=== PATIENT | male | born 1985 | race Caucasian/White ===

== ENCOUNTER 2018-01-02 12:04 | Inpatient (IN) ==
[2018-01-02] MEDS ORDERED: Ibuprofen 600 MG Tablet PO ONE (12:51)
[2018-01-02] MEDS ORDERED: Piperacil/Tazo 4.5 GM Premix 4.5 GM/100 ML BAG IV.SIG ONE (13:01)
[2018-01-02 13:08] LABS: ABG Base Excess 0.1 mmol/L (-2-2); ABG PCO2 27 mmHg (38-42); ABG PO2 78 mmHg (61-120)
--- NOTE | 2018-01-02 13:13 | ED ---
HPI General Chief complaint: Abdominal Pain Stated complaint: bilateral leg adema/vomiting blood/sob/poss fever History of Present Illness HPI narrative: Patient is a 32-year-old male with history of alcoholic cirrhosis , hepatitis C who presents emergency department for a week and a half history of worsening swelling of his legs his scrotum gradually worsening shortness of breath as well. He states that he did have a drink about a week and half ago, nursing staff reports to me that he was drinking in the waiting room as denies IV drug abuse history. No chest pain but does endorse abdominal pain which is generalized. No constipation no diarrhea no blood in stool. Related Data Home Medications Medication Instructions Recorded Confirmed No Known Home Medications 01/02/18 01/02/18 Allergies Allergy/AdvReac Type Severity Reaction Status Date / Time codeine Allergy Severe HIVES Verified 01/02/18 12:41 phenytoin Allergy Severe HIVES Verified 01/02/18 12:41 Review of Systems ROS: all other systems reviewed are negative PMFSH Medical History Medical History Afib (Acute) Hep C w/o coma, chronic (Acute) Hypertension (Acute) Liver cirrhosis (Acute) Substance abuse (Acute) Surgical History Surgical History No history of previous surgery (Acute) Social History Social History Substance History: Past History Second Hand Smoke Exposure: Yes Smoking Status: Heavy tobacco smoker Tobacco Type: Cigarettes How Often Do You Have a Drink Containing Alcohol: 2 to 4 times a month Recent Travel in [facility] within the Last 8 Weeks: No Recent Out of Country Travel within the Last 8 Weeks: No Immunization History Tetanus Immunization: Unable to Assess Hx Influenza Vaccine This Season: No Exam Narrative Exam Narrative: GENERAL: Well-developed well-nourished nontoxic appearing 32- year-old male. SKIN: Focused skin assessment warm/dry. Mildly jaundiced HEAD: Atraumatic. Normocephalic. EYES: Pupils equal and round. Positive scleral icterus. No injection or drainage. ENT: No nasal bleeding or discharge. Mucous membranes pink and moist. NECK: Trachea midline. No JVD. CARDIOVASCULAR: Regular rhythm with tachycardia. No murmur appreciated. RESPIRATORY: No accessory muscle use. Bibasilar rales, tachypnea peer. Breath sounds equal bilaterally. GASTROINTESTINAL: Abdomen soft, non-tender, nondistended. Hepatic and splenic margins not palpable. Genitourinary: Exam shows edematous scrotum, non-erythematous, minimally tender to palpation. Penis appears normal, circumcised. No edema of the perineal area. No redness no erythema of the perineal area. MUSCULOSKELETAL: No obvious deformities. No clubbing. No cyanosis. There is 2 + pitting edema from his bellybutton distally, NEUROLOGICAL: Awake and alert. No obvious cranial nerve deficits. Motor grossly within normal limits. Normal speech. PSYCHIATRIC: Appropriate mood and affect; insight and judgment normal. Course Initial Documented Vital Signs Temperature 103.2 F H 01/02/18 12:35 Pulse Rate 119 H 01/02/18 12:35 Respiratory Rate 24 01/02/18 12:35 Blood Pressure 180/70 H 01/02/18 12:35 Pulse Oximetry 96 01/02/18 12:35 Last Documented Vital Signs Temperature 97.8 F 01/02/18 20:32 Pulse Rate 81 01/02/18 20:32 Respiratory Rate 23 01/02/18 20:32 Blood Pressure 112/54 L 01/02/18 20:32 Pulse Oximetry 100 01/02/18 20:32 Critical Care Time Critical Care Time: Yes Total Critical Care Time: 35 Attestation: Critical care time is 35 minutes. Billable procedure time not included. Significant risk to patient disability and organ failure. Medical Decision Making MDM Narrative Medical decision making narrative: Patient roomed in the ER. Looks toxic. Severely anemic. Severe anasarca. Lactic acid elevated. He has normal WBC but elevated since last month and 90% neutrophils. DDx includes SBP, Endocarditits, Colitis, Pneumonia, UTI. Patient had cursory bedside examination under ultrasound. Has ascites but it does not have a big enough collection to be safe for ER diagnostic paracentesis. Patient remains hemodynamically stable. Fluid resuscitation held secondary to anasarca and normal BP. Will be transported to main [facility] for Dr. Vicente's care. No emesis reported by patient, none in ER, no diarrhea, no blood in the stool according to patient. Medical Screen Exam Complete: Yes Emergency Medical Condition: Yes Lab Data Result diagrams: 01/02/18 18:00 01/02/18 18:00 Lab Results 01/02/18 01/02/18 01/02/18 Range/Units 12:58 13:01 13:07 CBC w Diff WBC (4.0-11.0) th/mm3 RBC (4.50-5.90) mil/mm3 Hgb (13.0-17.0) gm/dL Hct (39.0-51.0) % MCV (80.0-100.0) fL MCH (27.0-34.0) pg MCHC (32.0-36.0) % RDW (11.6-17.2) % Plt Count (150-450) th/mm3 MPV (7.0-11.0) fL Prelim Diff (Auto) Neut % (Auto) (16.0-70.0) % Lymph % (Auto) (9.0-44.0) % Stephens % (Auto) (0.0-8.0) % Eos % (Auto) (0.0-4.0) % Baso % (Auto) (0.0-2.0) % Neut # (Auto) (1.8-7.7) th/mm3 Lymph # (Auto) (1.0-4.8) th/mm3 Stephens # (Auto) (0.0-0.9) th/mm3 Eos # (Auto) (0.0-0.4) th/mm3 Baso # (Auto) (0.0-0.2) th/mm3 WBC Differential Diff Scan Seg Neuts % (Manual) (16-70) % Band Neuts % (Manual) (0-6) % Lymphocytes % (Manual) (9-44) % Monocytes % (Manual) (0-8) % Metamyelocytes % (Man) (0-1) % Abs Neuts (Manual) (1.8-7.7) th/mm3 Differential Comment Platelet Estimate (Normal) Platelet Morphology (Normal) Target Cells (None) Ovalocytes (None) PT (9.8-11.6) sec INR Ratio APTT (24.3-30.1) sec Puncture Site Right radial Patient Temperature 98.6 O2 Saturation 94 (90-100) % ABG pH 7.54 H* (7.380-7.420) ABG pCO2 27 L (38-42) mmHg ABG pO2 78 (61-120) mmHg ABG HCO3 23 (22-26) mmol/L ABG O2 Content 6.8 L (12.0-20.0) Vol % ABG Base Excess 0.1 (-2-2) mmol/L ABG Methemoglobin 1.5 (0-2) % Eric Test Present Hemoglobin 5.1 L* (12.0-16.0) G/DL Carboxyhemoglobin 3.4 (0-4) % O2 Delivery Device Nasal cannula Liter Flow 2.00 L/M Inspired O2 21 % Critical Value Yes Sodium (136-145) meq/L Potassium (3.5-5.1) meq/L Chloride (98-107) meq/L Carbon Dioxide (21.0-32.0) meq/L Anion Gap (5-15) meq/L BUN (7-18) mg/dL Creatinine (0.60-1.30) mg/dL Estimated GFR (>89) mL/min POC Glucose 141 H (68-110) mg/dl Random Glucose (74-106) mg/dL Lactic Acid Cancelled Calcium (8.5-10.1) mg/dL Prot Corrected Calcium (8.5-10.1) mg/dL Phosphorus (2.5-4.9) mg/dL Magnesium (1.5-2.5) mg/dL Total Bilirubin (0.2-1.0) mg/dL AST (15-37) U/L ALT (12-78) U/L Alkaline Phosphatase (45-117) U/L Total Creatine Kinase (39-308) U/L Troponin I (0.02-0.05) ng/mL Total Protein (6.4-8.2) g/dL Albumin (3.4-5.0) g/dL Lipase (73-393) U/L Blood Type Antibody Screen MTS Gel Crossmatch 01/02/18 01/02/18 01/02/18 Range/Units 13:07 13:10 13:10 CBC w Diff WBC (4.0-11.0) th/mm3 RBC (4.50-5.90) mil/mm3 Hgb (13.0-17.0) gm/dL Hct (39.0-51.0) % MCV (80.0-100.0) fL MCH (27.0-34.0) pg MCHC (32.0-36.0) % RDW (11.6-17.2) % Plt Count (150-450) th/mm3 MPV (7.0-11.0) fL Prelim Diff (Auto) Neut % (Auto) (16.0-70.0) % Lymph % (Auto) (9.0-44.0) % Stephens % (Auto) (0.0-8.0) % Eos % (Auto) (0.0-4.0) % Baso % (Auto) (0.0-2.0) % Neut # (Auto) (1.8-7.7) th/mm3 Lymph # (Auto) (1.0-4.8) th/mm3 Stephens # (Auto) (0.0-0.9) th/mm3 Eos # (Auto) (0.0-0.4) th/mm3 Baso # (Auto) (0.0-0.2) th/mm3 WBC Differential Diff Scan Seg Neuts % (Manual) (16-70) % Band Neuts % (Manual) (0-6) % Lymphocytes % (Manual) (9-44) % Monocytes % (Manual) (0-8) % Metamyelocytes % (Man) (0-1) % Abs Neuts (Manual) (1.8-7.7) th/mm3 Differential Comment Platelet Estimate (Normal) Platelet Morphology (Normal) Target Cells (None) Ovalocytes (None) PT (9.8-11.6) sec INR Ratio APTT (24.3-30.1) sec Puncture Site Patient Temperature O2 Saturation (90-100) % ABG pH (7.380-7.420) ABG pCO2 (38-42) mmHg ABG pO2 (61-120) mmHg ABG HCO3 (22-26) mmol/L ABG O2 Content (12.0-20.0) Vol % ABG Base Excess (-2-2) mmol/L ABG Methemoglobin (0-2) % Eric Test Hemoglobin (12.0-16.0) G/DL Carboxyhemoglobin (0-4) % O2 Delivery Device Liter Flow L/M Inspired O2 % Critical Value Sodium (136-145) meq/L Potassium (3.5-5.1) meq/L Chloride (98-107) meq/L Carbon Dioxide (21.0-32.0) meq/L Anion Gap (5-15) meq/L BUN (7-18) mg/dL Creatinine (0.60-1.30) mg/dL Estimated GFR (>89) mL/min POC Glucose (68-110) mg/dl Random Glucose (74-106) mg/dL Lactic Acid 3.3 H Calcium (8.5-10.1) mg/dL Prot Corrected Calcium (8.5-10.1) mg/dL Phosphorus (2.5-4.9) mg/dL Magnesium (1.5-2.5) mg/dL Total Bilirubin (0.2-1.0) mg/dL AST (15-37) U/L ALT (12-78) U/L Alkaline Phosphatase (45-117) U/L Total Creatine Kinase (39-308) U/L Troponin I (0.02-0.05) ng/mL Total Protein (6.4-8.2) g/dL Albumin (3.4-5.0) g/dL Lipase (73-393) U/L Blood Type A Negative Antibody Screen Negative MTS Gel Crossmatch See Detail 01/02/18 01/02/18 01/02/18 Range/Units 13:18 13:18 13:18 CBC w Diff Slide review pending WBC 8.2 (4.0-11.0) th/mm3 RBC 2.07 L (4.50-5.90) mil/mm3 Hgb 4.8 L* (13.0-17.0) gm/dL Hct 15.0 L* (39.0-51.0) % MCV 72.5 L (80.0-100.0) fL MCH 23.3 L (27.0-34.0) pg MCHC 32.1 (32.0-36.0) % RDW 18.1 H (11.6-17.2) % Plt Count 105 L (150-450) th/mm3 MPV 8.9 (7.0-11.0) fL Prelim Diff (Auto) Neut % (Auto) 90.7 H (16.0-70.0) % Lymph % (Auto) 4.1 L (9.0-44.0) % Stephens % (Auto) 4.8 (0.0-8.0) % Eos % (Auto) 0.0 (0.0-4.0) % Baso % (Auto) 0.4 (0.0-2.0) % Neut # (Auto) 7.5 (1.8-7.7) th/mm3 Lymph # (Auto) 0.3 L (1.0-4.8) th/mm3 Stephens # (Auto) 0.4 (0.0-0.9) th/mm3 Eos # (Auto) 0.0 (0.0-0.4) th/mm3 Baso # (Auto) 0.0 (0.0-0.2) th/mm3 WBC Differential . Diff Scan Auto diff confirmed Seg Neuts % (Manual) (16-70) % Band Neuts % (Manual) (0-6) % Lymphocytes % (Manual) (9-44) % Monocytes % (Manual) (0-8) % Metamyelocytes % (Man) (0-1) % Abs Neuts (Manual) (1.8-7.7) th/mm3 Differential Comment . Platelet Estimate Low L (Normal) Platelet Morphology Normal (Normal) Target Cells (None) Ovalocytes 1+ H (None) PT 13.9 H (9.8-11.6) sec INR 1.4 Ratio APTT 23.6 L (24.3-30.1) sec Puncture Site Patient Temperature O2 Saturation (90-100) % ABG pH (7.380-7.420) ABG pCO2 (38-42) mmHg ABG pO2 (61-120) mmHg ABG HCO3 (22-26) mmol/L ABG O2 Content (12.0-20.0) Vol % ABG Base Excess (-2-2) mmol/L ABG Methemoglobin (0-2) % Eric Test Hemoglobin (12.0-16.0) G/DL Carboxyhemoglobin (0-4) % O2 Delivery Device Liter Flow L/M Inspired O2 % Critical Value Sodium 136 (136-145) meq/L Potassium 3.9 (3.5-5.1) meq/L Chloride 102 (98-107) meq/L Carbon Dioxide 23.9 (21.0-32.0) meq/L Anion Gap 10 (5-15) meq/L BUN 8 (7-18) mg/dL Creatinine 0.81 (0.60-1.30) mg/dL Estimated GFR Greater than 89 (>89) mL/min POC Glucose (68-110) mg/dl Random Glucose 121 H (74-106) mg/dL Lactic Acid Calcium 7.2 L* (8.5-10.1) mg/dL Prot Corrected Calcium 7.6 L (8.5-10.1) mg/dL Phosphorus 1.8 L (2.5-4.9) mg/dL Magnesium 1.7 (1.5-2.5) mg/dL Total Bilirubin 1.0 (0.2-1.0) mg/dL AST 19 (15-37) U/L ALT 16 (12-78) U/L Alkaline Phosphatase 108 (45-117) U/L Total Creatine Kinase 45 (39-308) U/L Troponin I 0.04 (0.02-0.05) ng/mL Total Protein 6.3 L (6.4-8.2) g/dL Albumin 2.2 L (3.4-5.0) g/dL Lipase 84 (73-393) U/L Blood Type Antibody Screen MTS Gel Crossmatch 01/02/18 01/02/18 01/02/18 Range/Units 15:28 18:00 18:00 CBC w Diff WBC 9.4 (4.0-11.0) th/mm3 RBC 1.90 L (4.50-5.90) mil/mm3 Hgb 4.4 L* (13.0-17.0) gm/dL Hct 13.9 L* (39.0-51.0) % MCV 73.3 L (80.0-100.0) fL MCH 22.9 L (27.0-34.0) pg MCHC 31.2 L (32.0-36.0) % RDW 19.0 H (11.6-17.2) % Plt Count 83 L (150-450) th/mm3 MPV 8.6 (7.0-11.0) fL Prelim Diff (Auto) Slide review pending Neut % (Auto) 86.6 H (16.0-70.0) % Lymph % (Auto) 6.0 L (9.0-44.0) % Stephens % (Auto) 7.3 (0.0-8.0) % Eos % (Auto) 0.0 (0.0-4.0) % Baso % (Auto) 0.1 (0.0-2.0) % Neut # (Auto) 8.1 H (1.8-7.7) th/mm3 Lymph # (Auto) 0.6 L (1.0-4.8) th/mm3 Stephens # (Auto) 0.7 (0.0-0.9) th/mm3 Eos # (Auto) 0.0 (0.0-0.4) th/mm3 Baso # (Auto) 0.0 (0.0-0.2) th/mm3 WBC Differential Manual diff final Diff Scan Seg Neuts % (Manual) 59 (16-70) % Band Neuts % (Manual) 34 H (0-6) % Lymphocytes % (Manual) 3 L (9-44) % Monocytes % (Manual) 2 (0-8) % Metamyelocytes % (Man) 2 H (0-1) % Abs Neuts (Manual) 8.9 H (1.8-7.7) th/mm3 Differential Comment . Platelet Estimate Low L (Normal) Platelet Morphology Enlarged H (Normal) Target Cells 1+ H (None) Ovalocytes 1+ H (None) PT (9.8-11.6) sec INR Ratio APTT (24.3-30.1) sec Puncture Site Patient Temperature O2 Saturation (90-100) % ABG pH (7.380-7.420) ABG pCO2 (38-42) mmHg ABG pO2 (61-120) mmHg ABG HCO3 (22-26) mmol/L ABG O2 Content (12.0-20.0) Vol % ABG Base Excess (-2-2) mmol/L ABG Methemoglobin (0-2) % Eric Test Hemoglobin (12.0-16.0) G/DL Carboxyhemoglobin (0-4) % O2 Delivery Device Liter Flow L/M Inspired O2 % Critical Value Sodium 137 (136-145) meq/L Potassium 4.0 (3.5-5.1) meq/L Chloride 102 (98-107) meq/L Carbon Dioxide 24.9 (21.0-32.0) meq/L Anion Gap 10 (5-15) meq/L BUN 10 (7-18) mg/dL Creatinine 0.87 (0.60-1.30) mg/dL Estimated GFR Greater than 89 (>89) mL/min POC Glucose (68-110) mg/dl Random Glucose 100 (74-106) mg/dL Lactic Acid 1.8 Calcium 7.3 L* (8.5-10.1) mg/dL Prot Corrected Calcium 8.0 L (8.5-10.1) mg/dL Phosphorus (2.5-4.9) mg/dL Magnesium (1.5-2.5) mg/dL Total Bilirubin (0.2-1.0) mg/dL AST (15-37) U/L ALT (12-78) U/L Alkaline Phosphatase (45-117) U/L Total Creatine Kinase (39-308) U/L Troponin I (0.02-0.05) ng/mL Total Protein 5.8 L (6.4-8.2) g/dL Albumin (3.4-5.0) g/dL Lipase (73-393) U/L Blood Type Antibody Screen MTS Gel Crossmatch Imaging Data Radiologist's impression: Chest X-Ray 01/02/18 12:51 CONCLUSION: Negative examination. Abdomen/Pelvis CT 01/02/18 12:58 CONCLUSION: 1. Cirrhosis and portal hypertension. 2. Abnormal circumferential bowel wall thickening involving the transverse colon and descending colon characteristic of colitis. Chest CT 01/02/18 13:39 CONCLUSION: 1. The study is breathing motion degraded. 2. Mild cardiomegaly. 3. Minimal bibasilar atelectasis. 4. Hiatal hernia. Discharge Plan Discharge Disposition Patient Disposition: 30 Still Patient Discharge Condition Condition: Serious Discharge Details Diagnosis: Sepsis, Ascites of liver, Colitis, Anemia requiring transfusions Physicians Team ED Provider: Yony Rosario Primary Care Provider: UNKNOWN, Attending Provider: Shanda Vicente Other Providers: Adam Sanchez Discharge Interventions Interventions: ED Discharge Assessment Last Done: 01/02/18 16:42 Vital Signs Last Done: 01/02/18 13:29 Status ED Status: Left Department Discharge Information Discharge Date/Time: 01/02/18 16:43
--- NOTE | 2018-01-02 13:25 | XR ---
EXAM DATE: 01/02/2018 1:21 PM EDT AGE/SEX: 32 years / Male INDICATIONS: Chest pain CLINICAL DATA: This is the patient's initial encounter. Patient reports that signs and symptoms have been present for 1 day and indicates a pain score of 7/10. MEDICAL/SURGICAL HISTORY: . Cardiovascular disease. Cirrhosis. None. COMPAR[place]: [facility] [place], 11/26[place]2015. . FINDINGS: A single AP view of the chest demonstrates the lungs to be symmetrically aerated without evidence of mass, infiltrate or effusion. The cardiomediastinal contours are unremarkable. Osseous structures a re intact. CONCLUSION: Negative examination. Electronically signed by: Josse Patel MD 01/02/2018 1:23 PM EDT
[2018-01-02 13:39] LABS: Baso % (Auto) 0.4 % (0.0-2.0); Lymph # (Auto) 0.3 th/mm3 (1.0-4.8); Lymph % (Auto) 4.1 % (9.0-44.0); Mean Corpuscular HGB Conc 32.1 % (32.0-36.0); Mean Corpuscular Hemoglobin 23.3 pg (27.0-34.0); Mean Corpuscular Volume 72.5 fL (80.0-100.0); Mean Platelet Volume 8.9 fL (7.0-11.0); Mono # (Auto) 0.4 th/mm3 (0.0-0.9); Mono % (Auto) 4.8 % (0.0-8.0); Neut # (Auto) 7.5 th/mm3 (1.8-7.7); Neut % (Auto) 90.7 % (16.0-70.0); Platelet Count 105 th/mm3 (150-450); Red Blood Count 2.07 mil/mm3 (4.50-5.90); Red Cell Distribution Width 18.1 % (11.6-17.2); White Blood Count 8.2 th/mm3 (4.0-11.0)
[2018-01-02 13:41] LABS: Hemoglobin 4.8 gm/dL (13.0-17.0)
[2018-01-02 13:44] LABS: Chloride 102 meq/L (98-107); Potassium 3.9 meq/L (3.5-5.1); Sodium 136 meq/L (136-145)
[2018-01-02 13:51] LABS: Activated Partial Thrombo Time 23.6 sec (24.3-30.1); INR 1.4 Ratio; Prothrombin Time 13.9 sec (9.8-11.6)
[2018-01-02] MEDS ORDERED: Sodium Chlor 0.9% Inj 250 ML IV.SIG SCH ×2 (14:00→18:00)
[2018-01-02 14:08] LABS: Alanine Aminotransferase 16 U/L (12-78); Albumin 2.2 g/dL (3.4-5.0); Alkaline Phosphatase 108 U/L (45-117); Anion Gap 10 meq/L (5-15); Aspartate Aminotransferase 19 U/L (15-37); Blood Urea Nitrogen 8 mg/dL (7-18); Calcium 7.2 mg/dL (8.5-10.1); Carbon Dioxide 23.9 meq/L (21.0-32.0); Creatine Kinase 45 U/L (39-308); Glomerular Filtration Rate Greater Than 89 mL/min (>89); Glucose,Random 121 mg/dL (74-106); Lipase 84 U/L (73-393); Magnesium 1.7 mg/dL (1.5-2.5); Phosphorus 1.8 mg/dL (2.5-4.9); Total Protein 6.3 g/dL (6.4-8.2); Troponin I 0.04 ng/mL (0.02-0.05)
[2018-01-02] MEDS ORDERED: Vancomycin Inj 1 GM/200 ML PIGGYBACK IV.SIG ONE (14:08)
[2018-01-02 14:17] LABS: Ovalocytes 1+; Platelet Morphology Normal (Normal)
--- NOTE | 2018-01-02 14:49 | CT ---
EXAM DATE: 01/02/2018 2:45 PM EDT AGE/SEX: 32 years / Male INDICATIONS: Diffuse abdominal pain and distention. Fever. CLINICAL DATA: This is the patient's initial encounter. Patient reports that signs and symptoms have been present for 1 week and indicates a pain score of 8/10. MEDICAL/SURGICAL HISTORY: Cirrhosis. Hepatitis C. Hypertension. Substance abuse. None. ORAL CONTRAST: No oral contrast ingested. RADIATION DOSE: 16.56 CTDI (mGy) ; Combined studies COMPARISON: [facility], CT ABDOMEN & PELVIS W/O CONTRAST, 02/06/2016. . TECHNIQUE: Multiple contiguous axial images were obtained through the abdomen and pelvis following b olus infusion of 90 ml Omnipaque 350 (iohexol) nonionic water-soluble contrast as a cumulative dose for multiple exams. No oral contrast ingested. Using automated exposure control and adjustment of t he mA and/or kV according to patient size, radiation dose was kept as low as reasonably achievable to obtain optimal diagnostic quality images. DICOM format image data is available electronically for r eview and comparison. FINDINGS: There are dependent atelectatic changes noted. There is circumferential esophageal wall thickening an d esophageal varices suspected. Cirrhotic liver is noted with nodular contour. Splenomegaly is identi fied up to 18.2 cm in AP dimension. Pancreas, kidneys, adrenal glands are unremarkable. Small caliber varices in the gastrohepatic ligament and periportal mildly prominent lymph nodes are noted measurin g up to 1.7 cm in the marisol hepatis. There is ascites identified and body wall edema. Urinary bladder , prostate unremarkable. No evidence for bowel obstruction. There is abnormal circumferential bowel w all thickening involving the mid transverse colon through the descending colon characteristic of coli tis. The osseous structures are intact. CONCLUSION: 1. Cirrhosis and portal hypertension. 2. Abnormal circumferential bowel wall thickening involving the transverse colon and descending colo n characteristic of colitis. Electronically signed by: Adriano Keller MD 01/02/2018 2:48 PM EDT
--- NOTE | 2018-01-02 14:52 | CT ---
EXAM DATE: 01/02/2018 2:41 PM EDT AGE/SEX: 32 years / Male INDICATIONS: Short of breath. Fever. CLINICAL DATA: This is the patient's initial encounter. Patient reports that signs and symptoms have been present for 1 week and indicates a pain score of 5/10. MEDICAL/SURGICAL HISTORY: Cirrhosis. Hepatitis C. Hypertension. Substance abuse. None. RADIATION DOSE: 16.56 CTDI (mGy) ; Combined studies COMPARISON: [facility] [place]ULMON[place]IO[place], 05/24/2015. . TECHNIQUE: Multiple contiguous axial images were obtained through the chest during bolus infusion of 90 ml Omnipaque 350 (iohexol) nonionic water-soluble contrast as a cumulative dose for multiple exa ms. Images were obtained in suspended respiration using multiple row detector helical technique. U sing automated exposure control and adjustment of the mA and/or kV according to patient size, radiati on dose was kept as low as reasonably achievable to obtain optimal diagnostic quality images. DICOM format image data is available electronically for review and comparison. FINDINGS: The study is breathing motion degraded. Lungs: Minimal dependent atelectasis within the posterior basilar segments bilaterally. The lungs ar e symmetrically aerated. No infiltrates or nodular densities are seen. Mediastinum: Mild cardiomegaly without pericardial effusion. Small hiatal hernia. No appreciable alycia nopathy. Great vessels are normal in size.. Pleurae: No evidence of focal thickening or pleural effusion. Axillae: Unremarkable. Bony Structures: Unremarkable. Miscellaneous: See the CT of the abdomen and pelvis reported separately.. CONCLUSION: 1. The study is breathing motion degraded. 2. Mild cardiomegaly. 3. Minimal bibasilar atelectasis. 4. Hiatal hernia. Electronically signed by: Josse Patel MD 01/02/2018 2:51 PM EDT
[2018-01-02] MEDS ORDERED: Vancomycin Inj 1,000 MG in Sodium Chlor 0.9% Inj 250 ML IV.SIG ONE (15:00)
[2018-01-02] MEDS ORDERED: Potassium Chlor 20 mEq Premix 20 MEQ/100 ML PIGGYBACK IV.SIG PRN ×2 (15:08)
[2018-01-02] MEDS ORDERED: Magnesium Sulfate Inj 2 GM in Sodium Chlor 0.9% Inj 96 ML IV.SIG PRN (15:08)
[2018-01-02] MEDS ORDERED: Potassium Chlor 40 mEq Premix 40 MEQ/100 ML PIGGYBACK IV.SIG PRN ×2 (15:08)
[2018-01-02] MEDS ORDERED: Potassium Phosphate 500 MG Soluble Tablet PO PRN ×2 (15:08)
[2018-01-02] MEDS ORDERED: Potassium Phosphate Inj 30 MMOL in Sodium Chlor 0.9% Inj 250 ML IV.SIG PRN (15:08)
[2018-01-02] MEDS ORDERED: Magnesium Sulfate Inj 4 GM in Sodium Chlor 0.9% Inj 92 ML IV.SIG PRN (15:08)
[2018-01-02] MEDS ORDERED: Magnesium Oxide 400 MG Tablet PO PRN (15:08)
[2018-01-02] MEDS ORDERED: Sodium Phosphate Inj 30 MMOL in Sodium Chlor 0.9% Inj 250 ML IV.SIG PRN (15:08)
[2018-01-02] MEDS ORDERED: Potassium Chloride 25 MEQ Effervescent Tablet PO PRN (15:08)
[2018-01-02] MEDS ORDERED: HYDROmorphone PF Inj 2 MG/ML Vial IV.PUSH PRN (17:31)
--- NOTE | 2018-01-02 17:58 | P.HPCC ---
History of Present Illness Service: [facility] Primary Care Physician: UNKNOWN- patient does not recall his PMD's name Chief Complaint: Abdominal pain, hematemesis, fever History of Present Illness: 32yM who presented to [facility] complaining of a week and a half of abdominal pain. He states that he's been having diffuse "aching" abdominal pain which is constant, non-radiating, not made better or worse by anything, moderate to severe intensity, associated with abdominal distension. He says that about a week ago he was "throwing up a lot of bright red blood" but has not had this for the past several days, denies bloody/ black/ tarry stools. He also reports 5-7 days of bilateral lower extremity and scrotal edema. He presented to the ED today because he had tactile fever and "I was so weak I couldn't get out of bed". He has a history of hepatitis C and cirrhosis, A fib of uncertain etiology, and hypertension. He does not take any home meds (specifically denies use of anticoagulants/ antiplatelets). Family history is non-contributory. - Diagnosis (1) Hematemesis (2) Anemia requiring transfusions (3) GI bleed (4) Esophageal varices in cirrhosis (5) Ascites of liver (6) Colitis (7) Sepsis (8) Tobacco use disorder Inpatient Certification: I certify that the inpatient services were ordered in accordance with Medicare regulations governing the order. This includes certification that hospital inpatient services are reasonable and necessary and in the case of services not specified as inpatient-only under 42 CFR 419.22(n), that they are appropriately provided as inpatient services in accordance to with the 2-midnight benchmark under 43 CFR 412.3(e) Estimated Total Length of Stay (Days): 3 Plans for Post Hospital Care: Home (Admit to [facility]) Review of Systems Constitutional: Reports fever(s) Eyes: Denies blurry vision Ears, Nose, Mouth, and Throat: Reports dizziness Cardiovascular: Denies chest pain Respiratory: Reports cough Gastrointestinal: Reports abdominal pain Genitourinary: Reports scrotal swelling Musculoskeletal: Reports body aches Skin/Breast: Denies yellowing of the skin Neurologic: Reports dizziness PMFSH - History History Provided By: Patient - Medical / Surgical Hx Neg / Unobtainable Surgical History: No Previous Surgery - Medical History Medical History: Medical History (Last Updated 11/15/17 @ 00:57 by Silvina Hare) Afib Hep C w/o coma, chronic Hypertension Liver cirrhosis Substance abuse - Surgical History Surgical History: Surgical History (Last Updated 01/02/18 @ 17:46 by Shanda Vicente DO) No history of previous surgery (Acute) - Social History I have reviewed the patient's Social History: Yes - Tobacco History Second Hand Smoke Exposure: Yes Tobacco Use In Past 30 Days: Yes (1 ppd) Smoking Status: Heavy tobacco smoker Tobacco Type: Cigarettes - Alcohol History How Often Do You Have a Drink Containing Alcohol: 2 to 4 times a month (Patient reports previous history of alcohol abuse/ dependence, reports that he has not drank heavily x several months) - Substance Use History Substance History: Past History (Past history of oral and IV opiate abuse) - Travel History Recent Travel in the [facility] Within the Last 8 Weeks: No Recent Travel Out of the Country Within the Last 8 Weeks: No - Immunization History Tetanus Immunization: Unable to Assess Hx Influenza Vaccine This Season: No Medications and Allergies Active Medications: Active Medications Chlorhexidine Gluconate (Chlorhexidine 2% Cloth) 3 pack TOPICAL DAILY@0400 PRN PRN Reason: Extra cloth needed Stop: 01/08/18 03:59 Hydromorphone HCl (Dilaudid Pf Inj) 0.2 mg IV.PUSH Q4H PRN PRN Reason: PAIN SCALE 4 TO 6 MODERATE Hydromorphone HCl (Dilaudid Pf Inj) 0.5 mg IV.PUSH Q4H PRN PRN Reason: PAIN SCALE 7 TO 10 SEVERE Sodium Chloride (Ns Inj) 250 mls @ 15 mls/hr IV.SIG ONCE NAVID Stop: 01/03/18 06:39 Magnesium Sulfate Inj 4 gm/ (Sodium Chloride) 100 mls @ 50 mls/hr IV.SIG UNSCH PRN PRN Reason: For Magnesium 0.9 - 1.1 mg/dL Magnesium Sulfate Inj 2 gm/ (Sodium Chloride) 100 mls @ 50 mls/hr IV.SIG UNSCH PRN PRN Reason: For Magnesium 1.2 - 1.6 mg/dL Potassium Chloride (Kcl 40 Meq Premix Inj) 40 meq in 100 mls @ 25 mls/hr IV.SIG Q2H PRN PRN Reason: For Potassium 2.8 - 3.2 mEq/L Potassium Chloride (Kcl 20 Meq Premix Inj) 20 meq in 100 mls @ 50 mls/hr IV.SIG Q2H PRN PRN Reason: For Potassium 3.3 - 3.5 mEq/L Potassium Chloride (Kcl 20 Meq Premix Inj) 20 meq in 100 mls @ 50 mls/hr IV.SIG Q2H PRN PRN Reason: For Potassium 2.8 - 3.2 mEq/L Sodium Phosphate 30 mmol/ (Sodium Chloride) 260 mls @ 42 mls/hr IV.SIG UNSCH PRN PRN Reason: For Phosphorus < 2.5 mg/dL Potassium Chloride (Kcl 40 Meq Premix Inj) 40 meq in 100 mls @ 25 mls/hr IV.SIG UNSCH PRN PRN Reason: For Potassium 3.3 - 3.5 mEq/L Potassium Phosphate 30 mmol/ (Sodium Chloride) 260 mls @ 42 mls/hr IV.SIG UNSCH PRN PRN Reason: SEE LABEL COMMENTS Pantoprazole Sodium 80 mg/ (Sodium Chloride) 35 mls @ 420 mls/hr IV.SIG BOLUS ONE Stop: 01/02/18 18:04 Pantoprazole Sodium 80 mg/ (Sodium Chloride) 100 mls @ 10 mls/hr IV.CONT Q10H NAVID Sodium Chloride (Ns Inj) 250 mls @ 15 mls/hr IV.SIG ONCE NAVID Stop: 01/03/18 10:39 Magnesium Oxide (Mag-Ox) 800 mg PO UNSCH PRN PRN Reason: For Magnesium 1.2 - 1.6 mg/dL Potassium Bicarb/Potassium Chloride (K-Lyte Cl Eff) 50 meq PO UNSCH PRN PRN Reason: For Potassium 3.3 - 3.5 mEq/L Potassium Phosphate (K-Phos Original) 2,000 mg PO Q4H PRN PRN Reason: Phosphorus Less Than 2.5 mg/dL Potassium Phosphate (K-Phos Original) 2,000 mg PO UNSCH PRN PRN Reason: SEE LABEL COMMENTS Sodium Chloride (Ns Flush) 2 ml IV.FLUSH BID NAVID Sodium Chloride (Ns Flush) 2 ml IV.FLUSH PRN PRN PRN Reason: FLUSH AFTER USING IV ACCESS Allergies Allergy/AdvReac Type Severity Reaction Status Date / Time codeine Allergy Severe HIVES Verified 01/02/18 12:41 phenytoin Allergy Severe HIVES Verified 09/05/18 12:41 Home Medications Medication Instructions Recorded Confirmed Type No Known Home Medications 01/02/18 01/02/18 History Results - Labs CBC & Chem 7: 01/02/18 13:18 01/02/18 13:18 Labs: Short CBC 01/02/18 Range/Units 13:18 WBC 8.2 (4.0-11.0) th/mm3 Hgb 4.8 L* (13.0-17.0) gm/dL Hct 15.0 L* (39.0-51.0) % Plt Count 105 L (150-450) th/mm3 BMP 01/02/18 13:18 Sodium 136 Potassium 3.9 Chloride 102 Carbon Dioxide 23.9 BUN 8 Creatinine 0.81 Calcium 7.2 L* Cardiac Enzymes 01/02/18 Range/Units 13:18 Total Creatine Kinase 45 (39-308) U/L Troponin I 0.04 (0.02-0.05) ng/mL Liver Function 01/02/18 Range/Units 13:18 Total Bilirubin 1.0 (0.2-1.0) mg/dL AST 19 (15-37) U/L ALT 16 (12-78) U/L Alkaline Phosphatase 108 (45-117) U/L Albumin 2.2 L (3.4-5.0) g/dL - Imaging Impressions Chest X-Ray 01/02/18 12:51 CONCLUSION: Negative examination. Abdomen/Pelvis CT 01/02/18 12:58 CONCLUSION: 1. Cirrhosis and portal hypertension. 2. Abnormal circumferential bowel wall thickening involving the transverse colon and descending colon characteristic of colitis. Chest CT 01/02/18 13:39 CONCLUSION: 1. The study is breathing motion degraded. 2. Mild cardiomegaly. 3. Minimal bibasilar atelectasis. 4. Hiatal hernia. Exam Vital signs: Vital Signs 01/02/18 12:35 01/02/18 12:41 01/02/18 13:29 Temperature 103.2 F H Pulse Rate 119 H 114 H 96 H Respiratory Rate 24 22 Blood Pressure 180/70 H 153/51 H 126/46 L Pulse Oximetry 96 98 01/02/18 15:37 Temperature Pulse Rate Respiratory Rate Blood Pressure Pulse Oximetry 100 Intake & Output 01/01/18 01/02/18 01/02/18 18:59 06:59 18:59 Intake Total 100 / 100 Balance 100 / 100 Weight 100 kg Intake: IV 100 / 100 Zosyn 4.5 GM Premix 4.5 gm In 100 / 100 100 ml @ 200 mls/hr IV.SIG ONCE ONE Rx#:[id number] Narrative: GEN: Ill-appearing, pale HEENT: NCAT, PERRL, mucosa pale and dry NECK: Trachea midline CARDIO: Regular rate and rhythm LUNGS: Clear to auscultation bilaterally ABD: Moderately distended with fluid wave, diffuse tenderness, palpable hepatosplenomegaly, no guarding or rebound EXT: 1-2+ pitting edema to knees bilaterally, trace to 1+ edema to hips bilaterally, scrotal edema SKIN: No rashes, (+) pallor, multiple tattoos NEURO: GCS 15, A&Ox3, speech clear and fluent, no tremor or asterixis, no focal neuro deficits PSYCH: Appropriate affect Septic Shock Reassessment Septic shock perfusion: reassessment completed (HR 70s, BP 120s/50s, skin cool) Caprini VTE Risk Assessment Caprini VTE Risk Assessment: No/Low Risk (score <= 1) (1) VTE Pharmacological Exception Reason: High risk for bleeding Caprini Risk Assessment Model: Point Value = 1 Point Value = 2 Point Value = 3 Point Value = 5 Age 41-60 Minor surgery BMI > 25 kg/m2 Swollen legs Varicose veins or History of unexplained or recurrent spontaneous Oral contraceptives or hormone replacement Sepsis (< 1 month) Serious lung disease, including pneumonia (< 1 month) Abnormal pulmonary function Acute myocardial infarction Congestive heart failure (< 1 month) History of inflammatory bowel disease Medical patient at bed rest Age 61-74 Arthroscopic surgery Major open surgery (> 45 min) Laparoscopic surgery (> 45 min) Malignancy Confined to bed (> 72 hours) Immobilizing plaster cast Central venous access Age >= 75 History of VTE Family history of VTE Factor V Leiden Prothrombin [id number] Lupus anticoagulant Anticardiolipin antibodies Elevated serum homocysteine Heparin-induced thrombocytopenia Other congenital or acquired thrombophilia Stroke (< 1 month) Elective arthroplasty Hip, pelvis, or leg fracture Acute spinal cord injury (< 1 month) Prophylaxis Regimen: Total Risk Factor Score Risk Level Prophylaxis Regimen 0-1 Low Early ambulation 2 Moderate Order ONE of the following: *Sequential Compression Device (SCD) *Heparin 5000 units SQ BID 3-4 Higher Order ONE of the following medications: *Heparin 5000 units SQ TID *Enoxaparin/Lovenox 40 mg SQ daily (WT < 150 kg, CrCl > 30 mL/min) *Enoxaparin/Lovenox 30 mg SQ daily (WT < 150 kg, CrCl > 10-29 mL/min) *Enoxaparin/Lovenox 30 mg SQ BID (WT < 150 kg, CrCl > 30 mL/min) AND/OR *Sequential Compression Device (SCD) 5 or more Highest Order ONE of the following medications: *Heparin 5000 units SQ TID (Preferred with Epidurals) *Enoxaparin/Lovenox 40 mg SQ daily (WT < 150 kg, CrCl > 30 mL/min) *Enoxaparin/Lovenox 30 mg SQ daily (WT < 150 kg, CrCl > 10-29 mL/min) *Enoxaparin/Lovenox 30 mg SQ BID (WT < 150 kg, CrCl > 30 mL/min) AND *Sequential Compression Device (SCD) Assessment and Plan - Problem List (1) Hematemesis Code(s): K92.0 - Hematemesis Status: Acute (2) Anemia requiring transfusions Code(s): D64.9 - Anemia, unspecified Status: Acute (3) GI bleed Code(s): K92.2 - Gastrointestinal hemorrhage, unspecified Status: Acute (4) Esophageal varices in cirrhosis Code(s): K74.60 - Unspecified cirrhosis of liver; I85.10 - Secondary esophageal varices without bleeding Status: Acute (5) Ascites of liver Code(s): R18.8 - Other ascites Status: Acute (6) Colitis Code(s): K52.9 - Noninfective gastroenteritis and colitis, unspecified Status : Acute (7) Sepsis Code(s): A41.9 - Sepsis, unspecified organism Status: Acute (8) Tobacco use disorder Code(s): F17.200 - Nicotine dependence, unspecified, uncomplicated Status: Acute - Assessment and Plan Plan: IMPRESSION: 32yM with history of hepatitis and cirrhosis presenting with severe anemia requiring transfusions, evidence of esophageal varices on CT scan, sepsis secondary to colitis, new ascites/ scrotal/ lower extremity edema PLAN: NEURO: -Pain control -Nicotine patch for tobacco use disorder, counseled on importance of smoking cessation -Patient denies current or recent alcohol abuse or withdrawal, monitor for withdrawal symptoms CARDIO: -EKG and monitor -History of A fib of uncertain etiology, not on home meds for rate control or anticoagulation -Trop 0.04 in ED, reports no chest pain RESP: -Incentive spirometry GI: -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, MELD score 10 -Case discussed with Dr. Sanchez of GI prior to the patient's arrival at our campus. He will need stat consult and likely upper endoscopy for suspected variceal GI bleed -Protonix bolus and drip -NPO, IVF -Check ammonia (LFTs essentially normal but INR 1.4 in the absence of anticoagulation) -Patient reports no episodes of hematemesis x 1 week, will hold off on octreotide for now -Obtain liver duplex US to rule out Budd Chiari or portal venous thrombus as patient's symptoms developed rather suddenly (7-10 days) -Consider IR paracentesis (see below) : -Patient is able to use a urinal for accurate Is/Os F/E/N- -NPO -Maintenance fluids -Electrolyte repletion protocol (in the setting of history of A fib and GI bleed , keep K+ >4.0 and Mg++ >2.0) ID- -Patient meets sepsis criteria, was given 1L crystalloid in ED and vanco/zosyn. Source appears to be colitis, although cannot entirely exclude SBP. Patient has no guarding or rebound on exam. Will continue zosyn for now (can switch to cefotaxime if GI prefers) -Bedside US performed in ED prior to transfer showed no ascitic pocket large enough for safe bedside drainage. The higher priority now is for blood transfusion and GI consult, but may consult IR for paracentesis (non-emergently) -Follow up results of cultures -Patient will require multiple units of PRBCs, so 30 cc/kg bolus will be partially crystalloid (given in ED) and partly blood products -Lactic acid cleared HEME- -2U PRBCs to be given stat, 4U on hold -Platelets 105K, goal is to keep >100K -INR 1.4, likely due to liver cirrhosis -Hold all anticoagulants/ antiplatelets for now as patient is at very high risk for hemorrhage PROPH- -SCDs only -Protonix bolus/drip Counseling/ Coordination of Care: Total critical care time: 65 minutes. This includes accepting the patient for transfer from a different facility, examining the patient, gathering history from someone other than the patient (i.e., chart review), discussing the patient 's care with other providers (ED physician, GI), ordering and interpreting radiology studies, ordering and interpreting laboratory studies, management of life-threatening GI bleed (administration of blood products, protonix bolus/ drip), management of sepsis (fluids, antibiotics), re-evaluation at frequent intervals, and documentation. All critical care time is separate and exclusive of procedures, teaching, and patient/ family updates. Code Status: Full code Discussed Condition With: Dr. Sanchez (GI)
[2018-01-02] MEDS ORDERED: Pantoprazole Inj 80 MG in Sodium Chlor 0.9% Inj 35 ML IV.SIG ONE (18:00)
[2018-01-02 18:37] LABS: Baso % (Auto) 0.1 % (0.0-2.0); Lymph # (Auto) 0.6 th/mm3 (1.0-4.8); Mean Corpuscular HGB Conc 31.2 % (32.0-36.0); Mean Corpuscular Hemoglobin 22.9 pg (27.0-34.0); Mean Corpuscular Volume 73.3 fL (80.0-100.0); Mean Platelet Volume 8.6 fL (7.0-11.0); Mono # (Auto) 0.7 th/mm3 (0.0-0.9); Mono % (Auto) 7.3 % (0.0-8.0); Neut # (Auto) 8.1 th/mm3 (1.8-7.7); Neut % (Auto) 86.6 % (16.0-70.0); Platelet Count 83 th/mm3 (150-450); White Blood Count 9.4 th/mm3 (4.0-11.0)
[2018-01-02 18:44] LABS: Anion Gap 10 meq/L (5-15); Blood Urea Nitrogen 10 mg/dL (7-18); Calcium 7.3 mg/dL (8.5-10.1); Carbon Dioxide 24.9 meq/L (21.0-32.0); Chloride 102 meq/L (98-107); Glomerular Filtration Rate Greater Than 89 mL/min (>89); Glucose,Random 100 mg/dL (74-106); Sodium 137 meq/L (136-145)
[2018-01-02 18:59] LABS: Hematocrit 13.9 % (39.0-51.0); Hemoglobin 4.4 gm/dL (13.0-17.0)
[2018-01-02 19:07] LABS: Total Protein 5.8 g/dL (6.4-8.2)
[2018-01-02 20:17] LABS: Lymphocytes 3 % (9-44); Metamyelocytes 2 % (0-1); Monocytes 2 % (0-8)
[2018-01-02 20:18] LABS: Target Cells 1+
[2018-01-02 20:19] LABS: Ovalocytes 1+
[2018-01-02] MEDS: Piperacil/Tazo 3.375 GM Premix 50 ML IV.SIG SCH (20:24)
[2018-01-02] MEDS: Pantoprazole Inj 80 MG in Sodium Chlor 0.9% Inj 100 ML IV.CONT SCH (20:43)
[2018-01-02] MEDS ORDERED: Famotidine 20 MG Tablet PO SCH (21:00)
[2018-01-02] MEDS ORDERED: Famotidine PF Inj 20 MG/2 ML Vial IV.PUSH SCH (21:00)
[2018-01-02 22:18] LABS: Bilirubin,Urine Negative (Negative); Clarity,Urine Clear (Clear); Color,Urine Yellow (Yellw/Straw); Glucose,Urine (UA) Negative (Negative); Leukocyte Esterase,Urine Negative (Negative); Mucus,Urine Few /lpf (Occasional); Nitrite,Urine Negative (Negative); Specific Gravity,Urine 1.035 (1.002-1.035); Squamous Epithelial Cell,Urine <1 /hpf (0-5)
--- NOTE | 2018-01-02 22:18 | US ---
EXAM DATE: 01/02/2018 10:10 PM EDT AGE/SEX: 32 years / Male INDICATIONS: Portal hypertension. CLINICAL DATA: This is the patient's initial encounter. Patient reports that signs and symptoms have been present for 1 day and indicates a pain score of 0/10. MEDICAL/SURGICAL HISTORY: Hepatitis C. Hypertension. Cirrhosis. Atrial fibrillation. Substan ce abuse. None. COMPARISON: [facility], US ABDOMEN - GALLBLADDER, 02/06/2016. . MEASUREMENTS: Liver:__ 18.5 cm. Common Bile Duct:___ 5mm. Right Kidney:___12.9 x 5.7 x 6.3 cm. Left Kidney:___ . Spleen:___ . FINDINGS: Liver: The liver is enlarged and demonstrates increased echogenicity consistent with fatty infiltrat ion and/or diffuse hepatic disease. No focal mass is noted. No biliary ductal dilatation is noted. Portal Vein: Hepatopedal flow seen in portal vein. Common Duct: No intraluminal mass or stone visualized. Gallbladder: The wall the gallbladder is mildly thickened. No stone or sonographic Jett's sign is n oted. Pancreas: The visualized portions are within normal limits Right Kidney: Normal echotexture and cortical thickness. No mass or hydronephrosis. Ascites: Ascites is noted within the abdomen. Spleen: Spleen is enlarged. Other: None. CONCLUSION: 1. Enlarged echogenic liver consistent with fatty infiltration and/or diffuse hepatocellular disease . 2. Ascites. 3. Hepatopedal flow within the portal vein. 4. Splenomegaly. 5. Gallbladder wall thickening. If there is clinical concern for acute cholecystitis, a hepatobiliar y scan may be helpful to confirm cystic duct obstruction. Electronically signed by: Yony Crenshaw MD 01/02/2018 10:17 PM EDT
[2018-01-02 22:21] LABS: Amphetamine Screen,Urine Neg (Neg); Barbiturate Screen,Urine Neg (Neg); Cannabinoid Screen,Urine Neg (Neg); Cocaine Screen,Urine Neg (Neg)
[2018-01-02 22:23] LABS: Opiate Screen,Urine Neg (Neg)
[2018-01-03] MEDS: HYDROmorphone PF Inj 2 MG/ML Vial IV.PUSH PRN ×4 (03:56→22:25)
[2018-01-03] MEDS ORDERED: Chlorhexidine Gluconate 2% 1 Pack (2 Cloths) TOPICAL SCH (04:00)
[2018-01-03] MEDS ORDERED: Chlorhexidine Gluconate 2% 1 Pack (2 Cloths) TOPICAL PRN (04:00)
[2018-01-03] MEDS: Pantoprazole Inj 80 MG in Sodium Chlor 0.9% Inj 100 ML IV.CONT SCH ×4 (04:45→18:38)
[2018-01-03] MEDS: Piperacil/Tazo 3.375 GM Premix 50 ML IV.SIG SCH ×4 (06:25→18:38)
[2018-01-03 07:12] LABS: Baso % (Auto) 0.5 % (0.0-2.0); Eos % (Auto) 0.1 % (0.0-4.0); Hematocrit 23.5 % (39.0-51.0); Hemoglobin 7.8 gm/dL (13.0-17.0); Lymph # (Auto) 0.8 th/mm3 (1.0-4.8); Lymph % (Auto) 9.7 % (9.0-44.0); Mean Corpuscular HGB Conc 33.4 % (32.0-36.0); Mean Corpuscular Hemoglobin 25.8 pg (27.0-34.0); Mean Corpuscular Volume 77.4 fL (80.0-100.0); Mean Platelet Volume 8.8 fL (7.0-11.0); Mono # (Auto) 0.8 th/mm3 (0.0-0.9); Mono % (Auto) 9.5 % (0.0-8.0); Neut # (Auto) 6.4 th/mm3 (1.8-7.7); Neut % (Auto) 80.2 % (16.0-70.0); Platelet Count 84 th/mm3 (150-450); Red Blood Count 3.04 mil/mm3 (4.50-5.90); Red Cell Distribution Width 19.2 % (11.6-17.2)
--- NOTE | 2018-01-03 07:26 | P.PNCC ---
Subjective Subjective Remarks/Hospital Course: 32yM who presented to [facility] complaining of a week and a half of abdominal pain. He states that he's been having diffuse "aching" abdominal pain which is constant, non-radiating, not made better or worse by anything, moderate to severe intensity, associated with abdominal distension. He says that about a week ago he was "throwing up a lot of bright red blood" but has not had this for the past several days, denies bloody/ black/ tarry stools. He also reports 5-7 days of bilateral lower extremity and scrotal edema. He presented to the ED today because he had tactile fever and "I was so weak I couldn't get out of bed". He has a history of hepatitis C and cirrhosis, A fib of uncertain etiology, and hypertension. He does not take any home meds (specifically denies use of anticoagulants/ antiplatelets). SUBJECTIVE: 01/03: Patient reports nausea and anxiety overnight, reports that he has a history of "panic attacks" and is requesting "something to calm me down". No episodes of hematemesis. Received 4U PRBCs in total overnight. Objective Vital Signs / I&O: Vital Signs 01/02/18 12:35 01/02/18 12:41 01/02/18 13:29 Temperature 103.2 F H Pulse Rate 119 H 114 H 96 H Respiratory Rate 24 22 Blood Pressure 180/70 H 153/51 H 126/46 L Pulse Oximetry 96 98 01/02/18 15:37 01/02/18 17:00 01/02/18 18:00 Temperature 98.2 F 97.9 F Pulse Rate 72 72 Respiratory Rate 24 26 H Blood Pressure 121/58 L 114/55 L Pulse Oximetry 100 95 94 L 01/02/18 18:26 01/02/18 18:43 01/02/18 20:00 Temperature 98.2 F 97.9 F Pulse Rate 75 75 Respiratory Rate 19 18 Blood Pressure 114/55 L 113/52 L Pulse Oximetry 94 L 100 100 01/02/18 20:32 01/02/18 21:00 01/02/18 22:49 Temperature 97.8 F 97.8 F Pulse Rate 81 71 Respiratory Rate 23 24 Blood Pressure 112/54 L 104/59 L Pulse Oximetry 100 100 100 09/06/18 04:25 Temperature 98.1 F Pulse Rate 69 Respiratory Rate 24 Blood Pressure 104/53 L Pulse Oximetry 100 Intake & Output 01/02/18 01/03/18 01/03/18 18:59 06:59 18:59 Intake Total 100 / 100 2735 / 2735 Output Total 2650 / 2650 Balance 100 / 100 85 / 85 Weight 100 kg Intake: IV 100 / 100 1135 / 1135 LR 1000 mL Inj 1,000 ML @ 84 1000 / 1000 mls/hr IV.CONT .[id number] [facility] Rx# :[id number] Protonix Inj 80 MG In NS Inj 35 35 / 35 ML @ 420 mls/hr IV.SIG BOLUS ONE Rx#:[id number] Zosyn 3.375 GM Premix 50 ML @ 100 / 100 100 mls/hr IV.SIG Q6H [facility] Rx#: [id number] Zosyn 4.5 GM Premix 4.5 gm In 100 / 100 100 ml @ 200 mls/hr IV.SIG ONCE ONE Rx#:[id number] Oral 0 / 0 Intake (Blood Product) Amt 0 / 0 1600 / 1600 Rbc As-3 Leukoreduced Unit 400 / 400 [id number] Rbc As-3 Leukoreduced Unit 400 / 400 [id number] Rbc As-3 Leukoreduced Unit 0 / 0 400 / 400 [id number] Rbc As-3 Leukoreduced Unit 400 / 400 [id number] Output: Urine 2650 / 2650 Other: Date of Last Bowel Movement 01/01/18 01/01/18 Result Diagrams: 01/03/18 06:30 01/02/18 18:00 Objective Remarks: GEN: Appears uncomfortable but no acute distress HEENT: NCAT, PERRL, mucosa dry NECK: Trachea midline CARDIO: Regular rate and rhythm LUNGS: Clear to auscultation bilaterally ABD: Moderately distended, diffuse tenderness, no guarding or rebound EXT: 1-2+ pitting edema to knees bilaterally, trace to 1+ edema to hips bilaterally SKIN: No rashes or lesions NEURO: GCS 15, A&Ox3, speech clear and fluent, no tremor, no focal neuro deficits PSYCH: Appropriate affect Assessment and Plan - Problem List (1) Hematemesis Code(s): K92.0 - Hematemesis Status: Acute (2) Anemia requiring transfusions Code(s): D64.9 - Anemia, unspecified Status: Acute (3) GI bleed Code(s): K92.2 - Gastrointestinal hemorrhage, unspecified Status: Acute (4) Esophageal varices in cirrhosis Code(s): K74.60 - Unspecified cirrhosis of liver; I85.10 - Secondary esophageal varices without bleeding Status: Acute (5) Ascites of liver Code(s): R18.8 - Other ascites Status: Acute (6) Colitis Code(s): K52.9 - Noninfective gastroenteritis and colitis, unspecified Status : Acute (7) Sepsis Code(s): A41.9 - Sepsis, unspecified organism Status: Acute (8) Tobacco use disorder Code(s): F17.200 - Nicotine dependence, unspecified, uncomplicated Status: Acute - Assessment and Plan Plan: IMPRESSION: 32yM with history of hepatitis and cirrhosis presenting with severe anemia requiring transfusions, evidence of esophageal varices on CT scan, sepsis secondary to colitis, new ascites/ scrotal/ lower extremity edema PLAN: NEURO: -Pain control, anxiolytics PRN -Nicotine patch for tobacco use disorder, counseled on importance of smoking cessation CARDIO: -EKG and monitor -History of A fib of uncertain etiology, not on home meds for rate control or anticoagulation, currently in sinus RESP: -Incentive spirometry GI: -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, MELD score 10 -Case discussed with Dr. Sanchez of GI this morning; patient to go for upper endoscopy this morning -Continue protonix gtt -NPO, IVF -Ammonia 60, no encephalopathy, may need to be started on lactulose/ rifaximin if this trends up, will check another level tomorrow AM -No evidence of Budd Chiari or portal venous thrombus on liver US -Consider IR paracentesis (see below) : -Patient is able to use a urinal for accurate Is/Os F/E/N- -NPO -Maintenance fluids -Electrolyte repletion protocol (in the setting of history of A fib and GI bleed , keep K+ >4.0 and Mg++ >2.0) ID- -Sepsis- source appears to be colitis, although cannot entirely exclude SBP. Patient has no guarding or rebound on exam. I spoke with pharmacy, cefotaxime is not on formularly, will continue with zosyn for now. -Bedside US performed in ED prior to transfer showed no ascitic pocket large enough for safe bedside drainage. The higher priority now is for endoscopy, but may consult IR for paracentesis (non-emergently) -Follow up blood cultures from yesterday -Lactic acid cleared, no longer trending HEME- -s/p 4U PRBCs, Hg improved from 4.8 to 7.8; keep 2U PRBCs on hold in blood bank -Platelets 80K, will give 1U platelets to keep >100K in the setting of ongoing blood loss and need for invasive procedures -INR 1.4, likely due to liver cirrhosis -Hold all anticoagulants/ antiplatelets for now as patient is at very high risk for hemorrhage PROPH- -SCDs only -Protonix bolus/drip Counseling/ Coordination of Care: Total critical care time: 62 minutes. This includes accepting the patient for transfer from a different facility, examining the patient, gathering history from someone other than the patient (i.e., chart review), discussing the patient 's care with other providers (GI), ordering and interpreting radiology studies, ordering and interpreting laboratory studies, management of life-threatening GI bleed (administration of blood products, protonix bolus/ drip), management of sepsis (fluids, antibiotics), re-evaluation at frequent intervals, and documentation. All critical care time is separate and exclusive of procedures, teaching, and patient/ family updates.
[2018-01-03] MEDS ORDERED: Sodium Chlor 0.9% Inj 250 ML IV.SIG SCH (08:00)
[2018-01-03 08:30] LABS: INR 1.5 Ratio; Prothrombin Time 14.7 sec (9.8-11.6)
[2018-01-03 09:00] LABS: Alanine Aminotransferase 13 U/L (12-78); Albumin 2.1 g/dL (3.4-5.0); Anion Gap 11 meq/L (5-15); Aspartate Aminotransferase 23 U/L (15-37); Blood Urea Nitrogen 9 mg/dL (7-18); Calcium 7.4 mg/dL (8.5-10.1); Carbon Dioxide 24.4 meq/L (21.0-32.0); Chloride 105 meq/L (98-107); Glomerular Filtration Rate Greater Than 89 mL/min (>89); Glucose,Random 80 mg/dL (74-106); Magnesium 2.1 mg/dL (1.5-2.5); Potassium 3.5 meq/L (3.5-5.1); Sodium 140 meq/L (136-145)
[2018-01-03] MEDS ORDERED: Cefotaxime Inj 2,000 MG in Sodium Chloride 0.9% Inj 100 ML IV.SIG SCH (09:00)
[2018-01-03 09:08] LABS: Alkaline Phosphatase 100 U/L (45-117); Total Protein 6.2 g/dL (6.4-8.2)
--- NOTE | 2018-01-03 09:34 | P.CONGI ---
History of Present Illness Consult date: 01/03/18 Chief complaint: Sepsis, collitis, anemia requiring transfusions, History of Present Illness: This is 32y/o male with pmh of cirrhosis, hep-C (s/p unsuccessful tx in the past X 2, not sure what type), hx of alcohol and drug abuse who presents with complaints of abdominal pain, fever, weakness, and swelling in abd, scrotum and feet for more than a week. He also endorses one episode of hematemesis (bright red) a week ago but non after. Denies bloody or black tarry stools. States that he has been having diffused constant abdominal pain. hgb on arrival was 4.8, today this is 7.8 s/p blood transfusion (4 units). low plt count 84, bili mahmood is rising 3.0, LFTs wnl. INR is 1.5, ammonia is 61, high lactic acid. Abdomen/Pelvis CT 01/02/18 Cirrhosis and portal hypertension. Abnormal circumferential bowel wall thickening involving the transverse colon and descending colon characteristic of colitis. Liver Ultrasound 01/02/18 Enlarged echogenic liver consistent with fatty infiltration and/or diffuse hepatocellular disease. Ascites. Hepatopetal flow within the portal vein. Splenomegaly. Gallbladder wall thickening. If there is clinical concern for acute cholecystitis, a hepatobiliary scan may be helpful to confirm cystic duct obstruction. Paracentesis was attempted at bed side but there was no large pockets for safe paracentesis. Pt was started on Protonix drip and Zosyn. Pt hasn't been following with GI provider as an OP, denies ever having EGD/ colonoscopy or previous hx of bleeding. Denies daily alcohol intake, but admits to drinking 2 weeks ago then 4 days ago, a large amount (not able to specify). Denies current drug use. Denies blood thinner. <Prabhakar Ballard - Last Filed: 01/03/18 16:12> Review of Systems All other systems reviewed negative except as stated in HPI <Prabhakar Ballard - Last Filed: 01/03/18 16:12> PMFSH - Medical History Medical History: Medical History (Last Updated 11/15/17 @ 00:57 by Silvina Hare) Afib Hep C w/o coma, chronic Hypertension Liver cirrhosis Substance abuse - Surgical History Surgical History: Surgical History (Last Updated 01/02/18 @ 17:46 by Shanda Vicente DO) No history of previous surgery (Acute) <Adam Sanchez - Last Filed: 01/03/18 10:36> - History History Provided By: Patient - Medical History Medical History: Medical History (Last Reviewed 01/03/18 @ 14:31 by Concha Singh) Afib Hep C w/o coma, chronic Hypertension Liver cirrhosis Substance abuse - Surgical History Surgical History: Surgical History (Last Reviewed 01/03/18 @ 14:31 by Concha Singh) No history of previous surgery (Acute) - Tobacco History Second Hand Smoke Exposure: Yes Tobacco Use In Past 30 Days: Yes (1 ppd) Smoking Status: Heavy tobacco smoker Tobacco Type: Cigarettes - Alcohol History How Often Do You Have a Drink Containing Alcohol: 2 to 4 times a month - Substance Use History Substance History: Past History - Travel History Recent Travel in the [place] Within the Last 8 Weeks: No Recent Travel Out of the Country Within the Last 8 Weeks: No - Immunization History Tetanus Immunization: Unable to Assess Hx Influenza Vaccine This Season: No <Prabhakar Ballard - Last Filed: 01/03/18 16:12> Medications and Allergies Active Medications: Active Medications Chlorhexidine Gluconate (Chlorhexidine 2% Cloth) 3 pack TOPICAL DAILY@0400 PRN PRN Reason: Extra cloth needed Stop: 01/08/18 03:59 Furosemide (Lasix Inj) 40 mg IV.PUSH DAILY [facility] Hydromorphone HCl (Dilaudid Pf Inj) 0.2 mg IV.PUSH Q4H PRN PRN Reason: PAIN SCALE 4 TO 6 MODERATE Hydromorphone HCl (Dilaudid Pf Inj) 0.5 mg IV.PUSH Q4H PRN PRN Reason: PAIN SCALE 7 TO 10 SEVERE Last Admin: 01/03/18 08:07 Dose: 0.5 mg Magnesium Sulfate Inj 4 gm/ (Sodium Chloride) 100 mls @ 50 mls/hr IV.SIG UNSCH PRN PRN Reason: For Magnesium 0.9 - 1.1 mg/dL Magnesium Sulfate Inj 2 gm/ (Sodium Chloride) 100 mls @ 50 mls/hr IV.SIG UNSCH PRN PRN Reason: For Magnesium 1.2 - 1.6 mg/dL Potassium Chloride (Kcl 40 Meq Premix Inj) 40 meq in 100 mls @ 25 mls/hr IV.SIG Q2H PRN PRN Reason: For Potassium 2.8 - 3.2 mEq/L Potassium Chloride (Kcl 20 Meq Premix Inj) 20 meq in 100 mls @ 50 mls/hr IV.SIG Q2H PRN PRN Reason: For Potassium 3.3 - 3.5 mEq/L Potassium Chloride (Kcl 20 Meq Premix Inj) 20 meq in 100 mls @ 50 mls/hr IV.SIG Q2H PRN PRN Reason: For Potassium 2.8 - 3.2 mEq/L Sodium Phosphate 30 mmol/ (Sodium Chloride) 260 mls @ 42 mls/hr IV.SIG UNSCH PRN PRN Reason: For Phosphorus < 2.5 mg/dL Potassium Chloride (Kcl 40 Meq Premix Inj) 40 meq in 100 mls @ 25 mls/hr IV.SIG UNSCH PRN PRN Reason: For Potassium 3.3 - 3.5 mEq/L Potassium Phosphate 30 mmol/ (Sodium Chloride) 260 mls @ 42 mls/hr IV.SIG UNSCH PRN PRN Reason: SEE LABEL COMMENTS Pantoprazole Sodium 80 mg/ (Sodium Chloride) 100 mls @ 10 mls/hr IV.CONT Q10H [facility] Last Admin: 01/03/18 08:19 Dose: 10 mls/hr Sodium Chloride (Ns Inj) 250 mls @ 15 mls/hr IV.SIG ONCE NAV[facility] Stop: 01/03/18 10:39 Last Admin: 01/02/18 20:42 Dose: Not Given Lactated Ringer's (Lr 1000 Ml Inj) 1,000 mls @ 84 mls/hr IV.CONT .[id number] [facility]ID Last Admin: 01/03/18 06:26 Dose: 84 mls/hr Sodium Chloride (Ns Inj) 250 mls @ 15 mls/hr IV.SIG ONCE NAVID Stop: 01/04/18 00:39 Piperacillin/Tazobactam/Dextrose (Zosyn 3.375 Gm Premix) 50 mls @ 100 mls/hr IV.SIG Q6HR [facility] Lactulose (Lactulose Liq) 30 ml PO BID [facility] Lorazepam (Ativan Inj) 1 mg IV.PUSH Q4H PRN PRN Reason: ANXIETY Last Admin: 01/03/18 08:08 Dose: 1 mg Magnesium Oxide (Mag-Ox) 800 mg PO UNSCH PRN PRN Reason: For Magnesium 1.2 - 1.6 mg/dL Nicotine (Habitrol 21 Mg Patch.24 Hr) 1 patch T-DERMAL DAILY [facility] Last Admin: 01/03/18 08:09 Dose: 1 patch Ondansetron HCl (Zofran Inj) 4 mg IV.PUSH Q6H PRN PRN Reason: NAUSEA OR VOMITING Patch Removal (Remove Old Patch) 1 each T-DERMAL HS [facility] Last Admin: 01/02/18 20:43 Dose: Not Given Potassium Bicarb/Potassium Chloride (K-Lyte Cl Eff) 50 meq PO UNSCH PRN PRN Reason: For Potassium 3.3 - 3.5 mEq/L Potassium Phosphate (K-Phos Original) 2,000 mg PO Q4H PRN PRN Reason: Phosphorus Less Than 2.5 mg/dL Potassium Phosphate (K-Phos Original) 2,000 mg PO UNSCH PRN PRN Reason: SEE LABEL COMMENTS Sodium Chloride (Ns Flush) 2 ml IV.FLUSH BID [facility] Last Admin: 01/03/18 08:09 Dose: 2 ml Sodium Chloride (Ns Flush) 2 ml IV.FLUSH PRN PRN PRN Reason: FLUSH AFTER USING IV ACCESS Spironolactone (Aldactone) 100 mg PO DAILY [facility] <Adam Sanchez - Last Filed: 01/03/18 10:36> Active Medications: Active Medications Chlorhexidine Gluconate (Chlorhexidine 2% Cloth) 3 pack TOPICAL DAILY@0400 PRN PRN Reason: Extra cloth needed Stop: 01/08/18 03:59 Hydromorphone HCl (Dilaudid Pf Inj) 0.2 mg IV.PUSH Q4H PRN PRN Reason: PAIN SCALE 4 TO 6 MODERATE Hydromorphone HCl (Dilaudid Pf Inj) 0.5 mg IV.PUSH Q4H PRN PRN Reason: PAIN SCALE 7 TO 10 SEVERE Last Admin: 01/03/18 08:07 Dose: 0.5 mg Magnesium Sulfate Inj 4 gm/ (Sodium Chloride) 100 mls @ 50 mls/hr IV.SIG UNSCH PRN PRN Reason: For Magnesium 0.9 - 1.1 mg/dL Magnesium Sulfate Inj 2 gm/ (Sodium Chloride) 100 mls @ 50 mls/hr IV.SIG UNSCH PRN PRN Reason: For Magnesium 1.2 - 1.6 mg/dL Potassium Chloride (Kcl 40 Meq Premix Inj) 40 meq in 100 mls @ 25 mls/hr IV.SIG Q2H PRN PRN Reason: For Potassium 2.8 - 3.2 mEq/L Potassium Chloride (Kcl 20 Meq Premix Inj) 20 meq in 100 mls @ 50 mls/hr IV.SIG Q2H PRN PRN Reason: For Potassium 3.3 - 3.5 mEq/L Potassium Chloride (Kcl 20 Meq Premix Inj) 20 meq in 100 mls @ 50 mls/hr IV.SIG Q2H PRN PRN Reason: For Potassium 2.8 - 3.2 mEq/L Sodium Phosphate 30 mmol/ (Sodium Chloride) 260 mls @ 42 mls/hr IV.SIG UNSCH PRN PRN Reason: For Phosphorus < 2.5 mg/dL Potassium Chloride (Kcl 40 Meq Premix Inj) 40 meq in 100 mls @ 25 mls/hr IV.SIG UNSCH PRN PRN Reason: For Potassium 3.3 - 3.5 mEq/L Potassium Phosphate 30 mmol/ (Sodium Chloride) 260 mls @ 42 mls/hr IV.SIG UNSCH PRN PRN Reason: SEE LABEL COMMENTS Pantoprazole Sodium 80 mg/ (Sodium Chloride) 100 mls @ 10 mls/hr IV.CONT Q10H [facility] Last Admin: 01/03/18 08:19 Dose: 10 mls/hr Sodium Chloride (Ns Inj) 250 mls @ 15 mls/hr IV.SIG ONCE [facility] Stop: 01/03/18 10:39 Last Admin: 01/02/18 20:42 Dose: Not Given Lactated Ringer's (Lr 1000 Ml Inj) 1,000 mls @ 84 mls/hr IV.CONT .[id number] [facility] Last Admin: 01/03/18 06:26 Dose: 84 mls/hr Sodium Chloride (Ns Inj) 250 mls @ 15 mls/hr IV.SIG ONCE [facility] Stop: 01/04/18 00:39 Piperacillin/Tazobactam/Dextrose (Zosyn 3.375 Gm Premix) 50 mls @ 100 mls/hr IV.SIG Q6HR [facility] Lorazepam (Ativan Inj) 1 mg IV.PUSH Q4H PRN PRN Reason: ANXIETY Last Admin: 01/03/18 08:08 Dose: 1 mg Magnesium Oxide (Mag-Ox) 800 mg PO UNSCH PRN PRN Reason: For Magnesium 1.2 - 1.6 mg/dL Nicotine (Habitrol 21 Mg Patch.24 Hr) 1 patch T-DERMAL DAILY [facility] Last Admin: 01/03/18 08:09 Dose: 1 patch Ondansetron HCl (Zofran Inj) 4 mg IV.PUSH Q6H PRN PRN Reason: NAUSEA OR VOMITING Patch Removal (Remove Old Patch) 1 each T-DERMAL HS [facility] Last Admin: 01/02/18 20:43 Dose: Not Given Potassium Bicarb/Potassium Chloride (K-Lyte Cl Eff) 50 meq PO UNSCH PRN PRN Reason: For Potassium 3.3 - 3.5 mEq/L Potassium Phosphate (K-Phos Original) 2,000 mg PO Q4H PRN PRN Reason: Phosphorus Less Than 2.5 mg/dL Potassium Phosphate (K-Phos Original) 2,000 mg PO UNSCH PRN PRN Reason: SEE LABEL COMMENTS Sodium Chloride (Ns Flush) 2 ml IV.FLUSH BID [facility] Last Admin: 01/03/18 08:09 Dose: 2 ml Sodium Chloride (Ns Flush) 2 ml IV.FLUSH PRN PRN PRN Reason: FLUSH AFTER USING IV ACCESS <Prabhakar Ballard - Last Filed: 01/03/18 16:12> Allergies Allergy/AdvReac Type Severity Reaction Status Date / Time codeine Allergy Severe HIVES Verified 01/02/18 12:41 phenytoin Allergy Severe HIVES Verified 01/02/18 12:41 Home Medications Medication Instructions Recorded Confirmed Type No Known Home Medications 01/02/18 01/02/18 History Exam Vital signs: Vital Signs 01/02/18 12:35 01/02/18 12:41 01/02/18 13:29 Temperature 103.2 F H Pulse Rate 119 H 114 H 96 H Respiratory Rate 24 22 Blood Pressure 180/70 H 153/51 H 126/46 L Pulse Oximetry 96 98 01/02/18 15:37 01/02/18 17:00 01/02/18 18:00 Temperature 98.2 F 97.9 F Pulse Rate 72 72 Respiratory Rate 24 26 H Blood Pressure 121/58 L 114/55 L Pulse Oximetry 100 95 94 L 01/02/18 18:26 01/02/18 18:43 01/02/18 19:00 Temperature 98.2 F 97.9 F Pulse Rate 75 75 73 Respiratory Rate 19 18 21 Blood Pressure 114/55 L 113/52 L 113/52 L Pulse Oximetry 94 L 100 97 01/02/18 20:00 01/02/18 20:32 01/02/18 21:00 Temperature 97.8 F Pulse Rate 69 81 79 Respiratory Rate 17 23 23 Blood Pressure 112/54 L 112/54 L 115/56 L Pulse Oximetry 100 100 100 01/02/18 22:00 01/02/18 22:49 01/02/18 23:00 Temperature 97.8 F Pulse Rate 78 71 78 Respiratory Rate 29 H 24 19 Blood Pressure 104/59 L 104/59 L 121/59 L Pulse Oximetry 100 100 100 01/03/18 00:00 01/03/18 01:00 01/03/18 02:00 Temperature Pulse Rate 72 69 68 Respiratory Rate 22 23 23 Blood Pressure 105/53 L 104/53 L 107/52 L Pulse Oximetry 99 100 99 01/03/18 03:00 01/03/18 04:00 01/03/18 04:25 Temperature 98.1 F Pulse Rate 69 86 69 Respiratory Rate 22 29 H 24 Blood Pressure 117/57 L 124/56 L 104/53 L Pulse Oximetry 99 100 100 01/03/18 05:00 01/03/18 06:00 01/03/18 07:00 Temperature 99.2 F Pulse Rate 73 80 78 Respiratory Rate 15 18 32 H Blood Pressure 127/63 135/68 138/63 Pulse Oximetry 99 100 97 01/03/18 07:36 01/03/18 08:00 01/03/18 08:37 Temperature 99 F Pulse Rate 93 H Respiratory Rate 34 H 24 Blood Pressure 128/59 L Pulse Oximetry 97 97 01/03/18 09:30 01/03/18 09:45 01/03/18 09:50 Temperature 99 F 98.9 F 99 F Pulse Rate 82 80 86 Respiratory Rate 27 H 28 H 21 Blood Pressure 128/59 L 122/56 L 128/59 L Pulse Oximetry 98 98 98 Intake & Output 01/02/18 01/03/18 01/03/18 18:59 06:59 18:59 Intake Total 100 / 100 2735 / 2735 200 / 200 Output Total 2650 / 2650 Balance 100 / 100 85 / 85 200 / 200 Weight 100 kg Intake: IV 100 / 100 1135 / 1135 200 / 200 LR 1000 mL Inj 1,000 ML @ 84 1000 / 1000 mls/hr IV.CONT .[id number] [facility] Rx# :[id number] Protonix Inj 80 MG In NS Inj 200 / 200 100 ML @ 10 mls/hr IV.CONT Q10H [facility] Rx#:[id number] Protonix Inj 80 MG In NS Inj 35 35 / 35 ML @ 420 mls/hr IV.SIG BOLUS ONE Rx#:[id number] Zosyn 3.375 GM Premix 50 ML @ 100 / 100 100 mls/hr IV.SIG Q6H [facility] Rx#: [id number] Zosyn 4.5 GM Premix 4.5 gm In 100 / 100 100 ml @ 200 mls/hr IV.SIG ONCE ONE Rx#:[id number] Oral 0 / 0 Intake (Blood Product) Amt 0 / 0 1600 / 1600 0 / 0 Plt Pheresis B Leukoreduced 0 / 0 Unit [id number] Rbc As-3 Leukoreduced Unit 400 / 400 [id number] Rbc As-3 Leukoreduced Unit 400 / 400 [id number] Rbc As-3 Leukoreduced Unit 0 / 0 400 / 400 [id number] Rbc As-3 Leukoreduced Unit 400 / 400 [id number] Output: Urine 2650 / 2650 Other: Date of Last Bowel Movement 01/01/18 01/01/18 01/01/18 <Adam Sanchez A - Last Filed: 01/03/18 10:36> Vital signs: Vital Signs 01/02/18 12:35 01/02/18 12:41 01/02/18 13:29 Temperature 103.2 F H Pulse Rate 119 H 114 H 96 H Respiratory Rate 24 22 Blood Pressure 180/70 H 153/51 H 126/46 L Pulse Oximetry 96 98 01/02/18 15:37 01/02/18 17:00 01/02/18 18:00 Temperature 98.2 F 97.9 F Pulse Rate 72 72 Respiratory Rate 24 26 H Blood Pressure 121/58 L 114/55 L Pulse Oximetry 100 95 94 L 01/02/18 18:26 01/02/18 18:43 01/02/18 19:00 Temperature 98.2 F 97.9 F Pulse Rate 75 75 73 Respiratory Rate 19 18 21 Blood Pressure 114/55 L 113/52 L 113/52 L Pulse Oximetry 94 L 100 97 01/02/18 20:00 01/02/18 20:32 01/02/18 21:00 Temperature 97.8 F Pulse Rate 69 81 79 Respiratory Rate 17 23 23 Blood Pressure 112/54 L 112/54 L 115/56 L Pulse Oximetry 100 100 100 01/02/18 22:00 01/02/18 22:49 01/02/18 23:00 Temperature 97.8 F Pulse Rate 78 71 78 Respiratory Rate 29 H 24 19 Blood Pressure 104/59 L 104/59 L 121/59 L Pulse Oximetry 100 100 100 01/03/18 00:00 01/03/18 01:00 01/03/18 02:00 Temperature Pulse Rate 72 69 68 Respiratory Rate 22 23 23 Blood Pressure 105/53 L 104/53 L 107/52 L Pulse Oximetry 99 100 99 01/03/18 03:00 01/03/18 04:00 01/03/18 04:25 Temperature 98.1 F Pulse Rate 69 86 69 Respiratory Rate 22 29 H 24 Blood Pressure 117/57 L 124/56 L 104/53 L Pulse Oximetry 99 100 100 01/03/18 05:00 01/03/18 06:00 01/03/18 07:36 Temperature Pulse Rate 73 80 Respiratory Rate 15 18 Blood Pressure 127/63 135/68 Pulse Oximetry 99 100 97 Intake & Output 01/02/18 01/03/18 01/03/18 18:59 06:59 18:59 Intake Total 100 / 100 2735 / 2735 200 / 200 Output Total 2650 / 2650 Balance 100 / 100 85 / 85 200 / 200 Weight 100 kg Intake: IV 100 / 100 1135 / 1135 200 / 200 LR 1000 mL Inj 1,000 ML @ 84 1000 / 1000 mls/hr IV.CONT .[id number] [facility] Rx# :[id number] Protonix Inj 80 MG In NS Inj 200 / 200 100 ML @ 10 mls/hr IV.CONT Q10H [facility] Rx#:[id number] Protonix Inj 80 MG In NS Inj 35 35 / 35 ML @ 420 mls/hr IV.SIG BOLUS ONE Rx#:[id number] Zosyn 3.375 GM Premix 50 ML @ 100 / 100 100 mls/hr IV.SIG Q6H [facility] Rx#: [id number] Zosyn 4.5 GM Premix 4.5 gm In 100 / 100 100 ml @ 200 mls/hr IV.SIG ONCE ONE Rx#:[id number] Oral 0 / 0 Intake (Blood Product) Amt 0 / 0 1600 / 1600 Rbc As-3 Leukoreduced Unit 400 / 400 [id number] Rbc As-3 Leukoreduced Unit 400 / 400 [id number] Rbc As-3 Leukoreduced Unit 0 / 0 400 / 400 [id number] Rbc As-3 Leukoreduced Unit 400 / 400 [id number] Output: Urine 2650 / 2650 Other: Date of Last Bowel Movement 01/01/18 01/01/18 - Constitutional no acute distress - Routine HEENT Exam Head: Present: normocephalic - Routine Respiratory Exam Present: CTA bilaterally - Routine Cardiovascular Exam Present: RRR - Routine Abdominal Exam Present: soft, normoactive bowel sounds, distended, organomegaly Comments: Ascites - Routine Extremities Exam Present: edema - Routine Skin Exam Present: intact, dry Comments: tattoos - Routine Neurological Exam Present: alert, oriented X3 <Prabhakar Ballard - Last Filed: 01/03/18 16:12> Results - Labs CBC & Chem 7: 01/03/18 06:30 01/03/18 07:55 Labs: Laboratory Results - last 24 hr 01/02/18 01/02/18 01/02/18 12:58 13:01 13:07 CBC w Diff WBC RBC Hgb Hct MCV MCH MCHC RDW Plt Count MPV Prelim Diff (Auto) Neut % (Auto) Lymph % (Auto) [place] % (Auto) Eos % (Auto) Baso % (Auto) Neut # (Auto) Lymph # (Auto) [place] # (Auto) Eos # (Auto) Baso # (Auto) WBC Differential Diff Scan Seg Neuts % (Manual) Band Neuts % (Manual) Lymphocytes % (Manual) Monocytes % (Manual) Metamyelocytes % (Man) Abs Neuts (Manual) Differential Comment Platelet Estimate Platelet Morphology Target Cells Ovalocytes PT INR APTT Puncture Site Right radial Patient Temperature 98.6 O2 Saturation 94 ABG pH 7.54 H* ABG pCO2 27 L ABG pO2 78 ABG HCO3 23 ABG O2 Content 6.8 L ABG Base Excess 0.1 ABG Methemoglobin 1.5 Eric Test Present Hemoglobin 5.1 L* Carboxyhemoglobin 3.4 O2 Delivery Device Nasal cannula Liter Flow 2.00 Inspired O2 21 Critical Value Yes Sodium Potassium Chloride Carbon Dioxide Anion Gap BUN Creatinine Estimated GFR POC Glucose 141 H Random Glucose Lactic Acid Cancelled Calcium Prot Corrected Calcium Phosphorus Magnesium Total Bilirubin AST ALT Alkaline Phosphatase Ammonia Total Creatine Kinase Troponin I Total Protein Albumin Lipase Urine Color Urine Clarity Urine pH Ur Specific [place] Urine Protein Urine Glucose (UA) Urine Ketones Urine Occult Blood Urine Nitrate Urine Bilirubin Urine Urobilinogen Ur Leukocyte Esterase Urine RBC Urine WBC Ur Squamous Epith Cells Urine Mucus Micro UA Comment Ur Microscopic Review Urine Culture Comments Nasal Screen MRSA (PCR) Urine Opiates Screen Ur Barbiturates Screen Ur Amphetamines Screen U Benzodiazepines Scrn Urine Cocaine Screen U Cannabinoids Screen Blood Type Antibody Screen MTS Gel Crossmatch Bld Prod Order Comment 01/02/18 01/02/18 01/02/18 13:07 13:10 13:10 CBC w Diff WBC RBC Hgb Hct MCV MCH MCHC RDW Plt Count MPV Prelim Diff (Auto) Neut % (Auto) Lymph % (Auto) Crow[place] % (Auto) Eos % (Auto) Baso % (Auto) Neut # (Auto) Lymph # (Auto) [place] # (Auto) Eos # (Auto) Baso # (Auto) WBC Differential Diff Scan Seg Neuts % (Manual) Band Neuts % (Manual) Lymphocytes % (Manual) Monocytes % (Manual) Metamyelocytes % (Man) Abs Neuts (Manual) Differential Comment Platelet Estimate Platelet Morphology Target Cells Ovalocytes PT INR APTT Puncture Site Patient Temperature O2 Saturation ABG pH ABG pCO2 ABG pO2 ABG HCO3 ABG O2 Content ABG Base Excess ABG Methemoglobin Eric Test Hemoglobin Carboxyhemoglobin O2 Delivery Device Liter Flow Inspired O2 Critical Value Sodium Potassium Chloride Carbon Dioxide Anion Gap BUN Creatinine Estimated GFR POC Glucose Random Glucose Lactic Acid 3.3 H Calcium Prot Corrected Calcium Phosphorus Magnesium Total Bilirubin AST ALT Alkaline Phosphatase Ammonia Total Creatine Kinase Troponin I Total Protein Albumin Lipase Urine Color Urine Clarity Urine pH Ur Specific [place] Urine Protein Urine Glucose (UA) Urine Ketones Urine Occult Blood Urine Nitrate Urine Bilirubin Urine Urobilinogen Ur Leukocyte Esterase Urine RBC Urine WBC Ur Squamous Epith Cells Urine Mucus Micro UA Comment Ur Microscopic Review Urine Culture Comments Nasal Screen MRSA (PCR) Urine Opiates Screen Ur Barbiturates Screen Ur Amphetamines Screen U Benzodiazepines Scrn Urine Cocaine Screen U Cannabinoids Screen Blood Type A Negative Antibody Screen Negative MTS Gel Crossmatch See Detail Bld Prod Order Comment 01/02/18 01/02/18 01/02/18 13:10 13:18 13:18 CBC w Diff Slide review pending WBC 8.2 RBC 2.07 L Hgb 4.8 L* Hct 15.0 L* MCV 72.5 L MCH 23.3 L MCHC 32.1 RDW 18.1 H Plt Count 105 L MPV 8.9 Prelim Diff (Auto) Neut % (Auto) 90.7 H Lymph % (Auto) 4.1 L Crowley % (Auto) 4.8 Eos % (Auto) 0.0 Baso % (Auto) 0.4 Neut # (Auto) 7.5 Lymph # (Auto) 0.3 L Crowley # (Auto) 0.4 Eos # (Auto) 0.0 Baso # (Auto) 0.0 WBC Differential . Diff Scan Auto diff confirmed Seg Neuts % (Manual) Band Neuts % (Manual) Lymphocytes % (Manual) Monocytes % (Manual) Metamyelocytes % (Man) Abs Neuts (Manual) Differential Comment . Platelet Estimate Low L Platelet Morphology Normal Target Cells Ovalocytes 1+ H PT 13.9 H INR 1.4 APTT 23.6 L Puncture Site Patient Temperature O2 Saturation ABG pH ABG pCO2 ABG pO2 ABG HCO3 ABG O2 Content ABG Base Excess ABG Methemoglobin Eric Test Hemoglobin Carboxyhemoglobin O2 Delivery Device Liter Flow Inspired O2 Critical Value Sodium Potassium Chloride Carbon Dioxide Anion Gap BUN Creatinine Estimated GFR POC Glucose Random Glucose Lactic Acid Calcium Prot Corrected Calcium Phosphorus Magnesium Total Bilirubin AST ALT Alkaline Phosphatase Ammonia Total Creatine Kinase Troponin I Total Protein Albumin Lipase Urine Color Urine Clarity Urine pH Ur Specific [place] Urine Protein Urine Glucose (UA) Urine Ketones Urine Occult Blood Urine Nitrate Urine Bilirubin Urine Urobilinogen Ur Leukocyte Esterase Urine RBC Urine WBC Ur Squamous Epith Cells Urine Mucus Micro UA Comment Ur Microscopic Review Urine Culture Comments Nasal Screen MRSA (PCR) Urine Opiates Screen Ur Barbiturates Screen Ur Amphetamines Screen U Benzodiazepines Scrn Urine Cocaine Screen U Cannabinoids Screen Blood Type Antibody Screen MTS Gel Crossmatch See Detail Bld Prod Order Comment 09/09/1401/02/18 01/02/18 13:18 15:28 17:30 CBC w Diff WBC RBC Hgb Hct MCV MCH MCHC RDW Plt Count MPV Prelim Diff (Auto) Neut % (Auto) Lymph % (Auto) Crow[place] % (Auto) Eos % (Auto) Baso % (Auto) Neut # (Auto) Lymph # (Auto) [place] # (Auto) Eos # (Auto) Baso # (Auto) WBC Differential Diff Scan Seg Neuts % (Manual) Band Neuts % (Manual) Lymphocytes % (Manual) Monocytes % (Manual) Metamyelocytes % (Man) Abs Neuts (Manual) Differential Comment Platelet Estimate Platelet Morphology Target Cells Ovalocytes PT INR APTT Puncture Site Patient Temperature O2 Saturation ABG pH ABG pCO2 ABG pO2 ABG HCO3 ABG O2 Content ABG Base Excess ABG Methemoglobin Eric Test Hemoglobin Carboxyhemoglobin O2 Delivery Device Liter Flow Inspired O2 Critical Value Sodium 136 Potassium 3.9 Chloride 102 Carbon Dioxide 23.9 Anion Gap 10 BUN 8 Creatinine 0.81 Estimated GFR Greater than 89 POC Glucose Random Glucose 121 H Lactic Acid 1.8 Calcium 7.2 L* Prot Corrected Calcium 7.6 L Phosphorus 1.8 L Magnesium 1.7 Total Bilirubin 1.0 AST 19 ALT 16 Alkaline Phosphatase 108 Ammonia Total Creatine Kinase 45 Troponin I 0.04 Total Protein 6.3 L Albumin 2.2 L Lipase 84 Urine Color Yellow Urine Clarity Clear Urine pH 7.0 Ur Specific [place] 1.035 Urine Protein Negative Urine Glucose (UA) Negative Urine Ketones Negative Urine Occult Blood Negative Urine Nitrate Negative Urine Bilirubin Negative Urine Urobilinogen 2.0 H Ur Leukocyte Esterase Negative Urine RBC Less than 1 Urine WBC 1 Ur Squamous Epith Cells <1 Urine Mucus Few H Micro UA Comment Culture not ind Ur Microscopic Review Not Reportable Urine Culture Comments Culture not ind Nasal Screen MRSA (PCR) Urine Opiates Screen Ur Barbiturates Screen Ur Amphetamines Screen U Benzodiazepines Scrn Urine Cocaine Screen U Cannabinoids Screen Blood Type Antibody Screen MTS Gel Crossmatch Bld Prod Order Comment 01/02/18 01/02/18 01/02/18 17:30 17:35 18:00 CBC w Diff WBC 9.4 RBC 1.90 L Hgb 4.4 L* Hct 13.9 L* MCV 73.3 L MCH 22.9 L MCHC 31.2 L RDW 19.0 H Plt Count 83 L MPV 8.6 Prelim Diff (Auto) Slide review pending Neut % (Auto) 86.6 H Lymph % (Auto) 6.0 L Crowley % (Auto) 7.3 Eos % (Auto) 0.0 Baso % (Auto) 0.1 Neut # (Auto) 8.1 H Lymph # (Auto) 0.6 L [place] # (Auto) 0.7 Eos # (Auto) 0.0 Baso # (Auto) 0.0 WBC Differential Manual diff final Diff Scan Seg Neuts % (Manual) 59 Band Neuts % (Manual) 34 H Lymphocytes % (Manual) 3 L Monocytes % (Manual) 2 Metamyelocytes % (Man) 2 H Abs Neuts (Manual) 8.9 H Differential Comment . Platelet Estimate Low L Platelet Morphology Enlarged H Target Cells 1+ H Ovalocytes 1+ H PT INR APTT Puncture Site Patient Temperature O2 Saturation ABG pH ABG pCO2 ABG pO2 ABG HCO3 ABG O2 Content ABG Base Excess ABG Methemoglobin Eric Test Hemoglobin Carboxyhemoglobin O2 Delivery Device Liter Flow Inspired O2 Critical Value Sodium Potassium Chloride Carbon Dioxide Anion Gap BUN Creatinine Estimated GFR POC Glucose Random Glucose Lactic Acid Calcium Prot Corrected Calcium Phosphorus Magnesium Total Bilirubin AST ALT Alkaline Phosphatase Ammonia Total Creatine Kinase Troponin I Total Protein Albumin Lipase Urine Color Urine Clarity Urine pH Ur Specific [place] Urine Protein Urine Glucose (UA) Urine Ketones Urine Occult Blood Urine Nitrate Urine Bilirubin Urine Urobilinogen Ur Leukocyte Esterase Urine RBC Urine WBC Ur Squamous Epith Cells Urine Mucus Micro UA Comment Ur Microscopic Review Urine Culture Comments Nasal Screen MRSA (PCR) Not detected Urine Opiates Screen Neg Ur Barbiturates Screen Neg Ur Amphetamines Screen Neg U Benzodiazepines Scrn Pos H Urine Cocaine Screen Neg U Cannabinoids Screen Neg Blood Type Antibody Screen MTS Gel Crossmatch Bld Prod Order Comment 01/02/18 01/03/18 01/03/18 18:00 00:23 06:30 CBC w Diff WBC 8.0 RBC 3.04 L Hgb 7.8 L D Hct 23.5 L MCV 77.4 L D MCH 25.8 L MCHC 33.4 RDW 19.2 H Plt Count 84 L MPV 8.8 Prelim Diff (Auto) Slide review pending Neut % (Auto) 80.2 H Lymph % (Auto) 9.7 Crowley % (Auto) 9.5 H Eos % (Auto) 0.1 Baso % (Auto) 0.5 Neut # (Auto) 6.4 Lymph # (Auto) 0.8 L Crowley # (Auto) 0.8 Eos # (Auto) 0.0 Baso # (Auto) 0.0 WBC Differential . Diff Scan Auto diff confirmed Seg Neuts % (Manual) Band Neuts % (Manual) Lymphocytes % (Manual) Monocytes % (Manual) Metamyelocytes % (Man) Abs Neuts (Manual) Differential Comment . Platelet Estimate Platelet Morphology Target Cells Ovalocytes PT INR APTT Puncture Site Patient Temperature O2 Saturation ABG pH ABG pCO2 ABG pO2 ABG HCO3 ABG O2 Content ABG Base Excess ABG Methemoglobin Eric Test Hemoglobin Carboxyhemoglobin O2 Delivery Device Liter Flow Inspired O2 Critical Value Sodium 137 Potassium 4.0 Chloride 102 Carbon Dioxide 24.9 Anion Gap 10 BUN 10 Creatinine 0.87 Estimated GFR Greater than 89 POC Glucose Random Glucose 100 Lactic Acid Calcium 7.3 L* Prot Corrected Calcium 8.0 L Phosphorus Magnesium Total Bilirubin AST ALT Alkaline Phosphatase Ammonia 61 H Total Creatine Kinase Troponin I Total Protein 5.8 L Albumin Lipase Urine Color Urine Clarity Urine pH Ur Specific [place] Urine Protein Urine Glucose (UA) Urine Ketones Urine Occult Blood Urine Nitrate Urine Bilirubin Urine Urobilinogen Ur Leukocyte Esterase Urine RBC Urine WBC Ur Squamous Epith Cells Urine Mucus Micro UA Comment Ur Microscopic Review Urine Culture Comments Nasal Screen MRSA (PCR) Urine Opiates Screen Ur Barbiturates Screen Ur Amphetamines Screen U Benzodiazepines Scrn Urine Cocaine Screen U Cannabinoids Screen Blood Type Antibody Screen MTS Gel Crossmatch Bld Prod Order Comment 01/03/18 01/03/18 01/03/18 07:30 07:30 07:55 CBC w Diff WBC RBC Hgb Hct MCV MCH MCHC RDW Plt Count MPV Prelim Diff (Auto) Neut % (Auto) Lymph % (Auto) Crow[place] % (Auto) Eos % (Auto) Baso % (Auto) Neut # (Auto) Lymph # (Auto) [place] # (Auto) Eos # (Auto) Baso # (Auto) WBC Differential Diff Scan Seg Neuts % (Manual) Band Neuts % (Manual) Lymphocytes % (Manual) Monocytes % (Manual) Metamyelocytes % (Man) Abs Neuts (Manual) Differential Comment Platelet Estimate Platelet Morphology Target Cells Ovalocytes PT 14.7 H INR 1.5 APTT Puncture Site Patient Temperature O2 Saturation ABG pH ABG pCO2 ABG pO2 ABG HCO3 ABG O2 Content ABG Base Excess ABG Methemoglobin Eric Test Hemoglobin Carboxyhemoglobin O2 Delivery Device Liter Flow Inspired O2 Critical Value Sodium Potassium Chloride Carbon Dioxide Anion Gap BUN Creatinine Estimated GFR POC Glucose Random Glucose Lactic Acid Calcium Prot Corrected Calcium Phosphorus Magnesium Total Bilirubin AST ALT Alkaline Phosphatase Ammonia Total Creatine Kinase Troponin I Total Protein Albumin Lipase Urine Color Urine Clarity Urine pH Ur Specific [place] Urine Protein Urine Glucose (UA) Urine Ketones Urine Occult Blood Urine Nitrate Urine Bilirubin Urine Urobilinogen Ur Leukocyte Esterase Urine RBC Urine WBC Ur Squamous Epith Cells Urine Mucus Micro UA Comment Ur Microscopic Review Urine Culture Comments Nasal Screen MRSA (PCR) Urine Opiates Screen Ur Barbiturates Screen Ur Amphetamines Screen U Benzodiazepines Scrn Urine Cocaine Screen U Cannabinoids Screen Blood Type Antibody Screen MTS Gel Crossmatch See Detail Bld Prod Order Comment 01/03/18 07:55 CBC w Diff WBC RBC Hgb Hct MCV MCH MCHC RDW Plt Count MPV Prelim Diff (Auto) Neut % (Auto) Lymph % (Auto) Crow[place] % (Auto) Eos % (Auto) Baso % (Auto) Neut # (Auto) Lymph # (Auto) [place] # (Auto) Eos # (Auto) Baso # (Auto) WBC Differential Diff Scan Seg Neuts % (Manual) Band Neuts % (Manual) Lymphocytes % (Manual) Monocytes % (Manual) Metamyelocytes % (Man) Abs Neuts (Manual) Differential Comment Platelet Estimate Platelet Morphology Target Cells Ovalocytes PT INR APTT Puncture Site Patient Temperature O2 Saturation ABG pH ABG pCO2 ABG pO2 ABG HCO3 ABG O2 Content ABG Base Excess ABG Methemoglobin Eric Test Hemoglobin Carboxyhemoglobin O2 Delivery Device Liter Flow Inspired O2 Critical Value Sodium 140 Potassium 3.5 Chloride 105 Carbon Dioxide 24.4 Anion Gap 11 BUN 9 Creatinine 0.64 Estimated GFR Greater than 89 POC Glucose Random Glucose 80 Lactic Acid Calcium 7.4 L* Prot Corrected Calcium 7.9 L Phosphorus 3.0 D Magnesium 2.1 Total Bilirubin 3.0 H AST 23 ALT 13 Alkaline Phosphatase 100 Ammonia Total Creatine Kinase Troponin I Total Protein 6.2 L Albumin 2.1 L Lipase Urine Color Urine Clarity Urine pH Ur Specific [place] Urine Protein Urine Glucose (UA) Urine Ketones Urine Occult Blood Urine Nitrate Urine Bilirubin Urine Urobilinogen Ur Leukocyte Esterase Urine RBC Urine WBC Ur Squamous Epith Cells Urine Mucus Micro UA Comment Ur Microscopic Review Urine Culture Comments Nasal Screen MRSA (PCR) Urine Opiates Screen Ur Barbiturates Screen Ur Amphetamines Screen U Benzodiazepines Scrn Urine Cocaine Screen U Cannabinoids Screen Blood Type Antibody Screen MTS Gel Crossmatch Bld Prod Order Comment - Imaging Impressions Chest X-Ray 01/02/18 12:51 CONCLUSION: Negative examination. Abdomen/Pelvis CT 01/02/18 12:58 CONCLUSION: 1. Cirrhosis and portal hypertension. 2. Abnormal circumferential bowel wall thickening involving the transverse colon and descending colon characteristic of colitis. Chest CT 01/02/18 13:39 CONCLUSION: 1. The study is breathing motion degraded. 2. Mild cardiomegaly. 3. Minimal bibasilar atelectasis. 4. Hiatal hernia. Liver Ultrasound 01/02/18 17:29 CONCLUSION: 1. Enlarged echogenic liver consistent with fatty infiltration and/or diffuse hepatocellular disease. 2. Ascites. 3. Hepatopedal flow within the portal vein. 4. Splenomegaly. 5. Gallbladder wall thickening. If there is clinical concern for acute cholecystitis, a hepatobiliary scan may be helpful to confirm cystic duct obstruction. <Adam Sanchez A - Last Filed: 01/03/18 10:36> - Labs CBC & Chem 7: 01/03/18 06:30 01/03/18 07:55 Labs: Laboratory Results - last 24 hr 01/02/18 01/02/18 01/02/18 12:58 13:01 13:07 CBC w Diff WBC RBC Hgb Hct MCV MCH MCHC RDW Plt Count MPV Prelim Diff (Auto) Neut % (Auto) Lymph % (Auto) Crow[place] % (Auto) Eos % (Auto) Baso % (Auto) Neut # (Auto) Lymph # (Auto) [place] # (Auto) Eos # (Auto) Baso # (Auto) WBC Differential Diff Scan Seg Neuts % (Manual) Band Neuts % (Manual) Lymphocytes % (Manual) Monocytes % (Manual) Metamyelocytes % (Man) Abs Neuts (Manual) Differential Comment Platelet Estimate Platelet Morphology Target Cells Ovalocytes PT INR APTT Puncture Site Right radial Patient Temperature 98.6 O2 Saturation 94 ABG pH 7.54 H* ABG pCO2 27 L ABG pO2 78 ABG HCO3 23 ABG O2 Content 6.8 L ABG Base Excess 0.1 ABG Methemoglobin 1.5 Eric Test Present Hemoglobin 5.1 L* Carboxyhemoglobin 3.4 O2 Delivery Device Nasal cannula Liter Flow 2.00 Inspired O2 21 Critical Value Yes Sodium Potassium Chloride Carbon Dioxide Anion Gap BUN Creatinine Estimated GFR POC Glucose 141 H Random Glucose Lactic Acid Cancelled Calcium Prot Corrected Calcium Phosphorus Magnesium Total Bilirubin AST ALT Alkaline Phosphatase Ammonia Total Creatine Kinase Troponin I Total Protein Albumin Lipase Urine Color Urine Clarity Urine pH Ur Specific [place] Urine Protein Urine Glucose (UA) Urine Ketones Urine Occult Blood Urine Nitrate Urine Bilirubin Urine Urobilinogen Ur Leukocyte Esterase Urine RBC Urine WBC Ur Squamous Epith Cells Urine Mucus Micro UA Comment Ur Microscopic Review Urine Culture Comments Nasal Screen MRSA (PCR) Urine Opiates Screen Ur Barbiturates Screen Ur Amphetamines Screen U Benzodiazepines Scrn Urine Cocaine Screen U Cannabinoids Screen Blood Type Antibody Screen MTS Gel Crossmatch Bld Prod Order Comment 01/02/18 01/02/18 01/02/18 13:07 13:10 13:10 CBC w Diff WBC RBC Hgb Hct MCV MCH MCHC RDW Plt Count MPV Prelim Diff (Auto) Neut % (Auto) Lymph % (Auto) [place] % (Auto) Eos % (Auto) Baso % (Auto) Neut # (Auto) Lymph # (Auto) [place] # (Auto) Eos # (Auto) Baso # (Auto) WBC Differential Diff Scan Seg Neuts % (Manual) Band Neuts % (Manual) Lymphocytes % (Manual) Monocytes % (Manual) Metamyelocytes % (Man) Abs Neuts (Manual) Differential Comment Platelet Estimate Platelet Morphology Target Cells Ovalocytes PT INR APTT Puncture Site Patient Temperature O2 Saturation ABG pH ABG pCO2 ABG pO2 ABG HCO3 ABG O2 Content ABG Base Excess ABG Methemoglobin Eric Test Hemoglobin Carboxyhemoglobin O2 Delivery Device Liter Flow Inspired O2 Critical Value Sodium Potassium Chloride Carbon Dioxide Anion Gap BUN Creatinine Estimated GFR POC Glucose Random Glucose Lactic Acid 3.3 H Calcium Prot Corrected Calcium Phosphorus Magnesium Total Bilirubin AST ALT Alkaline Phosphatase Ammonia Total Creatine Kinase Troponin I Total Protein Albumin Lipase Urine Color Urine Clarity Urine pH Ur Specific [place] Urine Protein Urine Glucose (UA) Urine Ketones Urine Occult Blood Urine Nitrate Urine Bilirubin Urine Urobilinogen Ur Leukocyte Esterase Urine RBC Urine WBC Ur Squamous Epith Cells Urine Mucus Micro UA Comment Ur Microscopic Review Urine Culture Comments Nasal Screen MRSA (PCR) Urine Opiates Screen Ur Barbiturates Screen Ur Amphetamines Screen U Benzodiazepines Scrn Urine Cocaine Screen U Cannabinoids Screen Blood Type A Negative Antibody Screen Negative MTS Gel Crossmatch See Detail Bld Prod Order Comment 01/02/18 01/02/18 01/02/18 13:10 13:18 13:18 CBC w Diff Slide review pending WBC 8.2 RBC 2.07 L Hgb 4.8 L* Hct 15.0 L* MCV 72.5 L MCH 23.3 L MCHC 32.1 RDW 18.1 H Plt Count 105 L MPV 8.9 Prelim Diff (Auto) Neut % (Auto) 90.7 H Lymph % (Auto) 4.1 L Crowley % (Auto) 4.8 Eos % (Auto) 0.0 Baso % (Auto) 0.4 Neut # (Auto) 7.5 Lymph # (Auto) 0.3 L [place] # (Auto) 0.4 Eos # (Auto) 0.0 Baso # (Auto) 0.0 WBC Differential . Diff Scan Auto diff confirmed Seg Neuts % (Manual) Band Neuts % (Manual) Lymphocytes % (Manual) Monocytes % (Manual) Metamyelocytes % (Man) Abs Neuts (Manual) Differential Comment . Platelet Estimate Low L Platelet Morphology Normal Target Cells Ovalocytes 1+ H PT 13.9 H INR 1.4 APTT 23.6 L Puncture Site Patient Temperature O2 Saturation ABG pH ABG pCO2 ABG pO2 ABG HCO3 ABG O2 Content ABG Base Excess ABG Methemoglobin Eric Test Hemoglobin Carboxyhemoglobin O2 Delivery Device Liter Flow Inspired O2 Critical Value Sodium Potassium Chloride Carbon Dioxide Anion Gap BUN Creatinine Estimated GFR POC Glucose Random Glucose Lactic Acid Calcium Prot Corrected Calcium Phosphorus Magnesium Total Bilirubin AST ALT Alkaline Phosphatase Ammonia Total Creatine Kinase Troponin I Total Protein Albumin Lipase Urine Color Urine Clarity Urine pH Ur Specific [place] Urine Protein Urine Glucose (UA) Urine Ketones Urine Occult Blood Urine Nitrate Urine Bilirubin Urine Urobilinogen Ur Leukocyte Esterase Urine RBC Urine WBC Ur Squamous Epith Cells Urine Mucus Micro UA Comment Ur Microscopic Review Urine Culture Comments Nasal Screen MRSA (PCR) Urine Opiates Screen Ur Barbiturates Screen Ur Amphetamines Screen U Benzodiazepines Scrn Urine Cocaine Screen U Cannabinoids Screen Blood Type Antibody Screen MTS Gel Crossmatch See Detail Bld Prod Order Comment 01/02/18 01/02/18 01/02/18 13:18 15:28 17:30 CBC w Diff WBC RBC Hgb Hct MCV MCH MCHC RDW Plt Count MPV Prelim Diff (Auto) Neut % (Auto) Lymph % (Auto) Crow[place] % (Auto) Eos % (Auto) Baso % (Auto) Neut # (Auto) Lymph # (Auto) [place] # (Auto) Eos # (Auto) Baso # (Auto) WBC Differential Diff Scan Seg Neuts % (Manual) Band Neuts % (Manual) Lymphocytes % (Manual) Monocytes % (Manual) Metamyelocytes % (Man) Abs Neuts (Manual) Differential Comment Platelet Estimate Platelet Morphology Target Cells Ovalocytes PT INR APTT Puncture Site Patient Temperature O2 Saturation ABG pH ABG pCO2 ABG pO2 ABG HCO3 ABG O2 Content ABG Base Excess ABG Methemoglobin Eric Test Hemoglobin Carboxyhemoglobin O2 Delivery Device Liter Flow Inspired O2 Critical Value Sodium 136 Potassium 3.9 Chloride 102 Carbon Dioxide 23.9 Anion Gap 10 BUN 8 Creatinine 0.81 Estimated GFR Greater than 89 POC Glucose Random Glucose 121 H Lactic Acid 1.8 Calcium 7.2 L* Prot Corrected Calcium 7.6 L Phosphorus 1.8 L Magnesium 1.7 Total Bilirubin 1.0 AST 19 ALT 16 Alkaline Phosphatase 108 Ammonia Total Creatine Kinase 45 Troponin I 0.04 Total Protein 6.3 L Albumin 2.2 L Lipase 84 Urine Color Yellow Urine Clarity Clear Urine pH 7.0 Ur Specific [place] 1.035 Urine Protein Negative Urine Glucose (UA) Negative Urine Ketones Negative Urine Occult Blood Negative Urine Nitrate Negative Urine Bilirubin Negative Urine Urobilinogen 2.0 H Ur Leukocyte Esterase Negative Urine RBC Less than 1 Urine WBC 1 Ur Squamous Epith Cells <1 Urine Mucus Few H Micro UA Comment Culture not ind Ur Microscopic Review Not Reportable Urine Culture Comments Culture not ind Nasal Screen MRSA (PCR) Urine Opiates Screen Ur Barbiturates Screen Ur Amphetamines Screen U Benzodiazepines Scrn Urine Cocaine Screen U Cannabinoids Screen Blood Type Antibody Screen MTS Gel Crossmatch Bld Prod Order Comment 01/02/18 01/02/18 01/02/18 17:30 17:35 18:00 CBC w Diff WBC 9.4 RBC 1.90 L Hgb 4.4 L* Hct 13.9 L* MCV 73.3 L MCH 22.9 L MCHC 31.2 L RDW 19.0 H Plt Count 83 L MPV 8.6 Prelim Diff (Auto) Slide review pending Neut % (Auto) 86.6 H Lymph % (Auto) 6.0 L Crow[place] % (Auto) 7.3 Eos % (Auto) 0.0 Baso % (Auto) 0.1 Neut # (Auto) 8.1 H Lymph # (Auto) 0.6 L [place] # (Auto) 0.7 Eos # (Auto) 0.0 Baso # (Auto) 0.0 WBC Differential Manual diff final Diff Scan Seg Neuts % (Manual) 59 Band Neuts % (Manual) 34 H Lymphocytes % (Manual) 3 L Monocytes % (Manual) 2 Metamyelocytes % (Man) 2 H Abs Neuts (Manual) 8.9 H Differential Comment . Platelet Estimate Low L Platelet Morphology Enlarged H Target Cells 1+ H Ovalocytes 1+ H PT INR APTT Puncture Site Patient Temperature O2 Saturation ABG pH ABG pCO2 ABG pO2 ABG HCO3 ABG O2 Content ABG Base Excess ABG Methemoglobin Eric Test Hemoglobin Carboxyhemoglobin O2 Delivery Device Liter Flow Inspired O2 Critical Value Sodium Potassium Chloride Carbon Dioxide Anion Gap BUN Creatinine Estimated GFR POC Glucose Random Glucose Lactic Acid Calcium Prot Corrected Calcium Phosphorus Magnesium Total Bilirubin AST ALT Alkaline Phosphatase Ammonia Total Creatine Kinase Troponin I Total Protein Albumin Lipase Urine Color Urine Clarity Urine pH Ur Specific [place] Urine Protein Urine Glucose (UA) Urine Ketones Urine Occult Blood Urine Nitrate Urine Bilirubin Urine Urobilinogen Ur Leukocyte Esterase Urine RBC Urine WBC Ur Squamous Epith Cells Urine Mucus Micro UA Comment Ur Microscopic Review Urine Culture Comments Nasal Screen MRSA (PCR) Not detected Urine Opiates Screen Neg Ur Barbiturates Screen Neg Ur Amphetamines Screen Neg U Benzodiazepines Scrn Pos H Urine Cocaine Screen Neg U Cannabinoids Screen Neg Blood Type Antibody Screen MTS Gel Crossmatch Bld Prod Order Comment 01/02/18 01/03/18 01/03/18 18:00 00:23 06:30 CBC w Diff WBC 8.0 RBC 3.04 L Hgb 7.8 L D Hct 23.5 L MCV 77.4 L D MCH 25.8 L MCHC 33.4 RDW 19.2 H Plt Count 84 L MPV 8.8 Prelim Diff (Auto) Slide review pending Neut % (Auto) 80.2 H Lymph % (Auto) 9.7 Crow[place] % (Auto) 9.5 H Eos % (Auto) 0.1 Baso % (Auto) 0.5 Neut # (Auto) 6.4 Lymph # (Auto) 0.8 L [place] # (Auto) 0.8 Eos # (Auto) 0.0 Baso # (Auto) 0.0 WBC Differential . Diff Scan Auto diff confirmed Seg Neuts % (Manual) Band Neuts % (Manual) Lymphocytes % (Manual) Monocytes % (Manual) Metamyelocytes % (Man) Abs Neuts (Manual) Differential Comment . Platelet Estimate Platelet Morphology Target Cells Ovalocytes PT INR APTT Puncture Site Patient Temperature O2 Saturation ABG pH ABG pCO2 ABG pO2 ABG HCO3 ABG O2 Content ABG Base Excess ABG Methemoglobin Eric Test Hemoglobin Carboxyhemoglobin O2 Delivery Device Liter Flow Inspired O2 Critical Value Sodium 137 Potassium 4.0 Chloride 102 Carbon Dioxide 24.9 Anion Gap 10 BUN 10 Creatinine 0.87 Estimated GFR Greater than 89 POC Glucose Random Glucose 100 Lactic Acid Calcium 7.3 L* Prot Corrected Calcium 8.0 L Phosphorus Magnesium Total Bilirubin AST ALT Alkaline Phosphatase Ammonia 61 H Total Creatine Kinase Troponin I Total Protein 5.8 L Albumin Lipase Urine Color Urine Clarity Urine pH Ur Specific [place] Urine Protein Urine Glucose (UA) Urine Ketones Urine Occult Blood Urine Nitrate Urine Bilirubin Urine Urobilinogen Ur Leukocyte Esterase Urine RBC Urine WBC Ur Squamous Epith Cells Urine Mucus Micro UA Comment Ur Microscopic Review Urine Culture Comments Nasal Screen MRSA (PCR) Urine Opiates Screen Ur Barbiturates Screen Ur Amphetamines Screen U Benzodiazepines Scrn Urine Cocaine Screen U Cannabinoids Screen Blood Type Antibody Screen MTS Gel Crossmatch Bld Prod Order Comment 01/03/18 01/03/18 01/03/18 07:30 07:30 07:55 CBC w Diff WBC RBC Hgb Hct MCV MCH MCHC RDW Plt Count MPV Prelim Diff (Auto) Neut % (Auto) Lymph % (Auto) [place] % (Auto) Eos % (Auto) Baso % (Auto) Neut # (Auto) Lymph # (Auto) [place] # (Auto) Eos # (Auto) Baso # (Auto) WBC Differential Diff Scan Seg Neuts % (Manual) Band Neuts % (Manual) Lymphocytes % (Manual) Monocytes % (Manual) Metamyelocytes % (Man) Abs Neuts (Manual) Differential Comment Platelet Estimate Platelet Morphology Target Cells Ovalocytes PT 14.7 H INR 1.5 APTT Puncture Site Patient Temperature O2 Saturation ABG pH ABG pCO2 ABG pO2 ABG HCO3 ABG O2 Content ABG Base Excess ABG Methemoglobin Eric Test Hemoglobin Carboxyhemoglobin O2 Delivery Device Liter Flow Inspired O2 Critical Value Sodium Potassium Chloride Carbon Dioxide Anion Gap BUN Creatinine Estimated GFR POC Glucose Random Glucose Lactic Acid Calcium Prot Corrected Calcium Phosphorus Magnesium Total Bilirubin AST ALT Alkaline Phosphatase Ammonia Total Creatine Kinase Troponin I Total Protein Albumin Lipase Urine Color Urine Clarity Urine pH Ur Specific [place] Urine Protein Urine Glucose (UA) Urine Ketones Urine Occult Blood Urine Nitrate Urine Bilirubin Urine Urobilinogen Ur Leukocyte Esterase Urine RBC Urine WBC Ur Squamous Epith Cells Urine Mucus Micro UA Comment Ur Microscopic Review Urine Culture Comments Nasal Screen MRSA (PCR) Urine Opiates Screen Ur Barbiturates Screen Ur Amphetamines Screen U Benzodiazepines Scrn Urine Cocaine Screen U Cannabinoids Screen Blood Type Antibody Screen MTS Gel Crossmatch See Detail Bld Prod Order Comment - Imaging Impressions Chest X-Ray 01/02/18 12:51 CONCLUSION: Negative examination. Abdomen/Pelvis CT 01/02/18 12:58 CONCLUSION: 1. Cirrhosis and portal hypertension. 2. Abnormal circumferential bowel wall thickening involving the transverse colon and descending colon characteristic of colitis. Chest CT 01/02/18 13:39 CONCLUSION: 1. The study is breathing motion degraded. 2. Mild cardiomegaly. 3. Minimal bibasilar atelectasis. 4. Hiatal hernia. Liver Ultrasound 01/02/18 17:29 CONCLUSION: 1. Enlarged echogenic liver consistent with fatty infiltration and/or diffuse hepatocellular disease. 2. Ascites. 3. Hepatopedal flow within the portal vein. 4. Splenomegaly. 5. Gallbladder wall thickening. If there is clinical concern for acute cholecystitis, a hepatobiliary scan may be helpful to confirm cystic duct obstruction. <Prabhakar Ballard - Last Filed: 01/03/18 16:12> Assessment and Plan - Attending Attestation Seen and examined with hazel Radford as above. Consent obtained for EGD and possible banding. Prognosis discussed with the patient and risk of further decompensation of his liver disease explained, advised to abstain from Alcohol. Further recommendations to follow. Thank you for the consult. <Adam Sanchez - Last Filed: 01/03/18 10:36> - Plan - Hematemesis- likely varices related. one episode of hematemesis (bright red) a week ago but non after. Denies bloody or black tarry stools. States that he has been having diffused constant abdominal pain. hgb on arrival was 4.8, today this is 7.8 s/p blood transfusion (4 units) Pt hasn't been following with GI provider as an OP, denies ever having EGD/ colonoscopy or previous hx of bleeding. Denies daily alcohol intake, but admits to drinking 2 weeks ago then 4 days ago, a large amount (not able to specify). Denies current drug use. Denies blood thinner. Pt was started on Protonix drip - Cirrhosis- MELD score calculated from today labs 15, LFTs wnl. hx of alcohol and hep-C, hasn't been following with GI provider Abdomen/Pelvis CT 01/02/18 Cirrhosis and portal hypertension. Abnormal circumferential bowel wall thickening involving the transverse colon and descending colon characteristic of colitis. Liver Ultrasound 01/02/18 Enlarged echogenic liver consistent with fatty infiltration and/or diffuse hepatocellular disease. Ascites. Hepatopetal flow within the portal vein. Splenomegaly. Gallbladder wall thickening. If there is clinical concern for acute cholecystitis, a hepatobiliary scan may be helpful to confirm cystic duct obstruction. - ? acute alcohol hepatitis- DF is 20, pt cont. to drink but not daily, admits to drinking 4 days ago (large amount) - Ascites- Paracentesis was attempted at bed side but there was no large pockets for safe paracentesis. Zosyn. - High bilirubin- this went up to 3.0 - hep-C (s/p unsuccessful tx in the past X 2, not sure what type)- discuss tx as an OP - Sepsis- ? SBP - Coagulopathy/ thrombocytopenia- Secondary to above - High ammonia- 61 - Colitis on CT- abx, will need colonoscopy at some point Plan: - NPO - EGD/possible banding today - Vit K - cont. monitoring hh and transfuse as needed - Cont. Protonix drip - Alcohol cessation - Monitor labs - Lasix 40 mg - Aldactone 100 mg - Add lactulose - consult IR for paracentesis therapeutic and diagnostic - Cont. Zosyn - Will need colonoscopy at some point but will address upper GI bleed first - Alcohol cessation strongly advised - Supportive care - Pt was seen and examined by Dr. Sanchez and myself and this note is written on his behalf. <Prabhakar Ballard - Last Filed: 01/03/18 16:12>
[2018-01-03] MEDS ORDERED: Phytonadione Inj 10 MG/ML Vial SQ ONE (10:00)
[2018-01-03] MEDS ORDERED: Lidocaine PF 1% Inj 5 ML Syringe INFILTRATN ONE (14:30)
[2018-01-03] MEDS ORDERED: fentaNYL Citrate Inj 100 MCG/2 ML Ampul ONE (15:31)
[2018-01-03] MEDS ORDERED: Morphine Inj 4 MG/ML Vial ONE (15:31)
[2018-01-03] MEDS ORDERED: *morphine SULFATE 4 MG/ML PERIprocedure ONLY ONE (15:35)
[2018-01-03 21:31] LABS: Hematocrit 23.3 % (39.0-51.0); Hemoglobin 7.5 gm/dL (13.0-17.0)
--- NOTE | 2018-01-04 00:38 | ECG ---
Date Performed: 01/02/2018 Time Performed: 19:11:47 PTAGE: 32 years EKG: Sinus rhythm NORMAL ECG PREVIOUS TRACING : 01/02/2018 13.00 Compared to previous tracing, rate has decreased DOCTOR: Jp Aguilar Interpretating Date/Time 01/04/2018 00:36:55
--- NOTE | 2018-01-04 00:49 | ECG ---
Date Performed: 01/02/2018 Time Performed: 13:00:07 PTAGE: 32 years EKG: SINUS TACHYCARDIA ABNORMAL RHYTHM ECG PREVIOUS TRACING : 02/06/2016 06.57 Since the previous tracing, no significant change noted DOCTOR: Jp Aguilar Interpretating Date/Time 01/04/2018 00:48:04
[2018-01-04] MEDS: Piperacil/Tazo 3.375 GM Premix 50 ML IV.SIG SCH ×4 (00:52→18:08)
[2018-01-04] MEDS: HYDROmorphone PF Inj 2 MG/ML Vial IV.PUSH PRN ×2 (04:25→12:05)
[2018-01-04 05:05] LABS: Baso % (Auto) 0.5 % (0.0-2.0); Eos # (Auto) 0.1 th/mm3 (0.0-0.4); Eos % (Auto) 1.8 % (0.0-4.0); Hematocrit 22.8 % (39.0-51.0); Hemoglobin 7.4 gm/dL (13.0-17.0); Lymph # (Auto) 1.2 th/mm3 (1.0-4.8); Lymph % (Auto) 21.2 % (9.0-44.0); Mean Corpuscular HGB Conc 32.5 % (32.0-36.0); Mean Corpuscular Hemoglobin 25.4 pg (27.0-34.0); Mean Corpuscular Volume 78.3 fL (80.0-100.0); Mean Platelet Volume 8.7 fL (7.0-11.0); Mono # (Auto) 0.7 th/mm3 (0.0-0.9); Neut # (Auto) 3.6 th/mm3 (1.8-7.7); Neut % (Auto) 64.5 % (16.0-70.0); Platelet Count 81 th/mm3 (150-450); Red Blood Count 2.92 mil/mm3 (4.50-5.90); Red Cell Distribution Width 20.7 % (11.6-17.2); White Blood Count 5.5 th/mm3 (4.0-11.0)
[2018-01-04 05:16] LABS: INR 1.4 Ratio; Prothrombin Time 14.6 sec (9.8-11.6)
[2018-01-04] MEDS: Pantoprazole Inj 80 MG in Sodium Chlor 0.9% Inj 100 ML IV.CONT SCH (05:23)
[2018-01-04 05:51] LABS: Alanine Aminotransferase 15 U/L (12-78); Alkaline Phosphatase 91 U/L (45-117); Anion Gap 9 meq/L (5-15); Aspartate Aminotransferase 23 U/L (15-37); Blood Urea Nitrogen 9 mg/dL (7-18); Carbon Dioxide 26.1 meq/L (21.0-32.0); Chloride 104 meq/L (98-107); Glomerular Filtration Rate Greater Than 89 mL/min (>89); Glucose,Random 86 mg/dL (74-106); Magnesium 2.2 mg/dL (1.5-2.5); Potassium 3.6 meq/L (3.5-5.1); Sodium 139 meq/L (136-145)
[2018-01-04 06:38] LABS: Lymphocytes 17 % (9-44); Metamyelocytes 1 % (0-1); Monocytes 4 % (0-8)
[2018-01-04 06:39] LABS: Ovalocytes 1+; Platelet Morphology Normal (Normal)
--- NOTE | 2018-01-04 12:22 | P.DIET ---
Nutritional Evaluation Type of nutrition evaluation: initial Nutrition screening: Weight Loss > 10 lbs Objective - Diagnosis Sepsis, Colitis, Anemia requiring transfusions - Objective % IBW: 137 (IBW = 166#) Body Weight Used for Calculations: IBW (75.5 kg) Energy Needs - Lower Range (kCal/kg): 30 Energy Needs - Upper Range (kCal/kg): 35 Lower Limit kCal/kg (kCals): 2,264 Upper Limit kCal/kg (kCals): 2,643 Lower Limit Protein Factor (Grams per Kg): 1.2 Upper Limit Protein Factor (Grams per Kg): 1.5 Lower Protein Needs (Protein): 91 Upper Protein Needs (Protein): 113 Dietitian Reviewed in Medical Record: Current diet, Curent medications, Intake & Output, Labs, Medical history Diet Order: clear liquids Assessment Assessment: Pt at high nutrition risk 2' to dx and reported weight loss. EGD with possible banding planned for today. RD will monitor diet advance, po intake and assess the need for supplements. Recommendations: Will monitor diet advance. RD following Dietitian to Monitor: Lab values, Intake & Output, Diet tolerance, Weight change , PO Intake, Diet advancement, Medical course
[2018-01-04 12:54] LABS: Total Protein,Peritoneal Fluid 1.1 gm/dL
[2018-01-04 13:43] LABS: Mesothelial,Peritoneal Fluid 1 %; Neutrophils,Peritoneal Fluid 7 %
[2018-01-04 13:44] LABS: RBC,Peritoneal Fluid 620 /mm3 (0-0)
--- NOTE | 2018-01-04 13:50 | US ---
EXAM DATE: 01/04/2018 11:43 AM EDT AGE/SEX: 32 years / Male INDICATIONS: Ascites. CLINICAL DATA: This is the patient's subsequent encounter. Patient reports that signs and symptoms h ave been present for 1 day and indicates a pain score of 0/10. MEDICAL/SURGICAL HISTORY: . Afib. Hepatitis C. HTN. Liver cirrhosis. Substance abuse. None . [place] [facility] [place]. . FLUID: Total volume of 2020 cc of clear, yellow fluid was removed. Fluid was sent to lab for ordered studies . . . TECHNIQUE: Ultrasound guidance for abdominal paracentesis. Paracentesis. The risks, benefits, and alternatives to ultrasound guided paracentesis were explained to the patient in detail including the risk of bleeding and infection. Written and verbal informed consent was obt ained. FINDINGS: With the patient on the ultrasound table, ultrasound imaging was used to select the most appropriate approach for paracentesis. No single large pocket could be identified therefore, the largest pocket i n the right lower abdominal quadrant was targeted. Overlying skin was prepped and draped in usual chuckie rile fashion and anesthetized with proximally 5 cc 1% Xylocaine. Using direct ultrasound guidance, a 21-gauge micropuncture needle was advanced into the peritoneal cavity. An 018 wire was advanced throu gh the needle over which a 3 4 dilator was placed. 20 cc of clear straw-colored fluid was immediately withdrawn from the 4 Cymro dilator. The dilator was then connected to Vacutainer suction and additi onal 2000 cc of clear yellow fluid was removed. The patient tolerated the procedure well and left the ultrasound suite in stable condition. CONCLUSION: Ultrasound-guided thoracentesis as above. Electronically signed by: Joaquim Marcum MD 01/04/2018 1:48 PM EDT
--- NOTE | 2018-01-04 14:17 | P.PNCC ---
Subjective Subjective Remarks/Hospital Course: 32yM who presented to [facility] complaining of a week and a half of abdominal pain. He states that he's been having diffuse "aching" abdominal pain which is constant, non-radiating, not made better or worse by anything, moderate to severe intensity, associated with abdominal distension. He says that about a week ago he was "throwing up a lot of bright red blood" but has not had this for the past several days, denies bloody/ black/ tarry stools. He also reports 5-7 days of bilateral lower extremity and scrotal edema. He presented to the ED today because he had tactile fever and "I was so weak I couldn't get out of bed". He has a history of hepatitis C and cirrhosis, A fib of uncertain etiology, and hypertension. He does not take any home meds (specifically denies use of anticoagulants/ antiplatelets). SUBJECTIVE: 01/03: Patient reports nausea and anxiety overnight, reports that he has a history of "panic attacks" and is requesting "something to calm me down". No episodes of hematemesis. Received 4U PRBCs in total overnight. 01/04: Patient went for upper endoscopy yesterday afternoon, found to have esophageal varices that were banded. s/p paracentesis this morning. Started on clear liquids. Objective Vital Signs / I&O: Vital Signs 01/03/18 15:20 01/03/18 15:30 01/03/18 15:40 Temperature 98.8 F Pulse Rate 75 71 Respiratory Rate 18 16 16 Blood Pressure 132/67 134/69 Pulse Oximetry 97 98 01/03/18 15:45 01/03/18 16:00 01/03/18 16:15 Temperature 97.6 F Pulse Rate 74 74 78 Respiratory Rate 16 16 Blood Pressure 138/69 140/78 Pulse Oximetry 99 100 01/03/18 17:00 01/03/18 17:51 01/03/18 18:00 Temperature 97.9 F 98 F Pulse Rate 79 74 Respiratory Rate 24 22 24 Blood Pressure 121/58 L 122/59 L Pulse Oximetry 99 100 01/03/18 18:05 01/03/18 18:10 01/03/18 18:15 Temperature Pulse Rate 79 74 72 Respiratory Rate 23 24 29 H Blood Pressure 129/61 136/65 141/74 H Pulse Oximetry 100 100 100 01/03/18 18:20 01/03/18 18:25 01/03/18 20:00 Temperature 98.1 F Pulse Rate 77 73 80 Respiratory Rate 25 H 29 H 11 L Blood Pressure 142/79 H 141/81 H 142/78 H Pulse Oximetry 100 100 71 L 01/03/18 20:08 01/03/18 22:00 01/03/18 23:00 Temperature Pulse Rate 71 Respiratory Rate 20 Blood Pressure Pulse Oximetry 100 01/04/18 00:00 01/04/18 02:00 01/04/18 04:00 Temperature 97.9 F 98.2 F Pulse Rate 70 71 70 Respiratory Rate 24 25 H Blood Pressure 130/74 115/53 L Pulse Oximetry 100 100 94 L 01/04/18 04:55 01/04/18 06:00 01/04/18 08:00 Temperature Pulse Rate 67 66 Respiratory Rate 20 25 H Blood Pressure Pulse Oximetry 01/04/18 10:00 01/04/18 11:02 01/04/18 12:00 Temperature 99.4 F Pulse Rate 77 76 79 Respiratory Rate 24 22 Blood Pressure 133/70 129/67 Pulse Oximetry 94 L 97 Intake & Output 01/03/18 01/04/18 01/04/18 18:59 06:59 18:59 Intake Total 2009 1730 / 1730 Output Total 1125 / 1125 550 / 550 Balance 885 / 885 1180 / 1180 Weight 103 kg Intake: IV 1350 / 1350 1250 / 1250 LR 1000 mL Inj 1,000 ML @ 84 1000 / 1000 1000 / 1000 mls/hr IV.CONT .[id number] [facility] Rx# :[id number] Protonix Inj 80 MG In NS Inj 300 / 300 100 / 100 100 ML @ 10 mls/hr IV.CONT Q10H [facility] Rx#:[id number] Zosyn 3.375 GM Premix 50 ML @ 50 / 50 150 / 150 100 mls/hr IV.SIG Q6HR [facility] Rx#: [id number] Oral 360 / 360 480 / 480 Anesthesia Amount 300 / 300 Intake (Blood Product) Amt 0 / 0 Plt Pheresis B Leukoreduced 0 / 0 Unit [id number] Output: Urine 1125 / 1125 550 / 550 Other: Date of Last Bowel Movement 01/03/18 01/01/18 01/01/18 Result Diagrams: 01/04/18 04:18 01/04/18 04:18 Objective Remarks: GEN: Appears uncomfortable but no acute distress HEENT: NCAT, PERRL, mucosa dry NECK: Trachea midline CARDIO: Regular rate and rhythm LUNGS: Clear to auscultation bilaterally ABD: Moderately distended, diffuse tenderness, no guarding or rebound EXT: 1-2+ pitting edema to knees bilaterally, trace to 1+ edema to hips bilaterally SKIN: No rashes or lesions NEURO: GCS 15, A&Ox3, speech clear and fluent, no tremor, no focal neuro deficits PSYCH: Appropriate affect Assessment and Plan - Problem List (1) Hematemesis Code(s): K92.0 - Hematemesis Status: Acute (2) Anemia requiring transfusions Code(s): D64.9 - Anemia, unspecified Status: Acute (3) GI bleed Code(s): K92.2 - Gastrointestinal hemorrhage, unspecified Status: Acute (4) Esophageal varices in cirrhosis Code(s): K74.60 - Unspecified cirrhosis of liver; I85.10 - Secondary esophageal varices without bleeding Status: Acute (5) Ascites of liver Code(s): R18.8 - Other ascites Status: Acute (6) Colitis Code(s): K52.9 - Noninfective gastroenteritis and colitis, unspecified Status : Acute (7) Sepsis Code(s): A41.9 - Sepsis, unspecified organism Status: Acute (8) Tobacco use disorder Code(s): F17.200 - Nicotine dependence, unspecified, uncomplicated Status: Acute - Assessment and Plan Plan: IMPRESSION: 32yM with history of hepatitis and cirrhosis presenting with severe anemia requiring transfusions, evidence of esophageal varices on CT scan, sepsis secondary to colitis, new ascites/ scrotal/ lower extremity edema PLAN: NEURO: -Pain control, anxiolytics PRN-- change both from IV to PO -Nicotine patch for tobacco use disorder, counseled on importance of smoking cessation CARDIO: -Hemodynamically stable, no active issues RESP: -Incentive spirometry GI: -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, 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 -s/p upper endoscopy and variceal banding -Change protonix gtt to BID dosing -Clear liquid diet, advance to fulls -Continue lactulose, currently no encephalopathy -No evidence of Budd Chiari or portal venous thrombus on liver US -s/p IR paracentesis, no evidence of SBP, 2L drained : -Patient is able to use a urinal for accurate Is/Os F/E/N- -Full liquid diet, d/c IV fluids -Electrolyte repletion protocol -Continue lasix and spironolactone ID- -Sepsis secondary to colitis- no longer meets sepsis criteria- continue zosyn -Gram negative bacteremia, on zosyn HEME- -Hg stable at 7.4, no active bleeding at present -Platelets stable around 80K -INR 1.4, given vit K yesterday PROPH- -SCDs only, ambulate as tolerated, does not need chemical prophylaxis (Caprini VTE 1) -Protonix Patient can be transitioned out of C to hospitalist service Counseling/ Coordination of Care: Total critical care time: 55 minutes. This includes examining the patient, gathering history from someone other than the patient (i.e., chart review), discussing the patient's care with other providers (GI), ordering and interpreting laboratory studies, re-evaluation at frequent intervals, and documentation. All critical care time is separate and exclusive of procedures, teaching, and patient/ family updates. Code Status: Full
[2018-01-04] MEDS: Pantoprazole Inj 40 MG Vial IV.PUSH SCH ×2 (18:06→21:50)
--- NOTE | 2018-01-04 18:32 | P.PNGI ---
Subjective Interval history: Pt is resting in bed, doing better today, no bleeding reported. had paracentesis today, tolerating diet ok. <Prabhakar Ballard - Last Filed: 01/04/18 18:32> Physical Exam Vital signs: Vital Signs 01/03/18 18:25 01/03/18 20:00 01/03/18 20:08 Temperature 98.1 F Pulse Rate 73 80 Respiratory Rate 29 H 11 L Blood Pressure 141/81 H 142/78 H Pulse Oximetry 100 71 L 100 01/03/18 22:00 01/03/18 23:00 01/04/18 00:00 Temperature 97.9 F Pulse Rate 71 70 Respiratory Rate 20 24 Blood Pressure 130/74 Pulse Oximetry 100 01/04/18 02:00 01/04/18 04:00 01/04/18 04:55 Temperature 98.2 F Pulse Rate 71 70 Respiratory Rate 25 H 20 Blood Pressure 115/53 L Pulse Oximetry 100 94 L 01/04/18 06:00 01/04/18 08:00 01/04/18 10:00 Temperature 99.4 F Pulse Rate 67 66 77 Respiratory Rate 25 H 24 Blood Pressure 133/70 Pulse Oximetry 94 L 01/04/18 11:02 01/04/18 12:00 Temperature Pulse Rate 76 79 Respiratory Rate 22 Blood Pressure 129/67 Pulse Oximetry 97 Intake & Output 01/03/18 01/04/18 01/04/18 18:59 06:59 18:59 Intake Total 2009 1730 / 1730 50 / 50 Output Total 1125 / 1125 550 / 550 Balance 885 / 885 1180 / 1180 50 / 50 Weight 103 kg Intake: IV 1350 / 1350 1250 / 1250 50 / 50 LR 1000 mL Inj 1,000 ML @ 84 1000 / 1000 1000 / 1000 mls/hr IV.CONT .[id number] [facility] Rx# :[id number] Protonix Inj 80 MG In NS Inj 300 / 300 100 / 100 100 ML @ 10 mls/hr IV.CONT Q10H [facility] Rx#:[id number] Zosyn 3.375 GM Premix 50 ML @ 50 / 50 150 / 150 50 / 50 100 mls/hr IV.SIG Q6HR [facility] Rx#: [id number] Oral 360 / 360 480 / 480 Anesthesia Amount 300 / 300 Intake (Blood Product) Amt 0 / 0 Plt Pheresis B Leukoreduced 0 / 0 Unit [id number] Output: Urine 1125 / 1125 550 / 550 Other: Date of Last Bowel Movement 01/03/18 01/01/18 01/01/18 - Constitutional no acute distress - Routine HEENT Exam Head: Present: normocephalic - Routine Respiratory Exam Present: CTA bilaterally - Routine Cardiovascular Exam Present: RRR - Routine Abdominal Exam Present: soft, normoactive bowel sounds, organomegaly - Routine Extremities Exam Present: edema - Routine Skin Exam Present: intact, dry, jaundice Comments: tattoos - Routine Neurological Exam Present: alert, oriented X3 <Prabhakar Ballard - Last Filed: 01/04/18 18:32> Vital signs: Vital Signs 01/03/18 23:00 01/04/18 00:00 01/04/18 02:00 Temperature 97.9 F Pulse Rate 70 71 Respiratory Rate 20 24 Blood Pressure 130/74 Pulse Oximetry 100 100 01/04/18 04:00 01/04/18 04:55 01/04/18 06:00 Temperature 98.2 F Pulse Rate 70 67 Respiratory Rate 25 H 20 Blood Pressure 115/53 L Pulse Oximetry 94 L 01/04/18 08:00 01/04/18 09:40 01/04/18 09:45 Temperature Pulse Rate 66 73 Respiratory Rate 25 H 24 Blood Pressure 133/73 131/70 Pulse Oximetry 94 L 01/04/18 09:58 01/04/18 10:00 01/04/18 10:05 Temperature 99.4 F Pulse Rate 69 70 74 Respiratory Rate 24 24 21 Blood Pressure 132/72 133/70 131/69 Pulse Oximetry 93 L 94 L 95 01/04/18 10:10 01/04/18 10:15 01/04/18 10:30 Temperature Pulse Rate 70 69 76 Respiratory Rate 22 23 27 H Blood Pressure 118/57 L 118/56 L 121/62 Pulse Oximetry 93 L 93 L 95 01/04/18 11:00 01/04/18 11:01 01/04/18 11:02 Temperature Pulse Rate 74 73 76 Respiratory Rate 25 H 20 22 Blood Pressure 125/64 129/67 129/67 Pulse Oximetry 97 96 97 01/04/18 11:09 01/04/18 11:15 01/04/18 11:30 Temperature Pulse Rate 72 75 74 Respiratory Rate 8 L 25 H Blood Pressure 137/72 133/68 128/66 Pulse Oximetry 96 95 94 L 01/04/18 11:45 01/04/18 11:47 01/04/18 12:00 Temperature Pulse Rate 71 79 Respiratory Rate 20 Blood Pressure 137/72 128/70 133/61 Pulse Oximetry 94 L 94 L 97 01/04/18 12:12 01/04/18 13:00 01/04/18 13:45 Temperature Pulse Rate 75 78 76 Respiratory Rate 23 30 H 25 H Blood Pressure 138/69 130/61 Pulse Oximetry 96 98 01/04/18 14:00 01/04/18 15:00 01/04/18 16:00 Temperature Pulse Rate 74 81 83 Respiratory Rate 20 13 20 Blood Pressure 134/63 130/56 L 127/60 Pulse Oximetry 98 98 100 01/04/18 17:00 01/04/18 18:00 01/04/18 19:00 Temperature Pulse Rate 67 69 79 Respiratory Rate 13 14 20 Blood Pressure 125/60 123/64 119/64 Pulse Oximetry 100 100 01/04/18 20:00 Temperature 98.2 F Pulse Rate 76 Respiratory Rate 18 Blood Pressure 134/60 Pulse Oximetry 98 Intake & Output 01/04/18 01/04/18 01/05/18 06:59 18:59 06:59 Intake Total 1730 / 1730 900 / 900 Output Total 550 / 550 4200 / 4200 Balance 1180 / 1180 -3300 / -3300 Weight 103 kg Intake: IV 1250 / 1250 50 / 50 LR 1000 mL Inj 1,000 ML @ 84 1000 / 1000 mls/hr IV.CONT .[id number] NAIVD Rx# :[id number] Protonix Inj 80 MG In NS Inj 100 / 100 100 ML @ 10 mls/hr IV.CONT Q10H [facility] Rx#:[id number] Zosyn 3.375 GM Premix 50 ML @ 150 / 150 50 / 50 100 mls/hr IV.SIG Q6HR [facility] Rx#: [id number] Oral 480 / 480 550 / 550 Anesthesia Amount 300 / 300 Output: Urine 550 / 550 4200 / 4200 Other: # Voids 4 Date of Last Bowel Movement 01/01/18 01/01/18 <Adam Sanchez A - Last Filed: 01/04/18 22:46> Results - Labs CBC & Chem 7: 01/04/18 04:18 01/04/18 04:18 Laboratory Results - last 24 hr 01/03/18 01/04/18 01/04/18 21:10 04:18 04:18 WBC 5.5 RBC 2.92 L Hgb 7.5 L 7.4 L Hct 23.3 L 22.8 L MCV 78.3 L MCH 25.4 L MCHC 32.5 RDW 20.7 H Plt Count 81 L MPV 8.7 Prelim Diff (Auto) Slide review pending Neut % (Auto) 64.5 Lymph % (Auto) 21.2 Bibb % (Auto) 12.0 H Eos % (Auto) 1.8 Baso % (Auto) 0.5 Neut # (Auto) 3.6 Lymph # (Auto) 1.2 Bibb # (Auto) 0.7 Eos # (Auto) 0.1 Baso # (Auto) 0.0 WBC Differential Manual diff final Seg Neuts % (Manual) 69 Band Neuts % (Manual) 8 H Lymphocytes % (Manual) 17 Monocytes % (Manual) 4 Basophils % (Manual) 1 Metamyelocytes % (Man) 1 Abs Neuts (Manual) 4.3 Differential Comment . Platelet Estimate Low L Platelet Morphology Normal Ovalocytes 1+ H PT 14.6 H INR 1.4 Sodium Potassium Chloride Carbon Dioxide Anion Gap BUN Creatinine Estimated GFR Random Glucose Calcium Prot Corrected Calcium Magnesium Total Bilirubin AST ALT Alkaline Phosphatase Total Protein Albumin Peritoneal RBC Periton Nuc Cells Periton Neutrophils Periton Lymphocytes Peritoneal Monocytes Periton Mesothelial Periton Histiocytes Peritoneal Tot Protein Peritoneal Albumin Peritoneal LDH Peritoneal Glucose Peritoneal Amylase 01/04/18 01/04/18 01/04/18 04:18 10:42 10:42 WBC RBC Hgb Hct MCV MCH MCHC RDW Plt Count MPV Prelim Diff (Auto) Neut % (Auto) Lymph % (Auto) Bibb % (Auto) Eos % (Auto) Baso % (Auto) Neut # (Auto) Lymph # (Auto) Bibb # (Auto) Eos # (Auto) Baso # (Auto) WBC Differential Seg Neuts % (Manual) Band Neuts % (Manual) Lymphocytes % (Manual) Monocytes % (Manual) Basophils % (Manual) Metamyelocytes % (Man) Abs Neuts (Manual) Differential Comment Platelet Estimate Platelet Morphology Ovalocytes PT INR Sodium 139 Potassium 3.6 Chloride 104 Carbon Dioxide 26.1 Anion Gap 9 BUN 9 Creatinine 0.68 Estimated GFR Greater than 89 Random Glucose 86 Calcium 7.0 L* Prot Corrected Calcium 7.6 L Magnesium 2.2 Total Bilirubin 1.6 H AST 23 ALT 15 Alkaline Phosphatase 91 Total Protein 6.0 L Albumin 2.0 L Peritoneal RBC 620 H Periton Nuc Cells 172 H Periton Neutrophils 7 Periton Lymphocytes 87 Peritoneal Monocytes 4 Periton Mesothelial 1 Periton Histiocytes 1 Peritoneal Tot Protein 1.1 Peritoneal Albumin 0.5 Peritoneal LDH 50 Peritoneal Glucose 85 Peritoneal Amylase 15 Microbiology 01/02/18 13:15 Blood - Peripheral Aerobic Blood Culture - Preliminary gram negative rods 01/02/18 13:15 Blood - Peripheral Anaerobic Blood Culture - Preliminary gram negative rods 01/02/18 13:18 Blood - Peripheral Aerobic Blood Culture - Preliminary gram negative rods 01/02/18 13:18 Blood - Peripheral Anaerobic Blood Culture - Preliminary gram negative rods - Imaging Impressions Paracentesis Ultrasound 01/04/18 00:00 CONCLUSION: Ultrasound-guided thoracentesis as above. <Prabhakar Blalard - Last Filed: 01/04/18 18:32> - Labs CBC & Chem 7: 01/04/18 04:18 01/04/18 04:18 Laboratory Results - last 24 hr 01/04/18 01/04/18 01/04/18 04:18 04:18 04:18 WBC 5.5 RBC 2.92 L Hgb 7.4 L Hct 22.8 L MCV 78.3 L MCH 25.4 L MCHC 32.5 RDW 20.7 H Plt Count 81 L MPV 8.7 Prelim Diff (Auto) Slide review pending Neut % (Auto) 64.5 Lymph % (Auto) 21.2 Bibb % (Auto) 12.0 H Eos % (Auto) 1.8 Baso % (Auto) 0.5 Neut # (Auto) 3.6 Lymph # (Auto) 1.2 Bibb # (Auto) 0.7 Eos # (Auto) 0.1 Baso # (Auto) 0.0 WBC Differential Manual diff final Seg Neuts % (Manual) 69 Band Neuts % (Manual) 8 H Lymphocytes % (Manual) 17 Monocytes % (Manual) 4 Basophils % (Manual) 1 Metamyelocytes % (Man) 1 Abs Neuts (Manual) 4.3 Differential Comment . Platelet Estimate Low L Platelet Morphology Normal Ovalocytes 1+ H PT 14.6 H INR 1.4 Sodium 139 Potassium 3.6 Chloride 104 Carbon Dioxide 26.1 Anion Gap 9 BUN 9 Creatinine 0.68 Estimated GFR Greater than 89 Random Glucose 86 Calcium 7.0 L* Prot Corrected Calcium 7.6 L Magnesium 2.2 Total Bilirubin 1.6 H AST 23 ALT 15 Alkaline Phosphatase 91 Total Protein 6.0 L Albumin 2.0 L Peritoneal RBC Periton Nuc Cells Periton Neutrophils Periton Lymphocytes Peritoneal Monocytes Periton Mesothelial Periton Histiocytes Peritoneal Tot Protein Peritoneal Albumin Peritoneal LDH Peritoneal Glucose Peritoneal Amylase 01/04/18 01/04/18 10:42 10:42 WBC RBC Hgb Hct MCV MCH MCHC RDW Plt Count MPV Prelim Diff (Auto) Neut % (Auto) Lymph % (Auto) Bibb % (Auto) Eos % (Auto) Baso % (Auto) Neut # (Auto) Lymph # (Auto) Bibb # (Auto) Eos # (Auto) Baso # (Auto) WBC Differential Seg Neuts % (Manual) Band Neuts % (Manual) Lymphocytes % (Manual) Monocytes % (Manual) Basophils % (Manual) Metamyelocytes % (Man) Abs Neuts (Manual) Differential Comment Platelet Estimate Platelet Morphology Ovalocytes PT INR Sodium Potassium Chloride Carbon Dioxide Anion Gap BUN Creatinine Estimated GFR Random Glucose Calcium Prot Corrected Calcium Magnesium Total Bilirubin AST ALT Alkaline Phosphatase Total Protein Albumin Peritoneal RBC 620 H Periton Nuc Cells 172 H Periton Neutrophils 7 Periton Lymphocytes 87 Peritoneal Monocytes 4 Periton Mesothelial 1 Periton Histiocytes 1 Peritoneal Tot Protein 1.1 Peritoneal Albumin 0.5 Peritoneal LDH 50 Peritoneal Glucose 85 Peritoneal Amylase 15 Microbiology 01/02/18 13:15 Blood - Peripheral Aerobic Blood Culture - Preliminary gram negative rods 01/02/18 13:15 Blood - Peripheral Anaerobic Blood Culture - Preliminary gram negative rods 01/02/18 13:18 Blood - Peripheral Aerobic Blood Culture - Preliminary gram negative rods 01/02/18 13:18 Blood - Peripheral Anaerobic Blood Culture - Preliminary gram negative rods - Imaging Impressions Paracentesis Ultrasound 01/04/18 00:00 CONCLUSION: Ultrasound-guided thoracentesis as above. <Adam Sanchez A - Last Filed: 01/04/18 22:46> Assessment and Plan - Plan - Hematemesis/esophageal varices- No more bleeding, had brown BM today S/P EGD/ banding on 01/04/18, I don't have official report one episode of hematemesis (bright red) a week ago but non after. Denies bloody or black tarry stools. States that he has been having diffused constant abdominal pain. hgb on arrival was 4.8, today this is 7.4 s/p blood transfusion (4 units) Pt hasn't been following with GI provider as an OP. Denies daily alcohol intake, but admits to drinking 2 weeks ago then 4 days ago, a large amount (not able to specify). Denies current drug use. Denies blood thinner. PPI - Cirrhosis- MELD score 15, LFTs wnl. hx of alcohol and hep-C, hasn't been following with GI provider Abdomen/Pelvis CT 01/02/18 Cirrhosis and portal hypertension. Abnormal circumferential bowel wall thickening involving the transverse colon and descending colon characteristic of colitis. Liver Ultrasound 01/02/18 Enlarged echogenic liver consistent with fatty infiltration and/or diffuse hepatocellular disease. Ascites. Hepatopetal flow within the portal vein. Splenomegaly. Gallbladder wall thickening. If there is clinical concern for acute cholecystitis, a hepatobiliary scan may be helpful to confirm cystic duct obstruction. - ? acute alcohol hepatitis- DF is 20, pt cont. to drink but not daily, admits to drinking 4 days ago (large amount) - Ascites- S/P paracentesis today 2 L removed, no indication of infection so far. Zosyn. - High bilirubin- Trending down - hep-C (s/p unsuccessful tx in the past X 2, not sure what type)- discuss tx as an OP - Sepsis- ? SBP - Coagulopathy/ thrombocytopenia- Secondary to above - High ammonia- 61 on lactulose - Colitis on CT- abx, will need colonoscopy at some point Plan: - Clears - cont. monitoring hh and transfuse as needed - Cont. PPI - Will start octreotide drip X 72 hrs - Alcohol cessation - Monitor labs - Lasix 40 mg - Aldactone 100 mg - lactulose - Cont. Zosyn - Will need colonoscopy at some point - Alcohol cessation strongly advised - Supportive care - Pt was seen and examined by Dr. Sanchez and myself and this note is written on his behalf. <Prabhakar Ballard - Last Filed: 01/04/18 18:32> - Attending Attestation Agree with above assessment and plan. continue supportive care, will advance diet further in AM if continue to be stable. <Adam Sanchez - Last Filed: 01/04/18 22:46>
[2018-01-04] MEDS: Octreotide Inj 500 MCG in Sodium Chlor 0.9% Inj 500 ML IV.CONT SCH (21:49)
[2018-01-05] MEDS: Piperacil/Tazo 3.375 GM Premix 50 ML IV.SIG SCH ×4 (01:46→17:57)
[2018-01-05 05:31] LABS: Baso # (Auto) 0.1 th/mm3 (0.0-0.2); Baso % (Auto) 1.1 % (0.0-2.0); Eos # (Auto) 0.1 th/mm3 (0.0-0.4); Eos % (Auto) 1.4 % (0.0-4.0); Hematocrit 23.6 % (39.0-51.0); Hemoglobin 7.6 gm/dL (13.0-17.0); Lymph # (Auto) 1.5 th/mm3 (1.0-4.8); Lymph % (Auto) 31.2 % (9.0-44.0); Mean Corpuscular HGB Conc 32.2 % (32.0-36.0); Mean Corpuscular Hemoglobin 25.4 pg (27.0-34.0); Mean Corpuscular Volume 78.7 fL (80.0-100.0); Mean Platelet Volume 8.6 fL (7.0-11.0); Mono # (Auto) 0.4 th/mm3 (0.0-0.9); Mono % (Auto) 7.9 % (0.0-8.0); Neut # (Auto) 2.9 th/mm3 (1.8-7.7); Neut % (Auto) 58.4 % (16.0-70.0); Platelet Count 66 th/mm3 (150-450); Red Cell Distribution Width 20.1 % (11.6-17.2); White Blood Count 4.9 th/mm3 (4.0-11.0)
[2018-01-05 05:40] LABS: INR 1.3 Ratio; Prothrombin Time 13.4 sec (9.8-11.6)
[2018-01-05 06:15] LABS: Alanine Aminotransferase 15 U/L (12-78); Alkaline Phosphatase 95 U/L (45-117); Anion Gap 8 meq/L (5-15); Aspartate Aminotransferase 25 U/L (15-37); Blood Urea Nitrogen 7 mg/dL (7-18); Calcium 7.2 mg/dL (8.5-10.1); Carbon Dioxide 26.9 meq/L (21.0-32.0); Chloride 106 meq/L (98-107); Glomerular Filtration Rate Greater Than 89 mL/min (>89); Glucose,Random 92 mg/dL (74-106); Potassium 3.7 meq/L (3.5-5.1); Sodium 141 meq/L (136-145); Total Protein 5.8 g/dL (6.4-8.2)
[2018-01-05 08:17] LABS: Acanthocytes Occ; Ovalocytes 1+
[2018-01-05 08:18] LABS: Dimorphic RBC Present; Platelet Morphology Normal (Normal)
[2018-01-05] MEDS: Pantoprazole Inj 40 MG Vial IV.PUSH SCH (08:29)
[2018-01-05] MEDS: Pantoprazole Inj 80 MG in Sodium Chlor 0.9% Inj 100 ML IV.CONT SCH (08:47)
--- NOTE | 2018-01-05 11:33 | P.PN ---
Subjective Interval history: Follow-up esophageal varices/cirrhosis January 05, 2018-patient seen and examined; denies any abdominal pain. He had banding of esophageal varices yesterday. Patient is also status post paracentesis. Currently afebrile. Tolerating p.o. without any complications nausea and vomiting. Physical Exam Vital signs: Vital Signs 01/04/18 11:30 01/04/18 11:45 01/04/18 11:47 Temperature Pulse Rate 74 71 Respiratory Rate Blood Pressure 128/66 137/72 128/70 Pulse Oximetry 94 L 94 L 94 L 01/04/18 12:00 01/04/18 12:12 01/04/18 13:00 Temperature Pulse Rate 79 75 78 Respiratory Rate 20 23 30 H Blood Pressure 133/61 138/69 Pulse Oximetry 97 96 98 01/04/18 13:45 01/04/18 14:00 01/04/18 15:00 Temperature Pulse Rate 76 74 81 Respiratory Rate 25 H 20 13 Blood Pressure 130/61 134/63 130/56 L Pulse Oximetry 98 98 01/04/18 16:00 01/04/18 17:00 01/04/18 18:00 Temperature Pulse Rate 83 67 69 Respiratory Rate 20 13 14 Blood Pressure 127/60 125/60 123/64 Pulse Oximetry 100 100 01/04/18 19:00 01/04/18 20:00 01/04/18 21:00 Temperature 98.2 F Pulse Rate 79 67 78 Respiratory Rate 20 18 29 H Blood Pressure 119/64 134/60 Pulse Oximetry 100 98 95 01/04/18 21:01 01/04/18 22:00 01/04/18 23:00 Temperature Pulse Rate 74 76 68 Respiratory Rate 33 H 20 15 Blood Pressure 119/57 L 131/65 119/57 L Pulse Oximetry 97 98 96 01/05/18 00:00 01/05/18 01:00 01/05/18 02:00 Temperature 98.2 F Pulse Rate 68 70 62 Respiratory Rate 18 16 20 Blood Pressure 119/51 L 102/55 L 117/69 Pulse Oximetry 93 L 93 L 93 L 01/05/18 03:00 01/05/18 04:00 01/05/18 05:00 Temperature 97.9 F Pulse Rate 62 63 81 Respiratory Rate 16 27 H 38 H Blood Pressure 127/67 113/62 Pulse Oximetry 96 94 L 01/05/18 05:14 01/05/18 06:00 01/05/18 07:00 Temperature Pulse Rate 63 62 60 Respiratory Rate 24 22 25 H Blood Pressure 121/60 124/65 120/64 Pulse Oximetry 95 94 L 92 L 01/05/18 08:00 01/05/18 09:00 01/05/18 10:00 Temperature 99.4 F Pulse Rate 67 69 61 Respiratory Rate 10 L 22 Blood Pressure 133/72 114/62 Pulse Oximetry 94 L 98 Intake & Output 01/04/18 01/05/18 01/05/18 18:59 06:59 18:59 Intake Total 950 / 950 570 / 570 50 / 50 Output Total 4200 / 4200 400 / 400 Balance -3250 / -3250 170 / 170 50 / 50 Weight 96.8 kg Intake: IV 100 / 100 50 / 50 50 / 50 Zosyn 3.375 GM Premix 50 ML @ 100 / 100 50 / 50 50 / 50 100 mls/hr IV.SIG Q6HR [facility] Rx#: [id number] Oral 550 / 550 520 / 520 Anesthesia Amount 300 / 300 Output: Urine 4200 / 4200 400 / 400 Other: # Voids 4 Date of Last Bowel Movement 01/01/18 01/05/18 01/05/18 # Bowel Movements 2 Narrative: GENERAL: NAD SKIN: Warm and dry. HEAD: Normocephalic. EYES: No scleral icterus. No injection or drainage. NECK: Supple, trachea midline. No JVD or lymphadenopathy. CARDIOVASCULAR: Regular rate and rhythm without murmurs, gallops, or rubs. RESPIRATORY: Breath sounds equal bilaterally. No accessory muscle use. GASTROINTESTINAL: Abdomen soft, non-tender, nondistended. MUSCULOSKELETAL: No cyanosis, or edema. BACK: Nontender without obvious deformity. No CVA tenderness. Results - Labs CBC & Chem 7: 01/05/18 04:32 01/05/18 04:32 Laboratory Results - last 24 hr 01/04/18 01/04/18 01/05/18 10:42 10:42 04:32 WBC 4.9 RBC 3.00 L Hgb 7.6 L Hct 23.6 L MCV 78.7 L MCH 25.4 L MCHC 32.2 RDW 20.1 H Plt Count 66 L MPV 8.6 Prelim Diff (Auto) Slide review pending Neut % (Auto) 58.4 Lymph % (Auto) 31.2 [place] % (Auto) 7.9 Eos % (Auto) 1.4 Baso % (Auto) 1.1 Neut # (Auto) 2.9 Lymph # (Auto) 1.5 [place] # (Auto) 0.4 Eos # (Auto) 0.1 Baso # (Auto) 0.1 WBC Differential . Diff Scan Auto diff confirmed Differential Comment . Platelet Estimate Low L Platelet Morphology Normal Dimorphic RBCs Present H Ovalocytes 1+ H Acanthocytes (Spur) Occ H PT INR Sodium Potassium Chloride Carbon Dioxide Anion Gap BUN Creatinine Estimated GFR Random Glucose Calcium Prot Corrected Calcium Total Bilirubin AST ALT Alkaline Phosphatase Total Protein Albumin Peritoneal RBC 620 H Periton Nuc Cells 172 H Periton Neutrophils 7 Periton Lymphocytes 87 Peritoneal Monocytes 4 Periton Mesothelial 1 Periton Histiocytes 1 Peritoneal Tot Protein 1.1 Peritoneal Albumin 0.5 Peritoneal LDH 50 Peritoneal Glucose 85 Peritoneal Amylase 15 01/05/18 01/05/18 04:32 04:32 WBC RBC Hgb Hct MCV MCH MCHC RDW Plt Count MPV Prelim Diff (Auto) Neut % (Auto) Lymph % (Auto) [place] % (Auto) Eos % (Auto) Baso % (Auto) Neut # (Auto) Lymph # (Auto) [place] # (Auto) Eos # (Auto) Baso # (Auto) WBC Differential Diff Scan Differential Comment Platelet Estimate Platelet Morphology Dimorphic RBCs Ovalocytes Acanthocytes (Spur) PT 13.4 H INR 1.3 Sodium 141 Potassium 3.7 Chloride 106 Carbon Dioxide 26.9 Anion Gap 8 BUN 7 Creatinine 0.81 Estimated GFR Greater than 89 Random Glucose 92 Calcium 7.2 L* Prot Corrected Calcium 7.9 L Total Bilirubin 1.6 H AST 25 ALT 15 Alkaline Phosphatase 95 Total Protein 5.8 L Albumin 2.0 L Peritoneal RBC Periton Nuc Cells Periton Neutrophils Periton Lymphocytes Peritoneal Monocytes Periton Mesothelial Periton Histiocytes Peritoneal Tot Protein Peritoneal Albumin Peritoneal LDH Peritoneal Glucose Peritoneal Amylase Microbiology 01/02/18 13:15 Blood - Peripheral Aerobic Blood Culture - Final Serratia marcescens 01/02/18 13:15 Blood - Peripheral Anaerobic Blood Culture - Final Serratia marcescens 01/02/18 13:18 Blood - Peripheral Aerobic Blood Culture - Final Serratia marcescens 01/02/18 13:18 Blood - Peripheral Anaerobic Blood Culture - Final Serratia marcescens - Imaging Impressions Paracentesis Ultrasound 01/04/18 00:00 CONCLUSION: Ultrasound-guided thoracentesis as above. Assessment and Plan - Plan 32-year-old man with Esophageal varices Cirrhosis with ascites History of hepatitis C Status post upper endoscopy with banding of varices Status post paracentesis and monitor culture report Currently on octreotide drip and 10 January 07, 2018 Continue Lasix IV daily, Aldactone, lactulose twice daily, PPI 40 mg every 12 hours, Zosyn Management per gastroenterology Severe anemia Coagulopathy Was transfused couple units of packed red blood cell, vitamin K Continue to monitor Gram-negative bacteremia On Zosyn and monitor culture report Tobacco abuse Tobacco counseling cessation provided Continue with nicotine patch Alcohol abuse Alcohol counseling cessation provided Continue CIWA protocol, rally pack DVT prophylaxis -SCDs only, ambulate as tolerated, does not need chemical prophylaxis (Caprini VTE 1)
--- NOTE | 2018-01-05 11:45 | P.PNGI ---
Subjective Interval history: No signs of GI bleeding, tolerating diet well. Physical Exam Vital signs: Vital Signs 01/04/18 11:45 01/04/18 11:47 01/04/18 12:00 Temperature Pulse Rate 71 79 Respiratory Rate 20 Blood Pressure 137/72 128/70 133/61 Pulse Oximetry 94 L 94 L 97 01/04/18 12:12 01/04/18 13:00 01/04/18 13:45 Temperature Pulse Rate 75 78 76 Respiratory Rate 23 30 H 25 H Blood Pressure 138/69 130/61 Pulse Oximetry 96 98 01/04/18 14:00 01/04/18 15:00 01/04/18 16:00 Temperature Pulse Rate 74 81 83 Respiratory Rate 20 13 20 Blood Pressure 134/63 130/56 L 127/60 Pulse Oximetry 98 98 100 01/04/18 17:00 01/04/18 18:00 01/04/18 19:00 Temperature Pulse Rate 67 69 79 Respiratory Rate 13 14 20 Blood Pressure 125/60 123/64 119/64 Pulse Oximetry 100 100 01/04/18 20:00 01/04/18 21:00 01/04/18 21:01 Temperature 98.2 F Pulse Rate 67 78 74 Respiratory Rate 18 29 H 33 H Blood Pressure 134/60 119/57 L Pulse Oximetry 98 95 97 01/04/18 22:00 01/04/18 23:00 01/05/18 00:00 Temperature 98.2 F Pulse Rate 76 68 68 Respiratory Rate 20 15 18 Blood Pressure 131/65 119/57 L 119/51 L Pulse Oximetry 98 96 93 L 01/05/18 01:00 01/05/18 02:00 01/05/18 03:00 Temperature Pulse Rate 70 62 62 Respiratory Rate 16 20 16 Blood Pressure 102/55 L 117/69 127/67 Pulse Oximetry 93 L 93 L 96 01/05/18 04:00 01/05/18 05:00 01/05/18 05:14 Temperature 97.9 F Pulse Rate 63 81 63 Respiratory Rate 27 H 38 H 24 Blood Pressure 113/62 121/60 Pulse Oximetry 94 L 95 01/05/18 06:00 01/05/18 07:00 01/05/18 08:00 Temperature 99.4 F Pulse Rate 62 60 67 Respiratory Rate 22 25 H 10 L Blood Pressure 124/65 120/64 133/72 Pulse Oximetry 94 L 92 L 94 L 01/05/18 09:00 01/05/18 10:00 Temperature Pulse Rate 69 61 Respiratory Rate 22 Blood Pressure 114/62 Pulse Oximetry 98 Intake & Output 01/04/18 01/05/18 01/05/18 18:59 06:59 18:59 Intake Total 950 / 950 570 / 570 50 / 50 Output Total 4200 / 4200 400 / 400 Balance -3250 / -3250 170 / 170 50 / 50 Weight 96.8 kg Intake: IV 100 / 100 50 / 50 50 / 50 Zosyn 3.375 GM Premix 50 ML @ 100 / 100 50 / 50 50 / 50 100 mls/hr IV.SIG Q6HR [facility] Rx#: [id number] Oral 550 / 550 520 / 520 Anesthesia Amount 300 / 300 Output: Urine 4200 / 4200 400 / 400 Other: # Voids 4 Date of Last Bowel Movement 01/01/18 01/05/18 01/05/18 # Bowel Movements 2 - Constitutional no acute distress - Routine HEENT Exam Head: Present: normocephalic, atraumatic Eye: Present: EOMI, PERRL ENT: Present: mucous membranes moist - Routine Neck Exam Present: supple, full ROM - Routine Respiratory Exam Present: CTA bilaterally - Routine Cardiovascular Exam Present: RRR - Routine Abdominal Exam Present: soft, normoactive bowel sounds - Routine Extremities Exam Present: pulses intact - Routine Skin Exam Present: intact - Routine Neurological Exam Present: alert, oriented X3, CN II-XII intact - Routine Psychiatric Exam Present: normal affect Results - Labs CBC & Chem 7: 01/05/18 04:32 01/05/18 04:32 Laboratory Results - last 24 hr 01/04/18 01/04/18 01/05/18 10:42 10:42 04:32 WBC 4.9 RBC 3.00 L Hgb 7.6 L Hct 23.6 L MCV 78.7 L MCH 25.4 L MCHC 32.2 RDW 20.1 H Plt Count 66 L MPV 8.6 Prelim Diff (Auto) Slide review pending Neut % (Auto) 58.4 Lymph % (Auto) 31.2 [place] % (Auto) 7.9 Eos % (Auto) 1.4 Baso % (Auto) 1.1 Neut # (Auto) 2.9 Lymph # (Auto) 1.5 [place] # (Auto) 0.4 Eos # (Auto) 0.1 Baso # (Auto) 0.1 WBC Differential . Diff Scan Auto diff confirmed Differential Comment . Platelet Estimate Low L Platelet Morphology Normal Dimorphic RBCs Present H Ovalocytes 1+ H Acanthocytes (Spur) Occ H PT INR Sodium Potassium Chloride Carbon Dioxide Anion Gap BUN Creatinine Estimated GFR Random Glucose Calcium Prot Corrected Calcium Total Bilirubin AST ALT Alkaline Phosphatase Total Protein Albumin Peritoneal RBC 620 H Periton Nuc Cells 172 H Periton Neutrophils 7 Periton Lymphocytes 87 Peritoneal Monocytes 4 Periton Mesothelial 1 Periton Histiocytes 1 Peritoneal Tot Protein 1.1 Peritoneal Albumin 0.5 Peritoneal LDH 50 Peritoneal Glucose 85 Peritoneal Amylase 15 01/05/18 01/05/18 04:32 04:32 WBC RBC Hgb Hct MCV MCH MCHC RDW Plt Count MPV Prelim Diff (Auto) Neut % (Auto) Lymph % (Auto) [place] % (Auto) Eos % (Auto) Baso % (Auto) Neut # (Auto) Lymph # (Auto) [place] # (Auto) Eos # (Auto) Baso # (Auto) WBC Differential Diff Scan Differential Comment Platelet Estimate Platelet Morphology Dimorphic RBCs Ovalocytes Acanthocytes (Spur) PT 13.4 H INR 1.3 Sodium 141 Potassium 3.7 Chloride 106 Carbon Dioxide 26.9 Anion Gap 8 BUN 7 Creatinine 0.81 Estimated GFR Greater than 89 Random Glucose 92 Calcium 7.2 L* Prot Corrected Calcium 7.9 L Total Bilirubin 1.6 H AST 25 ALT 15 Alkaline Phosphatase 95 Total Protein 5.8 L Albumin 2.0 L Peritoneal RBC Periton Nuc Cells Periton Neutrophils Periton Lymphocytes Peritoneal Monocytes Periton Mesothelial Periton Histiocytes Peritoneal Tot Protein Peritoneal Albumin Peritoneal LDH Peritoneal Glucose Peritoneal Amylase Microbiology 01/02/18 13:15 Blood - Peripheral Aerobic Blood Culture - Final Serratia marcescens 01/02/18 13:15 Blood - Peripheral Anaerobic Blood Culture - Final Serratia marcescens 01/02/18 13:18 Blood - Peripheral Aerobic Blood Culture - Final Serratia marcescens 01/02/18 13:18 Blood - Peripheral Anaerobic Blood Culture - Final Serratia marcescens - Imaging Impressions Paracentesis Ultrasound 01/04/18 00:00 CONCLUSION: Ultrasound-guided thoracentesis as above. Assessment and Plan - Plan - Hematemesis/esophageal varices- No more bleeding, had brown BM today S/P EGD/ banding on 01/04/18, I don't have official report one episode of hematemesis (bright red) a week ago but non after. Denies bloody or black tarry stools. States that he has been having diffused constant abdominal pain. hgb on arrival was 4.8, today this is 7.4 s/p blood transfusion (4 units) Pt hasn't been following with GI provider as an OP. Denies daily alcohol intake, but admits to drinking 2 weeks ago then 4 days ago, a large amount (not able to specify). Denies current drug use. Denies blood thinner. PPI - Cirrhosis- MELD score 15, LFTs wnl. hx of alcohol and hep-C, hasn't been following with GI provider Abdomen/Pelvis CT 01/02/18 Cirrhosis and portal hypertension. Abnormal circumferential bowel wall thickening involving the transverse colon and descending colon characteristic of colitis. Liver Ultrasound 01/02/18 Enlarged echogenic liver consistent with fatty infiltration and/or diffuse hepatocellular disease. Ascites. Hepatopetal flow within the portal vein. Splenomegaly. Gallbladder wall thickening. If there is clinical concern for acute cholecystitis, a hepatobiliary scan may be helpful to confirm cystic duct obstruction. - ? acute alcohol hepatitis- DF is 20, pt cont. to drink but not daily, admits to drinking 4 days ago (large amount) - Ascites- S/P paracentesis today 2 L removed, no indication of infection so far. Zosyn. - High bilirubin- Trending down - hep-C (s/p unsuccessful tx in the past X 2, not sure what type)- discuss tx as an OP - Sepsis- ? SBP - Coagulopathy/ thrombocytopenia- Secondary to above - High ammonia- 61 on lactulose - Colitis on CT- abx, will need colonoscopy at some point Plan: - Advance diet as tolerated - cont. monitoring hh and transfuse as needed - Alcohol cessation strongly advised - Supportive care
[2018-01-05] MEDS: Octreotide Inj 500 MCG in Sodium Chlor 0.9% Inj 500 ML IV.CONT SCH (14:23)
[2018-01-05] MEDS: ALPRAZolam 0.5 MG Tablet PO PRN (18:24)
[2018-01-06] MEDS: ALPRAZolam 0.5 MG Tablet PO PRN ×5 (00:17→23:09)
[2018-01-06] MEDS: Pantoprazole Inj 40 MG Vial IV.PUSH SCH ×3 (00:17→21:45)
[2018-01-06] MEDS: Piperacil/Tazo 3.375 GM Premix 50 ML IV.SIG SCH ×4 (00:18→17:59)
[2018-01-06 08:33] LABS: Baso % (Auto) 0.7 % (0.0-2.0); Eos # (Auto) 0.1 th/mm3 (0.0-0.4); Eos % (Auto) 1.9 % (0.0-4.0); Hematocrit 25.8 % (39.0-51.0); Hemoglobin 8.2 gm/dL (13.0-17.0); Lymph # (Auto) 1.1 th/mm3 (1.0-4.8); Lymph % (Auto) 29.8 % (9.0-44.0); Mean Corpuscular HGB Conc 31.8 % (32.0-36.0); Mean Corpuscular Hemoglobin 25.2 pg (27.0-34.0); Mean Corpuscular Volume 79.3 fL (80.0-100.0); Mean Platelet Volume 8.6 fL (7.0-11.0); Mono # (Auto) 0.3 th/mm3 (0.0-0.9); Mono % (Auto) 8.1 % (0.0-8.0); Neut # (Auto) 2.3 th/mm3 (1.8-7.7); Neut % (Auto) 59.5 % (16.0-70.0); Platelet Count 83 th/mm3 (150-450); Red Blood Count 3.26 mil/mm3 (4.50-5.90); Red Cell Distribution Width 21.3 % (11.6-17.2); White Blood Count 3.8 th/mm3 (4.0-11.0)
[2018-01-06 08:37] LABS: INR 1.3 Ratio; Prothrombin Time 13.6 sec (9.8-11.6)
[2018-01-06 08:58] LABS: Albumin 2.1 g/dL (3.4-5.0); Anion Gap 7 meq/L (5-15); Blood Urea Nitrogen 6 mg/dL (7-18); Calcium 7.6 mg/dL (8.5-10.1); Carbon Dioxide 27.6 meq/L (21.0-32.0); Chloride 106 meq/L (98-107); Glucose,Random 92 mg/dL (74-106); Potassium 3.6 meq/L (3.5-5.1); Sodium 141 meq/L (136-145)
[2018-01-06 08:59] LABS: Aspartate Aminotransferase 22 U/L (15-37); Glomerular Filtration Rate Greater Than 89 mL/min (>89)
[2018-01-06 09:01] LABS: Ovalocytes 1+; Platelet Morphology Normal (Normal)
[2018-01-06 09:06] LABS: Alanine Aminotransferase 15 U/L (12-78); Alkaline Phosphatase 98 U/L (45-117); Free T4 (Free Thyroxine) 0.99 ng/dL (0.76-1.46); Total Protein 6.1 g/dL (6.4-8.2)
[2018-01-06 11:34] LABS: Hemoglobin A1c 5.1 % (4.3-6.0)
--- NOTE | 2018-01-06 11:50 | P.PNIM ---
Subjective Interval history: 32yM who presented to [facility] complaining of a week and a half of abdominal pain. He states that he's been having diffuse "aching" abdominal pain which is constant, non-radiating, not made better or worse by anything, moderate to severe intensity, associated with abdominal distension. He says that about a week ago he was "throwing up a lot of bright red blood" but has not had this for the past several days, denies bloody/ black/ tarry stools. He also reports 5-7 days of bilateral lower extremity and scrotal edema. He presented to the ED today because he had tactile fever and "I was so weak I couldn't get out of bed". He has a history of hepatitis C and cirrhosis, A fib of uncertain etiology, and hypertension. He does not take any home meds (specifically denies use of anticoagulants/ antiplatelets). SUBJECTIVE: 01/03: Patient reports nausea and anxiety overnight, reports that he has a history of "panic attacks" and is requesting "something to calm me down". No episodes of hematemesis. Received 4U PRBCs in total overnight. 01/04: Patient went for upper endoscopy yesterday afternoon, found to have esophageal varices that were banded. s/p paracentesis this morning. Started on clear liquids. 01-05 Follow-up esophageal varices/cirrhosis January 05, 2018-patient seen and examined; denies any abdominal pain. He had banding of esophageal varices yesterday. Patient is also status post paracentesis. Currently afebrile. Tolerating p.o. without any complications nausea and vomiting. 01-06 REMAINS ON OCTREOTIDE DRIP AM LABS IF STABLE DC TO HOME TOMORROW NO ALCOHOL EVER AGAIN INCREASE LACTULOSE FOR ELEVATED AMMONIA LEVEL Physical Exam Vital signs: Vital Signs 01/05/18 12:00 01/05/18 14:00 01/05/18 16:00 Temperature 98.6 F 98.2 F Pulse Rate 65 64 64 Respiratory Rate 23 16 Blood Pressure 137/73 137/79 Pulse Oximetry 99 97 01/05/18 20:00 01/06/18 00:00 01/06/18 00:47 Temperature 97.9 F 98.3 F Pulse Rate 68 63 Respiratory Rate 21 18 18 Blood Pressure 134/63 125/66 Pulse Oximetry 98 96 01/06/18 04:00 01/06/18 06:48 01/06/18 08:00 Temperature 98.1 F 98.1 F Pulse Rate 54 L 60 Respiratory Rate 18 18 20 Blood Pressure 144/76 H 140/68 Pulse Oximetry 95 95 01/06/18 11:06 Temperature Pulse Rate Respiratory Rate Blood Pressure Pulse Oximetry 97 Intake & Output 01/05/18 01/06/18 01/06/18 18:59 06:59 18:59 Intake Total 650 / 650 1375 / 1375 Output Total 3500 / 3500 Balance -2850 / -2850 1375 / 1375 Weight 94.3 kg Intake: IV 650 / 650 100 / 100 SandoSTATIN Inj 500 MCG In NS 500 / 500 Inj 500 ML @ 25 MCG/HR 25.02 mls/hr IV.CONT .Q20H1M [facility] Rx#: [id number] Zosyn 3.375 GM Premix 50 ML @ 150 / 150 100 / 100 100 mls/hr IV.SIG Q6HR [facility] Rx#: [id number] Oral 1275 / 1275 Output: Urine 3500 / 3500 Other: # Voids 3 Date of Last Bowel Movement 01/05/18 01/05/18 # Bowel Movements 2 Narrative: GENERAL: NAD SKIN: Warm and dry. MULTIPLE [place]ATTO[place] HEAD: Normocephalic. EYES: No scleral icterus. No injection or drainage. NECK: Supple, trachea midline. No JVD or lymphadenopathy. CARDIOVASCULAR: Regular rate and rhythm without murmurs, gallops, or rubs. RESPIRATORY: Breath sounds equal bilaterally. No accessory muscle use. GASTROINTESTINAL: Abdomen soft, non-tender, nondistended. MUSCULOSKELETAL: No cyanosis, or edema. BACK: Nontender without obvious deformity. No CVA tenderness. Results - Labs CBC & Chem 7: 01/06/18 08:09 01/06/18 08:09 Laboratory Results - last 24 hr 01/03/18 01/06/18 01/06/18 07:30 08:09 08:09 WBC RBC Hgb Hct MCV MCH MCHC RDW Plt Count MPV Prelim Diff (Auto) Neut % (Auto) Lymph % (Auto) [place] % (Auto) Eos % (Auto) Baso % (Auto) Neut # (Auto) Lymph # (Auto) [place] # (Auto) Eos # (Auto) Baso # (Auto) WBC Differential Diff Scan Differential Comment Platelet Estimate Platelet Morphology Ovalocytes PT 13.6 H INR 1.3 Sodium 141 Potassium 3.6 Chloride 106 Carbon Dioxide 27.6 Anion Gap 7 BUN 6 L Creatinine 0.92 Estimated GFR Greater than 89 Random Glucose 92 Calcium 7.6 L Phosphorus 4.0 Magnesium 2.0 Total Bilirubin 1.3 H AST 22 ALT 15 Alkaline Phosphatase 98 Ammonia Total Protein 6.1 L Albumin 2.1 L TSH 1.480 Free T4 0.99 MTS Gel Crossmatch See Detail 01/06/18 01/06/18 08:09 08:09 WBC 3.8 L RBC 3.26 L Hgb 8.2 L Hct 25.8 L MCV 79.3 L MCH 25.2 L MCHC 31.8 L RDW 21.3 H Plt Count 83 L MPV 8.6 Prelim Diff (Auto) Slide review pending Neut % (Auto) 59.5 Lymph % (Auto) 29.8 [place] % (Auto) 8.1 H Eos % (Auto) 1.9 Baso % (Auto) 0.7 Neut # (Auto) 2.3 Lymph # (Auto) 1.1 [place] # (Auto) 0.3 Eos # (Auto) 0.1 Baso # (Auto) 0.0 WBC Differential . Diff Scan Auto diff confirmed Differential Comment . Platelet Estimate Low L Platelet Morphology Normal Ovalocytes 1+ H PT INR Sodium Potassium Chloride Carbon Dioxide Anion Gap BUN Creatinine Estimated GFR Random Glucose Calcium Phosphorus Magnesium Total Bilirubin AST ALT Alkaline Phosphatase Ammonia 50 H Total Protein Albumin TSH Free T4 MTS Gel Crossmatch Microbiology 01/02/18 13:15 Blood - Peripheral Aerobic Blood Culture - Final Serratia marcescens 01/02/18 13:15 Blood - Peripheral Anaerobic Blood Culture - Final Serratia marcescens 01/02/18 13:18 Blood - Peripheral Aerobic Blood Culture - Final Serratia marcescens 01/02/18 13:18 Blood - Peripheral Anaerobic Blood Culture - Final Serratia marcescens Assessment and Plan - Plan 32-year-old man with Esophageal varices Cirrhosis with ascites History of hepatitis C HEPATIC ENCEPHALOPATHY Status post upper endoscopy with banding of varices Status post paracentesis and monitor culture report Currently on octreotide drip and 10 January 07, 2018 Continue Lasix IV daily, Aldactone, lactulose twice daily, PPI 40 mg every 12 hours, Zosyn Management per gastroenterology INCREASE LACTULOSE Severe anemia Coagulopathy Was transfused couple units of packed red blood cell, vitamin K Continue to monitor Gram-negative bacteremia On Zosyn and monitor culture report Tobacco abuse Tobacco counseling cessation provided Continue with nicotine patch Alcohol abuse Alcohol counseling cessation provided Continue CIWA protocol, rally pack DVT prophylaxis -SCDs only, ambulate as tolerated, does not need chemical prophylaxis (Caprini VTE 1) Code Status: FULL CODE Discussed Condition With: RN AND PT AND CM Discharge Planning: PENDING IMPROVEMENT TOMORROW
[2018-01-06] MEDS: rifAXIMin 550 MG Tablet PO SCH ×2 (12:42→21:45)
[2018-01-06] MEDS: Octreotide Inj 500 MCG in Sodium Chlor 0.9% Inj 500 ML IV.CONT SCH (12:43)
[2018-01-07] MEDS: Piperacil/Tazo 3.375 GM Premix 50 ML IV.SIG SCH ×4 (00:35→17:10)
[2018-01-07] MEDS: ALPRAZolam 0.5 MG Tablet PO PRN ×4 (04:52→23:45)
[2018-01-07 07:10] LABS: Baso % (Auto) 0.4 % (0.0-2.0); Eos # (Auto) 0.1 th/mm3 (0.0-0.4); Eos % (Auto) 2.2 % (0.0-4.0); Hematocrit 23.9 % (39.0-51.0); Hemoglobin 7.6 gm/dL (13.0-17.0); Lymph # (Auto) 1.2 th/mm3 (1.0-4.8); Lymph % (Auto) 19.9 % (9.0-44.0); Mean Corpuscular HGB Conc 31.7 % (32.0-36.0); Mean Corpuscular Hemoglobin 24.6 pg (27.0-34.0); Mean Corpuscular Volume 77.9 fL (80.0-100.0); Mean Platelet Volume 8.5 fL (7.0-11.0); Mono # (Auto) 0.6 th/mm3 (0.0-0.9); Mono % (Auto) 9.6 % (0.0-8.0); Neut % (Auto) 67.9 % (16.0-70.0); Platelet Count 72 th/mm3 (150-450); Red Blood Count 3.07 mil/mm3 (4.50-5.90); Red Cell Distribution Width 21.5 % (11.6-17.2); White Blood Count 5.8 th/mm3 (4.0-11.0)
[2018-01-07 07:25] LABS: INR 1.5 Ratio; Prothrombin Time 14.9 sec (9.8-11.6)
[2018-01-07 07:43] LABS: Alanine Aminotransferase 12 U/L (12-78); Alkaline Phosphatase 98 U/L (45-117); Anion Gap 7 meq/L (5-15); Aspartate Aminotransferase 17 U/L (15-37); Blood Urea Nitrogen 5 mg/dL (7-18); Calcium 7.2 mg/dL (8.5-10.1); Carbon Dioxide 28.4 meq/L (21.0-32.0); Chloride 107 meq/L (98-107); Free T4 (Free Thyroxine) 0.86 ng/dL (0.76-1.46); Glomerular Filtration Rate Greater Than 89 mL/min (>89); Glucose,Random 97 mg/dL (74-106); Magnesium 2.2 mg/dL (1.5-2.5); Phosphorus 3.5 mg/dL (2.5-4.9); Potassium 3.8 meq/L (3.5-5.1); Sodium 142 meq/L (136-145); Thyroid Stimulating Hormone 0.467 uIU/mL (0.358-3.740); Total Protein 5.9 g/dL (6.4-8.2)
[2018-01-07 08:32] LABS: Ovalocytes 1+; Platelet Morphology Normal (Normal)
[2018-01-07] MEDS: rifAXIMin 550 MG Tablet PO SCH ×2 (09:50→20:48)
[2018-01-07] MEDS: Pantoprazole Inj 40 MG Vial IV.PUSH SCH ×2 (09:50→20:49)
[2018-01-07] MEDS: Octreotide Inj 500 MCG in Sodium Chlor 0.9% Inj 500 ML IV.CONT SCH (13:07)
--- NOTE | 2018-01-07 14:21 | P.PNIM ---
Subjective Interval history: 32yM who presented to [facility] complaining of a week and a half of abdominal pain. He states that he's been having diffuse "aching" abdominal pain which is constant, non-radiating, not made better or worse by anything, moderate to severe intensity, associated with abdominal distension. He says that about a week ago he was "throwing up a lot of bright red blood" but has not had this for the past several days, denies bloody/ black/ tarry stools. He also reports 5-7 days of bilateral lower extremity and scrotal edema. He presented to the ED today because he had tactile fever and "I was so weak I couldn't get out of bed". He has a history of hepatitis C and cirrhosis, A fib of uncertain etiology, and hypertension. He does not take any home meds (specifically denies use of anticoagulants/ antiplatelets). SUBJECTIVE: 01/03: Patient reports nausea and anxiety overnight, reports that he has a history of "panic attacks" and is requesting "something to calm me down". No episodes of hematemesis. Received 4U PRBCs in total overnight. 01/04: Patient went for upper endoscopy yesterday afternoon, found to have esophageal varices that were banded. s/p paracentesis this morning. Started on clear liquids. - Follow-up esophageal varices/cirrhosis January 05, 2018-patient seen and examined; denies any abdominal pain. He had banding of esophageal varices yesterday. Patient is also status post paracentesis. Currently afebrile. Tolerating p.o. without any complications nausea and vomiting. 9-9 REMAINS ON OCTREOTIDE DRIP AM LABS IF STABLE DC TO HOME TOMORROW NO ALCOHOL EVER AGAIN INCREASE LACTULOSE FOR ELEVATED AMMONIA LEVEL 9-10 WILL TRANSFUSE 2 UNITS PRBC AND MONITOR DW RN AND PT AND GI AND CM AND FAMILY AM LABS Physical Exam Vital signs: Vital Signs 01/06/18 16:00 01/06/18 20:00 01/07/18 00:00 Temperature 100.8 F H 98.9 F 98.2 F Pulse Rate 97 H 76 56 L Respiratory Rate 18 18 18 Blood Pressure 134/63 127/58 L 122/56 L Pulse Oximetry 95 94 L 97 01/07/18 04:00 01/07/18 08:00 01/07/18 11:30 Temperature 97.9 F 98.0 F Pulse Rate 50 L 54 L Respiratory Rate 18 16 16 Blood Pressure 119/58 L 119/65 Pulse Oximetry 97 97 01/07/18 12:00 Temperature 98.3 F Pulse Rate 55 L Respiratory Rate 18 Blood Pressure 121/67 Pulse Oximetry 97 Intake & Output 01/06/18 01/07/18 01/07/18 18:59 06:59 18:59 Intake Total 600.5 / 600.5 100 / 100 50 / 50 Output Total 425 / 425 750 / 750 1000 / 1000 Balance 175.5 / 175.5 -650 / -650 -950 / -950 Weight 93.7 kg Intake: IV 600.5 / 600.5 100 / 100 50 / 50 SandoSTATIN Inj 500 MCG In NS 500.5 / 500.5 Inj 500 ML @ 25 MCG/HR 25.02 mls/hr IV.CONT .Q20H1M [facility] Rx#: [id number] Zosyn 3.375 GM Premix 50 ML @ 100 / 100 100 / 100 50 / 50 100 mls/hr IV.SIG Q6HR [facility] Rx#: [id number] Output: Urine 425 / 425 750 / 750 1000 / 1000 Other: # Voids 3 Narrative: GENERAL: NAD SKIN: Warm and dry. MULTIPLE [place] HEAD: Normocephalic. EYES: No scleral icterus. No injection or drainage. NECK: Supple, trachea midline. No JVD or lymphadenopathy. CARDIOVASCULAR: Regular rate and rhythm without murmurs, gallops, or rubs. RESPIRATORY: Breath sounds equal bilaterally. No accessory muscle use. GASTROINTESTINAL: Abdomen soft, non-tender, nondistended. MUSCULOSKELETAL: No cyanosis, or edema. BACK: Nontender without obvious deformity. No CVA tenderness. Results - Labs CBC & Chem 7: 01/07/18 06:56 01/07/18 06:56 Laboratory Results - last 24 hr 01/07/18 01/07/18 01/07/18 06:56 06:56 06:56 WBC 5.8 D RBC 3.07 L Hgb 7.6 L Hct 23.9 L MCV 77.9 L MCH 24.6 L MCHC 31.7 L RDW 21.5 H Plt Count 72 L MPV 8.5 Prelim Diff (Auto) Slide review pending Neut % (Auto) 67.9 Lymph % (Auto) 19.9 [place] % (Auto) 9.6 H Eos % (Auto) 2.2 Baso % (Auto) 0.4 Neut # (Auto) 4.0 Lymph # (Auto) 1.2 [place] # (Auto) 0.6 Eos # (Auto) 0.1 Baso # (Auto) 0.0 WBC Differential . Diff Scan Auto diff confirmed Differential Comment . Platelet Estimate Low L Platelet Morphology Normal Ovalocytes 1+ H PT 14.9 H INR 1.5 Sodium 142 Potassium 3.8 Chloride 107 Carbon Dioxide 28.4 Anion Gap 7 BUN 5 L Creatinine 0.74 Estimated GFR Greater than 89 Random Glucose 97 Calcium 7.2 L* Prot Corrected Calcium 7.8 L Phosphorus 3.5 Magnesium 2.2 Total Bilirubin 1.1 H AST 17 ALT 12 Alkaline Phosphatase 98 Total Protein 5.9 L Albumin 2.0 L TSH 0.467 Free T4 0.86 - Imaging Chest X-Ray 01/02/18 12:51 CONCLUSION: Negative examination. Abdomen/Pelvis CT 01/02/18 12:58 CONCLUSION: 1. Cirrhosis and portal hypertension. 2. Abnormal circumferential bowel wall thickening involving the transverse colon and descending colon characteristic of colitis. Chest CT 01/02/18 13:39 CONCLUSION: 1. The study is breathing motion degraded. 2. Mild cardiomegaly. 3. Minimal bibasilar atelectasis. 4. Hiatal hernia. Liver Ultrasound 01/02/18 17:29 CONCLUSION: 1. Enlarged echogenic liver consistent with fatty infiltration and/or diffuse hepatocellular disease. 2. Ascites. 3. Hepatopedal flow within the portal vein. 4. Splenomegaly. 5. Gallbladder wall thickening. If there is clinical concern for acute cholecystitis, a hepatobiliary scan may be helpful to confirm cystic duct obstruction. Paracentesis Ultrasound 01/04/18 00:00 CONCLUSION: Ultrasound-guided thoracentesis as above. - Procedures 9-6 EGD WITH BAND LIGATION OF VARICES DUE TO HEMATEMESIS CHRONIC GASTROPATHY OF ENTIRE STOMACH Erick Bonilla US paracentesis abd w/image Signed EXAM DATE: 01/04/2018 11:43 AM EDT AGE/SEX: 32 years / Male INDICATIONS: Ascites. CLINICAL DATA: This is the patient's subsequent encounter. Patient reports that signs and symptoms have been present for 1 day and indicates a pain score of 0/10. MEDICAL/SURGICAL HISTORY: . Afib. Hepatitis C. HTN. Liver cirrhosis. Substance abuse. None. COMPARISON: [facility] [place], US ABDOMEN LIVER VASC COMP, 01/02/2018. . FLUID: Total volume of 2020 cc of clear, yellow fluid was removed. Fluid was sent to lab for ordered studies. . . TECHNIQUE: Ultrasound guidance for abdominal paracentesis. Paracentesis. The risks, benefits, and alternatives to ultrasound guided paracentesis were explained to the patient in detail including the risk of bleeding and infection. Written and verbal informed consent was obtained. FINDINGS: With the patient on the ultrasound table, ultrasound imaging was used to select the most appropriate approach for paracentesis. No single large pocket could be identified therefore, the largest pocket in the right lower abdominal quadrant was targeted. Overlying skin was prepped and draped in usual sterile fashion and anesthetized with proximally 5 cc 1% Xylocaine. Using direct ultrasound guidance, a 21-gauge micropuncture needle was advanced into the peritoneal cavity. An 018 wire was advanced through the needle over which a 3 4 dilator was placed. 20 cc of clear straw-colored fluid was immediately withdrawn from the 4 [place] dilator. The dilator was then connected to Vacutainer suction and additional 2000 cc of clear yellow fluid was removed. The patient tolerated the procedure well and left the ultrasound suite in stable condition. CONCLUSION: Ultrasound-guided thoracentesis as above. Electronically signed by: Joaquim Marcum MD 01/04/2018 1:48 PM EDT Assessment and Plan - Plan 32-year-old man with Esophageal varices Cirrhosis with ascites History of hepatitis C HEPATIC ENCEPHALOPATHY Status post upper endoscopy with banding of varices Status post paracentesis and monitor culture report Currently on octreotide drip and January 07, 2018 Continue Lasix IV daily, Aldactone, lactulose twice daily, PPI 40 mg every 12 hours, Zosyn Management per gastroenterology INCREASE LACTULOSE Severe anemia Coagulopathy Was transfused couple units of packed red blood cell, vitamin K Continue to monitor WILL TRANSFUSE AGAIN Gram-negative bacteremia On Zosyn and monitor culture report Tobacco abuse Tobacco counseling cessation provided Continue with nicotine patch Alcohol abuse Alcohol counseling cessation provided Continue CIWA protocol, rally pack DVT prophylaxis -SCDs only, ambulate as tolerated, does not need chemical prophylaxis (Caprini VTE 1) Code Status: FULL CODE Discussed Condition With: RN AND PT AND CM AND GI Discharge Planning: PENDING IMPROVEMENT TOMORROW
[2018-01-07] MEDS ORDERED: Sodium Chlor 0.9% Inj 250 ML IV.SIG SCH (15:00)
--- NOTE | 2018-01-07 16:54 | P.PNGI ---
Subjective Interval history: Patient sitting up in bed watching TV. Denies abdominal pain nausea or vomiting. States is tolerating regular diet well. <Naila Hernandez - Last Filed: 01/07/18 17:21> Physical Exam Vital signs: Vital Signs 01/06/18 20:00 01/07/18 00:00 01/07/18 04:00 Temperature 98.9 F 98.2 F 97.9 F Pulse Rate 76 56 L 50 L Respiratory Rate 18 18 18 Blood Pressure 127/58 L 122/56 L 119/58 L Pulse Oximetry 94 L 97 97 01/07/18 08:00 01/07/18 11:30 01/07/18 12:00 Temperature 98.0 F 98.3 F Pulse Rate 54 L 55 L Respiratory Rate 16 16 18 Blood Pressure 119/65 121/67 Pulse Oximetry 97 97 01/07/18 16:00 Temperature 97.6 F Pulse Rate 58 L Respiratory Rate 16 Blood Pressure 124/58 L Pulse Oximetry 98 Intake & Output 01/06/18 01/07/18 01/07/18 18:59 06:59 18:59 Intake Total 600.5 / 600.5 100 / 100 50 / 50 Output Total 425 / 425 750 / 750 1000 / 1000 Balance 175.5 / 175.5 -650 / -650 -950 / -950 Weight 93.7 kg Intake: IV 600.5 / 600.5 100 / 100 50 / 50 SandoSTATIN Inj 500 MCG In NS 500.5 / 500.5 Inj 500 ML @ 25 MCG/HR 25.02 mls/hr IV.CONT .Q20H1M [facility] Rx#: [id number] Zosyn 3.375 GM Premix 50 ML @ 100 / 100 100 / 100 50 / 50 100 mls/hr IV.SIG Q6HR [facility] Rx#: [id number] Output: Urine 425 / 425 750 / 750 1000 / 1000 Other: # Voids 3 - Constitutional no acute distress, cooperative - Routine HEENT Exam Head: Present: normocephalic - Routine Respiratory Exam Present: CTA bilaterally. Absent: rales, respiratory distress, rhonchi, wheezes - Routine Cardiovascular Exam Present: S1, S2 - Routine Abdominal Exam Present: soft, normoactive bowel sounds. Absent: tenderness, guarding, firm - Routine Extremities Exam Present: pulses intact. Absent: edema - Routine Skin Exam Present: dry, warm - Routine Neurological Exam Present: alert, oriented X3 - Detailed Neurological Exam: Coma Scale Eye Opening: Spontaneous Verbal Response: Oriented Motor Response: Obey commands Satish Coma Scale Total: 15 - Routine Psychiatric Exam Present: normal affect, cooperative <Naila Hernandez - Last Filed: 01/07/18 17:21> Vital signs: Vital Signs 01/07/18 00:00 01/07/18 04:00 01/07/18 08:00 Temperature 98.2 F 97.9 F 98.0 F Pulse Rate 56 L 50 L 54 L Respiratory Rate 18 18 16 Blood Pressure 122/56 L 119/58 L 119/65 Pulse Oximetry 97 97 97 01/07/18 11:30 01/07/18 12:00 01/07/18 16:00 Temperature 98.3 F 97.6 F Pulse Rate 58 L 54 L Respiratory Rate 16 18 16 Blood Pressure 121/67 124/58 L Pulse Oximetry 97 98 01/07/18 17:40 01/07/18 17:44 01/07/18 18:00 Temperature 98.5 F 98.0 F Pulse Rate 55 L 57 L Respiratory Rate 18 18 18 Blood Pressure 117/63 117/56 L Pulse Oximetry 99 97 01/07/18 21:16 Temperature 98.1 F Pulse Rate 62 Respiratory Rate 18 Blood Pressure 130/66 Pulse Oximetry Intake & Output 01/07/18 01/07/18 01/08/18 06:59 18:59 06:59 Intake Total 100 / 100 1320.5 / 1320.5 500 / 500 Output Total 750 / 750 2500 / 2500 Balance -650 / -650 -1179.5 / -1179.5 500 / 500 Weight 93.7 kg Intake: IV 100 / 100 600.5 / 600.5 SandoSTATIN Inj 500 MCG In NS 500.5 / 500.5 Inj 500 ML @ 25 MCG/HR 25.02 mls/hr IV.CONT .Q20H1M [facility] Rx#: [id number] Zosyn 3.375 GM Premix 50 ML @ 100 / 100 100 / 100 100 mls/hr IV.SIG Q6HR [facility] Rx#: [id number] Oral 720 / 720 Other 100 / 100 Rbc As-3 Leukoreduced Unit 100 / 100 [id number] Intake (Blood Product) Amt 0 / 0 400 / 400 Rbc As-3 Leukoreduced Unit 0 / 0 [id number] Rbc As-3 Leukoreduced Unit 0 / 0 400 / 400 [id number] Output: Urine 750 / 750 2500 / 2500 Other: # Voids 3 Date of Last Bowel Movement 01/07/18 # Bowel Movements 1 <Adam Sanchez A - Last Filed: 01/07/18 21:41> Results - Labs CBC & Chem 7: 01/07/18 06:56 01/07/18 06:56 Laboratory Results - last 24 hr 01/07/18 01/07/18 01/07/18 06:56 06:56 06:56 WBC 5.8 D RBC 3.07 L Hgb 7.6 L Hct 23.9 L MCV 77.9 L MCH 24.6 L MCHC 31.7 L RDW 21.5 H Plt Count 72 L MPV 8.5 Prelim Diff (Auto) Slide review pending Neut % (Auto) 67.9 Lymph % (Auto) 19.9 [place] % (Auto) 9.6 H Eos % (Auto) 2.2 Baso % (Auto) 0.4 Neut # (Auto) 4.0 Lymph # (Auto) 1.2 [place] # (Auto) 0.6 Eos # (Auto) 0.1 Baso # (Auto) 0.0 WBC Differential . Diff Scan Auto diff confirmed Differential Comment . Platelet Estimate Low L Platelet Morphology Normal Ovalocytes 1+ H PT 14.9 H INR 1.5 Sodium 142 Potassium 3.8 Chloride 107 Carbon Dioxide 28.4 Anion Gap 7 BUN 5 L Creatinine 0.74 Estimated GFR Greater than 89 Random Glucose 97 Calcium 7.2 L* Prot Corrected Calcium 7.8 L Phosphorus 3.5 Magnesium 2.2 Total Bilirubin 1.1 H AST 17 ALT 12 Alkaline Phosphatase 98 Total Protein 5.9 L Albumin 2.0 L TSH 0.467 Free T4 0.86 Blood Type Antibody Screen MTS Gel Crossmatch 01/07/18 01/07/18 15:10 15:10 WBC RBC Hgb Hct MCV MCH MCHC RDW Plt Count MPV Prelim Diff (Auto) Neut % (Auto) Lymph % (Auto) [place] % (Auto) Eos % (Auto) Baso % (Auto) Neut # (Auto) Lymph # (Auto) [place] # (Auto) Eos # (Auto) Baso # (Auto) WBC Differential Diff Scan Differential Comment Platelet Estimate Platelet Morphology Ovalocytes PT INR Sodium Potassium Chloride Carbon Dioxide Anion Gap BUN Creatinine Estimated GFR Random Glucose Calcium Prot Corrected Calcium Phosphorus Magnesium Total Bilirubin AST ALT Alkaline Phosphatase Total Protein Albumin TSH Free T4 Blood Type A Negative Antibody Screen Negative MTS Gel Crossmatch See Detail - Procedures 9-6 EGD WITH BAND LIGATION OF VARICES DUE TO HEMATEMESIS CHRONIC GASTROPATHY OF ENTIRE STOMACH Erick Bonilla US paracentesis abd w/image Signed EXAM DATE: 01/04/2018 11:43 AM EDT AGE/SEX: 32 years / Male INDICATIONS: Ascites. CLINICAL DATA: This is the patient's subsequent encounter. Patient reports that signs and symptoms have been present for 1 day and indicates a pain score of 0/10. MEDICAL/SURGICAL HISTORY: . Afib. Hepatitis C. HTN. Liver cirrhosis. Substance abuse. None. COMPARISON: [facility] [place] ABDOMEN LIVER VASC COMP, 01/02/2018. . FLUID: Total volume of 2020 cc of clear, yellow fluid was removed. Fluid was sent to lab for ordered studies. . . TECHNIQUE: Ultrasound guidance for abdominal paracentesis. Paracentesis. The risks, benefits, and alternatives to ultrasound guided paracentesis were explained to the patient in detail including the risk of bleeding and infection. Written and verbal informed consent was obtained. FINDINGS: With the patient on the ultrasound table, ultrasound imaging was used to select the most appropriate approach for paracentesis. No single large pocket could be identified therefore, the largest pocket in the right lower abdominal quadrant was targeted. Overlying skin was prepped and draped in usual sterile fashion and anesthetized with proximally 5 cc 1% Xylocaine. Using direct ultrasound guidance, a 21-gauge micropuncture needle was advanced into the peritoneal cavity. An 018 wire was advanced through the needle over which a 3 4 dilator was placed. 20 cc of clear straw-colored fluid was immediately withdrawn from the 4 [place] dilator. The dilator was then connected to Vacutainer suction and additional 2000 cc of clear yellow fluid was removed. The patient tolerated the procedure well and left the ultrasound suite in stable condition. CONCLUSION: Ultrasound-guided thoracentesis as above. Electronically signed by: Joaquim Marcum MD 01/04/2018 1:48 PM EDT <Naila Hernandez - Last Filed: 01/07/18 17:21> - Labs CBC & Chem 7: 01/07/18 06:56 01/07/18 06:56 Laboratory Results - last 24 hr 01/07/18 01/07/18 01/07/18 06:56 06:56 06:56 WBC 5.8 D RBC 3.07 L Hgb 7.6 L Hct 23.9 L MCV 77.9 L MCH 24.6 L MCHC 31.7 L RDW 21.5 H Plt Count 72 L MPV 8.5 Prelim Diff (Auto) Slide review pending Neut % (Auto) 67.9 Lymph % (Auto) 19.9 [place] % (Auto) 9.6 H Eos % (Auto) 2.2 Baso % (Auto) 0.4 Neut # (Auto) 4.0 Lymph # (Auto) 1.2 [place] # (Auto) 0.6 Eos # (Auto) 0.1 Baso # (Auto) 0.0 WBC Differential . Diff Scan Auto diff confirmed Differential Comment . Platelet Estimate Low L Platelet Morphology Normal Ovalocytes 1+ H PT 14.9 H INR 1.5 Sodium Potassium Chloride Carbon Dioxide Anion Gap BUN Creatinine Estimated GFR Random Glucose Hemoglobin A1c 5.3 Calcium Prot Corrected Calcium Phosphorus Magnesium Total Bilirubin AST ALT Alkaline Phosphatase Total Protein Albumin TSH Free T4 Blood Type Blood Type Recheck Rho(D) Type Weak D (Du) Antibody Screen MTS Gel Crossmatch 01/07/18 01/07/18 01/07/18 06:56 15:10 15:10 WBC RBC Hgb Hct MCV MCH MCHC RDW Plt Count MPV Prelim Diff (Auto) Neut % (Auto) Lymph % (Auto) [place] % (Auto) Eos % (Auto) Baso % (Auto) Neut # (Auto) Lymph # (Auto) [place] # (Auto) Eos # (Auto) Baso # (Auto) WBC Differential Diff Scan Differential Comment Platelet Estimate Platelet Morphology Ovalocytes PT INR Sodium 142 Potassium 3.8 Chloride 107 Carbon Dioxide 28.4 Anion Gap 7 BUN 5 L Creatinine 0.74 Estimated GFR Greater than 89 Random Glucose 97 Hemoglobin A1c Calcium 7.2 L* Prot Corrected Calcium 7.8 L Phosphorus 3.5 Magnesium 2.2 Total Bilirubin 1.1 H AST 17 ALT 12 Alkaline Phosphatase 98 Total Protein 5.9 L Albumin 2.0 L TSH 0.467 Free T4 0.86 Blood Type Cancelled A Negative Blood Type Recheck Cancelled Rho(D) Type Cancelled Weak D (Du) Cancelled Antibody Screen Cancelled Negative MTS Gel Crossmatch See Detail <Adam Sanchez - Last Filed: 01/07/18 21:41> Assessment and Plan - Plan - Hematemesis/esophageal varices- No more bleeding, had brown BM today S/P EGD/ banding on 01/04/18, I don't have official report one episode of hematemesis (bright red) a week ago but non after. Denies bloody or black tarry stools. States that he has been having diffused constant abdominal pain. hgb on arrival was 4.8, today this is 7.4 s/p blood transfusion (4 units) Pt hasn't been following with GI provider as an OP. Denies daily alcohol intake, but admits to drinking 2 weeks ago then 4 days ago, a large amount (not able to specify). Denies current drug use. Denies blood thinner. PPI - Cirrhosis- MELD score 15, LFTs wnl. hx of alcohol and hep-C, hasn't been following with GI provider Abdomen/Pelvis CT 01/02/18 Cirrhosis and portal hypertension. Abnormal circumferential bowel wall thickening involving the transverse colon and descending colon characteristic of colitis. Liver Ultrasound 01/02/18 Enlarged echogenic liver consistent with fatty infiltration and/or diffuse hepatocellular disease. Ascites. Hepatopetal flow within the portal vein. Splenomegaly. Gallbladder wall thickening. If there is clinical concern for acute cholecystitis, a hepatobiliary scan may be helpful to confirm cystic duct obstruction. - ? acute alcohol hepatitis- DF is 20, pt cont. to drink but not daily, admits to drinking 4 days ago (large amount) - Ascites- S/P paracentesis today 2 L removed, no indication of infection so far. Zosyn. - High bilirubin- Trending down - hep-C (s/p unsuccessful tx in the past X 2, not sure what type)- discuss tx as an OP - Sepsis- ? SBP - Coagulopathy/ thrombocytopenia- Secondary to above - High ammonia- 61 on lactulose - Colitis on CT- abx, will need colonoscopy at some point 01/07/18- Patient sitting up in bed. Denies abdominal pain or tenderness. Denies blood noted in stool. Tolerating po intake without noted nausea or vomiting . EGD with banding of esophageal varices done on 01/04/18 findings include chronic gastropathy in the entire stomach, normal duodenal mucosa in the duodenal bulb,and 3rd part duodenum, retroflexion was performed and was normal. No signs of GI bleeding. Patient on Octeotride drip. Labs reviewed today: Wbc 5.8, Hgb 7.6, Hct 23.9, Plt 72. Plan: -Regular diet -Transfuse as needed -Alcohol cessation advised -Supportive care -Further recommendations to follow Patient seen and examined by Dr. Sanchez and myself. This note is written on his behalf. <Naila Hernandez - Last Filed: 01/07/18 17:21> - Attending Attestation Stable from GI point of view. Will need outpatient EGD after 4-6 weeks. Will sign off for now. <Adam Sanchez - Last Filed: 01/07/18 21:41>
[2018-01-07 21:05] LABS: Hemoglobin A1c 5.3 % (4.3-6.0)
[2018-01-08] MEDS: Piperacil/Tazo 3.375 GM Premix 50 ML IV.SIG SCH ×2 (00:19→06:03)
[2018-01-08] MEDS: ALPRAZolam 0.5 MG Tablet PO PRN (06:42)
[2018-01-08 09:17] LABS: Baso % (Auto) 0.4 % (0.0-2.0); Eos # (Auto) 0.2 th/mm3 (0.0-0.4); Eos % (Auto) 4.1 % (0.0-4.0); Hematocrit 28.4 % (39.0-51.0); Lymph % (Auto) 23.4 % (9.0-44.0); Mean Corpuscular HGB Conc 31.8 % (32.0-36.0); Mean Corpuscular Hemoglobin 25.4 pg (27.0-34.0); Mean Corpuscular Volume 79.9 fL (80.0-100.0); Mean Platelet Volume 8.7 fL (7.0-11.0); Mono # (Auto) 0.4 th/mm3 (0.0-0.9); Mono % (Auto) 8.9 % (0.0-8.0); Neut # (Auto) 2.7 th/mm3 (1.8-7.7); Neut % (Auto) 63.2 % (16.0-70.0); Platelet Count 71 th/mm3 (150-450); Red Blood Count 3.56 mil/mm3 (4.50-5.90); Red Cell Distribution Width 20.9 % (11.6-17.2); White Blood Count 4.2 th/mm3 (4.0-11.0)
[2018-01-08 09:22] LABS: INR 1.5 Ratio; Prothrombin Time 14.8 sec (9.8-11.6)
[2018-01-08] MEDS: Pantoprazole Inj 40 MG Vial IV.PUSH SCH (09:34)
[2018-01-08] MEDS: rifAXIMin 550 MG Tablet PO SCH (09:34)
[2018-01-08 09:49] LABS: Alanine Aminotransferase 11 U/L (12-78); Albumin 2.2 g/dL (3.4-5.0); Alkaline Phosphatase 96 U/L (45-117); Anion Gap 8 meq/L (5-15); Aspartate Aminotransferase 18 U/L (15-37); Blood Urea Nitrogen 7 mg/dL (7-18); Calcium 7.2 mg/dL (8.5-10.1); Carbon Dioxide 26.8 meq/L (21.0-32.0); Chloride 105 meq/L (98-107); Glomerular Filtration Rate Greater Than 89 mL/min (>89); Glucose,Random 81 mg/dL (74-106); Magnesium 1.9 mg/dL (1.5-2.5); Phosphorus 3.7 mg/dL (2.5-4.9); Potassium 3.5 meq/L (3.5-5.1); Sodium 140 meq/L (136-145)
[2018-01-08 10:11] LABS: Ovalocytes 1+
--- NOTE | 2018-01-08 10:42 | P.PNIM ---
Subjective Interval history: 32yM who presented to [facility] complaining of a week and a half of abdominal pain. He states that he's been having diffuse "aching" abdominal pain which is constant, non-radiating, not made better or worse by anything, moderate to severe intensity, associated with abdominal distension. He says that about a week ago he was "throwing up a lot of bright red blood" but has not had this for the past several days, denies bloody/ black/ tarry stools. He also reports 5-7 days of bilateral lower extremity and scrotal edema. He presented to the ED today because he had tactile fever and "I was so weak I couldn't get out of bed". He has a history of hepatitis C and cirrhosis, A fib of uncertain etiology, and hypertension. He does not take any home meds (specifically denies use of anticoagulants/ antiplatelets). SUBJECTIVE: 01/03: Patient reports nausea and anxiety overnight, reports that he has a history of "panic attacks" and is requesting "something to calm me down". No episodes of hematemesis. Received 4U PRBCs in total overnight. 01/04: Patient went for upper endoscopy yesterday afternoon, found to have esophageal varices that were banded. s/p paracentesis this morning. Started on clear liquids. - Follow-up esophageal varices/cirrhosis January 05, 2018-patient seen and examined; denies any abdominal pain. He had banding of esophageal varices yesterday. Patient is also status post paracentesis. Currently afebrile. Tolerating p.o. without any complications nausea and vomiting. 9-9 REMAINS ON OCTREOTIDE DRIP AM LABS IF STABLE DC TO HOME TOMORROW NO ALCOHOL EVER AGAIN INCREASE LACTULOSE FOR ELEVATED AMMONIA LEVEL 9-10 WILL TRANSFUSE 2 UNITS PRBC AND MONITOR DW RN AND PT AND GI AND CM AND FAMILY AM LABS - HEMOGLOBIN IS STABLE AFTER TRANSFUSION DC TO HOME FOLLOW UP WITH GI IN 1 MONTH DC HOME SEE MED REC AMMONIA ELEVATED BUT ORIENTED X3 Physical Exam Vital signs: Vital Signs 01/07/18 11:30 01/07/18 12:00 01/07/18 16:00 Temperature 98.3 F 97.6 F Pulse Rate 58 L 54 L Respiratory Rate 18 16 Blood Pressure 121/67 124/58 L Pulse Oximetry 97 98 01/07/18 17:40 01/07/18 17:44 01/07/18 18:00 Temperature 98.5 F 98.0 F Pulse Rate 55 L 57 L Respiratory Rate 18 18 18 Blood Pressure 117/63 117/56 L Pulse Oximetry 99 97 01/07/18 20:00 01/07/18 21:16 01/07/18 21:51 Temperature 98.2 F 98.1 F 98.3 F Pulse Rate 60 62 62 Respiratory Rate 18 18 18 Blood Pressure 135/63 130/66 121/58 L Pulse Oximetry 99 98 01/08/18 00:00 01/08/18 04:00 01/08/18 08:00 Temperature 98.6 F 97.9 F 98.0 F Pulse Rate 58 L 53 L 53 L Respiratory Rate 20 20 20 Blood Pressure 134/63 132/58 L 134/68 Pulse Oximetry 98 98 97 01/08/18 09:32 Temperature Pulse Rate Respiratory Rate 18 Blood Pressure Pulse Oximetry Intake & Output 01/07/18 01/08/18 01/08/18 18:59 06:59 18:59 Intake Total 1320.5 / 1320.5 1340 / 1340 Output Total 2500 / 2500 Balance -1179.5 / -1179.5 1340 / 1340 Weight 94 kg Intake: IV 600.5 / 600.5 100 / 100 SandoSTATIN Inj 500 MCG In NS 500.5 / 500.5 Inj 500 ML @ 25 MCG/HR 25.02 mls/hr IV.CONT .Q20H1M [facility] Rx#: [id number] Zosyn 3.375 GM Premix 50 ML @ 100 / 100 100 / 100 100 mls/hr IV.SIG Q6HR [facility] Rx#: [id number] Oral 720 / 720 240 / 240 Other 200 / 200 Rbc As-3 Leukoreduced Unit 100 / 100 [id number] Rbc As-3 Leukoreduced Unit 100 / 100 [id number] Intake (Blood Product) Amt 0 / 0 800 / 800 Rbc As-3 Leukoreduced Unit 400 / 400 [id number] Rbc As-3 Leukoreduced Unit 0 / 0 400 / 400 [id number] Output: Urine 2500 / 2500 Other: # Voids 3 2 Date of Last Bowel Movement 01/07/18 01/07/18 # Bowel Movements 1 Narrative: GENERAL: NAD SKIN: Warm and dry. MULTIPLE TATTOOS HEAD: Normocephalic. EYES: No scleral icterus. No injection or drainage. NECK: Supple, trachea midline. No JVD or lymphadenopathy. CARDIOVASCULAR: Regular rate and rhythm without murmurs, gallops, or rubs. RESPIRATORY: Breath sounds equal bilaterally. No accessory muscle use. GASTROINTESTINAL: Abdomen soft, non-tender, nondistended. MUSCULOSKELETAL: No cyanosis, or edema. BACK: Nontender without obvious deformity. No CVA tenderness. Results - Labs CBC & Chem 7: 01/08/18 08:23 01/08/18 08:23 Laboratory Results - last 24 hr 01/07/18 01/07/18 01/07/18 06:56 15:10 15:10 WBC RBC Hgb Hct MCV MCH MCHC RDW Plt Count MPV Prelim Diff (Auto) Neut % (Auto) Lymph % (Auto) [place] % (Auto) Eos % (Auto) Baso % (Auto) Neut # (Auto) Lymph # (Auto) [place] # (Auto) Eos # (Auto) Baso # (Auto) WBC Differential Diff Scan Differential Comment Platelet Estimate Platelet Morphology Ovalocytes PT INR Sodium Potassium Chloride Carbon Dioxide Anion Gap BUN Creatinine Estimated GFR Random Glucose Hemoglobin A1c 5.3 Calcium Prot Corrected Calcium Phosphorus Magnesium Total Bilirubin AST ALT Alkaline Phosphatase Ammonia Total Protein Albumin Blood Type Cancelled A Negative Blood Type Recheck Cancelled Rho(D) Type Cancelled Weak D (Du) Cancelled Antibody Screen Cancelled Negative MTS Gel Crossmatch See Detail 01/08/18 01/08/18 01/08/18 08:23 08:23 08:23 WBC 4.2 RBC 3.56 L Hgb 9.0 L Hct 28.4 L MCV 79.9 L MCH 25.4 L MCHC 31.8 L RDW 20.9 H Plt Count 71 L MPV 8.7 Prelim Diff (Auto) Slide review pending Neut % (Auto) 63.2 Lymph % (Auto) 23.4 [place] % (Auto) 8.9 H Eos % (Auto) 4.1 H Baso % (Auto) 0.4 Neut # (Auto) 2.7 Lymph # (Auto) 1.0 [place] # (Auto) 0.4 Eos # (Auto) 0.2 Baso # (Auto) 0.0 WBC Differential . Diff Scan Auto diff confirmed Differential Comment . Platelet Estimate Low L Platelet Morphology Enlarged H Ovalocytes 1+ H PT 14.8 H INR 1.5 Sodium 140 Potassium 3.5 Chloride 105 Carbon Dioxide 26.8 Anion Gap 8 BUN 7 Creatinine 0.79 Estimated GFR Greater than 89 Random Glucose 81 Hemoglobin A1c Calcium 7.2 L* Prot Corrected Calcium 7.8 L Phosphorus 3.7 Magnesium 1.9 Total Bilirubin 1.7 H AST 18 ALT 11 L Alkaline Phosphatase 96 Ammonia Total Protein 6.0 L Albumin 2.2 L Blood Type Blood Type Recheck Rho(D) Type Weak D (Du) Antibody Screen MTS Gel Crossmatch 01/08/18 08:23 WBC RBC Hgb Hct MCV MCH MCHC RDW Plt Count MPV Prelim Diff (Auto) Neut % (Auto) Lymph % (Auto) [place] % (Auto) Eos % (Auto) Baso % (Auto) Neut # (Auto) Lymph # (Auto) [place] # (Auto) Eos # (Auto) Baso # (Auto) WBC Differential Diff Scan Differential Comment Platelet Estimate Platelet Morphology Ovalocytes PT INR Sodium Potassium Chloride Carbon Dioxide Anion Gap BUN Creatinine Estimated GFR Random Glucose Hemoglobin A1c Calcium Prot Corrected Calcium Phosphorus Magnesium Total Bilirubin AST ALT Alkaline Phosphatase Ammonia 89 H Total Protein Albumin Blood Type Blood Type Recheck Rho(D) Type Weak D (Du) Antibody Screen MTS Gel Crossmatch - Imaging Chest X-Ray 01/02/18 12:51 CONCLUSION: Negative examination. Abdomen/Pelvis CT 01/02/18 12:58 CONCLUSION: 1. Cirrhosis and portal hypertension. 2. Abnormal circumferential bowel wall thickening involving the transverse colon and descending colon characteristic of colitis. Chest CT 01/02/18 13:39 CONCLUSION: 1. The study is breathing motion degraded. 2. Mild cardiomegaly. 3. Minimal bibasilar atelectasis. 4. Hiatal hernia. Liver Ultrasound 01/02/18 17:29 CONCLUSION: 1. Enlarged echogenic liver consistent with fatty infiltration and/or diffuse hepatocellular disease. 2. Ascites. 3. Hepatopedal flow within the portal vein. 4. Splenomegaly. 5. Gallbladder wall thickening. If there is clinical concern for acute cholecystitis, a hepatobiliary scan may be helpful to confirm cystic duct obstruction. Paracentesis Ultrasound 01/04/18 00:00 CONCLUSION: Ultrasound-guided thoracentesis as above. - Procedures 9-6 EGD WITH BAND LIGATION OF VARICES DUE TO HEMATEMESIS CHRONIC GASTROPATHY OF ENTIRE STOMACH Erick Bonilla paracentesis abd w/image Signed EXAM DATE: 01/04/2018 11:43 AM EDT AGE/SEX: 32 years / Male INDICATIONS: Ascites. CLINICAL DATA: This is the patient's subsequent encounter. Patient reports that signs and symptoms have been present for 1 day and indicates a pain score of 0/10. MEDICAL/SURGICAL HISTORY: . Afib. Hepatitis C. HTN. Liver cirrhosis. Substance abuse. None. COMPARISON: [facility] [place], ABDOMEN LIVER VASC COMP, 01/02/2018. . FLUID: Total volume of 2020 cc of clear, yellow fluid was removed. Fluid was sent to lab for ordered studies. . . TECHNIQUE: Ultrasound guidance for abdominal paracentesis. Paracentesis. The risks, benefits, and alternatives to ultrasound guided paracentesis were explained to the patient in detail including the risk of bleeding and infection. Written and verbal informed consent was obtained. FINDINGS: With the patient on the ultrasound table, ultrasound imaging was used to select the most appropriate approach for paracentesis. No single large pocket could be identified therefore, the largest pocket in the right lower abdominal quadrant was targeted. Overlying skin was prepped and draped in usual sterile fashion and anesthetized with proximally 5 cc 1% Xylocaine. Using direct ultrasound guidance, a 21-gauge micropuncture needle was advanced into the peritoneal cavity. An 018 wire was advanced through the needle over which a 3 4 dilator was placed. 20 cc of clear straw-colored fluid was immediately withdrawn from the 4 [place] dilator. The dilator was then connected to Vacutainer suction and additional 2000 cc of clear yellow fluid was removed. The patient tolerated the procedure well and left the ultrasound suite in stable condition. CONCLUSION: Ultrasound-guided thoracentesis as above. Electronically signed by: Joaquim Marcum MD 01/04/2018 1:48 PM EDT Assessment and Plan - Plan 32-year-old man with Esophageal varices Cirrhosis with ascites History of hepatitis C HEPATIC ENCEPHALOPATHY Status post upper endoscopy with banding of varices Status post paracentesis and monitor culture report Currently on octreotide drip and January 07, 2018 Continue Lasix IV daily, Aldactone, lactulose twice daily, PPI 40 mg every 12 hours, Zosyn Management per gastroenterology INCREASE LACTULOSE Severe anemia Coagulopathy Was transfused couple units of packed red blood cell, vitamin K Continue to monitor WILL TRANSFUSE AGAIN Gram-negative bacteremia On Zosyn and monitor culture report Tobacco abuse Tobacco counseling cessation provided Continue with nicotine patch Alcohol abuse Alcohol counseling cessation provided Continue CIWA protocol, rally pack DVT prophylaxis -SCDs only, ambulate as tolerated, does not need chemical prophylaxis (Caprini VTE 1) DC TO HOME TODAY FOLLOW UP WITH GI IN 1 MONTH Code Status: FULL CODE Discussed Condition With: SANJIV RN AND PT Discharge Planning: DC TO HOME TODAY
--- NOTE | 2018-01-08 10:57 | P.DS ---
Date of admission: 01/02/18 15:08 Primary care physician: UNKNOWN Attending physician on discharge: Julian Mendiola Anticipated date of discharge: 01/08/18 Brief History from admission: 32yM who presented to [facility] complaining of a week and a half of abdominal pain. He states that he's been having diffuse "aching" abdominal pain which is constant, non-radiating, not made better or worse by anything, moderate to severe intensity, associated with abdominal distension. He says that about a week ago he was "throwing up a lot of bright red blood" but has not had this for the past several days, denies bloody/ black/ tarry stools. He also reports 5-7 days of bilateral lower extremity and scrotal edema. He presented to the ED today because he had tactile fever and "I was so weak I couldn't get out of bed". He has a history of hepatitis C and cirrhosis, A fib of uncertain etiology, and hypertension. He does not take any home meds (specifically denies use of anticoagulants/ antiplatelets). Family history is non-contributory. Patient update on day of discharge: 32yM who presented to [facility] complaining of a week and a half of abdominal pain. He states that he's been having diffuse "aching" abdominal pain which is constant, non-radiating, not made better or worse by anything, moderate to severe intensity, associated with abdominal distension. He says that about a week ago he was "throwing up a lot of bright red blood" but has not had this for the past several days, denies bloody/ black/ tarry stools. He also reports 5-7 days of bilateral lower extremity and scrotal edema. He presented to the ED today because he had tactile fever and "I was so weak I couldn't get out of bed". He has a history of hepatitis C and cirrhosis, A fib of uncertain etiology, and hypertension. He does not take any home meds (specifically denies use of anticoagulants/ antiplatelets). SUBJECTIVE: 01/03: Patient reports nausea and anxiety overnight, reports that he has a history of "panic attacks" and is requesting "something to calm me down". No episodes of hematemesis. Received 4U PRBCs in total overnight. 01/04: Patient went for upper endoscopy yesterday afternoon, found to have esophageal varices that were banded. s/p paracentesis this morning. Started on clear liquids. 98 Follow-up esophageal varices/cirrhosis January 05, 2018-patient seen and examined; denies any abdominal pain. He had banding of esophageal varices yesterday. Patient is also status post paracentesis. Currently afebrile. Tolerating p.o. without any complications nausea and vomiting. 9-9 REMAINS ON OCTREOTIDE DRIP AM LABS IF STABLE DC TO HOME TOMORROW NO ALCOHOL EVER AGAIN INCREASE LACTULOSE FOR ELEVATED AMMONIA LEVEL 9-10 WILL TRANSFUSE 2 UNITS PRBC AND MONITOR DW RN AND PT AND GI AND CM AND FAMILY AM LABS - HEMOGLOBIN IS STABLE AFTER TRANSFUSION DC TO HOME FOLLOW UP WITH GI IN 1 MONTH DC HOME SEE MED REC AMMONIA ELEVATED BUT ORIENTED X3 DS: Diagnosis - Discharge Diagnosis (1) Anemia requiring transfusions Status: Acute (2) Ascites of liver Status: Acute (3) Colitis Status: Acute (4) Esophageal varices in cirrhosis Status: Acute (5) GI bleed Status: Acute (6) Hematemesis Status: Acute (7) Sepsis Status: Acute (8) Tobacco use disorder Status: Acute DS: Medications - Discharge Medications Prescriptions: alprazolam [Xanax] 0.5 mg PO Q6HR PRN #30 tab PRN Reason: Anxiety amoxicillin-pot clavulanate [Augmentin] 1 tab PO BID #20 tab furosemide [Lasix] 40 mg PO DAILY #30 tab lactulose 30 ml PO QID #3600 ml nicotine 1 patch TRANSDERMAL DAILY #30 ea oxycodone 5 mg PO Q6H PRN #12 tab PRN Reason: SEVERE PAIN pantoprazole [Protonix] 40 mg PO BID #60 tab rifaximin [Xifaxan] 550 mg PO Q12HR #60 tab spironolactone 100 mg PO DAILY #30 tab DS: Summary Hospital Course: 32yM who presented to [facility] complaining of a week and a half of abdominal pain. He states that he's been having diffuse "aching" abdominal pain which is constant, non-radiating, not made better or worse by anything, moderate to severe intensity, associated with abdominal distension. He says that about a week ago he was "throwing up a lot of bright red blood" but has not had this for the past several days, denies bloody/ black/ tarry stools. He also reports 5-7 days of bilateral lower extremity and scrotal edema. He presented to the ED today because he had tactile fever and "I was so weak I couldn't get out of bed". He has a history of hepatitis C and cirrhosis, A fib of uncertain etiology, and hypertension. He does not take any home meds (specifically denies use of anticoagulants/ antiplatelets). SUBJECTIVE: 01/03: Patient reports nausea and anxiety overnight, reports that he has a history of "panic attacks" and is requesting "something to calm me down". No episodes of hematemesis. Received 4U PRBCs in total overnight. 01/04: Patient went for upper endoscopy yesterday afternoon, found to have esophageal varices that were banded. s/p paracentesis this morning. Started on clear liquids. 9-8 Follow-up esophageal varices/cirrhosis January 05, 2018-patient seen and examined; denies any abdominal pain. He had banding of esophageal varices yesterday. Patient is also status post paracentesis. Currently afebrile. Tolerating p.o. without any complications nausea and vomiting. 9-9 REMAINS ON OCTREOTIDE DRIP AM LABS IF STABLE DC TO HOME TOMORROW NO ALCOHOL EVER AGAIN INCREASE LACTULOSE FOR ELEVATED AMMONIA LEVEL 9-10 WILL TRANSFUSE 2 UNITS PRBC AND MONITOR DW RN AND PT AND GI AND CM AND FAMILY AM LABS 9-11 HEMOGLOBIN IS STABLE AFTER TRANSFUSION DC TO HOME FOLLOW UP WITH GI IN 1 MONTH DC HOME SEE MED REC AMMONIA ELEVATED BUT ORIENTED X3 E-FORCSE Prescription Drug Monitoring Database has been queried and verified prior to prescribing the controlled substance. Acute pain exception. This patient has normal, predicted, physiological, and time limited response to an adverse mechanical stimulus associated with surgery, trauma, or acute illness as described in my notes. There is a lack of alternative treatment options other than to include the prescribed narcotic treatment for this condition. last narcotic or benzo script in october 2017 will give rx - Time Spent with Patient Total time spent providing and/or coordinating discharge services: Greater than 30 minutes - Quality: VTE Deep Vein Thrombosis/Pulmonary Embolism Present on Admission: No Exam Vital signs: Vital Signs 01/07/18 11:30 01/07/18 12:00 01/07/18 16:00 Temperature 98.3 F 97.6 F Pulse Rate 58 L 54 L Respiratory Rate 16 18 16 Blood Pressure 121/67 124/58 L Pulse Oximetry 97 98 01/07/18 17:40 01/07/18 17:44 01/07/18 18:00 Temperature 98.5 F 98.0 F Pulse Rate 55 L 57 L Respiratory Rate 18 18 18 Blood Pressure 117/63 117/56 L Pulse Oximetry 99 97 01/07/18 20:00 01/07/18 21:16 01/07/18 21:51 Temperature 98.2 F 98.1 F 98.3 F Pulse Rate 60 62 62 Respiratory Rate 18 18 18 Blood Pressure 135/63 130/66 121/58 L Pulse Oximetry 99 98 01/08/18 00:00 01/08/18 04:00 01/08/18 08:00 Temperature 98.6 F 97.9 F 98.0 F Pulse Rate 58 L 53 L 53 L Respiratory Rate 20 20 20 Blood Pressure 134/63 132/58 L 134/68 Pulse Oximetry 98 98 97 01/08/18 09:32 Temperature Pulse Rate Respiratory Rate 18 Blood Pressure Pulse Oximetry Intake & Output 01/07/18 01/08/18 01/08/18 18:59 06:59 18:59 Intake Total 1320.5 / 1320.5 1340 / 1340 Output Total 2500 / 2500 Balance -1179.5 / -1179.5 1340 / 1340 Weight 94 kg Intake: IV 600.5 / 600.5 100 / 100 SandoSTATIN Inj 500 MCG In NS 500.5 / 500.5 Inj 500 ML @ 25 MCG/HR 25.02 mls/hr IV.CONT .Q20H1M [facility] Rx#: [id number] Zosyn 3.375 GM Premix 50 ML @ 100 / 100 100 / 100 100 mls/hr IV.SIG Q6HR [facility] Rx#: [id number] Oral 720 / 720 240 / 240 Other 200 / 200 Rbc As-3 Leukoreduced Unit 100 / 100 [id number] Rbc As-3 Leukoreduced Unit 100 / 100 [id number] Intake (Blood Product) Amt 0 / 0 800 / 800 Rbc As-3 Leukoreduced Unit 400 / 400 [id number] Rbc As-3 Leukoreduced Unit 0 / 0 400 / 400 [id number] Output: Urine 2500 / 2500 Other: # Voids 3 2 Date of Last Bowel Movement 01/07/18 01/07/18 # Bowel Movements 1 Narrative: GENERAL: NAD SKIN: Warm and dry. MULTIPLE TATTOOS HEAD: Normocephalic. EYES: No scleral icterus. No injection or drainage. NECK: Supple, trachea midline. No JVD or lymphadenopathy. CARDIOVASCULAR: Regular rate and rhythm without murmurs, gallops, or rubs. RESPIRATORY: Breath sounds equal bilaterally. No accessory muscle use. GASTROINTESTINAL: Abdomen soft, non-tender, nondistended. MUSCULOSKELETAL: No cyanosis, or edema. BACK: Nontender without obvious deformity. No CVA tenderness. Results Procedures completed during hospitalization: 9-6 EGD WITH BAND LIGATION OF VARICES DUE TO HEMATEMESIS CHRONIC GASTROPATHY OF ENTIRE STOMACH Erick Bonilla paracentesis abd w/image Signed EXAM DATE: 01/04/2018 11:43 AM EDT AGE/SEX: 32 years / Male INDICATIONS: Ascites. CLINICAL DATA: This is the patient's subsequent encounter. Patient reports that signs and symptoms have been present for 1 day and indicates a pain score of 0/10. MEDICAL/SURGICAL HISTORY: . Afib. Hepatitis C. HTN. Liver cirrhosis. Substance abuse. None. COMPARISON: [facility] – [place], ABDOMEN LIVER VASC COMP, 01/02/2018. . FLUID: Total volume of 2020 cc of clear, yellow fluid was removed. Fluid was sent to lab for ordered studies. . . TECHNIQUE: Ultrasound guidance for abdominal paracentesis. Paracentesis. The risks, benefits, and alternatives to ultrasound guided paracentesis were explained to the patient in detail including the risk of bleeding and infection. Written and verbal informed consent was obtained. FINDINGS: With the patient on the ultrasound table, ultrasound imaging was used to select the most appropriate approach for paracentesis. No single large pocket could be identified therefore, the largest pocket in the right lower abdominal quadrant was targeted. Overlying skin was prepped and draped in usual sterile fashion and anesthetized with proximally 5 cc 1% Xylocaine. Using direct ultrasound guidance, a 21-gauge micropuncture needle was advanced into the peritoneal cavity. An 018 wire was advanced through the needle over which a 3 4 dilator was placed. 20 cc of clear straw-colored fluid was immediately withdrawn from the 4 Latvian dilator. The dilator was then connected to Vacutainer suction and additional 2000 cc of clear yellow fluid was removed. The patient tolerated the procedure well and left the ultrasound suite in stable condition. CONCLUSION: Ultrasound-guided thoracentesis as above. Electronically signed by: Joaquim Marcum MD 01/04/2018 1:48 PM EDT Completed studies during hospitalization: Laboratory Results CBC w Diff Slide review pending 01/02/18 13:18 WBC 4.2 th/mm3 (4.0-11.0) 01/08/18 08:23 RBC 3.56 mil/mm3 (4.50-5.90) L 01/08/18 08:23 Hgb 9.0 gm/dL (13.0-17.0) L 01/08/18 08:23 Hct 28.4 % (39.0-51.0) L 01/08/18 08:23 MCV 79.9 fL (80.0-100.0) L 01/08/18 08:23 MCH 25.4 pg (27.0-34.0) L 01/08/18 08:23 MCHC 31.8 % (32.0-36.0) L 01/08/18 08:23 RDW 20.9 % (11.6-17.2) H 01/08/18 08:23 Plt Count 71 th/mm3 (150-450) L 01/08/18 08:23 MPV 8.7 fL (7.0-11.0) 01/08/18 08:23 Prelim Diff (Auto) Slide review pending 01/08/18 08:23 Neut % (Auto) 63.2 % (16.0-70.0) 01/08/18 08:23 Lymph % (Auto) 23.4 % (9.0-44.0) 01/08/18 08:23 Elbert % (Auto) 8.9 % (0.0-8.0) H 01/08/18 08:23 Eos % (Auto) 4.1 % (0.0-4.0) H 01/08/18 08:23 Baso % (Auto) 0.4 % (0.0-2.0) 01/08/18 08:23 Neut # (Auto) 2.7 th/mm3 (1.8-7.7) 01/08/18 08:23 Lymph # (Auto) 1.0 th/mm3 (1.0-4.8) 01/08/18 08:23 Elbert # (Auto) 0.4 th/mm3 (0.0-0.9) 01/08/18 08:23 Eos # (Auto) 0.2 th/mm3 (0.0-0.4) 01/08/18 08:23 Baso # (Auto) 0.0 th/mm3 (0.0-0.2) 01/08/18 08:23 WBC Differential . 01/08/18 08:23 Diff Scan Auto diff confirmed 01/08/18 08:23 Seg Neuts % (Manual) 69 % (16-70) 01/04/18 04:18 Band Neuts % (Manual) 8 % (0-6) H 01/04/18 04:18 Lymphocytes % (Manual) 17 % (9-44) 01/04/18 04:18 Monocytes % (Manual) 4 % (0-8) 01/04/18 04:18 Basophils % (Manual) 1 % (0-2) 01/04/18 04:18 Metamyelocytes % (Man) 1 % (0-1) 01/04/18 04:18 Abs Neuts (Manual) 4.3 th/mm3 (1.8-7.7) 01/04/18 04:18 Differential Comment . 01/08/18 08:23 Platelet Estimate Low (Normal) L 01/08/18 08:23 Platelet Morphology Enlarged (Normal) H 01/08/18 08:23 Dimorphic RBCs Present (None) H 01/05/18 04:32 Target Cells 1+ (None) H 01/02/18 18:00 Ovalocytes 1+ (None) H 01/08/18 08:23 Acanthocytes (Spur) Occ (None) H 01/05/18 04:32 PT 14.8 sec (9.8-11.6) H 01/08/18 08:23 INR 1.5 Ratio 01/08/18 08:23 APTT 23.6 sec (24.3-30.1) L 01/02/18 13:18 Puncture Site Right radial 01/02/18 13:01 Patient Temperature 98.6 01/02/18 13:01 O2 Saturation 94 % (90-100) 01/02/18 13:01 ABG pH 7.54 (7.380-7.420) H* 01/02/18 13:01 ABG pCO2 27 mmHg (38-42) L 01/02/18 13:01 ABG pO2 78 mmHg (61-120) 01/02/18 13:01 ABG HCO3 23 mmol/L (22-26) 01/02/18 13:01 ABG O2 Content 6.8 Vol % (12.0-20.0) L 01/02/18 13:01 ABG Base Excess 0.1 mmol/L (-2-2) 01/02/18 13:01 ABG Methemoglobin 1.5 % (0-2) 01/02/18 13:01 Eric Test Present 01/02/18 13:01 Hemoglobin 5.1 G/DL (12.0-16.0) L* 01/02/18 13:01 Carboxyhemoglobin 3.4 % (0-4) 01/02/18 13:01 O2 Delivery Device Nasal cannula 01/02/18 13:01 Liter Flow 2.00 L/M 01/02/18 13:01 Inspired O2 21 % 01/02/18 13:01 Critical Value Yes 01/02/18 13:01 Sodium 140 meq/L (136-145) 01/08/18 08:23 Potassium 3.5 meq/L (3.5-5.1) 01/08/18 08:23 Chloride 105 meq/L (98-107) 01/08/18 08:23 Carbon Dioxide 26.8 meq/L (21.0-32.0) 01/08/18 08:23 Anion Gap 8 meq/L (5-15) 01/08/18 08:23 BUN 7 mg/dL (7-18) 01/08/18 08:23 Creatinine 0.79 mg/dL (0.60-1.30) 01/08/18 08:23 Estimated GFR Greater than 89 mL/min (>89) 01/08/18 08:23 POC Glucose 112 mg/dl (68-110) H 01/03/18 11:22 Random Glucose 81 mg/dL (74-106) 01/08/18 08:23 Hemoglobin A1c 5.3 % (4.3-6.0) 01/07/18 06:56 Lactic Acid 1.8 mmol/L (0.4-2.0) 01/02/18 15:28 Calcium 7.2 mg/dL (8.5-10.1) L* 01/08/18 08:23 Prot Corrected Calcium 7.8 mg/dL (8.5-10.1) L 01/08/18 08:23 Phosphorus 3.7 mg/dL (2.5-4.9) 01/08/18 08:23 Magnesium 1.9 mg/dL (1.5-2.5) 01/08/18 08:23 Total Bilirubin 1.7 mg/dL (0.2-1.0) H 01/08/18 08:23 AST 18 U/L (15-37) 01/08/18 08:23 ALT 11 U/L (12-78) L 01/08/18 08:23 Alkaline Phosphatase 96 U/L (45-117) 01/08/18 08:23 Ammonia 89 mcmol/L (11-32) H 01/08/18 08:23 Total Creatine Kinase 45 U/L (39-308) 01/02/18 13:18 Troponin I 0.04 ng/mL (0.02-0.05) 01/02/18 13:18 Total Protein 6.0 g/dL (6.4-8.2) L 01/08/18 08:23 Albumin 2.2 g/dL (3.4-5.0) L 01/08/18 08:23 Lipase 84 U/L (73-393) 01/02/18 13:18 TSH 0.467 uIU/mL (0.358-3.740) 01/07/18 06:56 Free T4 0.86 ng/dL (0.76-1.46) 01/07/18 06:56 Urine Color Yellow (Yellw/Straw) 01/02/18 17:30 Urine Clarity Clear (Clear) 01/02/18 17:30 Urine pH 7.0 (5.0-8.5) 01/02/18 17:30 Ur Specific [place] 1.035 (1.002-1.035) 01/02/18 17:30 Urine Protein Negative mg/dL (Neg-Trace) 01/02/18 17:30 Urine Glucose (UA) Negative mg/dL (Negative) 01/02/18 17:30 Urine Ketones Negative mg/dL (Negative) 01/02/18 17:30 Urine Occult Blood Negative (Negative) 01/02/18 17:30 Urine Nitrate Negative (Negative) 01/02/18 17:30 Urine Bilirubin Negative (Negative) 01/02/18 17:30 Urine Urobilinogen 2.0 mg/dL (Less than 2) H 01/02/18 17:30 Ur Leukocyte Esterase Negative (Negative) 01/02/18 17:30 Urine RBC Less than 1 /hpf (0-3) 01/02/18 17:30 Urine WBC 1 /hpf (0-5) 01/02/18 17:30 Ur Squamous Epith Cells <1 /hpf (0-5) 01/02/18 17:30 Urine Mucus Few /lpf (Occasional) H 01/02/18 17:30 Micro UA Comment Culture not ind 01/02/18 17:30 Ur Microscopic Review Not Reportable 01/02/18 17:30 Urine Culture Comments Culture not ind 01/02/18 17:30 Peritoneal RBC 620 /mm3 (0-0) H 01/04/18 10:42 Periton Nuc Cells 172 /mm3 (0-10) H 01/04/18 10:42 Periton Neutrophils 7 % 01/04/18 10:42 Periton Lymphocytes 87 % 01/04/18 10:42 Peritoneal Monocytes 4 % 01/04/18 10:42 Periton Mesothelial 1 % 01/04/18 10:42 Periton Histiocytes 1 % 01/04/18 10:42 Peritoneal Tot Protein 1.1 gm/dL 01/04/18 10:42 Peritoneal Albumin 0.5 g/dL 01/04/18 10:42 Peritoneal LDH 50 U/L 01/04/18 10:42 Peritoneal Glucose 85 mg/dL 01/04/18 10:42 Peritoneal Amylase 15 U/L 01/04/18 10:42 Nasal Screen MRSA (PCR) Not detected (Negative) 01/02/18 17:35 Urine Opiates Screen Neg (Neg) 01/02/18 17:30 Ur Barbiturates Screen Neg (Neg) 01/02/18 17:30 Ur Amphetamines Screen Neg (Neg) 01/02/18 17:30 U Benzodiazepines Scrn Pos (Neg) H 01/02/18 17:30 Urine Cocaine Screen Neg (Neg) 01/02/18 17:30 U Cannabinoids Screen Neg (Neg) 01/02/18 17:30 Blood Type A Negative 01/07/18 15:10 Blood Type Recheck Cancelled 01/07/18 15:10 Rho(D) Type Cancelled 01/07/18 15:10 Weak D (Du) Cancelled 01/07/18 15:10 Antibody Screen Negative 01/07/18 15:10 MTS Gel Crossmatch See Detail 01/07/18 15:10 Bld Prod Order Comment 01/03/18 07:30 Impressions Chest X-Ray 01/02/18 12:51 CONCLUSION: Negative examination. Abdomen/Pelvis CT 01/02/18 12:58 CONCLUSION: 1. Cirrhosis and portal hypertension. 2. Abnormal circumferential bowel wall thickening involving the transverse colon and descending colon characteristic of colitis. Chest CT 01/02/18 13:39 CONCLUSION: 1. The study is breathing motion degraded. 2. Mild cardiomegaly. 3. Minimal bibasilar atelectasis. 4. Hiatal hernia. Liver Ultrasound 01/02/18 17:29 CONCLUSION: 1. Enlarged echogenic liver consistent with fatty infiltration and/or diffuse hepatocellular disease. 2. Ascites. 3. Hepatopedal flow within the portal vein. 4. Splenomegaly. 5. Gallbladder wall thickening. If there is clinical concern for acute cholecystitis, a hepatobiliary scan may be helpful to confirm cystic duct obstruction. Paracentesis Ultrasound 01/04/18 00:00 CONCLUSION: Ultrasound-guided thoracentesis as above. Labs on day of discharge: Labs from last 24 hours 01/08/18 01/08/18 01/08/18 08:23 08:23 08:23 WBC RBC Hgb Hct MCV MCH MCHC RDW Plt Count MPV Prelim Diff (Auto) Neut % (Auto) Lymph % (Auto) Elbert % (Auto) Eos % (Auto) Baso % (Auto) Neut # (Auto) Lymph # (Auto) Elbert # (Auto) Eos # (Auto) Baso # (Auto) WBC Differential Diff Scan Differential Comment Platelet Estimate Platelet Morphology Ovalocytes PT 14.8 H INR 1.5 Sodium 140 Potassium 3.5 Chloride 105 Carbon Dioxide 26.8 Anion Gap 8 BUN 7 Creatinine 0.79 Estimated GFR Greater than 89 Random Glucose 81 Hemoglobin A1c Calcium 7.2 L* Prot Corrected Calcium 7.8 L Phosphorus 3.7 Magnesium 1.9 Total Bilirubin 1.7 H AST 18 ALT 11 L Alkaline Phosphatase 96 Ammonia 89 H Total Protein 6.0 L Albumin 2.2 L Blood Type Blood Type Recheck Rho(D) Type Weak D (Du) Antibody Screen MTS Gel Crossmatch 01/08/18 01/07/18 01/07/18 08:23 15:10 15:10 WBC 4.2 RBC 3.56 L Hgb 9.0 L Hct 28.4 L MCV 79.9 L MCH 25.4 L MCHC 31.8 L RDW 20.9 H Plt Count 71 L MPV 8.7 Prelim Diff (Auto) Slide review pending Neut % (Auto) 63.2 Lymph % (Auto) 23.4 Elbert % (Auto) 8.9 H Eos % (Auto) 4.1 H Baso % (Auto) 0.4 Neut # (Auto) 2.7 Lymph # (Auto) 1.0 Elbert # (Auto) 0.4 Eos # (Auto) 0.2 Baso # (Auto) 0.0 WBC Differential . Diff Scan Auto diff confirmed Differential Comment . Platelet Estimate Low L Platelet Morphology Enlarged H Ovalocytes 1+ H PT INR Sodium Potassium Chloride Carbon Dioxide Anion Gap BUN Creatinine Estimated GFR Random Glucose Hemoglobin A1c Calcium Prot Corrected Calcium Phosphorus Magnesium Total Bilirubin AST ALT Alkaline Phosphatase Ammonia Total Protein Albumin Blood Type A Negative Cancelled Blood Type Recheck Cancelled Rho(D) Type Cancelled Weak D (Du) Cancelled Antibody Screen Negative Cancelled MTS Gel Crossmatch See Detail 01/07/18 06:56 WBC RBC Hgb Hct MCV MCH MCHC RDW Plt Count MPV Prelim Diff (Auto) Neut % (Auto) Lymph % (Auto) Elbert % (Auto) Eos % (Auto) Baso % (Auto) Neut # (Auto) Lymph # (Auto) Elbert # (Auto) Eos # (Auto) Baso # (Auto) WBC Differential Diff Scan Differential Comment Platelet Estimate Platelet Morphology Ovalocytes PT INR Sodium Potassium Chloride Carbon Dioxide Anion Gap BUN Creatinine Estimated GFR Random Glucose Hemoglobin A1c 5.3 Calcium Prot Corrected Calcium Phosphorus Magnesium Total Bilirubin AST ALT Alkaline Phosphatase Ammonia Total Protein Albumin Blood Type Blood Type Recheck Rho(D) Type Weak D (Du) Antibody Screen MTS Gel Crossmatch - Impressions ITS Impressions Chest X-Ray 01/02/18 12:51 CONCLUSION: Negative examination. Abdomen/Pelvis CT 01/02/18 12:58 CONCLUSION: 1. Cirrhosis and portal hypertension. 2. Abnormal circumferential bowel wall thickening involving the transverse colon and descending colon characteristic of colitis. Chest CT 01/02/18 13:39 CONCLUSION: 1. The study is breathing motion degraded. 2. Mild cardiomegaly. 3. Minimal bibasilar atelectasis. 4. Hiatal hernia. Liver Ultrasound 01/02/18 17:29 CONCLUSION: 1. Enlarged echogenic liver consistent with fatty infiltration and/or diffuse hepatocellular disease. 2. Ascites. 3. Hepatopedal flow within the portal vein. 4. Splenomegaly. 5. Gallbladder wall thickening. If there is clinical concern for acute cholecystitis, a hepatobiliary scan may be helpful to confirm cystic duct obstruction. Paracentesis Ultrasound 01/04/18 00:00 CONCLUSION: Ultrasound-guided thoracentesis as above. Discharge Plan - Discharge Disposition Patient Disposition: 01 Discharge Home - Discharge Condition Condition: Serious - Discharge Order Discharge Orders: Discharge Order (Routine); Ordered 01/08/18 Ordered By: Julian Mendiola - Discharge Details Anticipated Discharge Date: 01/08/18 Discharge Comment: DC TO HOME TODAY - Physicians Team Primary Care Provider: UNKNOWN, Attending Provider: Julian Mendiola Other Providers: Adam Sanchez MD
--- NOTE | 2018-01-08 10:59 | P.PNGI ---
Subjective Interval history: Pt resting soundly with eyes closed. Awakens easily and denies any discomfort at this time. Pt states he is tolerating diet well and denies nv or abdominal pain. Physical Exam Vital signs: Vital Signs 01/07/18 11:30 01/07/18 12:00 01/07/18 16:00 Temperature 98.3 F 97.6 F Pulse Rate 58 L 54 L Respiratory Rate 16 18 16 Blood Pressure 121/67 124/58 L Pulse Oximetry 97 98 01/07/18 17:40 01/07/18 17:44 01/07/18 18:00 Temperature 98.5 F 98.0 F Pulse Rate 55 L 57 L Respiratory Rate 18 18 18 Blood Pressure 117/63 117/56 L Pulse Oximetry 99 97 01/07/18 20:00 01/07/18 21:16 01/07/18 21:51 Temperature 98.2 F 98.1 F 98.3 F Pulse Rate 60 62 62 Respiratory Rate 18 18 18 Blood Pressure 135/63 130/66 121/58 L Pulse Oximetry 99 98 01/08/18 00:00 01/08/18 04:00 01/08/18 08:00 Temperature 98.6 F 97.9 F 98.0 F Pulse Rate 58 L 53 L 53 L Respiratory Rate 20 20 20 Blood Pressure 134/63 132/58 L 134/68 Pulse Oximetry 98 98 97 01/08/18 09:32 Temperature Pulse Rate Respiratory Rate 18 Blood Pressure Pulse Oximetry Intake & Output 01/07/18 01/08/18 01/08/18 18:59 06:59 18:59 Intake Total 1320.5 / 1320.5 1340 / 1340 Output Total 2500 / 2500 Balance -1179.5 / -1179.5 1340 / 1340 Weight 94 kg Intake: IV 600.5 / 600.5 100 / 100 SandoSTATIN Inj 500 MCG In NS 500.5 / 500.5 Inj 500 ML @ 25 MCG/HR 25.02 mls/hr IV.CONT .Q20H1M NAVID Rx#: [id number] Zosyn 3.375 GM Premix 50 ML @ 100 / 100 100 / 100 100 mls/hr IV.SIG Q6HR NAVID Rx#: [id number] Oral 720 / 720 240 / 240 Other 200 / 200 Rbc As-3 Leukoreduced Unit 100 / 100 [id number] Rbc As-3 Leukoreduced Unit 100 / 100 [id number] Intake (Blood Product) Amt 0 / 0 800 / 800 Rbc As-3 Leukoreduced Unit 400 / 400 [id number] Rbc As-3 Leukoreduced Unit 0 / 0 400 / 400 [id number] Output: Urine 2500 / 2500 Other: # Voids 3 2 Date of Last Bowel Movement 01/07/18 01/07/18 # Bowel Movements 1 - Constitutional no acute distress, cooperative - Routine HEENT Exam Head: Present: normocephalic - Routine Neck Exam Present: supple - Routine Respiratory Exam Present: CTA bilaterally. Absent: respiratory distress - Routine Cardiovascular Exam Present: RRR - Routine Abdominal Exam Present: soft, normoactive bowel sounds. Absent: guarding, firm - Routine Skin Exam Present: dry, warm - Routine Neurological Exam Present: alert, oriented X3 - Detailed Neurological Exam: Coma Scale Eye Opening: Spontaneous Verbal Response: Oriented Motor Response: Obey commands Satish Coma Scale Total: 15 - Routine Psychiatric Exam Present: normal affect Results - Labs CBC & Chem 7: 01/08/18 08:23 01/08/18 08:23 Laboratory Results - last 24 hr 01/07/18 01/07/18 01/07/18 06:56 15:10 15:10 WBC RBC Hgb Hct MCV MCH MCHC RDW Plt Count MPV Prelim Diff (Auto) Neut % (Auto) Lymph % (Auto) [place] % (Auto) Eos % (Auto) Baso % (Auto) Neut # (Auto) Lymph # (Auto) [place] # (Auto) Eos # (Auto) Baso # (Auto) WBC Differential Diff Scan Differential Comment Platelet Estimate Platelet Morphology Ovalocytes PT INR Sodium Potassium Chloride Carbon Dioxide Anion Gap BUN Creatinine Estimated GFR Random Glucose Hemoglobin A1c 5.3 Calcium Prot Corrected Calcium Phosphorus Magnesium Total Bilirubin AST ALT Alkaline Phosphatase Ammonia Total Protein Albumin Blood Type Cancelled A Negative Blood Type Recheck Cancelled Rho(D) Type Cancelled Weak D (Du) Cancelled Antibody Screen Cancelled Negative MTS Gel Crossmatch See Detail 01/08/18 01/08/18 01/08/18 08:23 08:23 08:23 WBC 4.2 RBC 3.56 L Hgb 9.0 L Hct 28.4 L MCV 79.9 L MCH 25.4 L MCHC 31.8 L RDW 20.9 H Plt Count 71 L MPV 8.7 Prelim Diff (Auto) Slide review pending Neut % (Auto) 63.2 Lymph % (Auto) 23.4 [place] % (Auto) 8.9 H Eos % (Auto) 4.1 H Baso % (Auto) 0.4 Neut # (Auto) 2.7 Lymph # (Auto) 1.0 [place] # (Auto) 0.4 Eos # (Auto) 0.2 Baso # (Auto) 0.0 WBC Differential . Diff Scan Auto diff confirmed Differential Comment . Platelet Estimate Low L Platelet Morphology Enlarged H Ovalocytes 1+ H PT 14.8 H INR 1.5 Sodium 140 Potassium 3.5 Chloride 105 Carbon Dioxide 26.8 Anion Gap 8 BUN 7 Creatinine 0.79 Estimated GFR Greater than 89 Random Glucose 81 Hemoglobin A1c Calcium 7.2 L* Prot Corrected Calcium 7.8 L Phosphorus 3.7 Magnesium 1.9 Total Bilirubin 1.7 H AST 18 ALT 11 L Alkaline Phosphatase 96 Ammonia Total Protein 6.0 L Albumin 2.2 L Blood Type Blood Type Recheck Rho(D) Type Weak D (Du) Antibody Screen MTS Gel Crossmatch 01/08/18 08:23 WBC RBC Hgb Hct MCV MCH MCHC RDW Plt Count MPV Prelim Diff (Auto) Neut % (Auto) Lymph % (Auto) [place] % (Auto) Eos % (Auto) Baso % (Auto) Neut # (Auto) Lymph # (Auto) [place] # (Auto) Eos # (Auto) Baso # (Auto) WBC Differential Diff Scan Differential Comment Platelet Estimate Platelet Morphology Ovalocytes PT INR Sodium Potassium Chloride Carbon Dioxide Anion Gap BUN Creatinine Estimated GFR Random Glucose Hemoglobin A1c Calcium Prot Corrected Calcium Phosphorus Magnesium Total Bilirubin AST ALT Alkaline Phosphatase Ammonia 89 H Total Protein Albumin Blood Type Blood Type Recheck Rho(D) Type Weak D (Du) Antibody Screen MTS Gel Crossmatch - Procedures 9-6 EGD WITH BAND LIGATION OF VARICES DUE TO HEMATEMESIS CHRONIC GASTROPATHY OF ENTIRE STOMACH Erick Bonilla US paracentesis abd w/image Signed EXAM DATE: 01/04/2018 11:43 AM EDT AGE/SEX: 32 years / Male INDICATIONS: Ascites. CLINICAL DATA: This is the patient's subsequent encounter. Patient reports that signs and symptoms have been present for 1 day and indicates a pain score of 0/10. MEDICAL/SURGICAL HISTORY: . Afib. Hepatitis C. HTN. Liver cirrhosis. Substance abuse. None. COMPARISON: [facility] [place], ABDOMEN LIVER VASC COMP, 01/02/2018. . FLUID: Total volume of 2020 cc of clear, yellow fluid was removed. Fluid was sent to lab for ordered studies. . . TECHNIQUE: Ultrasound guidance for abdominal paracentesis. Paracentesis. The risks, benefits, and alternatives to ultrasound guided paracentesis were explained to the patient in detail including the risk of bleeding and infection. Written and verbal informed consent was obtained. FINDINGS: With the patient on the ultrasound table, ultrasound imaging was used to select the most appropriate approach for paracentesis. No single large pocket could be identified therefore, the largest pocket in the right lower abdominal quadrant was targeted. Overlying skin was prepped and draped in usual sterile fashion and anesthetized with proximally 5 cc 1% Xylocaine. Using direct ultrasound guidance, a 21-gauge micropuncture needle was advanced into the peritoneal cavity. An 018 wire was advanced through the needle over which a 3 4 dilator was placed. 20 cc of clear straw-colored fluid was immediately withdrawn from the 4 [place] dilator. The dilator was then connected to Vacutainer suction and additional 2000 cc of clear yellow fluid was removed. The patient tolerated the procedure well and left the ultrasound suite in stable condition. CONCLUSION: Ultrasound-guided thoracentesis as above. Electronically signed by: Joaquim Marcum MD 01/04/2018 1:48 PM EDT Assessment and Plan - Plan - Hematemesis/esophageal varices- No more bleeding, had brown BM today S/P EGD/ banding on 01/04/18, I don't have official report one episode of hematemesis (bright red) a week ago but non after. Denies bloody or black tarry stools. States that he has been having diffused constant abdominal pain. hgb on arrival was 4.8, today this is 7.4 s/p blood transfusion (4 units) Pt hasn't been following with GI provider as an OP. Denies daily alcohol intake, but admits to drinking 2 weeks ago then 4 days ago, a large amount (not able to specify). Denies current drug use. Denies blood thinner. PPI - Cirrhosis- MELD score 15, LFTs wnl. hx of alcohol and hep-C, hasn't been following with GI provider Abdomen/Pelvis CT 01/02/18 Cirrhosis and portal hypertension. Abnormal circumferential bowel wall thickening involving the transverse colon and descending colon characteristic of colitis. Liver Ultrasound 01/02/18 Enlarged echogenic liver consistent with fatty infiltration and/or diffuse hepatocellular disease. Ascites. Hepatopetal flow within the portal vein. Splenomegaly. Gallbladder wall thickening. If there is clinical concern for acute cholecystitis, a hepatobiliary scan may be helpful to confirm cystic duct obstruction. - ? acute alcohol hepatitis- DF is 20, pt cont. to drink but not daily, admits to drinking 4 days ago (large amount) - Ascites- S/P paracentesis today 2 L removed, no indication of infection so far. Zosyn. - High bilirubin- Trending down - hep-C (s/p unsuccessful tx in the past X 2, not sure what type)- discuss tx as an OP - Sepsis- ? SBP - Coagulopathy/ thrombocytopenia- Secondary to above - High ammonia- 61 on lactulose - Colitis on CT- abx, will need colonoscopy at some point 01/07/18- Patient sitting up in bed. Denies abdominal pain or tenderness. Denies blood noted in stool. Tolerating po intake without noted nausea or vomiting . EGD with banding of esophageal varices done on 01/04/18 findings include chronic gastropathy in the entire stomach, normal duodenal mucosa in the duodenal bulb,and 3rd part duodenum, retroflexion was performed and was normal. No signs of GI bleeding. Patient on Octeotride drip. Labs reviewed today: Wbc 5.8, Hgb 7.6, Hct 23.9, Plt 72. 9- Pt resting in bed soundly. Denies abdominal pain nausea or vomiting. Denies any noted bleeding. Tolerating Po intake well per patient. Octeotride drip discontinued as per attending. Labs reviewed: ( pt post transfusion of 2 units PRBCs on 01/07/18) Hgb 9.0, Hct 28.4 Plt 71, total bili 1.7 AST 18 ALT 11. Pt stable for discharge from GI standpoint. Will recommend pt follow up in office in 3-4 weeks. Plan: Discharge plan as per attending Regular diet Alcohol cessation FU in GI office in 3-4 weeks Patient seen and examined by Dr. Sanchez and myself. This note is written on his behalf.
[2018-02-20] MEDS ORDERED: ALPRAZolam 0.25 MG Tablet PO ONE (21:30)
== END 2018-01-08 12:46 | disposition home or self-care (01) ==
LOC: PHED 12:04 → PHEDA 15:08 → HIMC 17:05 → N04 01-05 15:51
PROVIDERS: ADMIT Hospitalist; ATTEND Hospitalist
PROC: PANENDO (2018-01-03 14:30)

== ENCOUNTER 2018-02-20 14:19 | Inpatient (IN) ==
[2018-02-20 15:07] LABS: Baso % (Auto) 0.3 % (0.0-2.0); Eos # (Auto) 0.1 th/mm3 (0.0-0.4); Eos % (Auto) 0.6 % (0.0-4.0); Lymph # (Auto) 1.3 th/mm3 (1.0-4.8); Lymph % (Auto) 12.5 % (9.0-44.0); Mean Corpuscular HGB Conc 32.9 % (32.0-36.0); Mean Corpuscular Hemoglobin 25.5 pg (27.0-34.0); Mean Corpuscular Volume 77.4 fL (80.0-100.0); Mean Platelet Volume 7.8 fL (7.0-11.0); Mono # (Auto) 0.7 th/mm3 (0.0-0.9); Mono % (Auto) 6.6 % (0.0-8.0); Neut # (Auto) 8.1 th/mm3 (1.8-7.7); Platelet Count 127 th/mm3 (150-450); Red Blood Count 2.44 mil/mm3 (4.50-5.90); Red Cell Distribution Width 21.3 % (11.6-17.2); White Blood Count 10.3 th/mm3 (4.0-11.0)
[2018-02-20 15:12] LABS: Hemoglobin 6.2 gm/dL (13.0-17.0)
[2018-02-20 15:13] LABS: Hematocrit 18.9 % (39.0-51.0)
[2018-02-20 15:19] LABS: Chloride 104 meq/L (98-107); Potassium 3.9 meq/L (3.5-5.1); Sodium 137 meq/L (136-145)
[2018-02-20 15:23] LABS: Albumin 2.2 g/dL (3.4-5.0); Calcium 7.5 mg/dL (8.5-10.1); Lipase 101 U/L (73-393)
[2018-02-20 15:24] LABS: Anion Gap 8 meq/L (5-15); Blood Urea Nitrogen 18 mg/dL (7-18); Glucose,Random 123 mg/dL (74-106)
[2018-02-20 15:26] LABS: Alanine Aminotransferase 17 U/L (12-78); Aspartate Aminotransferase 23 U/L (15-37); Glomerular Filtration Rate Greater Than 89 mL/min (>89)
[2018-02-20 15:29] LABS: Alkaline Phosphatase 86 U/L (45-117)
[2018-02-20 15:33] LABS: Ovalocytes 1+; Platelet Morphology Normal (Normal)
--- NOTE | 2018-02-20 15:35 | ED ---
HPI General Chief Complaint: Abdominal Pain Stated Complaint: MD ESCOBAR PAIN / N/V RECTAL BLEEDING XLAST NIGHT Time Seen by Provider: 02/20/18 15:08 Source: patient Mode of arrival: ambulatory Limitations: no limitations History of Present Illness HPI narrative: Patient is 33 years old and has a history of cirrhosis of the liver with esophageal varices that were diagnosed in December and treated with band ligation by GI. He underwent a paracentesis at that time. The patient has a history of IV drug abuse. Additional past medical history includes hepatitis C. He reports that he has had abdominal pain for a week or so and that yesterday he vomited multiple times overnight including bloody vomit. He also reports bloody stool. He does not follow with any outside physician or clinic. MD complaint: Reports abdominal pain Onset (ago): day(s) (1) Pain Consistency: constant Location: Reports epigastric Related Data Home Medications Medication Instructions Recorded Confirmed No Known Home Medications 02/20/18 02/20/18 Allergies Allergy/AdvReac Type Severity Reaction Status Date / Time codeine Allergy Severe HIVES Verified 02/20/18 14:36 phenytoin Allergy Severe HIVES Verified 02/20/18 14:36 Review of Systems ROS: all other systems reviewed are negative Constitutional Denies fever(s) PMFSH Family History Family History Other Heart problem Social History Social History Substance History: No History of Abuse Second Hand Smoke Exposure: Yes Smoking Status: Current every day smoker Tobacco Type: Cigarettes How Often Do You Have a Drink Containing Alcohol: Never Recent Travel in [facility] [place] within the Last 8 Weeks: No Recent Out of Country Travel within the Last 8 Weeks: No Immunization History Tetanus Immunization: <5 Years Exam Narrative Exam Narrative: GENERAL: 33-year-old male well-nourished well-developed pleasant mild distress due to pain and/or anxiety SKIN: Focused skin assessment warm/dry. No jaundice. HEAD: Atraumatic. Normocephalic. EYES: Pupils equal and round. No scleral icterus. No injection or drainage. ENT: No nasal bleeding or discharge. Mucous membranes pink and moist. NECK: Trachea midline. No JVD. CARDIOVASCULAR: Regular rate and rhythm. No murmur appreciated. RESPIRATORY: No accessory muscle use. Clear to auscultation. Breath sounds equal bilaterally. GASTROINTESTINAL: Diffuse generalized tenderness. Soft. MUSCULOSKELETAL: No obvious deformities. No clubbing. No cyanosis. No edema. NEUROLOGICAL: Awake and alert. No obvious cranial nerve deficits. Motor grossly within normal limits. Normal speech. PSYCHIATRIC: Appropriate mood and affect; insight and judgment normal. Course Initial Documented Vital Signs Temperature 98.9 F 02/20/18 14:34 Pulse Rate 106 H 02/20/18 14:34 Respiratory Rate 16 02/20/18 14:34 Blood Pressure 121/59 L 02/20/18 14:34 Pulse Oximetry 100 02/20/18 14:34 Last Documented Vital Signs Temperature 97.8 F 02/21/18 04:00 Pulse Rate 70 02/21/18 04:00 Respiratory Rate 18 02/21/18 04:00 Blood Pressure 132/71 02/21/18 04:00 Pulse Oximetry 100 02/21/18 04:00 Critical Care Time Critical Care Time: Yes (35) Total Critical Care Time: 35 Attestation: Aggregate critical care time was 35 minutes. Time to perform other separately billable procedures was not included in the critical care time. My time did not include minutes spent treating any other patients simultaneously or on activities that did not directly contribute to the patient's treatment. The services I provided to this patient were to treat and/or prevent clinically significant deterioration that could result in: Hemorrhagic shock, septic shock I provided critical care services requiring my management, as noted below: Chart data review, documentation time, medication orders and management, vital sign assessments/reviewing monitor data, ordering and reviewing lab tests, ordering and interpreting/reviewing x-rays and diagnostic studies, care of the patient and discussion of the patient with the admitting physicians. Medical Decision Making MDM Narrative Medical decision making narrative: d/w Dr Wilder at 3:00pm with a plan for admission after discussed with GI. Patient was checked out to me at time of check out with GI consult pending and plan for admission. Patient has a history of cirrhosis with known varices, last banded in December. He received octreotide, rocephin and 2 u PRBCs prior to check out. I spoke with Dr Farris, GI physician senior pensions administrator whom stated that the patient may need to have an EGD again. He has been hemodynamically stable, but as he is receiving blood [place] [facility]in case he needs more blood products, which are not as readily available here as they are at [facility] I also spoke with Dr Spencer, whom agreed to admission. Medical Screen Exam Complete: Yes Emergency Medical Condition: Yes Differential Diagnosis Differential Diagnosis: Constipation, Gastritis, Acute Cholecystitis, Biliary Colic, Pancreatitis, VILA, Hepatitis, Bowel Obstruction, Cystitis, Mesenteric Ischemia, AAA, Appendicitis, Renal Stone/Hydronephrosis, GERD, perforated viscous Lab Data Result diagrams: 02/21/18 03:39 02/20/18 15:01 Lab Results 02/20/18 02/20/18 02/20/18 Range/Units 15:01 15:01 15:01 CBC w Diff Slide review pending WBC 10.3 (4.0-11.0) th/mm3 RBC 2.44 L (4.50-5.90) mil/mm3 Hgb 6.2 L* (13.0-17.0) gm/dL Hct 18.9 L* (39.0-51.0) % MCV 77.4 L (80.0-100.0) fL MCH 25.5 L (27.0-34.0) pg MCHC 32.9 (32.0-36.0) % RDW 21.3 H (11.6-17.2) % Plt Count 127 L (150-450) th/mm3 MPV 7.8 (7.0-11.0) fL Neut % (Auto) 80.0 H (16.0-70.0) % Lymph % (Auto) 12.5 (9.0-44.0) % [place] % (Auto) 6.6 (0.0-8.0) % Eos % (Auto) 0.6 (0.0-4.0) % Baso % (Auto) 0.3 (0.0-2.0) % Neut # (Auto) 8.1 H (1.8-7.7) th/mm3 Lymph # (Auto) 1.3 (1.0-4.8) th/mm3 [place] # (Auto) 0.7 (0.0-0.9) th/mm3 Eos # (Auto) 0.1 (0.0-0.4) th/mm3 Baso # (Auto) 0.0 (0.0-0.2) th/mm3 WBC Differential . Diff Scan Auto diff confirmed Differential Comment . Platelet Estimate Low L (Normal) Platelet Morphology Normal (Normal) Ovalocytes 1+ H (None) PT (9.8-11.6) sec INR Ratio Sodium 137 (136-145) meq/L Potassium 3.9 (3.5-5.1) meq/L Chloride 104 (98-107) meq/L Carbon Dioxide 25.0 (21.0-32.0) meq/L Anion Gap 8 (5-15) meq/L BUN 18 (7-18) mg/dL Creatinine 0.70 (0.60-1.30) mg/dL Estimated GFR Greater than 89 (>89) mL/min Random Glucose 123 H (74-106) mg/dL Calcium 7.5 L (8.5-10.1) mg/dL Magnesium 2.0 (1.5-2.5) mg/dL Total Bilirubin 1.0 (0.2-1.0) mg/dL AST 23 (15-37) U/L ALT 17 (12-78) U/L Alkaline Phosphatase 86 (45-117) U/L Total Protein 6.0 L (6.4-8.2) g/dL Albumin 2.2 L (3.4-5.0) g/dL Lipase 101 (73-393) U/L Ur Collection Type Urine Color (Yellw/Straw) Urine Clarity (Clear) Urine pH (5.0-8.5) Ur Specific [place] (1.002-1.035) Urine Protein (Neg-Trace) mg/dL Urine Glucose (UA) (Negative) mg/dL Urine Ketones (Negative) mg/dL Urine Occult Blood (Negative) Urine Nitrate (Negative) Urine Bilirubin (Negative) Urine Urobilinogen (Less than 2) mg/dL Ur Leukocyte Esterase (Negative) Urine WBC (0-5) /hpf Ur Squamous Epith Cells (0-5) /hpf Urine Bacteria (None) /hpf Urine Mucus (Occasional) /lpf Micro UA Comment Ur Microscopic Review Urine Culture Comments Blood Type A Negative Antibody Screen Negative MTS Gel Crossmatch 02/20/18 02/20/18 02/21/18 Range/Units 15:01 16:50 03:39 CBC w Diff WBC (4.0-11.0) th/mm3 RBC (4.50-5.90) mil/mm3 Hgb 7.1 L (13.0-17.0) gm/dL Hct 21.3 L (39.0-51.0) % MCV (80.0-100.0) fL MCH (27.0-34.0) pg MCHC (32.0-36.0) % RDW (11.6-17.2) % Plt Count (150-450) th/mm3 MPV (7.0-11.0) fL Neut % (Auto) (16.0-70.0) % Lymph % (Auto) (9.0-44.0) % [place] % (Auto) (0.0-8.0) % Eos % (Auto) (0.0-4.0) % Baso % (Auto) (0.0-2.0) % Neut # (Auto) (1.8-7.7) th/mm3 Lymph # (Auto) (1.0-4.8) th/mm3 [place] # (Auto) (0.0-0.9) th/mm3 Eos # (Auto) (0.0-0.4) th/mm3 Baso # (Auto) (0.0-0.2) th/mm3 WBC Differential Diff Scan Differential Comment Platelet Estimate (Normal) Platelet Morphology (Normal) Ovalocytes (None) PT (9.8-11.6) sec INR Ratio Sodium (136-145) meq/L Potassium (3.5-5.1) meq/L Chloride (98-107) meq/L Carbon Dioxide (21.0-32.0) meq/L Anion Gap (5-15) meq/L BUN (7-18) mg/dL Creatinine (0.60-1.30) mg/dL Estimated GFR (>89) mL/min Random Glucose (74-106) mg/dL Calcium (8.5-10.1) mg/dL Magnesium (1.5-2.5) mg/dL Total Bilirubin (0.2-1.0) mg/dL AST (15-37) U/L ALT (12-78) U/L Alkaline Phosphatase (45-117) U/L Total Protein (6.4-8.2) g/dL Albumin (3.4-5.0) g/dL Lipase (73-393) U/L Ur Collection Type Clean catch Urine Color Yellow (Yellw/Straw) Urine Clarity Slightly cloudy (Clear) Urine pH 6.0 (5.0-8.5) Ur Specific [place] 1.025 (1.002-1.035) Urine Protein Negative (Neg-Trace) mg/dL Urine Glucose (UA) Negative (Negative) mg/dL Urine Ketones Trace H (Negative) mg/dL Urine Occult Blood Negative (Negative) Urine Nitrate Negative (Negative) Urine Bilirubin Negative (Negative) Urine Urobilinogen 1.0 (Less than 2) mg/dL Ur Leukocyte Esterase Trace H (Negative) Urine WBC 0-5 (0-5) /hpf Ur Squamous Epith Cells 0-5 (0-5) /hpf Urine Bacteria Many H (None) /hpf Urine Mucus Few H (Occasional) /lpf Micro UA Comment Culture indicated Ur Microscopic Review Microscopic reviewed Urine Culture Comments Culture indicated Blood Type Antibody Screen MTS Gel Crossmatch See Detail 02/21/18 Range/Units 03:39 CBC w Diff WBC (4.0-11.0) th/mm3 RBC (4.50-5.90) mil/mm3 Hgb (13.0-17.0) gm/dL Hct (39.0-51.0) % MCV (80.0-100.0) fL MCH (27.0-34.0) pg MCHC (32.0-36.0) % RDW (11.6-17.2) % Plt Count (150-450) th/mm3 MPV (7.0-11.0) fL Neut % (Auto) (16.0-70.0) % Lymph % (Auto) (9.0-44.0) % [place] % (Auto) (0.0-8.0) % Eos % (Auto) (0.0-4.0) % Baso % (Auto) (0.0-2.0) % Neut # (Auto) (1.8-7.7) th/mm3 Lymph # (Auto) (1.0-4.8) th/mm3 [place] # (Auto) (0.0-0.9) th/mm3 Eos # (Auto) (0.0-0.4) th/mm3 Baso # (Auto) (0.0-0.2) th/mm3 WBC Differential Diff Scan Differential Comment Platelet Estimate (Normal) Platelet Morphology (Normal) Ovalocytes (None) PT 13.6 H (9.8-11.6) sec INR 1.3 Ratio Sodium (136-145) meq/L Potassium (3.5-5.1) meq/L Chloride (98-107) meq/L Carbon Dioxide (21.0-32.0) meq/L Anion Gap (5-15) meq/L BUN (7-18) mg/dL Creatinine (0.60-1.30) mg/dL Estimated GFR (>89) mL/min Random Glucose (74-106) mg/dL Calcium (8.5-10.1) mg/dL Magnesium (1.5-2.5) mg/dL Total Bilirubin (0.2-1.0) mg/dL AST (15-37) U/L ALT (12-78) U/L Alkaline Phosphatase (45-117) U/L Total Protein (6.4-8.2) g/dL Albumin (3.4-5.0) g/dL Lipase (73-393) U/L Ur Collection Type Urine Color (Yellw/Straw) Urine Clarity (Clear) Urine pH (5.0-8.5) Ur Specific [place] (1.002-1.035) Urine Protein (Neg-Trace) mg/dL Urine Glucose (UA) (Negative) mg/dL Urine Ketones (Negative) mg/dL Urine Occult Blood (Negative) Urine Nitrate (Negative) Urine Bilirubin (Negative) Urine Urobilinogen (Less than 2) mg/dL Ur Leukocyte Esterase (Negative) Urine WBC (0-5) /hpf Ur Squamous Epith Cells (0-5) /hpf Urine Bacteria (None) /hpf Urine Mucus (Occasional) /lpf Micro UA Comment Ur Microscopic Review Urine Culture Comments Blood Type Antibody Screen MTS Gel Crossmatch Imaging Data Radiologist's impression: Abdomen/Pelvis CT 02/20/18 15:11 CONCLUSION: Markedly cirrhotic appearance of the liver with upper abdominal varices, including esophageal varices and prominent splenomegaly. Nonspecific enlarged periportal lymph nodes which were present previously. Trace ascites. Discharge Plan Discharge Disposition Patient Disposition[place] [facility] [place] Condition Condition: Fair Discharge Details Diagnosis: Acute gastrointestinal bleeding Physicians Team ED Provider: Oneil Aguilar Primary Care Provider: UNKNOWN, Attending Provider: Oneil Mayo Other Providers: Elizabeth Gambino Status ED Status: Left Department Discharge Information Discharge Date/Time: 02/20/18 17:51
[2018-02-20] MEDS ORDERED: Octreotide Inj 50 MCG/ML Vial IV.PUSH ONE (15:42)
--- NOTE | 2018-02-20 16:40 | P.HPIM ---
History of Present Illness Primary Care Physician: UNKNOWN Chief Complaint: vomiting blood History of Present Illness: patient is a 33 y/o male with history of hepatitis C, Cirrhosis, esophageal varices, who presented to ER with hematemesis. he says that he started to throw up blood last night. he has mild generalized abdominal pain. he says that he's feeling weak, dizzy with mild sob. he denies any chest pain. he underwent EGD/ banding last month. Review of Systems All other systems reviewed negative except as stated in HPI [facility] - History History Provided By: Patient - Medical History Medical History: Medical History (Last Reviewed 02/20/18 @ 16:35 by Shannan Sahni MD) Afib Hep C w/o coma, chronic Hypertension Liver cirrhosis Substance abuse - Surgical History Surgical History: Surgical History (Last Reviewed 02/20/18 @ 16:35 by Shannan Sahni MD) No history of previous surgery (Acute) - Family History Family History: Family History (Last Updated 02/20/18 @ 16:35 by Shannan Sahni MD) Other Heart problem - Tobacco History Second Hand Smoke Exposure: Yes Tobacco Use In Past 30 Days: Yes Smoking Status: Current every day smoker Tobacco Type: Cigarettes - Alcohol History How Often Do You Have a Drink Containing Alcohol: Never - Substance Use History Substance History: No History of Abuse - Travel History Recent Travel in the [place] Within the Last 8 Weeks: No Recent Travel Out of the Country Within the Last 8 Weeks: No - Immunization History Tetanus Immunization: <5 Years Medications and Allergies Active Medications: Active Medications Octreotide Acetate 500 mcg/ (Sodium Chloride) 500.5 mls @ 25.02 mls/hr IV.CONT .Q20H1M [facility] Ceftriaxone Sodium 1,000 mg/ (Sodium Chloride) 100 mls @ 200 mls/hr IV.SIG Q24H [facility] Sodium Chloride (Ns Inj) 1,000 mls @ 100 mls/hr IV.CONT .Q10H [facility] Allergies Allergy/AdvReac Type Severity Reaction Status Date / Time codeine Allergy Severe HIVES Verified 02/20/18 14:36 phenytoin Allergy Severe HIVES Verified 02/20/18 14:36 Home Medications Medication Instructions Recorded Confirmed Type No Known Home Medications 02/20/18 02/20/18 History Exam Vital signs: Vital Signs 02/20/18 14:34 02/20/18 15:59 Temperature 98.9 F Pulse Rate 106 H 82 Respiratory Rate 16 18 Blood Pressure 121/59 L 139/63 Pulse Oximetry 100 99 Intake & Output 02/19/18 02/20/18 02/20/18 18:59 06:59 18:59 Weight 78 kg - Constitutional no acute distress - Routine HEENT Exam Eye: Present: PERRL (pale conjunctivae.) - Routine Neck Exam Present: supple - Routine Respiratory Exam Present: CTA bilaterally - Routine Cardiovascular Exam Present: RRR - Routine Abdominal Exam Present: soft, tenderness (mild generalized tenderness.) - Routine Extremities Exam Comments: no pedal edema. - Routine Neurological Exam Present: alert, oriented X3 Results - Labs CBC & Chem 7: 02/20/18 15:01 02/20/18 15:01 Labs: Short CBC 02/20/18 Range/Units 15:01 WBC 10.3 (4.0-11.0) th/mm3 Hgb 6.2 L* (13.0-17.0) gm/dL Hct 18.9 L* (39.0-51.0) % Plt Count 127 L (150-450) th/mm3 BMP 02/20/18 15:01 Sodium 137 Potassium 3.9 Chloride 104 Carbon Dioxide 25.0 BUN 18 Creatinine 0.70 Calcium 7.5 L Liver Function 02/20/18 Range/Units 15:01 Total Bilirubin 1.0 (0.2-1.0) mg/dL AST 23 (15-37) U/L ALT 17 (12-78) U/L Alkaline Phosphatase 86 (45-117) U/L Albumin 2.2 L (3.4-5.0) g/dL Caprini VTE Risk Assessment Caprini VTE Risk Assessment: Moderate/High Risk (score >= 2) VTE Pharmacological Exception Reason: High risk for bleeding Caprini Risk Assessment Model: Point Value = 1 Point Value = 2 Point Value = 3 Point Value = 5 Age 41-60 Minor surgery BMI > 25 kg/m2 Swollen legs Varicose veins or History of unexplained or recurrent spontaneous Oral contraceptives or hormone replacement Sepsis (< 1 month) Serious lung disease, including pneumonia (< 1 month) Abnormal pulmonary function Acute myocardial infarction Congestive heart failure (< 1 month) History of inflammatory bowel disease Medical patient at bed rest Age 61-74 Arthroscopic surgery Major open surgery (> 45 min) Laparoscopic surgery (> 45 min) Malignancy Confined to bed (> 72 hours) Immobilizing plaster cast Central venous access Age >= 75 History of VTE Family history of VTE Factor V Leiden Prothrombin [id number] Lupus anticoagulant Anticardiolipin antibodies Elevated serum homocysteine Heparin-induced thrombocytopenia Other congenital or acquired thrombophilia Stroke (< 1 month) Elective arthroplasty Hip, pelvis, or leg fracture Acute spinal cord injury (< 1 month) Prophylaxis Regimen: Total Risk Factor Score Risk Level Prophylaxis Regimen 0-1 Low Early ambulation 2 Moderate Order ONE of the following: *Sequential Compression Device (SCD) *Heparin 5000 units SQ BID 3-4 Higher Order ONE of the following medications: *Heparin 5000 units SQ TID *Enoxaparin/Lovenox 40 mg SQ daily (WT < 150 kg, CrCl > 30 mL/min) *Enoxaparin/Lovenox 30 mg SQ daily (WT < 150 kg, CrCl > 10-29 mL/min) *Enoxaparin/Lovenox 30 mg SQ BID (WT < 150 kg, CrCl > 30 mL/min) AND/OR *Sequential Compression Device (SCD) 5 or more Highest Order ONE of the following medications: *Heparin 5000 units SQ TID (Preferred with Epidurals) *Enoxaparin/Lovenox 40 mg SQ daily (WT < 150 kg, CrCl > 30 mL/min) *Enoxaparin/Lovenox 30 mg SQ daily (WT < 150 kg, CrCl > 10-29 mL/min) *Enoxaparin/Lovenox 30 mg SQ BID (WT < 150 kg, CrCl > 30 mL/min) AND *Sequential Compression Device (SCD) Assessment and Plan - Plan A/P - anemia; acute on chronic due to GI bleed- patient with history of hepatitis C/ Cirrhosis and esophageal varices- s/p EGD and banding last month keep NPO- continue Octreotide and IV Rocephin- will transfuse with PRBC and monitor H/H closely- GI will be consulted. CT of the abdomen pending. -DVT prophylaxis with SCD's. no chemical prophylaxis due to GI bleed. Discussed Condition With: ER physician and the patient. Discharge Planning: home- pending clinical course and GI evaluation.
--- NOTE | 2018-02-20 17:06 | CT ---
EXAM DATE: 02/20/2018 4:13 PM EDT AGE/SEX: 33 years / Male INDICATIONS: Mid abdominal pain and rectal bleeding. Nausea, vomiting and diarrhea. CLINICAL DATA: This is the patient's initial encounter. Patient reports that signs and symptoms have been present for 2 days and indicates a pain score of 9/10. MEDICAL/SURGICAL HISTORY: Hepatitis C. Cirrhosis. Hypertension. None. ORAL CONTRAST: No oral contrast ingested. RADIATION DOSE: 7.68 CTDI (mGy) COMPARISON: [facility], CT ABDOMEN & PELVIS W CONTRAST, 01/02/2018. . TECHNIQUE: Multiple contiguous axial images were obtained through the abdomen and pelvis following b olus infusion of 100 ml Omnipaque 350 (iohexol) nonionic water-soluble contrast as a single exam do se. No oral contrast ingested. Using automated exposure control and adjustment of the mA and/or kV a ccording to patient size, radiation dose was kept as low as reasonably achievable to obtain optimal d iagnostic quality images. DICOM format image data is available electronically for review and compari son. FINDINGS: Lower Lungs: The visualized lower lungs are clear. Liver: Markedly cirrhotic liver appearance. No discrete mass or biliary ductal dilatation. Prominent upper abdominal varices including esophageal varices noted. Enlarged portal hilar lymph nodes again n oted. Spleen: Prominent splenomegaly. No focal splenic mass. Pancreas: Unremarkable without mass or calcification. Kidneys: Normal in size and shape. No evidence of mass or hydronephrosis. Adrenal Glands: Unremarkable. Aorta: The aorta and proximal iliac vessels are grossly unremarkable without aneurysmal dilation. Bowel/Mesentery: The bowel loops are grossly unremarkable. The cecum and sigmoid colon have a normal configuration. Minimal free peritoneal fluid. Abdominal Wall: Intact. Retroperitoneum: No evidence of adenopathy in the retrocrural, para-aortic, or deep pelvic regions. Bladder: Contours are smooth. Reproductive Organs: No abnormal masses or calcifications seen. Inguinal: The inguinal region is unremarkable without evidence of adenopathy. Bony Structures: Unremarkable. CONCLUSION: Markedly cirrhotic appearance of the liver with upper abdominal varices, including esophageal varices and prominent splenomegaly. Nonspecific enlarged periportal lymph nodes which were present previousl y. Trace ascites. Electronically signed by: Yosi Hoffman MD 02/20/2018 5:04 PM EDT
[2018-02-20 17:12] LABS: Bilirubin,Urine Negative (Negative); Clarity,Urine Slightly Cloudy (Clear); Color,Urine Yellow (Yellw/Straw); Glucose,Urine (UA) Negative (Negative); Leukocyte Esterase,Urine Trace (Negative); Nitrite,Urine Negative (Negative); Specific Gravity,Urine 1.025 (1.002-1.035)
[2018-02-20 17:21] LABS: Bacteria,Urine Many /hpf; Mucus,Urine Few /lpf (Occasional); Squamous Epithelial Cell,Urine 0-5 /hpf (0-5); WBC,Urine 0-5 /hpf (0-5)
[2018-02-20] MEDS: Sod Chloride 0.9% Inj 1,000 ML IV.CONT SCH (17:26)
[2018-02-20] MEDS: Octreotide Inj 500 MCG in Sodium Chlor 0.9% Inj 500 ML IV.CONT SCH (17:29)
[2018-02-20] MEDS: Morphine Inj 4 MG/ML Vial IV.PUSH PRN (19:30)
[2018-02-20] MEDS ORDERED: ALPRAZolam 0.25 MG Tablet PO ONE (20:20)
--- NOTE | 2018-02-20 20:44 | P.CONGI ---
History of Present Illness Consult date: 02/20/18 Consult reason: Acute upper GI bleed, hematemesis Chief complaint: Acute GI bleed History of Present Illness: Patient well-known to our service from a recent encounter with a similar situation presenting with GI bleed he underwent an upper endoscopy was found to have esophageal varices and those were banded the patient reports having had another episode of hematemesis started yesterday and he also reports abdominal pain cramping and discomfort he also felt lightheaded and dizzy but did not blackout the patient reports he drank half a beer for his birthday and shortly thereafter he had the episode of hematemesis currently patient is comfortable in bed with no further hematemesis or bowel movements with blood Review of Systems Review of systems Patient denies any headache blurry vision, he did report feeling lightheaded and dizzy denies any chest pain shortness of breath cough fever chills, Denies any palpitations or fatigue denies any polyuria dysuria hematuria, denies any numbness tingling or weakness, denies any skin rash pruritus or jaundice, denies any easy bruising or bleeding tendency, denies any recent change in mood PMFSH - History History Provided By: Patient - Medical History Medical History: Medical History (Last Reviewed 02/20/18 @ 16:35 by Shannan Sahni MD) Afib Hep C w/o coma, chronic Hypertension Liver cirrhosis Substance abuse - Surgical History Surgical History: Surgical History (Last Reviewed 02/20/18 @ 16:35 by Shannan Sahni MD) No history of previous surgery (Acute) - Family History Family History: Family History (Last Updated 02/20/18 @ 16:35 by Shannan Sahni MD) Other Heart problem - Tobacco History Second Hand Smoke Exposure: Yes Tobacco Use In Past 30 Days: Yes Smoking Status: Current every day smoker Tobacco Type: Cigarettes - Alcohol History How Often Do You Have a Drink Containing Alcohol: Never - Substance Use History Substance History: No History of Abuse - Travel History Recent Travel in the [place] Within the Last 8 Weeks: No Recent Travel Out of the Country Within the Last 8 Weeks: No - Immunization History Tetanus Immunization: <5 Years Medications and Allergies Active Medications: Active Medications Octreotide Acetate 500 mcg/ (Sodium Chloride) 500.5 mls @ 25.02 mls/hr IV.CONT .Q20H1M [facility] Last Infusion: 02/20/18 17:50 Dose: 25 mcg/hr, 25.02 mls/hr Ceftriaxone Sodium 1,000 mg/ (Sodium Chloride) 100 mls @ 200 mls/hr IV.SIG Q24H [facility] Sodium Chloride (Ns Inj) 1,000 mls @ 125 mls/hr IV.CONT .Q8H [facility] Last Infusion: 02/20/18 17:50 Dose: 125 mls/hr Morphine Sulfate (Morphine Inj) 2 mg IV.PUSH Q4H PRN PRN Reason: pain Last Admin: 02/20/18 19:30 Dose: 2 mg Ondansetron HCl (Zofran Inj) 4 mg IV.PUSH Q8H PRN PRN Reason: nausea Allergies Allergy/AdvReac Type Severity Reaction Status Date / Time codeine Allergy Severe HIVES Verified 02/20/18 14:36 phenytoin Allergy Severe HIVES Verified 02/20/18 14:36 Home Medications Medication Instructions Recorded Confirmed Type No Known Home Medications 02/20/18 02/20/18 History Exam Vital signs: Vital Signs 02/20/18 14:34 02/20/18 15:59 02/20/18 18:44 Temperature 98.9 F 98.1 F Pulse Rate 106 H 82 84 Respiratory Rate 16 18 18 Blood Pressure 121/59 L 139/63 136/64 Pulse Oximetry 100 99 97 Intake & Output 02/20/18 02/20/18 02/21/18 06:59 18:59 06:59 Intake Total 137 / 137 Output Total 200 / 200 Balance -63 / -63 Weight 78 kg Intake: IV 137 / 137 SandoSTATIN Inj 500 MCG In NS 5 / 5 Inj 500 ML @ 25 MCG/HR 25.02 mls/hr IV.CONT .Q20H1M [facility] Rx#: [id number] NS Inj 1,000 ML @ 125 mls/hr IV 32 / 32 .CONT .Q8H [facility] Rx#:[id number] Rocephin Inj 1,000 MG In NS Inj 100 / 100 100 ML @ 200 mls/hr IV.SIG ONCE ONE Rx#:[id number] Output: Urine 200 / 200 Other: Date of Last Bowel Movement 02/20/18 - Constitutional no acute distress - Routine HEENT Exam Head: Present: normocephalic, atraumatic Eye: Present: EOMI, PERRL - Routine Neck Exam Present: supple. Absent: JVD - Routine Respiratory Exam Present: CTA bilaterally - Routine Cardiovascular Exam Present: RRR, S1, S2. Absent: murmur, gallop, rubs - Routine Abdominal Exam Present: soft. Absent: tenderness, distended, rebound, guarding - Routine Extremities Exam Absent: cyanosis, clubbing, edema - Routine Skin Exam Present: dry, warm - Routine Neurological Exam Present: alert, oriented X3 Results - Labs CBC & Chem 7: 02/20/18 15:01 02/20/18 15:01 Labs: Laboratory Results - last 24 hr 02/20/18 02/20/18 02/20/18 15:01 15:01 15:01 CBC w Diff Slide review pending WBC 10.3 RBC 2.44 L Hgb 6.2 L* Hct 18.9 L* MCV 77.4 L MCH 25.5 L MCHC 32.9 RDW 21.3 H Plt Count 127 L MPV 7.8 Neut % (Auto) 80.0 H Lymph % (Auto) 12.5 [place] % (Auto) 6.6 Eos % (Auto) 0.6 Baso % (Auto) 0.3 Neut # (Auto) 8.1 H Lymph # (Auto) 1.3 [place] # (Auto) 0.7 Eos # (Auto) 0.1 Baso # (Auto) 0.0 WBC Differential . Diff Scan Auto diff confirmed Differential Comment . Platelet Estimate Low L Platelet Morphology Normal Ovalocytes 1+ H Sodium 137 Potassium 3.9 Chloride 104 Carbon Dioxide 25.0 Anion Gap 8 BUN 18 Creatinine 0.70 Estimated GFR Greater than 89 Random Glucose 123 H Calcium 7.5 L Magnesium 2.0 Total Bilirubin 1.0 AST 23 ALT 17 Alkaline Phosphatase 86 Total Protein 6.0 L Albumin 2.2 L Lipase 101 Ur Collection Type Urine Color Urine Clarity Urine pH Ur Specific [place] Urine Protein Urine Glucose (UA) Urine Ketones Urine Occult Blood Urine Nitrate Urine Bilirubin Urine Urobilinogen Ur Leukocyte Esterase Urine WBC Ur Squamous Epith Cells Urine Bacteria Urine Mucus Micro UA Comment Ur Microscopic Review Urine Culture Comments Blood Type A Negative Antibody Screen Negative MTS Gel Crossmatch 02/20/18 02/20/18 15:01 16:50 CBC w Diff WBC RBC Hgb Hct MCV MCH MCHC RDW Plt Count MPV Neut % (Auto) Lymph % (Auto) [place] % (Auto) Eos % (Auto) Baso % (Auto) Neut # (Auto) Lymph # (Auto) [place] # (Auto) Eos # (Auto) Baso # (Auto) WBC Differential Diff Scan Differential Comment Platelet Estimate Platelet Morphology Ovalocytes Sodium Potassium Chloride Carbon Dioxide Anion Gap BUN Creatinine Estimated GFR Random Glucose Calcium Magnesium Total Bilirubin AST ALT Alkaline Phosphatase Total Protein Albumin Lipase Ur Collection Type Clean catch Urine Color Yellow Urine Clarity Slightly cloudy Urine pH 6.0 Ur Specific [place] 1.025 Urine Protein Negative Urine Glucose (UA) Negative Urine Ketones Trace H Urine Occult Blood Negative Urine Nitrate Negative Urine Bilirubin Negative Urine Urobilinogen 1.0 Ur Leukocyte Esterase Trace H Urine WBC 0-5 Ur Squamous Epith Cells 0-5 Urine Bacteria Many H Urine Mucus Few H Micro UA Comment Culture indicated Ur Microscopic Review Microscopic reviewed Urine Culture Comments Culture indicated Blood Type Antibody Screen MTS Gel Crossmatch See Detail - Imaging Impressions Abdomen/Pelvis CT 02/20/18 15:11 CONCLUSION: Markedly cirrhotic appearance of the liver with upper abdominal varices, including esophageal varices and prominent splenomegaly. Nonspecific enlarged periportal lymph nodes which were present previously. Trace ascites. Assessment and Plan - Plan Patient presenting with hematemesis with known underlying hep C and cirrhosis with a history of alcohol intake that he had stopped but apparently he celebrated his birthday yesterday with another drink Currently patient is hemodynamically stable and without any active bleeding Agree with current supportive measures including the IV octreotide We will proceed with an upper endoscopy possible banding tomorrow Monitor labs and transfuse as needed
[2018-02-21] MEDS: Sod Chloride 0.9% Inj 1,000 ML IV.CONT SCH ×4 (01:46→21:42)
[2018-02-21 03:51] LABS: Hematocrit 21.3 % (39.0-51.0); Hemoglobin 7.1 gm/dL (13.0-17.0)
[2018-02-21 04:00] LABS: INR 1.3 Ratio; Prothrombin Time 13.6 sec (9.8-11.6)
[2018-02-21] MEDS: Morphine Inj 4 MG/ML Vial IV.PUSH PRN ×5 (04:34→21:43)
[2018-02-21 08:49] VITALS: RESP 18
[2018-02-21 08:52] LABS: Hematocrit 22.3 % (39.0-51.0); Hemoglobin 7.4 gm/dL (13.0-17.0)
--- NOTE | 2018-02-21 10:07 | P.PNIM ---
Subjective Interval history: Status post transfusion of 2 units packed red blood cells, patient's hemoglobin is remaining below 7.5. He complains of abdominal pain. He says he has had a previous episode of GI bleeding but did not have a colonoscopy at that time. Physical Exam Vital signs: Vital Signs 02/20/18 14:34 02/20/18 15:59 02/20/18 18:44 Temperature 98.9 F 98.1 F Pulse Rate 106 H 82 84 Respiratory Rate 16 18 18 Blood Pressure 121/59 L 139/63 136/64 Pulse Oximetry 100 99 97 02/20/18 21:17 02/20/18 21:36 02/20/18 23:33 Temperature 98.2 F 97.8 F 97.4 F L Pulse Rate 73 70 71 Respiratory Rate 16 18 18 Blood Pressure 124/56 L 117/56 L 129/73 Pulse Oximetry 97 96 99 02/20/18 23:39 02/20/18 23:53 02/20/18 23:54 Temperature 97.4 F L 97.4 F L 97.4 F L Pulse Rate 71 67 71 Respiratory Rate 18 18 Blood Pressure 129/73 141/67 H 124/84 Pulse Oximetry 99 98 99 02/21/18 04:00 02/21/18 07:55 Temperature 97.8 F 97.8 F Pulse Rate 70 67 Respiratory Rate 18 18 Blood Pressure 132/71 131/72 Pulse Oximetry 100 98 Intake & Output 02/20/18 02/21/18 02/21/18 18:59 06:59 18:59 Intake Total 137 / 137 2635 / 2635 Output Total 200 / 200 1450 / 1450 Balance -63 / -63 1185 / 1185 Weight 78 kg 80 kg Intake: IV 137 / 137 1835 / 1835 SandoSTATIN Inj 500 MCG In NS 5 / 5 311 / 311 Inj 500 ML @ 25 MCG/HR 25.02 mls/hr IV.CONT .Q20H1M [facility] Rx#: [id number] NS Inj 1,000 ML @ 125 mls/hr IV 32 / 1524 / 1524 .CONT .Q8H [facility] Rx#:[id number] Rocephin Inj 1,000 MG In NS Inj 100 / 100 100 ML @ 200 mls/hr IV.SIG ONCE ONE Rx#:[id number] Intake (Blood Product) Amt 800 / 800 Rbc As-3 Leukoreduced Unit 400 / 400 [id number] Rbc As-3 Leukoreduced Unit 400 / 400 [id number] Output: Urine 200 / 200 1450 / 1450 Other: Date of Last Bowel Movement 02/20/18 Narrative: GENERAL: NAD, A&Ox3 HEAD: Normocephalic. NECK: Supple, trachea midline. No lymphadenopathy. EYES: No scleral icterus. No injection or drainage. CARDIOVASCULAR: Regular rate and rhythm without murmurs, gallops, or rubs. RESPIRATORY: Breath sounds equal bilaterally. No accessory muscle use. GASTROINTESTINAL: Abdomen soft, tender but no guarding, nondistended. MUSCULOSKELETAL: No cyanosis, or edema. SKIN: Warm and dry. NEURO: No focal neurological deficits. Results - Labs CBC & Chem 7: 02/21/18 08:08 02/20/18 15:01 Laboratory Results - last 24 hr 02/20/18 02/20/18 02/20/18 15:01 15:01 15:01 CBC w Diff Slide review pending WBC 10.3 RBC 2.44 L Hgb 6.2 L* Hct 18.9 L* MCV 77.4 L MCH 25.5 L MCHC 32.9 RDW 21.3 H Plt Count 127 L MPV 7.8 Neut % (Auto) 80.0 H Lymph % (Auto) 12.5 [place] % (Auto) 6.6 Eos % (Auto) 0.6 Baso % (Auto) 0.3 Neut # (Auto) 8.1 H Lymph # (Auto) 1.3 [place] # (Auto) 0.7 Eos # (Auto) 0.1 Baso # (Auto) 0.0 WBC Differential . Diff Scan Auto diff confirmed Differential Comment . Platelet Estimate Low L Platelet Morphology Normal Ovalocytes 1+ H PT INR Sodium 137 Potassium 3.9 Chloride 104 Carbon Dioxide 25.0 Anion Gap 8 BUN 18 Creatinine 0.70 Estimated GFR Greater than 89 Random Glucose 123 H Calcium 7.5 L Magnesium 2.0 Total Bilirubin 1.0 AST 23 ALT 17 Alkaline Phosphatase 86 Total Protein 6.0 L Albumin 2.2 L Lipase 101 Ur Collection Type Urine Color Urine Clarity Urine pH Ur Specific [place] Urine Protein Urine Glucose (UA) Urine Ketones Urine Occult Blood Urine Nitrate Urine Bilirubin Urine Urobilinogen Ur Leukocyte Esterase Urine WBC Ur Squamous Epith Cells Urine Bacteria Urine Mucus Micro UA Comment Ur Microscopic Review Urine Culture Comments Blood Type A Negative Antibody Screen Negative MTS Gel Crossmatch 02/20/18 02/20/18 02/21/18 15:01 16:50 03:39 CBC w Diff WBC RBC Hgb 7.1 L Hct 21.3 L MCV MCH MCHC RDW Plt Count MPV Neut % (Auto) Lymph % (Auto) [place] % (Auto) Eos % (Auto) Baso % (Auto) Neut # (Auto) Lymph # (Auto) [place] # (Auto) Eos # (Auto) Baso # (Auto) WBC Differential Diff Scan Differential Comment Platelet Estimate Platelet Morphology Ovalocytes PT INR Sodium Potassium Chloride Carbon Dioxide Anion Gap BUN Creatinine Estimated GFR Random Glucose Calcium Magnesium Total Bilirubin AST ALT Alkaline Phosphatase Total Protein Albumin Lipase Ur Collection Type Clean catch Urine Color Yellow Urine Clarity Slightly cloudy Urine pH 6.0 Ur Specific [place] 1.025 Urine Protein Negative Urine Glucose (UA) Negative Urine Ketones Trace H Urine Occult Blood Negative Urine Nitrate Negative Urine Bilirubin Negative Urine Urobilinogen 1.0 Ur Leukocyte Esterase Trace H Urine WBC 0-5 Ur Squamous Epith Cells 0-5 Urine Bacteria Many H Urine Mucus Few H Micro UA Comment Culture indicated Ur Microscopic Review Microscopic reviewed Urine Culture Comments Culture indicated Blood Type Antibody Screen MTS Gel Crossmatch See Detail 02/21/18 02/21/18 03:39 08:08 CBC w Diff WBC RBC Hgb 7.4 L Hct 22.3 L MCV MCH MCHC RDW Plt Count MPV Neut % (Auto) Lymph % (Auto) [place] % (Auto) Eos % (Auto) Baso % (Auto) Neut # (Auto) Lymph # (Auto) [place] # (Auto) Eos # (Auto) Baso # (Auto) WBC Differential Diff Scan Differential Comment Platelet Estimate Platelet Morphology Ovalocytes PT 13.6 H INR 1.3 Sodium Potassium Chloride Carbon Dioxide Anion Gap BUN Creatinine Estimated GFR Random Glucose Calcium Magnesium Total Bilirubin AST ALT Alkaline Phosphatase Total Protein Albumin Lipase Ur Collection Type Urine Color Urine Clarity Urine pH Ur Specific [place] Urine Protein Urine Glucose (UA) Urine Ketones Urine Occult Blood Urine Nitrate Urine Bilirubin Urine Urobilinogen Ur Leukocyte Esterase Urine WBC Ur Squamous Epith Cells Urine Bacteria Urine Mucus Micro UA Comment Ur Microscopic Review Urine Culture Comments Blood Type Antibody Screen MTS Gel Crossmatch - Imaging Impressions Abdomen/Pelvis CT 02/20/18 15:11 CONCLUSION: Markedly cirrhotic appearance of the liver with upper abdominal varices, including esophageal varices and prominent splenomegaly. Nonspecific enlarged periportal lymph nodes which were present previously. Trace ascites. Assessment and Plan - Assessment (1) GI bleed Code(s): K92.2 - Gastrointestinal hemorrhage, unspecified Status: Acute - Plan 33-year-old male admitted secondary to abdominal pain with GI bleed and acute blood loss anemia GI bleed Acute blood loss anemia Abdominal pain 2 units packed red blood cells transfused overnight 2 additional units packed red blood cells ordered for transfusion today Continue to monitor H&H GI following Anticipate procedure Rule out Crohn's or ulcerative colitis Continue as needed pain treatments Avoid blood thinners Anxiety PRN ativan ordered DVT prophylaxis SCDs
[2018-02-21] MEDS ORDERED: Sodium Chlor 0.9% Inj 250 ML IV.SIG SCH (11:00)
[2018-02-21] MEDS ORDERED: Lidocaine PF 1% Inj 5 ML Syringe OTHER ONE (11:00)
--- NOTE | 2018-02-21 11:37 | P.PCN ---
Date of procedure: 02/21/18 Pre-op diagnosis: Hematemesis, history of esophageal varices and cirrhosis Procedure: PROCEDURE PERFORMED EGD with banding PROCEDURE: The procedure, risks and benefits were discussed with Patient/POA and informed consent was obtained. Anesthesia sedated Patient with Diprivan. Patient was placed in the left lateral decubitus position. EGD: The Pentax videoscope was introduced through the oropharynx and advanced to the second portion of the duodenum under direct visualization. Retroflexion was performed in the stomach. FINDINGS: The esophagus the patient was noted to have 3 columns of grade 2-3 esophageal varices with one column showing a nipple sign suggesting that this was the culprit for bleeding 3 bands were applied in the distal esophagus during the procedure there was a small amount of bleeding noted about 50 cc by the end of the procedure there was no further active bleeding The stomach the patient has mild to moderate portal hypertensive gastropathy otherwise gastric mucosa unremarkable and no gastric varices The duodenum this was normal ESTIMATED BLOOD LOSS: About 50 cc SPECIMENS REMOVED: None COMPLICATIONS: None IMPRESSION: Esophageal varices Portal hypertensive gastropathy PLAN: Continue with octreotide drip and PPI Monitor labs and transfuse as needed Correct any coagulopathy Recommend EGD in 1 month Clear liquid diet for today Do not place NG tube under any circumstance at this point Anesthesia: MAC Surgeon: Kirk Alexander Condition: stable Disposition: floor
[2018-02-21] MEDS ORDERED: *Ondansetron Inj 4 MG/2 ML Vial PERIprocedural Use ONLY ONE (11:45)
[2018-02-21] MEDS ORDERED: Morphine Sulfate Inj 2 MG/ML Vial IV.PUSH PRN (11:45)
[2018-02-21] MEDS: Octreotide Inj 500 MCG in Sodium Chlor 0.9% Inj 500 ML IV.CONT SCH (14:22)
[2018-02-21 21:01] LABS: Hematocrit 25.4 % (39.0-51.0); Hemoglobin 8.9 gm/dL (13.0-17.0)
[2018-02-22] MEDS: Sod Chloride 0.9% Inj 1,000 ML IV.CONT SCH ×4 (00:33→21:47)
[2018-02-22] MEDS: Morphine Inj 4 MG/ML Vial IV.PUSH PRN ×2 (08:18→13:11)
[2018-02-22 08:44] LABS: Baso % (Auto) 0.5 % (0.0-2.0); Eos # (Auto) 0.1 th/mm3 (0.0-0.4); Eos % (Auto) 2.5 % (0.0-4.0); Hemoglobin 8.1 gm/dL (13.0-17.0); Lymph # (Auto) 1.7 th/mm3 (1.0-4.8); Lymph % (Auto) 28.8 % (9.0-44.0); Mean Corpuscular HGB Conc 33.6 % (32.0-36.0); Mean Corpuscular Hemoglobin 27.7 pg (27.0-34.0); Mean Corpuscular Volume 82.4 fL (80.0-100.0); Mean Platelet Volume 7.9 fL (7.0-11.0); Mono # (Auto) 0.5 th/mm3 (0.0-0.9); Mono % (Auto) 7.9 % (0.0-8.0); Neut # (Auto) 3.5 th/mm3 (1.8-7.7); Neut % (Auto) 60.3 % (16.0-70.0); Platelet Count 95 th/mm3 (150-450); Red Blood Count 2.92 mil/mm3 (4.50-5.90); White Blood Count 5.9 th/mm3 (4.0-11.0)
[2018-02-22 08:55] LABS: Anion Gap 8 meq/L (5-15); Aspartate Aminotransferase 20 U/L (15-37); Blood Urea Nitrogen 8 mg/dL (7-18); Calcium 7.2 mg/dL (8.5-10.1); Carbon Dioxide 22.9 meq/L (21.0-32.0); Chloride 111 meq/L (98-107); Glomerular Filtration Rate Greater Than 89 mL/min (>89); Glucose,Random 106 mg/dL (74-106); Potassium 3.4 meq/L (3.5-5.1); Sodium 142 meq/L (136-145)
[2018-02-22 09:31] LABS: Platelet Morphology Normal (Normal)
[2018-02-22 09:34] LABS: Alanine Aminotransferase 17 U/L (12-78); Alkaline Phosphatase 79 U/L (45-117); Total Protein 5.6 g/dL (6.4-8.2)
[2018-02-22] MEDS: Octreotide Inj 500 MCG in Sodium Chlor 0.9% Inj 500 ML IV.CONT SCH (10:50)
--- NOTE | 2018-02-22 13:38 | P.PNIM ---
Subjective Interval history: Downward trend in Hgb. No reports of hematemesis. Pain controlled when seen. Physical Exam Vital signs: Vital Signs 02/21/18 13:46 02/21/18 16:00 02/21/18 16:12 Temperature 98.1 F 98.3 F Pulse Rate 59 L 60 54 L Respiratory Rate 18 18 18 Blood Pressure 137/72 157/75 H 157/75 H Pulse Oximetry 99 99 02/21/18 16:31 02/21/18 20:00 02/22/18 00:00 Temperature 97.9 F 97.9 F 97.6 F Pulse Rate 82 69 54 L Respiratory Rate 18 18 18 Blood Pressure 160/77 H 113/56 L 106/55 L Pulse Oximetry 99 99 02/22/18 04:00 02/22/18 08:00 02/22/18 12:00 Temperature 97.7 F 97.8 F 98.3 F Pulse Rate 61 65 59 L Respiratory Rate 18 18 18 Blood Pressure 117/57 L 138/73 139/70 Pulse Oximetry 96 97 99 Intake & Output 02/21/18 02/22/18 02/22/18 18:59 06:59 18:59 Intake Total 978.5 / 978.5 2630.5 / 2630.5 120 / 120 Output Total 1400 / 1400 Balance 978.5 / 978.5 1230.5 / 1230.5 120 / 120 Weight 81 kg Intake: IV 728.5 / 728.5 2630.5 / 2630.5 120 / 120 SandoSTATIN Inj 500 MCG In NS 184.5 / 184.5 380.5 / 380.5 120 / 120 Inj 500 ML @ 25 MCG/HR 25.02 mls/hr IV.CONT .Q20H1M [facility] Rx#: [id number] NS Inj 1,000 ML @ 125 mls/hr IV 444 / 444 1999 / 1999 .CONT .Q8H [facility] Rx#:[id number] NS Inj 250 ML @ 15 mls/hr IV. 250 / 250 SIG ONCE [facility] Rx#:[id number] Rocephin Inj 1,000 MG In NS Inj 100 / 100 100 ML @ 200 mls/hr IV.SIG Q24H [facility] Rx#:[id number] Anesthesia Amount 250 / 250 Intake (Blood Product) Amt 0 / 0 Rbc As-3 Leukoreduced Unit 0 / 0 [id number] Rbc As-3 Leukoreduced Unit 0 / 0 [id number] Output: Urine 1400 / 1400 Other: # Voids 7 Date of Last Bowel Movement 02/21/18 02/21/18 # Bowel Movements 1 Narrative: GENERAL: NAD, A&Ox3 HEAD: Normocephalic. NECK: Supple, trachea midline. No lymphadenopathy. EYES: No scleral icterus. No injection or drainage. CARDIOVASCULAR: Regular rate and rhythm without murmurs, gallops, or rubs. RESPIRATORY: Breath sounds equal bilaterally. No accessory muscle use. GASTROINTESTINAL: Abdomen soft, tender but no guarding, nondistended. MUSCULOSKELETAL: No cyanosis, or edema. SKIN: Warm and dry. NEURO: No focal neurological deficits. Results - Labs CBC & Chem 7: 02/22/18 06:49 02/22/18 06:49 Laboratory Results - last 24 hr 02/21/18 02/21/18 02/22/18 10:03 20:06 06:49 WBC 5.9 RBC 2.92 L Hgb 8.9 L 8.1 L Hct 25.4 L 24.0 L MCV 82.4 D MCH 27.7 MCHC 33.6 RDW 20.0 H Plt Count 95 L MPV 7.9 Prelim Diff (Auto) Slide review pending Neut % (Auto) 60.3 Lymph % (Auto) 28.8 [place] % (Auto) 7.9 Eos % (Auto) 2.5 Baso % (Auto) 0.5 Neut # (Auto) 3.5 Lymph # (Auto) 1.7 [place] # (Auto) 0.5 Eos # (Auto) 0.1 Baso # (Auto) 0.0 WBC Differential . Diff Scan Auto diff confirmed Differential Comment . Platelet Estimate Low L Platelet Morphology Normal Sodium Potassium Chloride Carbon Dioxide Anion Gap BUN Creatinine Estimated GFR Random Glucose Calcium Prot Corrected Calcium Total Bilirubin AST ALT Alkaline Phosphatase Total Protein Albumin MTS Gel Crossmatch See Detail 02/22/18 06:49 WBC RBC Hgb Hct MCV MCH MCHC RDW Plt Count MPV Prelim Diff (Auto) Neut % (Auto) Lymph % (Auto) [place] % (Auto) Eos % (Auto) Baso % (Auto) Neut # (Auto) Lymph # (Auto) [place] # (Auto) Eos # (Auto) Baso # (Auto) WBC Differential Diff Scan Differential Comment Platelet Estimate Platelet Morphology Sodium 142 Potassium 3.4 L Chloride 111 H Carbon Dioxide 22.9 Anion Gap 8 BUN 8 Creatinine 0.62 Estimated GFR Greater than 89 Random Glucose 106 Calcium 7.2 L* Prot Corrected Calcium 8.0 L Total Bilirubin 1.1 H AST 20 ALT 17 Alkaline Phosphatase 79 Total Protein 5.6 L Albumin 2.0 L MTS Gel Crossmatch Microbiology 02/20/18 16:50 Clean Catch Urine Urine Culture - Final Aerococcus urinae Assessment and Plan - Assessment (1) GI bleed Code(s): K92.2 - Gastrointestinal hemorrhage, unspecified Status: Acute - Plan 33-year-old male admitted secondary to abdominal pain with GI bleed and acute blood loss anemia Improved status post EGD with banding. Follow H/H for stability. Continue IV PPI and Octreotide. GI bleed Acute blood loss anemia Abdominal pain 2 units packed red blood cells transfused overnight 2 additional units packed red blood cells ordered for transfusion today Continue to monitor H&H GI following Anticipate procedure Rule out Crohn's or ulcerative colitis Continue as needed pain treatments Avoid blood thinners Continue IV PPI and Octreotide. Anxiety PRN ativan ordered DVT prophylaxis SCDs
--- NOTE | 2018-02-22 15:59 | P.PNGI ---
Subjective Interval history: Patient resting comfortably with eyes closed. Awakens and denies any abdominal discomfort. Denies any obvious noted bleeding or nausea vomiting. States tolerating clear liquid diet well <Naila Hernandez - Last Filed: 02/22/18 15:52> Physical Exam Vital signs: Vital Signs 02/21/18 16:00 02/21/18 16:12 02/21/18 16:31 Temperature 98.3 F 97.9 F Pulse Rate 60 54 L 82 Respiratory Rate 18 18 18 Blood Pressure 157/75 H 157/75 H 160/77 H Pulse Oximetry 99 99 02/21/18 20:00 02/22/18 00:00 02/22/18 04:00 Temperature 97.9 F 97.6 F 97.7 F Pulse Rate 69 54 L 61 Respiratory Rate 18 18 18 Blood Pressure 113/56 L 106/55 L 117/57 L Pulse Oximetry 99 99 96 02/22/18 08:00 02/22/18 12:00 Temperature 97.8 F 98.3 F Pulse Rate 65 59 L Respiratory Rate 18 18 Blood Pressure 138/73 139/70 Pulse Oximetry 97 99 Intake & Output 02/21/18 02/22/18 02/22/18 18:59 06:59 18:59 Intake Total 978.5 / 978.5 2630.5 / 2630.5 120 / 120 Output Total 1400 / 1400 Balance 978.5 / 978.5 1230.5 / 1230.5 120 / 120 Weight 81 kg Intake: IV 728.5 / 728.5 2630.5 / 2630.5 120 / 120 SandoSTATIN Inj 500 MCG In NS 184.5 / 184.5 380.5 / 380.5 120 / 120 Inj 500 ML @ 25 MCG/HR 25.02 mls/hr IV.CONT .Q20H1M [facility] Rx#: [id number] NS Inj 1,000 ML @ 125 mls/hr IV 444 / 444 1999 / 1999 .CONT .Q8H [facility] Rx#:[id number] NS Inj 250 ML @ 15 mls/hr IV. 250 / 250 SIG ONCE [facility] Rx#:[id number] Rocephin Inj 1,000 MG In NS Inj 100 / 100 100 ML @ 200 mls/hr IV.SIG Q24H [facility] Rx#:[id number] Anesthesia Amount 250 / 250 Intake (Blood Product) Amt 0 / 0 Rbc As-3 Leukoreduced Unit 0 / 0 [id number] Rbc As-3 Leukoreduced Unit 0 / 0 [id number] Output: Urine 1400 / 1400 Other: # Voids 7 Date of Last Bowel Movement 02/21/18 02/21/18 # Bowel Movements 1 - Constitutional no acute distress - Routine HEENT Exam Head: Present: normocephalic - Routine Respiratory Exam Present: CTA bilaterally. Absent: accessory muscle use - Routine Abdominal Exam Present: normoactive bowel sounds. Absent: tenderness, guarding - Routine Skin Exam Present: dry, warm - Routine Neurological Exam Present: alert, oriented X3 - Routine Psychiatric Exam Present: normal affect, cooperative <Hernandez,Naila - Last Filed: 02/22/18 15:52> Vital signs: Vital Signs 02/21/18 20:00 02/22/18 00:00 02/22/18 04:00 Temperature 97.9 F 97.6 F 97.7 F Pulse Rate 69 54 L 61 Respiratory Rate 18 18 18 Blood Pressure 113/56 L 106/55 L 117/57 L Pulse Oximetry 99 99 96 02/22/18 08:00 02/22/18 12:00 02/22/18 16:00 Temperature 97.8 F 98.3 F 98.6 F Pulse Rate 65 59 L 53 L Respiratory Rate 18 18 18 Blood Pressure 138/73 139/70 141/66 H Pulse Oximetry 97 99 99 02/22/18 17:25 Temperature Pulse Rate Respiratory Rate Blood Pressure Pulse Oximetry 99 Intake & Output 02/22/18 02/22/18 02/23/18 06:59 18:59 06:59 Intake Total 2630.5 / 2630.5 220 / 220 Output Total 1400 / 1400 675 / 675 Balance 1230.5 / 1230.5 -455 / -455 Weight 81 kg Intake: IV 2630.5 / 2630.5 220 / 220 SandoSTATIN Inj 500 MCG In NS 380.5 / 380.5 120 / 120 Inj 500 ML @ 25 MCG/HR 25.02 mls/hr IV.CONT .Q20H1M [facility] Rx#: [id number] NS Inj 1,000 ML @ 125 mls/hr IV 1999 / 1999 .CONT .Q8H [facility] Rx#:[id number] NS Inj 250 ML @ 15 mls/hr IV. 250 / 250 SIG ONCE [facility] Rx#:[id number] Rocephin Inj 1,000 MG In NS Inj 100 / 100 100 ML @ 200 mls/hr IV.SIG Q24H [facility] Rx#:[id number] Output: Urine 1400 / 1400 675 / 675 Other: Date of Last Bowel Movement 02/21/18 <Kirk Alexander E - Last Filed: 02/22/18 19:31> Results - Labs CBC & Chem 7: 02/22/18 06:49 02/22/18 06:49 Laboratory Results - last 24 hr 02/21/18 02/21/18 02/22/18 10:03 20:06 06:49 WBC 5.9 RBC 2.92 L Hgb 8.9 L 8.1 L Hct 25.4 L 24.0 L MCV 82.4 D MCH 27.7 MCHC 33.6 RDW 20.0 H Plt Count 95 L MPV 7.9 Prelim Diff (Auto) Slide review pending Neut % (Auto) 60.3 Lymph % (Auto) 28.8 [place] % (Auto) 7.9 Eos % (Auto) 2.5 Baso % (Auto) 0.5 Neut # (Auto) 3.5 Lymph # (Auto) 1.7 [place] # (Auto) 0.5 Eos # (Auto) 0.1 Baso # (Auto) 0.0 WBC Differential . Diff Scan Auto diff confirmed Differential Comment . Platelet Estimate Low L Platelet Morphology Normal Sodium Potassium Chloride Carbon Dioxide Anion Gap BUN Creatinine Estimated GFR Random Glucose Calcium Prot Corrected Calcium Total Bilirubin AST ALT Alkaline Phosphatase Total Protein Albumin MTS Gel Crossmatch See Detail 02/22/18 06:49 WBC RBC Hgb Hct MCV MCH MCHC RDW Plt Count MPV Prelim Diff (Auto) Neut % (Auto) Lymph % (Auto) [place] % (Auto) Eos % (Auto) Baso % (Auto) Neut # (Auto) Lymph # (Auto) [place] # (Auto) Eos # (Auto) Baso # (Auto) WBC Differential Diff Scan Differential Comment Platelet Estimate Platelet Morphology Sodium 142 Potassium 3.4 L Chloride 111 H Carbon Dioxide 22.9 Anion Gap 8 BUN 8 Creatinine 0.62 Estimated GFR Greater than 89 Random Glucose 106 Calcium 7.2 L* Prot Corrected Calcium 8.0 L Total Bilirubin 1.1 H AST 20 ALT 17 Alkaline Phosphatase 79 Total Protein 5.6 L Albumin 2.0 L MTS Gel Crossmatch Microbiology 02/20/18 16:50 Clean Catch Urine Urine Culture - Final Aerococcus urinae <Naila Hernandez - Last Filed: 02/22/18 15:52> - Labs CBC & Chem 7: 02/22/18 06:49 02/22/18 06:49 Laboratory Results - last 24 hr 02/21/18 02/22/18 02/22/18 20:06 06:49 06:49 WBC 5.9 RBC 2.92 L Hgb 8.9 L 8.1 L Hct 25.4 L 24.0 L MCV 82.4 D MCH 27.7 MCHC 33.6 RDW 20.0 H Plt Count 95 L MPV 7.9 Prelim Diff (Auto) Slide review pending Neut % (Auto) 60.3 Lymph % (Auto) 28.8 [place] % (Auto) 7.9 Eos % (Auto) 2.5 Baso % (Auto) 0.5 Neut # (Auto) 3.5 Lymph # (Auto) 1.7 [place] # (Auto) 0.5 Eos # (Auto) 0.1 Baso # (Auto) 0.0 WBC Differential . Diff Scan Auto diff confirmed Differential Comment . Platelet Estimate Low L Platelet Morphology Normal Sodium 142 Potassium 3.4 L Chloride 111 H Carbon Dioxide 22.9 Anion Gap 8 BUN 8 Creatinine 0.62 Estimated GFR Greater than 89 Random Glucose 106 Calcium 7.2 L* Prot Corrected Calcium 8.0 L Total Bilirubin 1.1 H AST 20 ALT 17 Alkaline Phosphatase 79 Total Protein 5.6 L Albumin 2.0 L Microbiology 02/20/18 16:50 Clean Catch Urine Urine Culture - Final Aerococcus urinae <Kirk Alexander - Last Filed: 02/22/18 19:31> Assessment and Plan - Plan 02/22/2018 Hematemesis /GI bleed Patient post EGD findings include esophageal varices and portal hypertensive gastropathy. Patient maintained on octreotide drip. Patient denies any obvious noted bleeding, denies any nausea or vomiting. Hemoglobin 8.1 hematocrit 24.0 stable. Total bilirubin 1.1 AST 28 alk phos 79 Plan -Clear liquid diet -No NG placement -Recommended repeat EGD in 1 month -Continue to monitor H&H -Avoid anticoagulants -Continue PPI -Continue octreotide -Supportive care -Further recommendations to follow This patient has been seen by myself and Dr. Alexander and this note is written on his behalf - Attending Attestation Dr. Alexander <Naila Hernandez - Last Filed: 02/22/18 15:52> - Plan Patient seen and examined Agree with above H&P Monitor labs Continue with current supportive care <Kirk Alexander - Last Filed: 02/22/18 19:31>
[2018-02-23] MEDS: Sod Chloride 0.9% Inj 1,000 ML IV.CONT SCH ×5 (02:43→21:11)
[2018-02-23] MEDS: Octreotide Inj 500 MCG in Sodium Chlor 0.9% Inj 500 ML IV.CONT SCH (05:21)
[2018-02-23 07:01] LABS: Baso % (Auto) 0.5 % (0.0-2.0); Eos # (Auto) 0.1 th/mm3 (0.0-0.4); Eos % (Auto) 2.5 % (0.0-4.0); Hematocrit 24.7 % (39.0-51.0); Hemoglobin 8.1 gm/dL (13.0-17.0); Lymph # (Auto) 1.8 th/mm3 (1.0-4.8); Lymph % (Auto) 32.3 % (9.0-44.0); Mean Corpuscular HGB Conc 32.6 % (32.0-36.0); Mean Corpuscular Hemoglobin 27.9 pg (27.0-34.0); Mean Corpuscular Volume 85.4 fL (80.0-100.0); Mean Platelet Volume 7.6 fL (7.0-11.0); Mono # (Auto) 0.5 th/mm3 (0.0-0.9); Mono % (Auto) 8.2 % (0.0-8.0); Neut # (Auto) 3.1 th/mm3 (1.8-7.7); Neut % (Auto) 56.5 % (16.0-70.0); Platelet Count 95 th/mm3 (150-450); Red Blood Count 2.89 mil/mm3 (4.50-5.90); Red Cell Distribution Width 19.8 % (11.6-17.2); White Blood Count 5.6 th/mm3 (4.0-11.0)
[2018-02-23 07:32] LABS: Alanine Aminotransferase 18 U/L (12-78); Alkaline Phosphatase 78 U/L (45-117); Anion Gap 7 meq/L (5-15); Aspartate Aminotransferase 25 U/L (15-37); Blood Urea Nitrogen 7 mg/dL (7-18); Calcium 7.1 mg/dL (8.5-10.1); Carbon Dioxide 23.5 meq/L (21.0-32.0); Chloride 112 meq/L (98-107); Glomerular Filtration Rate Greater Than 89 mL/min (>89); Glucose,Random 107 mg/dL (74-106); Potassium 3.5 meq/L (3.5-5.1); Sodium 142 meq/L (136-145); Total Protein 5.5 g/dL (6.4-8.2)
[2018-02-23 08:02] LABS: Platelet Morphology Normal (Normal)
--- NOTE | 2018-02-23 11:14 | P.PNIM ---
Subjective Interval history: No reports of further bleeding from the patient. His pain is improved. He status post EGD with banding of varices. Currently he remains on octreotide and PPI drips. Hemoglobin shows stability overnight with hemoglobin of 8.1 measured yesterday and continuation 8.1 this morning. Physical Exam Vital signs: Vital Signs 02/22/18 12:00 02/22/18 16:00 02/22/18 17:25 Temperature 98.3 F 98.6 F Pulse Rate 50 L 58 L Respiratory Rate 18 18 Blood Pressure 139/70 141/66 H Pulse Oximetry 99 99 99 02/22/18 20:00 02/23/18 00:00 02/23/18 04:00 Temperature 98.3 F 97.8 F 98.2 F Pulse Rate 80 58 L 55 L Respiratory Rate 18 18 18 Blood Pressure 110/53 L 108/55 L 120/58 L Pulse Oximetry 94 L 98 95 02/23/18 08:00 02/23/18 09:49 Temperature 98 F Pulse Rate 54 L Respiratory Rate 18 Blood Pressure 130/63 Pulse Oximetry 97 97 Intake & Output 02/22/18 02/23/18 02/23/18 18:59 06:59 18:59 Intake Total 940 / 940 3700.5 / 3700.5 Output Total 1575 / 1575 Balance -635 / -635 3700.5 / 3700.5 Weight 81.7 kg Intake: IV 220 / 220 2500.5 / 2500.5 SandoSTATIN Inj 500 MCG In NS 120 / 120 500.5 / 500.5 Inj 500 ML @ 25 MCG/HR 25.02 mls/hr IV.CONT .Q20H1M [facility] Rx#: [id number] NS Inj 1,000 ML @ 125 mls/hr IV 1999 / 1999 .CONT .Q8H [facility] Rx#:[id number] Rocephin Inj 1,000 MG In NS Inj 100 / 100 100 ML @ 200 mls/hr IV.SIG Q24H [facility] Rx#:[id number] Oral 720 / 720 1200 / 1200 Output: Urine 1575 / 1575 Other: # Voids 2 Date of Last Bowel Movement 02/21/18 02/21/18 Narrative: GENERAL: NAD, A&Ox3 HEAD: Normocephalic. NECK: Supple, trachea midline. No lymphadenopathy. EYES: No scleral icterus. No injection or drainage. CARDIOVASCULAR: Regular rate and rhythm without murmurs, gallops, or rubs. RESPIRATORY: Breath sounds equal bilaterally. No accessory muscle use. GASTROINTESTINAL: Abdomen soft, tender but no guarding, nondistended. MUSCULOSKELETAL: No cyanosis, or edema. SKIN: Warm and dry. NEURO: No focal neurological deficits. Results - Labs CBC & Chem 7: 02/23/18 05:20 02/23/18 05:20 Laboratory Results - last 24 hr 02/23/18 02/23/18 05:20 05:20 WBC 5.6 RBC 2.89 L Hgb 8.1 L Hct 24.7 L MCV 85.4 MCH 27.9 MCHC 32.6 RDW 19.8 H Plt Count 95 L MPV 7.6 Prelim Diff (Auto) Slide review pending Neut % (Auto) 56.5 Lymph % (Auto) 32.3 [place] % (Auto) 8.2 H Eos % (Auto) 2.5 Baso % (Auto) 0.5 Neut # (Auto) 3.1 Lymph # (Auto) 1.8 [place] # (Auto) 0.5 Eos # (Auto) 0.1 Baso # (Auto) 0.0 WBC Differential . Diff Scan Auto diff confirmed Differential Comment . Platelet Estimate Low L Platelet Morphology Normal Sodium 142 Potassium 3.5 Chloride 112 H Carbon Dioxide 23.5 Anion Gap 7 BUN 7 Creatinine 0.70 Estimated GFR Greater than 89 Random Glucose 107 H Calcium 7.1 L* Prot Corrected Calcium 7.9 L Total Bilirubin 0.9 AST 25 ALT 18 Alkaline Phosphatase 78 Total Protein 5.5 L Albumin 2.0 L Microbiology 02/20/18 16:50 Clean Catch Urine Urine Culture - Final Aerococcus urinae Assessment and Plan - Assessment (1) GI bleed Code(s): K92.2 - Gastrointestinal hemorrhage, unspecified Status: Acute - Plan 33-year-old male admitted secondary to abdominal pain with GI bleed and acute blood loss anemia Improved status post EGD with banding. H&H social stability. Continue IV PPI and Octreotide until cleared by GI. Discharge will be considered after GI clearance. GI bleed Acute blood loss anemia Abdominal pain 2 units packed red blood cells transfused over first night 2 additional units packed red blood cells ordered for transfusion on 02/22/2018 H&H show stability now Continue to monitor H&H GI following Continue as needed pain treatments Avoid blood thinners Continue IV PPI and Octreotide. Anxiety PRN ativan ordered DVT prophylaxis SCDs Discharge planning Patient will be cleared for discharge after GI clearance provided
--- NOTE | 2018-02-23 15:54 | P.PNGI ---
Subjective Interval history: Sitting up on side of the bed and in the bed denies any acute distress or obvious bleeding Tolerating clear liquids without any nausea or vomiting, no abdominal pain <Ema Higuera - Last Filed: 02/23/18 15:49> Interval history: Patient was seen and examined, agree with above note patient still anemic, mild drop in his hemoglobin, will monitor for bleeding and will continue octreotide for another 12-24 hours <Elizabeth Gambino - Last Filed: 02/23/18 18:15> Physical Exam Vital signs: Vital Signs 02/22/18 16:00 02/22/18 17:25 02/22/18 20:00 Temperature 98.6 F 98.3 F Pulse Rate 58 L 80 Respiratory Rate 18 18 Blood Pressure 141/66 H 110/53 L Pulse Oximetry 99 99 94 L 02/23/18 00:00 02/23/18 04:00 02/23/18 08:00 Temperature 97.8 F 98.2 F 98 F Pulse Rate 58 L 55 L 54 L Respiratory Rate 18 18 18 Blood Pressure 108/55 L 120/58 L 130/63 Pulse Oximetry 98 95 97 02/23/18 09:49 02/23/18 12:00 Temperature 98.2 F Pulse Rate 56 L Respiratory Rate 18 Blood Pressure 146/70 H Pulse Oximetry 97 96 Intake & Output 02/22/18 02/23/18 02/23/18 18:59 06:59 18:59 Intake Total 940 / 940 3700.5 / 3700.5 1000 / 1000 Output Total 1575 / 1575 Balance -635 / -635 3700.5 / 3700.5 1000 / 1000 Weight 81.7 kg Intake: IV 220 / 220 2500.5 / 2500.5 1000 / 1000 SandoSTATIN Inj 500 MCG In NS 120 / 120 500.5 / 500.5 Inj 500 ML @ 25 MCG/HR 25.02 mls/hr IV.CONT .Q20H1M [facility] Rx#: [id number] NS Inj 1,000 ML @ 125 mls/hr IV 2000 / 2000 1000 / 1000 .CONT .Q8H [facility] Rx#:[id number] Rocephin Inj 1,000 MG In NS Inj 100 / 100 100 ML @ 200 mls/hr IV.SIG Q24H [facility] Rx#:[id number] Oral 720 / 720 1200 / 1200 Output: Urine 1575 / 1575 Other: # Voids 2 Date of Last Bowel Movement 02/21/18 02/21/18 - Constitutional no acute distress - Routine HEENT Exam Head: Present: normocephalic ENT: Present: mucous membranes moist - Routine Cardiovascular Exam Present: S1, S2 - Routine Abdominal Exam Present: soft, normoactive bowel sounds <Ema Higuera M - Last Filed: 02/23/18 15:49> Vital signs: Vital Signs 02/22/18 20:00 02/23/18 00:00 02/23/18 04:00 Temperature 98.3 F 97.8 F 98.2 F Pulse Rate 80 58 L 55 L Respiratory Rate 18 18 18 Blood Pressure 110/53 L 108/55 L 120/58 L Pulse Oximetry 94 L 98 95 02/23/18 08:00 02/23/18 09:49 02/23/18 12:00 Temperature 98 F 98.2 F Pulse Rate 54 L 56 L Respiratory Rate 18 18 Blood Pressure 130/63 146/70 H Pulse Oximetry 97 97 96 02/23/18 16:00 Temperature 98.6 F Pulse Rate 58 L Respiratory Rate 18 Blood Pressure 160/80 H Pulse Oximetry 97 Intake & Output 02/22/18 02/23/18 02/23/18 18:59 06:59 18:59 Intake Total 940 / 940 3700.5 / 3700.5 1100 / 1100 Output Total 1575 / 1575 Balance -635 / -635 3700.5 / 3700.5 1100 / 1100 Weight 81.7 kg Intake: IV 220 / 220 2500.5 / 2500.5 1100 / 1100 SandoSTATIN Inj 500 MCG In NS 120 / 120 500.5 / 500.5 Inj 500 ML @ 25 MCG/HR 25.02 mls/hr IV.CONT .Q20H1M [facility] Rx#: [id number] NS Inj 1,000 ML @ 125 mls/hr IV 2000 / 2000 1000 / 1000 .CONT .Q8H [facility] Rx#:[id number] Rocephin Inj 1,000 MG In NS Inj 100 / 100 100 / 100 100 ML @ 200 mls/hr IV.SIG Q24H [facility] Rx#:[id number] Oral 720 / 720 1200 / 1200 Output: Urine 1575 / 1575 Other: # Voids 2 Date of Last Bowel Movement 02/21/18 02/21/18 <Elizabeth Gambino - Last Filed: 02/23/18 18:15> Results - Labs CBC & Chem 7: 02/23/18 05:20 02/23/18 05:20 Laboratory Results - last 24 hr 02/23/18 02/23/18 05:20 05:20 WBC 5.6 RBC 2.89 L Hgb 8.1 L Hct 24.7 L MCV 85.4 MCH 27.9 MCHC 32.6 RDW 19.8 H Plt Count 95 L MPV 7.6 Prelim Diff (Auto) Slide review pending Neut % (Auto) 56.5 Lymph % (Auto) 32.3 [place] % (Auto) 8.2 H Eos % (Auto) 2.5 Baso % (Auto) 0.5 Neut # (Auto) 3.1 Lymph # (Auto) 1.8 [place] # (Auto) 0.5 Eos # (Auto) 0.1 Baso # (Auto) 0.0 WBC Differential . Diff Scan Auto diff confirmed Differential Comment . Platelet Estimate Low L Platelet Morphology Normal Sodium 142 Potassium 3.5 Chloride 112 H Carbon Dioxide 23.5 Anion Gap 7 BUN 7 Creatinine 0.70 Estimated GFR Greater than 89 Random Glucose 107 H Calcium 7.1 L* Prot Corrected Calcium 7.9 L Total Bilirubin 0.9 AST 25 ALT 18 Alkaline Phosphatase 78 Total Protein 5.5 L Albumin 2.0 L Microbiology 02/20/18 16:50 Clean Catch Urine Urine Culture - Final Aerococcus urinae <Ema Higuera - Last Filed: 02/23/18 15:49> - Labs CBC & Chem 7: 02/23/18 05:20 02/23/18 05:20 Laboratory Results - last 24 hr 02/23/18 02/23/18 05:20 05:20 WBC 5.6 RBC 2.89 L Hgb 8.1 L Hct 24.7 L MCV 85.4 MCH 27.9 MCHC 32.6 RDW 19.8 H Plt Count 95 L MPV 7.6 Prelim Diff (Auto) Slide review pending Neut % (Auto) 56.5 Lymph % (Auto) 32.3 [place] % (Auto) 8.2 H Eos % (Auto) 2.5 Baso % (Auto) 0.5 Neut # (Auto) 3.1 Lymph # (Auto) 1.8 [place] # (Auto) 0.5 Eos # (Auto) 0.1 Baso # (Auto) 0.0 WBC Differential . Diff Scan Auto diff confirmed Differential Comment . Platelet Estimate Low L Platelet Morphology Normal Sodium 142 Potassium 3.5 Chloride 112 H Carbon Dioxide 23.5 Anion Gap 7 BUN 7 Creatinine 0.70 Estimated GFR Greater than 89 Random Glucose 107 H Calcium 7.1 L* Prot Corrected Calcium 7.9 L Total Bilirubin 0.9 AST 25 ALT 18 Alkaline Phosphatase 78 Total Protein 5.5 L Albumin 2.0 L <Elizabeth Gambino - Last Filed: 02/23/18 18:15> Assessment and Plan - Plan 02/22/2018 Hematemesis /GI bleed Patient post EGD findings include esophageal varices and portal hypertensive gastropathy. Patient maintained on octreotide drip. Patient denies any obvious noted bleeding, denies any nausea or vomiting. Hemoglobin 8.1 hematocrit 24.0 stable. Total bilirubin 1.1 AST 28 alk phos 79 02/23/2018 patient is status post EGD findings noted above, tolerating clear liquid diet, no nausea no vomiting complaints of hunger Will increase to full liquids but encourage antireflux precautions, soft foods only at least another week no spicy no greasy foods Octreotide drip continues hemoglobin 8.1, no changes in 24 hours Esophageal varices, portal hypertensive gastropathy, stabilized but need to monitor hemoglobin Patient is fairly anxious about needing to go home secondary to upcoming surgery and 3 kids. Supportive care given and further recommendations to follow No NG placement noted for patient Plan Diet full liquids tolerate and without any obvious bleeding nausea or vomiting PPI Monitor labs with special attention hemoglobin Octreotide drip Supportive care Patient was seen per myself and Dr. Gambino, note was written on his behalf <Ema Higuera - Last Filed: 02/23/18 15:49>
[2018-02-24] MEDS: Octreotide Inj 500 MCG in Sodium Chlor 0.9% Inj 500 ML IV.CONT SCH (01:37)
[2018-02-24] MEDS: Sod Chloride 0.9% Inj 1,000 ML IV.CONT SCH ×3 (02:41→09:00)
[2018-02-24 06:58] LABS: Hematocrit 24.5 % (39.0-51.0); Hemoglobin 8.3 gm/dL (13.0-17.0); Mean Corpuscular HGB Conc 33.8 % (32.0-36.0); Mean Corpuscular Hemoglobin 28.4 pg (27.0-34.0); Mean Platelet Volume 7.5 fL (7.0-11.0); Platelet Count 89 th/mm3 (150-450); Red Blood Count 2.91 mil/mm3 (4.50-5.90); Red Cell Distribution Width 19.9 % (11.6-17.2); White Blood Count 4.7 th/mm3 (4.0-11.0)
[2018-02-24 07:28] LABS: Alanine Aminotransferase 16 U/L (12-78); Albumin 2.1 g/dL (3.4-5.0); Alkaline Phosphatase 85 U/L (45-117); Anion Gap 7 meq/L (5-15); Aspartate Aminotransferase 17 U/L (15-37); Blood Urea Nitrogen 6 mg/dL (7-18); Calcium 7.1 mg/dL (8.5-10.1); Carbon Dioxide 27.1 meq/L (21.0-32.0); Chloride 108 meq/L (98-107); Glomerular Filtration Rate Greater Than 89 mL/min (>89); Glucose,Random 85 mg/dL (74-106); Potassium 3.2 meq/L (3.5-5.1); Sodium 142 meq/L (136-145); Total Protein 5.6 g/dL (6.4-8.2)
[2018-02-24 08:31] LABS: Eosinophils 4 % (0-4); Lymphocytes 22 % (9-44); Platelet Morphology Normal (Normal)
--- NOTE | 2018-02-24 11:38 | P.PNGI ---
Subjective Interval history: Alert awake no nausea no vomiting hemoglobin is stable no abdominal pain no obvious bleeding Appetite good Physical Exam Vital signs: Vital Signs 02/23/18 12:00 02/23/18 16:00 02/23/18 18:00 Temperature 98.2 F 98.6 F Pulse Rate 56 L 58 L 62 Respiratory Rate 18 18 Blood Pressure 146/70 H 160/80 H Pulse Oximetry 96 97 02/23/18 20:00 02/23/18 20:05 02/24/18 00:00 Temperature 97.7 F 97.8 F Pulse Rate 70 64 64 Respiratory Rate 18 18 Blood Pressure 147/82 H 150/91 H Pulse Oximetry 100 100 02/24/18 04:00 02/24/18 08:00 Temperature 97.7 F 98 F Pulse Rate 61 59 L Respiratory Rate 18 18 Blood Pressure 148/80 H 127/70 Pulse Oximetry 100 95 Intake & Output 02/23/18 02/24/18 02/24/18 18:59 06:59 18:59 Intake Total 3520 / 3520 4420.5 / 4420.5 250.5 / 250.5 Output Total 2425 / 2425 1800 / 1800 Balance 1095 / 1095 2620.5 / 2620.5 250.5 / 250.5 Weight 81.7 kg Intake: IV 1100 / 1100 2500.5 / 2500.5 250.5 / 250.5 SandoSTATIN Inj 500 MCG In NS 500.5 / 500.5 250.5 / 250.5 Inj 500 ML @ 25 MCG/HR 25.02 mls/hr IV.CONT .Q20H1M [facility] Rx#: [id number] NS Inj 1,000 ML @ 125 mls/hr IV 1000 / 1000 2000 / 2000 .CONT .Q8H [facility] Rx#:[id number] Rocephin Inj 1,000 MG In NS Inj 100 / 100 100 ML @ 200 mls/hr IV.SIG Q24H [facility] Rx#:[id number] Oral 2420 / 2420 1920 / 1920 Output: Urine 2425 / 2425 1800 / 1800 Other: Date of Last Bowel Movement 02/23/18 # Bowel Movements 2 - Constitutional no acute distress - Routine HEENT Exam Head: Present: normocephalic ENT: Present: mucous membranes moist - Routine Respiratory Exam Present: CTA bilaterally - Routine Cardiovascular Exam Present: S1, S2 (No obvious bleeding) - Routine Abdominal Exam Present: soft, normoactive bowel sounds Results - Labs CBC & Chem 7: 02/24/18 05:54 02/24/18 05:54 Laboratory Results - last 24 hr 02/24/18 02/24/18 05:54 05:54 WBC 4.7 RBC 2.91 L Hgb 8.3 L Hct 24.5 L MCV 84.0 MCH 28.4 MCHC 33.8 RDW 19.9 H Plt Count 89 L MPV 7.5 Prelim Diff (Auto) Manual diff required WBC Differential Manual diff final Seg Neuts % (Manual) 72 H Band Neuts % (Manual) 2 Lymphocytes % (Manual) 22 Eosinophils % (Manual) 4 Abs Neuts (Manual) 3.5 Differential Comment . Platelet Estimate Low L Platelet Morphology Normal Sodium 142 Potassium 3.2 L Chloride 108 H Carbon Dioxide 27.1 Anion Gap 7 BUN 6 L Creatinine 0.57 L Estimated GFR Greater than 89 Random Glucose 85 Calcium 7.1 L* Prot Corrected Calcium 7.9 L Total Bilirubin 1.0 AST 17 ALT 16 Alkaline Phosphatase 85 Total Protein 5.6 L Albumin 2.1 L Assessment and Plan - Plan 02/22/2018 Hematemesis /GI bleed Patient post EGD findings include esophageal varices and portal hypertensive gastropathy. Patient maintained on octreotide drip. Patient denies any obvious noted bleeding, denies any nausea or vomiting. Hemoglobin 8.1 hematocrit 24.0 stable. Total bilirubin 1.1 AST 28 alk phos 79 02/23/2018 patient is status post EGD findings noted above, tolerating clear liquid diet, no nausea no vomiting complaints of hunger Will increase to full liquids but encourage antireflux precautions, soft foods only at least another week no spicy no greasy foods Octreotide drip continues hemoglobin 8.1, no changes in 24 hours Esophageal varices, portal hypertensive gastropathy, stabilized but need to monitor hemoglobin Patient is fairly anxious about needing to go home secondary to upcoming surgery and 3 kids. Supportive care given and further recommendations to follow No NG placement noted for patient 02/24/2018 patient is having no GI symptoms of nausea vomiting or abdominal pain appetite is good patient is tolerating full liquids without any difficulty labs reviewed no obvious drop in hemoglobin currently 8.3 today. Discussed again with patient EGD findings and needs evaluation again in 1 month. Octreotide drip DC'd around noon today. Increased diet to soft cardiac non- spicy foods with antireflux precautions and eat slowly. Discussed again the need for patient to follow-up in the GI office to reevaluate EGD. Patient is very anxious to discharge due to work and personal issues To Discharge on Nadolol 20 mg, daily , Ok to DC from GI Plan Diet full liquid, transition to soft cardiac diet at lunch Nadolol 20mg. daily PPI Monitor labs with special attention hemoglobin Supportive care Patient was seen per myself and Dr. Rice, note was written on his behalf
[2018-02-24] MEDS ORDERED: Nadolol 20 MG Tablet PO SCH (12:30)
[2018-02-24 14:32] VITALS: BP 144/74; PULSE 65; TEMP 98.3; O2SAT 98
--- NOTE | 2018-02-24 15:00 | P.DS ---
Date of admission: 02/20/18 16:32 Primary care physician: UNKNOWN Brief History from admission: patient is a 33 y/o male with history of hepatitis C, Cirrhosis, esophageal varices, who presented to ER with hematemesis. he says that he started to throw up blood last night. he has mild generalized abdominal pain. he says that he's feeling weak, dizzy with mild sob. he denies any chest pain. he underwent EGD/ banding last month. DS: Diagnosis - Discharge Diagnosis (1) GI bleed Status: Acute DS: Medications - Discharge Medications Prescriptions: nadolol 20 mg PO DAILY #30 tab omeprazole 20 mg PO DAILY #14 cap DS: Summary Hospital Course: Mr. Bonilla is a 33-year-old male with hepatitis C, Cirrhosis, esophageal varices. He came in secondary to hematemesis. This is happened before. He had an EGD with banding. He has been doing well since with demonstration of hemoglobin stability. He been on octreotide drip and a PPI drip. Today he is cleared for GI for discharge to home with graduating upward trend in hemoglobin seen. No further episodes of hematemesis. Medically stable and cleared for discharge home today. He was provided with nadolol and omeprazole. - Time Spent with Patient Total time spent providing and/or coordinating discharge services: Less than 30 minutes Exam Vital signs: Vital Signs 02/23/18 16:00 02/23/18 18:00 02/23/18 20:00 Temperature 98.6 F 97.7 F Pulse Rate 58 L 62 70 Respiratory Rate 18 18 Blood Pressure 160/80 H 147/82 H Pulse Oximetry 97 100 02/23/18 20:05 02/24/18 00:00 02/24/18 04:00 Temperature 97.8 F 97.7 F Pulse Rate 64 64 61 Respiratory Rate 18 18 Blood Pressure 150/91 H 148/80 H Pulse Oximetry 100 100 02/24/18 08:00 02/24/18 12:00 Temperature 98 F 98.3 F Pulse Rate 59 L 65 Respiratory Rate 18 18 Blood Pressure 127/70 144/74 H Pulse Oximetry 95 98 Intake & Output 02/23/18 02/24/18 02/24/18 18:59 06:59 18:59 Intake Total 3520 / 3520 4420.5 / 4420.5 1250.5 / 1250.5 Output Total 2425 / 2425 1800 / 1800 Balance 1095 / 1095 2620.5 / 2620.5 1250.5 / 1250.5 Weight 81.7 kg Intake: IV 1100 / 1100 2500.5 / 2500.5 1250.5 / 1250.5 SandoSTATIN Inj 500 MCG In NS 500.5 / 500.5 250.5 / 250.5 Inj 500 ML @ 25 MCG/HR 25.02 mls/hr IV.CONT .Q20H1M [facility] Rx#: [id number] NS Inj 1,000 ML @ 125 mls/hr IV 1000 / 1000 2000 / 2000 1000 / 1000 .CONT .Q8H [facility] Rx#:[id number] Rocephin Inj 1,000 MG In NS Inj 100 / 100 100 ML @ 200 mls/hr IV.SIG Q24H [facility] Rx#:[id number] Oral 2420 / 2420 1920 / 1920 Output: Urine 2425 / 2425 1800 / 1800 Other: Date of Last Bowel Movement 02/23/18 02/23/18 # Bowel Movements 2 Results Procedures completed during hospitalization: EGD with banding of varices Labs on day of discharge: Labs from last 24 hours 02/24/18 02/24/18 05:54 05:54 WBC 4.7 RBC 2.91 L Hgb 8.3 L Hct 24.5 L MCV 84.0 MCH 28.4 MCHC 33.8 RDW 19.9 H Plt Count 89 L MPV 7.5 Prelim Diff (Auto) Manual diff required WBC Differential Manual diff final Seg Neuts % (Manual) 72 H Band Neuts % (Manual) 2 Lymphocytes % (Manual) 22 Eosinophils % (Manual) 4 Abs Neuts (Manual) 3.5 Differential Comment . Platelet Estimate Low L Platelet Morphology Normal Sodium 142 Potassium 3.2 L Chloride 108 H Carbon Dioxide 27.1 Anion Gap 7 BUN 6 L Creatinine 0.57 L Estimated GFR Greater than 89 Random Glucose 85 Calcium 7.1 L* Prot Corrected Calcium 7.9 L Total Bilirubin 1.0 AST 17 ALT 16 Alkaline Phosphatase 85 Total Protein 5.6 L Albumin 2.1 L - Impressions ITS Impressions Abdomen/Pelvis CT 02/20/18 15:11 CONCLUSION: Markedly cirrhotic appearance of the liver with upper abdominal varices, including esophageal varices and prominent splenomegaly. Nonspecific enlarged periportal lymph nodes which were present previously. Trace ascites. Discharge Plan - Discharge Disposition Patient Disposition: 01 Discharge Home - Discharge Condition Condition: Stable - Discharge Order Discharge Orders: Discharge Order (Routine); Ordered 02/24/18 Ordered By: Oneil Mayo - Discharge Details Anticipated Discharge Date: 02/24/18 - Physicians Team Primary Care Provider: UNKNOWN, Attending Provider: Oneil Mayo Other Providers: Elizabeth Gambino MD
== END 2018-02-24 15:07 | disposition home or self-care (01) ==
LOC: PHED 14:19 → PHEDA 16:32 → N04 18:18
PROVIDERS: ADMIT Hospitalist; ATTEND Hospitalist
PROC: PANENDO (2018-02-21 11:00)

== ENCOUNTER 2018-03-01 21:32 | Inpatient (IN) ==
[2018-03-01] MEDS ORDERED: Sod Chloride 0.9% Inj 1,000 ML IV.SIG ONE (21:37)
[2018-03-01] MEDS ORDERED: Vancomycin Inj 1 GM/200 ML PIGGYBACK IV.SIG ONE (21:37)
[2018-03-01] MEDS ORDERED: Pantoprazole Inj 40 MG Vial IV.PUSH ONE (21:37)
[2018-03-01] MEDS ORDERED: Sod Chloride 0.9% Inj 400 ML IV.SIG SCH (21:45)
[2018-03-01] MEDS ORDERED: Octreotide Inj 500 MCG in Sodium Chlor 0.9% Inj 500 ML IV.CONT SCH (22:00)
[2018-03-01] MEDS ORDERED: Vancomycin Inj 1,000 MG in Sodium Chlor 0.9% Inj 250 ML IV.SIG ONE (22:00)
--- NOTE | 2018-03-01 22:11 | XR ---
EXAM DATE: 03/01/2018 10:04 PM EDT AGE/SEX: 33 years / Male INDICATIONS: Fever. CLINICAL DATA: This is the patient's initial encounter. Patient reports that signs and symptoms have been present for 1 day and indicates a pain score of 5/10. MEDICAL/SURGICAL HISTORY: . Afib. Hepatitis C. HTN. Liver cirrhosis. Substance abuse. None. . COMPARISON: [facility], CHEST 1V SINGLE AP, 01/02/2018. . FINDINGS: A single AP view of the chest demonstrates the lungs to be symmetrically aerated without evidence of mass, infiltrate or effusion. Minimal basilar atelectasis. The cardiomediastinal contours are unremar kable. Osseous structures are intact. CONCLUSION: Minimal basilar atelectasis. No active disease. Electronically signed by: Matt Dyer MD 03/01/2018 10:09 PM EDT
--- NOTE | 2018-03-01 22:14 | ED ---
HPI General Chief complaint: Nausea/Vomiting/Diarrhea Stated complaint: Vomiting Blood Time Seen by Provider: 03/01/18 21:36 Source: patient and EMS Mode of arrival: EMS Limitations: no limitations History of Present Illness HPI narrative: Patient is a 33-year-old male, past medical history significant for cirrhosis with known esophageal varices, last esophageal varices was banded fairly recently, who presents with complaint of hematemesis. EMS reports that his initial blood pressure on their arrival was in the 70s-80s with a heart rate in the 150s. They state that he has put out copious amounts of hematemesis. Patient states that this began approximately 30 minutes prior to arrival. He does admit to fever and chills as well with abdominal pain. No headache no recent trauma. No chest pain or shortness of breath. Onset (ago): minute(s) Radiation: non-radiation Severity: severe Pain Consistency: constant Relieving factors: none Exacerbating factors: none Treatments prior to arrival: Reports none Related Data Home Medications Medication Instructions Recorded Confirmed No Known Home Medications 02/20/18 03/01/18 Allergies Allergy/AdvReac Type Severity Reaction Status Date / Time codeine Allergy Severe HIVES Verified 03/01/18 21:37 phenytoin Allergy Severe HIVES Verified 03/01/18 21:37 Review of Systems ROS: all other systems reviewed are negative [facility] Medical History Medical History Afib (Acute) Hep C w/o coma, chronic (Acute) Hypertension (Acute) Liver cirrhosis (Acute) Substance abuse (Acute) Surgical History Surgical History No history of previous surgery (Acute) Family History Family History Other Heart problem Social History Social History Substance History: Past History Second Hand Smoke Exposure: Yes Smoking Status: Current every day smoker Tobacco Type: Cigarettes How Often Do You Have a Drink Containing Alcohol: Never Recent Travel in [place] within the Last 8 Weeks: No Recent Out of Country Travel within the Last 8 Weeks: No Immunization History Tetanus Immunization: Unsure Exam Narrative Exam Narrative: GENERAL: Ill-appearing male SKIN: Focused skin assessment warm/dry but jaundiced. HEAD: Atraumatic. Normocephalic. EYES: Pupils equal and round. No injection or drainage. ENT: No nasal bleeding or discharge. Mucous membranes pink and moist. Dried blood around oropharynx. NECK: Trachea midline. No JVD. CARDIOVASCULAR: Regular rate and rhythm. No murmur appreciated. Intact and equal peripheral pulses. RESPIRATORY: No accessory muscle use. Clear to auscultation. Breath sounds equal bilaterally. GASTROINTESTINAL: Abdomen soft, slight abdominal distention with tenderness throughout. Hepatic and splenic margins not palpable. MUSCULOSKELETAL: No obvious deformities. No clubbing. No cyanosis. No edema. NEUROLOGICAL: Awake and alert. No obvious cranial nerve deficits. Motor grossly within normal limits. Normal speech. PSYCHIATRIC: Appropriate mood and affect; insight and judgment normal. Procedures Central Line Placement Right Femoral: Time Out Performed: Yes Patient Placed on Monitor/Pulse Ox: Yes MD Prep: mask, gown and gloves Central Line Prep: Chlorhexidine scrub, sterile drapes applied and other Ultrasound Used for Placement: No Central Line Lumen Inserted: triple Post Procedure: sutured in place, good blood return, all ports aspirated, flushed, capped and sterile dressing applied Patient Tolerated Procedure: no complications Complications: none Intubation Time Out Performed: Yes Sedative: etomidate Mg Given: 20 Paralytic: succinylcholine Mg Given: 100 Laryngoscope: fiber optic video scope Assist Device Used: fiber optic device ET Tube Size: 8 ET Tube Uncuffed: Yes Tube Secured Depth (cm): 24 Tube Secured Location: teeth Tube Placement Confirmation: visualized tube passing through cords, equal breath sounds bilaterally, no breath sounds over epigastrium and confirmation by capnometry Patient Tolerated Procedure: well Intubation Complications: none Course Consultations Consultation #1: I spoke to Dr Hawthorne, GI physician on-call as the patient has put out 1400 cc bloody emesis since arrival here. She stated that she would follow up on the labs. Time: 22:13 Initial Documented Vital Signs Temperature 100.8 F H 03/01/18 21:33 Pulse Rate 138 H 03/01/18 21:33 Respiratory Rate 20 03/01/18 21:33 Blood Pressure 115/56 L 03/01/18 21:33 Pulse Oximetry 99 03/01/18 21:33 Last Documented Vital Signs Temperature 100.8 F H 11/02/18 21:33 Pulse Rate 133 H 03/01/18 21:40 Respiratory Rate 18 03/01/18 21:40 Blood Pressure 115/56 L 03/01/18 21:33 Pulse Oximetry 99 03/01/18 21:40 Critical Care Time Critical Care Time: Yes Total Critical Care Time: 30 Attestation: Aggregate critical care time was 30 minutes. Time to perform other separately billable procedures was not included in the critical care time. My time did not include minutes spent treating any other patients simultaneously or on activities that did not directly contribute to the patient's treatment. The services I provided to this patient were to treat and/or prevent clinically significant deterioration that could result in: , decompensation, deterioration I provided critical care services requiring my management, as noted below: Chart data review, documentation time, medication orders and management, vital sign assessments/reviewing monitor data, ordering and reviewing lab tests, ordering and interpreting/reviewing x-rays and diagnostic studies, care of the patient and discussion of the patient with the admitting physicians. Sign Out Sign Out Data: Patient Sign Out occurred on 03/01/18 at 23:35. Patient's care was discussed, and care was transferred from Amara Wilder MD to Dotty Miranda. Sign Out Comment: Labs pending. Last updated by Amara Wilder MD at 03/01/18 23:20 Medical Decision Making MDM Narrative Medical decision making narrative: Patient is a 33-year-old male who presents with complaint of hematemesis. On arrival his blood pressure was in the 100s with heart rate in the 120s and he was given more fluids per sepsis protocol with antibiotics in addition to Protonix and octreotide. Patient then began to have further vomiting and GI was called and made aware of this situation. At time of checkout patient's blood pressure dropped into the 70s and he became unresponsive and further care was managed by Dr. Miranda. Patient received in signout, patient hypotensive with a massive GI bleed. Hemoglobin is 5.3, emergent blood release was ordered and transfusion was initiated. Patient became unresponsive, decision was to intubate for airway protection. After patient was intubated, an NG tube was placed - patient had greater than 1 liter of blood output call made to GI to review case call made to [employer] for admission Patient has already received 3 units of rapid release blood - i will order another [address] Moeller is in the hospital - will bring patient to the OR Case reviewed with Dr. Dupree who accepts pt to service Patient was initially started on propofol, this was discontinued, Versed and fentanyl was initiated as patient is hypotensive Medical Screen Exam Complete: Yes Emergency Medical Condition: Yes Differential Diagnosis Differential Diagnosis: Differential diagnosis includes but is not limited to GI bleed, sepsis, SBP. Medical Records Medical records reviewed: Yes I reviewed the patient's medical records. Lab Data Result diagrams: 03/01/18 21:45 03/01/18 21:45 Lab Results 03/01/18 03/01/18 03/01/18 Range/Units 21:37 21:45 21:45 WBC 14.9 H (4.0-11.0) th/mm3 RBC 2.01 L (4.50-5.90) mil/mm3 Hgb 5.3 L* (13.0-17.0) gm/dL Hct 17.1 L* (39.0-51.0) % MCV 85.2 (80.0-100.0) fL MCH 26.4 L (27.0-34.0) pg MCHC 31.0 L (32.0-36.0) % RDW 19.7 H (11.6-17.2) % Plt Count 148 L D (150-450) th/mm3 MPV 8.3 (7.0-11.0) fL Prelim Diff (Auto) Slide review pending Neut % (Auto) 83.2 H (16.0-70.0) % Lymph % (Auto) 10.4 (9.0-44.0) % [place] % (Auto) 6.0 (0.0-8.0) % Eos % (Auto) 0.2 (0.0-4.0) % Baso % (Auto) 0.2 (0.0-2.0) % Neut # (Auto) 12.4 H (1.8-7.7) th/mm3 Lymph # (Auto) 1.5 (1.0-4.8) th/mm3 [place] # (Auto) 0.9 (0.0-0.9) th/mm3 Eos # (Auto) 0.0 (0.0-0.4) th/mm3 Baso # (Auto) 0.0 (0.0-0.2) th/mm3 WBC Differential Manual diff final Seg Neuts % (Manual) 75 H (16-70) % Band Neuts % (Manual) 7 H (0-6) % Lymphocytes % (Manual) 12 (9-44) % Monocytes % (Manual) 6 (0-8) % Abs Neuts (Manual) 12.2 H (1.8-7.7) th/mm3 Differential Comment . Platelet Estimate Low L (Normal) Platelet Morphology Normal (Normal) Ovalocytes 1+ H (None) PT 16.4 H (9.8-11.6) sec INR 1.6 Ratio APTT 27.1 (23.4-31.7) sec Sodium (136-145) meq/L Potassium (3.5-5.1) meq/L Chloride (98-107) meq/L Carbon Dioxide (21.0-32.0) meq/L Anion Gap (5-15) meq/L BUN (7-18) mg/dL Creatinine (0.60-1.30) mg/dL Estimated GFR (>89) mL/min Random Glucose (74-106) mg/dL Lactic Acid (0.4-2.0) mmol/L Calcium (8.5-10.1) mg/dL Prot Corrected Calcium (8.5-10.1) mg/dL Total Bilirubin (0.2-1.0) mg/dL AST (15-37) U/L ALT (12-78) U/L Alkaline Phosphatase (45-117) U/L Ammonia (11-32) mcmol/L Total Protein (6.4-8.2) g/dL Albumin (3.4-5.0) g/dL Lipase (73-393) U/L Blood Type A Negative Blood Type Recheck Not needed MTS Gel Crossmatch See Detail 03/01/18 03/01/18 03/01/18 Range/Units 21:45 21:45 21:45 WBC (4.0-11.0) th/mm3 RBC (4.50-5.90) mil/mm3 Hgb (13.0-17.0) gm/dL Hct (39.0-51.0) % MCV (80.0-100.0) fL MCH (27.0-34.0) pg MCHC (32.0-36.0) % RDW (11.6-17.2) % Plt Count (150-450) th/mm3 MPV (7.0-11.0) fL Prelim Diff (Auto) Neut % (Auto) (16.0-70.0) % Lymph % (Auto) (9.0-44.0) % [place] % (Auto) (0.0-8.0) % Eos % (Auto) (0.0-4.0) % Baso % (Auto) (0.0-2.0) % Neut # (Auto) (1.8-7.7) th/mm3 Lymph # (Auto) (1.0-4.8) th/mm3 [place] # (Auto) (0.0-0.9) th/mm3 Eos # (Auto) (0.0-0.4) th/mm3 Baso # (Auto) (0.0-0.2) th/mm3 WBC Differential Seg Neuts % (Manual) (16-70) % Band Neuts % (Manual) (0-6) % Lymphocytes % (Manual) (9-44) % Monocytes % (Manual) (0-8) % Abs Neuts (Manual) (1.8-7.7) th/mm3 Differential Comment Platelet Estimate (Normal) Platelet Morphology (Normal) Ovalocytes (None) PT (9.8-11.6) sec INR Ratio APTT (23.4-31.7) sec Sodium 143 (136-145) meq/L Potassium 3.8 (3.5-5.1) meq/L Chloride 109 H (98-107) meq/L Carbon Dioxide 23.2 (21.0-32.0) meq/L Anion Gap 11 (5-15) meq/L BUN 8 (7-18) mg/dL Creatinine 0.80 (0.60-1.30) mg/dL Estimated GFR Greater than 89 (>89) mL/min Random Glucose 139 H (74-106) mg/dL Lactic Acid 5.2 H* (0.4-2.0) mmol/L Calcium 6.4 L* (8.5-10.1) mg/dL Prot Corrected Calcium 7.8 L (8.5-10.1) mg/dL Total Bilirubin 0.8 (0.2-1.0) mg/dL AST 25 (15-37) U/L ALT 15 (12-78) U/L Alkaline Phosphatase 83 (45-117) U/L Ammonia 62 H (11-32) mcmol/L Total Protein 4.4 L D (6.4-8.2) g/dL Albumin 1.6 L (3.4-5.0) g/dL Lipase 74 (73-393) U/L Blood Type Blood Type Recheck MTS Gel Crossmatch Imaging Data Radiologist's impression: Chest X-Ray 03/01/18 21:38 CONCLUSION: Minimal basilar atelectasis. No active disease. Discharge Plan Discharge Disposition Patient Disposition: 30 Still Patient Discharge Condition Condition: Critical Discharge Details Diagnosis: Esophageal varices in cirrhosis Physicians Team ED Provider: Dotty Miranad Primary Care Provider: UNKNOWN, Attending Provider: Moise Dupree Status ED Status: Admitted Patient
[2018-03-01] MEDS ORDERED: Lidocaine 2%/Epinephrine 1:100,000 30 ML MDV INFILTRATN ONE (22:31)
[2018-03-01] MEDS ORDERED: Lidocaine 2%/Epinephrine 1:100,000 Inj 20 ML Vial ONE (22:33)
[2018-03-01 22:40] LABS: Baso % (Auto) 0.2 % (0.0-2.0); Eos % (Auto) 0.2 % (0.0-4.0); Lymph # (Auto) 1.5 th/mm3 (1.0-4.8); Lymph % (Auto) 10.4 % (9.0-44.0); Mean Corpuscular Hemoglobin 26.4 pg (27.0-34.0); Mean Corpuscular Volume 85.2 fL (80.0-100.0); Mean Platelet Volume 8.3 fL (7.0-11.0); Mono # (Auto) 0.9 th/mm3 (0.0-0.9); Neut # (Auto) 12.4 th/mm3 (1.8-7.7); Neut % (Auto) 83.2 % (16.0-70.0); Platelet Count 148 th/mm3 (150-450); Red Blood Count 2.01 mil/mm3 (4.50-5.90); Red Cell Distribution Width 19.7 % (11.6-17.2); White Blood Count 14.9 th/mm3 (4.0-11.0)
[2018-03-01 22:45] LABS: Hematocrit 17.1 % (39.0-51.0); Hemoglobin 5.3 gm/dL (13.0-17.0)
[2018-03-01] MEDS ORDERED: Norepinephrine Inj 4 MG/4 ML Ampul ONE (22:46)
[2018-03-01 22:51] LABS: Anion Gap 11 meq/L (5-15)
[2018-03-01 22:54] LABS: Activated Partial Thrombo Time 27.1 sec (23.4-31.7); Alanine Aminotransferase 15 U/L (12-78); Albumin 1.6 g/dL (3.4-5.0); Alkaline Phosphatase 83 U/L (45-117); Aspartate Aminotransferase 25 U/L (15-37); Blood Urea Nitrogen 8 mg/dL (7-18); Calcium 6.4 mg/dL (8.5-10.1); Carbon Dioxide 23.2 meq/L (21.0-32.0); Chloride 109 meq/L (98-107); Glomerular Filtration Rate Greater Than 89 mL/min (>89); Glucose,Random 139 mg/dL (74-106); INR 1.6 Ratio; Lipase 74 U/L (73-393); Potassium 3.8 meq/L (3.5-5.1); Prothrombin Time 16.4 sec (9.8-11.6); Sodium 143 meq/L (136-145); Total Protein 4.4 g/dL (6.4-8.2)
[2018-03-01] MEDS ORDERED: Propofol 1000 mg/100 ml Inj 1,000 MG/100 ML BOTTLE ONE (22:58)
[2018-03-01] MEDS ORDERED: Sodium Chlor 0.9% Inj 250 ML IV.SIG SCH (23:00)
[2018-03-01] MEDS ORDERED: Midazolam 50 MG/50 ML Inj 50 MG/50 ML BAG IV.CONT ONE (23:09)
[2018-03-01] MEDS ORDERED: fentaNYL 10 mcg/mL Premix Drip 2,500 MCG/250 ML BAG ONE (23:09)
[2018-03-01 23:13] LABS: Lymphocytes 12 % (9-44); Monocytes 6 % (0-8)
[2018-03-01 23:14] LABS: Ovalocytes 1+; Platelet Morphology Normal (Normal)
[2018-03-01] MEDS ORDERED: Pantoprazole Inj 80 MG in Sodium Chlor 0.9% Inj 100 ML IV.CONT SCH (23:45)
--- NOTE | 2018-03-01 23:47 | P.HPCC ---
History of Present Illness Service: Critical care medicine Primary Care Physician: UNKNOWN Chief Complaint: Hematemesis History of Present Illness: This is a 33-year-old male. Date of admission 03/01/2018. Past medical includes hepatitis C, known liver cirrhosis, esophageal varices patient was actually admitted 02/14 with upper GI bleed. Patient had 3 columns of 2-3 grade esophageal varices that evaluated Sean with banding.. Patient presents to [facility] 03/01 witha chief complaint of hematemesis. EMS reports that his initial blood pressure on their arrival was in the 70s-80s with a heart rate in the 150s. They state that he has put out copious amounts of hematemesis. Patient states that this began approximately 30 minutes prior to arrival. He does admit to fever and chills as well with abdominal pain. No headache no recent trauma. No chest pain or shortness of breath. Patient was emergently intubated and central line was placed in the femoral region. Hemoglobin is noted to be 5.2. Emergently transfused 3 units PRBCs. GI was consulted to try to perform an upper endoscopy revealed copious amounts of blood in the esophagus. Epinephrine injection was attempted. Fantasma tube was placed. IR was called. Repeat laboratories revealed significant coagulopathy with elevated INR/PTT and low fibrinogen. Unable to do intervention. State they do not tips at this facility. Patient needs to be stabilized prior to any transfer. Remains intubated on low-dose norepinephrine drip. Currently receiving K Centra, FFP and cryoprecipitate. Inpatient Certification: Inpatient certificate Estimated Total Length of Stay (Days): 8 Plans for Post Hospital Care: Not yet determined Review of Systems unobtainable due to endotracheal tube PMFSH - History History Provided By: Patient - Medical History Medical History: Medical History (Last Reviewed 03/02/18 @ 02:25 by Moise Dupree MD) Afib Hep C w/o coma, chronic Hypertension Liver cirrhosis Substance abuse - Surgical History Surgical History: Surgical History (Last Reviewed 03/02/18 @ 02:25 by Moise Dupree MD) No history of previous surgery (Acute) - Family History Family History: Family History (Last Reviewed 03/02/18 @ 02:25 by Moise Dupree MD) Other Heart problem - Tobacco History Second Hand Smoke Exposure: Yes Tobacco Use In Past 30 Days: Yes Smoking Status: Current every day smoker Tobacco Type: Cigarettes - Alcohol History How Often Do You Have a Drink Containing Alcohol: Never - Substance Use History Substance History: Past History - Travel History Recent Travel in the [place] Within the Last 8 Weeks: No Recent Travel Out of the Country Within the Last 8 Weeks: No - Immunization History Tetanus Immunization: Unsure Medications and Allergies Active Medications: Active Medications Octreotide Acetate 500 mcg/ (Sodium Chloride) 500.5 mls @ 50.05 mls/hr IV.CONT .Q10H NAVID Last Admin: 03/01/18 22:32 Dose: 50 mcg/hr, 50.05 mls/hr Sodium Chloride (Ns Inj) 400 mls @ 0 mls/hr IV.SIG .Q0M NAVID Last Admin: 03/01/18 22:32 Dose: 999 mls/hr Sodium Chloride (Ns Inj) 250 mls @ 15 mls/hr IV.SIG ONCE NAVID Stop: 03/02/18 15:39 Norepinephrine Bitartrate (Levophed-Dextrose 4 Mg/250 Ml Drip) 4 mg in 250 mls @ 7.5 mls/hr IV.SIG TITRATE PRN; Protocol PRN Reason: Per Protocol Pantoprazole Sodium 80 mg/ (Sodium Chloride) 100 mls @ 10 mls/hr IV.CONT CONT NAVID Sodium Chloride (Ns Flush) 2 ml IV.FLUSH PRN PRN PRN Reason: FLUSH AFTER USING IV ACCESS Terbutaline Sulfate (Brethine Inj) 1 mg SQ UNSCH PRN PRN Reason: For Extravasation Allergies Allergy/AdvReac Type Severity Reaction Status Date / Time codeine Allergy Severe HIVES Verified 03/01/18 21:37 phenytoin Allergy Severe HIVES Verified 03/01/18 21:37 Home Medications Medication Instructions Recorded Confirmed Type No Known Home Medications 02/20/18 03/01/18 History Results - Labs CBC & Chem 7: 03/02/18 01:03 03/02/18 01:03 Labs: Short CBC 03/01/18 Range/Units 21:45 WBC 14.9 H (4.0-11.0) th/mm3 Hgb 5.3 L* (13.0-17.0) gm/dL Hct 17.1 L* (39.0-51.0) % Plt Count 148 L D (150-450) th/mm3 BMP 03/01/18 21:45 Sodium 143 Potassium 3.8 Chloride 109 H Carbon Dioxide 23.2 BUN 8 Creatinine 0.80 Calcium 6.4 L* Liver Function 03/01/18 Range/Units 21:45 Total Bilirubin 0.8 (0.2-1.0) mg/dL AST 25 (15-37) U/L ALT 15 (12-78) U/L Alkaline Phosphatase 83 (45-117) U/L Albumin 1.6 L (3.4-5.0) g/dL - Imaging Impressions Chest X-Ray 03/01/18 21:38 CONCLUSION: Minimal basilar atelectasis. No active disease. Exam Vital signs: Vital Signs 03/01/18 21:33 03/01/18 21:37 03/01/18 21:40 Temperature 100.8 F H Pulse Rate 138 H 133 H Respiratory Rate 20 18 Blood Pressure 115/56 L Pulse Oximetry 99 99 99 Intake & Output 03/01/18 03/01/18 03/02/18 06:59 18:59 06:59 Weight 72.575 kg Septic Shock Reassessment Septic shock perfusion: reassessment completed Caprini VTE Risk Assessment Caprini VTE Risk Assessment: Moderate/High Risk (score >= 2) VTE Pharmacological Exception Reason: Hemorrhage Caprini Risk Assessment Model: Point Value = 1 Point Value = 2 Point Value = 3 Point Value = 5 Age 41-60 Minor surgery BMI > 25 kg/m2 Swollen legs Varicose veins or History of unexplained or recurrent spontaneous Oral contraceptives or hormone replacement Sepsis (< 1 month) Serious lung disease, including pneumonia (< 1 month) Abnormal pulmonary function Acute myocardial infarction Congestive heart failure (< 1 month) History of inflammatory bowel disease Medical patient at bed rest Age 61-74 Arthroscopic surgery Major open surgery (> 45 min) Laparoscopic surgery (> 45 min) Malignancy Confined to bed (> 72 hours) Immobilizing plaster cast Central venous access Age >= 75 History of VTE Family history of VTE Factor V Leiden Prothrombin [id number] Lupus anticoagulant Anticardiolipin antibodies Elevated serum homocysteine Heparin-induced thrombocytopenia Other congenital or acquired thrombophilia Stroke (< 1 month) Elective arthroplasty Hip, pelvis, or leg fracture Acute spinal cord injury (< 1 month) Prophylaxis Regimen: Total Risk Factor Score Risk Level Prophylaxis Regimen 0-1 Low Early ambulation 2 Moderate Order ONE of the following: *Sequential Compression Device (SCD) *Heparin 5000 units SQ BID 3-4 Higher Order ONE of the following medications: *Heparin 5000 units SQ TID *Enoxaparin/Lovenox 40 mg SQ daily (WT < 150 kg, CrCl > 30 mL/min) *Enoxaparin/Lovenox 30 mg SQ daily (WT < 150 kg, CrCl > 10-29 mL/min) *Enoxaparin/Lovenox 30 mg SQ BID (WT < 150 kg, CrCl > 30 mL/min) AND/OR *Sequential Compression Device (SCD) 5 or more Highest Order ONE of the following medications: *Heparin 5000 units SQ TID (Preferred with Epidurals) *Enoxaparin/Lovenox 40 mg SQ daily (WT < 150 kg, CrCl > 30 mL/min) *Enoxaparin/Lovenox 30 mg SQ daily (WT < 150 kg, CrCl > 10-29 mL/min) *Enoxaparin/Lovenox 30 mg SQ BID (WT < 150 kg, CrCl > 30 mL/min) AND *Sequential Compression Device (SCD) Assessment and Plan - Assessment and Plan Plan: Neuro/Psych: Acute toxic metabolic encephalopathy Midazolam/fentanyl drips for sedation/analgesia while intubated Goal of RA SS -2 Daily sedation vacation CV: Acute hemorrhagic shock Lactic acidosis Transfuse as clinically indicated. Norepinephrine to maintain mean arterial pressure greater than equal to 65 Follow-up on troponin/EKG Serial lactates until cleared Currently normal saline 84 cc an hour Resp: Acute respiratory failure PRVC ventilation Albuterol/ipratropium aerosols every 4 hours with albuterol aerosols every 2 hours as needed dyspnea Ventilator bundle Spontaneous breathing trials and clinically indicated GI: Upper GI bleed secondary to esophageal varices Liver cirrhosis Hepatitis C Elevated ammonia Status post upper endoscopy by Dr. Christianson 2. Assess epinephrine. Fantasma tube is in place. Serial hemoglobins as below's Plan to stabilize. If coagulopathy resolves possible intervention with Dr. Fritz/IR Transfer for TIPS when stable Currently on pantoprazole drip at 8 mg an hour and octreotide drips at 50 jamari grams per hour Check ammonia level in a.m. Unable to provide lactulose or rifaximin with Fantasma tube in place/acute bleed : Raygoza cath catheter Endo: Sliding scale insulin Accu-Cheks to maintain euglycemia Renal: Creatinine currently within normal limit Accurate I's and O's Monitor urine output Heme: Acute blood loss anemia Acute coagulopathy leukocytosis Thrombocytopenia Has received 13 PRBCs, 450, 1 cryo, 3 platelets and currently 3500 units K Centra now. Serial hemoglobins Recheck coags in a.m. ID: Start on ceftriaxone 1 g every 24 hours for upper GI bleed MSK: PT evaluate and treat FEN: Acute hypernatremia Replace electrolytes as clinically indicated Access -Utilize peripheral IV. Maintain right femoral CVL Prophylaxis -GI -pantoprazole drip -DVT -SCD/pharmacological prophylaxis contraindicated with acute bleed Critical care time 35 minutes Code Status: Full code Discussed Condition With: Dr. Fritz, interventional radiology. Dr. Moeller/GI. Care plan discussed and all questions answered.
[2018-03-01] MEDS ORDERED: Bisacodyl 10 MG Supp RECTAL PRN (23:48)
[2018-03-01] MEDS ORDERED: fentaNYL 10 mcg/mL Premix Drip 2,500 MCG/250 ML BAG IV.SIG PRN (23:49)
[2018-03-01 23:50] LABS: ABG Base Excess -14.3 mmol/L (-2-2); ABG PCO2 33 mmHg (38-42); ABG PO2 331 mmHg (61-120)
[2018-03-01] MEDS ORDERED: Potassium Phosphate Inj 30 MMOL in Sodium Chlor 0.9% Inj 250 ML IV.SIG PRN (23:55)
[2018-03-01] MEDS ORDERED: Potassium Phosphate 500 MG Soluble Tablet PO PRN ×2 (23:55)
[2018-03-01] MEDS ORDERED: Magnesium Sulfate Inj 2 GM in Sodium Chlor 0.9% Inj 96 ML IV.SIG PRN (23:55)
[2018-03-01] MEDS ORDERED: Magnesium Sulfate Inj 4 GM in Sodium Chlor 0.9% Inj 92 ML IV.SIG PRN (23:55)
[2018-03-01] MEDS ORDERED: Dextrose 50% in Water 50 ML Vial IV.PUSH PRN (23:55)
[2018-03-01] MEDS ORDERED: Potassium Chlor 20 mEq Premix 20 MEQ/100 ML PIGGYBACK IV.SIG PRN (23:55)
[2018-03-01] MEDS ORDERED: Magnesium Oxide 400 MG Tablet PO PRN (23:55)
[2018-03-01] MEDS ORDERED: Sodium Phosphate Inj 30 MMOL in Sodium Chlor 0.9% Inj 250 ML IV.SIG PRN (23:55)
[2018-03-02] MEDS ORDERED: Insulin NovoLOG Aspart Correctional Sugar Inj SQ SCH
[2018-03-02] MEDS ORDERED: Phenylephrine/NS 1000 MCG/10ML Syringe IV.PUSH ONE (00:12)
[2018-03-02] MEDS ORDERED: Sod Chloride 0.9% Inj 3,000 ML IV.CONT ONE (00:12)
[2018-03-02] MEDS: Octreotide Inj 500 MCG in Sodium Chlor 0.9% Inj 500 ML IV.CONT SCH ×3 (00:27→18:49)
--- NOTE | 2018-03-02 00:37 | XR ---
EXAM DATE: 03/01/2018 11:43 PM EDT AGE/SEX: 33 years / Male INDICATIONS: Post intubation CLINICAL DATA: This is the patient's initial encounter. Patient reports that signs and symptoms have been present for 1 day and indicates a pain score of Nonresponsive. MEDICAL/SURGICAL HISTORY: . Afib. Hepatitis C. HTN. Liver cirrhosis. Substance abuse None. COMPARISON: [facility], CHEST 1V SINGLE AP, 03/01/2018. . FINDINGS: Endotracheal tube tip extends into the right mainstem bronchus. Retraction by several centimeters of the recommended. Nasogastric tube descends into the stomach. There appears to be slight parenchymal o pacity at the lateral left lung base. Lungs otherwise grossly clear. Cardiac contours are satisfactor y. CONCLUSION: Endotracheal tube tip is in the right mainstem bronchus. Retraction by 3 cm would be optimal Electronically signed by: Yosi Hoffman MD 03/02/2018 12:36 AM EDT
[2018-03-02] MEDS ORDERED: ALBUMIN HUMAN 5% IV.SIG ONE (00:38)
[2018-03-02] MEDS: Midazolam 50 MG/50 ML Inj 50 MG/50 ML BAG IV.CONT PRN ×5 (00:53→21:38)
[2018-03-02] MEDS: fentaNYL 10 mcg/mL Premix Drip 2,500 MCG/250 ML BAG IV.SIG PRN ×2 (00:54→17:37)
--- NOTE | 2018-03-02 01:05 | GIPROC ---
[facility] [address] [facility], [address] EGD PROCEDURE REPORT EXAM DATE: 03/01/2018 PATIENT NAME: Erick Bonilla MR #: [id number] BIRTHDATE: 1985 ATTENDING: Lennie Moeller MD ORDER #: [id number] ASSISTANT CUSTOMER SERVICE MANAGER: Lexie Chisholm and [employer] Foreman STATUS: outpatient INDICATIONS: The patient is a 33 yr old male here for an EGD due to gi bleeding PROCEDURE PERFORMED: EGD, diagnostic MEDICATIONS: None and Per Anesthesia. TOPICAL ANESTHETIC: none CONSENT: The patient understands the risks and benefits of the procedure and understands that these risks include, but are not limited to: sedation, allergic reaction, infection, perforation and/or bleeding. Alternative means of evaluation and treatment include, among others: physical exam, x-rays, and/or surgical intervention. The patient elects to proceed with this endoscopic procedure. medical equipment was checked for proper function. Hand hygiene and appropriate measures for infection prevention was taken. After the risks, benefits and alternatives of the procedure were thoroughly explained, Informed consent was verified, confirmed and timeout was successfully executed by the treatment team. The patient was anesthetized with topical anesthesia and the Pentax EG-[id number] endoscope was introduced through the mouth and advanced to the second portion of the duodenum. Retroflexed views revealed large amount of blood The gastroscope was then slowly withdrawn and removed. Large amount of blood in stomach fresh blood in esophagus -arterial looking-could not be washed ulcers from previous banding site seen-possible source of bleeding epinephrine 6 cc -injected large amount of fresh blood Edel tube placed. ADVERSE EVENTS: There were no complications. IMPRESSIONS: 1. Large amount of blood in stomach fresh blood in esophagus -arterial looking-could not be washed ulcers from previous banding site seen-possible source of bleeding epinephrine 6 cc -injected large amount of fresh blood Edel tube placed 2. Retroflexed views revealed large amount of blood RECOMMENDATIONS: Consult IR for angiogram stat continue Octreotide , PPi transfuse ffp, prbc iv antibiotics PATIENT CONDITION: stable DISPOSITION: Inpatient REPEAT EXAM: Return 1 day EGD Lennie Moeller MD eSigned: Lennie Moeller MD 03/02/2018 1:05 AM cc: PATIENT NAME: Erick Bonilla MR#: [id number]
[2018-03-02 01:19] LABS: ABG Base Excess -12.5 mmol/L (-2-2); ABG PCO2 44 mmHg (38-42); ABG PO2 397 mmHG (61-120)
[2018-03-02 01:33] LABS: Mean Corpuscular HGB Conc 33.1 % (32.0-36.0); Mean Corpuscular Hemoglobin 29.7 pg (27.0-34.0); Mean Corpuscular Volume 89.6 fL (80.0-100.0); Mean Platelet Volume 8.5 fL (7.0-11.0); Platelet Count 38 th/mm3 (150-450); Red Blood Count 2.27 mil/mm3 (4.50-5.90); Red Cell Distribution Width 14.6 % (11.6-17.2); White Blood Count 18.4 th/mm3 (4.0-11.0)
[2018-03-02 01:38] LABS: Hematocrit 20.3 % (39.0-51.0); Hemoglobin 6.7 gm/dL (13.0-17.0)
[2018-03-02 01:51] LABS: ABG Base Excess -5.3 mmol/L (-2-2); ABG PCO2 44 mmHg (38-42); ABG PO2 421 mmHG (61-120)
[2018-03-02 02:00] LABS: Anion Gap 16 meq/L (5-15); Blood Urea Nitrogen 8 mg/dL (7-18); Calcium 5.7 mg/dL (8.5-10.1); Carbon Dioxide 18.2 meq/L (21.0-32.0); Chloride 112 meq/L (98-107); Glomerular Filtration Rate Greater Than 89 mL/min (>89); Glucose,Random 74 mg/dL (74-106); Potassium 4.3 meq/L (3.5-5.1); Sodium 146 meq/L (136-145)
[2018-03-02 02:24] LABS: Calcium-Albumin Corrected 8.5 mg/dL (8.5-10.1); Total Protein 1.9 g/dL (6.4-8.2)
[2018-03-02] MEDS ORDERED: Phytonadione Inj 10 MG in Sodium Chlor 0.9% Inj 50 ML IV.SIG ONE (02:30)
[2018-03-02] MEDS ORDERED: PROTHROMBIN COMPLEX IV.SIG ONE (02:30)
--- NOTE | 2018-03-02 02:50 | MB ---
cc: Lennie Moeller MD DATE: 03/01/2018 REFERRING PHYSICIAN: Dr. Dupree. REASON FOR CONSULTATION: Massive GI bleed. HISTORY OF PRESENT ILLNESS: Mr. Bonilla is a 33-year-old gentleman with history of liver cirrhosis secondary to hepatitis C and alcohol use, came to the emergency room with massive GI bleed. The patient was admitted recently for similar symptoms. He underwent an upper endoscopy with band ligation done at the end of January. The patient was evaluated in the emergency room. He was brought by EMS. He was found to be hypotensive, vomited approximately 1400 mL of fresh blood. Emergency room contacted me for emergent endoscopy. Arrangements were made in the interim. The patient got intubated due to hypotension and tachycardia, received 3 units of PRBC and he is on pressors. Mother at bedside. Risks and benefits of the above procedure were discussed with her and she is agreeing with it. PAST MEDICAL HISTORY: The patient had history of liver cirrhosis, hepatitis C, hypertension, substance abuse. ALLERGIES: CODEINE AND PHENYTOIN. MEDICATIONS: 1. Albuterol. 2. Bisacodyl. 3. Octreotide. 4. Protonix. 5. Fentanyl. 7. Lactulose. 8. Norepinephrine. 9. Protonix. At home, unknown medication at this time. SOCIAL HISTORY: He smokes. He does have a history of substance abuse. REVIEW OF SYSTEMS: Cannot be performed. PHYSICAL EXAMINATION: GENERAL: He is sitting in bed, intubated, has blood on his shorts and around his mouth. Pale. NECK: No JVD. No lymphadenopathy. CHEST: Clear to auscultation on palpation. CARDIOVASCULAR: S1, S2. No murmur. ABDOMEN: Distended, mild ascites, sedated. EXTREMITIES: Pedal edema. LABORATORY DATA: Hemoglobin on admission was 5.3. Of note, he was discharged on 02/24/2018 with a hemoglobin at 8.3, platelets 89, today platelets 148, white count 14.1. PT/INR 16.4 and 1.6, was discharged with 13.6 and 1.3. His chemistry is suggestive of glucose 139, calcium 6.4. Liver enzymes normal. Ammonia 62. On previous admission, the patient had a CT abdomen and pelvis on 02/20/2018 that was suggestive of marked cirrhotic appearance of the liver, upper abdominal varices including esophageal varices and prominent splenomegaly, enlarged periportal lymph nodes, trace ascites. IMPRESSION: Massive gastrointestinal bleed, most likely secondary to portal hypertension, possible from the site of previous bands versus esophageal varices. RECOMMENDATIONS: Emergent endoscopy with possible banding will be scheduled. Risks and benefits were discussed with the mother, which is in agreement. Supportive care. Overall, poor prognosis. IV antibiotics. Rocephin was started already in the emergency room. Further recommendation will depend on the patient's clinical status on the above results. Lennie Moeller MD BSB/sv , 01:41 AM , 01:50 AM
[2018-03-02 02:59] LABS: ABG Base Excess -5.3 mmol/L (-2-2); ABG PCO2 46 mmHg (38-42); ABG PO2 105 mmHG (61-120)
--- NOTE | 2018-03-02 03:25 | XR ---
EXAM DATE: 03/02/2018 3:15 AM EDT AGE/SEX: 33 years / Male INDICATIONS: Central line placement. ET tube adjustment. CLINICAL DATA: This is the patient's initial encounter. Patient reports that signs and symptoms have been present for 1 day and indicates a pain score of Nonresponsive. MEDICAL/SURGICAL HISTORY: . Afib. Hepatitis C. HTN. Liver cirrhosis. Substance abuse None. COMPARISON: [place], CHEST 1V SINGLE AP, 03/01/2018. . FINDINGS: Endotracheal tube tip has been adjusted and is now 4 cm above the jennifer. A Fantasma tube is present and may be positioned too deep into the stomach, however the tube is not seen in its entirety. A rig ht neck central line descends into the SVC. Patchy bilateral perihilar and basilar infiltrates are pr esent. The cardiac contours are grossly unchanged. CONCLUSION: Endotracheal tube and central line positioning is satisfactory. The Fantasma tube may be too deep. Worsening aeration. Electronically signed by: Yosi Hoffman MD 03/02/2018 3:23 AM EDT
[2018-03-02] MEDS ORDERED: Chlorhexidine Gluconate 2% 1 Pack (2 Cloths) TOPICAL PRN (04:00)
[2018-03-02 06:53] LABS: Hematocrit 34.7 % (39.0-51.0); Hemoglobin 11.8 gm/dL (13.0-17.0); Mean Corpuscular Hemoglobin 30.2 pg (27.0-34.0); Mean Corpuscular Volume 88.7 fL (80.0-100.0); Mean Platelet Volume 8.2 fL (7.0-11.0); Platelet Count 77 th/mm3 (150-450); Red Blood Count 3.91 mil/mm3 (4.50-5.90); Red Cell Distribution Width 15.8 % (11.6-17.2); White Blood Count 9.8 th/mm3 (4.0-11.0)
[2018-03-02 06:58] LABS: ABG Base Excess -9.3 mmol/L (-2-2); ABG PCO2 33 mmHg (38-42); ABG PO2 138 mmHG (61-120)
[2018-03-02 07:25] LABS: Albumin 2.2 g/dL (3.4-5.0); Calcium 6.3 mg/dL (8.5-10.1); Carbon Dioxide 21.9 meq/L (21.0-32.0); Magnesium 1.8 mg/dL (1.5-2.5); Phosphorus 5.8 mg/dL (2.5-4.9); Potassium 5.4 meq/L (3.5-5.1); Total Protein 4.5 g/dL (6.4-8.2); Troponin I 0.18 ng/mL (0.02-0.05)
[2018-03-02 07:29] LABS: Activated Partial Thrombo Time 51.3 sec (23.4-31.7); INR 1.4 Ratio; Prothrombin Time 13.9 sec (9.8-11.6)
[2018-03-02] MEDS ORDERED: Sodium Bicarbonate 8.4% Inj 50 MEQ/50 ML Syringe IV.PUSH ONE (07:52)
[2018-03-02] MEDS: Multivitamin Inj 10 ML, Thiamine Inj 100 MG, Folic Acid Inj 1 MG in Sodium Chlor 0.9% I... IV.SIG SCH (07:54)
[2018-03-02] MEDS: Oral Hygiene Kit OROPHARYNG SCH ×4 (07:56→17:35)
[2018-03-02] MEDS: Chlorhexidine Gluconate 2% 1 Pack (2 Cloths) TOPICAL SCH (07:58)
[2018-03-02] MEDS ORDERED: Sodium Chlor 0.9% Inj 250 ML IV.SIG SCH ×2 (08:00→13:00)
[2018-03-02] MEDS: Chlorhexidine 0.12% Oral Kit 15 ML UDC OROPHARYNG SCH ×2 (09:10→21:40)
[2018-03-02 09:32] LABS: Activated Partial Thrombo Time 39.6 sec (23.4-31.7); INR 1.7 Ratio; Prothrombin Time 17.4 sec (9.8-11.6)
[2018-03-02] MEDS: Artificial Tears Opth Drops 15 ML Bottle EACH EYE SCH ×3 (09:49→17:35)
[2018-03-02] MEDS: Senna/Docusate Sodium 8.6/50 MG Tablet PO SCH ×2 (09:49→21:41)
[2018-03-02 09:59] LABS: Hematocrit 27.8 % (39.0-51.0); Hemoglobin 10.1 gm/dL (13.0-17.0); Mean Corpuscular Hemoglobin 30.6 pg (27.0-34.0); Mean Corpuscular Volume 84.4 fL (80.0-100.0); Mean Platelet Volume 7.4 fL (7.0-11.0); Platelet Count 48 th/mm3 (150-450); Red Cell Distribution Width 15.9 % (11.6-17.2); White Blood Count 8.8 th/mm3 (4.0-11.0)
[2018-03-02 10:00] LABS: Mean Corpuscular HGB Conc 36.2 % (32.0-36.0)
[2018-03-02] MEDS ORDERED: FACTOR VIIA IV.PUSH ONE (10:00)
[2018-03-02 10:09] LABS: INR 1.8 Ratio
[2018-03-02] MEDS ORDERED: fentaNYL Citrate Inj 100 MCG/2 ML Ampul ONE (11:15)
[2018-03-02] MEDS ORDERED: fentaNYL Citrate Inj 100 MCG/2 ML Ampul IV.PUSH ONE (11:30)
[2018-03-02 12:07] LABS: ABG Base Excess -1.6 mmol/L (-2-2); ABG PCO2 39 mmHg (38-42); ABG PO2 71 mmHG (61-120)
[2018-03-02] MEDS: Insulin NovoLIN Regular Correctional Sugar Inj SQ SCH ×2 (12:55→17:33)
[2018-03-02] MEDS ORDERED: Phytonadione Inj 10 MG/ML Vial SQ ONE (13:00)
[2018-03-02] MEDS ORDERED: Prothrombin Complex Conc Inj 2,500 UNIT in Syringe/Bag 1 EACH IV.SIG ONE (13:00)
--- NOTE | 2018-03-02 13:47 | P.PNCC ---
Subjective Subjective Remarks/Hospital Course: Hospital Course: This is a 33-year-old male. Date of admission 03/01/2018. Past medical includes hepatitis C, known liver cirrhosis, esophageal varices patient was actually admitted 02/14 with upper GI bleed. Patient had 3 columns of 2-3 grade esophageal varices that evaluated Sean with banding.. Patient presents to [facility] 03/01 witha chief complaint of hematemesis. EMS reports that his initial blood pressure on their arrival was in the 70s-80s with a heart rate in the 150s. They state that he has put out copious amounts of hematemesis. Patient states that this began approximately 30 minutes prior to arrival. He does admit to fever and chills as well with abdominal pain. No headache no recent trauma. No chest pain or shortness of breath. Patient was emergently intubated and central line was placed in the femoral region. Hemoglobin is noted to be 5.2. Emergently transfused 3 units PRBCs. GI was consulted to try to perform an upper endoscopy revealed copious amounts of blood in the esophagus. Epinephrine injection was attempted. Fantasma tube was placed. IR was called. Repeat laboratories revealed significant coagulopathy with elevated INR/PTT and low fibrinogen. Unable to do intervention. State they do not tips at this facility. Patient needs to be stabilized prior to any transfer. Remains intubated on low-dose norepinephrine drip. Currently receiving K Centra, FFP and cryoprecipitate. Subjective: 03/02: remains in active hemorrhagic shock. bleeding continues to be uncontrolled. massive transfusion is ongoing. Totals currently: 22 prbc 16 FFP 4 plt 4 Cryo off levophed, but still actively bleeding, suctioning bright red blood from mouth and having bright red bloody bowel movements. Fantasma remains in place. lactate 11. remains acidotic. Objective Vital Signs / I&O: Vital Signs 03/01/18 21:33 03/01/18 21:37 03/01/18 21:40 Temperature 38.2 C H Pulse Rate 138 H 133 H Respiratory Rate 20 18 Blood Pressure 115/56 L Pulse Oximetry 99 99 99 03/01/18 21:55 03/01/18 22:00 03/01/18 22:55 Temperature Pulse Rate 105 H 151 H Respiratory Rate 16 18 16 Blood Pressure 105/49 L 87/48 L Pulse Oximetry 98 100 100 03/01/18 23:00 03/01/18 23:55 03/02/18 04:00 Temperature Pulse Rate 131 H 115 H 102 H Respiratory Rate 16 16 22 Blood Pressure 103/48 L 106/76 128/76 Pulse Oximetry 100 99 100 03/02/18 05:10 03/02/18 08:50 03/02/18 09:21 Temperature Pulse Rate 81 109 H 112 H Respiratory Rate 20 21 22 Blood Pressure 135/73 Pulse Oximetry 100 03/02/18 09:23 03/02/18 10:01 03/02/18 10:34 Temperature 36.9 C Pulse Rate 108 H 111 H 109 H Respiratory Rate 21 21 21 Blood Pressure 138/74 142/93 H Pulse Oximetry 100 03/02/18 11:30 03/02/18 11:34 03/02/18 11:53 Temperature Pulse Rate 104 H 105 H 103 H Respiratory Rate 22 26 H 20 Blood Pressure 142/82 H 153/88 H 125/65 Pulse Oximetry 03/02/18 11:56 03/02/18 13:10 03/02/18 13:13 Temperature 36.9 C Pulse Rate 108 H 94 H 94 H Respiratory Rate 20 20 20 Blood Pressure 100/51 L 148/88 H 148/88 H Pulse Oximetry Intake & Output 03/01/18 03/02/18 03/02/18 18:59 06:59 18:59 Intake Total 4050 / 4050 7991.5 / 7991.5 Output Total 3200 / 3200 Balance 850 / 850 7991.5 / 7991.5 Weight 102.8 kg Intake: IV 50 / 50 550.5 / 550.5 Versed Inj 50 mg In 50 ml @ 2 50 / 50 50 / 50 MG/HR 2 mls/hr IV.CONT TITRATE PRN Rx#:[id number] SandoSTATIN Inj 500 MCG In NS 500.5 / 500.5 Inj 500 ML @ 50 MCG/HR 50.05 mls/hr IV.CONT .Q10H [facility] Rx#: [id number] Intake (Blood Product) Amt 4000 / 4000 7441 / 7441 Plasma Thawed 5 Day Acda Unit 0 / 0 214 / 214 [id number] Plasma Thawed 5 Day Cp2d Unit 0 / 0 [id number] Plasma Thawed 5 Day Cp2d Unit 0 / 0 315 / 315 [id number] Plasma Thawed 5 Day Cp2d Unit 0 / 0 317 / 317 [id number] Plasma Thawed 5 Day Cp2d Unit 0 / 0 335 / 335 [id number] Plt Pheresis B Leukoreduced 0 / 0 206 / 206 Unit [id number] Plt Pheresis B Leukoreduced 0 / 0 196 / 196 Unit [id number] Plt Pheresis B Leukoreduced 278 / 278 Unit [id number] Plt Pheresis S Leukoreduced 0 / 0 325 / 325 Unit [id number] Pre-Pooled Cryo Thawed 10units 0 / 0 226 / 226 Unit [id number] Pre-Pooled Cryo Thawed 10units 0 / 0 229 / 229 Unit [id number] Pre-Pooled Cryo Thawed 10units 0 / 0 Unit [id number] Rbc As-3 Leukoreduced Unit 0 / 0 400 / 400 [id number] Rbc As-3 Leukoreduced Unit 400 / 400 [id number] Rbc As-3 Leukoreduced Unit 400 / 400 [id number] Rbc As-3 Leukoreduced Unit 0 / 0 400 / 400 [id number] Rbc As-3 Leukoreduced Unit 400 / 400 [id number] Rbc As-3 Leukoreduced Unit 400 / 400 [id number] Rbc As-3 Leukoreduced Unit 400 / 400 [id number] Rbc As-3 Leukoreduced Unit 400 / 400 [id number] Rbc As-3 Leukoreduced Unit 400 / 400 [id number] Rbc As-3 Leukoreduced Unit 400 / 400 [id number] Rbc As-3 Leukoreduced Unit 0 / 0 400 / 400 [id number] Rbc As-3 Leukoreduced Unit 400 / 400 [id number] Rbc As-3 Leukoreduced Unit 0 / 0 400 / 400 [id number] Rbc As-3 Leukoreduced Unit 0 / 0 400 / 400 [id number] Rbc As-3 Leukoreduced Unit 400 / 400 [id number] Rbc As-3 Leukoreduced Unit 400 / 400 [id number] Rbc As-3 Leukoreduced Unit 400 / 400 [id number] Rbc As-3 Leukoreduced Unit 400 / 400 [id number] Rbc As-3 Leukoreduced Unit 400 / 400 [id number] Rbc As-3 Leukoreduced Unit 0 / 0 400 / 400 [id number] Rbc As-3 Leukoreduced Unit 400 / 400 [id number] Rbc As-3 Leukoreduced Unit 400 / 400 [id number] Output: Emesis 1400 / 1400 Urine Amount (Catheter) 1000 / 1000 Indwelling Urethral Catheter 1000 / 1000 Gastric Drainage 800 / 800 Oral Orogastric Tube 800 / 800 Other: Weight On Admission 102.8 kg Result Diagrams: 03/02/18 09:45 03/02/18 06:20 Objective Remarks: GENERAL: Young male, lying in bed, critically ill, intubated, sedated. Despite multiple bedsheet changes, the bed sheets are saturated and bright red blood there is bright red blood oozing out of the nose and mouth. HEENT: Normocephalic. Atraumatic. Pupils equal, round, reactive, conjugate. Mucous membranes are moist. There is a Fantasma tube in place with a helmet in place. NECK: Trachea is midline. There is no JVD. Right IJ introducer sheath in place , site is clean dry and intact CHEST: PRVC mode. FiO2 50%. Equal chest rise. CARDIOVASCULAR: Tachycardic rate, regular rhythm. Sinus. ABDOMEN: Soft, nontender, distended with a positive fluid wave. No guarding. MUSCULOSKELETAL: Pulses 2+. 1+ peripheral edema. There is a right femoral triple-lumen catheter in place, site is clean dry and intact. NEUROLOGICAL: RASS -2. Withdraws to pain x4. Does not follow commands. 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 He remains very critically ill. He is still an active drinker and is thus there is nothing we can do right now except continue ongoing active transfusions. GI has been consulted. He underwent emergent scope this morning with banding, which is not completely solve the problem. Neuro/Psych: Acute toxic metabolic encephalopathy Hepatic encephalopathy Midazolam/fentanyl drips for sedation/analgesia while intubated Goal of RASS -2 Daily sedation vacation CV: Acute hemorrhagic shock-persistent Lactic acidosis Continue massive transfusion resuscitation efforts Norepinephrine to maintain mean arterial pressure greater than equal to 65 mmHg Follow-up on troponin/EKG Serial lactates until cleared Decrease normal saline to 42 cc/hr Resp: Acute hypoxic and hypercarbic respiratory failure PRVC ventilation Albuterol/ipratropium aerosols every 4 hours with albuterol aerosols every 2 hours as needed dyspnea Ventilator bundle Spontaneous breathing trials and clinically indicated: No SBT while in shock GI: Upper GI bleed secondary to esophageal varices Liver cirrhosis Hepatitis C Elevated ammonia Status post upper endoscopy by Dr. Moeller. Injected epinephrine. Fantasma tube is in place. Serial hemoglobins as below's Plan to stabilize. If coagulopathy resolves possible intervention with Dr. Fritz/IR Transfer for TIPS when stable Currently on pantoprazole drip at 8 mg an hour and octreotide drips at 50 mcg/hr Check ammonia level in a.m. Unable to provide lactulose or rifaximin with Fantasma tube in place/acute bleed : Raygoza cath catheter Endo: Sliding scale insulin Accu-Cheks to maintain euglycemia Renal: Creatinine currently within normal limit Accurate I's and O's Monitor urine output Heme: Acute blood loss anemia Acute coagulopathy leukocytosis Thrombocytopenia DIC will give another dose of KCentra as well as 1mg Factor VII. continue massive transfusion serial CBC, coag. goal hgb > 8 while active hemorrhage, INR < 1.4, fibrinogen > 150, plt > 100k. additional vit K 10mg SQ. ID: ceftriaxone 1 g every 24 hours for upper GI bleed MSK: PT evaluate and treat FEN: Acute hypernatremia Replace electrolytes as clinically indicated Access -Utilize peripheral IV. Maintain right femoral CVL Prophylaxis -GI -pantoprazole drip -DVT -SCD/pharmacological prophylaxis contraindicated with acute bleed This patient remains critically ill with one or more organ systems which are or may become a threat to life. I have spent in excess of 118 minutes discontinuously in the care and management of this patient. This time is exclusive of procedures, and includes, but is not limited to, evaluation of the patient, review of the medical record, discussions with family, consultants, nursing staff, or respiratory therapy, and documentation in the medical record.
[2018-03-02 14:07] LABS: Hematocrit 41.1 % (39.0-51.0); Hemoglobin 14.9 gm/dL (13.0-17.0); Mean Corpuscular Hemoglobin 30.1 pg (27.0-34.0); Platelet Count 33 th/mm3 (150-450); Red Blood Count 4.95 mil/mm3 (4.50-5.90); Red Cell Distribution Width 14.5 % (11.6-17.2); White Blood Count 9.7 th/mm3 (4.0-11.0)
[2018-03-02 14:23] LABS: Activated Partial Thrombo Time 37.3 sec (23.4-31.7); INR 1.5 Ratio; Prothrombin Time 15.1 sec (9.8-11.6)
[2018-03-02 14:39] LABS: Mean Corpuscular HGB Conc 36.2 % (32.0-36.0)
[2018-03-02] MEDS: Propofol 1000 mg/100 ml Inj 1,000 MG/100 ML BOTTLE IV.CONT PRN ×2 (17:37→21:31)
[2018-03-02] MEDS: Dextrose 10% in Water Inj 1,000 ML IV.SIG SCH (18:46)
[2018-03-02 18:51] LABS: Hematocrit 34.8 % (39.0-51.0); Hemoglobin 12.7 gm/dL (13.0-17.0); Mean Corpuscular Hemoglobin 30.2 pg (27.0-34.0); Mean Corpuscular Volume 82.6 fL (80.0-100.0); Mean Platelet Volume 7.9 fL (7.0-11.0); Platelet Count 30 th/mm3 (150-450); Red Blood Count 4.22 mil/mm3 (4.50-5.90); Red Cell Distribution Width 14.7 % (11.6-17.2); White Blood Count 6.7 th/mm3 (4.0-11.0)
[2018-03-02 18:52] LABS: Mean Corpuscular HGB Conc 36.6 % (32.0-36.0)
[2018-03-02 19:20] LABS: Alanine Aminotransferase 179 U/L (12-78); Albumin 2.5 g/dL (3.4-5.0); Alkaline Phosphatase 73 U/L (45-117); Anion Gap 10 meq/L (5-15); Aspartate Aminotransferase 407 U/L (15-37); Blood Urea Nitrogen 13 mg/dL (7-18); Calcium 6.8 mg/dL (8.5-10.1); Carbon Dioxide 29.1 meq/L (21.0-32.0); Chloride 107 meq/L (98-107); Glomerular Filtration Rate Greater Than 89 mL/min (>89); Glucose,Random 75 mg/dL (74-106); Potassium 3.5 meq/L (3.5-5.1); Sodium 146 meq/L (136-145); Total Protein 4.9 g/dL (6.4-8.2)
--- NOTE | 2018-03-02 20:39 | P.PNGI ---
Subjective Interval history: Late entry .Intubated , sedated .Patient was brought to interventional radiology earlier this am for possible TIPS, angiogram. Repeat pt/inr, fibrinogen suggested severe coagulopathy, possible DIC. evaluated patient , was decided to hold off on procedures due to sever coagulopathy .Case was discussed with eyewear manufacturing tech and haim with his family-mother . He continues to have bleeding from mouth, rectal bleeding, receiving massive transfusion. Edel placed ,may need to be deflated in am . Physical Exam Vital signs: Vital Signs 03/01/18 21:33 03/01/18 21:37 03/01/18 21:40 Temperature 100.8 F H Pulse Rate 138 H 133 H Respiratory Rate 20 18 Blood Pressure 115/56 L Pulse Oximetry 99 99 99 03/01/18 21:55 03/01/18 22:00 03/01/18 22:55 Temperature Pulse Rate 105 H 151 H Respiratory Rate 16 18 16 Blood Pressure 105/49 L 87/48 L Pulse Oximetry 98 100 100 03/01/18 23:00 03/01/18 23:55 03/02/18 04:00 Temperature Pulse Rate 131 H 115 H 102 H Respiratory Rate 16 16 22 Blood Pressure 103/48 L 106/76 128/76 Pulse Oximetry 100 99 100 03/02/18 05:10 03/02/18 08:00 03/02/18 08:50 Temperature 98.5 F Pulse Rate 81 112 H 109 H Respiratory Rate 20 38 H 21 Blood Pressure 175/106 H Pulse Oximetry 100 100 03/02/18 09:21 03/02/18 09:23 03/02/18 10:00 Temperature Pulse Rate 112 H 108 H 110 H Respiratory Rate 22 21 Blood Pressure 135/73 138/74 Pulse Oximetry 03/02/18 10:01 03/02/18 10:34 03/02/18 11:30 Temperature 98.5 F Pulse Rate 111 H 109 H 104 H Respiratory Rate 21 21 22 Blood Pressure 142/93 H 142/82 H Pulse Oximetry 100 03/02/18 11:34 03/02/18 11:53 03/02/18 11:56 Temperature 98.5 F Pulse Rate 105 H 103 H 108 H Respiratory Rate 26 H 20 20 Blood Pressure 153/88 H 125/65 100/51 L Pulse Oximetry 03/02/18 12:00 03/02/18 13:10 03/02/18 13:13 Temperature 98.6 F Pulse Rate 103 H 94 H 94 H Respiratory Rate 21 20 20 Blood Pressure 141/75 H 148/88 H 148/88 H Pulse Oximetry 100 03/02/18 14:00 03/02/18 14:33 03/02/18 14:34 Temperature 98.6 F 98.6 F Pulse Rate 92 H 88 89 Respiratory Rate 20 20 Blood Pressure 141/78 H 141/78 H Pulse Oximetry 03/02/18 14:37 03/02/18 15:12 03/02/18 15:27 Temperature 98.6 F 98.6 F Pulse Rate 90 84 83 Respiratory Rate 20 20 20 Blood Pressure 140/80 129/71 Pulse Oximetry 100 03/02/18 16:00 03/02/18 18:00 03/02/18 20:13 Temperature 98.7 F Pulse Rate 82 81 81 Respiratory Rate 20 20 Blood Pressure 118/64 Pulse Oximetry 100 100 Intake & Output 03/02/18 03/02/18 03/03/18 06:59 18:59 05:59 Intake Total 4050 / 4050 08725.0 / 04472.0 Output Total 3200 / 3200 1100 / 1100 Balance 850 / 850 9142.0 / 9142.0 Weight 102.8 kg Intake: IV 50 / 50 1351.0 / 1351.0 Versed Inj 50 mg In 50 ml @ 2 50 / 50 100 / 100 MG/HR 2 mls/hr IV.CONT TITRATE PRN Rx#:[id number] SandoSTATIN Inj 500 MCG In NS 1001.0 / 1001.0 Inj 500 ML @ 50 MCG/HR 50.05 mls/hr IV.CONT .Q10H NAVID Rx#: [id number] fentaNYL 10 mcg/mL Premix Drip 250 / 250 2,500 mcg In 250 ml @ 50 MCG/HR 5 mls/hr IV.SIG TITRATE PRN Rx #:[id number] Oral 0 / 0 Intake (Blood Product) Amt 4000 / 4000 8891 / 8891 Plasma Thawed 5 Day Acda Unit 0 / 0 214 / 214 [id number] Plasma Thawed 5 Day Cp2d Unit 382 / 382 [id number] Plasma Thawed 5 Day Cp2d Unit 0 / 0 315 / 315 [id number] Plasma Thawed 5 Day Cp2d Unit 0 / 0 [id number] Plasma Thawed 5 Day Cp2d Unit 328 / 328 [id number] Plasma Thawed 5 Day Cp2d Unit 0 / 0 317 / 317 [id number] Plasma Thawed 5 Day Cp2d Unit 319 / 319 [id number] Plasma Thawed 5 Day Cp2d Unit 0 / 0 335 / 335 [id number] Plt Pheresis B Leukored Pas 188 / 188 Unit [id number] Plt Pheresis B Leukoreduced 0 / 0 206 / 206 Unit [id number] Plt Pheresis B Leukoreduced 0 / 0 196 / 196 Unit [id number] Plt Pheresis B Leukoreduced 278 / 278 Unit [id number] Plt Pheresis S Leukoreduced 0 / 0 325 / 325 Unit [id number] Pre-Pooled Cryo Thawed 10units 0 / 0 226 / 226 Unit [id number] Pre-Pooled Cryo Thawed 10units 0 / 0 229 / 229 Unit [id number] Pre-Pooled Cryo Thawed 10units 233 / 233 Unit [id number] Rbc As-3 Leukoreduced Unit 0 / 0 400 / 400 [id number] Rbc As-3 Leukoreduced Unit 400 / 400 [id number] Rbc As-3 Leukoreduced Unit 400 / 400 [id number] Rbc As-3 Leukoreduced Unit 0 / 0 400 / 400 [id number] Rbc As-3 Leukoreduced Unit 400 / 400 [id number] Rbc As-3 Leukoreduced Unit 400 / 400 [id number] Rbc As-3 Leukoreduced Unit 400 / 400 [id number] Rbc As-3 Leukoreduced Unit 400 / 400 [id number] Rbc As-3 Leukoreduced Unit 400 / 400 [id number] Rbc As-3 Leukoreduced Unit 400 / 400 [id number] Rbc As-3 Leukoreduced Unit 0 / 0 400 / 400 [id number] Rbc As-3 Leukoreduced Unit 400 / 400 [id number] Rbc As-3 Leukoreduced Unit 0 / 0 400 / 400 [id number] Rbc As-3 Leukoreduced Unit 0 / 0 400 / 400 [id number] Rbc As-3 Leukoreduced Unit 400 / 400 [id number] Rbc As-3 Leukoreduced Unit 400 / 400 [id number] Rbc As-3 Leukoreduced Unit 400 / 400 [id number] Rbc As-3 Leukoreduced Unit 400 / 400 [id number] Rbc As-3 Leukoreduced Unit 400 / 400 [id number] Rbc As-3 Leukoreduced Unit 0 / 0 400 / 400 [id number] Rbc As-3 Leukoreduced Unit 400 / 400 [id number] Rbc As-3 Leukoreduced Unit 400 / 400 [id number] Output: Emesis 1400 / 1400 Urine Amount (Catheter) 1000 / 1000 750 / 750 Indwelling Urethral Catheter 1000 / 1000 750 / 750 Gastric Drainage 800 / 800 350 / 350 Oral Orogastric Tube 800 / 800 350 / 350 Other: Weight On Admission 102.8 kg - Urinary Catheter Management Indwelling Urethral Catheter Cath placed during this visit: no Results - Labs CBC & Chem 7: 03/02/18 18:40 03/02/18 18:40 Laboratory Results - last 24 hr 03/01/18 03/01/18 03/01/18 21:37 21:45 21:45 WBC 14.9 H RBC 2.01 L Hgb 5.3 L* Hct 17.1 L* MCV 85.2 MCH 26.4 L MCHC 31.0 L RDW 19.7 H Plt Count 148 L D MPV 8.3 Prelim Diff (Auto) Slide review pending Neut % (Auto) 83.2 H Lymph % (Auto) 10.4 [place] % (Auto) 6.0 Eos % (Auto) 0.2 Baso % (Auto) 0.2 Neut # (Auto) 12.4 H Lymph # (Auto) 1.5 [place] # (Auto) 0.9 Eos # (Auto) 0.0 Baso # (Auto) 0.0 WBC Differential Manual diff final Seg Neuts % (Manual) 75 H Band Neuts % (Manual) 7 H Lymphocytes % (Manual) 12 Monocytes % (Manual) 6 Abs Neuts (Manual) 12.2 H Differential Comment . Platelet Estimate Low L Platelet Morphology Normal Ovalocytes 1+ H PT 16.4 H INR 1.6 APTT 27.1 Fibrinogen Puncture Site Patient Temperature O2 Saturation ABG pH ABG pCO2 ABG pO2 ABG HCO3 ABG O2 Content ABG Base Excess ABG Methemoglobin Eric Test Hemoglobin Carboxyhemoglobin O2 Delivery Device Vent Setting Inspired O2 Critical Value Sodium Potassium Chloride Carbon Dioxide Anion Gap BUN Creatinine Estimated GFR POC Glucose Random Glucose Lactic Acid Calcium Prot Corrected Calcium Phosphorus Magnesium Total Bilirubin AST ALT Alkaline Phosphatase Ammonia Troponin I Total Protein Albumin Lipase Nasal Screen MRSA (PCR) Blood Type A Negative Blood Type Recheck Not needed Antibody Screen Negative MTS Gel Crossmatch See Detail Blood Bank Comment Bld Prod Order Comment 03/01/18 03/01/18 03/01/18 21:45 21:45 21:45 WBC RBC Hgb Hct MCV MCH MCHC RDW Plt Count MPV Prelim Diff (Auto) Neut % (Auto) Lymph % (Auto) [place] % (Auto) Eos % (Auto) Baso % (Auto) Neut # (Auto) Lymph # (Auto) [place] # (Auto) Eos # (Auto) Baso # (Auto) WBC Differential Seg Neuts % (Manual) Band Neuts % (Manual) Lymphocytes % (Manual) Monocytes % (Manual) Abs Neuts (Manual) Differential Comment Platelet Estimate Platelet Morphology Ovalocytes PT INR APTT Fibrinogen Puncture Site Patient Temperature O2 Saturation ABG pH ABG pCO2 ABG pO2 ABG HCO3 ABG O2 Content ABG Base Excess ABG Methemoglobin Eric Test Hemoglobin Carboxyhemoglobin O2 Delivery Device Vent Setting Inspired O2 Critical Value Sodium 143 Potassium 3.8 Chloride 109 H Carbon Dioxide 23.2 Anion Gap 11 BUN 8 Creatinine 0.80 Estimated GFR Greater than 89 POC Glucose Random Glucose 139 H Lactic Acid 5.2 H* Calcium 6.4 L* Prot Corrected Calcium 7.8 L Phosphorus Magnesium Total Bilirubin 0.8 AST 25 ALT 15 Alkaline Phosphatase 83 Ammonia 62 H Troponin I Total Protein 4.4 L D Albumin 1.6 L Lipase 74 Nasal Screen MRSA (PCR) Blood Type Blood Type Recheck Antibody Screen MTS Gel Crossmatch Blood Bank Comment Bld Prod Order Comment 03/01/18 03/02/18 03/02/18 23:35 00:26 01:00 WBC RBC Hgb Hct MCV MCH MCHC RDW Plt Count MPV Prelim Diff (Auto) Neut % (Auto) Lymph % (Auto) [place] % (Auto) Eos % (Auto) Baso % (Auto) Neut # (Auto) Lymph # (Auto) [place] # (Auto) Eos # (Auto) Baso # (Auto) WBC Differential Seg Neuts % (Manual) Band Neuts % (Manual) Lymphocytes % (Manual) Monocytes % (Manual) Abs Neuts (Manual) Differential Comment Platelet Estimate Platelet Morphology Ovalocytes PT INR APTT Fibrinogen Puncture Site Right radial Or abg Patient Temperature 98.6 98.6 O2 Saturation 98 97 ABG pH 7.20 L* 7.15 L* ABG pCO2 33 L 44 H ABG pO2 331 H 397 H ABG HCO3 12 L* 15 L* ABG O2 Content 10.3 L 11.0 L ABG Base Excess -14.3 L -12.5 L ABG Methemoglobin 0.6 1.6 Eric Test Present Hemoglobin 6.8 L* 7.3 L* Carboxyhemoglobin 1.2 0.7 O2 Delivery Device Ventilator Or abg Vent Setting Prvc / ac / Or abg Inspired O2 100 50 Critical Value Yes Yes Sodium Potassium Chloride Carbon Dioxide Anion Gap BUN Creatinine Estimated GFR POC Glucose Random Glucose Lactic Acid Calcium Prot Corrected Calcium Phosphorus Magnesium Total Bilirubin AST ALT Alkaline Phosphatase Ammonia Troponin I Total Protein Albumin Lipase Nasal Screen MRSA (PCR) Blood Type Blood Type Recheck Antibody Screen MTS Gel Crossmatch See Detail Blood Bank Comment Bld Prod Order Comment 03/02/18 03/02/18 03/02/18 01:03 01:03 01:03 WBC 18.4 H RBC 2.27 L Hgb 6.7 L* Hct 20.3 L* MCV 89.6 D MCH 29.7 MCHC 33.1 RDW 14.6 D Plt Count 38 L D MPV 8.5 Prelim Diff (Auto) Neut % (Auto) Lymph % (Auto) [place] % (Auto) Eos % (Auto) Baso % (Auto) Neut # (Auto) Lymph # (Auto) [place] # (Auto) Eos # (Auto) Baso # (Auto) WBC Differential Seg Neuts % (Manual) Band Neuts % (Manual) Lymphocytes % (Manual) Monocytes % (Manual) Abs Neuts (Manual) Differential Comment Platelet Estimate Platelet Morphology Ovalocytes PT Greater than 180.0 H D INR Greater than 18.2 H* APTT Greater than 277.5 H* Fibrinogen Less than 50 L* Puncture Site Patient Temperature O2 Saturation ABG pH ABG pCO2 ABG pO2 ABG HCO3 ABG O2 Content ABG Base Excess ABG Methemoglobin Eric Test Hemoglobin Carboxyhemoglobin O2 Delivery Device Vent Setting Inspired O2 Critical Value Sodium 146 H Potassium 4.3 Chloride 112 H Carbon Dioxide 18.2 L Anion Gap 16 H BUN 8 Creatinine 0.90 Estimated GFR Greater than 89 POC Glucose Random Glucose 74 Lactic Acid Calcium 5.7 L* Prot Corrected Calcium 8.5 Phosphorus Magnesium Total Bilirubin AST ALT Alkaline Phosphatase Ammonia Troponin I Total Protein 1.9 L D Albumin Lipase Nasal Screen MRSA (PCR) Blood Type Blood Type Recheck Antibody Screen MTS Gel Crossmatch Blood Bank Comment Bld Prod Order Comment 03/02/18 03/02/18 03/02/18 01:30 01:44 02:14 WBC RBC Hgb Hct MCV MCH MCHC RDW Plt Count MPV Prelim Diff (Auto) Neut % (Auto) Lymph % (Auto) [place] % (Auto) Eos % (Auto) Baso % (Auto) Neut # (Auto) Lymph # (Auto) [place] # (Auto) Eos # (Auto) Baso # (Auto) WBC Differential Seg Neuts % (Manual) Band Neuts % (Manual) Lymphocytes % (Manual) Monocytes % (Manual) Abs Neuts (Manual) Differential Comment Platelet Estimate Platelet Morphology Ovalocytes PT INR APTT Fibrinogen Puncture Site Or abg Patient Temperature 98.6 O2 Saturation 97 ABG pH 7.29 L* ABG pCO2 44 H ABG pO2 421 H ABG HCO3 20 L ABG O2 Content 8.8 L ABG Base Excess -5.3 L ABG Methemoglobin 1.7 Eric Test Hemoglobin 5.6 L* Carboxyhemoglobin 1.0 O2 Delivery Device Or abg Vent Setting Or abg Inspired O2 100 Critical Value Yes Sodium Potassium Chloride Carbon Dioxide Anion Gap BUN Creatinine Estimated GFR POC Glucose Random Glucose Lactic Acid Calcium Prot Corrected Calcium Phosphorus Magnesium Total Bilirubin AST ALT Alkaline Phosphatase Ammonia Troponin I Total Protein Albumin Lipase Nasal Screen MRSA (PCR) Blood Type Blood Type Recheck Antibody Screen MTS Gel Crossmatch See Detail Blood Bank Comment Bld Prod Order Comment 03/02/18 03/02/18 03/02/18 02:41 03:28 03:49 WBC RBC Hgb Hct MCV MCH MCHC RDW Plt Count MPV Prelim Diff (Auto) Neut % (Auto) Lymph % (Auto) [place] % (Auto) Eos % (Auto) Baso % (Auto) Neut # (Auto) Lymph # (Auto) [place] # (Auto) Eos # (Auto) Baso # (Auto) WBC Differential Seg Neuts % (Manual) Band Neuts % (Manual) Lymphocytes % (Manual) Monocytes % (Manual) Abs Neuts (Manual) Differential Comment Platelet Estimate Platelet Morphology Ovalocytes PT INR APTT Fibrinogen Puncture Site Art line Patient Temperature 98.6 O2 Saturation 96 ABG pH 7.27 L* ABG pCO2 46 H ABG pO2 105 ABG HCO3 20 L ABG O2 Content 9.9 L ABG Base Excess -5.3 L ABG Methemoglobin 1.4 Eric Test Hemoglobin 7.2 L* Carboxyhemoglobin 0.9 O2 Delivery Device Ventilator Vent Setting See comments Inspired O2 60 Critical Value Yes Sodium Potassium Chloride Carbon Dioxide Anion Gap BUN Creatinine Estimated GFR POC Glucose Random Glucose Lactic Acid Calcium Prot Corrected Calcium Phosphorus Magnesium Total Bilirubin AST ALT Alkaline Phosphatase Ammonia Troponin I Total Protein Albumin Lipase Nasal Screen MRSA (PCR) Blood Type Blood Type Recheck Antibody Screen MTS Gel Crossmatch See Detail Blood Bank Comment Bld Prod Order Comment 03/02/18 03/02/18 03/02/18 04:41 06:20 06:20 WBC 9.8 RBC 3.91 L Hgb 11.8 L D Hct 34.7 L MCV 88.7 MCH 30.2 MCHC 34.0 RDW 15.8 Plt Count 77 L D MPV 8.2 Prelim Diff (Auto) Neut % (Auto) Lymph % (Auto) [place] % (Auto) Eos % (Auto) Baso % (Auto) Neut # (Auto) Lymph # (Auto) [place] # (Auto) Eos # (Auto) Baso # (Auto) WBC Differential Seg Neuts % (Manual) Band Neuts % (Manual) Lymphocytes % (Manual) Monocytes % (Manual) Abs Neuts (Manual) Differential Comment Platelet Estimate Platelet Morphology Ovalocytes PT INR APTT Fibrinogen Puncture Site Patient Temperature O2 Saturation ABG pH ABG pCO2 ABG pO2 ABG HCO3 ABG O2 Content ABG Base Excess ABG Methemoglobin Eric Test Hemoglobin Carboxyhemoglobin O2 Delivery Device Vent Setting Inspired O2 Critical Value Sodium 143 Potassium 5.4 H D Chloride 105 Carbon Dioxide 21.9 Anion Gap 16 H BUN 8 Creatinine 1.10 Estimated GFR 78 L POC Glucose Random Glucose 116 H Lactic Acid Calcium 6.3 L* Prot Corrected Calcium 7.6 L Phosphorus 5.8 H Magnesium 1.8 Total Bilirubin 1.9 H AST 499 H ALT 202 H Alkaline Phosphatase 72 Ammonia Troponin I 0.18 H Total Protein 4.5 L D Albumin 2.2 L D Lipase Nasal Screen MRSA (PCR) Blood Type Blood Type Recheck Antibody Screen MTS Gel Crossmatch See Detail Blood Bank Comment Bld Prod Order Comment 03/02/18 03/02/18 03/02/18 06:20 06:20 06:20 WBC RBC Hgb Hct MCV MCH MCHC RDW Plt Count MPV Prelim Diff (Auto) Neut % (Auto) Lymph % (Auto) [place] % (Auto) Eos % (Auto) Baso % (Auto) Neut # (Auto) Lymph # (Auto) [place] # (Auto) Eos # (Auto) Baso # (Auto) WBC Differential Seg Neuts % (Manual) Band Neuts % (Manual) Lymphocytes % (Manual) Monocytes % (Manual) Abs Neuts (Manual) Differential Comment Platelet Estimate Platelet Morphology Ovalocytes PT 13.9 H D INR 1.4 APTT 51.3 H D Fibrinogen 200 L Puncture Site Patient Temperature O2 Saturation ABG pH ABG pCO2 ABG pO2 ABG HCO3 ABG O2 Content ABG Base Excess ABG Methemoglobin Eric Test Hemoglobin Carboxyhemoglobin O2 Delivery Device Vent Setting Inspired O2 Critical Value Sodium Potassium Chloride Carbon Dioxide Anion Gap BUN Creatinine Estimated GFR POC Glucose Random Glucose Lactic Acid 11.1 H* Calcium Prot Corrected Calcium Phosphorus Magnesium Total Bilirubin AST ALT Alkaline Phosphatase Ammonia 29 Troponin I Total Protein Albumin Lipase Nasal Screen MRSA (PCR) Blood Type Blood Type Recheck Antibody Screen MTS Gel Crossmatch Blood Bank Comment Bld Prod Order Comment 03/02/18 03/02/18 03/02/18 06:39 08:00 08:25 WBC RBC Hgb Hct MCV MCH MCHC RDW Plt Count MPV Prelim Diff (Auto) Neut % (Auto) Lymph % (Auto) [place] % (Auto) Eos % (Auto) Baso % (Auto) Neut # (Auto) Lymph # (Auto) [place] # (Auto) Eos # (Auto) Baso # (Auto) WBC Differential Seg Neuts % (Manual) Band Neuts % (Manual) Lymphocytes % (Manual) Monocytes % (Manual) Abs Neuts (Manual) Differential Comment Platelet Estimate Platelet Morphology Ovalocytes PT 17.4 H INR 1.7 APTT 39.6 H D Fibrinogen 179 L Puncture Site Art line Patient Temperature 98.6 O2 Saturation 96 ABG pH 7.30 L ABG pCO2 33 L ABG pO2 138 H ABG HCO3 16 L* ABG O2 Content 15.5 ABG Base Excess -9.3 L ABG Methemoglobin 1.6 Eric Test Hemoglobin 11.3 L Carboxyhemoglobin 0.8 O2 Delivery Device Ventilator Vent Setting Prvc/ac Inspired O2 60 Critical Value Yes Sodium Potassium Chloride Carbon Dioxide Anion Gap BUN Creatinine Estimated GFR POC Glucose Random Glucose Lactic Acid Calcium Prot Corrected Calcium Phosphorus Magnesium Total Bilirubin AST ALT Alkaline Phosphatase Ammonia Troponin I Total Protein Albumin Lipase Nasal Screen MRSA (PCR) Blood Type Blood Type Recheck Antibody Screen [employer] Gel Infermedicatch Blood Bank Comment Bld Prod Order Comment 03/02/18 03/02/18 03/02/18 09:45 09:45 09:45 WBC 8.8 RBC 3.30 L Hgb 10.1 L Hct 27.8 L MCV 84.4 D MCH 30.6 MCHC 36.2 H RDW 15.9 Plt Count 48 L D MPV 7.4 Prelim Diff (Auto) Neut % (Auto) Lymph % (Auto) [place] % (Auto) Eos % (Auto) Baso % (Auto) Neut # (Auto) Lymph # (Auto) [place] # (Auto) Eos # (Auto) Baso # (Auto) WBC Differential Seg Neuts % (Manual) Band Neuts % (Manual) Lymphocytes % (Manual) Monocytes % (Manual) Abs Neuts (Manual) Differential Comment Platelet Estimate Platelet Morphology Ovalocytes PT 18.0 H INR 1.8 APTT Fibrinogen Puncture Site Patient Temperature O2 Saturation ABG pH ABG pCO2 ABG pO2 ABG HCO3 ABG O2 Content ABG Base Excess ABG Methemoglobin Eric Test Hemoglobin Carboxyhemoglobin O2 Delivery Device Vent Setting Inspired O2 Critical Value Sodium Potassium Chloride Carbon Dioxide Anion Gap BUN Creatinine Estimated GFR POC Glucose Random Glucose Lactic Acid 8.0 H* Calcium Prot Corrected Calcium Phosphorus Magnesium Total Bilirubin AST ALT Alkaline Phosphatase Ammonia Troponin I Total Protein Albumin Lipase Nasal Screen MRSA (PCR) Blood Type Blood Type Recheck Antibody Screen [employer] Gel Infermedicatch Blood Bank Comment Bld Prod Order Comment 03/02/18 03/02/18 03/02/18 11:22 11:44 11:50 WBC RBC Hgb Hct MCV MCH MCHC RDW Plt Count MPV Prelim Diff (Auto) Neut % (Auto) Lymph % (Auto) [place] % (Auto) Eos % (Auto) Baso % (Auto) Neut # (Auto) Lymph # (Auto) [place] # (Auto) Eos # (Auto) Baso # (Auto) WBC Differential Seg Neuts % (Manual) Band Neuts % (Manual) Lymphocytes % (Manual) Monocytes % (Manual) Abs Neuts (Manual) Differential Comment Platelet Estimate Platelet Morphology Ovalocytes PT INR APTT Fibrinogen Puncture Site Art line Patient Temperature 98.6 O2 Saturation 93 ABG pH 7.38 ABG pCO2 39 ABG pO2 71 ABG HCO3 23 ABG O2 Content 17.7 ABG Base Excess -1.6 ABG Methemoglobin 1.5 Eric Test Hemoglobin 13.5 Carboxyhemoglobin 1.1 O2 Delivery Device Ventilator Vent Setting [id number] Inspired O2 60 Critical Value No Sodium Potassium Chloride Carbon Dioxide Anion Gap BUN Creatinine Estimated GFR POC Glucose 85 Random Glucose Lactic Acid Calcium Prot Corrected Calcium Phosphorus Magnesium Total Bilirubin AST ALT Alkaline Phosphatase Ammonia Troponin I Total Protein Albumin Lipase Nasal Screen MRSA (PCR) Blood Type Blood Type Recheck Antibody Screen MTS Gel Crossmatch See Detail Blood Bank Comment Bld Prod Order Comment 03/02/18 03/02/18 03/02/18 13:25 13:50 13:50 WBC RBC Hgb Hct MCV MCH MCHC RDW Plt Count MPV Prelim Diff (Auto) Neut % (Auto) Lymph % (Auto) [place] % (Auto) Eos % (Auto) Baso % (Auto) Neut # (Auto) Lymph # (Auto) [place] # (Auto) Eos # (Auto) Baso # (Auto) WBC Differential Seg Neuts % (Manual) Band Neuts % (Manual) Lymphocytes % (Manual) Monocytes % (Manual) Abs Neuts (Manual) Differential Comment Platelet Estimate Platelet Morphology Ovalocytes PT INR APTT Fibrinogen Puncture Site Patient Temperature O2 Saturation ABG pH ABG pCO2 ABG pO2 ABG HCO3 ABG O2 Content ABG Base Excess ABG Methemoglobin Eric Test Hemoglobin Carboxyhemoglobin O2 Delivery Device Vent Setting Inspired O2 Critical Value Sodium Potassium Chloride Carbon Dioxide Anion Gap BUN Creatinine Estimated GFR POC Glucose Random Glucose Lactic Acid 6.3 H* Cancelled 5.9 H* Calcium Prot Corrected Calcium Phosphorus Magnesium Total Bilirubin AST ALT Alkaline Phosphatase Ammonia Troponin I Total Protein Albumin Lipase Nasal Screen MRSA (PCR) Blood Type Blood Type Recheck Antibody Screen MTS Gel Crossmatch Blood Bank Comment Bld Prod Order Comment 03/02/18 03/02/18 03/02/18 13:50 13:50 14:00 WBC 9.7 RBC 4.95 Hgb 14.9 D Hct 41.1 MCV 83.0 MCH 30.1 MCHC 36.2 H RDW 14.5 Plt Count 33 L D MPV 8.0 Prelim Diff (Auto) Neut % (Auto) Lymph % (Auto) [place] % (Auto) Eos % (Auto) Baso % (Auto) Neut # (Auto) Lymph # (Auto) [place] # (Auto) Eos # (Auto) Baso # (Auto) WBC Differential Seg Neuts % (Manual) Band Neuts % (Manual) Lymphocytes % (Manual) Monocytes % (Manual) Abs Neuts (Manual) Differential Comment Platelet Estimate Platelet Morphology Ovalocytes PT 15.1 H INR 1.5 APTT 37.3 H Fibrinogen 171 L Puncture Site Patient Temperature O2 Saturation ABG pH ABG pCO2 ABG pO2 ABG HCO3 ABG O2 Content ABG Base Excess ABG Methemoglobin Eric Test Hemoglobin Carboxyhemoglobin O2 Delivery Device Vent Setting Inspired O2 Critical Value Sodium Potassium Chloride Carbon Dioxide Anion Gap BUN Creatinine Estimated GFR POC Glucose Random Glucose Lactic Acid Calcium Prot Corrected Calcium Phosphorus Magnesium Total Bilirubin AST ALT Alkaline Phosphatase Ammonia Troponin I Total Protein Albumin Lipase Nasal Screen MRSA (PCR) Not detected Blood Type Blood Type Recheck Antibody Screen MTS Gel Crossmatch Blood Bank Comment Bld Prod Order Comment 03/02/18 03/02/18 03/02/18 17:22 18:40 18:40 WBC RBC Hgb Hct MCV MCH MCHC RDW Plt Count MPV Prelim Diff (Auto) Neut % (Auto) Lymph % (Auto) [place] % (Auto) Eos % (Auto) Baso % (Auto) Neut # (Auto) Lymph # (Auto) [place] # (Auto) Eos # (Auto) Baso # (Auto) WBC Differential Seg Neuts % (Manual) Band Neuts % (Manual) Lymphocytes % (Manual) Monocytes % (Manual) Abs Neuts (Manual) Differential Comment Platelet Estimate Platelet Morphology Ovalocytes PT INR APTT Fibrinogen Puncture Site Patient Temperature O2 Saturation ABG pH ABG pCO2 ABG pO2 ABG HCO3 ABG O2 Content ABG Base Excess ABG Methemoglobin Eric Test Hemoglobin Carboxyhemoglobin O2 Delivery Device Vent Setting Inspired O2 Critical Value Sodium 146 H Potassium 3.5 D Chloride 107 Carbon Dioxide 29.1 Anion Gap 10 BUN 13 Creatinine 0.88 Estimated GFR Greater than 89 POC Glucose 77 Random Glucose 75 Lactic Acid 5.5 H* Calcium 6.8 L* Prot Corrected Calcium 7.9 L Phosphorus Magnesium Total Bilirubin 4.7 H AST 407 H ALT 179 H Alkaline Phosphatase 73 Ammonia Troponin I Total Protein 4.9 L Albumin 2.5 L Lipase Nasal Screen MRSA (PCR) Blood Type Blood Type Recheck Antibody Screen MTS Gel Crossmatch Blood Bank Comment Bld Prod Order Comment 03/02/18 18:40 WBC 6.7 RBC 4.22 L Hgb 12.7 L D Hct 34.8 L MCV 82.6 MCH 30.2 MCHC 36.6 H RDW 14.7 Plt Count 30 L MPV 7.9 Prelim Diff (Auto) Neut % (Auto) Lymph % (Auto) [place] % (Auto) Eos % (Auto) Baso % (Auto) Neut # (Auto) Lymph # (Auto) [place] # (Auto) Eos # (Auto) Baso # (Auto) WBC Differential Seg Neuts % (Manual) Band Neuts % (Manual) Lymphocytes % (Manual) Monocytes % (Manual) Abs Neuts (Manual) Differential Comment Platelet Estimate Platelet Morphology Ovalocytes PT INR APTT Fibrinogen Puncture Site Patient Temperature O2 Saturation ABG pH ABG pCO2 ABG pO2 ABG HCO3 ABG O2 Content ABG Base Excess ABG Methemoglobin Eric Test Hemoglobin Carboxyhemoglobin O2 Delivery Device Vent Setting Inspired O2 Critical Value Sodium Potassium Chloride Carbon Dioxide Anion Gap BUN Creatinine Estimated GFR POC Glucose Random Glucose Lactic Acid Calcium Prot Corrected Calcium Phosphorus Magnesium Total Bilirubin AST ALT Alkaline Phosphatase Ammonia Troponin I Total Protein Albumin Lipase Nasal Screen MRSA (PCR) Blood Type Blood Type Recheck Antibody Screen [facility] [facility] Comment Bld Prod Order Comment Microbiology 03/02/18 15:00 Nasal Aspirate Influenza Types A,B Antigen - Final Negative for FLU A and B antigen Infection due to influenza A or B cannot be ruled out since the antigen present in the sample may be below the detection limit of the test. 03/01/18 21:45 Blood - Peripheral Aerobic Blood Culture - Preliminary No growth in 1 day 03/01/18 21:45 Blood - Peripheral Anaerobic Blood Culture - Preliminary No growth in 1 day 03/01/18 21:40 Blood - Peripheral Aerobic Blood Culture - Preliminary No growth in 1 day 03/01/18 21:40 Blood - Peripheral Anaerobic Blood Culture - Preliminary No growth in 1 day - Imaging Impressions Chest X-Ray 03/01/18 00:00 CONCLUSION: Endotracheal tube tip is in the right mainstem bronchus. Retraction by 3 cm would be optimal Chest X-Ray 03/01/18 21:38 CONCLUSION: Minimal basilar atelectasis. No active disease. Chest X-Ray 03/02/18 00:00 CONCLUSION: Endotracheal tube and central line positioning is satisfactory. The Fantasma tube may be too deep. Worsening aeration. Assessment and Plan - Attending Attestation Massive gi bleeding secondary portal hypertension, possible ulcer at the site of previous banding sites Liver cirrhosis secondary hep c etoh liver disease Coagulopathy secondary liver failure Recommendations Supportive care continue blood products administration for correction of coagulopathy repeat egd when coagulopathy corrected hematology consult consider tips/angiogram when coagulopathy corrected cta abdomen/pelvis when stable discussed with mother we will consider defeating Edel tube in am poor prognosis , if no improvement in 1-2 days consider palliative care consult
[2018-03-03 00:04] LABS: Hematocrit 36.2 % (39.0-51.0); Hemoglobin 12.7 gm/dL (13.0-17.0)
[2018-03-03] MEDS: Insulin NovoLIN Regular Correctional Sugar Inj SQ SCH ×4 (01:28→18:40)
[2018-03-03] MEDS: Multivitamin Inj 10 ML, Thiamine Inj 100 MG, Folic Acid Inj 1 MG in Sodium Chlor 0.9% I... IV.SIG SCH ×2 (01:28→23:42)
[2018-03-03] MEDS: Oral Hygiene Kit OROPHARYNG SCH ×4 (01:29→15:30)
[2018-03-03] MEDS: Sod Chloride 0.9% Inj 1,000 ML IV.CONT SCH ×2 (01:29→23:13)
[2018-03-03 01:44] LABS: INR 1.5 Ratio; Prothrombin Time 15.1 sec (9.8-11.6)
[2018-03-03] MEDS ORDERED: Calcium Chloride Inj 2 GM in Dextrose 5% in Water Inj 100 ML IV.SIG ONE ×2 (02:00)
[2018-03-03] MEDS ORDERED: Sodium Chlor 0.9% Inj 250 ML IV.SIG SCH (02:00)
[2018-03-03] MEDS: fentaNYL 10 mcg/mL Premix Drip 2,500 MCG/250 ML BAG IV.SIG PRN ×3 (02:28→23:12)
[2018-03-03] MEDS: Midazolam 50 MG/50 ML Inj 50 MG/50 ML BAG IV.CONT PRN ×5 (02:59→23:43)
[2018-03-03] MEDS: Octreotide Inj 500 MCG in Sodium Chlor 0.9% Inj 500 ML IV.CONT SCH ×3 (04:00→15:30)
[2018-03-03 04:15] LABS: Hemoglobin 12.4 gm/dL (13.0-17.0)
[2018-03-03 04:27] LABS: INR 1.5 Ratio; Prothrombin Time 15.6 sec (9.8-11.6)
--- NOTE | 2018-03-03 06:57 | P.PNCC ---
Subjective Subjective Remarks/Hospital Course: Hospital Course: This is a 33-year-old male. Date of admission 03/01/2018. Past medical includes hepatitis C, known liver cirrhosis, esophageal varices patient was actually admitted 02/14 with upper GI bleed. Patient had 3 columns of 2-3 grade esophageal varices that evaluated Sean with banding.. Patient [facility] to [facility] 03[facility] witha chief complaint of hematemesis. EMS reports that his initial blood pressure on their arrival was in the 70s-80s with a heart rate in the 150s. They state that he has put out copious amounts of hematemesis. Patient states that this began approximately 30 minutes prior to arrival. He does admit to fever and chills as well with abdominal pain. No headache no recent trauma. No chest pain or shortness of breath. Patient was emergently intubated and central line was placed in the femoral region. Hemoglobin is noted to be 5.2. Emergently transfused 3 units PRBCs. GI was consulted to try to perform an upper endoscopy revealed copious amounts of blood in the esophagus. Epinephrine injection was attempted. Fantasma tube was placed. IR was called. Repeat laboratories revealed significant coagulopathy with elevated INR/PTT and low fibrinogen. Unable to do intervention. State they do not tips at this facility. Patient needs to be stabilized prior to any transfer. Remains intubated on low-dose norepinephrine drip. Currently receiving K Centra, FFP and cryoprecipitate. Subjective: 03/02: remains in active hemorrhagic shock. bleeding continues to be uncontrolled. massive transfusion is ongoing. Totals currently: 22 prbc 16 FFP 4 plt 4 Cryo off levophed, but still actively bleeding, suctioning bright red blood from mouth and having bright red bloody bowel movements. Fantasma remains in place. lactate 11. remains acidotic. 03/03: remains intubated. bleeding has appeared to slow, but continues at a slow ooze. hgb now stable. platelets continue to drop in a combination of consumption and splenic sequestration. off vasopressors. likely plan for repeat EGD today. lactate is clearing, albeit slowly. totals: 29 prbc 16 FFP 9 plt 4 cryo 1mg factor 7 2 doses of KCentra 2 doses of Vit K Objective Vital Signs / I&O: Vital Signs 03/02/18 08:00 03/02/18 08:50 03/02/18 09:21 Temperature 36.9 C Pulse Rate 112 H 109 H 112 H Respiratory Rate 38 H 21 22 Blood Pressure 175/106 H 135/73 Pulse Oximetry 100 100 03/02/18 09:23 03/02/18 10:00 03/02/18 10:01 Temperature 36.9 C Pulse Rate 108 H 110 H 111 H Respiratory Rate 21 21 Blood Pressure 138/74 142/93 H Pulse Oximetry 03/02/18 10:34 03/02/18 11:30 03/02/18 11:34 Temperature Pulse Rate 109 H 104 H 105 H Respiratory Rate 21 22 26 H Blood Pressure 142/82 H 153/88 H Pulse Oximetry 100 03/02/18 11:53 03/02/18 11:56 03/02/18 12:00 Temperature 36.9 C 37.0 C Pulse Rate 103 H 108 H 103 H Respiratory Rate 20 20 21 Blood Pressure 125/65 100/51 L 141/75 H Pulse Oximetry 100 03/02/18 13:10 03/02/18 13:13 03/02/18 14:00 Temperature Pulse Rate 94 H 94 H 92 H Respiratory Rate 20 20 Blood Pressure 148/88 H 148/88 H Pulse Oximetry 03/02/18 14:33 03/02/18 14:34 03/02/18 14:37 Temperature 37.0 C 37.0 C 37.0 C Pulse Rate 88 89 90 Respiratory Rate 20 20 20 Blood Pressure 141/78 H 141/78 H 140/80 Pulse Oximetry 03/02/18 15:12 03/02/18 15:27 03/02/18 16:00 Temperature 37.0 C 37.1 C Pulse Rate 84 83 82 Respiratory Rate 20 20 20 Blood Pressure 129/71 118/64 Pulse Oximetry 100 100 03/02/18 18:00 03/02/18 19:00 03/02/18 19:30 Temperature Pulse Rate 81 82 82 Respiratory Rate 20 20 Blood Pressure 126/70 126/65 Pulse Oximetry 95 95 03/02/18 20:00 03/02/18 20:13 03/02/18 20:30 Temperature 36.7 C Pulse Rate 82 81 82 Respiratory Rate 20 20 20 Blood Pressure 124/65 124/64 Pulse Oximetry 95 100 95 03/02/18 21:00 03/02/18 21:30 03/02/18 22:00 Temperature Pulse Rate 81 80 80 Respiratory Rate 20 20 20 Blood Pressure 126/64 127/64 126/67 Pulse Oximetry 96 97 96 03/02/18 22:30 03/02/18 23:00 03/02/18 23:30 Temperature Pulse Rate 79 79 78 Respiratory Rate 20 20 20 Blood Pressure 125/65 124/68 122/66 Pulse Oximetry 96 95 94 L 03/02/18 23:34 03/03/18 00:00 03/03/18 00:30 Temperature Pulse Rate 78 80 80 Respiratory Rate 20 20 20 Blood Pressure 122/64 123/65 Pulse Oximetry 93 L 93 L 03/03/18 01:05 EDT 03/03/18 01:00 EST 03/03/18 01:30 EST Temperature Pulse Rate 80 79 Respiratory Rate 20 20 20 Blood Pressure 123/65 124/64 Pulse Oximetry 94 L 93 L 94 L 03/03/18 02:00 03/03/18 02:18 03/03/18 02:30 Temperature 36.0 C L Pulse Rate 75 74 73 Respiratory Rate 20 20 20 Blood Pressure 122/65 123/71 Pulse Oximetry 93 L 93 L 94 L 03/03/18 02:53 03/03/18 03:00 03/03/18 03:09 Temperature 36.1 C L Pulse Rate 72 71 71 Respiratory Rate 20 20 20 Blood Pressure 129/75 Pulse Oximetry 95 94 L 03/03/18 03:30 03/03/18 04:00 03/03/18 04:25 Temperature 36.4 C Pulse Rate 74 72 Respiratory Rate 20 20 20 Blood Pressure 128/72 128/72 Pulse Oximetry 92 L 92 L 94 L Intake & Output 03/02/18 03/02/18 03/03/18 06:59 18:59 05:59 Intake Total 4050 / 4050 61566.0 / 55596.0 2338.0 / 1834.7 Output Total 3200 / 3200 1100 / 1100 975 Balance 850 / 850 9142.0 / 9142.0 1363.0 / 1834.7 Weight 102.8 kg 106.3 kg Intake: IV 50 / 50 1351.0 / 1351.0 2105.0 / 1601.7 Versed Inj 50 mg In 50 ml @ 2 50 / 50 100 / 100 129.6 / 100 MG/HR 2 mls/hr IV.CONT TITRATE PRN Rx#:[id number] SandoSTATIN Inj 500 MCG In NS 1001.0 / 1001.0 500.5 / 500.5 Inj 500 ML @ 50 MCG/HR 50.05 mls/hr IV.CONT .Q10H [facility] Rx#: [id number] Diprivan 1000 mg/100 ml Inj 1, 100 / 100 000 mg In 100 ml @ 5 MCG/KG/MIN 2.177 mls/hr IV.CONT TITRATE PRN Rx#:[id number] Calcium Chloride Inj 2 GM In 120 / 120 D5W Inj 100 ML @ 120 mls/hr IV. SIG ONCE ONE Rx#:[id number] D10W Inj 1,000 ML @ 30 mls/hr 382 IV.SIG .Q24H [facility] Rx#:[id number] MVI-12 Inj 10 ML Thiamine Inj 511.2 / 511.2 100 MG Folvite Inj 1 MG In NS Inj 500 ML @ 125 mls/hr IV.SIG Q24H [facility] Rx#:[id number] NS Inj 250 ML @ 15 mls/hr IV. 20 / 20 SIG ONCE [facility] Rx#:[id number] fentaNYL 10 mcg/mL Premix Drip 250 / 250 341.7 / 250 2,500 mcg In 250 ml @ 50 MCG/HR 5 mls/hr IV.SIG TITRATE PRN Rx #:[id number] Oral 0 / 0 Intake (Blood Product) Amt 4000 / 4000 8891 / 8891 233 / 233 Plasma Thawed 5 Day Acda Unit 0 / 0 214 / 214 [id number] Plasma Thawed 5 Day Cp2d Unit 382 / 382 [id number] Plasma Thawed 5 Day Cp2d Unit 0 / 0 315 / 315 [id number] Plasma Thawed 5 Day Cp2d Unit 0 / 0 [id number] Plasma Thawed 5 Day Cp2d Unit 328 / 328 [id number] Plasma Thawed 5 Day Cp2d Unit 0 / 0 317 / 317 [id number] Plasma Thawed 5 Day Cp2d Unit 319 / 319 [id number] Plasma Thawed 5 Day Cp2d Unit 0 / 0 335 / 335 [id number] Plt Pheresis B Leukored Pas 188 / 188 Unit [id number] Plt Pheresis B Leukoreduced 0 / 0 206 / 206 Unit [id number] Plt Pheresis B Leukoreduced 0 / 0 196 / 196 Unit [id number] Plt Pheresis B Leukoreduced 278 / 278 Unit [id number] Plt Pheresis S Leukoreduced 0 / 0 325 / 325 Unit [id number] Pre-Pooled Cryo Thawed 10units 0 / 0 226 / 226 Unit [id number] Pre-Pooled Cryo Thawed 10units 0 / 0 229 / 229 Unit [id number] Pre-Pooled Cryo Thawed 10units 233 / 233 Unit [id number] Prepooled Plts Leukoreduced 5d 233 / 233 Unit [id number] Rbc As-3 Leukoreduced Unit 0 / 0 400 / 400 [id number] Rbc As-3 Leukoreduced Unit 400 / 400 [id number] Rbc As-3 Leukoreduced Unit 400 / 400 [id number] Rbc As-3 Leukoreduced Unit 0 / 0 400 / 400 [id number] Rbc As-3 Leukoreduced Unit 400 / 400 [id number] Rbc As-3 Leukoreduced Unit 400 / 400 [id number] Rbc As-3 Leukoreduced Unit 400 / 400 [id number] Rbc As-3 Leukoreduced Unit 400 / 400 [id number] Rbc As-3 Leukoreduced Unit 400 / 400 [id number] Rbc As-3 Leukoreduced Unit 400 / 400 [id number] Rbc As-3 Leukoreduced Unit 0 / 0 400 / 400 [id number] Rbc As-3 Leukoreduced Unit 400 / 400 [id number] Rbc As-3 Leukoreduced Unit 0 / 0 400 / 400 [id number] Rbc As-3 Leukoreduced Unit 0 / 0 400 / 400 [id number] Rbc As-3 Leukoreduced Unit 400 / 400 [id number] Rbc As-3 Leukoreduced Unit 400 / 400 [id number] Rbc As-3 Leukoreduced Unit 400 / 400 [id number] Rbc As-3 Leukoreduced Unit 400 / 400 [id number] Rbc As-3 Leukoreduced Unit 400 / 400 [id number] Rbc As-3 Leukoreduced Unit 0 / 0 400 / 400 [id number] Rbc As-3 Leukoreduced Unit 400 / 400 [id number] Rbc As-3 Leukoreduced Unit 400 / 400 [id number] Output: Emesis 1400 / 1400 Urine Amount (Catheter) 1000 / 1000 750 / 750 625 Indwelling Urethral Catheter 1000 / 1000 750 / 750 625 Gastric Drainage 800 / 800 350 / 350 350 Oral Orogastric Tube 800 / 800 350 / 350 Right Nare 350 Other: Weight On Admission 102.8 kg Result Diagrams: 03/03/18 04:05 03/02/18 18:40 Objective Remarks: GENERAL: Young male, lying in bed, critically ill, intubated, sedated. HEENT: Normocephalic. Atraumatic. Pupils equal, round, reactive, conjugate. Mucous membranes are moist. There is a Fantasma tube in place with a helmet in place. NECK: Trachea is midline. There is no JVD. Right IJ introducer sheath in place , site is clean dry and intact CHEST: PRVC mode. FiO2 40%. Equal chest rise. CARDIOVASCULAR: Tachycardic rate, regular rhythm. Sinus. ABDOMEN: Soft, nontender, distended with a positive fluid wave. No guarding. MUSCULOSKELETAL: Pulses 2+. 1+ peripheral edema. There is a right femoral triple-lumen catheter in place, site is clean dry and intact. NEUROLOGICAL: RASS -3. Withdraws to pain x4. Does not follow commands. 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 He remains very critically ill. Likely plan to repeat EGD today. continue resuscitative efforts. If bleeding controlled, will need to start to mobilize fluid. Off pathway and remains critically ill. Neuro/Psych: Acute toxic metabolic encephalopathy Hepatic encephalopathy Midazolam/fentanyl drips for sedation/analgesia while intubated Goal of RASS -2 Daily sedation vacation ammonia elevated, but no way to administer lactulose at the present time. trend ammonia levels. start lactulose/rifaximin when able. CV: Acute hemorrhagic shock-resolving Lactic acidosis- slowly resolving Norepinephrine to maintain mean arterial pressure greater than equal to 65 mmHg Serial lactates until cleared normal saline to 42 cc/hr Resp: Acute hypoxic and hypercarbic respiratory failure PRVC ventilation Albuterol/ipratropium aerosols every 4 hours with albuterol aerosols every 2 hours as needed dyspnea Ventilator bundle Spontaneous breathing trials and clinically indicated: No SBT while in shock wean fio2 for goal spo2 > 90% GI: Upper GI bleed secondary to esophageal varices Liver cirrhosis Hepatitis C Elevated ammonia Status post upper endoscopy by Dr. Moeller on prior admission. Injected epinephrine. s/p repeat EGD 03/02: with variceal banding. Fantasma tube is in place. Serial hemoglobins as below's likely plan for repeat EGD today. Transfer for TIPS when stable Currently on pantoprazole drip at 8 mg an hour and octreotide drips at 50 mcg/hr trend ammonia. Unable to provide lactulose or rifaximin with Fantasma tube in place/acute bleed : Acute kidney injury Raygoza cath catheter NICKOLAS secondary to hypovolemic shock Endo: Sliding scale insulin Accu-Cheks to maintain euglycemia Renal: Creatinine currently within normal limit Accurate I's and O's Monitor urine output Heme: Acute blood loss anemia Acute coagulopathy leukocytosis Thrombocytopenia DIC totals: 29 prbc 16 FFP 9 plt 4 cryo 1mg factor 7 2 doses of KCentra 2 doses of Vit K keep plt > 50k or 100k if active massive bleeding. serial CBC, coag goal hgb > 8 while active hemorrhage, INR < 1.4, fibrinogen > 150, plt > 100k. ID: ceftriaxone 1 g every 24 hours for upper GI bleed MSK: PT evaluate and treat FEN: Acute hypernatremia Replace electrolytes as clinically indicated Access -Utilize peripheral IV. Maintain right femoral CVL and right IJ sheath. Prophylaxis -GI -pantoprazole drip -DVT -SCD/pharmacological prophylaxis contraindicated with acute bleed This patient remains critically ill with one or more organ systems which are or may become a threat to life. I have spent in excess of 50 minutes discontinuously in the care and management of this patient. This time is exclusive of procedures, and includes, but is not limited to, evaluation of the patient, review of the medical record, discussions with family, consultants, nursing staff, or respiratory therapy, and documentation in the medical record.
[2018-03-03] MEDS: Chlorhexidine Gluconate 2% 1 Pack (2 Cloths) TOPICAL SCH (07:34)
[2018-03-03 07:48] LABS: Alanine Aminotransferase 182 U/L (12-78); Albumin 2.3 g/dL (3.4-5.0); Alkaline Phosphatase 75 U/L (45-117); Anion Gap 7 meq/L (5-15); Aspartate Aminotransferase 343 U/L (15-37); Blood Urea Nitrogen 17 mg/dL (7-18); Calcium 7.2 mg/dL (8.5-10.1); Carbon Dioxide 30.5 meq/L (21.0-32.0); Chloride 109 meq/L (98-107); Glomerular Filtration Rate Greater Than 89 mL/min (>89); Glucose,Random 105 mg/dL (74-106); Potassium 3.1 meq/L (3.5-5.1); Sodium 146 meq/L (136-145); Total Protein 4.8 g/dL (6.4-8.2)
[2018-03-03] MEDS: Chlorhexidine 0.12% Oral Kit 15 ML UDC OROPHARYNG SCH ×2 (07:49→20:29)
[2018-03-03] MEDS: Propofol 1000 mg/100 ml Inj 1,000 MG/100 ML BOTTLE IV.CONT PRN ×2 (07:52→17:19)
--- NOTE | 2018-03-03 08:35 | XR ---
EXAM DATE: 03/03/2018 8:22 AM EST AGE/SEX: 33 years / Male INDICATIONS: SHort of Breath CLINICAL DATA: This is the patient's subsequent encounter. Patient reports that signs and symptoms h ave been present for 3 days and indicates a pain score of Nonresponsive. MEDICAL/SURGICAL HISTORY: . Afib. Hepatitis C. HTN. Liver cirrhosis. Substance abuse None. COMPARISON: C, CHEST 1V SINGLE AP, 03/02/2018. . FINDINGS: Lungs remain hypoaerated with increasing scattered patchy airspace disease. Supportive devices which included an endotracheal tube and large bore nasogastric tube are in stable position. Heart and mediastinal structures are stable. CONCLUSION: Increasing bilateral airspace disease. Hypoaerated lungs Electronically signed by: Kerwin Arias MD 03/03/2018 8:34 AM EST
[2018-03-03] MEDS: Senna/Docusate Sodium 8.6/50 MG Tablet PO SCH ×2 (08:41→20:29)
[2018-03-03] MEDS: Artificial Tears Opth Drops 15 ML Bottle EACH EYE SCH ×3 (08:41→17:55)
[2018-03-03] MEDS: Potassium Chlor 40 mEq Premix 40 MEQ/100 ML PIGGYBACK IV.SIG PRN ×3 (08:44→20:31)
[2018-03-03 11:51] LABS: Hematocrit 35.5 % (39.0-51.0); Hemoglobin 12.6 gm/dL (13.0-17.0)
--- NOTE | 2018-03-03 15:08 | P.PNGI ---
Subjective Interval history: Pt is sedated on a vent, Fantasma in place. Continues to have bleeding from nose, and mild melena. Has received massive transfusion including RBC, FFP, Plts, adn cryoprecipitate . <Prabhakar Ballard - Last Filed: 03/03/18 14:53> Physical Exam Vital signs: Vital Signs 03/02/18 16:00 03/02/18 18:00 03/02/18 19:00 Temperature 98.7 F Pulse Rate 82 81 82 Respiratory Rate 20 20 Blood Pressure 118/64 126/70 Pulse Oximetry 100 95 03/02/18 19:30 03/02/18 20:00 03/02/18 20:13 Temperature 98.1 F Pulse Rate 82 82 81 Respiratory Rate 20 20 20 Blood Pressure 126/65 124/65 Pulse Oximetry 95 95 100 03/02/18 20:30 03/02/18 21:00 03/02/18 21:30 Temperature Pulse Rate 82 81 80 Respiratory Rate 20 20 20 Blood Pressure 124/64 126/64 127/64 Pulse Oximetry 95 96 97 03/02/18 22:00 03/02/18 22:30 03/02/18 23:00 Temperature Pulse Rate 80 79 79 Respiratory Rate 20 20 20 Blood Pressure 126/67 125/65 124/68 Pulse Oximetry 96 96 95 03/02/18 23:30 03/02/18 23:34 03/03/18 00:00 Temperature Pulse Rate 78 78 80 Respiratory Rate 20 20 20 Blood Pressure 122/66 122/64 Pulse Oximetry 94 L 93 L 03/03/18 00:30 03/03/18 01:05 EDT 03/03/18 01:00 EST Temperature Pulse Rate 80 80 Respiratory Rate 20 20 20 Blood Pressure 123/65 123/65 Pulse Oximetry 93 L 94 L 93 L 03/03/18 01:30 EST 03/03/18 02:00 03/03/18 02:18 Temperature 96.8 F L Pulse Rate 79 75 74 Respiratory Rate 20 20 20 Blood Pressure 124/64 122/65 Pulse Oximetry 94 L 93 L 93 L 03/03/18 02:30 03/03/18 02:53 03/03/18 03:00 Temperature 96.9 F L Pulse Rate 73 72 71 Respiratory Rate 20 20 20 Blood Pressure 123/71 129/75 Pulse Oximetry 94 L 95 94 L 03/03/18 03:09 03/03/18 03:30 03/03/18 04:00 Temperature 97.6 F Pulse Rate 71 74 72 Respiratory Rate 20 20 20 Blood Pressure 128/72 128/72 Pulse Oximetry 92 L 92 L 03/03/18 04:25 03/03/18 04:30 03/03/18 05:00 Temperature Pulse Rate 72 71 Respiratory Rate 20 20 20 Blood Pressure 127/72 126/71 Pulse Oximetry 94 L 92 L 93 L 03/03/18 05:30 03/03/18 06:00 03/03/18 06:30 Temperature Pulse Rate 70 70 69 Respiratory Rate 20 20 20 Blood Pressure 124/70 128/76 129/77 Pulse Oximetry 93 L 98 95 03/03/18 07:00 03/03/18 07:30 03/03/18 07:57 Temperature Pulse Rate 69 68 Respiratory Rate 20 20 20 Blood Pressure 126/72 124/67 Pulse Oximetry 93 L 92 L 92 L 03/03/18 08:00 03/03/18 08:01 03/03/18 08:30 Temperature 96.5 F L Pulse Rate 68 69 70 Respiratory Rate 20 20 20 Blood Pressure 122/69 121/68 Pulse Oximetry 91 L 91 L 03/03/18 09:00 03/03/18 09:30 03/03/18 10:00 Temperature Pulse Rate 69 69 70 Respiratory Rate 20 20 20 Blood Pressure 125/71 118/67 119/66 Pulse Oximetry 91 L 91 L 91 L 03/03/18 10:30 03/03/18 11:00 03/03/18 11:22 Temperature Pulse Rate 70 70 Respiratory Rate 20 21 20 Blood Pressure 118/66 118/67 Pulse Oximetry 92 L 91 L 92 L 03/03/18 11:25 03/03/18 11:30 03/03/18 12:00 Temperature 97.6 F Pulse Rate 71 71 74 Respiratory Rate 20 20 20 Blood Pressure 118/60 117/59 L Pulse Oximetry 91 L 92 L 03/03/18 12:30 03/03/18 13:00 Temperature Pulse Rate 72 72 Respiratory Rate 20 20 Blood Pressure 119/60 116/58 L Pulse Oximetry 92 L 92 L Intake & Output 03/02/18 03/03/18 03/03/18 19:59 06:59 18:59 Intake Total 428.7 / 428.7 Output Total Balance 428.7 / 428.7 Weight Intake: IV 428.7 / 428.7 Versed Inj 50 mg In 50 ml @ 2 70.4 / 70.4 MG/HR 2 mls/hr IV.CONT TITRATE PRN Rx#:[id number] SandoSTATIN Inj 500 MCG In NS Inj 500 ML @ 50 MCG/HR 50.05 mls/hr IV.CONT .Q10H [facility] Rx#: [id number] Diprivan 1000 mg/100 ml Inj 1, 100 / 100 000 mg In 100 ml @ 5 MCG/KG/MIN 2.177 mls/hr IV.CONT TITRATE PRN Rx#:[id number] Calcium Chloride Inj 2 GM In D5W Inj 100 ML @ 120 mls/hr IV. SIG ONCE ONE Rx#:[id number] D10W Inj 1,000 ML @ 30 mls/hr IV.SIG .Q24H [facility] Rx#:[id number] MVI-12 Inj 10 ML Thiamine Inj 100 MG Folvite Inj 1 MG In NS Inj 500 ML @ 125 mls/hr IV.SIG Q24H [facility] Rx#:[id number] KCl 40 mEq Premix Inj 40 meq In 100 / 100 100 ml @ 25 mls/hr IV.SIG Q2H PRN Rx#:[id number] NS Inj 250 ML @ 15 mls/hr IV. SIG ONCE [facility] Rx#:[id number] fentaNYL 10 mcg/mL Premix Drip 158.3 / 158.3 2,500 mcg In 250 ml @ 50 MCG/HR 5 mls/hr IV.SIG TITRATE PRN Rx #:[id number] Oral Intake (Blood Product) Amt Plasma Thawed 5 Day Acda Unit [id number] Plasma Thawed 5 Day Cp2d Unit [id number] Plasma Thawed 5 Day Cp2d Unit [id number] Plasma Thawed 5 Day Cp2d Unit [id number] Plasma Thawed 5 Day Cp2d Unit [id number] Plasma Thawed 5 Day Cp2d Unit [id number] Plasma Thawed 5 Day Cp2d Unit [id number] Plasma Thawed 5 Day Cp2d Unit [id number] Plt Pheresis B Leukored Pas Unit [id number] Plt Pheresis B Leukoreduced Unit [id number] Plt Pheresis B Leukoreduced Unit [id number] Plt Pheresis B Leukoreduced Unit [id number] Plt Pheresis S Leukoreduced Unit [id number] Pre-Pooled Cryo Thawed 10units Unit [id number] Pre-Pooled Cryo Thawed 10units Unit [id number] Pre-Pooled Cryo Thawed 10units Unit [id number] Prepooled Plts Leukoreduced 5d Unit [id number] Rbc As-3 Leukoreduced Unit [id number] Rbc As-3 Leukoreduced Unit [id number] Rbc As-3 Leukoreduced Unit [id number] Rbc As-3 Leukoreduced Unit [id number] Rbc As-3 Leukoreduced Unit [id number] Rbc As-3 Leukoreduced Unit [id number] Rbc As-3 Leukoreduced Unit [id number] Rbc As-3 Leukoreduced Unit [id number] Rbc As-3 Leukoreduced Unit [id number] Rbc As-3 Leukoreduced Unit [id number] Rbc As-3 Leukoreduced Unit [id number] Rbc As-3 Leukoreduced Unit [id number] Output: Urine Amount (Catheter) Indwelling Urethral Catheter Gastric Drainage Oral Orogastric Tube Right Nare Other: Date of Last Bowel Movement 03/03/18 - Constitutional chronically ill appearing - Routine HEENT Exam Comments: There is a Fantasma tube in place with a helmet in place. - Routine Respiratory Exam Present: patient mechanically ventilated - Routine Cardiovascular Exam Present: tachycardia, irregular rhythm - Routine Abdominal Exam Present: soft, normoactive bowel sounds, distended - Routine Extremities Exam Present: edema - Routine Skin Exam Present: intact, dry - Routine Neurological Exam Sedated on the vent - Urinary Catheter Management Indwelling Urethral Catheter Cath placed during this visit: no <Prabhakar Ballard - Last Filed: 03/03/18 14:53> Vital signs: Vital Signs 03/02/18 21:00 03/02/18 21:30 03/02/18 22:00 Temperature Pulse Rate 81 80 80 Respiratory Rate 20 20 20 Blood Pressure 126/64 127/64 126/67 Pulse Oximetry 96 97 96 03/02/18 22:30 03/02/18 23:00 03/02/18 23:30 Temperature Pulse Rate 79 79 78 Respiratory Rate 20 20 20 Blood Pressure 125/65 124/68 122/66 Pulse Oximetry 96 95 94 L 03/02/18 23:34 03/03/18 00:00 03/03/18 00:30 Temperature Pulse Rate 78 80 80 Respiratory Rate 20 20 20 Blood Pressure 122/64 123/65 Pulse Oximetry 93 L 93 L 03/03/18 01:05 EDT 03/03/18 01:00 EST 03/03/18 01:30 EST Temperature Pulse Rate 80 79 Respiratory Rate 20 20 20 Blood Pressure 123/65 124/64 Pulse Oximetry 94 L 93 L 94 L 03/03/18 02:00 03/03/18 02:18 03/03/18 02:30 Temperature 96.8 F L Pulse Rate 75 74 73 Respiratory Rate 20 20 20 Blood Pressure 122/65 123/71 Pulse Oximetry 93 L 93 L 94 L 03/03/18 02:53 03/03/18 03:00 03/03/18 03:09 Temperature 96.9 F L Pulse Rate 72 71 71 Respiratory Rate 20 20 20 Blood Pressure 129/75 Pulse Oximetry 95 94 L 03/03/18 03:30 03/03/18 04:00 03/03/18 04:25 Temperature 97.6 F Pulse Rate 74 72 Respiratory Rate 20 20 20 Blood Pressure 128/72 128/72 Pulse Oximetry 92 L 92 L 94 L 03/03/18 04:30 03/03/18 05:00 03/03/18 05:30 Temperature Pulse Rate 72 71 70 Respiratory Rate 20 20 20 Blood Pressure 127/72 126/71 124/70 Pulse Oximetry 92 L 93 L 93 L 03/03/18 06:00 03/03/18 06:30 03/03/18 07:00 Temperature Pulse Rate 70 69 69 Respiratory Rate 20 20 20 Blood Pressure 128/76 129/77 126/72 Pulse Oximetry 98 95 93 L 03/03/18 07:30 03/03/18 07:57 03/03/18 08:00 Temperature Pulse Rate 68 68 Respiratory Rate 20 20 20 Blood Pressure 124/67 122/69 Pulse Oximetry 92 L 92 L 91 L 03/03/18 08:01 03/03/18 08:30 03/03/18 09:00 Temperature 96.5 F L Pulse Rate 69 70 69 Respiratory Rate 20 20 20 Blood Pressure 121/68 125/71 Pulse Oximetry 91 L 91 L 03/03/18 09:30 03/03/18 10:00 03/03/18 10:30 Temperature Pulse Rate 69 70 70 Respiratory Rate 20 20 20 Blood Pressure 118/67 119/66 118/66 Pulse Oximetry 91 L 91 L 92 L 03/03/18 11:00 03/03/18 11:22 03/03/18 11:25 Temperature Pulse Rate 70 71 Respiratory Rate 21 20 20 Blood Pressure 118/67 Pulse Oximetry 91 L 92 L 03/03/18 11:30 03/03/18 12:00 03/03/18 12:30 Temperature 97.6 F Pulse Rate 71 74 72 Respiratory Rate 20 20 20 Blood Pressure 118/60 117/59 L 119/60 Pulse Oximetry 91 L 92 L 92 L 03/03/18 13:00 03/03/18 13:30 03/03/18 14:00 Temperature Pulse Rate 72 71 72 Respiratory Rate 20 20 20 Blood Pressure 116/58 L 115/60 114/59 L Pulse Oximetry 92 L 92 L 92 L 03/03/18 14:30 03/03/18 15:00 03/03/18 15:30 Temperature Pulse Rate 71 71 71 Respiratory Rate 20 20 24 Blood Pressure 114/59 L 114/60 113/63 Pulse Oximetry 92 L 92 L 92 L 03/03/18 16:00 03/03/18 16:30 03/03/18 17:00 Temperature Pulse Rate 71 71 71 Respiratory Rate 20 20 20 Blood Pressure 114/59 L 116/59 L 120/62 Pulse Oximetry 92 L 93 L 93 L 03/03/18 17:08 03/03/18 17:30 03/03/18 18:00 Temperature Pulse Rate 71 73 Respiratory Rate 20 20 20 Blood Pressure 119/63 120/67 Pulse Oximetry 93 L 93 L 93 L 03/03/18 18:30 Temperature 98.5 F Pulse Rate 71 Respiratory Rate 20 Blood Pressure 127/79 Pulse Oximetry 100 Intake & Output 03/03/18 03/03/18 03/04/18 06:59 18:59 06:59 Intake Total 2157.6 / 2157.6 Output Total 350 / 350 Balance 1807.6 / 1807.6 Weight Intake: IV 2157.6 / 2157.6 Versed Inj 50 mg In 50 ml @ 2 90.8 / 90.8 MG/HR 2 mls/hr IV.CONT TITRATE PRN Rx#:[id number] SandoSTATIN Inj 500 MCG In NS 500.5 / 500.5 Inj 500 ML @ 50 MCG/HR 50.05 mls/hr IV.CONT .Q10H [facility] Rx#: [id number] Diprivan 1000 mg/100 ml Inj 1, 200 / 200 000 mg In 100 ml @ 5 MCG/KG/MIN 2.177 mls/hr IV.CONT TITRATE PRN Rx#:[id number] Calcium Chloride Inj 2 GM In D5W Inj 100 ML @ 120 mls/hr IV. SIG ONCE ONE Rx#:[id number] D10W Inj 1,000 ML @ 30 mls/hr 618 / 618 IV.SIG .Q24H [facility] Rx#:[id number] MVI-12 Inj 10 ML Thiamine Inj 100 MG Folvite Inj 1 MG In NS Inj 500 ML @ 125 mls/hr IV.SIG Q24H [facility] Rx#:[id number] KCl 40 mEq Premix Inj 40 meq In 200 / 200 100 ml @ 25 mls/hr IV.SIG Q2H [facility]N Rx#:[id number] NS Inj 250 ML @ 15 mls/hr IV. 250 / 250 SIG ONCE [facility] Rx#:[id number] fentaNYL 10 mcg/mL Premix Drip 158.3 / 158.3 2,500 mcg In 250 ml @ 50 MCG/HR 5 mls/hr IV.SIG TITRATE PRN Rx #:[id number] Intake (Blood Product) Amt Prepooled Plts Leukoreduced 5d Unit [id number] Output: Urine Amount (Catheter) 350 / 350 Indwelling Urethral Catheter 350 / 350 Gastric Drainage Right Nare Other: Date of Last Bowel Movement 03/03/18 - Urinary Catheter Management Indwelling Urethral Catheter Cath placed during this visit: no <Lennie Moeller - Last Filed: 03/03/18 19:31> Results - Labs CBC & Chem 7: 03/03/18 11:30 03/03/18 07:10 Laboratory Results - last 24 hr 03/01/18 03/02/18 03/02/18 21:37 00:26 01:44 WBC RBC Hgb Hct MCV MCH MCHC RDW Plt Count MPV PT INR Fibrinogen Sodium Potassium Chloride Carbon Dioxide Anion Gap BUN Creatinine Estimated GFR POC Glucose Random Glucose Lactic Acid Calcium Prot Corrected Calcium Total Bilirubin AST ALT Alkaline Phosphatase Ammonia Total Protein Albumin Nasal Screen MRSA (PCR) Blood Type A Negative Blood Type Recheck Not needed Antibody Screen Negative MTS Gel Crossmatch See Detail See Detail See Detail Blood Bank Comment Bld Prod Order Comment 03/02/18 03/02/18 03/02/18 02:14 14:00 17:22 WBC RBC Hgb Hct MCV MCH MCHC RDW Plt Count MPV PT INR Fibrinogen Sodium Potassium Chloride Carbon Dioxide Anion Gap BUN Creatinine Estimated GFR POC Glucose 77 Random Glucose Lactic Acid Calcium Prot Corrected Calcium Total Bilirubin AST ALT Alkaline Phosphatase Ammonia Total Protein Albumin Nasal Screen MRSA (PCR) Not detected Blood Type Blood Type Recheck Antibody Screen MTS Gel Crossmatch Blood Bank Comment Bld Prod Order Comment 03/02/18 03/02/18 03/02/18 18:40 18:40 18:40 WBC 6.7 RBC 4.22 L Hgb 12.7 L D Hct 34.8 L MCV 82.6 MCH 30.2 MCHC 36.6 H RDW 14.7 Plt Count 30 L MPV 7.9 PT INR Fibrinogen Sodium 146 H Potassium 3.5 D Chloride 107 Carbon Dioxide 29.1 Anion Gap 10 BUN 13 Creatinine 0.88 Estimated GFR Greater than 89 POC Glucose Random Glucose 75 Lactic Acid 5.5 H* Calcium 6.8 L* Prot Corrected Calcium 7.9 L Total Bilirubin 4.7 H AST 407 H ALT 179 H Alkaline Phosphatase 73 Ammonia Total Protein 4.9 L Albumin 2.5 L Nasal Screen MRSA (PCR) Blood Type Blood Type Recheck Antibody Screen MTS Gel Crossmatch Blood Bank Comment Bld Prod Order Comment 03/02/18 03/02/18 03/03/18 21:26 22:40 00:55 WBC RBC Hgb 12.7 L Hct 36.2 L MCV MCH MCHC RDW Plt Count MPV PT 15.1 H INR 1.5 Fibrinogen 186 L Sodium Potassium Chloride Carbon Dioxide Anion Gap BUN Creatinine Estimated GFR POC Glucose Random Glucose Lactic Acid 4.9 H* Calcium Prot Corrected Calcium Total Bilirubin AST ALT Alkaline Phosphatase Ammonia Total Protein Albumin Nasal Screen MRSA (PCR) Blood Type Blood Type Recheck Antibody Screen MTS Gel Crossmatch Blood Bank Comment Bld Prod Order Comment 03/03/18 03/03/18 03/03/18 00:55 01:19 EST 01:23 EST WBC RBC Hgb Hct MCV MCH MCHC RDW Plt Count 41 L D MPV PT INR Fibrinogen Sodium Potassium Chloride Carbon Dioxide Anion Gap BUN Creatinine Estimated GFR POC Glucose 87 Random Glucose Lactic Acid Calcium Prot Corrected Calcium Total Bilirubin AST ALT Alkaline Phosphatase Ammonia Total Protein Albumin Nasal Screen MRSA (PCR) Blood Type Blood Type Recheck Antibody Screen MTS Gel Crossmatch Blood Bank Comment Bld Prod Order Comment 03/03/18 03/03/18 03/03/18 01:26 EST 04:05 04:05 WBC RBC Hgb 12.4 L Hct 35.0 L MCV MCH MCHC RDW Plt Count MPV PT INR Fibrinogen Sodium Potassium Chloride Carbon Dioxide Anion Gap BUN Creatinine Estimated GFR POC Glucose Random Glucose Lactic Acid 3.6 H Calcium Prot Corrected Calcium Total Bilirubin AST ALT Alkaline Phosphatase Ammonia 59 H Total Protein Albumin Nasal Screen MRSA (PCR) Blood Type Blood Type Recheck Antibody Screen MTS Gel [employer] Blood Bank Comment Bld Prod Order Comment 03/03/18 03/03/18 03/03/18 04:05 04:05 04:05 WBC RBC Hgb Hct MCV MCH MCHC RDW Plt Count 52 L MPV PT 15.6 H INR 1.5 Fibrinogen 181 L Sodium Potassium Chloride Carbon Dioxide Anion Gap BUN Creatinine Estimated GFR POC Glucose Random Glucose Lactic Acid 2.5 H Calcium Prot Corrected Calcium Total Bilirubin AST ALT Alkaline Phosphatase Ammonia Total Protein Albumin Nasal Screen MRSA (PCR) Blood Type Blood Type Recheck Antibody Screen MTS Gel [employer] Blood Bank Comment Bld Prod Order Comment 03/03/18 03/03/18 03/03/18 05:29 07:10 11:21 WBC RBC Hgb Hct MCV MCH MCHC RDW Plt Count MPV PT INR Fibrinogen Sodium 146 H Potassium 3.1 L Chloride 109 H Carbon Dioxide 30.5 Anion Gap 7 BUN 17 Creatinine 0.80 Estimated GFR Greater than 89 POC Glucose 112 H 105 Random Glucose 105 Lactic Acid Calcium 7.2 L* Prot Corrected Calcium 8.5 Total Bilirubin 3.2 H AST 343 H ALT 182 H Alkaline Phosphatase 75 Ammonia Total Protein 4.8 L Albumin 2.3 L Nasal Screen MRSA (PCR) Blood Type Blood Type Recheck Antibody Screen MTS Gel Crossmatch Blood Bank Comment Bld Prod Order Comment 03/03/18 03/03/18 11:30 11:30 WBC RBC Hgb 12.6 L Hct 35.5 L MCV MCH MCHC RDW Plt Count MPV PT INR Fibrinogen Sodium Potassium Chloride Carbon Dioxide Anion Gap BUN Creatinine Estimated GFR POC Glucose Random Glucose Lactic Acid 1.8 Calcium Prot Corrected Calcium Total Bilirubin AST ALT Alkaline Phosphatase Ammonia Total Protein Albumin Nasal Screen MRSA (PCR) Blood Type Blood Type Recheck Antibody Screen MTS Gel Crossmatch Blood Bank Comment Bld Prod Order Comment Microbiology 03/02/18 15:00 Sputum - Endotracheal Gram Stain - Final 03/02/18 15:00 Sputum - Endotracheal Sputum Culture - Preliminary Rare growth normal respiratory tyrese at 24 hours 03/01/18 21:45 Blood - Peripheral Aerobic Blood Culture - Preliminary No growth in 2 days 03/01/18 21:45 Blood - Peripheral Anaerobic Blood Culture - Preliminary No growth in 2 days 03/01/18 21:40 Blood - Peripheral Aerobic Blood Culture - Preliminary No growth in 2 days 03/01/18 21:40 Blood - Peripheral Anaerobic Blood Culture - Preliminary No growth in 2 days 03/02/18 15:00 Nasal Aspirate Influenza Types A,B Antigen - Final Negative for FLU A and B antigen Infection due to influenza A or B cannot be ruled out since the antigen present in the sample may be below the detection limit of the test. - Imaging Impressions Chest X-Ray 03/03/18 00:00 CONCLUSION: Increasing bilateral airspace disease. Hypoaerated lungs <Prabhakar Ballard - Last Filed: 03/03/18 14:53> - Labs CBC & Chem 7: 03/03/18 19:00 03/03/18 07:10 Laboratory Results - last 24 hr 03/01/18 03/02/18 03/02/18 21:37 00:26 01:44 Hgb Hct Plt Count PT INR APTT Fibrinogen Sodium Potassium Chloride Carbon Dioxide Anion Gap BUN Creatinine Estimated GFR POC Glucose Random Glucose Lactic Acid Calcium Prot Corrected Calcium Total Bilirubin AST ALT Alkaline Phosphatase Ammonia Lactate Dehydrogenase Total Protein Albumin Blood Type A Negative Blood Type Recheck Not needed Antibody Screen Negative MTS Gel Crossmatch See Detail See Detail See Detail Blood Bank Comment Bld Prod Order Comment 03/02/18 03/02/18 03/02/18 02:14 21:26 22:40 Hgb 12.7 L Hct 36.2 L Plt Count PT INR APTT Fibrinogen Sodium Potassium Chloride Carbon Dioxide Anion Gap BUN Creatinine Estimated GFR POC Glucose Random Glucose Lactic Acid 4.9 H* Calcium Prot Corrected Calcium Total Bilirubin AST ALT Alkaline Phosphatase Ammonia Lactate Dehydrogenase Total Protein Albumin Blood Type Blood Type Recheck Antibody Screen MTS Gel Crossmatch Blood Bank Comment Bld Prod Order Comment 03/03/18 03/03/18 03/03/18 00:55 00:55 01:19 EST Hgb Hct Plt Count 41 L D PT 15.1 H INR 1.5 APTT Fibrinogen 186 L Sodium Potassium Chloride Carbon Dioxide Anion Gap BUN Creatinine Estimated GFR POC Glucose Random Glucose Lactic Acid Calcium Prot Corrected Calcium Total Bilirubin AST ALT Alkaline Phosphatase Ammonia Lactate Dehydrogenase Total Protein Albumin Blood Type Blood Type Recheck Antibody Screen MTS Gel Crossmatch Blood Bank Comment Bld Prod Order Comment 03/03/18 03/03/18 03/03/18 01:23 EST 01:26 EST 04:05 Hgb Hct Plt Count PT INR APTT Fibrinogen Sodium Potassium Chloride Carbon Dioxide Anion Gap BUN Creatinine Estimated GFR POC Glucose 87 Random Glucose Lactic Acid 3.6 H Calcium Prot Corrected Calcium Total Bilirubin AST ALT Alkaline Phosphatase Ammonia 59 H Lactate Dehydrogenase Total Protein Albumin Blood Type Blood Type Recheck Antibody Screen MTS Gel Crossmatch Blood Bank Comment Bld Prod Order Comment 03/03/18 03/03/18 03/03/18 04:05 04:05 04:05 Hgb 12.4 L Hct 35.0 L Plt Count 52 L PT INR APTT Fibrinogen Sodium Potassium Chloride Carbon Dioxide Anion Gap BUN Creatinine Estimated GFR POC Glucose Random Glucose Lactic Acid 2.5 H Calcium Prot Corrected Calcium Total Bilirubin AST ALT Alkaline Phosphatase Ammonia Lactate Dehydrogenase Total Protein Albumin Blood Type Blood Type Recheck Antibody Screen MTS Gel Crossmatch Blood Bank Comment Bld Prod Order Comment 03/03/18 03/03/18 03/03/18 04:05 05:29 07:10 Hgb Hct Plt Count PT 15.6 H INR 1.5 APTT Fibrinogen 181 L Sodium 146 H Potassium 3.1 L Chloride 109 H Carbon Dioxide 30.5 Anion Gap 7 BUN 17 Creatinine 0.80 Estimated GFR Greater than 89 POC Glucose 112 H Random Glucose 105 Lactic Acid Calcium 7.2 L* Prot Corrected Calcium 8.5 Total Bilirubin 3.2 H AST 343 H ALT 182 H Alkaline Phosphatase 75 Ammonia Lactate Dehydrogenase Total Protein 4.8 L Albumin 2.3 L Blood Type Blood Type Recheck Antibody Screen MTS Gel Crossmatch Blood Bank Comment Bld Prod Order Comment 03/03/18 03/03/18 03/03/18 11:21 11:30 11:30 Hgb 12.6 L Hct 35.5 L Plt Count PT INR APTT Fibrinogen Sodium Potassium Chloride Carbon Dioxide Anion Gap BUN Creatinine Estimated GFR POC Glucose 105 Random Glucose Lactic Acid 1.8 Calcium Prot Corrected Calcium Total Bilirubin AST ALT Alkaline Phosphatase Ammonia Lactate Dehydrogenase Total Protein Albumin Blood Type Blood Type Recheck Antibody Screen [employer] Blood Bank Comment Bld Prod Order Comment 03/03/18 03/03/18 03/03/18 16:40 16:40 18:25 Hgb Hct Plt Count PT 15.0 H INR 1.5 APTT 31.7 Fibrinogen Sodium Potassium Chloride Carbon Dioxide Anion Gap BUN Creatinine Estimated GFR POC Glucose 88 Random Glucose Lactic Acid Calcium Prot Corrected Calcium Total Bilirubin AST ALT Alkaline Phosphatase Ammonia Lactate Dehydrogenase 403 H Total Protein Albumin Blood Type Blood Type Recheck Antibody Screen [employer] Blood Bank Comment Bld Prod Order Comment 03/03/18 19:00 Hgb 13.1 Hct 37.9 L Plt Count PT INR APTT Fibrinogen Sodium Potassium Chloride Carbon Dioxide Anion Gap BUN Creatinine Estimated GFR POC Glucose Random Glucose Lactic Acid Calcium Prot Corrected Calcium Total Bilirubin AST ALT Alkaline Phosphatase Ammonia Lactate Dehydrogenase Total Protein Albumin Blood Type Blood Type Recheck Antibody Screen [employer] Blood Bank Comment Bld Prod Order Comment Microbiology 03/02/18 15:00 Sputum - Endotracheal Gram Stain - Final 03/02/18 15:00 Sputum - Endotracheal Sputum Culture - Preliminary Rare growth normal respiratory tyrese at 24 hours 03/01/18 21:45 Blood - Peripheral Aerobic Blood Culture - Preliminary No growth in 2 days 03/01/18 21:45 Blood - Peripheral Anaerobic Blood Culture - Preliminary No growth in 2 days 03/01/18 21:40 Blood - Peripheral Aerobic Blood Culture - Preliminary No growth in 2 days 03/01/18 21:40 Blood - Peripheral Anaerobic Blood Culture - Preliminary No growth in 2 days - Imaging Impressions Chest X-Ray 03/03/18 00:00 CONCLUSION: Increasing bilateral airspace disease. Hypoaerated lungs <Lennie Moeller - Last Filed: 03/03/18 19:31> Assessment and Plan - Plan - Massive hemorrhagic GI bleed Has received massive transfusion including RBC, FFP, Plts, adn cryoprecipitate . S/P EGD on 03/02/18 1. Large amount of blood in stomach fresh blood in esophagus -arterial looking-could not be washed ulcers from previous banding site seen-possible source of bleeding epinephrine 6 cc -injected large amount of fresh blood Edel tube placed 2. Retroflexed views revealed large amount of blood IR for angiogram consulted stat or possible TIPS, angiogram. Repeat pt/inr, fibrinogen suggested severe coagulopathy, possible DIC. evaluated patient , was decided to hold off on procedures due to sever coagulopathy - Liver cirrhosis secondary to hep-C and alcohol abuse Plan: - NPO - Repeat EGD at some point, will discuss with Dr. Moeller - poor prognosis - Cont. to monitor hh, and transfuse as needed - Cont. PPI Gtt - cont. Octreotide drip - Supportive care - Pt seen and examined by Dr. Moeller and myself and this note is written on her behalf. <Prabhakar Ballard - Last Filed: 03/03/18 14:53> - Attending Attestation seen, examined agree with above <Lennie Moeller - Last Filed: 03/03/18 19:31>
[2018-03-03 17:28] LABS: Activated Partial Thrombo Time 31.7 sec (23.4-31.7); INR 1.5 Ratio
--- NOTE | 2018-03-03 17:48 | MB ---
cc: Katy Forrester MD,Lennie Figueroa MD DATE: 03/03/2018 REFERRING PHYSICIAN: Lennie Moeller MD CHIEF COMPLAINT: Dr. Moeller requests a consultation for Mr. Bonilla regarding coagulopathy secondary to underlying liver disease. HISTORY OF PRESENT ILLNESS: Mr. Bonilla is a 33-year-old man with liver cirrhosis, hepatitis C, alcohol abuse. He came in with massive GI bleed. He had a band ligation previously. He was hypotensive, vomiting fresh blood. He underwent emergent endoscopy and was intubated. He was transfused 3 units of packed red cells. He had a significant coagulopathy. On admission, his PT was 13.9 seconds. His PTT was 51.3 seconds and fibrinogen 200. He was intubated, sedated, and brought in to the ICU. He was cared for by the category planner. He had a central line placed in the femoral area. He had a Fantasma tube placed. He received FFP, cryoprecipitate, and Kcentra. Hematology/Oncology is consulted for the coagulopathy. No history could be obtained from the patient. He is intubated, sedated. His mother supplemented his history along with a stepsister and friend/cousin at bedside. At the time of the consultation, he had been transfused a massive amount of blood, 39 units of packed red cells, 16 units of FFP. He was transfused 33 units of packed red cells, 16 units of plasma, 7 units of platelets, 15 units of plasma, 9 units of platelets, and 4 units of cryoprecipitate 10 pack. Laboratory evaluation this morning shows a PT of 15.6 seconds, fibrinogen of 181. He does not appear to be actively bleeding at present. His hemoglobin was 12.4 and repeat at noon was 12.6. Platelet count was 52,000. PAST MEDICAL HISTORY: Alcohol abuse, hepatitis C, liver cirrhosis, ascites, thrombocytopenia, coagulopathy, upper GI bleed, hypertension, substance abuse. PAST SURGICAL HISTORY: Endoscopy, esophageal banding. FAMILY HISTORY: No significant family history of bleeding disorder. 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 He is a regular smoker. He denies any alcohol use at present. He has a past history of substance abuse. ALLERGIES: CODEINE AND PHENYTOIN. CURRENT MEDICATIONS: Milk of magnesia, DuoNebs, Artificial Tears, ceftriaxone, chlorhexidine, fentanyl, Versed, multivitamin, Levophed, octreotide, potassium chloride, propofol, sodium chloride. PHYSICAL EXAMINATION: VITAL SIGNS: Temperature 97.6, blood pressure 116/58, saturation 92%. GENERAL: Mr. Bonilla is a well-developed, well-nourished young man. HEENT: His pupils are small and reactive. Helmet is in place, a Fantasma tube in the right nostril. Dry crust in both nose. NECK: Supple. Right neck central line with no oozing. LUNGS: Clear anteriorly. CARDIOVASCULAR: Normal rate and rhythm. ABDOMEN: Distended with ascites. EXTREMITIES: There is extensive tattoo work in the right arm, abdomen, and lower extremity. He is sedated and intubated. Good pulses of the lower extremity. LABORATORY DATA: Hemoglobin 12.6, platelet count 52. PT 15.6, fibrinogen 181. Chemistry with a total bilirubin of 3.2, AST 343, ALT 181, alkaline phosphatase is 75. BUN and creatinine are normal. Potassium is 3.1. ASSESSMENT AND PLAN: Mr. Bonilla is a 33-year-old man with alcohol abuse, cirrhosis, and hepatitis C. He comes in with massive upper gastrointestinal bleed secondary to esophageal varices. He is stabilized at this point after multiple blood products. Hematology/oncology is consulted to assist in the coagulopathy. I discussed with mom present during the consultation evaluation from hematology to rule out underlying coagulopathy not related to his liver disease. The baseline PT, PTT, lupus anticoagulant, and inhibitor screen will be performed. In the meantime, vitamin K is optimized. He is offered a trial of Amicar next 24 hours to see if this may assist. He does not appear to be actively bleeding at present. Endoscopy procedure per Dr. Moeller with hemoglobin stable over the last 6 hours. He remains thrombocytopenic. His platelet count remains around 30,000-50,000. I recommend transfusion to keep the platelet count around 50,000. Unlikely that there is another etiology for his bleeding. It appears that GI has controlled it locally. His questions were answered to his satisfaction. Follow up with upper endoscopy tomorrow. Further recommendations pending on the laboratory evaluation. Supportive transfusions continue. MD GHAZAL Pickens/douglas , 04:58 PM , 05:12 PM
[2018-03-03] MEDS: AMINOCAPROIC ACID 250 MG/ML NG/OG SCH ×2 (17:55→19:53)
[2018-03-03] MEDS ORDERED: AMINOCAPROIC ACID 250 MG/ML NG/OG SCH (18:00)
[2018-03-03] MEDS: Phytonadione Inj 10 MG/ML Vial SQ SCH (18:39)
[2018-03-03] MEDS: Dextrose 10% in Water Inj 1,000 ML IV.SIG SCH (18:40)
[2018-03-03 19:08] LABS: Hematocrit 37.9 % (39.0-51.0); Hemoglobin 13.1 gm/dL (13.0-17.0)
[2018-03-03 23:21] LABS: Hematocrit 37.2 % (39.0-51.0); Hemoglobin 13.2 gm/dL (13.0-17.0)
[2018-03-04] MEDS: AMINOCAPROIC ACID 250 MG/ML NG/OG SCH ×4 (00:10→17:48)
[2018-03-04] MEDS: Insulin NovoLIN Regular Correctional Sugar Inj SQ SCH ×4 (00:10→17:48)
[2018-03-04] MEDS: Oral Hygiene Kit OROPHARYNG SCH ×3 (00:10→16:13)
--- NOTE | 2018-03-04 00:19 | ECG ---
Date Performed: 03/01/2018 Time Performed: 21:46:50 PTAGE: 33 years EKG: SINUS TACHYCARDIA WITH SHORT ND INTERVAL ABNORMAL RHYTHM ECG PREVIOUS TRACING : 01/02/2018 19.11 Compared to previous tracing, rate has increased DOCTOR: Jp Aguilar Interpretating Date/Time 03/04/2018 00:17:40
[2018-03-04] MEDS: Octreotide Inj 500 MCG in Sodium Chlor 0.9% Inj 500 ML IV.CONT SCH ×4 (00:44→22:08)
[2018-03-04] MEDS: Chlorhexidine Gluconate 2% 1 Pack (2 Cloths) TOPICAL SCH (04:05)
[2018-03-04] MEDS: Propofol 1000 mg/100 ml Inj 1,000 MG/100 ML BOTTLE IV.CONT PRN ×3 (04:06→19:38)
[2018-03-04 05:16] LABS: Hematocrit 39.2 % (39.0-51.0); Hemoglobin 13.4 gm/dL (13.0-17.0)
[2018-03-04] MEDS: Midazolam 50 MG/50 ML Inj 50 MG/50 ML BAG IV.CONT PRN ×4 (06:07→23:31)
[2018-03-04] MEDS: Chlorhexidine 0.12% Oral Kit 15 ML UDC OROPHARYNG SCH ×2 (09:24→19:39)
[2018-03-04] MEDS: Senna/Docusate Sodium 8.6/50 MG Tablet PO SCH ×2 (09:24→21:34)
[2018-03-04] MEDS: Artificial Tears Opth Drops 15 ML Bottle EACH EYE SCH ×3 (09:24→17:48)
[2018-03-04] MEDS: fentaNYL 10 mcg/mL Premix Drip 2,500 MCG/250 ML BAG IV.SIG PRN ×2 (09:25→19:37)
[2018-03-04] MEDS: Phytonadione Inj 10 MG/ML Vial SQ SCH (09:25)
[2018-03-04 11:41] LABS: Baso % (Auto) 0.3 % (0.0-2.0); Eos % (Auto) 0.1 % (0.0-4.0); Hematocrit 38.7 % (39.0-51.0); Lymph # (Auto) 1.4 th/mm3 (1.0-4.8); Lymph % (Auto) 13.9 % (9.0-44.0); Mean Corpuscular HGB Conc 33.7 % (32.0-36.0); Mean Corpuscular Hemoglobin 29.8 pg (27.0-34.0); Mean Corpuscular Volume 88.2 fL (80.0-100.0); Mean Platelet Volume 10.1 fL (7.0-11.0); Mono # (Auto) 0.6 th/mm3 (0.0-0.9); Mono % (Auto) 5.8 % (0.0-8.0); Neut # (Auto) 7.9 th/mm3 (1.8-7.7); Neut % (Auto) 79.9 % (16.0-70.0); Platelet Count 44 th/mm3 (150-450); Red Blood Count 4.38 mil/mm3 (4.50-5.90); Red Cell Distribution Width 15.6 % (11.6-17.2); White Blood Count 9.9 th/mm3 (4.0-11.0)
[2018-03-04 11:51] LABS: INR 1.3 Ratio; Prothrombin Time 13.1 sec (9.8-11.6)
[2018-03-04 12:08] LABS: Alanine Aminotransferase 361 U/L (12-78); Albumin 2.1 g/dL (3.4-5.0); Alkaline Phosphatase 92 U/L (45-117); Anion Gap 5 meq/L (5-15); Aspartate Aminotransferase 528 U/L (15-37); Blood Urea Nitrogen 19 mg/dL (7-18); Calcium 6.8 mg/dL (8.5-10.1); Carbon Dioxide 29.8 meq/L (21.0-32.0); Chloride 110 meq/L (98-107); Glomerular Filtration Rate Greater Than 89 mL/min (>89); Glucose,Random 86 mg/dL (74-106); Potassium 3.9 meq/L (3.5-5.1); Sodium 145 meq/L (136-145); Total Protein 4.8 g/dL (6.4-8.2)
[2018-03-04 12:40] LABS: Lymphocytes 5 % (9-44); Monocytes 5 % (0-8); Platelet Morphology Normal (Normal)
[2018-03-04 12:41] LABS: RBC Morphology Normal (Normal)
[2018-03-04 13:08] LABS: Hematocrit 38.2 % (39.0-51.0); Hemoglobin 12.9 gm/dL (13.0-17.0)
--- NOTE | 2018-03-04 14:20 | P.PNCC ---
Subjective Subjective Remarks/Hospital Course: Hospital Course: This is a 33-year-old male. Date of admission 03/01/2018. Past medical includes hepatitis C, known liver cirrhosis, esophageal varices patient was actually admitted 02/14 with upper GI bleed. Patient had 3 columns of 2-3 grade esophageal varices that evaluated Sean with banding.. Patient presents to [facility] 03/01 witha chief complaint of hematemesis. EMS reports that his initial blood pressure on their arrival was in the 70s-80s with a heart rate in the 150s. They state that he has put out copious amounts of hematemesis. Patient states that this began approximately 30 minutes prior to arrival. He does admit to fever and chills as well with abdominal pain. No headache no recent trauma. No chest pain or shortness of breath. Patient was emergently intubated and central line was placed in the femoral region. Hemoglobin is noted to be 5.2. Emergently transfused 3 units PRBCs. GI was consulted to try to perform an upper endoscopy revealed copious amounts of blood in the esophagus. Epinephrine injection was attempted. Fantasma tube was placed. IR was called. Repeat laboratories revealed significant coagulopathy with elevated INR/PTT and low fibrinogen. Unable to do intervention. State they do not tips at this facility. Patient needs to be stabilized prior to any transfer. Remains intubated on low-dose norepinephrine drip. Currently receiving K Centra, FFP and cryoprecipitate. Subjective: 03/02: remains in active hemorrhagic shock. bleeding continues to be uncontrolled. massive transfusion is ongoing. Totals currently: 22 prbc 16 FFP 4 plt 4 Cryo off levophed, but still actively bleeding, suctioning bright red blood from mouth and having bright red bloody bowel movements. Fantasma remains in place. lactate 11. remains acidotic. 03/03: remains intubated. bleeding has appeared to slow, but continues at a slow ooze. hgb now stable. platelets continue to drop in a combination of consumption and splenic sequestration. off vasopressors. likely plan for repeat EGD today. lactate is clearing, albeit slowly. totals: 29 prbc 16 FFP 9 plt 4 cryo 1mg factor 7 2 doses of KCentra 2 doses of Vit K 03/04: Remains sedated, orally intubated on mechanical ventilation. Fantasma tube remains in place. Objective Vital Signs / I&O: Vital Signs 03/03/18 14:30 03/03/18 15:00 03/03/18 15:30 Temperature Pulse Rate 71 71 71 Respiratory Rate 20 20 24 Blood Pressure 114/59 L 114/60 113/63 Pulse Oximetry 92 L 92 L 92 L 03/03/18 16:00 03/03/18 16:30 03/03/18 17:00 Temperature Pulse Rate 71 71 71 Respiratory Rate 20 20 20 Blood Pressure 114/59 L 116/59 L 120/62 Pulse Oximetry 92 L 93 L 93 L 03/03/18 17:08 03/03/18 17:30 03/03/18 18:00 Temperature Pulse Rate 71 73 Respiratory Rate 20 20 20 Blood Pressure 119/63 120/67 Pulse Oximetry 93 L 93 L 93 L 03/03/18 18:30 03/03/18 19:00 03/03/18 19:30 Temperature 98.5 F 97.6 F Pulse Rate 71 72 72 Respiratory Rate 20 20 20 Blood Pressure 127/79 126/67 126/65 Pulse Oximetry 100 94 L 94 L 03/03/18 19:44 03/03/18 19:48 03/03/18 20:00 Temperature Pulse Rate 72 74 Respiratory Rate 20 20 20 Blood Pressure 124/64 Pulse Oximetry 94 L 93 L 03/03/18 20:30 03/03/18 21:00 03/03/18 21:30 Temperature Pulse Rate 74 74 75 Respiratory Rate 20 20 20 Blood Pressure 126/64 126/65 125/66 Pulse Oximetry 93 L 93 L 93 L 03/03/18 22:00 03/03/18 22:30 03/03/18 23:00 Temperature Pulse Rate 75 75 76 Respiratory Rate 20 20 20 Blood Pressure 124/65 123/68 127/70 Pulse Oximetry 93 L 93 L 94 L 03/03/18 23:30 03/04/18 00:00 03/04/18 00:19 Temperature 99.1 F Pulse Rate 77 77 Respiratory Rate 20 20 20 Blood Pressure 127/68 128/69 Pulse Oximetry 93 L 93 L 93 L 03/04/18 00:21 03/04/18 00:30 03/04/18 01:00 Temperature Pulse Rate 78 79 79 Respiratory Rate 20 20 20 Blood Pressure 129/73 135/73 Pulse Oximetry 93 L 92 L 03/04/18 01:30 03/04/18 02:00 03/04/18 02:30 Temperature Pulse Rate 79 79 79 Respiratory Rate 20 20 20 Blood Pressure 130/72 130/68 127/69 Pulse Oximetry 92 L 92 L 92 L 03/04/18 03:00 03/04/18 03:30 03/04/18 04:00 Temperature 100.1 F H Pulse Rate 79 80 79 Respiratory Rate 20 20 20 Blood Pressure 125/68 127/66 122/67 Pulse Oximetry 92 L 91 L 92 L 03/04/18 04:02 03/04/18 06:00 03/04/18 06:02 Temperature Pulse Rate 79 81 Respiratory Rate 20 Blood Pressure Pulse Oximetry 92 L 93 L 03/04/18 07:32 03/04/18 08:00 03/04/18 10:00 Temperature Pulse Rate 79 82 78 Respiratory Rate 20 Blood Pressure Pulse Oximetry 93 L 03/04/18 11:01 03/04/18 11:02 Temperature Pulse Rate 77 Respiratory Rate 20 20 Blood Pressure Pulse Oximetry 94 L Intake & Output 03/03/18 03/04/18 03/04/18 18:59 06:59 18:59 Intake Total 2157.6 / 2157.6 2861.7 / 2861.7 383.8 / 383.8 Output Total 350 / 350 450 / 450 Balance 1807.6 / 1807.6 2411.7 / 2411.7 383.8 / 383.8 Weight 110.5 kg Intake: IV 2157.6 / 2157.6 2861.7 / 2861.7 383.8 / 383.8 Versed Inj 50 mg In 50 ml @ 2 90.8 / 90.8 100 / 100 50 / 50 MG/HR 2 mls/hr IV.CONT TITRATE PRN Rx#:[id number] SandoSTATIN Inj 500 MCG In NS 500.5 / 500.5 825.5 / 825.5 175.5 / 175.5 Inj 500 ML @ 50 MCG/HR 50.05 mls/hr IV.CONT .Q10H [facility] Rx#: [id number] Diprivan 1000 mg/100 ml Inj 1, 200 / 200 120 / 120 000 mg In 100 ml @ 5 MCG/KG/MIN 2.177 mls/hr IV.CONT TITRATE PRN Rx#:[id number] D10W Inj 1,000 ML @ 30 mls/hr 618 / 618 500 / 500 IV.SIG .Q24H [facility] Rx#:[id number] MVI-12 Inj 10 ML Thiamine Inj 511.2 / 511.2 100 MG Folvite Inj 1 MG In NS Inj 500 ML @ 125 mls/hr IV.SIG Q24H [facility] Rx#:[id number] Levophed-Dextrose 4 mg/250 ml 56 / 56 Drip 4 mg In 250 ml @ 2 MCG/MIN 7.5 mls/hr IV.SIG TITRATE PRN Rx#:[id number] KCl 40 mEq Premix Inj 40 meq In 200 / 200 100 / 100 100 ml @ 25 mls/hr IV.SIG UNSCH PRN Rx#:[id number] NS Inj 250 ML @ 15 mls/hr IV. 250 / 250 20 / 20 SIG ONCE [facility] Rx#:[id number] Rocephin Inj 1,000 MG In NS Inj 200 / 200 100 ML @ 200 mls/hr IV.SIG Q24H [facility] Rx#:[id number] fentaNYL 10 mcg/mL Premix Drip 158.3 / 158.3 429 / 429 158.3 / 158.3 2,500 mcg In 250 ml @ 50 MCG/HR 5 mls/hr IV.SIG TITRATE PRN Rx #:[id number] Output: Urine Amount (Catheter) 350 / 350 450 / 450 Indwelling Urethral Catheter 350 / 350 450 / 450 Other: Date of Last Bowel Movement 03/03/18 03/03/18 03/03/18 # Bowel Movements 0 Result Diagrams: 03/04/18 13:00 03/04/18 11:05 Other Results: Laboratory Results - last 24 hr 03/02/18 03/03/18 03/03/18 11:22 16:40 16:40 WBC RBC Hgb Hct MCV MCH MCHC RDW Plt Count MPV Prelim Diff (Auto) Neut % (Auto) Lymph % (Auto) [place] % (Auto) Eos % (Auto) Baso % (Auto) Neut # (Auto) Lymph # (Auto) [place] # (Auto) Eos # (Auto) Baso # (Auto) WBC Differential Seg Neuts % (Manual) Band Neuts % (Manual) Lymphocytes % (Manual) Monocytes % (Manual) Abs Neuts (Manual) Differential Comment Platelet Estimate Platelet Morphology RBC Morphology Hematology Comments PT 15.0 H INR 1.5 APTT 31.7 PT Normal Plasma Immed PT Normal Plasma 1 Hr PT Pat/Norm 1:4 Immed PT Pat/Norm 1:1 Immed PT Pat/Norm 1:1 1h 37c PT Pat/Norm 4:1 Immed PT Patient Plasma Immed PT Mix Interpretation PTT Normal Plasma Immed PTT Normal Plasma 1 Hr PTT Pat/Norm 1:4 Immed PTT Pat/Norm 1:1 Immed PTT Pat/Norm 1:1 1h 37c PTT Pat/Norm 4:1 Immed PTT Patient Plsma Immed PTT Mix Interpretation Fibrinogen Factor Inhibitor Screen Sodium Potassium Chloride Carbon Dioxide Anion Gap BUN Creatinine Estimated GFR POC Glucose Random Glucose Lactic Acid Calcium Prot Corrected Calcium Total Bilirubin AST ALT Alkaline Phosphatase Lactate Dehydrogenase 403 H Total Protein Albumin Blood Type MTS Gel Crossmatch See Detail 03/03/18 03/03/18 03/03/18 16:40 18:25 19:00 WBC RBC Hgb Hct MCV MCH MCHC RDW Plt Count MPV Prelim Diff (Auto) Neut % (Auto) Lymph % (Auto) [place] % (Auto) Eos % (Auto) Baso % (Auto) Neut # (Auto) Lymph # (Auto) [place] # (Auto) Eos # (Auto) Baso # (Auto) WBC Differential Seg Neuts % (Manual) Band Neuts % (Manual) Lymphocytes % (Manual) Monocytes % (Manual) Abs Neuts (Manual) Differential Comment Platelet Estimate Platelet Morphology RBC Morphology Hematology Comments PT INR APTT PT Normal Plasma Immed 10.2 PT Normal Plasma 1 Hr 10.3 PT Pat/Norm 1:4 Immed 10.5 PT Pat/Norm 1:1 Immed 11.4 PT Pat/Norm 1:1 1h 37c 11.9 H PT Pat/Norm 4:1 Immed 12.7 H PT Patient Plasma Immed 15.0 H PT Mix Interpretation PTT Normal Plasma Immed 26.4 PTT Normal Plasma 1 Hr 27.7 PTT Pat/Norm 1:4 Immed 26.3 PTT Pat/Norm 1:1 Immed 27.0 PTT Pat/Norm 1:1 1h 37c 31.2 PTT Pat/Norm 4:1 Immed 28.9 PTT Patient Plsma Immed 31.7 PTT Mix Interpretation Fibrinogen Factor Inhibitor Screen Sodium Potassium 3.4 L Chloride Carbon Dioxide Anion Gap BUN Creatinine Estimated GFR POC Glucose 88 Random Glucose Lactic Acid Calcium Prot Corrected Calcium Total Bilirubin AST ALT Alkaline Phosphatase Lactate Dehydrogenase Total Protein Albumin Blood Type MTS Gel Crossmatch 03/03/18 03/03/18 03/03/18 19:00 23:00 23:00 WBC RBC Hgb 13.1 13.2 Hct 37.9 L 37.2 L MCV MCH MCHC RDW Plt Count MPV Prelim Diff (Auto) Neut % (Auto) Lymph % (Auto) [place] % (Auto) Eos % (Auto) Baso % (Auto) Neut # (Auto) Lymph # (Auto) [place] # (Auto) Eos # (Auto) Baso # (Auto) WBC Differential Seg Neuts % (Manual) Band Neuts % (Manual) Lymphocytes % (Manual) Monocytes % (Manual) Abs Neuts (Manual) Differential Comment Platelet Estimate Platelet Morphology RBC Morphology Hematology Comments PT INR APTT PT Normal Plasma Immed PT Normal Plasma 1 Hr PT Pat/Norm 1:4 Immed PT Pat/Norm 1:1 Immed PT Pat/Norm 1:1 1h 37c PT Pat/Norm 4:1 Immed PT Patient Plasma Immed PT Mix Interpretation PTT Normal Plasma Immed PTT Normal Plasma 1 Hr PTT Pat/Norm 1:4 Immed PTT Pat/Norm 1:1 Immed PTT Pat/Norm 1:1 1h 37c PTT Pat/Norm 4:1 Immed PTT Patient Plsma Immed PTT Mix Interpretation Fibrinogen Factor Inhibitor Screen Sodium Potassium Chloride Carbon Dioxide Anion Gap BUN Creatinine Estimated GFR POC Glucose Random Glucose Lactic Acid 1.0 Calcium Prot Corrected Calcium Total Bilirubin AST ALT Alkaline Phosphatase Lactate Dehydrogenase Total Protein Albumin Blood Type MTS Gel Crossmatch 03/03/18 03/04/18 03/04/18 23:39 04:40 04:40 WBC RBC Hgb 13.4 Hct 39.2 MCV MCH MCHC RDW Plt Count MPV Prelim Diff (Auto) Neut % (Auto) Lymph % (Auto) [place] % (Auto) Eos % (Auto) Baso % (Auto) Neut # (Auto) Lymph # (Auto) [place] # (Auto) Eos # (Auto) Baso # (Auto) WBC Differential Seg Neuts % (Manual) Band Neuts % (Manual) Lymphocytes % (Manual) Monocytes % (Manual) Abs Neuts (Manual) Differential Comment Platelet Estimate Platelet Morphology RBC Morphology Hematology Comments PT INR APTT 29.9 PT Normal Plasma Immed PT Normal Plasma 1 Hr PT Pat/Norm 1:4 Immed PT Pat/Norm 1:1 Immed PT Pat/Norm 1:1 1h 37c PT Pat/Norm 4:1 Immed PT Patient Plasma Immed PT Mix Interpretation PTT Normal Plasma Immed PTT Normal Plasma 1 Hr PTT Pat/Norm 1:4 Immed PTT Pat/Norm 1:1 Immed PTT Pat/Norm 1:1 1h 37c PTT Pat/Norm 4:1 Immed PTT Patient Plsma Immed PTT Mix Interpretation Fibrinogen Factor Inhibitor Screen Sodium Potassium Chloride Carbon Dioxide Anion Gap BUN Creatinine Estimated GFR POC Glucose 87 Random Glucose Lactic Acid Calcium Prot Corrected Calcium Total Bilirubin AST ALT Alkaline Phosphatase Lactate Dehydrogenase Total Protein Albumin Blood Type MTS Gel Crossmatch 03/04/18 03/04/18 03/04/18 05:21 11:05 11:05 WBC 9.9 RBC 4.38 L Hgb Cancelled 13.0 Hct Cancelled 38.7 L MCV 88.2 D MCH 29.8 MCHC 33.7 RDW 15.6 Plt Count 44 L MPV 10.1 Prelim Diff (Auto) Slide review pending Neut % (Auto) 79.9 H Lymph % (Auto) 13.9 [place] % (Auto) 5.8 Eos % (Auto) 0.1 Baso % (Auto) 0.3 Neut # (Auto) 7.9 H Lymph # (Auto) 1.4 [place] # (Auto) 0.6 Eos # (Auto) 0.0 Baso # (Auto) 0.0 WBC Differential Manual diff final Seg Neuts % (Manual) 64 Band Neuts % (Manual) 26 H Lymphocytes % (Manual) 5 L Monocytes % (Manual) 5 Abs Neuts (Manual) 8.9 H Differential Comment . Platelet Estimate Low L Platelet Morphology Normal RBC Morphology Normal Hematology Comments Cancelled PT INR APTT PT Normal Plasma Immed PT Normal Plasma 1 Hr PT Pat/Norm 1:4 Immed PT Pat/Norm 1:1 Immed PT Pat/Norm 1:1 1h 37c PT Pat/Norm 4:1 Immed PT Patient Plasma Immed PT Mix Interpretation PTT Normal Plasma Immed PTT Normal Plasma 1 Hr PTT Pat/Norm 1:4 Immed PTT Pat/Norm 1:1 Immed PTT Pat/Norm 1:1 1h 37c PTT Pat/Norm 4:1 Immed PTT Patient Plsma Immed PTT Mix Interpretation Fibrinogen Factor Inhibitor Screen Sodium Potassium Chloride Carbon Dioxide Anion Gap BUN Creatinine Estimated GFR POC Glucose 88 Random Glucose Lactic Acid Calcium Prot Corrected Calcium Total Bilirubin AST ALT Alkaline Phosphatase Lactate Dehydrogenase Total Protein Albumin Blood Type MTS Gel Crossmatch 03/04/18 03/04/18 03/04/18 11:05 11:05 13:00 WBC RBC Hgb 12.9 L Hct 38.2 L MCV MCH MCHC RDW Plt Count MPV Prelim Diff (Auto) Neut % (Auto) Lymph % (Auto) [place] % (Auto) Eos % (Auto) Baso % (Auto) Neut # (Auto) Lymph # (Auto) [place] # (Auto) Eos # (Auto) Baso # (Auto) WBC Differential Seg Neuts % (Manual) Band Neuts % (Manual) Lymphocytes % (Manual) Monocytes % (Manual) Abs Neuts (Manual) Differential Comment Platelet Estimate Platelet Morphology RBC Morphology Hematology Comments PT 13.1 H INR 1.3 APTT 30.0 PT Normal Plasma Immed PT Normal Plasma 1 Hr PT Pat/Norm 1:4 Immed PT Pat/Norm 1:1 Immed PT Pat/Norm 1:1 1h 37c PT Pat/Norm 4:1 Immed PT Patient Plasma Immed PT Mix Interpretation PTT Normal Plasma Immed PTT Normal Plasma 1 Hr PTT Pat/Norm 1:4 Immed PTT Pat/Norm 1:1 Immed PTT Pat/Norm 1:1 1h 37c PTT Pat/Norm 4:1 Immed PTT Patient Plsma Immed PTT Mix Interpretation Fibrinogen 213 L Factor Inhibitor Screen Sodium 145 Potassium 3.9 Chloride 110 H Carbon Dioxide 29.8 Anion Gap 5 BUN 19 H Creatinine 0.92 Estimated GFR Greater than 89 POC Glucose Random Glucose 86 Lactic Acid Calcium 6.8 L* Prot Corrected Calcium 8.0 L Total Bilirubin 2.0 H AST 528 H ALT 361 H Alkaline Phosphatase 92 Lactate Dehydrogenase Total Protein 4.8 L Albumin 2.1 L Blood Type MTS Gel Crossmatch 03/04/18 13:31 WBC RBC Hgb Hct MCV MCH MCHC RDW Plt Count MPV Prelim Diff (Auto) Neut % (Auto) Lymph % (Auto) [place] % (Auto) Eos % (Auto) Baso % (Auto) Neut # (Auto) Lymph # (Auto) [place] # (Auto) Eos # (Auto) Baso # (Auto) WBC Differential Seg Neuts % (Manual) Band Neuts % (Manual) Lymphocytes % (Manual) Monocytes % (Manual) Abs Neuts (Manual) Differential Comment Platelet Estimate Platelet Morphology RBC Morphology Hematology Comments PT INR APTT PT Normal Plasma Immed PT Normal Plasma 1 Hr PT Pat/Norm 1:4 Immed PT Pat/Norm 1:1 Immed PT Pat/Norm 1:1 1h 37c PT Pat/Norm 4:1 Immed PT Patient Plasma Immed PT Mix Interpretation PTT Normal Plasma Immed PTT Normal Plasma 1 Hr PTT Pat/Norm 1:4 Immed PTT Pat/Norm 1:1 Immed PTT Pat/Norm 1:1 1h 37c PTT Pat/Norm 4:1 Immed PTT Patient Plsma Immed PTT Mix Interpretation Fibrinogen Factor Inhibitor Screen Sodium Potassium Chloride Carbon Dioxide Anion Gap BUN Creatinine Estimated GFR POC Glucose Random Glucose Lactic Acid Calcium Prot Corrected Calcium Total Bilirubin AST ALT Alkaline Phosphatase Lactate Dehydrogenase Total Protein Albumin Blood Type A Negative MTS Gel Crossmatch See Detail Imaging: Impressions Chest X-Ray 03/03/18 00:00 CONCLUSION: Increasing bilateral airspace disease. Hypoaerated lungs Objective Remarks: GENERAL: Young male, lying in bed, critically ill, intubated, sedated. HEENT: Normocephalic. Atraumatic. Pupils equal, round, reactive, conjugate. Mucous membranes are moist. There is a Fantasma tube in place with a helmet in place. NECK: Trachea is midline. There is no JVD. Right IJ introducer sheath in place , site is clean dry and intact CHEST: PRVC mode. FiO2 40%. Equal chest rise. CARDIOVASCULAR: Tachycardic rate, regular rhythm. Sinus. ABDOMEN: Soft, nontender, distended with a positive fluid wave. No guarding. MUSCULOSKELETAL: Pulses 2+. 1+ peripheral edema. There is a right femoral triple-lumen catheter in place, site is clean dry and intact. NEUROLOGICAL: RASS -3. Withdraws to pain x4. Does not follow commands. 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 He remains very critically ill. Continue resuscitative efforts. If bleeding controlled, will need to start to mobilize fluid. Off pathway and remains critically ill. Neuro/Psych: Acute toxic metabolic encephalopathy Hepatic encephalopathy Midazolam/fentanyl/propofol drips for sedation/analgesia while intubated Goal of RASS -2 Daily sedation vacation ammonia elevated, but no way to administer lactulose at the present time. trend ammonia levels. start lactulose/rifaximin when able. CV: Acute hemorrhagic shock-resolving Lactic acidosis- slowly resolving Norepinephrine to maintain mean arterial pressure greater than equal to 65 mmHg Serial lactates until cleared normal saline to 42 cc/hr Resp: Acute hypoxic and hypercarbic respiratory failure PRVC ventilation Albuterol/ipratropium aerosols every 4 hours with albuterol aerosols every 2 hours as needed dyspnea Ventilator bundle On 100% FiO2, probable TRALI, fluid overload, shunting. Too unstable for weaning trials. GI: Upper GI bleed secondary to esophageal varices Liver cirrhosis Hepatitis C Elevated ammonia Status post upper endoscopy by Dr. Moeller on prior admission. Injected epinephrine. s/p repeat EGD 03/02: with variceal banding. Fantasma tube is in place. Serial hemoglobins as below's Transfer for TIPS when stable Currently on pantoprazole drip at 8 mg an hour and octreotide drips at 50 mcg/hr trend ammonia. Unable to provide lactulose or rifaximin with Fantasma tube in place/acute bleed Large ascites noted, plan US guided paracentesis 03/04 as d/w Dr. Moeller to see if resp status improves. : Acute kidney injury Raygoza cath catheter NICKOLAS secondary to hypovolemic shock Endo: Sliding scale insulin Accu-Cheks to maintain euglycemia Renal: Creatinine currently within normal limit Accurate I's and O's Monitor urine output Heme: Acute blood loss anemia Acute coagulopathy leukocytosis Thrombocytopenia DIC totals: 29 prbc 16 FFP 9 plt 4 cryo 1mg factor 7 2 doses of KCentra 2 doses of Vit K keep plt > 50k or 100k if active massive bleeding. serial CBC, coag goal hgb > 8 while active hemorrhage, INR < 1.4, fibrinogen > 150, plt > 100k. ID: ceftriaxone 1 g every 24 hours for upper GI bleed MSK: PT evaluate and treat FEN: Acute hypernatremia Replace electrolytes as clinically indicated Access -Utilize peripheral IV. Maintain right femoral CVL and right IJ sheath. Prophylaxis -GI -pantoprazole drip -DVT -SCD/pharmacological prophylaxis contraindicated with acute bleed Consult palliative care to assist with deciding goals of therapy. D/W Dr. Moeller, D/W ARTS ADMINISTRATOR. This patient remains critically ill with one or more organ systems which are or may become a threat to life. I have spent in excess of 40 minutes discontinuously in the care and management of this patient. This time is exclusive of procedures, and includes, but is not limited to, evaluation of the patient, review of the medical record, discussions with family, consultants, nursing staff, or respiratory therapy, and documentation in the medical record.
--- NOTE | 2018-03-04 14:39 | P.PNGI ---
Subjective Interval history: Patient is orally intubated and mechanically ventilated. Fantasma tube in place <Naila Hernandez - Last Filed: 03/04/18 14:25> Physical Exam Vital signs: Vital Signs 03/03/18 14:30 03/03/18 15:00 03/03/18 15:30 Temperature Pulse Rate 71 71 71 Respiratory Rate 20 20 24 Blood Pressure 114/59 L 114/60 113/63 Pulse Oximetry 92 L 92 L 92 L 03/03/18 16:00 03/03/18 16:30 03/03/18 17:00 Temperature Pulse Rate 71 71 71 Respiratory Rate 20 20 20 Blood Pressure 114/59 L 116/59 L 120/62 Pulse Oximetry 92 L 93 L 93 L 03/03/18 17:08 03/03/18 17:30 03/03/18 18:00 Temperature Pulse Rate 71 73 Respiratory Rate 20 20 20 Blood Pressure 119/63 120/67 Pulse Oximetry 93 L 93 L 93 L 03/03/18 18:30 03/03/18 19:00 03/03/18 19:30 Temperature 98.5 F 97.6 F Pulse Rate 71 72 72 Respiratory Rate 20 20 20 Blood Pressure 127/79 126/67 126/65 Pulse Oximetry 100 94 L 94 L 03/03/18 19:44 03/03/18 19:48 03/03/18 20:00 Temperature Pulse Rate 72 74 Respiratory Rate 20 20 20 Blood Pressure 124/64 Pulse Oximetry 94 L 93 L 03/03/18 20:30 03/03/18 21:00 03/03/18 21:30 Temperature Pulse Rate 74 74 75 Respiratory Rate 20 20 20 Blood Pressure 126/64 126/65 125/66 Pulse Oximetry 93 L 93 L 93 L 03/03/18 22:00 03/03/18 22:30 03/03/18 23:00 Temperature Pulse Rate 75 75 76 Respiratory Rate 20 20 20 Blood Pressure 124/65 123/68 127/70 Pulse Oximetry 93 L 93 L 94 L 03/03/18 23:30 03/04/18 00:00 03/04/18 00:19 Temperature 99.1 F Pulse Rate 77 77 Respiratory Rate 20 20 20 Blood Pressure 127/68 128/69 Pulse Oximetry 93 L 93 L 93 L 03/04/18 00:21 03/04/18 00:30 03/04/18 01:00 Temperature Pulse Rate 78 79 79 Respiratory Rate 20 20 20 Blood Pressure 129/73 135/73 Pulse Oximetry 93 L 92 L 03/04/18 01:30 03/04/18 02:00 03/04/18 02:30 Temperature Pulse Rate 79 79 79 Respiratory Rate 20 20 20 Blood Pressure 130/72 130/68 127/69 Pulse Oximetry 92 L 92 L 92 L 03/04/18 03:00 03/04/18 03:30 03/04/18 04:00 Temperature 100.1 F H Pulse Rate 79 80 79 Respiratory Rate 20 20 20 Blood Pressure 125/68 127/66 122/67 Pulse Oximetry 92 L 91 L 92 L 03/04/18 04:02 03/04/18 06:00 03/04/18 06:02 Temperature Pulse Rate 79 81 Respiratory Rate 20 Blood Pressure Pulse Oximetry 92 L 93 L 03/04/18 07:32 03/04/18 08:00 03/04/18 10:00 Temperature 100.1 F H Pulse Rate 79 82 78 Respiratory Rate 20 20 Blood Pressure 129/65 Pulse Oximetry 93 L 93 L 03/04/18 11:01 03/04/18 11:02 03/04/18 12:00 Temperature 100.2 F H Pulse Rate 77 79 Respiratory Rate 20 20 20 Blood Pressure 126/63 Pulse Oximetry 94 L 93 L 03/04/18 14:00 Temperature Pulse Rate 76 Respiratory Rate Blood Pressure Pulse Oximetry Intake & Output 03/03/18 03/04/18 03/04/18 18:59 06:59 18:59 Intake Total 2157.6 / 2157.6 2861.7 / 2861.7 383.8 / 383.8 Output Total 350 / 350 450 / 450 Balance 1807.6 / 1807.6 2411.7 / 2411.7 383.8 / 383.8 Weight 110.5 kg Intake: IV 2157.6 / 2157.6 2861.7 / 2861.7 383.8 / 383.8 Versed Inj 50 mg In 50 ml @ 2 90.8 / 90.8 100 / 100 50 / 50 MG/HR 2 mls/hr IV.CONT TITRATE PRN Rx#:[id number] SandoSTATIN Inj 500 MCG In NS 500.5 / 500.5 825.5 / 825.5 175.5 / 175.5 Inj 500 ML @ 50 MCG/HR 50.05 mls/hr IV.CONT .Q10H [facility] Rx#: [id number] Diprivan 1000 mg/100 ml Inj 1, 200 / 200 120 / 120 000 mg In 100 ml @ 5 MCG/KG/MIN 2.177 mls/hr IV.CONT TITRATE PRN Rx#:[id number] D10W Inj 1,000 ML @ 30 mls/hr 618 / 618 500 / 500 IV.SIG .Q24H [facility] Rx#:[id number] MVI-12 Inj 10 ML Thiamine Inj 511.2 / 511.2 100 MG Folvite Inj 1 MG In NS Inj 500 ML @ 125 mls/hr IV.SIG Q24H REPLACED BY [facility] Rx#:[id number] Levophed-Dextrose 4 mg/250 ml 56 / 56 Drip 4 mg In 250 ml @ 2 MCG/MIN 7.5 mls/hr IV.SIG TITRATE PRN Rx#:[id number] KCl 40 mEq Premix Inj 40 meq In 200 / 200 100 / 100 100 ml @ 25 mls/hr IV.SIG UNSCH PRN Rx#:[id number] NS Inj 250 ML @ 15 mls/hr IV. 250 / 250 20 / 20 SIG ONCE [facility] Rx#:[id number] Rocephin Inj 1,000 MG In NS Inj 200 / 200 100 ML @ 200 mls/hr IV.SIG Q24H REPLACED BY [facility] Rx#:[id number] fentaNYL 10 mcg/mL Premix Drip 158.3 / 158.3 429 / 429 158.3 / 158.3 2,500 mcg In 250 ml @ 50 MCG/HR 5 mls/hr IV.SIG TITRATE PRN Rx #:[id number] Output: Urine Amount (Catheter) 350 / 350 450 / 450 Indwelling Urethral Catheter 350 / 350 450 / 450 Other: Date of Last Bowel Movement 03/03/18 03/03/18 03/03/18 # Bowel Movements 0 - Constitutional Comments: Critically ill ,intubated - Routine HEENT Exam Head: Present: normocephalic - Routine Respiratory Exam Present: patient mechanically ventilated - Routine Abdominal Exam Present: soft, distended - Routine Extremities Exam Present: pulses intact - Routine Skin Exam Present: warm - Detailed Neurological Exam: Coma Scale Withdraws to pain does not follow commands - Urinary Catheter Management Indwelling Urethral Catheter Cath placed during this visit: no <Naila Hernandez - Last Filed: 03/04/18 14:25> Vital signs: Vital Signs 03/03/18 18:30 03/03/18 19:00 03/03/18 19:30 Temperature 98.5 F 97.6 F Pulse Rate 71 72 72 Respiratory Rate 20 20 20 Blood Pressure 127/79 126/67 126/65 Pulse Oximetry 100 94 L 94 L 03/03/18 19:44 03/03/18 19:48 03/03/18 20:00 Temperature Pulse Rate 72 74 Respiratory Rate 20 20 20 Blood Pressure 124/64 Pulse Oximetry 94 L 93 L 03/03/18 20:30 03/03/18 21:00 03/03/18 21:30 Temperature Pulse Rate 74 74 75 Respiratory Rate 20 20 20 Blood Pressure 126/64 126/65 125/66 Pulse Oximetry 93 L 93 L 93 L 03/03/18 22:00 03/03/18 22:30 03/03/18 23:00 Temperature Pulse Rate 75 75 76 Respiratory Rate 20 20 20 Blood Pressure 124/65 123/68 127/70 Pulse Oximetry 93 L 93 L 94 L 03/03/18 23:30 03/04/18 00:00 03/04/18 00:19 Temperature 99.1 F Pulse Rate 77 77 Respiratory Rate 20 20 20 Blood Pressure 127/68 128/69 Pulse Oximetry 93 L 93 L 93 L 03/04/18 00:21 03/04/18 00:30 03/04/18 01:00 Temperature Pulse Rate 78 79 79 Respiratory Rate 20 20 20 Blood Pressure 129/73 135/73 Pulse Oximetry 93 L 92 L 03/04/18 01:30 03/04/18 02:00 03/04/18 02:30 Temperature Pulse Rate 79 79 79 Respiratory Rate 20 20 20 Blood Pressure 130/72 130/68 127/69 Pulse Oximetry 92 L 92 L 92 L 03/04/18 03:00 03/04/18 03:30 03/04/18 04:00 Temperature 100.1 F H Pulse Rate 79 80 79 Respiratory Rate 20 20 20 Blood Pressure 125/68 127/66 122/67 Pulse Oximetry 92 L 91 L 92 L 03/04/18 04:02 03/04/18 06:00 03/04/18 06:02 Temperature Pulse Rate 79 81 Respiratory Rate 20 Blood Pressure Pulse Oximetry 92 L 93 L 03/04/18 07:32 03/04/18 08:00 03/04/18 10:00 Temperature 100.1 F H Pulse Rate 79 82 78 Respiratory Rate 20 20 Blood Pressure 129/65 Pulse Oximetry 93 L 93 L 03/04/18 11:01 03/04/18 11:02 03/04/18 12:00 Temperature 100.2 F H Pulse Rate 77 79 Respiratory Rate 20 20 20 Blood Pressure 126/63 Pulse Oximetry 94 L 93 L 03/04/18 14:00 03/04/18 16:19 Temperature Pulse Rate 76 95 H Respiratory Rate 20 Blood Pressure Pulse Oximetry 95 Intake & Output 03/03/18 03/04/18 03/04/18 18:59 06:59 18:59 Intake Total 2157.6 / 2157.6 2861.7 / 2861.7 433.8 / 433.8 Output Total 350 / 350 450 / 450 Balance 1807.6 / 1807.6 2411.7 / 2411.7 433.8 / 433.8 Weight 110.5 kg Intake: IV 2157.6 / 2157.6 2861.7 / 2861.7 433.8 / 433.8 Versed Inj 50 mg In 50 ml @ 2 90.8 / 90.8 100 / 100 100 / 100 MG/HR 2 mls/hr IV.CONT TITRATE PRN Rx#:[id number] SandoSTATIN Inj 500 MCG In NS 500.5 / 500.5 825.5 / 825.5 175.5 / 175.5 Inj 500 ML @ 50 MCG/HR 50.05 mls/hr IV.CONT .Q10H [facility] Rx#: [id number] Diprivan 1000 mg/100 ml Inj 1, 200 / 200 120 / 120 000 mg In 100 ml @ 5 MCG/KG/MIN 2.177 mls/hr IV.CONT TITRATE PRN Rx#:[id number] D10W Inj 1,000 ML @ 30 mls/hr 618 / 618 500 / 500 IV.SIG .Q24H [facility] Rx#:[id number] MVI-12 Inj 10 ML Thiamine Inj 511.2 / 511.2 100 MG Folvite Inj 1 MG In NS Inj 500 ML @ 125 mls/hr IV.SIG Q24H [facility] Rx#:[id number] Levophed-Dextrose 4 mg/250 ml 56 / 56 Drip 4 mg In 250 ml @ 2 MCG/MIN 7.5 mls/hr IV.SIG TITRATE PRN Rx#:[id number] KCl 40 mEq Premix Inj 40 meq In 200 / 200 100 / 100 100 ml @ 25 mls/hr IV.SIG UNSCH PRN Rx#:[id number] NS Inj 250 ML @ 15 mls/hr IV. 250 / 250 20 / 20 SIG ONCE [facility] Rx#:[id number] Rocephin Inj 1,000 MG In NS Inj 200 / 200 100 ML @ 200 mls/hr IV.SIG Q24H [facility] Rx#:[id number] fentaNYL 10 mcg/mL Premix Drip 158.3 / 158.3 429 / 429 158.3 / 158.3 2,500 mcg In 250 ml @ 50 MCG/HR 5 mls/hr IV.SIG TITRATE PRN Rx #:[id number] Output: Urine Amount (Catheter) 350 / 350 450 / 450 Indwelling Urethral Catheter 350 / 350 450 / 450 Other: Date of Last Bowel Movement 03/03/18 03/03/18 03/03/18 # Bowel Movements 0 - Urinary Catheter Management Indwelling Urethral Catheter Cath placed during this visit: no <Lennie Moeller - Last Filed: 03/04/18 18:06> Results - Labs CBC & Chem 7: 03/04/18 13:00 03/04/18 11:05 Laboratory Results - last 24 hr 03/02/18 03/03/18 03/03/18 11:22 16:40 16:40 WBC RBC Hgb Hct MCV MCH MCHC RDW Plt Count MPV Prelim Diff (Auto) Neut % (Auto) Lymph % (Auto) [place] % (Auto) Eos % (Auto) Baso % (Auto) Neut # (Auto) Lymph # (Auto) [place] # (Auto) Eos # (Auto) Baso # (Auto) WBC Differential Seg Neuts % (Manual) Band Neuts % (Manual) Lymphocytes % (Manual) Monocytes % (Manual) Abs Neuts (Manual) Differential Comment Platelet Estimate Platelet Morphology RBC Morphology Hematology Comments PT 15.0 H INR 1.5 APTT 31.7 PT Normal Plasma Immed PT Normal Plasma 1 Hr PT Pat/Norm 1:4 Immed PT Pat/Norm 1:1 Immed PT Pat/Norm 1:1 1h 37c PT Pat/Norm 4:1 Immed PT Patient Plasma Immed PT Mix Interpretation PTT Normal Plasma Immed PTT Normal Plasma 1 Hr PTT Pat/Norm 1:4 Immed PTT Pat/Norm 1:1 Immed PTT Pat/Norm 1:1 1h 37c PTT Pat/Norm 4:1 Immed PTT Patient Plsma Immed PTT Mix Interpretation Fibrinogen Factor Inhibitor Screen Sodium Potassium Chloride Carbon Dioxide Anion Gap BUN Creatinine Estimated GFR POC Glucose Random Glucose Lactic Acid Calcium Prot Corrected Calcium Total Bilirubin AST ALT Alkaline Phosphatase Lactate Dehydrogenase 403 H Total Protein Albumin Blood Type Antibody Screen MTS Gel Crossmatch See Detail 03/03/18 03/03/18 03/03/18 16:40 18:25 19:00 WBC RBC Hgb Hct MCV MCH MCHC RDW Plt Count MPV Prelim Diff (Auto) Neut % (Auto) Lymph % (Auto) [place] % (Auto) Eos % (Auto) Baso % (Auto) Neut # (Auto) Lymph # (Auto) [place] # (Auto) Eos # (Auto) Baso # (Auto) WBC Differential Seg Neuts % (Manual) Band Neuts % (Manual) Lymphocytes % (Manual) Monocytes % (Manual) Abs Neuts (Manual) Differential Comment Platelet Estimate Platelet Morphology RBC Morphology Hematology Comments PT INR APTT PT Normal Plasma Immed 10.2 PT Normal Plasma 1 Hr 10.3 PT Pat/Norm 1:4 Immed 10.5 PT Pat/Norm 1:1 Immed 11.4 PT Pat/Norm 1:1 1h 37c 11.9 H PT Pat/Norm 4:1 Immed 12.7 H PT Patient Plasma Immed 15.0 H PT Mix Interpretation PTT Normal Plasma Immed 26.4 PTT Normal Plasma 1 Hr 27.7 PTT Pat/Norm 1:4 Immed 26.3 PTT Pat/Norm 1:1 Immed 27.0 PTT Pat/Norm 1:1 1h 37c 31.2 PTT Pat/Norm 4:1 Immed 28.9 PTT Patient Plsma Immed 31.7 PTT Mix Interpretation Fibrinogen Factor Inhibitor Screen Sodium Potassium 3.4 L Chloride Carbon Dioxide Anion Gap BUN Creatinine Estimated GFR POC Glucose 88 Random Glucose Lactic Acid Calcium Prot Corrected Calcium Total Bilirubin AST ALT Alkaline Phosphatase Lactate Dehydrogenase Total Protein Albumin Blood Type Antibody Screen MTS Gel Crossmatch 03/03/18 03/03/18 03/03/18 19:00 23:00 23:00 WBC RBC Hgb 13.1 13.2 Hct 37.9 L 37.2 L MCV MCH MCHC RDW Plt Count MPV Prelim Diff (Auto) Neut % (Auto) Lymph % (Auto) [place] % (Auto) Eos % (Auto) Baso % (Auto) Neut # (Auto) Lymph # (Auto) [place] # (Auto) Eos # (Auto) Baso # (Auto) WBC Differential Seg Neuts % (Manual) Band Neuts % (Manual) Lymphocytes % (Manual) Monocytes % (Manual) Abs Neuts (Manual) Differential Comment Platelet Estimate Platelet Morphology RBC Morphology Hematology Comments PT INR APTT PT Normal Plasma Immed PT Normal Plasma 1 Hr PT Pat/Norm 1:4 Immed PT Pat/Norm 1:1 Immed PT Pat/Norm 1:1 1h 37c PT Pat/Norm 4:1 Immed PT Patient Plasma Immed PT Mix Interpretation PTT Normal Plasma Immed PTT Normal Plasma 1 Hr PTT Pat/Norm 1:4 Immed PTT Pat/Norm 1:1 Immed PTT Pat/Norm 1:1 1h 37c PTT Pat/Norm 4:1 Immed PTT Patient Plsma Immed PTT Mix Interpretation Fibrinogen Factor Inhibitor Screen Sodium Potassium Chloride Carbon Dioxide Anion Gap BUN Creatinine Estimated GFR POC Glucose Random Glucose Lactic Acid 1.0 Calcium Prot Corrected Calcium Total Bilirubin AST ALT Alkaline Phosphatase Lactate Dehydrogenase Total Protein Albumin Blood Type Antibody Screen MTS Gel Crossmatch 03/03/18 03/04/18 03/04/18 23:39 04:40 04:40 WBC RBC Hgb 13.4 Hct 39.2 MCV MCH MCHC RDW Plt Count MPV Prelim Diff (Auto) Neut % (Auto) Lymph % (Auto) [place] % (Auto) Eos % (Auto) Baso % (Auto) Neut # (Auto) Lymph # (Auto) [place] # (Auto) Eos # (Auto) Baso # (Auto) WBC Differential Seg Neuts % (Manual) Band Neuts % (Manual) Lymphocytes % (Manual) Monocytes % (Manual) Abs Neuts (Manual) Differential Comment Platelet Estimate Platelet Morphology RBC Morphology Hematology Comments PT INR APTT 29.9 PT Normal Plasma Immed PT Normal Plasma 1 Hr PT Pat/Norm 1:4 Immed PT Pat/Norm 1:1 Immed PT Pat/Norm 1:1 1h 37c PT Pat/Norm 4:1 Immed PT Patient Plasma Immed PT Mix Interpretation PTT Normal Plasma Immed PTT Normal Plasma 1 Hr PTT Pat/Norm 1:4 Immed PTT Pat/Norm 1:1 Immed PTT Pat/Norm 1:1 1h 37c PTT Pat/Norm 4:1 Immed PTT Patient Plsma Immed PTT Mix Interpretation Fibrinogen Factor Inhibitor Screen Sodium Potassium Chloride Carbon Dioxide Anion Gap BUN Creatinine Estimated GFR POC Glucose 87 Random Glucose Lactic Acid Calcium Prot Corrected Calcium Total Bilirubin AST ALT Alkaline Phosphatase Lactate Dehydrogenase Total Protein Albumin Blood Type Antibody Screen MTS Gel Crossmatch 03/04/18 03/04/18 03/04/18 05:21 11:05 11:05 WBC 9.9 RBC 4.38 L Hgb Cancelled 13.0 Hct Cancelled 38.7 L MCV 88.2 D MCH 29.8 MCHC 33.7 RDW 15.6 Plt Count 44 L MPV 10.1 Prelim Diff (Auto) Slide review pending Neut % (Auto) 79.9 H Lymph % (Auto) 13.9 [place] % (Auto) 5.8 Eos % (Auto) 0.1 Baso % (Auto) 0.3 Neut # (Auto) 7.9 H Lymph # (Auto) 1.4 [place] # (Auto) 0.6 Eos # (Auto) 0.0 Baso # (Auto) 0.0 WBC Differential Manual diff final Seg Neuts % (Manual) 64 Band Neuts % (Manual) 26 H Lymphocytes % (Manual) 5 L Monocytes % (Manual) 5 Abs Neuts (Manual) 8.9 H Differential Comment . Platelet Estimate Low L Platelet Morphology Normal RBC Morphology Normal Hematology Comments Cancelled PT INR APTT PT Normal Plasma Immed PT Normal Plasma 1 Hr PT Pat/Norm 1:4 Immed PT Pat/Norm 1:1 Immed PT Pat/Norm 1:1 1h 37c PT Pat/Norm 4:1 Immed PT Patient Plasma Immed PT Mix Interpretation PTT Normal Plasma Immed PTT Normal Plasma 1 Hr PTT Pat/Norm 1:4 Immed PTT Pat/Norm 1:1 Immed PTT Pat/Norm 1:1 1h 37c PTT Pat/Norm 4:1 Immed PTT Patient Plsma Immed PTT Mix Interpretation Fibrinogen Factor Inhibitor Screen Sodium Potassium Chloride Carbon Dioxide Anion Gap BUN Creatinine Estimated GFR POC Glucose 88 Random Glucose Lactic Acid Calcium Prot Corrected Calcium Total Bilirubin AST ALT Alkaline Phosphatase Lactate Dehydrogenase Total Protein Albumin Blood Type Antibody Screen MTS Gel Crossmatch 03/04/18 03/04/1818 11:05 11:05 13:00 WBC RBC Hgb 12.9 L Hct 38.2 L MCV MCH MCHC RDW Plt Count MPV Prelim Diff (Auto) Neut % (Auto) Lymph % (Auto) [place] % (Auto) Eos % (Auto) Baso % (Auto) Neut # (Auto) Lymph # (Auto) [place] # (Auto) Eos # (Auto) Baso # (Auto) WBC Differential Seg Neuts % (Manual) Band Neuts % (Manual) Lymphocytes % (Manual) Monocytes % (Manual) Abs Neuts (Manual) Differential Comment Platelet Estimate Platelet Morphology RBC Morphology Hematology Comments PT 13.1 H INR 1.3 APTT 30.0 PT Normal Plasma Immed PT Normal Plasma 1 Hr PT Pat/Norm 1:4 Immed PT Pat/Norm 1:1 Immed PT Pat/Norm 1:1 1h 37c PT Pat/Norm 4:1 Immed PT Patient Plasma Immed PT Mix Interpretation PTT Normal Plasma Immed PTT Normal Plasma 1 Hr PTT Pat/Norm 1:4 Immed PTT Pat/Norm 1:1 Immed PTT Pat/Norm 1:1 1h 37c PTT Pat/Norm 4:1 Immed PTT Patient Plsma Immed PTT Mix Interpretation Fibrinogen 213 L Factor Inhibitor Screen Sodium 145 Potassium 3.9 Chloride 110 H Carbon Dioxide 29.8 Anion Gap 5 BUN 19 H Creatinine 0.92 Estimated GFR Greater than 89 POC Glucose Random Glucose 86 Lactic Acid Calcium 6.8 L* Prot Corrected Calcium 8.0 L Total Bilirubin 2.0 H AST 528 H ALT 361 H Alkaline Phosphatase 92 Lactate Dehydrogenase Total Protein 4.8 L Albumin 2.1 L Blood Type Antibody Screen MTS Gel Crossmatch 03/04/18 13:31 WBC RBC Hgb Hct MCV MCH MCHC RDW Plt Count MPV Prelim Diff (Auto) Neut % (Auto) Lymph % (Auto) [place] % (Auto) Eos % (Auto) Baso % (Auto) Neut # (Auto) Lymph # (Auto) [place] # (Auto) Eos # (Auto) Baso # (Auto) WBC Differential Seg Neuts % (Manual) Band Neuts % (Manual) Lymphocytes % (Manual) Monocytes % (Manual) Abs Neuts (Manual) Differential Comment Platelet Estimate Platelet Morphology RBC Morphology Hematology Comments PT INR APTT PT Normal Plasma Immed PT Normal Plasma 1 Hr PT Pat/Norm 1:4 Immed PT Pat/Norm 1:1 Immed PT Pat/Norm 1:1 1h 37c PT Pat/Norm 4:1 Immed PT Patient Plasma Immed PT Mix Interpretation PTT Normal Plasma Immed PTT Normal Plasma 1 Hr PTT Pat/Norm 1:4 Immed PTT Pat/Norm 1:1 Immed PTT Pat/Norm 1:1 1h 37c PTT Pat/Norm 4:1 Immed PTT Patient Plsma Immed PTT Mix Interpretation Fibrinogen Factor Inhibitor Screen Sodium Potassium Chloride Carbon Dioxide Anion Gap BUN Creatinine Estimated GFR POC Glucose Random Glucose Lactic Acid Calcium Prot Corrected Calcium Total Bilirubin AST ALT Alkaline Phosphatase Lactate Dehydrogenase Total Protein Albumin Blood Type A Negative Antibody Screen Negative MTS Gel Crossmatch See Detail Microbiology 03/02/18 15:00 Sputum - Endotracheal Gram Stain - Final 03/02/18 15:00 Sputum - Endotracheal Sputum Culture - Final Rare growth normal respiratory tyrese 03/01/18 21:45 Blood - Peripheral Aerobic Blood Culture - Preliminary No growth in 3 days 03/01/18 21:45 Blood - Peripheral Anaerobic Blood Culture - Preliminary No growth in 3 days 03/01/18 21:40 Blood - Peripheral Aerobic Blood Culture - Preliminary No growth in 3 days 03/01/18 21:40 Blood - Peripheral Anaerobic Blood Culture - Preliminary No growth in 3 days <Naila Hernandez - Last Filed: 03/04/18 14:25> - Labs CBC & Chem 7: 03/04/18 13:00 03/04/18 11:05 Laboratory Results - last 24 hr 03/02/18 03/03/18 03/03/18 11:22 16:40 16:40 WBC RBC Hgb Hct MCV MCH MCHC RDW Plt Count MPV Prelim Diff (Auto) Neut % (Auto) Lymph % (Auto) [place] % (Auto) Eos % (Auto) Baso % (Auto) Neut # (Auto) Lymph # (Auto) [place] # (Auto) Eos # (Auto) Baso # (Auto) WBC Differential Seg Neuts % (Manual) Band Neuts % (Manual) Lymphocytes % (Manual) Monocytes % (Manual) Abs Neuts (Manual) Differential Comment Platelet Estimate Platelet Morphology RBC Morphology Hematology Comments PT INR APTT PT Normal Plasma Immed 10.2 PT Normal Plasma 1 Hr 10.3 PT Pat/Norm 1:4 Immed 10.5 PT Pat/Norm 1:1 Immed 11.4 PT Pat/Norm 1:1 1h 37c 11.9 H PT Pat/Norm 4:1 Immed 12.7 H PT Patient Plasma Immed 15.0 H PT Mix Interpretation PTT Normal Plasma Immed 26.4 PTT Normal Plasma 1 Hr 27.7 PTT Pat/Norm 1:4 Immed 26.3 PTT Pat/Norm 1:1 Immed 27.0 PTT Pat/Norm 1:1 1h 37c 31.2 PTT Pat/Norm 4:1 Immed 28.9 PTT Patient Plsma Immed 31.7 PTT Mix Interpretation Fibrinogen Factor Inhibitor Screen Sodium Potassium Chloride Carbon Dioxide Anion Gap BUN Creatinine Estimated GFR POC Glucose Random Glucose Lactic Acid Calcium Prot Corrected Calcium Total Bilirubin AST ALT Alkaline Phosphatase Total Protein Albumin Blood Type Antibody Screen MTS Gel Crossmatch See Detail 03/03/18 03/03/18 03/03/18 18:25 19:00 19:00 WBC RBC Hgb 13.1 Hct 37.9 L MCV MCH MCHC RDW Plt Count MPV Prelim Diff (Auto) Neut % (Auto) Lymph % (Auto) [place] % (Auto) Eos % (Auto) Baso % (Auto) Neut # (Auto) Lymph # (Auto) [place] # (Auto) Eos # (Auto) Baso # (Auto) WBC Differential Seg Neuts % (Manual) Band Neuts % (Manual) Lymphocytes % (Manual) Monocytes % (Manual) Abs Neuts (Manual) Differential Comment Platelet Estimate Platelet Morphology RBC Morphology Hematology Comments PT INR APTT PT Normal Plasma Immed PT Normal Plasma 1 Hr PT Pat/Norm 1:4 Immed PT Pat/Norm 1:1 Immed PT Pat/Norm 1:1 1h 37c PT Pat/Norm 4:1 Immed PT Patient Plasma Immed PT Mix Interpretation PTT Normal Plasma Immed PTT Normal Plasma 1 Hr PTT Pat/Norm 1:4 Immed PTT Pat/Norm 1:1 Immed PTT Pat/Norm 1:1 1h 37c PTT Pat/Norm 4:1 Immed PTT Patient Plsma Immed PTT Mix Interpretation Fibrinogen Factor Inhibitor Screen Sodium Potassium 3.4 L Chloride Carbon Dioxide Anion Gap BUN Creatinine Estimated GFR POC Glucose 88 Random Glucose Lactic Acid Calcium Prot Corrected Calcium Total Bilirubin AST ALT Alkaline Phosphatase Total Protein Albumin Blood Type Antibody Screen MTS Gel Crossmatch 03/03/18 03/03/18 03/03/18 23:00 23:00 23:39 WBC RBC Hgb 13.2 Hct 37.2 L MCV MCH MCHC RDW Plt Count MPV Prelim Diff (Auto) Neut % (Auto) Lymph % (Auto) [place] % (Auto) Eos % (Auto) Baso % (Auto) Neut # (Auto) Lymph # (Auto) [place] # (Auto) Eos # (Auto) Baso # (Auto) WBC Differential Seg Neuts % (Manual) Band Neuts % (Manual) Lymphocytes % (Manual) Monocytes % (Manual) Abs Neuts (Manual) Differential Comment Platelet Estimate Platelet Morphology RBC Morphology Hematology Comments PT INR APTT PT Normal Plasma Immed PT Normal Plasma 1 Hr PT Pat/Norm 1:4 Immed PT Pat/Norm 1:1 Immed PT Pat/Norm 1:1 1h 37c PT Pat/Norm 4:1 Immed PT Patient Plasma Immed PT Mix Interpretation PTT Normal Plasma Immed PTT Normal Plasma 1 Hr PTT Pat/Norm 1:4 Immed PTT Pat/Norm 1:1 Immed PTT Pat/Norm 1:1 1h 37c PTT Pat/Norm 4:1 Immed PTT Patient Plsma Immed PTT Mix Interpretation Fibrinogen Factor Inhibitor Screen Sodium Potassium Chloride Carbon Dioxide Anion Gap BUN Creatinine Estimated GFR POC Glucose 87 Random Glucose Lactic Acid 1.0 Calcium Prot Corrected Calcium Total Bilirubin AST ALT Alkaline Phosphatase Total Protein Albumin Blood Type Antibody Screen MTS Gel Crossmatch 03/04/18 03/04/18 03/04/18 04:40 04:40 05:21 WBC RBC Hgb 13.4 Hct 39.2 MCV MCH MCHC RDW Plt Count MPV Prelim Diff (Auto) Neut % (Auto) Lymph % (Auto) [place] % (Auto) Eos % (Auto) Baso % (Auto) Neut # (Auto) Lymph # (Auto) [place] # (Auto) Eos # (Auto) Baso # (Auto) WBC Differential Seg Neuts % (Manual) Band Neuts % (Manual) Lymphocytes % (Manual) Monocytes % (Manual) Abs Neuts (Manual) Differential Comment Platelet Estimate Platelet Morphology RBC Morphology Hematology Comments PT INR APTT 29.9 PT Normal Plasma Immed PT Normal Plasma 1 Hr PT Pat/Norm 1:4 Immed PT Pat/Norm 1:1 Immed PT Pat/Norm 1:1 1h 37c PT Pat/Norm 4:1 Immed PT Patient Plasma Immed PT Mix Interpretation PTT Normal Plasma Immed PTT Normal Plasma 1 Hr PTT Pat/Norm 1:4 Immed PTT Pat/Norm 1:1 Immed PTT Pat/Norm 1:1 1h 37c PTT Pat/Norm 4:1 Immed PTT Patient Plsma Immed PTT Mix Interpretation Fibrinogen Factor Inhibitor Screen Sodium Potassium Chloride Carbon Dioxide Anion Gap BUN Creatinine Estimated GFR POC Glucose 88 Random Glucose Lactic Acid Calcium Prot Corrected Calcium Total Bilirubin AST ALT Alkaline Phosphatase Total Protein Albumin Blood Type Antibody Screen MTS Gel Crossmatch 03/04/18 03/04/18 03/04/18 11:05 11:05 11:05 WBC 9.9 RBC 4.38 L Hgb Cancelled 13.0 Hct Cancelled 38.7 L MCV 88.2 D MCH 29.8 MCHC 33.7 RDW 15.6 Plt Count 44 L MPV 10.1 Prelim Diff (Auto) Slide review pending Neut % (Auto) 79.9 H Lymph % (Auto) 13.9 [place] % (Auto) 5.8 Eos % (Auto) 0.1 Baso % (Auto) 0.3 Neut # (Auto) 7.9 H Lymph # (Auto) 1.4 [place] # (Auto) 0.6 Eos # (Auto) 0.0 Baso # (Auto) 0.0 WBC Differential Manual diff final Seg Neuts % (Manual) 64 Band Neuts % (Manual) 26 H Lymphocytes % (Manual) 5 L Monocytes % (Manual) 5 Abs Neuts (Manual) 8.9 H Differential Comment . Platelet Estimate Low L Platelet Morphology Normal RBC Morphology Normal Hematology Comments Cancelled PT 13.1 H INR 1.3 APTT 30.0 PT Normal Plasma Immed PT Normal Plasma 1 Hr PT Pat/Norm 1:4 Immed PT Pat/Norm 1:1 Immed PT Pat/Norm 1:1 1h 37c PT Pat/Norm 4:1 Immed PT Patient Plasma Immed PT Mix Interpretation PTT Normal Plasma Immed PTT Normal Plasma 1 Hr PTT Pat/Norm 1:4 Immed PTT Pat/Norm 1:1 Immed PTT Pat/Norm 1:1 1h 37c PTT Pat/Norm 4:1 Immed PTT Patient Plsma Immed PTT Mix Interpretation Fibrinogen 213 L Factor Inhibitor Screen Sodium Potassium Chloride Carbon Dioxide Anion Gap BUN Creatinine Estimated GFR POC Glucose Random Glucose Lactic Acid Calcium Prot Corrected Calcium Total Bilirubin AST ALT Alkaline Phosphatase Total Protein Albumin Blood Type Antibody Screen MTS Gel Crossmatch 03/04/18 03/04/18 03/04/18 11:05 13:00 13:31 WBC RBC Hgb 12.9 L Hct 38.2 L MCV MCH MCHC RDW Plt Count MPV Prelim Diff (Auto) Neut % (Auto) Lymph % (Auto) [place] % (Auto) Eos % (Auto) Baso % (Auto) Neut # (Auto) Lymph # (Auto) [place] # (Auto) Eos # (Auto) Baso # (Auto) WBC Differential Seg Neuts % (Manual) Band Neuts % (Manual) Lymphocytes % (Manual) Monocytes % (Manual) Abs Neuts (Manual) Differential Comment Platelet Estimate Platelet Morphology RBC Morphology Hematology Comments PT INR APTT PT Normal Plasma Immed PT Normal Plasma 1 Hr PT Pat/Norm 1:4 Immed PT Pat/Norm 1:1 Immed PT Pat/Norm 1:1 1h 37c PT Pat/Norm 4:1 Immed PT Patient Plasma Immed PT Mix Interpretation PTT Normal Plasma Immed PTT Normal Plasma 1 Hr PTT Pat/Norm 1:4 Immed PTT Pat/Norm 1:1 Immed PTT Pat/Norm 1:1 1h 37c PTT Pat/Norm 4:1 Immed PTT Patient Plsma Immed PTT Mix Interpretation Fibrinogen Factor Inhibitor Screen Sodium 145 Potassium 3.9 Chloride 110 H Carbon Dioxide 29.8 Anion Gap 5 BUN 19 H Creatinine 0.92 Estimated GFR Greater than 89 POC Glucose Random Glucose 86 Lactic Acid Calcium 6.8 L* Prot Corrected Calcium 8.0 L Total Bilirubin 2.0 H AST 528 H ALT 361 H Alkaline Phosphatase 92 Total Protein 4.8 L Albumin 2.1 L Blood Type A Negative Antibody Screen Negative MTS Gel Crossmatch See Detail Microbiology 03/02/18 15:00 Sputum - Endotracheal Gram Stain - Final 03/02/18 15:00 Sputum - Endotracheal Sputum Culture - Final Rare growth normal respiratory tyrese 03/01/18 21:45 Blood - Peripheral Aerobic Blood Culture - Preliminary No growth in 3 days 03/01/18 21:45 Blood - Peripheral Anaerobic Blood Culture - Preliminary No growth in 3 days 03/01/18 21:40 Blood - Peripheral Aerobic Blood Culture - Preliminary No growth in 3 days 03/01/18 21:40 Blood - Peripheral Anaerobic Blood Culture - Preliminary No growth in 3 days <Lennie Moeller - Last Filed: 03/04/18 18:06> Assessment and Plan - Plan - Massive hemorrhagic GI bleed Has received massive transfusion including RBC, FFP, Plts, adn cryoprecipitate . S/P EGD on 03/02/18 1. Large amount of blood in stomach fresh blood in esophagus -arterial looking-could not be washed ulcers from previous banding site seen-possible source of bleeding epinephrine 6 cc -injected large amount of fresh blood Edel tube placed 2. Retroflexed views revealed large amount of blood IR for angiogram consulted stat or possible TIPS, angiogram. Repeat pt/inr, fibrinogen suggested severe coagulopathy, possible DIC. evaluated patient , was decided to hold off on procedures due to sever coagulopathy - Liver cirrhosis secondary to hep-C and alcohol abuse 03/04/2018 Upper GI bleed secondary to esophageal varices Status post EGD on 03/02/2018 with variceal banding Fantasma tube in place. Hemoglobin 12.9 hematocrit 38.2. INR 1.3.Currently on pantoprazole drip, octreotide drip. Plan -N.p.o. -Endoscopy when patient stable -Monitor closely for bleeding -Monitor hemoglobin and hematocrit -Continue to monitor liver function -Pantoprazole drip, octreotide drip -Prognosis poor -Supportive care -Further recommendations to follow This patient has been seen by myself and Dr. Moeller and this note is written on her behalf - Attending Attestation Dr. Moeller <Naila Hernandez - Last Filed: 03/04/18 14:25> - Attending Attestation seen, examined Fantasma tube deflated , left in place as NGT cta when stable possible egd in 1-2 days supportive care <Lennie Moeller - Last Filed: 03/04/18 18:06>
[2018-03-04] MEDS ORDERED: Albumin Human 25% Inj 100 ML IV.SIG ONE (15:00)
--- NOTE | 2018-03-04 16:17 | P.PCN ---
Date of procedure: 03/04/18 Pre-op diagnosis: Acute respiratory failure, cirrhosis, ascites, upper GI bleed Post-op diagnosis: same Procedure: Procedure: Ultrasound-guided abdominal paracentesis Informed consent obtained from family and documented on chart. Anesthesia used: 1% lidocaine for local infiltration anesthesia Procedure: Ultrasound was used to locate ascites in left lower quadrant After sterile prepping and draping using 1% lidocaine for local infiltration anesthesia, peritoneal cavity was entered using thoracentesis needle and thoracentesis catheter was advanced into the peritoneal cavity as evidenced by return of straw-colored ascites fluid and needle was removed. After connecting tubing, peritoneal fluid was drained using Vacutainer bottles. 3.5 Liters of ascitic fluid was drained. Specimen was collected for lab studies and cultures. Subsequently drainage catheter was removed and dressing was applied to the site. 25% albumin 50 cc IVPB was started prior to start of the procedure. patient tolerated procedure well with no immediate complications noted. Condition: stable Disposition: ICU
[2018-03-04 18:06] LABS: Hemoglobin 12.3 gm/dL (13.0-17.0)
[2018-03-04 18:41] LABS: Total Protein,Peritoneal Fluid 0.8 gm/dL
[2018-03-04 18:42] LABS: RBC,Peritoneal Fluid 2500 /mm3 (0-0)
[2018-03-04 18:44] LABS: Neutrophils,Peritoneal Fluid 12 %
--- NOTE | 2018-03-04 19:18 | P.PNONC ---
Subjective Interval history: Events today noted. No history obtained from the patient as he is still intubated and sedated. No family member at bedside at the time of rounds. Objective Vital Signs/Intake & Output: Vital Signs 03/03/18 19:30 03/03/18 19:44 03/03/18 19:48 Temperature Pulse Rate 72 72 Respiratory Rate 20 20 20 Blood Pressure 126/65 Pulse Oximetry 94 L 94 L 03/03/18 20:00 03/03/18 20:30 03/03/18 21:00 Temperature Pulse Rate 74 74 74 Respiratory Rate 20 20 20 Blood Pressure 124/64 126/64 126/65 Pulse Oximetry 93 L 93 L 93 L 03/03/18 21:30 03/03/18 22:00 03/03/18 22:30 Temperature Pulse Rate 75 75 75 Respiratory Rate 20 20 20 Blood Pressure 125/66 124/65 123/68 Pulse Oximetry 93 L 93 L 93 L 03/03/18 23:00 03/03/18 23:30 03/04/18 00:00 Temperature 99.1 F Pulse Rate 76 77 77 Respiratory Rate 20 20 20 Blood Pressure 127/70 127/68 128/69 Pulse Oximetry 94 L 93 L 93 L 03/04/18 00:19 03/04/18 00:21 03/04/18 00:30 Temperature Pulse Rate 78 79 Respiratory Rate 20 20 20 Blood Pressure 129/73 Pulse Oximetry 93 L 93 L 03/04/18 01:00 03/04/18 01:30 03/04/18 02:00 Temperature Pulse Rate 79 79 79 Respiratory Rate 20 20 20 Blood Pressure 135/73 130/72 130/68 Pulse Oximetry 92 L 92 L 92 L 03/04/18 02:30 03/04/18 03:00 03/04/18 03:30 Temperature Pulse Rate 79 79 80 Respiratory Rate 20 20 20 Blood Pressure 127/69 125/68 127/66 Pulse Oximetry 92 L 92 L 91 L 03/04/18 04:00 03/04/18 04:02 03/04/18 06:00 Temperature 100.1 F H Pulse Rate 79 79 81 Respiratory Rate 20 20 Blood Pressure 122/67 Pulse Oximetry 92 L 92 L 03/04/18 06:02 03/04/18 07:32 03/04/18 08:00 Temperature 100.1 F H Pulse Rate 79 82 Respiratory Rate 20 20 Blood Pressure 129/65 Pulse Oximetry 93 L 93 L 93 L 03/04/18 10:00 03/04/18 11:01 03/04/18 11:02 Temperature Pulse Rate 78 77 Respiratory Rate 20 20 Blood Pressure Pulse Oximetry 94 L 03/04/18 12:00 03/04/18 14:00 03/04/18 16:00 Temperature 100.2 F H 97.4 F L Pulse Rate 79 76 73 Respiratory Rate 20 20 Blood Pressure 126/63 120/56 L Pulse Oximetry 93 L 98 03/04/18 16:19 03/04/18 18:00 Temperature Pulse Rate 95 H 73 Respiratory Rate 20 Blood Pressure Pulse Oximetry 95 Intake & Output 03/04/18 03/04/18 03/05/18 06:59 18:59 06:59 Intake Total 2861.7 / 2861.7 533.8 / 533.8 Output Total 450 / 450 450 / 450 Balance 2411.7 / 2411.7 83.8 / 83.8 Weight 110.5 kg Intake: IV 2861.7 / 2861.7 533.8 / 533.8 Versed Inj 50 mg In 50 ml @ 2 100 / 100 100 / 100 MG/HR 2 mls/hr IV.CONT TITRATE PRN Rx#:[id number] SandoSTATIN Inj 500 MCG In NS 825.5 / 825.5 175.5 / 175.5 Inj 500 ML @ 50 MCG/HR 50.05 mls/hr IV.CONT .Q10H JOSR Rx#: [id number] Diprivan 1000 mg/100 ml Inj 1, 120 / 120 000 mg In 100 ml @ 5 MCG/KG/MIN 2.177 mls/hr IV.CONT TITRATE PRN Rx#:[id number] Flexbumin 25% Inj 100 ML @ 60 100 / 100 mls/hr IV.SIG ONCE ONE Rx#: [id number] D10W Inj 1,000 ML @ 30 mls/hr 500 / 500 IV.SIG .Q24H [facility] Rx#:[id number] MVI-12 Inj 10 ML Thiamine Inj 511.2 / 511.2 100 MG Folvite Inj 1 MG In NS Inj 500 ML @ 125 mls/hr IV.SIG Q24H [facility] Rx#:[id number] Levophed-Dextrose 4 mg/250 ml 56 / 56 Drip 4 mg In 250 ml @ 2 MCG/MIN 7.5 mls/hr IV.SIG TITRATE PRN Rx#:[id number] KCl 40 mEq Premix Inj 40 meq In 100 / 100 100 ml @ 25 mls/hr IV.SIG UNSCH PRN Rx#:[id number] NS Inj 250 ML @ 15 mls/hr IV. 20 / 20 SIG ONCE JOSR Rx#:[id number] Rocephin Inj 1,000 MG In NS Inj 200 / 200 100 ML @ 200 mls/hr IV.SIG Q24H [facility] Rx#:[id number] fentaNYL 10 mcg/mL Premix Drip 429 / 429 158.3 / 158.3 2,500 mcg In 250 ml @ 50 MCG/HR 5 mls/hr IV.SIG TITRATE PRN Rx #:[id number] Output: Urine Amount (Catheter) 450 / 450 450 / 450 Indwelling Urethral Catheter 450 / 450 450 / 450 Gastric Drainage 0 / 0 Right Nare 0 / 0 Other: Date of Last Bowel Movement 03/03/18 03/03/18 # Bowel Movements 0 Result Diagrams: 03/04/18 17:50 03/04/18 11:05 Laboratory Results: Laboratory Results - last 24 hr 03/02/18 03/03/18 03/03/18 11:22 16:40 16:40 WBC RBC Hgb Hct MCV MCH MCHC RDW Plt Count MPV Prelim Diff (Auto) Neut % (Auto) Lymph % (Auto) [place] % (Auto) Eos % (Auto) Baso % (Auto) Neut # (Auto) Lymph # (Auto) [place] # (Auto) Eos # (Auto) Baso # (Auto) WBC Differential Seg Neuts % (Manual) Band Neuts % (Manual) Lymphocytes % (Manual) Monocytes % (Manual) Abs Neuts (Manual) Differential Comment Platelet Estimate Platelet Morphology RBC Morphology Hematology Comments PT INR APTT PT Normal Plasma Immed 10.2 PT Normal Plasma 1 Hr 10.3 PT Pat/Norm 1:4 Immed 10.5 PT Pat/Norm 1:1 Immed 11.4 PT Pat/Norm 1:1 1h 37c 11.9 H PT Pat/Norm 4:1 Immed 12.7 H PT Patient Plasma Immed 15.0 H PT Mix Interpretation PTT Normal Plasma Immed 26.4 PTT Normal Plasma 1 Hr 27.7 PTT Pat/Norm 1:4 Immed 26.3 PTT Pat/Norm 1:1 Immed 27.0 PTT Pat/Norm 1:1 1h 37c 31.2 PTT Pat/Norm 4:1 Immed 28.9 PTT Patient Plsma Immed 31.7 PTT Mix Interpretation Fibrinogen Factor Inhibitor Screen Sodium Potassium Chloride Carbon Dioxide Anion Gap BUN Creatinine Estimated GFR POC Glucose Random Glucose Lactic Acid Calcium Prot Corrected Calcium Total Bilirubin AST ALT Alkaline Phosphatase Total Protein Albumin Peritoneal RBC Periton Nuc Cells Periton Neutrophils Periton Lymphocytes Peritoneal Monocytes Periton Histiocytes Peritoneal Tot Protein Peritoneal Albumin Peritoneal LDH Peritoneal Glucose Peritoneal Amylase Blood Type Antibody Screen MTS Gel Crossmatch See Detail 03/03/18 03/03/18 03/03/18 19:00 23:00 23:00 WBC RBC Hgb 13.2 Hct 37.2 L MCV MCH MCHC RDW Plt Count MPV Prelim Diff (Auto) Neut % (Auto) Lymph % (Auto) [place] % (Auto) Eos % (Auto) Baso % (Auto) Neut # (Auto) Lymph # (Auto) [place] # (Auto) Eos # (Auto) Baso # (Auto) WBC Differential Seg Neuts % (Manual) Band Neuts % (Manual) Lymphocytes % (Manual) Monocytes % (Manual) Abs Neuts (Manual) Differential Comment Platelet Estimate Platelet Morphology RBC Morphology Hematology Comments PT INR APTT PT Normal Plasma Immed PT Normal Plasma 1 Hr PT Pat/Norm 1:4 Immed PT Pat/Norm 1:1 Immed PT Pat/Norm 1:1 1h 37c PT Pat/Norm 4:1 Immed PT Patient Plasma Immed PT Mix Interpretation PTT Normal Plasma Immed PTT Normal Plasma 1 Hr PTT Pat/Norm 1:4 Immed PTT Pat/Norm 1:1 Immed PTT Pat/Norm 1:1 1h 37c PTT Pat/Norm 4:1 Immed PTT Patient Plsma Immed PTT Mix Interpretation Fibrinogen Factor Inhibitor Screen Sodium Potassium 3.4 L Chloride Carbon Dioxide Anion Gap BUN Creatinine Estimated GFR POC Glucose Random Glucose Lactic Acid 1.0 Calcium Prot Corrected Calcium Total Bilirubin AST ALT Alkaline Phosphatase Total Protein Albumin Peritoneal RBC Periton Nuc Cells Periton Neutrophils Periton Lymphocytes Peritoneal Monocytes Periton Histiocytes Peritoneal Tot Protein Peritoneal Albumin Peritoneal LDH Peritoneal Glucose Peritoneal Amylase Blood Type Antibody Screen MTS Gel Crossmatch 03/03/18 03/04/18 03/04/18 23:39 04:40 04:40 WBC RBC Hgb 13.4 Hct 39.2 MCV MCH MCHC RDW Plt Count MPV Prelim Diff (Auto) Neut % (Auto) Lymph % (Auto) [place] % (Auto) Eos % (Auto) Baso % (Auto) Neut # (Auto) Lymph # (Auto) [place] # (Auto) Eos # (Auto) Baso # (Auto) WBC Differential Seg Neuts % (Manual) Band Neuts % (Manual) Lymphocytes % (Manual) Monocytes % (Manual) Abs Neuts (Manual) Differential Comment Platelet Estimate Platelet Morphology RBC Morphology Hematology Comments PT INR APTT 29.9 PT Normal Plasma Immed PT Normal Plasma 1 Hr PT Pat/Norm 1:4 Immed PT Pat/Norm 1:1 Immed PT Pat/Norm 1:1 1h 37c PT Pat/Norm 4:1 Immed PT Patient Plasma Immed PT Mix Interpretation PTT Normal Plasma Immed PTT Normal Plasma 1 Hr PTT Pat/Norm 1:4 Immed PTT Pat/Norm 1:1 Immed PTT Pat/Norm 1:1 1h 37c PTT Pat/Norm 4:1 Immed PTT Patient Plsma Immed PTT Mix Interpretation Fibrinogen Factor Inhibitor Screen Sodium Potassium Chloride Carbon Dioxide Anion Gap BUN Creatinine Estimated GFR POC Glucose 87 Random Glucose Lactic Acid Calcium Prot Corrected Calcium Total Bilirubin AST ALT Alkaline Phosphatase Total Protein Albumin Peritoneal RBC Periton Nuc Cells Periton Neutrophils Periton Lymphocytes Peritoneal Monocytes Periton Histiocytes Peritoneal Tot Protein Peritoneal Albumin Peritoneal LDH Peritoneal Glucose Peritoneal Amylase Blood Type Antibody Screen MTS Gel Crossmatch 03/04/18 03/04/18 03/04/18 05:21 11:05 11:05 WBC 9.9 RBC 4.38 L Hgb Cancelled 13.0 Hct Cancelled 38.7 L MCV 88.2 D MCH 29.8 MCHC 33.7 RDW 15.6 Plt Count 44 L MPV 10.1 Prelim Diff (Auto) Slide review pending Neut % (Auto) 79.9 H Lymph % (Auto) 13.9 [place] % (Auto) 5.8 Eos % (Auto) 0.1 Baso % (Auto) 0.3 Neut # (Auto) 7.9 H Lymph # (Auto) 1.4 [place] # (Auto) 0.6 Eos # (Auto) 0.0 Baso # (Auto) 0.0 WBC Differential Manual diff final Seg Neuts % (Manual) 64 Band Neuts % (Manual) 26 H Lymphocytes % (Manual) 5 L Monocytes % (Manual) 5 Abs Neuts (Manual) 8.9 H Differential Comment . Platelet Estimate Low L Platelet Morphology Normal RBC Morphology Normal Hematology Comments Cancelled PT INR APTT PT Normal Plasma Immed PT Normal Plasma 1 Hr PT Pat/Norm 1:4 Immed PT Pat/Norm 1:1 Immed PT Pat/Norm 1:1 1h 37c PT Pat/Norm 4:1 Immed PT Patient Plasma Immed PT Mix Interpretation PTT Normal Plasma Immed PTT Normal Plasma 1 Hr PTT Pat/Norm 1:4 Immed PTT Pat/Norm 1:1 Immed PTT Pat/Norm 1:1 1h 37c PTT Pat/Norm 4:1 Immed PTT Patient Plsma Immed PTT Mix Interpretation Fibrinogen Factor Inhibitor Screen Sodium Potassium Chloride Carbon Dioxide Anion Gap BUN Creatinine Estimated GFR POC Glucose 88 Random Glucose Lactic Acid Calcium Prot Corrected Calcium Total Bilirubin AST ALT Alkaline Phosphatase Total Protein Albumin Peritoneal RBC Periton Nuc Cells Periton Neutrophils Periton Lymphocytes Peritoneal Monocytes Periton Histiocytes Peritoneal Tot Protein Peritoneal Albumin Peritoneal LDH Peritoneal Glucose Peritoneal Amylase Blood Type Antibody Screen MTS Gel Crossmatch 03/04/18 03/04/18 03/04/18 11:05 11:05 13:00 WBC RBC Hgb 12.9 L Hct 38.2 L MCV MCH MCHC RDW Plt Count MPV Prelim Diff (Auto) Neut % (Auto) Lymph % (Auto) [place] % (Auto) Eos % (Auto) Baso % (Auto) Neut # (Auto) Lymph # (Auto) [place] # (Auto) Eos # (Auto) Baso # (Auto) WBC Differential Seg Neuts % (Manual) Band Neuts % (Manual) Lymphocytes % (Manual) Monocytes % (Manual) Abs Neuts (Manual) Differential Comment Platelet Estimate Platelet Morphology RBC Morphology Hematology Comments PT 13.1 H INR 1.3 APTT 30.0 PT Normal Plasma Immed PT Normal Plasma 1 Hr PT Pat/Norm 1:4 Immed PT Pat/Norm 1:1 Immed PT Pat/Norm 1:1 1h 37c PT Pat/Norm 4:1 Immed PT Patient Plasma Immed PT Mix Interpretation PTT Normal Plasma Immed PTT Normal Plasma 1 Hr PTT Pat/Norm 1:4 Immed PTT Pat/Norm 1:1 Immed PTT Pat/Norm 1:1 1h 37c PTT Pat/Norm 4:1 Immed PTT Patient Plsma Immed PTT Mix Interpretation Fibrinogen 213 L Factor Inhibitor Screen Sodium 145 Potassium 3.9 Chloride 110 H Carbon Dioxide 29.8 Anion Gap 5 BUN 19 H Creatinine 0.92 Estimated GFR Greater than 89 POC Glucose Random Glucose 86 Lactic Acid Calcium 6.8 L* Prot Corrected Calcium 8.0 L Total Bilirubin 2.0 H AST 528 H ALT 361 H Alkaline Phosphatase 92 Total Protein 4.8 L Albumin 2.1 L Peritoneal RBC Periton Nuc Cells Periton Neutrophils Periton Lymphocytes Peritoneal Monocytes Periton Histiocytes Peritoneal Tot Protein Peritoneal Albumin Peritoneal LDH Peritoneal Glucose Peritoneal Amylase Blood Type Antibody Screen MTS Gel Crossmatch 03/04/18 03/04/18 03/04/18 13:31 16:19 16:19 WBC RBC Hgb Hct MCV MCH MCHC RDW Plt Count MPV Prelim Diff (Auto) Neut % (Auto) Lymph % (Auto) [place] % (Auto) Eos % (Auto) Baso % (Auto) Neut # (Auto) Lymph # (Auto) [place] # (Auto) Eos # (Auto) Baso # (Auto) WBC Differential Seg Neuts % (Manual) Band Neuts % (Manual) Lymphocytes % (Manual) Monocytes % (Manual) Abs Neuts (Manual) Differential Comment Platelet Estimate Platelet Morphology RBC Morphology Hematology Comments PT INR APTT PT Normal Plasma Immed PT Normal Plasma 1 Hr PT Pat/Norm 1:4 Immed PT Pat/Norm 1:1 Immed PT Pat/Norm 1:1 1h 37c PT Pat/Norm 4:1 Immed PT Patient Plasma Immed PT Mix Interpretation PTT Normal Plasma Immed PTT Normal Plasma 1 Hr PTT Pat/Norm 1:4 Immed PTT Pat/Norm 1:1 Immed PTT Pat/Norm 1:1 1h 37c PTT Pat/Norm 4:1 Immed PTT Patient Plsma Immed PTT Mix Interpretation Fibrinogen Factor Inhibitor Screen Sodium Potassium Chloride Carbon Dioxide Anion Gap BUN Creatinine Estimated GFR POC Glucose Random Glucose Lactic Acid Calcium Prot Corrected Calcium Total Bilirubin AST ALT Alkaline Phosphatase Total Protein Albumin Peritoneal RBC 2500 H Periton Nuc Cells 301 H Periton Neutrophils 12 Periton Lymphocytes 85 Peritoneal Monocytes 2 Periton Histiocytes 1 Peritoneal Tot Protein 0.8 Peritoneal Albumin 0.5 Peritoneal LDH 134 Peritoneal Glucose 90 Peritoneal Amylase 27 Blood Type A Negative Antibody Screen Negative MTS Gel Crossmatch See Detail 03/04/18 03/04/18 17:50 18:36 WBC RBC Hgb 12.3 L Hct 35.0 L MCV MCH MCHC RDW Plt Count MPV Prelim Diff (Auto) Neut % (Auto) Lymph % (Auto) [place] % (Auto) Eos % (Auto) Baso % (Auto) Neut # (Auto) Lymph # (Auto) [place] # (Auto) Eos # (Auto) Baso # (Auto) WBC Differential Seg Neuts % (Manual) Band Neuts % (Manual) Lymphocytes % (Manual) Monocytes % (Manual) Abs Neuts (Manual) Differential Comment Platelet Estimate Platelet Morphology RBC Morphology Hematology Comments PT INR APTT PT Normal Plasma Immed PT Normal Plasma 1 Hr PT Pat/Norm 1:4 Immed PT Pat/Norm 1:1 Immed PT Pat/Norm 1:1 1h 37c PT Pat/Norm 4:1 Immed PT Patient Plasma Immed PT Mix Interpretation PTT Normal Plasma Immed PTT Normal Plasma 1 Hr PTT Pat/Norm 1:4 Immed PTT Pat/Norm 1:1 Immed PTT Pat/Norm 1:1 1h 37c PTT Pat/Norm 4:1 Immed PTT Patient Plsma Immed PTT Mix Interpretation Fibrinogen Factor Inhibitor Screen Sodium Potassium Chloride Carbon Dioxide Anion Gap BUN Creatinine Estimated GFR POC Glucose 84 Random Glucose Lactic Acid Calcium Prot Corrected Calcium Total Bilirubin AST ALT Alkaline Phosphatase Total Protein Albumin Peritoneal RBC Periton Nuc Cells Periton Neutrophils Periton Lymphocytes Peritoneal Monocytes Periton Histiocytes Peritoneal Tot Protein Peritoneal Albumin Peritoneal LDH Peritoneal Glucose Peritoneal Amylase Blood Type Antibody Screen MTS Gel Crossmatch Culture Results: Microbiology 03/02/18 15:00 Gram Stain - Final Sputum - Endotracheal Sputum Culture - Final Rare growth normal respiratory tyrese 03/01/18 21:45 Aerobic Blood Culture - Preliminary Blood - Peripheral No growth in 3 days Anaerobic Blood Culture - Preliminary No growth in 3 days 03/01/18 21:40 Aerobic Blood Culture - Preliminary Blood - Peripheral No growth in 3 days Anaerobic Blood Culture - Preliminary No growth in 3 days 03/02/18 15:00 Influenza Types A,B Antigen - Final Nasal Aspirate Negative for FLU A and B antigen Infection due to influenza A or B cannot be ruled out since the antigen present in the sample may be below the detection limit of the test. Medications: Active Medications Generic Name Dose Route Start Last Admin Trade Name Freq PRN Reason Stop Dose Admin Albuterol 1 ampul 03/02/18 00:00 03/04/18 16:14 Duoneb Neb (Josr) NEB 1 ampul Q4HR NEB JOSR Administration Aminocaproic Acid 1,000 mg 03/03/18 00:00 03/04/18 17:48 Amicar Liq NG/OG Not Given Q6HR JOSR Artificial Tears 1 drop 03/02/18 09:00 03/04/18 17:48 Tears Naturale Opth Drops EACH EYE 1 drop TID JOSR Administration Chlorhexidine Gluconate 15 ml 03/02/18 08:00 03/04/18 09:24 Peridex 0.12% Oral Kit OROPHARYNG 15 ml BID@08,1999 JOSR Administration Chlorhexidine Gluconate 3 pack 03/02/18 04:00 03/04/18 04:05 Chlorhexidine 2% Cloth TOPICAL 03/07/18 03:59 3 pack DAILY@0400 JOSR Administration Norepinephrine Bitartrate 4 mg in 250 mls @ 7.5 mls/hr 03/01/18 22:46 19:56 Levophed-Dextrose 4 Mg/250 Ml Drip IV.SIG Infused TITRATE PRN Titration Per Protocol Protocol 2 MCG/MIN Midazolam HCl 50 mg in 50 mls @ 2 mls/hr 03/01/18 23:49 03/04/18 17:47 Versed Inj IV.CONT 9 mg/hr TITRATE PRN 9 mls/hr Per Protocol Administration Protocol 2 MG/HR Fentanyl 2,500 mcg in 250 mls @ 5 mls/hr 03/01/18 23:48 03/04/18 09:25 Fentanyl 10 Mcg/Ml Premix Drip IV.SIG 250 mcg/hr TITRATE PRN 25 mls/hr Per Protocol Administration Protocol 50 MCG/HR Sodium Chloride 1,000 mls @ 42 mls/hr 03/03/18 00:00 03/03/18 23:13 Ns Inj IV.CONT Not Given .[id number] [facility] Propofol 1,000 mg in 100 mls @ 2.177 mls/hr 03/01/18 23:48 03/04/18 12:24 Diprivan 1000 Mg/100 Ml Inj IV.CONT 20 mcg/kg/min TITRATE PRN 8.71 mls/hr Per Protocol Administration Protocol 5 MCG/KG/MIN Octreotide Acetate 500 mcg/ 500.5 mls @ 50.05 mls/hr 03/01/18 23:45 03/04/18 10:34 Sodium Chloride IV.CONT 50 mcg/hr .Q10H JOSR 50.05 mls/hr Administration 50 MCG/HR Potassium Chloride 40 meq in 100 mls @ 25 mls/hr 03/01/18 23:55 03/03/18 18: 44 Kcl 40 Meq Premix Inj IV.SIG Infused Q2H PRN Infusion For Potassium 2.8 - 3.2 mEq/L Potassium Chloride 40 meq in 100 mls @ 25 mls/hr 03/01/18 23:55 03/04/18 00: 46 Kcl 40 Meq Premix Inj IV.SIG Infused UNSCH PRN Infusion For Potassium 3.3 - 3.5 mEq/L Ceftriaxone Sodium 1,000 mg/ 100 mls @ 200 mls/hr 03/02/18 03:00 03/04/18 04: 07 Sodium Chloride IV.SIG Infused Q24H JOSR Infusion Dextrose 1,000 mls @ 30 mls/hr 03/02/18 18:30 03/04/18 06:24 D10w Inj IV.SIG 30 mls/hr .Q24H JOSR Infusion Insulin Human Regular 0 units 03/02/18 12:00 03/04/18 17:48 Novolin R Correctional Sugar Inj SQ Not Given Q6HR [facility] Protocol Miscellaneous Medication 1 each 03/02/18 00:00 03/04/18 16:13 OROPHARYNG 1 each 0000,0400,1200,1600 JOSR Administration Phytonadione 10 mg 03/03/18 17:00 03/04/18 09:25 Vitamin K Inj SQ 03/05/18 09:01 10 mg DAILY JOSR Administration Senna/Docusate Sodium 1 tab 03/02/18 09:00 03/04/18 09:24 Yolanda-Colace PO Not Given BID JOSR Sodium Chloride 2 ml 03/02/18 09:00 03/04/18 09:24 Ns Flush IV.FLUSH 2 ml BID JOSR Administration Objective Remarks: GENERAL: Well-nourished, well-developed patient. SKIN: Warm and dry. Extensive tattoo work, no petechia or bruising noted. Fantasma tube in place. Helmet in place. HEAD: Normocephalic. Intubated and sedated. EYES: No scleral icterus. No injection or drainage. NECK: Supple, trachea midline. No JVD or lymphadenopathy. LYMPHATIC: No adenopathy. CARDIOVASCULAR: Regular rate and rhythm without murmurs. RESPIRATORY: Breath sounds equal bilaterally. No accessory muscle use. GASTROINTESTINAL: Abdomen soft distended fluid wave. EXTREMITIES: No cyanosis, or bilateral lower extremity edema. Right neck central line with some oozing under the dressing. Right arm IV site is clear. MUSCULOSKELETAL: Adequate muscle tone. NEUROLOGICAL: No obvious focal deficit. Awake, alert, and oriented x3. PSYCHIATRIC: Appropriate mood and affect; insight and judgment normal. Assessment/Plan - Plan 33-year-old man with history of alcoholic liver disease, hepatitis C leading to cirrhosis. He was admitted with massive upper GI bleed. He was transfused multiple blood products. Hematology oncology was consulted for the coagulopathy. 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 Mixing study corrects. No inhibitor was identified. Lupus anticoagulant is still pending. Empiric vitamin K is offered. Anti-fibribronolytics could be tried. The underlying problem is the deficiency in his synthetic function of the liver. Transfusions are being coordinated by sr. manager marketing. Hematology will follow peripherally.
[2018-03-04] MEDS: Dextrose 10% in Water Inj 1,000 ML IV.SIG SCH (19:39)
[2018-03-04] MEDS: Sod Chloride 0.9% Inj 1,000 ML IV.CONT SCH (23:31)
[2018-03-05] MEDS: AMINOCAPROIC ACID 250 MG/ML NG/OG SCH ×4 (00:36→17:06)
[2018-03-05] MEDS: Insulin NovoLIN Regular Correctional Sugar Inj SQ SCH ×4 (00:37→17:45)
[2018-03-05] MEDS: Oral Hygiene Kit OROPHARYNG SCH ×4 (00:37→16:24)
[2018-03-05] MEDS: Propofol 1000 mg/100 ml Inj 1,000 MG/100 ML BOTTLE IV.CONT PRN ×3 (02:50→21:02)
[2018-03-05] MEDS: Chlorhexidine Gluconate 2% 1 Pack (2 Cloths) TOPICAL SCH (03:53)
[2018-03-05 04:48] LABS: Baso # (Auto) 0.1 th/mm3 (0.0-0.2); Baso % (Auto) 0.8 % (0.0-2.0); Eos # (Auto) 0.1 th/mm3 (0.0-0.4); Eos % (Auto) 1.3 % (0.0-4.0); Hemoglobin 12.2 gm/dL (13.0-17.0); Lymph # (Auto) 1.7 th/mm3 (1.0-4.8); Lymph % (Auto) 21.8 % (9.0-44.0); Mean Corpuscular HGB Conc 33.7 % (32.0-36.0); Mean Corpuscular Hemoglobin 29.6 pg (27.0-34.0); Mean Corpuscular Volume 87.9 fL (80.0-100.0); Mean Platelet Volume 10.3 fL (7.0-11.0); Mono # (Auto) 0.6 th/mm3 (0.0-0.9); Mono % (Auto) 7.4 % (0.0-8.0); Neut # (Auto) 5.2 th/mm3 (1.8-7.7); Neut % (Auto) 68.7 % (16.0-70.0); Platelet Count 45 th/mm3 (150-450); Red Cell Distribution Width 15.5 % (11.6-17.2); White Blood Count 7.6 th/mm3 (4.0-11.0)
[2018-03-05] MEDS: Midazolam 50 MG/50 ML Inj 50 MG/50 ML BAG IV.CONT PRN ×3 (05:00→19:01)
[2018-03-05 05:05] LABS: Alanine Aminotransferase 293 U/L (12-78); Albumin 2.1 g/dL (3.4-5.0); Alkaline Phosphatase 80 U/L (45-117); Anion Gap 7 meq/L (5-15); Aspartate Aminotransferase 356 U/L (15-37); Blood Urea Nitrogen 18 mg/dL (7-18); Calcium 6.8 mg/dL (8.5-10.1); Carbon Dioxide 28.4 meq/L (21.0-32.0); Chloride 112 meq/L (98-107); Glomerular Filtration Rate Greater Than 89 mL/min (>89); Glucose,Random 78 mg/dL (74-106); Potassium 3.7 meq/L (3.5-5.1); Sodium 147 meq/L (136-145); Total Protein 4.7 g/dL (6.4-8.2)
[2018-03-05] MEDS: Octreotide Inj 500 MCG in Sodium Chlor 0.9% Inj 500 ML IV.CONT SCH ×2 (06:45→16:22)
[2018-03-05] MEDS: fentaNYL 10 mcg/mL Premix Drip 2,500 MCG/250 ML BAG IV.SIG PRN ×2 (06:46→14:28)
[2018-03-05 07:43] LABS: Blast Cells 1 % (0-0); Lymphocytes 10 % (9-44); Monocytes 5 % (0-8); Platelet Morphology Normal (Normal)
[2018-03-05] MEDS: Phytonadione Inj 10 MG/ML Vial SQ SCH (08:23)
[2018-03-05] MEDS: Artificial Tears Opth Drops 15 ML Bottle EACH EYE SCH ×3 (08:23→17:07)
[2018-03-05] MEDS: Chlorhexidine 0.12% Oral Kit 15 ML UDC OROPHARYNG SCH ×2 (08:24→20:42)
[2018-03-05] MEDS: Senna/Docusate Sodium 8.6/50 MG Tablet PO SCH ×2 (08:24→20:42)
--- NOTE | 2018-03-05 09:19 | XR ---
EXAM DATE: 03/05/2018 9:10 AM EST AGE/SEX: 33 years / Male INDICATIONS: Respiratory failure. CLINICAL DATA: This is the patient's subsequent encounter. Patient reports that signs and symptoms h ave been present for 4 - 6 days and indicates a pain score of Nonresponsive. MEDICAL/SURGICAL HISTORY: . Afib. Hepatitis C. HTN. Liver cirrhosis None. COMPARISON: [facility] [place], CHEST 1V SINGLE AP, 03/03/2018. . FINDINGS: Lines and tubes have not changed. There is worsening mixed interstitial and alveolar process bilatera lly since the prior examination to a significant degree. Focal consolidation is difficult to exclude in the lung bases. Slight cardiomegaly is again seen. CONCLUSION: Worsening parenchymal process bilaterally probably worsening pulmonary edema. Pneumonia is difficult to exclude. Electronically signed by: Spencer Hart MD 03/05/2018 9:18 AM EST
--- NOTE | 2018-03-05 10:53 | P.PNCC ---
Subjective Subjective Remarks/Hospital Course: Hospital Course: This is a 33-year-old male. Date of admission 03/01/2018. Past medical includes hepatitis C, known liver cirrhosis, esophageal varices patient was actually admitted 02/14 with upper GI bleed. Patient had 3 columns of 2-3 grade esophageal varices that evaluated Sean with banding.. Patient presents to [facility] 03/01 witha chief complaint of hematemesis. EMS reports that his initial blood pressure on their arrival was in the 70s-80s with a heart rate in the 150s. They state that he has put out copious amounts of hematemesis. Patient states that this began approximately 30 minutes prior to arrival. He does admit to fever and chills as well with abdominal pain. No headache no recent trauma. No chest pain or shortness of breath. Patient was emergently intubated and central line was placed in the femoral region. Hemoglobin is noted to be 5.2. Emergently transfused 3 units PRBCs. GI was consulted to try to perform an upper endoscopy revealed copious amounts of blood in the esophagus. Epinephrine injection was attempted. Fantasma tube was placed. IR was called. Repeat laboratories revealed significant coagulopathy with elevated INR/PTT and low fibrinogen. Unable to do intervention. State they do not tips at this facility. Patient needs to be stabilized prior to any transfer. Remains intubated on low-dose norepinephrine drip. Currently receiving K Centra, FFP and cryoprecipitate. Subjective: 03/02: remains in active hemorrhagic shock. bleeding continues to be uncontrolled. massive transfusion is ongoing. Totals currently: 22 prbc 16 FFP 4 plt 4 Cryo off levophed, but still actively bleeding, suctioning bright red blood from mouth and having bright red bloody bowel movements. Fantasma remains in place. lactate 11. remains acidotic. 03/03: remains intubated. bleeding has appeared to slow, but continues at a slow ooze. hgb now stable. platelets continue to drop in a combination of consumption and splenic sequestration. off vasopressors. likely plan for repeat EGD today. lactate is clearing, albeit slowly. totals: 29 prbc 16 FFP 9 plt 4 cryo 1mg factor 7 2 doses of KCentra 2 doses of Vit K 03/04: Remains sedated, orally intubated on mechanical ventilation. Fantasma tube remains in place. 03/05: Remains sedated, orally intubated on mechanical ventilation. Fantasma tube remains in place though it has been deflated. Hemoglobin remained stable at 12. 3.5 L of ascitic fluid drained with ultrasound guidance yesterday, fluid appears transudative. Following paracentesis FiO2 was decreased from 100- 50% and now is currently at 70%. Clinically significant volume overload persists with generalized anasarca scrotal edema. Initiating Lasix to mobilize fluids. Has been maintaining blood pressure for the last 48 hours. Objective Vital Signs / I&O: Vital Signs 03/04/18 11:01 03/04/18 11:02 03/04/18 12:00 Temperature 100.2 F H Pulse Rate 77 79 Respiratory Rate 20 20 20 Blood Pressure 126/63 Pulse Oximetry 94 L 93 L 03/04/18 12:30 03/04/18 13:00 03/04/18 13:30 Temperature Pulse Rate 79 77 77 Respiratory Rate 20 20 20 Blood Pressure 122/60 123/68 124/62 Pulse Oximetry 92 L 92 L 92 L 03/04/18 14:00 03/04/18 14:30 03/04/18 15:00 Temperature Pulse Rate 76 75 75 Respiratory Rate 20 20 Blood Pressure 126/60 124/60 123/57 L Pulse Oximetry 92 L 93 L 92 L 03/04/18 15:30 03/04/18 16:00 03/04/18 16:19 Temperature 97.4 F L Pulse Rate 74 73 95 H Respiratory Rate 20 20 Blood Pressure 122/59 L 120/56 L Pulse Oximetry 92 L 98 95 03/04/18 16:30 03/04/18 17:00 03/04/18 17:30 Temperature Pulse Rate 74 75 73 Respiratory Rate Blood Pressure 119/58 L 121/61 123/62 Pulse Oximetry 95 94 L 94 L 03/04/18 18:00 03/04/18 18:30 03/04/18 19:00 Temperature Pulse Rate 73 73 72 Respiratory Rate 20 Blood Pressure 122/58 L 122/57 L 121/57 L Pulse Oximetry 92 L 91 L 91 L 03/04/18 19:25 03/04/18 19:30 03/04/18 20:00 Temperature 100.2 F H Pulse Rate 71 73 75 Respiratory Rate 20 20 20 Blood Pressure 113/65 118/57 L Pulse Oximetry 91 L 90 L 92 L 03/04/18 20:30 03/04/18 21:00 03/04/18 21:30 Temperature Pulse Rate 73 72 70 Respiratory Rate 20 20 20 Blood Pressure 121/57 L 120/57 L 121/56 L Pulse Oximetry 92 L 92 L 92 L 03/04/18 22:00 03/04/18 22:30 03/04/18 23:00 Temperature Pulse Rate 69 69 69 Respiratory Rate 20 20 20 Blood Pressure 120/57 L 121/57 L 120/55 L Pulse Oximetry 92 L 92 L 91 L 03/04/18 23:28 03/04/18 23:30 03/05/18 00:00 Temperature 100.5 F H Pulse Rate 68 68 72 Respiratory Rate 20 20 20 Blood Pressure 120/56 L 117/57 L Pulse Oximetry 91 L 90 L 03/05/18 00:30 03/05/18 01:00 03/05/18 01:08 Temperature 100.9 F H Pulse Rate 70 69 Respiratory Rate 20 20 20 Blood Pressure 115/57 L 115/56 L Pulse Oximetry 92 L 92 L 92 L 03/05/18 01:30 03/05/18 02:00 03/05/18 02:30 Temperature Pulse Rate 68 68 67 Respiratory Rate 20 20 20 Blood Pressure 115/56 L 115/57 L 118/58 L Pulse Oximetry 92 L 92 L 92 L 03/05/18 03:00 03/05/18 03:28 03/05/18 03:30 Temperature Pulse Rate 67 67 67 Respiratory Rate 20 20 20 Blood Pressure 118/56 L 116/58 L Pulse Oximetry 92 L 92 L 03/05/18 04:00 03/05/18 04:37 03/05/18 06:00 Temperature Pulse Rate 68 65 Respiratory Rate 20 20 Blood Pressure 117/57 L Pulse Oximetry 91 L 92 L 03/05/18 07:31 03/05/18 08:00 03/05/18 10:00 Temperature 98.8 F Pulse Rate 63 66 64 Respiratory Rate 20 20 Blood Pressure 117/56 L Pulse Oximetry 92 L 92 L Intake & Output 03/04/18 03/05/18 03/05/18 18:59 06:59 18:59 Intake Total 533.8 / 533.8 2401.0 / 2401.0 Output Total 450 / 450 850 / 850 Balance 83.8 / 83.8 1551.0 / 1551.0 Weight 107.7 kg Intake: IV 533.8 / 533.8 2401.0 / 2401.0 Versed Inj 50 mg In 50 ml @ 2 100 / 100 100 / 100 MG/HR 2 mls/hr IV.CONT TITRATE PRN Rx#:[id number] SandoSTATIN Inj 500 MCG In NS 175.5 / 175.5 1001.0 / 1001.0 Inj 500 ML @ 50 MCG/HR 50.05 mls/hr IV.CONT .Q10H [facility] Rx#: [id number] Diprivan 1000 mg/100 ml Inj 1, 200 / 200 000 mg In 100 ml @ 5 MCG/KG/MIN 2.177 mls/hr IV.CONT TITRATE PRN Rx#:[id number] Flexbumin 25% Inj 100 ML @ 60 100 / 100 mls/hr IV.SIG ONCE ONE Rx#: [id number] D10W Inj 1,000 ML @ 30 mls/hr 500 / 500 IV.SIG .Q24H [facility] Rx#:[id number] Rocephin Inj 1,000 MG In NS Inj 100 / 100 100 ML @ 200 mls/hr IV.SIG Q24H [facility] Rx#:[id number] fentaNYL 10 mcg/mL Premix Drip 158.3 / 158.3 500 / 500 2,500 mcg In 250 ml @ 50 MCG/HR 5 mls/hr IV.SIG TITRATE PRN Rx #:[id number] Output: Urine Amount (Catheter) 450 / 450 850 / 850 Indwelling Urethral Catheter 450 / 450 850 / 850 Gastric Drainage 0 / 0 Right Nare 0 / 0 Other: Date of Last Bowel Movement 03/03/18 03/03/18 03/03/18 # Bowel Movements 0 Result Diagrams: 03/05/18 04:30 03/05/18 04:30 Objective Remarks: GENERAL: Young male, lying in bed, critically ill, intubated, sedated. HEENT: Normocephalic. Atraumatic. Pupils equal, round, reactive, conjugate. Mucous membranes are moist. There is a Fantasma tube in place with a helmet in place. NECK: Trachea is midline. There is no JVD. Right IJ introducer sheath in place , site is clean dry and intact CHEST: PRVC mode. FiO2 70%. Equal chest rise. CARDIOVASCULAR: Tachycardic rate, regular rhythm. Sinus. ABDOMEN: Soft, nontender, distended with a positive fluid wave. No guarding. MUSCULOSKELETAL: Pulses 2+. 1+ peripheral edema. There is a right femoral triple-lumen catheter in place, site is clean dry and intact. NEUROLOGICAL: RASS -3. Withdraws to pain x4. Does not follow commands. 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 He remains very critically ill. Continue resuscitative efforts. If bleeding controlled, will need to start to mobilize fluid. Off pathway and remains critically ill. Neuro/Psych: Acute toxic metabolic encephalopathy Hepatic encephalopathy Midazolam/fentanyl/propofol drips for sedation/analgesia while intubated Goal of RASS -2 Daily sedation vacation ammonia elevated, but no way to administer lactulose at the present time. trend ammonia levels. start lactulose/rifaximin when able. CV: Acute hemorrhagic shock-resolved Lactic acidosis- slowly resolving Off pressors Serial lactates until cleared KVO IV fluids Starting Lasix 40 mg IV every 12 hourly on 03/05 to mobilize fluid in view of significant volume overload. Resp: Acute hypoxic and hypercarbic respiratory failure PRVC ventilation Albuterol/ipratropium aerosols every 4 hours with albuterol aerosols every 2 hours as needed dyspnea Ventilator bundle On 70 % FiO2, probable TRALI, fluid overload, shunting, restriction from large ascites. FiO2 requirement significantly decreased immediately after paracentesis done on 03/04 with removal of 3.5 L of ascitic fluid Too unstable for weaning trials. GI: Upper GI bleed secondary to esophageal varices Liver cirrhosis Hepatitis C Elevated ammonia Status post upper endoscopy by Dr. Moeller on prior admission. Injected epinephrine. s/p repeat EGD 03/02: with variceal banding. Fantasma tube is in place. Transfer for TIPS when stable pantoprazole drip at 8 mg an hour and octreotide drips at 50 mcg/hr trend ammonia. Unable to provide lactulose or rifaximin with Fantasma tube in place/acute bleed Large ascites noted, status post US guided paracentesis 03/04 with significant improvement in respiratory status after drainage of 3.5 L of ascitic fluid which appears transudative-cultures sent. : Acute kidney injury Raygoza cath catheter NICKOLAS secondary to hypovolemic shock Endo: Sliding scale insulin Accu-Cheks to maintain euglycemia Renal: Creatinine currently within normal limit Accurate I's and O's Monitor urine output Heme: Acute blood loss anemia Acute coagulopathy leukocytosis Thrombocytopenia DIC totals: 29 prbc 16 FFP 9 plt 4 cryo 1mg factor 7 2 doses of KCentra 2 doses of Vit K keep plt > 50k or 100k if active massive bleeding. serial CBC, coag goal hgb > 8 while active hemorrhage, INR < 1.4, fibrinogen > 150, plt > 100k. ID: ceftriaxone 1 g every 24 hours for upper GI bleed MSK: PT evaluate and treat FEN: Acute hypernatremia Replace electrolytes as clinically indicated Access -Utilize peripheral IV. Remove right femoral CVL on 03/05. Maintain right IJ sheath. Prophylaxis -GI -pantoprazole drip -DVT -SCD/pharmacological prophylaxis contraindicated with acute bleed Consult palliative care to assist with deciding goals of therapy. D/W [employer]. This patient remains critically ill with one or more organ systems which are or may become a threat to life. I have spent in excess of 35 minutes discontinuously in the care and management of this patient. This time is exclusive of procedures, and includes, but is not limited to, evaluation of the patient, review of the medical record, discussions with family, consultants, nursing staff, or respiratory therapy, and documentation in the medical record.
--- NOTE | 2018-03-05 16:56 | P.PNGI ---
Subjective Interval history: Continues in the intensive care setting sedation, minimal response to painful stimuli Fantasma deflated and clamped awaiting nutritional feedings to initiate today Status post paracentesis 03/04/2018 with 3-1/2 L removed <Ema Higuera - Last Filed: 03/05/18 16:47> Physical Exam Vital signs: Vital Signs 03/04/18 17:00 03/04/18 17:30 03/04/18 18:00 Temperature Pulse Rate 75 73 73 Respiratory Rate Blood Pressure 121/61 123/62 122/58 L Pulse Oximetry 94 L 94 L 92 L 03/04/18 18:30 03/04/18 19:00 03/04/18 19:25 Temperature Pulse Rate 73 72 71 Respiratory Rate 20 20 Blood Pressure 122/57 L 121/57 L Pulse Oximetry 91 L 91 L 91 L 03/04/18 19:30 03/04/18 20:00 03/04/18 20:30 Temperature 100.2 F H Pulse Rate 73 75 73 Respiratory Rate 20 20 20 Blood Pressure 113/65 118/57 L 121/57 L Pulse Oximetry 90 L 92 L 92 L 03/04/18 21:00 03/04/18 21:30 03/04/18 22:00 Temperature Pulse Rate 72 70 69 Respiratory Rate 20 20 20 Blood Pressure 120/57 L 121/56 L 120/57 L Pulse Oximetry 92 L 92 L 92 L 03/04/18 22:30 03/04/18 23:00 03/04/18 23:28 Temperature Pulse Rate 69 69 68 Respiratory Rate 20 20 20 Blood Pressure 121/57 L 120/55 L Pulse Oximetry 92 L 91 L 03/04/18 23:30 03/05/18 00:00 03/05/18 00:30 Temperature 100.5 F H 100.9 F H Pulse Rate 68 72 70 Respiratory Rate 20 20 20 Blood Pressure 120/56 L 117/57 L 115/57 L Pulse Oximetry 91 L 90 L 92 L 03/05/18 01:00 03/05/18 01:08 03/05/18 01:30 Temperature Pulse Rate 69 68 Respiratory Rate 20 20 20 Blood Pressure 115/56 L 115/56 L Pulse Oximetry 92 L 92 L 92 L 03/05/18 02:00 03/05/18 02:30 03/05/18 03:00 Temperature Pulse Rate 68 67 67 Respiratory Rate 20 20 20 Blood Pressure 115/57 L 118/58 L 118/56 L Pulse Oximetry 92 L 92 L 92 L 03/05/18 03:28 03/05/18 03:30 03/05/18 04:00 Temperature Pulse Rate 67 67 68 Respiratory Rate 20 20 20 Blood Pressure 116/58 L 117/57 L Pulse Oximetry 92 L 91 L 03/05/18 04:37 03/05/18 06:00 03/05/18 07:31 Temperature Pulse Rate 65 63 Respiratory Rate 20 20 Blood Pressure Pulse Oximetry 92 L 92 L 03/05/18 08:00 03/05/18 10:00 03/05/18 11:14 Temperature 98.8 F Pulse Rate 66 64 66 Respiratory Rate 20 20 Blood Pressure 117/56 L Pulse Oximetry 92 L 92 L 03/05/18 12:00 03/05/18 14:00 03/05/18 14:56 Temperature 100.9 F H Pulse Rate 67 67 66 Respiratory Rate 20 20 Blood Pressure 123/60 Pulse Oximetry 94 L 03/05/18 16:00 Temperature 99.5 F Pulse Rate 68 Respiratory Rate 20 Blood Pressure 123/60 Pulse Oximetry 91 L Intake & Output 03/04/18 03/05/18 03/05/18 18:59 06:59 18:59 Intake Total 533.8 / 533.8 2401.0 / 2401.0 900.5 / 900.5 Output Total 450 / 450 850 / 850 Balance 83.8 / 83.8 1551.0 / 1551.0 900.5 / 900.5 Weight 107.7 kg Intake: IV 533.8 / 533.8 2401.0 / 2401.0 900.5 / 900.5 Versed Inj 50 mg In 50 ml @ 2 100 / 100 100 / 100 50 / 50 MG/HR 2 mls/hr IV.CONT TITRATE PRN Rx#:[id number] SandoSTATIN Inj 500 MCG In NS 175.5 / 175.5 1001.0 / 1001.0 500.5 / 500.5 Inj 500 ML @ 50 MCG/HR 50.05 mls/hr IV.CONT .Q10H [facility] Rx#: [id number] Diprivan 1000 mg/100 ml Inj 1, 200 / 200 100 / 100 000 mg In 100 ml @ 5 MCG/KG/MIN 2.177 mls/hr IV.CONT TITRATE PRN Rx#:[id number] Flexbumin 25% Inj 100 ML @ 60 100 / 100 mls/hr IV.SIG ONCE ONE Rx#: [id number] D10W Inj 1,000 ML @ 30 mls/hr 500 / 500 IV.SIG .Q24H [facility] Rx#:[id number] Rocephin Inj 1,000 MG In NS Inj 100 / 100 100 ML @ 200 mls/hr IV.SIG Q24H [facility] Rx#:[id number] fentaNYL 10 mcg/mL Premix Drip 158.3 / 158.3 500 / 500 250 / 250 2,500 mcg In 250 ml @ 50 MCG/HR 5 mls/hr IV.SIG TITRATE PRN Rx #:[id number] Output: Urine Amount (Catheter) 450 / 450 850 / 850 Indwelling Urethral Catheter 450 / 450 850 / 850 Gastric Drainage 0 / 0 Right Nare 0 / 0 Other: Date of Last Bowel Movement 03/03/18 03/03/18 03/05/18 # Bowel Movements 0 - Constitutional obtunded - Routine HEENT Exam Head: Present: normocephalic ENT: Present: mucous membranes moist - Routine Neck Exam Present: supple - Routine Respiratory Exam Present: accessory muscle use (No obvious wheezing, rhonchi noted), patient mechanically ventilated - Routine Cardiovascular Exam Present: S1 - Routine Abdominal Exam Present: distended (Round, soft bowel sounds, taut,) - Urinary Catheter Management Indwelling Urethral Catheter Cath placed during this visit: no <Ema Higuera - Last Filed: 03/05/18 16:47> Vital signs: Vital Signs 03/04/18 19:25 03/04/18 19:30 03/04/18 20:00 Temperature 100.2 F H Pulse Rate 71 73 75 Respiratory Rate 20 20 20 Blood Pressure 113/65 118/57 L Pulse Oximetry 91 L 90 L 92 L 03/04/18 20:30 03/04/18 21:00 03/04/18 21:30 Temperature Pulse Rate 73 72 70 Respiratory Rate 20 20 20 Blood Pressure 121/57 L 120/57 L 121/56 L Pulse Oximetry 92 L 92 L 92 L 03/04/18 22:00 03/04/18 22:30 03/04/18 23:00 Temperature Pulse Rate 69 69 69 Respiratory Rate 20 20 20 Blood Pressure 120/57 L 121/57 L 120/55 L Pulse Oximetry 92 L 92 L 91 L 03/04/18 23:28 03/04/18 23:30 03/05/18 00:00 Temperature 100.5 F H Pulse Rate 68 68 72 Respiratory Rate 20 20 20 Blood Pressure 120/56 L 117/57 L Pulse Oximetry 91 L 90 L 03/05/18 00:30 03/05/18 01:00 03/05/18 01:08 Temperature 100.9 F H Pulse Rate 70 69 Respiratory Rate 20 20 20 Blood Pressure 115/57 L 115/56 L Pulse Oximetry 92 L 92 L 92 L 03/05/18 01:30 03/05/18 02:00 03/05/18 02:30 Temperature Pulse Rate 68 68 67 Respiratory Rate 20 20 20 Blood Pressure 115/56 L 115/57 L 118/58 L Pulse Oximetry 92 L 92 L 92 L 03/05/18 03:00 03/05/18 03:28 03/05/18 03:30 Temperature Pulse Rate 67 67 67 Respiratory Rate 20 20 20 Blood Pressure 118/56 L 116/58 L Pulse Oximetry 92 L 92 L 03/05/18 04:00 03/05/18 04:37 03/05/18 06:00 Temperature Pulse Rate 68 65 Respiratory Rate 20 20 Blood Pressure 117/57 L Pulse Oximetry 91 L 92 L 03/05/18 07:31 03/05/18 08:00 03/05/18 10:00 Temperature 98.8 F Pulse Rate 63 66 64 Respiratory Rate 20 20 Blood Pressure 117/56 L Pulse Oximetry 92 L 92 L 03/05/18 11:14 03/05/18 12:00 03/05/18 14:00 Temperature 100.9 F H Pulse Rate 66 67 67 Respiratory Rate 20 20 Blood Pressure 123/60 Pulse Oximetry 92 L 94 L 03/05/18 14:56 03/05/18 16:00 03/05/18 17:33 Temperature 99.5 F Pulse Rate 66 68 Respiratory Rate 20 20 20 Blood Pressure 123/60 Pulse Oximetry 91 L 92 L 03/05/18 18:00 Temperature Pulse Rate 68 Respiratory Rate Blood Pressure Pulse Oximetry Intake & Output 03/05/18 03/05/18 03/06/18 06:59 18:59 06:59 Intake Total 2401.0 / 2401.0 900.5 / 900.5 50 / 50 Output Total 850 / 850 1610 / 1610 Balance 1551.0 / 1551.0 -709.5 / -709.5 50 / 50 Weight 107.7 kg Intake: IV 2401.0 / 2401.0 900.5 / 900.5 50 / 50 Versed Inj 50 mg In 50 ml @ 2 100 / 100 50 / 50 50 / 50 MG/HR 2 mls/hr IV.CONT TITRATE PRN Rx#:[id number] SandoSTATIN Inj 500 MCG In NS 1001.0 / 1001.0 500.5 / 500.5 Inj 500 ML @ 50 MCG/HR 50.05 mls/hr IV.CONT .Q10H [facility] Rx#: [id number] Diprivan 1000 mg/100 ml Inj 1, 200 / 200 100 / 100 000 mg In 100 ml @ 5 MCG/KG/MIN 2.177 mls/hr IV.CONT TITRATE PRN Rx#:[id number] D10W Inj 1,000 ML @ 30 mls/hr 500 / 500 IV.SIG .Q24H [facility] Rx#:[id number] Rocephin Inj 1,000 MG In NS Inj 100 / 100 100 ML @ 200 mls/hr IV.SIG Q24H [facility] Rx#:[id number] fentaNYL 10 mcg/mL Premix Drip 500 / 500 250 / 250 2,500 mcg In 250 ml @ 50 MCG/HR 5 mls/hr IV.SIG TITRATE PRN Rx #:[id number] Output: Urine Amount (Catheter) 850 / 850 1550 / 1550 Condom 1550 / 1550 Indwelling Urethral Catheter 850 / 850 Gastric Drainage 60 / 60 Right Nare 60 / 60 Other: Date of Last Bowel Movement 03/03/18 03/05/18 # Bowel Movements 0 # Incontinent Bowel Movements 1 - Urinary Catheter Management Indwelling Urethral Catheter Cath placed during this visit: no Condom Cath placed during this visit: no <Lennie Moeller - Last Filed: 03/05/18 19:18> Results - Labs CBC & Chem 7: 03/05/18 04:30 03/05/18 04:30 Laboratory Results - last 24 hr 03/04/18 03/04/18 03/04/18 16:19 16:19 17:50 WBC RBC Hgb 12.3 L Hct 35.0 L MCV MCH MCHC RDW Plt Count MPV Prelim Diff (Auto) Neut % (Auto) Lymph % (Auto) [place] % (Auto) Eos % (Auto) Baso % (Auto) Neut # (Auto) Lymph # (Auto) [place] # (Auto) Eos # (Auto) Baso # (Auto) WBC Differential Seg Neuts % (Manual) Band Neuts % (Manual) Lymphocytes % (Manual) Monocytes % (Manual) Basophils % (Manual) Blast Cells % (Manual) Abs Neuts (Manual) Differential Comment Platelet Estimate Platelet Morphology Sodium Potassium Chloride Carbon Dioxide Anion Gap BUN Creatinine Estimated GFR POC Glucose Random Glucose Calcium Prot Corrected Calcium Total Bilirubin AST ALT Alkaline Phosphatase Total Protein Albumin Peritoneal RBC 2500 H Periton Nuc Cells 301 H Periton Neutrophils 12 Periton Lymphocytes 85 Peritoneal Monocytes 2 Periton Histiocytes 1 Peritoneal Tot Protein 0.8 Peritoneal Albumin 0.5 Peritoneal LDH 134 Peritoneal Glucose 90 Peritoneal Amylase 27 03/04/18 03/04/18 03/05/18 18:36 23:29 04:30 WBC 7.6 RBC 4.10 L Hgb 12.2 L Hct 36.0 L MCV 87.9 MCH 29.6 MCHC 33.7 RDW 15.5 Plt Count 45 L MPV 10.3 Prelim Diff (Auto) Slide review pending Neut % (Auto) 68.7 Lymph % (Auto) 21.8 [place] % (Auto) 7.4 Eos % (Auto) 1.3 Baso % (Auto) 0.8 Neut # (Auto) 5.2 Lymph # (Auto) 1.7 [place] # (Auto) 0.6 Eos # (Auto) 0.1 Baso # (Auto) 0.1 WBC Differential Manual diff final Seg Neuts % (Manual) 67 Band Neuts % (Manual) 16 H Lymphocytes % (Manual) 10 Monocytes % (Manual) 5 Basophils % (Manual) 1 Blast Cells % (Manual) 1 H Abs Neuts (Manual) 6.3 Differential Comment . Platelet Estimate Low L Platelet Morphology Normal Sodium Potassium Chloride Carbon Dioxide Anion Gap BUN Creatinine Estimated GFR POC Glucose 84 78 Random Glucose Calcium Prot Corrected Calcium Total Bilirubin AST ALT Alkaline Phosphatase Total Protein Albumin Peritoneal RBC Periton Nuc Cells Periton Neutrophils Periton Lymphocytes Peritoneal Monocytes Periton Histiocytes Peritoneal Tot Protein Peritoneal Albumin Peritoneal LDH Peritoneal Glucose Peritoneal Amylase 03/05/18 03/05/18 04:30 12:19 WBC RBC Hgb Hct MCV MCH MCHC RDW Plt Count MPV Prelim Diff (Auto) Neut % (Auto) Lymph % (Auto) [place] % (Auto) Eos % (Auto) Baso % (Auto) Neut # (Auto) Lymph # (Auto) [place] # (Auto) Eos # (Auto) Baso # (Auto) WBC Differential Seg Neuts % (Manual) Band Neuts % (Manual) Lymphocytes % (Manual) Monocytes % (Manual) Basophils % (Manual) Blast Cells % (Manual) Abs Neuts (Manual) Differential Comment Platelet Estimate Platelet Morphology Sodium 147 H Potassium 3.7 Chloride 112 H Carbon Dioxide 28.4 Anion Gap 7 BUN 18 Creatinine 0.86 Estimated GFR Greater than 89 POC Glucose 88 Random Glucose 78 Calcium 6.8 L* Prot Corrected Calcium 8.1 L Total Bilirubin 2.4 H AST 356 H ALT 293 H Alkaline Phosphatase 80 Total Protein 4.7 L Albumin 2.1 L Peritoneal RBC Periton Nuc Cells Periton Neutrophils Periton Lymphocytes Peritoneal Monocytes Periton Histiocytes Peritoneal Tot Protein Peritoneal Albumin Peritoneal LDH Peritoneal Glucose Peritoneal Amylase Microbiology 03/04/18 16:19 Fluid - Peritoneal fluid Gram Stain - Final 03/04/18 16:19 Fluid - Peritoneal fluid Body Fluid Culture - Preliminary No growth in 24 hours 03/01/18 21:45 Blood - Peripheral Aerobic Blood Culture - Preliminary No growth in 4 days 03/01/18 21:45 Blood - Peripheral Anaerobic Blood Culture - Preliminary No growth in 4 days 03/01/18 21:40 Blood - Peripheral Aerobic Blood Culture - Preliminary No growth in 4 days 03/01/18 21:40 Blood - Peripheral Anaerobic Blood Culture - Preliminary No growth in 4 days - Imaging Impressions Chest X-Ray 03/05/18 07:28 CONCLUSION: Worsening parenchymal process bilaterally probably worsening pulmonary edema. Pneumonia is difficult to exclude. <Ema Higuera - Last Filed: 03/05/18 16:47> - Labs CBC & Chem 7: 03/05/18 04:30 03/05/18 04:30 Laboratory Results - last 24 hr 03/04/18 03/05/18 03/05/18 23:29 04:30 04:30 WBC 7.6 RBC 4.10 L Hgb 12.2 L Hct 36.0 L MCV 87.9 MCH 29.6 MCHC 33.7 RDW 15.5 Plt Count 45 L MPV 10.3 Prelim Diff (Auto) Slide review pending Neut % (Auto) 68.7 Lymph % (Auto) 21.8 [place] % (Auto) 7.4 Eos % (Auto) 1.3 Baso % (Auto) 0.8 Neut # (Auto) 5.2 Lymph # (Auto) 1.7 [place] # (Auto) 0.6 Eos # (Auto) 0.1 Baso # (Auto) 0.1 WBC Differential Manual diff final Seg Neuts % (Manual) 67 Band Neuts % (Manual) 16 H Lymphocytes % (Manual) 10 Monocytes % (Manual) 5 Basophils % (Manual) 1 Blast Cells % (Manual) 1 H Abs Neuts (Manual) 6.3 Differential Comment . Platelet Estimate Low L Platelet Morphology Normal Sodium 147 H Potassium 3.7 Chloride 112 H Carbon Dioxide 28.4 Anion Gap 7 BUN 18 Creatinine 0.86 Estimated GFR Greater than 89 POC Glucose 78 Random Glucose 78 Calcium 6.8 L* Prot Corrected Calcium 8.1 L Total Bilirubin 2.4 H AST 356 H ALT 293 H Alkaline Phosphatase 80 Total Protein 4.7 L Albumin 2.1 L 03/05/18 03/05/18 12:19 17:16 WBC RBC Hgb Hct MCV MCH MCHC RDW Plt Count MPV Prelim Diff (Auto) Neut % (Auto) Lymph % (Auto) [place] % (Auto) Eos % (Auto) Baso % (Auto) Neut # (Auto) Lymph # (Auto) [place] # (Auto) Eos # (Auto) Baso # (Auto) WBC Differential Seg Neuts % (Manual) Band Neuts % (Manual) Lymphocytes % (Manual) Monocytes % (Manual) Basophils % (Manual) Blast Cells % (Manual) Abs Neuts (Manual) Differential Comment Platelet Estimate Platelet Morphology Sodium Potassium Chloride Carbon Dioxide Anion Gap BUN Creatinine Estimated GFR POC Glucose 88 103 Random Glucose Calcium Prot Corrected Calcium Total Bilirubin AST ALT Alkaline Phosphatase Total Protein Albumin Microbiology 03/04/18 16:19 Fluid - Peritoneal fluid Gram Stain - Final 03/04/18 16:19 Fluid - Peritoneal fluid Body Fluid Culture - Preliminary No growth in 24 hours 03/01/18 21:45 Blood - Peripheral Aerobic Blood Culture - Preliminary No growth in 4 days 03/01/18 21:45 Blood - Peripheral Anaerobic Blood Culture - Preliminary No growth in 4 days 03/01/18 21:40 Blood - Peripheral Aerobic Blood Culture - Preliminary No growth in 4 days 03/01/18 21:40 Blood - Peripheral Anaerobic Blood Culture - Preliminary No growth in 4 days - Imaging Impressions Chest X-Ray 03/05/18 07:28 CONCLUSION: Worsening parenchymal process bilaterally probably worsening pulmonary edema. Pneumonia is difficult to exclude. <Lennie Moeller - Last Filed: 03/05/18 19:18> Assessment and Plan - Plan - Massive hemorrhagic GI bleed Has received massive transfusion including RBC, FFP, Plts, adn cryoprecipitate . S/P EGD on 03/02/18 1. Large amount of blood in stomach fresh blood in esophagus -arterial looking-could not be washed ulcers from previous banding site seen-possible source of bleeding epinephrine 6 cc -injected large amount of fresh blood Edel tube placed 2. Retroflexed views revealed large amount of blood IR for angiogram consulted stat or possible TIPS, angiogram. Repeat pt/inr, fibrinogen suggested severe coagulopathy, possible DIC. evaluated patient , was decided to hold off on procedures due to sever coagulopathy - Liver cirrhosis secondary to hep-C and alcohol abuse 03/04/2018 Upper GI bleed secondary to esophageal varices Status post EGD on 03/02/2018 with variceal banding Fantasma tube in place. Hemoglobin 12.9 hematocrit 38.2. INR 1.3.Currently on pantoprazole drip, octreotide drip. 03/05/2018 current hemoglobin 12.2 normal WBC count 7.6. Patient remains in the intensive care setting with mechanical intubation, Fantasma tube which is now deflated, and plan for tube feeds nutrihep, pending today. PPI drip continues. Mother in the room supportive care given. No obvious bleeding and hemoglobin appears normal for now. Continue to monitor hemoglobin, noted palliative care is to visit family for goals of care, due to patient's multiple comorbidities which include liver cirrhosis hepatitis C alcohol abuse esophageal varices risk for bleeding/. Prognosis poor Plan Fantasma NG tube deflated plans for nutrihep Monitor labs special attention hemoglobin and any obvious bright red bleeding/ GI bleed This patient has been seen by myself and Dr. Moeller and this note is written on her behalf Lasix IV continue for now Protonix drip, octreotide drip No lactulose Antibiotics per attending Patient was seen per myself and Dr. Moeller, note was written on her behalf <Kalen,Ema M - Last Filed: 03/05/18 16:47> - Attending Attestation seen, examined agree with above cta when able egd/banding in 1-2 days <Lennie Moeller - Last Filed: 03/05/18 19:18>
--- NOTE | 2018-03-05 17:09 | P.DIET ---
Nutritional Evaluation Type of nutrition evaluation: initial Nutrition consult regarding: Tube Feeding Screening comments: 03/05 NPO x3 days Objective - Diagnosis GI bleed - Objective Body Mass Index: 33.1 % IBW: 138 (IBW = 172lb) Body Weight Used for Calculations: IBW Energy Needs - Lower Range (kCal/kg): 22 Energy Needs - Upper Range (kCal/kg): 28 Lower Limit kCal/kg (kCals): 1,720 Upper Limit kCal/kg (kCals): 2,190 Lower Limit Protein Factor (Grams per Kg): 1.0 Upper Limit Protein Factor (Grams per Kg): 1.5 Lower Protein Needs (Protein): 78 Upper Protein Needs (Protein): 117 Fluid Factor (ml/kg): 25 Estimated Fluid Needs (ml): 1,955 Dietitian Reviewed in Medical Record: Current diet, Curent medications, Intake & Output, Labs, Medical history, Tube feeding Diet Order: NPO Speech Therapy Recommendations: No Objective Comments: PMH: AFIB hep C, HTN, liver cirrhosis, substance abuse Labs: Ca+6.8 Assessment Assessment: Pt currently at nutritional risk r/t NPO x3 days and in need of TFing. Pt is sedated w/ fentanyl/versed/propofol, orally intubated, and on mech vent. Pt receiving Nutrihep TF @ 30mL/hr. RD to recommend NutriHep TF goal rate @ 55mL/ hr w/ Beneprotein TID to provide 2055kcal, 71g of protein, and 1003mL of free water to meet pts assessed nutritional needs. Additional kcal (1.1kcal/mL) will be provided by propofol when running. Continue to monitor TF tolerance. Labs reviewed. Dietitian following. Recommendations: 1. RD to recommend NutriHep TF goal rate @ 55mL/hr w/ Beneprotein TID to meet pts assessed nutritional needs 2. Additional kcal (1.1kcal/mL) will be provided by propofol when running 3. Continue to monitor TF tolerance 4. Dietitian following Dietitian to Monitor: Lab values, Intake & Output, Tube feeding tolerance, Weight change, Medical course
[2018-03-05] MEDS: rifAXIMin 550 MG Tablet PO SCH (20:42)
[2018-03-06] MEDS: AMINOCAPROIC ACID 250 MG/ML NG/OG SCH ×4 (00:26→18:01)
[2018-03-06] MEDS: fentaNYL 10 mcg/mL Premix Drip 2,500 MCG/250 ML BAG IV.SIG PRN ×3 (00:28→21:00)
[2018-03-06] MEDS: Oral Hygiene Kit OROPHARYNG SCH ×5 (02:08→23:35)
[2018-03-06] MEDS: Insulin NovoLIN Regular Correctional Sugar Inj SQ SCH ×4 (02:09→18:00)
[2018-03-06] MEDS: Sod Chloride 0.9% Inj 1,000 ML IV.CONT SCH (02:12)
[2018-03-06] MEDS: Midazolam 50 MG/50 ML Inj 50 MG/50 ML BAG IV.CONT PRN ×3 (02:16→21:01)
[2018-03-06] MEDS: Octreotide Inj 500 MCG in Sodium Chlor 0.9% Inj 500 ML IV.CONT SCH ×4 (02:25→23:32)
[2018-03-06] MEDS: Chlorhexidine Gluconate 2% 1 Pack (2 Cloths) TOPICAL SCH (05:18)
[2018-03-06] MEDS: Dextrose 10% in Water Inj 1,000 ML IV.SIG SCH ×2 (06:57→18:01)
[2018-03-06 07:14] LABS: Baso % (Auto) 0.5 % (0.0-2.0); Eos # (Auto) 0.3 th/mm3 (0.0-0.4); Eos % (Auto) 2.8 % (0.0-4.0); Hematocrit 36.8 % (39.0-51.0); Hemoglobin 12.5 gm/dL (13.0-17.0); Lymph # (Auto) 1.7 th/mm3 (1.0-4.8); Lymph % (Auto) 18.5 % (9.0-44.0); Mean Corpuscular Volume 88.4 fL (80.0-100.0); Mean Platelet Volume 9.6 fL (7.0-11.0); Mono % (Auto) 11.2 % (0.0-8.0); Neut # (Auto) 6.1 th/mm3 (1.8-7.7); Platelet Count 54 th/mm3 (150-450); Red Blood Count 4.17 mil/mm3 (4.50-5.90); White Blood Count 9.1 th/mm3 (4.0-11.0)
[2018-03-06 07:30] LABS: Alanine Aminotransferase 207 U/L (12-78); Alkaline Phosphatase 88 U/L (45-117); Anion Gap 6 meq/L (5-15); Aspartate Aminotransferase 166 U/L (15-37); Blood Urea Nitrogen 21 mg/dL (7-18); Carbon Dioxide 28.2 meq/L (21.0-32.0); Chloride 112 meq/L (98-107); Glomerular Filtration Rate Greater Than 89 mL/min (>89); Glucose,Random 91 mg/dL (74-106); Potassium 3.9 meq/L (3.5-5.1); Sodium 146 meq/L (136-145); Total Protein 5.1 g/dL (6.4-8.2)
[2018-03-06] MEDS: Chlorhexidine 0.12% Oral Kit 15 ML UDC OROPHARYNG SCH ×2 (08:10→23:34)
[2018-03-06] MEDS: rifAXIMin 550 MG Tablet PO SCH ×2 (08:11→21:15)
[2018-03-06] MEDS: Senna/Docusate Sodium 8.6/50 MG Tablet PO SCH ×2 (08:11→21:15)
[2018-03-06] MEDS: Artificial Tears Opth Drops 15 ML Bottle EACH EYE SCH ×3 (08:11→18:00)
[2018-03-06 09:36] LABS: Eosinophils 2 % (0-4); Lymphocytes 7 % (9-44); Monocytes 3 % (0-8)
[2018-03-06 09:37] LABS: Platelet Morphology Normal (Normal); RBC Morphology Normal (Normal)
--- NOTE | 2018-03-06 11:59 | P.PNGI ---
Subjective Interval history: Pt intubated and sedated RN at bedside Pt has Fantasma, but deflated and being used as NG Currently to tube feeding, running at 20 mL/hr Seems to be tolerating No stool output Not on pressors <Isela Hernandez - Last Filed: 03/06/18 11:43> Physical Exam Vital signs: Vital Signs 03/05/18 12:00 03/05/18 12:30 03/05/18 13:00 Temperature 100.9 F H Pulse Rate 67 67 66 Respiratory Rate 20 20 20 Blood Pressure 123/60 122/58 L 121/58 L Pulse Oximetry 94 L 93 L 92 L 03/05/18 13:30 03/05/18 14:00 03/05/18 14:30 Temperature Pulse Rate 66 67 67 Respiratory Rate 20 21 20 Blood Pressure 119/58 L 126/72 121/59 L Pulse Oximetry 91 L 92 L 90 L 03/05/18 14:56 03/05/18 15:00 03/05/18 15:30 Temperature Pulse Rate 66 68 70 Respiratory Rate 20 20 20 Blood Pressure 122/57 L 124/58 L Pulse Oximetry 90 L 91 L 03/05/18 16:00 03/05/18 16:30 03/05/18 17:00 Temperature 99.5 F Pulse Rate 68 68 67 Respiratory Rate 20 20 20 Blood Pressure 123/60 123/58 L 122/56 L Pulse Oximetry 91 L 91 L 92 L 03/05/18 17:30 03/05/18 17:33 03/05/18 18:00 Temperature Pulse Rate 67 68 Respiratory Rate 20 20 20 Blood Pressure 125/62 127/61 Pulse Oximetry 93 L 92 L 93 L 03/05/18 18:30 03/05/18 19:00 03/05/18 19:26 Temperature Pulse Rate 68 69 68 Respiratory Rate 20 20 20 Blood Pressure 127/62 128/65 Pulse Oximetry 94 L 95 94 L 03/05/18 19:30 03/05/18 20:00 03/05/18 20:30 Temperature 99.5 F Pulse Rate 68 70 70 Respiratory Rate 20 20 20 Blood Pressure 126/62 127/58 L 128/59 L Pulse Oximetry 94 L 93 L 94 L 03/05/18 21:00 03/05/18 21:30 03/05/18 22:00 Temperature Pulse Rate 71 71 70 Respiratory Rate 20 20 20 Blood Pressure 127/58 L 121/56 L 120/58 L Pulse Oximetry 91 L 86 L 90 L 03/05/18 22:30 03/05/18 23:00 03/05/18 23:15 Temperature Pulse Rate 68 67 97 H Respiratory Rate 20 20 20 Blood Pressure 119/58 L 119/58 L Pulse Oximetry 92 L 92 L 03/05/18 23:30 03/06/18 00:00 03/06/18 00:30 Temperature 99.1 F Pulse Rate 69 72 70 Respiratory Rate 20 20 20 Blood Pressure 119/56 L 125/58 L 122/56 L Pulse Oximetry 93 L 93 L 92 L 03/06/18 01:00 03/06/18 01:19 03/06/18 01:30 Temperature Pulse Rate 70 69 Respiratory Rate 20 20 20 Blood Pressure 124/60 122/58 L Pulse Oximetry 91 L 91 L 91 L 03/06/18 02:00 03/06/18 02:09 03/06/18 02:30 Temperature Pulse Rate 69 68 Respiratory Rate 20 22 20 Blood Pressure 119/55 L 119/59 L Pulse Oximetry 91 L 91 L 03/06/18 03:00 03/06/18 03:30 03/06/18 04:00 Temperature 98.6 F Pulse Rate 67 67 66 Respiratory Rate 20 20 20 Blood Pressure 121/58 L 120/58 L 122/59 L Pulse Oximetry 92 L 91 L 92 L 03/06/18 04:30 03/06/18 04:37 03/06/18 05:00 Temperature Pulse Rate 67 66 Respiratory Rate 20 20 20 Blood Pressure 123/57 L 122/60 Pulse Oximetry 92 L 92 L 93 L 03/06/18 05:30 03/06/18 06:00 03/06/18 06:30 Temperature Pulse Rate 66 67 67 Respiratory Rate 20 20 20 Blood Pressure 127/65 123/60 129/60 Pulse Oximetry 95 94 L 95 03/06/18 07:00 03/06/18 07:30 03/06/18 07:47 Temperature Pulse Rate 66 65 Respiratory Rate 20 20 20 Blood Pressure 125/59 L 123/59 L Pulse Oximetry 94 L 97 95 03/06/18 08:00 03/06/18 08:30 03/06/18 09:00 Temperature 98.6 F Pulse Rate 66 65 64 Respiratory Rate 20 20 20 Blood Pressure 124/62 126/64 122/61 Pulse Oximetry 94 L 95 95 03/06/18 09:57 03/06/18 10:00 Temperature Pulse Rate 63 Respiratory Rate 20 Blood Pressure Pulse Oximetry 96 Intake & Output 03/05/18 03/06/18 03/06/18 18:59 06:59 18:59 Intake Total 900.5 / 900.5 1100.9 / 1100.9 300 / 300 Output Total 1610 / 1610 1000 / 1000 Balance -709.5 / -709.5 100.9 / 100.9 300 / 300 Weight 105.1 kg Intake: IV 900.5 / 900.5 919.9 / 919.9 300 / 300 Versed Inj 50 mg In 50 ml @ 2 50 / 50 70.4 / 70.4 50 / 50 MG/HR 2 mls/hr IV.CONT TITRATE PRN Rx#:[id number] SandoSTATIN Inj 500 MCG In NS 500.5 / 500.5 500.5 / 500.5 Inj 500 ML @ 50 MCG/HR 50.05 mls/hr IV.CONT .Q10H NAVID Rx#: [id number] Diprivan 1000 mg/100 ml Inj 1, 100 / 100 99 / 99 000 mg In 100 ml @ 5 MCG/KG/MIN 2.177 mls/hr IV.CONT TITRATE PRN Rx#:[id number] fentaNYL 10 mcg/mL Premix Drip 250 / 250 250 / 250 250 / 250 2,500 mcg In 250 ml @ 50 MCG/HR 5 mls/hr IV.SIG TITRATE PRN Rx #:[id number] Tube Feeding 81 / 81 Water Bolus Amount 100 / 100 Output: Urine Amount (Catheter) 1550 / 1550 1000 / 1000 Condom 1550 / 1550 1000 / 1000 Gastric Drainage 60 / 60 Right Nare 60 / 60 Other: Date of Last Bowel Movement 03/05/18 03/05/18 # Incontinent Bowel Movements 1 - Constitutional no acute distress - Routine HEENT Exam Head: Present: normocephalic, atraumatic - Routine Respiratory Exam Present: patient mechanically ventilated - Routine Cardiovascular Exam Present: RRR - Routine Abdominal Exam Present: soft, normoactive bowel sounds, distended - Routine Skin Exam Present: dry, warm - Urinary Catheter Management Indwelling Urethral Catheter Cath placed during this visit: no Condom Cath placed during this visit: no <Isela Hernandez - Last Filed: 03/06/18 11:43> Vital signs: Vital Signs 03/05/18 20:00 03/05/18 20:30 03/05/18 21:00 Temperature 99.5 F Pulse Rate 70 70 71 Respiratory Rate 20 20 20 Blood Pressure 127/58 L 128/59 L 127/58 L Pulse Oximetry 93 L 94 L 91 L 03/05/18 21:30 03/05/18 22:00 03/05/18 22:30 Temperature Pulse Rate 71 70 68 Respiratory Rate 20 20 20 Blood Pressure 121/56 L 120/58 L 119/58 L Pulse Oximetry 86 L 90 L 92 L 03/05/18 23:00 03/05/18 23:15 03/05/18 23:30 Temperature Pulse Rate 67 97 H 69 Respiratory Rate 20 20 20 Blood Pressure 119/58 L 119/56 L Pulse Oximetry 92 L 93 L 03/06/18 00:00 03/06/18 00:30 03/06/18 01:00 Temperature 99.1 F Pulse Rate 72 70 70 Respiratory Rate 20 20 20 Blood Pressure 125/58 L 122/56 L 124/60 Pulse Oximetry 93 L 92 L 91 L 03/06/18 01:19 03/06/18 01:30 03/06/18 02:00 Temperature Pulse Rate 69 69 Respiratory Rate 20 20 20 Blood Pressure 122/58 L 119/55 L Pulse Oximetry 91 L 91 L 91 L 03/06/18 02:09 03/06/18 02:30 03/06/18 03:00 Temperature Pulse Rate 68 67 Respiratory Rate 22 20 20 Blood Pressure 119/59 L 121/58 L Pulse Oximetry 91 L 92 L 03/06/18 03:30 03/06/18 04:00 03/06/18 04:30 Temperature 98.6 F Pulse Rate 67 66 67 Respiratory Rate 20 20 20 Blood Pressure 120/58 L 122/59 L 123/57 L Pulse Oximetry 91 L 92 L 92 L 03/06/18 04:37 03/06/18 05:00 03/06/18 05:30 Temperature Pulse Rate 66 66 Respiratory Rate 20 20 20 Blood Pressure 122/60 127/65 Pulse Oximetry 92 L 93 L 95 03/06/18 06:00 03/06/18 06:30 03/06/18 07:00 Temperature Pulse Rate 67 67 66 Respiratory Rate 20 20 20 Blood Pressure 123/60 129/60 125/59 L Pulse Oximetry 94 L 95 94 L 03/06/18 07:30 03/06/18 07:47 03/06/18 08:00 Temperature 98.6 F Pulse Rate 65 66 Respiratory Rate 20 20 20 Blood Pressure 123/59 L 124/62 Pulse Oximetry 97 95 94 L 03/06/18 08:30 03/06/18 09:00 03/06/18 09:30 Temperature Pulse Rate 65 64 64 Respiratory Rate 20 20 20 Blood Pressure 126/64 122/61 120/56 L Pulse Oximetry 95 95 96 03/06/18 09:57 03/06/18 10:00 03/06/18 10:30 Temperature Pulse Rate 63 63 Respiratory Rate 20 20 20 Blood Pressure 118/59 L 117/57 L Pulse Oximetry 96 96 96 03/06/18 11:00 03/06/18 11:30 03/06/18 12:00 Temperature 98.9 F Pulse Rate 63 63 63 Respiratory Rate 20 20 20 Blood Pressure 115/59 L 119/59 L 116/55 L Pulse Oximetry 96 95 95 03/06/18 12:30 03/06/18 12:57 03/06/18 13:00 Temperature Pulse Rate 62 63 Respiratory Rate 20 20 20 Blood Pressure 115/55 L 115/59 L Pulse Oximetry 94 L 94 L 94 L 03/06/18 13:30 03/06/18 14:00 03/06/18 14:30 Temperature Pulse Rate 62 62 62 Respiratory Rate 20 20 20 Blood Pressure 117/58 L 117/56 L 116/57 L Pulse Oximetry 94 L 93 L 93 L 03/06/18 15:00 03/06/18 15:30 03/06/18 15:56 Temperature Pulse Rate 62 62 Respiratory Rate 20 20 20 Blood Pressure 116/57 L 114/55 L Pulse Oximetry 93 L 93 L 92 L 03/06/18 16:00 03/06/18 18:00 Temperature 98.9 F Pulse Rate 62 62 Respiratory Rate 20 Blood Pressure 116/59 L Pulse Oximetry 92 L Intake & Output 03/06/18 03/06/18 03/07/18 06:59 18:59 06:59 Intake Total 1100.9 / 1100.9 1147.5 / 1147.5 Output Total 1000 / 1000 1350 / 1350 Balance 100.9 / 100.9 -202.5 / -202.5 Weight 105.1 kg Intake: IV 919.9 / 919.9 900.5 / 900.5 Versed Inj 50 mg In 50 ml @ 2 70.4 / 70.4 50 / 50 MG/HR 2 mls/hr IV.CONT TITRATE PRN Rx#:[id number] SandoSTATIN Inj 500 MCG In NS 500.5 / 500.5 500.5 / 500.5 Inj 500 ML @ 50 MCG/HR 50.05 mls/hr IV.CONT .Q10H NAVID Rx#: [id number] Diprivan 1000 mg/100 ml Inj 1, 99 / 99 100 / 100 000 mg In 100 ml @ 5 MCG/KG/MIN 2.177 mls/hr IV.CONT TITRATE PRN Rx#:[id number] fentaNYL 10 mcg/mL Premix Drip 250 / 250 250 / 250 2,500 mcg In 250 ml @ 50 MCG/HR 5 mls/hr IV.SIG TITRATE PRN Rx #:[id number] Tube Feeding 81 / 81 187 / 187 Tube Irrigant 60 / 60 Water Bolus Amount 100 / 100 Output: Urine Amount (Catheter) 1000 / 1000 1350 / 1350 Condom 1000 / 1000 1350 / 1350 Other: Date of Last Bowel Movement 03/05/18 - Urinary Catheter Management Indwelling Urethral Catheter Cath placed during this visit: no Condom Cath placed during this visit: no <Lennie Moeller - Last Filed: 03/06/18 19:49> Results - Labs CBC & Chem 7: 03/06/18 06:12 03/06/18 06:12 Laboratory Results - last 24 hr 03/04/18 03/05/18 03/05/18 13:31 12:19 17:16 WBC RBC Hgb Hct MCV MCH MCHC RDW Plt Count MPV Prelim Diff (Auto) Neut % (Auto) Lymph % (Auto) [place] % (Auto) Eos % (Auto) Baso % (Auto) Neut # (Auto) Lymph # (Auto) [place] # (Auto) Eos # (Auto) Baso # (Auto) WBC Differential Seg Neuts % (Manual) Band Neuts % (Manual) Lymphocytes % (Manual) Monocytes % (Manual) Eosinophils % (Manual) Abs Neuts (Manual) Differential Comment Platelet Estimate Platelet Morphology RBC Morphology Sodium Potassium Chloride Carbon Dioxide Anion Gap BUN Creatinine Estimated GFR POC Glucose 88 103 Random Glucose Calcium Prot Corrected Calcium Total Bilirubin AST ALT Alkaline Phosphatase Total Protein Albumin MTS Gel Crossmatch See Detail 03/06/18 03/06/18 03/06/18 01:04 06:12 06:12 WBC 9.1 RBC 4.17 L Hgb 12.5 L Hct 36.8 L MCV 88.4 MCH 30.0 MCHC 34.0 RDW 16.0 Plt Count 54 L MPV 9.6 Prelim Diff (Auto) Slide review pending Neut % (Auto) 67.0 Lymph % (Auto) 18.5 [place] % (Auto) 11.2 H Eos % (Auto) 2.8 Baso % (Auto) 0.5 Neut # (Auto) 6.1 Lymph # (Auto) 1.7 [place] # (Auto) 1.0 H Eos # (Auto) 0.3 Baso # (Auto) 0.0 WBC Differential Manual diff final Seg Neuts % (Manual) 76 H Band Neuts % (Manual) 12 H Lymphocytes % (Manual) 7 L Monocytes % (Manual) 3 Eosinophils % (Manual) 2 Abs Neuts (Manual) 8.0 H Differential Comment . Platelet Estimate Low L Platelet Morphology Normal RBC Morphology Normal Sodium 146 H Potassium 3.9 Chloride 112 H Carbon Dioxide 28.2 Anion Gap 6 BUN 21 H Creatinine 0.80 Estimated GFR Greater than 89 POC Glucose 110 Random Glucose 91 Calcium 7.0 L* Prot Corrected Calcium 8.1 L Total Bilirubin 2.2 H AST 166 H ALT 207 H Alkaline Phosphatase 88 Total Protein 5.1 L Albumin 2.0 L MTS Gel Crossmatch 03/06/18 03/06/18 07:24 11:36 WBC RBC Hgb Hct MCV MCH MCHC RDW Plt Count MPV Prelim Diff (Auto) Neut % (Auto) Lymph % (Auto) [place] % (Auto) Eos % (Auto) Baso % (Auto) Neut # (Auto) Lymph # (Auto) [place] # (Auto) Eos # (Auto) Baso # (Auto) WBC Differential Seg Neuts % (Manual) Band Neuts % (Manual) Lymphocytes % (Manual) Monocytes % (Manual) Eosinophils % (Manual) Abs Neuts (Manual) Differential Comment Platelet Estimate Platelet Morphology RBC Morphology Sodium Potassium Chloride Carbon Dioxide Anion Gap BUN Creatinine Estimated GFR POC Glucose 98 100 Random Glucose Calcium Prot Corrected Calcium Total Bilirubin AST ALT Alkaline Phosphatase Total Protein Albumin MTS Gel Crossmatch Microbiology 03/01/18 21:45 Blood - Peripheral Aerobic Blood Culture - Final No growth in 5 days 03/01/18 21:45 Blood - Peripheral Anaerobic Blood Culture - Final No growth in 5 days 03/01/18 21:40 Blood - Peripheral Aerobic Blood Culture - Final No growth in 5 days 03/01/18 21:40 Blood - Peripheral Anaerobic Blood Culture - Final No growth in 5 days 03/04/18 16:19 Fluid - Peritoneal fluid Gram Stain - Final 03/04/18 16:19 Fluid - Peritoneal fluid Body Fluid Culture - Preliminary No growth in 48 hours <Isela Hernandez - Last Filed: 03/06/18 11:43> - Labs CBC & Chem 7: 03/06/18 06:12 03/06/18 06:12 Laboratory Results - last 24 hr 03/02/18 03/02/18 03/04/18 00:26 01:44 13:31 WBC RBC Hgb Hct MCV MCH MCHC RDW Plt Count MPV Prelim Diff (Auto) Neut % (Auto) Lymph % (Auto) [place] % (Auto) Eos % (Auto) Baso % (Auto) Neut # (Auto) Lymph # (Auto) [place] # (Auto) Eos # (Auto) Baso # (Auto) WBC Differential Seg Neuts % (Manual) Band Neuts % (Manual) Lymphocytes % (Manual) Monocytes % (Manual) Eosinophils % (Manual) Abs Neuts (Manual) Differential Comment Platelet Estimate Platelet Morphology RBC Morphology Sodium Potassium Chloride Carbon Dioxide Anion Gap BUN Creatinine Estimated GFR POC Glucose Random Glucose Calcium Prot Corrected Calcium Total Bilirubin AST ALT Alkaline Phosphatase Total Protein Albumin MTS Gel Crossmatch See Detail See Detail See Detail Blood Bank Comment Bld Prod Order Comment 03/06/18 03/06/18 03/06/18 01:04 06:12 06:12 WBC 9.1 RBC 4.17 L Hgb 12.5 L Hct 36.8 L MCV 88.4 MCH 30.0 MCHC 34.0 RDW 16.0 Plt Count 54 L MPV 9.6 Prelim Diff (Auto) Slide review pending Neut % (Auto) 67.0 Lymph % (Auto) 18.5 [place] % (Auto) 11.2 H Eos % (Auto) 2.8 Baso % (Auto) 0.5 Neut # (Auto) 6.1 Lymph # (Auto) 1.7 [place] # (Auto) 1.0 H Eos # (Auto) 0.3 Baso # (Auto) 0.0 WBC Differential Manual diff final Seg Neuts % (Manual) 76 H Band Neuts % (Manual) 12 H Lymphocytes % (Manual) 7 L Monocytes % (Manual) 3 Eosinophils % (Manual) 2 Abs Neuts (Manual) 8.0 H Differential Comment . Platelet Estimate Low L Platelet Morphology Normal RBC Morphology Normal Sodium 146 H Potassium 3.9 Chloride 112 H Carbon Dioxide 28.2 Anion Gap 6 BUN 21 H Creatinine 0.80 Estimated GFR Greater than 89 POC Glucose 110 Random Glucose 91 Calcium 7.0 L* Prot Corrected Calcium 8.1 L Total Bilirubin 2.2 H AST 166 H ALT 207 H Alkaline Phosphatase 88 Total Protein 5.1 L Albumin 2.0 L MTS Gel Crossmatch Blood Bank Comment Bld Prod Order Comment 03/06/18 03/06/18 03/06/18 07:24 11:36 17:02 WBC RBC Hgb Hct MCV MCH MCHC RDW Plt Count MPV Prelim Diff (Auto) Neut % (Auto) Lymph % (Auto) [place] % (Auto) Eos % (Auto) Baso % (Auto) Neut # (Auto) Lymph # (Auto) [place] # (Auto) Eos # (Auto) Baso # (Auto) WBC Differential Seg Neuts % (Manual) Band Neuts % (Manual) Lymphocytes % (Manual) Monocytes % (Manual) Eosinophils % (Manual) Abs Neuts (Manual) Differential Comment Platelet Estimate Platelet Morphology RBC Morphology Sodium Potassium Chloride Carbon Dioxide Anion Gap BUN Creatinine Estimated GFR POC Glucose 98 100 107 Random Glucose Calcium Prot Corrected Calcium Total Bilirubin AST ALT Alkaline Phosphatase Total Protein Albumin MTS Gel Crossmatch Blood Bank Comment Bld Prod Order Comment Microbiology 03/01/18 21:45 Blood - Peripheral Aerobic Blood Culture - Final No growth in 5 days 03/01/18 21:45 Blood - Peripheral Anaerobic Blood Culture - Final No growth in 5 days 03/01/18 21:40 Blood - Peripheral Aerobic Blood Culture - Final No growth in 5 days 03/01/18 21:40 Blood - Peripheral Anaerobic Blood Culture - Final No growth in 5 days 03/04/18 16:19 Fluid - Peritoneal fluid Gram Stain - Final 03/04/18 16:19 Fluid - Peritoneal fluid Body Fluid Culture - Preliminary No growth in 48 hours - Imaging Impressions Abdomen/Pelvis CTA 03/06/18 00:00 CONCLUSION: 1. The abdominal aorta, proximal celiac and superior mesenteric arteries are within normal limits. There is no evidence of active extravasation of contrast. 2. Cirrhotic liver again noted as well as splenomegaly. 3. New consolidation in both lung bases with small pleural effusions. There is moderate to large amount of ascitic fluid now noted throughout the abdomen as well as anasarca. <Lennie Moeller - Last Filed: 03/06/18 19:49> Assessment and Plan - Plan Assessment Upper GI bleeding secondary to esophageal varices S/P EGD (03/02)> large amount of blood in stomach. Fresh blood in the esophagus. Arterial lookingcould not be washed. Ulcers from previous banding site seenpossible source of bleeding, injected with epinephrine 6 mLBlakemore tube placed IR was consulted for TIPS, however this was cancelled because of labs indicative of severe coagulopathy Pt evaluated by hematology, recommending transfusion of platelets to maintain plts around 50,000. Noted that the problem is likely related to hepatic dysfunction. Fantasma deflated on 02/02 - Cirrhosis secondary to hepatitis C and EtOH abuse with complications of portal hypertension, coagulopathy, and recurrent GI bleed Hepatitis C, genotype 1 a, quant > 2 million - Ascites S/P paracentesis 03/05 --> 3.5 L of ascitic fluid drained by [facility] bedside. Fluid culture negative at 48 hours - Hyperammonemia- on Xifaxan and Lactulose Plan: Fantasma deflated, started on TF Repeat EGD with banding, possibly tomorrow if remains stable Obtain consent Turn off TF after MN Octreotide gtt Protonix gtt Monitor H/H Platelets improving CTA abd/pelvis- per RN can do today Possible need for TIPS in future, given recurrent variceal bleeding and need for paracentesis Continue Lasix Peritoneal culture pending Xifaxan Lactulose Further recommendations based on course and findings of above This patient is been seen and examined by myself and Dr. Moeller and this note is written on her behalf <Isela Hernandez - Last Filed: 03/06/18 11:43> - Attending Attestation seen, examined agree with above <Bratu,Lennie - Last Filed: 03/06/18 19:49>
[2018-03-06] MEDS: Propofol 1000 mg/100 ml Inj 1,000 MG/100 ML BOTTLE IV.CONT PRN ×2 (13:10→22:55)
--- NOTE | 2018-03-06 18:22 | CT ---
EXAM DATE: 03/06/2018 6:08 PM EST AGE/SEX: 33 years / Male INDICATIONS: GI Bleed. CLINICAL DATA: This is the patient's initial encounter. Patient reports that signs and symptoms have been present for 1 day and indicates a pain score of Nonresponsive. MEDICAL/SURGICAL HISTORY: Hepatitis C. Cirrhosis. Afib. None. RADIATION DOSE: 14.84 CTDI (mGy) COMPARISON: [facility], CT ABDOMEN & PELVIS W CONTRAST, 02/20/2018. . TECHNIQUE: Volumetric scanning was performed using a multi-row detector CT scanner during bolus infu rebel of 95 ml Omnipaque 350 (iohexol) nonionic water-soluble contrast as a single exam dose. The d duc was post processed with a variety of visualization algorithms including full volume maximum inten sity projection, multi-planar sliding thin slab reformation, curved planar reformation, and surface r endering techniques. Using automated exposure control and adjustment of the mA and/or kV according t o patient size, radiation dose was kept as low as reasonably achievable to obtain optimal diagnostic quality images. DICOM format image data is available electronically for review and comparison. FINDINGS: Abdominal Aorta: The lumen is smooth without significant narrowing or aneurysmal dilation. The pr oximal celiac and superior mesenteric arteries are patent and normal in diameter. There are solitary renal arteries bilaterally without gross abnormality. Bifurcation: Normal. Right Pelvis: The right common iliac, internal iliac, and external iliac vessels are patent without luminal irregularity. Left Pelvis: The left common iliac, internal iliac, and external iliac vessels are patent and withou t luminal irregularity. Right Thigh: The superficial femoral and profunda vessels are patent without luminal irregularity. Left Thigh: The superficial femoral and profunda vessels are patent without luminal irregularity. Right Knee: The distal femoral and popliteal arteries are patent without luminal irregularity. Left Knee: The distal femoral and popliteal arteries are patent without luminal irregularity. Right Leg: The trifurcation is intact. Left Leg: The trifurcation is intact. Consolidation is now noted in both lung bases with air bronchograms. There are small bilateral pleura l effusions. The liver remains sclerotic in appearance with lobular margins and diffuse heterogeneity . There is evidence of splenomegaly again noted. There is diffuse anasarca now noted. There is a mode rate to large amount of ascitic fluid now noted throughout the abdomen and pelvis. There is been inte rval placement of a nasogastric tube. There is evidence of cardiomegaly. The visualized portions of t he scrotum are now markedly swollen and contain a large amount of fluid. CONCLUSION: 1. The abdominal aorta, proximal celiac and superior mesenteric arteries are within normal limits. T here is no evidence of active extravasation of contrast. 2. Cirrhotic liver again noted as well as splenomegaly. 3. New consolidation in both lung bases with small pleural effusions. There is moderate to large graeme unt of ascitic fluid now noted throughout the abdomen as well as anasarca. Electronically signed by: Bridger Watson MD 03/06/2018 6:20 PM EST
--- NOTE | 2018-03-06 19:43 | P.PNCC ---
Subjective Subjective Remarks/Hospital Course: Hospital Course: This is a 33-year-old male. Date of admission 03/01/2018. Past medical includes hepatitis C, known liver cirrhosis, esophageal varices patient was actually admitted 02/14 with upper GI bleed. Patient had 3 columns of 2-3 grade esophageal varices that evaluated Sean with banding.. Patient presents to [facility] 03/01 witha chief complaint of hematemesis. EMS reports that his initial blood pressure on their arrival was in the 70s-80s with a heart rate in the 150s. They state that he has put out copious amounts of hematemesis. Patient states that this began approximately 30 minutes prior to arrival. He does admit to fever and chills as well with abdominal pain. No headache no recent trauma. No chest pain or shortness of breath. Patient was emergently intubated and central line was placed in the femoral region. Hemoglobin is noted to be 5.2. Emergently transfused 3 units PRBCs. GI was consulted to try to perform an upper endoscopy revealed copious amounts of blood in the esophagus. Epinephrine injection was attempted. Fantasma tube was placed. IR was called. Repeat laboratories revealed significant coagulopathy with elevated INR/PTT and low fibrinogen. Unable to do intervention. State they do not tips at this facility. Patient needs to be stabilized prior to any transfer. Remains intubated on low-dose norepinephrine drip. Currently receiving K Centra, FFP and cryoprecipitate. Subjective: 03/02: remains in active hemorrhagic shock. bleeding continues to be uncontrolled. massive transfusion is ongoing. Totals currently: 22 prbc 16 FFP 4 plt 4 Cryo off levophed, but still actively bleeding, suctioning bright red blood from mouth and having bright red bloody bowel movements. Fantasma remains in place. lactate 11. remains acidotic. 03/03: remains intubated. bleeding has appeared to slow, but continues at a slow ooze. hgb now stable. platelets continue to drop in a combination of consumption and splenic sequestration. off vasopressors. likely plan for repeat EGD today. lactate is clearing, albeit slowly. totals: 29 prbc 16 FFP 9 plt 4 cryo 1mg factor 7 2 doses of KCentra 2 doses of Vit K 03/04: Remains sedated, orally intubated on mechanical ventilation. Fantasma tube remains in place. 03/05: Remains sedated, orally intubated on mechanical ventilation. Fantasma tube remains in place though it has been deflated. Hemoglobin remained stable at 12. 3.5 L of ascitic fluid drained with ultrasound guidance yesterday, fluid appears transudative. Following paracentesis FiO2 was decreased from 100- 50% and now is currently at 70%. Clinically significant volume overload persists with generalized anasarca scrotal edema. Initiating Lasix to mobilize fluids. Has been maintaining blood pressure for the last 48 hours. 03/06: remains intubated and sedated. hgb stable. GI wants to wait additional 24h before repeat EGD. remains volume overloaded. Objective Vital Signs / I&O: Vital Signs 03/05/18 20:00 03/05/18 20:30 03/05/18 21:00 Temperature 37.5 C Pulse Rate 70 70 71 Respiratory Rate 20 20 20 Blood Pressure 127/58 L 128/59 L 127/58 L Pulse Oximetry 93 L 94 L 91 L 03/05/18 21:30 03/05/18 22:00 03/05/18 22:30 Temperature Pulse Rate 71 70 68 Respiratory Rate 20 20 20 Blood Pressure 121/56 L 120/58 L 119/58 L Pulse Oximetry 86 L 90 L 92 L 03/05/18 23:00 03/05/18 23:15 03/05/18 23:30 Temperature Pulse Rate 67 97 H 69 Respiratory Rate 20 20 20 Blood Pressure 119/58 L 119/56 L Pulse Oximetry 92 L 93 L 03/06/18 00:00 03/06/18 00:30 03/06/18 01:00 Temperature 37.3 C Pulse Rate 72 70 70 Respiratory Rate 20 20 20 Blood Pressure 125/58 L 122/56 L 124/60 Pulse Oximetry 93 L 92 L 91 L 03/06/18 01:19 03/06/18 01:30 03/06/18 02:00 Temperature Pulse Rate 69 69 Respiratory Rate 20 20 20 Blood Pressure 122/58 L 119/55 L Pulse Oximetry 91 L 91 L 91 L 03/06/18 02:09 03/06/18 02:30 03/06/18 03:00 Temperature Pulse Rate 68 67 Respiratory Rate 22 20 20 Blood Pressure 119/59 L 121/58 L Pulse Oximetry 91 L 92 L 03/06/18 03:30 03/06/18 04:00 03/06/18 04:30 Temperature 37.0 C Pulse Rate 67 66 67 Respiratory Rate 20 20 20 Blood Pressure 120/58 L 122/59 L 123/57 L Pulse Oximetry 91 L 92 L 92 L 03/06/18 04:37 03/06/18 05:00 03/06/18 05:30 Temperature Pulse Rate 66 66 Respiratory Rate 20 20 20 Blood Pressure 122/60 127/65 Pulse Oximetry 92 L 93 L 95 03/06/18 06:00 03/06/18 06:30 03/06/18 07:00 Temperature Pulse Rate 67 67 66 Respiratory Rate 20 20 20 Blood Pressure 123/60 129/60 125/59 L Pulse Oximetry 94 L 95 94 L 03/06/18 07:30 03/06/18 07:47 03/06/18 08:00 Temperature 37.0 C Pulse Rate 65 66 Respiratory Rate 20 20 20 Blood Pressure 123/59 L 124/62 Pulse Oximetry 97 95 94 L 03/06/18 08:30 03/06/18 09:00 03/06/18 09:30 Temperature Pulse Rate 65 64 64 Respiratory Rate 20 20 20 Blood Pressure 126/64 122/61 120/56 L Pulse Oximetry 95 95 96 03/06/18 09:57 03/06/18 10:00 03/06/18 10:30 Temperature Pulse Rate 63 63 Respiratory Rate 20 20 20 Blood Pressure 118/59 L 117/57 L Pulse Oximetry 96 96 96 03/06/18 11:00 03/06/18 11:30 03/06/18 12:00 Temperature 37.2 C Pulse Rate 63 63 63 Respiratory Rate 20 20 20 Blood Pressure 115/59 L 119/59 L 116/55 L Pulse Oximetry 96 95 95 03/06/18 12:30 03/06/18 12:57 03/06/18 13:00 Temperature Pulse Rate 62 63 Respiratory Rate 20 20 20 Blood Pressure 115/55 L 115/59 L Pulse Oximetry 94 L 94 L 94 L 03/06/18 13:30 03/06/18 14:00 03/06/18 14:30 Temperature Pulse Rate 62 62 62 Respiratory Rate 20 20 20 Blood Pressure 117/58 L 117/56 L 116/57 L Pulse Oximetry 94 L 93 L 93 L 03/06/18 15:00 03/06/18 15:30 03/06/18 15:56 Temperature Pulse Rate 62 62 Respiratory Rate 20 20 20 Blood Pressure 116/57 L 114/55 L Pulse Oximetry 93 L 93 L 92 L 03/06/18 16:00 03/06/18 18:00 Temperature 37.2 C Pulse Rate 62 62 Respiratory Rate 20 Blood Pressure 116/59 L Pulse Oximetry 92 L Intake & Output 03/06/18 03/06/18 03/07/18 06:59 18:59 06:59 Intake Total 1100.9 / 1100.9 1147.5 / 1147.5 Output Total 1000 / 1000 1350 / 1350 Balance 100.9 / 100.9 -202.5 / -202.5 Weight 105.1 kg Intake: IV 919.9 / 919.9 900.5 / 900.5 Versed Inj 50 mg In 50 ml @ 2 70.4 / 70.4 50 / 50 MG/HR 2 mls/hr IV.CONT TITRATE PRN Rx#:[id number] SandoSTATIN Inj 500 MCG In NS 500.5 / 500.5 500.5 / 500.5 Inj 500 ML @ 50 MCG/HR 50.05 mls/hr IV.CONT .Q10H [facility] Rx#: [id number] Diprivan 1000 mg/100 ml Inj 1, 99 / 99 100 / 100 000 mg In 100 ml @ 5 MCG/KG/MIN 2.177 mls/hr IV.CONT TITRATE PRN Rx#:[id number] fentaNYL 10 mcg/mL Premix Drip 250 / 250 250 / 250 2,500 mcg In 250 ml @ 50 MCG/HR 5 mls/hr IV.SIG TITRATE PRN Rx #:[id number] Tube Feeding 81 / 81 187 / 187 Tube Irrigant 60 / 60 Water Bolus Amount 100 / 100 Output: Urine Amount (Catheter) 1000 / 1000 1350 / 1350 Condom 1000 / 1000 1350 / 1350 Other: Date of Last Bowel Movement 03/05/18 Result Diagrams: 03/06/18 06:12 03/06/18 06:12 Objective Remarks: GENERAL: Young male, lying in bed, critically ill, intubated, sedated. HEENT: Normocephalic. Atraumatic. Pupils equal, round, reactive, conjugate. Mucous membranes are moist. There is a Fantasma tube in place. NECK: Trachea is midline. There is no JVD. Right IJ introducer sheath in place , site is clean dry and intact CHEST: PRVC mode. FiO2 50%. Equal chest rise. CARDIOVASCULAR: Tachycardic rate, regular rhythm. Sinus. ABDOMEN: Soft, nontender, distended with a positive fluid wave. No guarding. MUSCULOSKELETAL: Pulses 2+. 1+ peripheral edema. There is a right femoral triple-lumen catheter in place, site is clean dry and intact. NEUROLOGICAL: RASS -3. Withdraws to pain x4. Does not follow commands. 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 He remains very critically ill. start mobilizing fluids. will need repeat EGD. remains critically ill and off pathway. Neuro/Psych: Acute toxic metabolic encephalopathy Hepatic encephalopathy Midazolam/fentanyl/propofol drips for sedation/analgesia while intubated Goal of RASS -2 Daily sedation vacation ammonia elevated, but no way to administer lactulose at the present time. trend ammonia levels. start lactulose/rifaximin when able. CV: Acute hemorrhagic shock-resolved Lactic acidosis- slowly resolving Off pressors Serial lactates until cleared KVO IV fluids continue Lasix 40 mg IV every 12 hourly on 03/05 to mobilize fluid in view of significant volume overload. Resp: Acute hypoxic and hypercarbic respiratory failure PRVC ventilation Albuterol/ipratropium aerosols every 4 hours with albuterol aerosols every 2 hours as needed dyspnea Ventilator bundle On 50 % FiO2, probable TRALI, fluid overload, shunting, restriction from large ascites. FiO2 requirement significantly decreased immediately after paracentesis done on 03/04 with removal of 3.5 L of ascitic fluid Too unstable for weaning trials. GI: Upper GI bleed secondary to esophageal varices Liver cirrhosis Hepatitis C Elevated ammonia Status post upper endoscopy by Dr. Moeller on prior admission. Injected epinephrine. s/p repeat EGD 03/02: with variceal banding. Fantasma tube is in place. Transfer for TIPS when stable pantoprazole drip at 8 mg an hour and octreotide drips at 50 mcg/hr trend ammonia. Unable to provide lactulose or rifaximin with Fantasma tube in place/acute bleed Large ascites noted, status post US guided paracentesis 03/04 with significant improvement in respiratory status after drainage of 3.5 L of ascitic fluid which appears transudative-cultures sent. : Acute kidney injury- resolving Raygoza cath catheter NICKOLAS secondary to hypovolemic shock Endo: Sliding scale insulin Accu-Cheks to maintain euglycemia Renal: Creatinine currently within normal limit Accurate I's and O's Monitor urine output Heme: Acute blood loss anemia Acute coagulopathy leukocytosis Thrombocytopenia DIC totals: 29 prbc 16 FFP 9 plt 4 cryo 1mg factor 7 2 doses of KCentra 2 doses of Vit K keep plt > 50k or 100k if active massive bleeding. serial CBC, coag goal hgb > 8 while active hemorrhage, INR < 1.4, fibrinogen > 150, plt > 100k. ID: ceftriaxone 1 g every 24 hours for upper GI bleed MSK: PT evaluate and treat FEN: Acute hypernatremia Replace electrolytes as clinically indicated Access -Utilize peripheral IV. Remove right femoral CVL on 03/05. Maintain right IJ sheath. Prophylaxis -GI -pantoprazole drip -DVT -SCD/pharmacological prophylaxis contraindicated with acute bleed Consult palliative care to assist with deciding goals of therapy. D/W OTOLARYNGOLOGY REP. This patient remains critically ill with one or more organ systems which are or may become a threat to life. I have spent in excess of 31 minutes discontinuously in the care and management of this patient. This time is exclusive of procedures, and includes, but is not limited to, evaluation of the patient, review of the medical record, discussions with family, consultants, nursing staff, or respiratory therapy, and documentation in the medical record.
[2018-03-07] MEDS: Insulin NovoLIN Regular Correctional Sugar Inj SQ SCH ×4 (00:07→17:07)
[2018-03-07] MEDS: AMINOCAPROIC ACID 250 MG/ML NG/OG SCH ×5 (00:07→23:59)
[2018-03-07] MEDS: Midazolam 50 MG/50 ML Inj 50 MG/50 ML BAG IV.CONT PRN ×3 (01:22→20:13)
[2018-03-07] MEDS: Oral Hygiene Kit OROPHARYNG SCH ×4 (03:58→23:59)
[2018-03-07] MEDS: fentaNYL 10 mcg/mL Premix Drip 2,500 MCG/250 ML BAG IV.SIG PRN ×2 (05:39→19:23)
[2018-03-07 06:08] LABS: Baso % (Auto) 0.5 % (0.0-2.0); Eos # (Auto) 0.3 th/mm3 (0.0-0.4); Eos % (Auto) 4.1 % (0.0-4.0); Hematocrit 36.7 % (39.0-51.0); Hemoglobin 12.3 gm/dL (13.0-17.0); Lymph # (Auto) 1.3 th/mm3 (1.0-4.8); Lymph % (Auto) 19.9 % (9.0-44.0); Mean Corpuscular HGB Conc 33.5 % (32.0-36.0); Mean Corpuscular Hemoglobin 29.9 pg (27.0-34.0); Mean Corpuscular Volume 89.5 fL (80.0-100.0); Mean Platelet Volume 9.8 fL (7.0-11.0); Mono # (Auto) 0.7 th/mm3 (0.0-0.9); Mono % (Auto) 10.9 % (0.0-8.0); Neut # (Auto) 4.2 th/mm3 (1.8-7.7); Neut % (Auto) 64.6 % (16.0-70.0); Platelet Count 56 th/mm3 (150-450); Red Cell Distribution Width 15.8 % (11.6-17.2); White Blood Count 6.5 th/mm3 (4.0-11.0)
[2018-03-07 06:29] LABS: Anion Gap 7 meq/L (5-15)
[2018-03-07 06:32] LABS: Alanine Aminotransferase 144 U/L (12-78); Albumin 1.9 g/dL (3.4-5.0); Alkaline Phosphatase 85 U/L (45-117); Aspartate Aminotransferase 94 U/L (15-37); Blood Urea Nitrogen 23 mg/dL (7-18); Carbon Dioxide 27.7 meq/L (21.0-32.0); Chloride 113 meq/L (98-107); Glomerular Filtration Rate Greater Than 89 mL/min (>89); Glucose,Random 88 mg/dL (74-106); Potassium 3.6 meq/L (3.5-5.1); Sodium 148 meq/L (136-145)
[2018-03-07 07:32] LABS: Eosinophils 1 % (0-4); Lymphocytes 6 % (9-44); Monocytes 6 % (0-8)
[2018-03-07 07:33] LABS: Platelet Morphology Normal (Normal); RBC Morphology Normal (Normal)
--- NOTE | 2018-03-07 08:09 | P.PNCC ---
Subjective Subjective Remarks/Hospital Course: Hospital Course: This is a 33-year-old male. Date of admission 03/01/2018. Past medical includes hepatitis C, known liver cirrhosis, esophageal varices patient was actually admitted 02/14 with upper GI bleed. Patient had 3 columns of 2-3 grade esophageal varices that evaluated Sean with banding.. Patient presents to [facility] 03/01 witha chief complaint of hematemesis. EMS reports that his initial blood pressure on their arrival was in the 70s-80s with a heart rate in the 150s. They state that he has put out copious amounts of hematemesis. Patient states that this began approximately 30 minutes prior to arrival. He does admit to fever and chills as well with abdominal pain. No headache no recent trauma. No chest pain or shortness of breath. Patient was emergently intubated and central line was placed in the femoral region. Hemoglobin is noted to be 5.2. Emergently transfused 3 units PRBCs. GI was consulted to try to perform an upper endoscopy revealed copious amounts of blood in the esophagus. Epinephrine injection was attempted. Fantasma tube was placed. IR was called. Repeat laboratories revealed significant coagulopathy with elevated INR/PTT and low fibrinogen. Unable to do intervention. State they do not tips at this facility. Patient needs to be stabilized prior to any transfer. Remains intubated on low-dose norepinephrine drip. Currently receiving K Centra, FFP and cryoprecipitate. Subjective: 03/02: remains in active hemorrhagic shock. bleeding continues to be uncontrolled. massive transfusion is ongoing. Totals currently: 22 prbc 16 FFP 4 plt 4 Cryo off levophed, but still actively bleeding, suctioning bright red blood from mouth and having bright red bloody bowel movements. Fantasma remains in place. lactate 11. remains acidotic. 03/03: remains intubated. bleeding has appeared to slow, but continues at a slow ooze. hgb now stable. platelets continue to drop in a combination of consumption and splenic sequestration. off vasopressors. likely plan for repeat EGD today. lactate is clearing, albeit slowly. totals: 29 prbc 16 FFP 9 plt 4 cryo 1mg factor 7 2 doses of KCentra 2 doses of Vit K 03/04: Remains sedated, orally intubated on mechanical ventilation. Fantasma tube remains in place. 03/05: Remains sedated, orally intubated on mechanical ventilation. Fantasma tube remains in place though it has been deflated. Hemoglobin remained stable at 12. 3.5 L of ascitic fluid drained with ultrasound guidance yesterday, fluid appears transudative. Following paracentesis FiO2 was decreased from 100- 50% and now is currently at 70%. Clinically significant volume overload persists with generalized anasarca scrotal edema. Initiating Lasix to mobilize fluids. Has been maintaining blood pressure for the last 48 hours. 03/06: remains intubated and sedated. hgb stable. GI wants to wait additional 24h before repeat EGD. remains volume overloaded. 03/07: Remains sedated, orally intubated on mechanical ventilation. Awaiting EGD with possible banding today by GI. Being diuresed. Objective Vital Signs / I&O: Vital Signs 03/06/18 08:30 03/06/18 09:00 03/06/18 09:30 Temperature Pulse Rate 65 64 64 Respiratory Rate 20 20 20 Blood Pressure 126/64 122/61 120/56 L Pulse Oximetry 95 95 96 03/06/18 09:57 03/06/18 10:00 03/06/18 10:30 Temperature Pulse Rate 63 63 Respiratory Rate 20 20 20 Blood Pressure 118/59 L 117/57 L Pulse Oximetry 96 96 96 03/06/18 11:00 03/06/18 11:30 03/06/18 12:00 Temperature 98.9 F Pulse Rate 63 63 63 Respiratory Rate 20 20 20 Blood Pressure 115/59 L 119/59 L 116/55 L Pulse Oximetry 96 95 95 03/06/18 12:30 03/06/18 12:57 03/06/18 13:00 Temperature Pulse Rate 62 63 Respiratory Rate 20 20 20 Blood Pressure 115/55 L 115/59 L Pulse Oximetry 94 L 94 L 94 L 03/06/18 13:30 03/06/18 14:00 03/06/18 14:30 Temperature Pulse Rate 62 62 62 Respiratory Rate 20 20 20 Blood Pressure 117/58 L 117/56 L 116/57 L Pulse Oximetry 94 L 93 L 93 L 03/06/18 15:00 03/06/18 15:30 03/06/18 15:56 Temperature Pulse Rate 62 62 Respiratory Rate 20 20 20 Blood Pressure 116/57 L 114/55 L Pulse Oximetry 93 L 93 L 92 L 03/06/18 16:00 03/06/18 18:00 03/06/18 20:00 Temperature 98.9 F 98.6 F Pulse Rate 62 62 66 Respiratory Rate 20 20 Blood Pressure 116/59 L Pulse Oximetry 92 L 94 L 03/06/18 20:57 03/06/18 22:00 03/07/18 00:00 Temperature 99.5 F Pulse Rate 66 65 Respiratory Rate 20 20 Blood Pressure Pulse Oximetry 95 93 L 03/07/18 00:29 03/07/18 04:00 03/07/18 06:00 Temperature 99.6 F Pulse Rate 62 62 Respiratory Rate 20 20 Blood Pressure Pulse Oximetry 94 L 94 L 03/07/18 07:35 Temperature Pulse Rate Respiratory Rate 20 Blood Pressure Pulse Oximetry 94 L Intake & Output 03/06/18 03/07/18 03/07/18 18:59 06:59 18:59 Intake Total 1197.5 / 1197.5 1474 / 1474 Output Total 1350 / 1350 1999 Balance -152.5 / -152.5 -526 / -526 Weight 107.1 kg Intake: IV 950.5 / 950.5 1250 / 1250 Versed Inj 50 mg In 50 ml @ 2 100 / 100 50 / 50 MG/HR 2 mls/hr IV.CONT TITRATE PRN Rx#:[id number] SandoSTATIN Inj 500 MCG In NS 500.5 / 500.5 500 / 500 Inj 500 ML @ 50 MCG/HR 50.05 mls/hr IV.CONT .Q10H [facility] Rx#: [id number] Diprivan 1000 mg/100 ml Inj 1, 100 / 100 100 / 100 000 mg In 100 ml @ 5 MCG/KG/MIN 2.177 mls/hr IV.CONT TITRATE PRN Rx#:[id number] Rocephin Inj 1,000 MG In NS Inj 100 / 100 100 ML @ 200 mls/hr IV.SIG Q24H [facility] Rx#:[id number] fentaNYL 10 mcg/mL Premix Drip 250 / 250 500 / 500 2,500 mcg In 250 ml @ 50 MCG/HR 5 mls/hr IV.SIG TITRATE PRN Rx #:[id number] Tube Feeding 187 / 187 174 / 174 Tube Irrigant 60 / 60 50 / 50 Output: Urine Amount (Catheter) 1350 / 1350 1999 Condom 1350 / 1350 1999 Result Diagrams: 03/07/18 05:00 03/07/18 05:00 Imaging: Impressions Chest X-Ray 03/05/18 07:28 CONCLUSION: Worsening parenchymal process bilaterally probably worsening pulmonary edema. Pneumonia is difficult to exclude. Abdomen/Pelvis CTA 03/06/18 00:00 CONCLUSION: 1. The abdominal aorta, proximal celiac and superior mesenteric arteries are within normal limits. There is no evidence of active extravasation of contrast. 2. Cirrhotic liver again noted as well as splenomegaly. 3. New consolidation in both lung bases with small pleural effusions. There is moderate to large amount of ascitic fluid now noted throughout the abdomen as well as anasarca. Objective Remarks: GENERAL: Young male, lying in bed, critically ill, intubated, sedated. HEENT: Normocephalic. Atraumatic. Pupils equal, round, reactive, conjugate. Mucous membranes are moist. There is a Fantasma tube in place. NECK: Trachea is midline. There is no JVD. Right IJ introducer sheath in place , site is clean dry and intact CHEST: PRVC mode. FiO2 50%. Equal chest rise. CARDIOVASCULAR: Tachycardic rate, regular rhythm. Sinus. ABDOMEN: Soft, nontender, distended with a positive fluid wave. No guarding. MUSCULOSKELETAL: Pulses 2+. 1+ peripheral edema. NEUROLOGICAL: RASS -3. Withdraws to pain x4. Does not follow commands. 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 He remains very critically ill. start mobilizing fluids. will need repeat EGD. remains critically ill and off pathway. Neuro/Psych: Acute toxic metabolic encephalopathy Hepatic encephalopathy Midazolam/fentanyl/propofol drips for sedation/analgesia while intubated Goal of RASS -2 Daily sedation vacation ammonia elevated, but no way to administer lactulose at the present time. trend ammonia levels. start lactulose/rifaximin when able. CV: Acute hemorrhagic shock-resolved Lactic acidosis- slowly resolving Off pressors Serial lactates until cleared KVO IV fluids continue Lasix 40 mg IV every 12 hourly on 03/05 to mobilize fluid in view of significant volume overload. Resp: Acute hypoxic and hypercarbic respiratory failure PRVC ventilation Albuterol/ipratropium aerosols every 4 hours with albuterol aerosols every 2 hours as needed dyspnea Ventilator bundle On 50 % FiO2, probable TRALI, fluid overload, shunting, restriction from large ascites. FiO2 requirement significantly decreased immediately after paracentesis done on 03/04 with removal of 3.5 L of ascitic fluid Too unstable for weaning trials. GI: Upper GI bleed secondary to esophageal varices Liver cirrhosis Hepatitis C Elevated ammonia Status post upper endoscopy by Dr. Moeller on prior admission. Injected epinephrine. s/p repeat EGD 03/02: with variceal banding. Fantasma tube is in place. GI to repeat EGD today with possible banding. May require TIPS for recurrent variceal bleed-defer timing to GI pantoprazole drip at 8 mg an hour and octreotide drips at 50 mcg/hr trend ammonia. Unable to provide lactulose or rifaximin with Fantasma tube in place/acute bleed Large ascites noted, status post US guided paracentesis 03/04 with significant improvement in respiratory status after drainage of 3.5 L of ascitic fluid which appears transudative-cultures sent. : Acute kidney injury- resolving Raygoza cath catheter NICKOLAS secondary to hypovolemic shock Endo: Sliding scale insulin Accu-Cheks to maintain euglycemia Renal: Creatinine currently within normal limit Accurate I's and O's Monitor urine output Heme: Acute blood loss anemia Acute coagulopathy leukocytosis Thrombocytopenia DIC totals: 29 prbc 16 FFP 9 plt 4 cryo 1mg factor 7 2 doses of KCentra 2 doses of Vit K keep plt > 50k or 100k if active massive bleeding. serial CBC, coag goal hgb > 8 while active hemorrhage, INR < 1.4, fibrinogen > 150, plt > 100k. ID: ceftriaxone 1 g every 24 hours for upper GI bleed MSK: PT evaluate and treat FEN: Acute hypernatremia Replace electrolytes as clinically indicated Access -Utilize peripheral IV. Remove right femoral CVL on 03/05. Maintain right IJ sheath. Prophylaxis -GI -pantoprazole drip -DVT -SCD/pharmacological prophylaxis contraindicated with acute bleed Consult palliative care to assist with deciding goals of therapy. D/W RABBIT BREEDER. Discussed with patient's mother at bedside, updated her regarding current clinical status and plan of care and she voiced understanding and was agreeable. This patient remains critically ill with one or more organ systems which are or may become a threat to life. I have spent in excess of 35 minutes discontinuously in the care and management of this patient. This time is exclusive of procedures, and includes, but is not limited to, evaluation of the patient, review of the medical record, discussions with family, consultants, nursing staff, or respiratory therapy, and documentation in the medical record.
[2018-03-07] MEDS: rifAXIMin 550 MG Tablet PO SCH ×2 (09:19→20:51)
[2018-03-07] MEDS: Octreotide Inj 500 MCG in Sodium Chlor 0.9% Inj 500 ML IV.CONT SCH ×2 (09:20→20:51)
[2018-03-07] MEDS: Artificial Tears Opth Drops 15 ML Bottle EACH EYE SCH ×3 (09:21→17:07)
[2018-03-07] MEDS: Senna/Docusate Sodium 8.6/50 MG Tablet PO SCH ×2 (09:21→20:51)
[2018-03-07] MEDS: Chlorhexidine 0.12% Oral Kit 15 ML UDC OROPHARYNG SCH ×2 (09:21→20:52)
[2018-03-07] MEDS: Propofol 1000 mg/100 ml Inj 1,000 MG/100 ML BOTTLE IV.CONT PRN ×2 (09:44→20:13)
[2018-03-07] MEDS ORDERED: fentaNYL Citrate Inj 100 MCG/2 ML Ampul ONE (16:16)
--- NOTE | 2018-03-07 16:29 | P.RAD ---
Post Procedure Progress Note - Procedure Information Procedure Date: 03/07/18 Supervising Radiologist: Josef Miles MD Estimated blood loss (mL): 5 Anesthesia: General - Plan of Activity Patient to Unit: ROPU Patient Condition: Good See PACS Report for procedural detail/treatment.
--- NOTE | 2018-03-07 16:53 | IR ---
EXAM DATE: 03/07/2018 4:46 PM EST AGE/SEX: 33 years / Male INDICATIONS: Patient presents with liver cirrhosis and esophageal varices in need of TIPS procedure with possible varicocele embolization. CLINICAL DATA: This is the patient's initial encounter. Patient reports that signs and symptoms have been present for 4 - 6 days and indicates a pain score of Nonresponsive. MEDICAL/SURGICAL HISTORY: . AFIB, Cirrhosis, Hypertension, Substance abuse, Hepatitis C. . No history of previous surgery. COMPARISON: No prior exams available for comparison. FLUORO TIME (min): 45.5 IMAGE SERIES: 12 ACCESS SITE: Right internal jugular vein CONTRAST (cc): 75cc Visipaque (iodixanol) ; ; ; ; Vancomycin within 2 hrs of procedure, Ancef (or alternative) within 1 hr of procedure. Anesthesia and pain control was provided by the Anesthesia department. DEVICE(S): Right Portal vein stent (balloon expanding) [id number]/2cm Viator ; Right Portal vein OPHTHALMOLOGIST balloon 8.0 [id number] 75cm ; Right Portal vein embolic coil(s) [id number] 035 interlock Right Portal vein embolic coil(s) [id number] 035 interlock ; Right Portal vein embolic coil(s) [id number] cm 035 interlock ; Right Portal vein embolic coil(s) [id number] 035 interlock Right Portal vein embolic coil(s) [id number] 035 interlock ; ; . . PROCEDURE : 1. Ultrasound-guided puncture of the access site. 2. Right atrial pre-TIPS pressure measurements 3. Placement of transjugular intrahepatic portosystemic shunt (TIPS) 4. Right hepatic vein and portal venography 5. Right atrial and portal post TIPS pressure measurements 6. : Mineralization of multiple short gastric and coronary varices. The risks, benefits and alternatives to the procedure were explained and verbal and written consent w as obtained. The site was prepped in sterile fashion. Full sterile technique was used, including ca p, mask, sterile gloves and gown and a large sterile sheet. Hand hygiene and 2% chlorhexidine and/or betadine/alcohol prep was utilized per protocol for cutaneous antisepsis. Sterile gel and sterile p robe cover were utilized for ultrasound guidance. The skin and subcutaneous tissues were infiltrated with local anesthetic solution. Ultrasound evaluation of the right internal jugular vein demonstrated a patent internal jugular vein. Single image was obtained and placed in PACS archive. A 21-gauge micropuncture needle was advanced i nto the internal jugular vein under direct ultrasound guidance. This was subsequently exchanged for a 6 Romanian sheath. Pressure measurements were then obtained through the sheath. Next, a Dimas catheter was used to select the right hepatic vein and venogram was performed demonstrating patency. Sheath w as subsequently exchanged for a 10 Romanian sheath which was advanced into the right hepatic vein. Need le was advanced through a metal cannula and following multiple passes through right lobe of the liver the portal vein was accessed. Catheter was advanced into the portal vein and venography was performe d confirming position in the portal vein. Next, the tract was dilated with 6 x 40 mm balloon and lucia th was advanced into the portal vein. An 8+2 cm x 10 mm Viatorr stent was deployed through the tract and subsequently dilated to 10 mm with 10 mm balloon. Repeat portal venogram was performed demonstrat ing appropriate tips positioned with multiple large short gastric and coronary varices. 3 separate va rices were selected and coil embolized with multiple interlock coils. Final postprocedural portal alana ogram demonstrated near stasis of flow in the embolized varices with widely patent TIPS and flow exte nding to the right atrium. Catheters and wires were then removed and hemostasis obtained at the puncture site with manual compre ssion. The patient tolerated the procedure well and there were no complications. FINDINGS: Right atrial pressure pre-TIPS placement: 8 mmHg Right atrial pressure Post-TIPS placement: 31 mmHg Portal vein pressure Post-TIPS placement: 19 mmHg Post-TIPS gradient: 12mmHg Right hepatic vein and portal veins are patent. Right hepatic vein to right portal vein TIPS placemen t. . CONCLUSION: 1. Technically successful TIPS placement, as above. 2. Technically successful coil embolization of multiple short gastric and coronary varices. 3. PLAN: Baseline ultrasound examination in 2 weeks with surveillance ultrasound at 3 months, 6 hannah hs and one year. Electronically signed by: Josef Miles MD 03/07/2018 4:52 PM EST
--- NOTE | 2018-03-07 17:44 | P.PNONC ---
Subjective Interval history: Events last 24 hours noted. Pt intubated and sedated. Discussed with glued wood tester. Objective Vital Signs/Intake & Output: Vital Signs 03/06/18 18:00 03/06/18 20:00 03/06/18 20:57 Temperature 98.6 F Pulse Rate 62 66 Respiratory Rate 20 20 Blood Pressure Pulse Oximetry 94 L 95 03/06/18 22:00 03/07/18 00:00 03/07/18 00:29 Temperature 99.5 F Pulse Rate 66 65 Respiratory Rate 20 20 Blood Pressure Pulse Oximetry 93 L 94 L 03/07/18 04:00 03/07/18 06:00 03/07/18 07:35 Temperature 99.6 F Pulse Rate 62 62 Respiratory Rate 20 20 Blood Pressure Pulse Oximetry 94 L 94 L 03/07/18 11:02 03/07/18 13:27 03/07/18 14:49 Temperature 98.5 F Pulse Rate 68 Respiratory Rate 20 18 Blood Pressure 120/63 Pulse Oximetry 94 L 96 97 03/07/18 16:46 Temperature Pulse Rate Respiratory Rate 20 Blood Pressure Pulse Oximetry 94 L Intake & Output 03/06/18 03/07/18 03/07/18 18:59 06:59 18:59 Intake Total 1197.5 / 1197.5 1474 / 1474 844.5 / 844.5 Output Total 1350 / 1350 1999 Balance -152.5 / -152.5 -526 / -526 844.5 / 844.5 Weight 107.1 kg Intake: IV 950.5 / 950.5 1250 / 1250 650.5 / 650.5 Versed Inj 50 mg In 50 ml @ 2 100 / 100 50 / 50 50 / 50 MG/HR 2 mls/hr IV.CONT TITRATE PRN Rx#:[id number] SandoSTATIN Inj 500 MCG In NS 500.5 / 500.5 500 / 500 500.5 / 500.5 Inj 500 ML @ 50 MCG/HR 50.05 mls/hr IV.CONT .Q10H NAVID Rx#: [id number] Diprivan 1000 mg/100 ml Inj 1, 100 / 100 100 / 100 100 / 100 000 mg In 100 ml @ 5 MCG/KG/MIN 2.177 mls/hr IV.CONT TITRATE PRN Rx#:[id number] Rocephin Inj 1,000 MG In NS Inj 100 / 100 100 ML @ 200 mls/hr IV.SIG Q24H NAVID Rx#:[id number] fentaNYL 10 mcg/mL Premix Drip 250 / 250 500 / 500 2,500 mcg In 250 ml @ 50 MCG/HR 5 mls/hr IV.SIG TITRATE PRN Rx #:[id number] Tube Feeding 187 / 187 174 / 174 Tube Irrigant 60 / 60 50 / 50 Intake (Blood Product) Amt 194 / 194 Plt Pheresis A Leukoreduced 194 / 194 Unit [id number] Output: Urine Amount (Catheter) 1350 / 1350 1999 Condom 1350 / 1350 1999 Result Diagrams: 03/07/18 05:00 03/07/18 05:00 Laboratory Results: Laboratory Results - last 24 hr 03/02/18 03/04/18 03/07/18 01:44 13:31 00:05 WBC RBC Hgb Hct MCV MCH MCHC RDW Plt Count MPV Prelim Diff (Auto) Neut % (Auto) Lymph % (Auto) [place] % (Auto) Eos % (Auto) Baso % (Auto) Neut # (Auto) Lymph # (Auto) [place] # (Auto) Eos # (Auto) Baso # (Auto) WBC Differential Seg Neuts % (Manual) Band Neuts % (Manual) Lymphocytes % (Manual) Monocytes % (Manual) Eosinophils % (Manual) Abs Neuts (Manual) Differential Comment Platelet Estimate Platelet Morphology RBC Morphology Sodium Potassium Chloride Carbon Dioxide Anion Gap BUN Creatinine Estimated GFR POC Glucose 96 Random Glucose Calcium Prot Corrected Calcium Total Bilirubin AST ALT Alkaline Phosphatase Total Protein Albumin MTS Gel Crossmatch See Detail See Detail Blood Bank Comment Bld Prod Order Comment 03/07/18 03/07/18 03/07/18 05:00 05:00 10:34 WBC 6.5 RBC 4.10 L Hgb 12.3 L Hct 36.7 L MCV 89.5 MCH 29.9 MCHC 33.5 RDW 15.8 Plt Count 56 L MPV 9.8 Prelim Diff (Auto) Slide review pending Neut % (Auto) 64.6 Lymph % (Auto) 19.9 [place] % (Auto) 10.9 H Eos % (Auto) 4.1 H Baso % (Auto) 0.5 Neut # (Auto) 4.2 Lymph # (Auto) 1.3 [place] # (Auto) 0.7 Eos # (Auto) 0.3 Baso # (Auto) 0.0 WBC Differential Manual diff final Seg Neuts % (Manual) 75 H Band Neuts % (Manual) 12 H Lymphocytes % (Manual) 6 L Monocytes % (Manual) 6 Eosinophils % (Manual) 1 Abs Neuts (Manual) 5.7 Differential Comment . Platelet Estimate Low L Platelet Morphology Normal RBC Morphology Normal Sodium 148 H Potassium 3.6 Chloride 113 H Carbon Dioxide 27.7 Anion Gap 7 BUN 23 H Creatinine 0.68 Estimated GFR Greater than 89 POC Glucose Random Glucose 88 Calcium 7.0 L* Prot Corrected Calcium 8.1 L Total Bilirubin 1.7 H AST 94 H ALT 144 H Alkaline Phosphatase 85 Total Protein 5.0 L Albumin 1.9 L MTS Gel Crossmatch Blood Bank Comment Bld Prod Order Comment 03/07/18 03/07/18 11:51 16:38 WBC RBC Hgb Hct MCV MCH MCHC RDW Plt Count MPV Prelim Diff (Auto) Neut % (Auto) Lymph % (Auto) [place] % (Auto) Eos % (Auto) Baso % (Auto) Neut # (Auto) Lymph # (Auto) [place] # (Auto) Eos # (Auto) Baso # (Auto) WBC Differential Seg Neuts % (Manual) Band Neuts % (Manual) Lymphocytes % (Manual) Monocytes % (Manual) Eosinophils % (Manual) Abs Neuts (Manual) Differential Comment Platelet Estimate Platelet Morphology RBC Morphology Sodium Potassium Chloride Carbon Dioxide Anion Gap BUN Creatinine Estimated GFR POC Glucose 79 163 H Random Glucose Calcium Prot Corrected Calcium Total Bilirubin AST ALT Alkaline Phosphatase Total Protein Albumin MTS Gel Crossmatch Blood Bank Comment Bld Prod Order Comment Culture Results: Microbiology 03/04/18 16:19 Gram Stain - Final Fluid - Peritoneal fluid Body Fluid Culture - Final No growth in 72 hours (aerobically and anaerobically) 03/01/18 21:45 Aerobic Blood Culture - Final Blood - Peripheral No growth in 5 days Anaerobic Blood Culture - Final No growth in 5 days 03/01/18 21:40 Aerobic Blood Culture - Final Blood - Peripheral No growth in 5 days Anaerobic Blood Culture - Final No growth in 5 days Imaging Studies: Impressions Abdomen/Pelvis CTA 03/06/18 00:00 CONCLUSION: 1. The abdominal aorta, proximal celiac and superior mesenteric arteries are within normal limits. There is no evidence of active extravasation of contrast. 2. Cirrhotic liver again noted as well as splenomegaly. 3. New consolidation in both lung bases with small pleural effusions. There is moderate to large amount of ascitic fluid now noted throughout the abdomen as well as anasarca. TIPS 03/07/18 00:00 CONCLUSION: 1. Technically successful TIPS placement, as above. 2. Technically successful coil embolization of multiple short gastric and coronary varices. 3. PLAN: Baseline ultrasound examination in 2 weeks with surveillance ultrasound at 3 months, 6 months and one year. Medications: Active Medications Generic Name Dose Route Start Last Admin Trade Name Freq PRN Reason Stop Dose Admin Aminocaproic Acid 1,000 mg 03/03/18 00:00 03/07/18 17:07 Amicar Liq NG/OG 1,000 mg Q6HR NAVID Administration Artificial Tears 1 drop 03/02/18 09:00 03/07/18 17:07 Tears Naturale Opth Drops EACH EYE 1 drop TID NAVID Administration Chlorhexidine Gluconate 15 ml 03/02/18 08:00 03/07/18 09:21 Peridex 0.12% Oral Kit OROPHARYNG 15 ml BID@0800,2000 NAVID Administration Furosemide 40 mg 03/05/18 18:00 03/07/18 17:07 Lasix Inj IV.PUSH 40 mg BID@0900,1800 NAVID Administration Norepinephrine Bitartrate 4 mg in 250 mls @ 7.5 mls/hr 03/01/18 22:46 19:56 Levophed-Dextrose 4 Mg/250 Ml Drip IV.SIG Infused TITRATE PRN Titration Per Protocol Protocol 2 MCG/MIN Midazolam HCl 50 mg in 50 mls @ 2 mls/hr 03/01/18 23:49 03/07/18 09:26 Versed Inj IV.CONT 5 mg/hr TITRATE PRN 5 mls/hr Per Protocol Administration Protocol 2 MG/HR Fentanyl 2,500 mcg in 250 mls @ 5 mls/hr 03/01/18 23:48 03/07/18 05:39 Fentanyl 10 Mcg/Ml Premix Drip IV.SIG 250 mcg/hr TITRATE PRN 25 mls/hr Per Protocol Administration Protocol 50 MCG/HR Propofol 1,000 mg in 100 mls @ 2.177 mls/hr 03/01/18 23:48 03/07/18 09:44 Diprivan 1000 Mg/100 Ml Inj IV.CONT 15 mcg/kg/min TITRATE PRN 6.53 mls/hr Per Protocol Administration Protocol 5 MCG/KG/MIN Octreotide Acetate 500 mcg/ 500.5 mls @ 50.05 mls/hr 03/01/18 23:45 03/07/18 09:20 Sodium Chloride IV.CONT 50 mcg/hr .Q10H NAVID 50.05 mls/hr Administration 50 MCG/HR Potassium Chloride 40 meq in 100 mls @ 25 mls/hr 03/01/18 23:55 03/03/18 18: 44 Kcl 40 Meq Premix Inj IV.SIG Infused Q2H PRN Infusion For Potassium 2.8 - 3.2 mEq/L Potassium Chloride 40 meq in 100 mls @ 25 mls/hr 03/01/18 23:55 03/04/18 00: 46 Kcl 40 Meq Premix Inj IV.SIG Infused UNSCH PRN Infusion For Potassium 3.3 - 3.5 mEq/L Ceftriaxone Sodium 1,000 mg/ 100 mls @ 200 mls/hr 03/02/18 03:00 03/07/18 03: 57 Sodium Chloride IV.SIG 200 mls/hr Q24H NAVID Administration Dextrose 1,000 mls @ 30 mls/hr 03/02/18 18:30 03/06/18 18:01 D10w Inj IV.SIG Not Given .Q24H NAVID Insulin Human Regular 0 units 03/02/18 12:00 03/07/18 17:07 Novolin R Correctional Sugar Inj SQ Not Given Q6HR [facility] Protocol Miscellaneous Medication 1 each 03/02/18 00:00 03/07/18 17:07 OROPHARYNG 1 each 0000,0400,1200,1600 NAVID Administration Rifaximin 550 mg 03/05/18 21:00 03/07/18 09:19 Xifaxan PO 550 mg Q12HR NAVID Administration Senna/Docusate Sodium 1 tab 03/02/18 09:00 03/07/18 09:21 Yolanda-Colace PO Not Given BID NAVID Sodium Chloride 2 ml 03/02/18 09:00 03/07/18 09:21 Ns Flush IV.FLUSH 2 ml BID NAVID Administration Objective Remarks: GENERAL: Intubated and sedated, helmet off, well-developed patient. SKIN: Warm and dry. Multiple extensive tattoo work. Central line sites clear w /o bleeding. HEAD: Normocephalic. EYES: No scleral icterus. No injection or drainage. NECK: Supple, trachea midline. No JVD or lymphadenopathy. LYMPHATIC: No adenopathy. CARDIOVASCULAR: Regular rate and rhythm without murmurs. RESPIRATORY: Breath sounds equal bilaterally. No accessory muscle use. GASTROINTESTINAL: Abdomen soft, non-tender, nondistended. EXTREMITIES: No cyanosis, or trace edema. MUSCULOSKELETAL: Adequate muscle tone. Assessment/Plan - Plan 33-year-old man with history of alcoholic liver disease, hepatitis C leading to cirrhosis. He was admitted with massive upper GI bleed. He was transfused multiple blood products. Hematology oncology was consulted for the coagulopathy. Remain intubated and sedated. Fibrinogen stable. No active bleeding. Hgb Stable. Pending GI evaluation today Lupus anticoagulant is still pending. Coagulopathy secondary to underlying liver disease.
[2018-03-08] MEDS: Insulin NovoLIN Regular Correctional Sugar Inj SQ SCH ×4 (00:03→17:59)
[2018-03-08] MEDS: Propofol 1000 mg/100 ml Inj 1,000 MG/100 ML BOTTLE IV.CONT PRN ×3 (03:28→18:35)
[2018-03-08] MEDS: Midazolam 50 MG/50 ML Inj 50 MG/50 ML BAG IV.CONT PRN (04:50)
[2018-03-08] MEDS: Oral Hygiene Kit OROPHARYNG SCH ×2 (05:47→15:39)
[2018-03-08 05:50] LABS: Hematocrit 35.5 % (39.0-51.0); Hemoglobin 11.9 gm/dL (13.0-17.0); Mean Corpuscular HGB Conc 33.4 % (32.0-36.0); Mean Corpuscular Hemoglobin 29.8 pg (27.0-34.0); Mean Corpuscular Volume 89.5 fL (80.0-100.0); Mean Platelet Volume 8.9 fL (7.0-11.0); Platelet Count 80 th/mm3 (150-450); Red Blood Count 3.97 mil/mm3 (4.50-5.90); Red Cell Distribution Width 15.7 % (11.6-17.2); White Blood Count 9.2 th/mm3 (4.0-11.0)
[2018-03-08 06:13] LABS: Alanine Aminotransferase 102 U/L (12-78); Albumin 1.9 g/dL (3.4-5.0); Alkaline Phosphatase 94 U/L (45-117); Anion Gap 9 meq/L (5-15); Aspartate Aminotransferase 77 U/L (15-37); Blood Urea Nitrogen 23 mg/dL (7-18); Chloride 113 meq/L (98-107); Glomerular Filtration Rate Greater Than 89 mL/min (>89); Glucose,Random 110 mg/dL (74-106); Potassium 3.4 meq/L (3.5-5.1); Sodium 149 meq/L (136-145); Total Protein 5.2 g/dL (6.4-8.2)
[2018-03-08] MEDS: AMINOCAPROIC ACID 250 MG/ML NG/OG SCH ×3 (06:14→17:59)
[2018-03-08] MEDS: Octreotide Inj 500 MCG in Sodium Chlor 0.9% Inj 500 ML IV.CONT SCH ×2 (08:26→17:58)
[2018-03-08] MEDS: Artificial Tears Opth Drops 15 ML Bottle EACH EYE SCH ×3 (09:35→18:00)
[2018-03-08] MEDS: Chlorhexidine 0.12% Oral Kit 15 ML UDC OROPHARYNG SCH ×2 (09:35→20:04)
[2018-03-08] MEDS: rifAXIMin 550 MG Tablet PO SCH ×2 (09:35→20:04)
--- NOTE | 2018-03-08 09:56 | XR ---
EXAM DATE: 03/08/2018 9:48 AM EST AGE/SEX: 33 years / Male INDICATIONS: Respiratory failure. CLINICAL DATA: This is the patient's subsequent encounter. Patient reports that signs and symptoms h ave been present for 1 day and indicates a pain score of Nonresponsive. MEDICAL/SURGICAL HISTORY: . Afib. Hepatitis C. HTN. Liver cirrhosis None. COMPARISON: [facility], CHEST 1V SINGLE AP, 03/05/2018. . FINDINGS: Stable ETT and right IJ central line. Stable nasoenteric catheter. Significantly improved bilateral p arenchymal opacities with residual mild bibasal airspace disease. Cardiac lead is mildly enlarged. Pa rtially imaged variceal coils. CONCLUSION: 1. Stable tubes and lines, as above. 2. Significantly improved pulmonary edema pattern. Electronically signed by: Josef Miles MD 03/08/2018 9:55 AM EST
--- NOTE | 2018-03-08 10:47 | P.PNCC ---
Subjective Subjective Remarks/Hospital Course: Hospital Course: This is a 33-year-old male. Date of admission 03/01/2018. Past medical includes hepatitis C, known liver cirrhosis, esophageal varices patient was actually admitted 02/14 with upper GI bleed. Patient had 3 columns of 2-3 grade esophageal varices that evaluated Sean with banding.. Patient presents to [facility] 03/01 witha chief complaint of hematemesis. EMS reports that his initial blood pressure on their arrival was in the 70s-80s with a heart rate in the 150s. They state that he has put out copious amounts of hematemesis. Patient states that this began approximately 30 minutes prior to arrival. He does admit to fever and chills as well with abdominal pain. No headache no recent trauma. No chest pain or shortness of breath. Patient was emergently intubated and central line was placed in the femoral region. Hemoglobin is noted to be 5.2. Emergently transfused 3 units PRBCs. GI was consulted to try to perform an upper endoscopy revealed copious amounts of blood in the esophagus. Epinephrine injection was attempted. Fantasma tube was placed. IR was called. Repeat laboratories revealed significant coagulopathy with elevated INR/PTT and low fibrinogen. Unable to do intervention. State they do not tips at this facility. Patient needs to be stabilized prior to any transfer. Remains intubated on low-dose norepinephrine drip. Currently receiving K Centra, FFP and cryoprecipitate. Subjective: 03/02: remains in active hemorrhagic shock. bleeding continues to be uncontrolled. massive transfusion is ongoing. Totals currently: 22 prbc 16 FFP 4 plt 4 Cryo off levophed, but still actively bleeding, suctioning bright red blood from mouth and having bright red bloody bowel movements. Fantasma remains in place. lactate 11. remains acidotic. 03/03: remains intubated. bleeding has appeared to slow, but continues at a slow ooze. hgb now stable. platelets continue to drop in a combination of consumption and splenic sequestration. off vasopressors. likely plan for repeat EGD today. lactate is clearing, albeit slowly. totals: 29 prbc 16 FFP 9 plt 4 cryo 1mg factor 7 2 doses of KCentra 2 doses of Vit K 03/04: Remains sedated, orally intubated on mechanical ventilation. Fantasma tube remains in place. 03/05: Remains sedated, orally intubated on mechanical ventilation. Fantasma tube remains in place though it has been deflated. Hemoglobin remained stable at 12. 3.5 L of ascitic fluid drained with ultrasound guidance yesterday, fluid appears transudative. Following paracentesis FiO2 was decreased from 100- 50% and now is currently at 70%. Clinically significant volume overload persists with generalized anasarca scrotal edema. Initiating Lasix to mobilize fluids. Has been maintaining blood pressure for the last 48 hours. 03/06: remains intubated and sedated. hgb stable. GI wants to wait additional 24h before repeat EGD. remains volume overloaded. 03/07: Remains sedated, orally intubated on mechanical ventilation. Awaiting EGD with possible banding today by GI. Being diuresed. 03/08: Remains sedated, orally intubated on mechanical ventilation. Underwent TIPS procedure on 03/07 by interventional radiology. Awaiting EGD and colonoscopy today with possible removal of Fantasma tube and insertion of Dobbhoff. Objective Vital Signs / I&O: Vital Signs 03/07/18 11:02 03/07/18 12:00 03/07/18 13:27 Temperature 98.5 F Pulse Rate 62 68 Respiratory Rate 20 18 Blood Pressure 120/63 Pulse Oximetry 94 L 96 03/07/18 14:49 03/07/18 16:00 03/07/18 16:30 Temperature 97.8 F Pulse Rate 65 64 Respiratory Rate Blood Pressure 126/57 L Pulse Oximetry 97 93 L 03/07/18 16:43 03/07/18 16:45 03/07/18 16:46 Temperature Pulse Rate 64 63 Respiratory Rate 2 L 0 L 20 Blood Pressure 125/59 L 131/56 L Pulse Oximetry 94 L 94 L 94 L 03/07/18 17:00 03/07/18 17:15 03/07/18 17:30 Temperature Pulse Rate 63 63 63 Respiratory Rate 3 L 0 L 12 Blood Pressure 126/59 L 128/59 L 134/65 Pulse Oximetry 95 96 97 03/07/18 17:45 03/07/18 18:00 03/07/18 18:15 Temperature Pulse Rate 63 63 63 Respiratory Rate 20 20 13 Blood Pressure 133/67 123/66 124/64 Pulse Oximetry 97 97 98 03/07/18 18:30 03/07/18 18:45 03/07/18 19:00 Temperature Pulse Rate 63 64 64 Respiratory Rate 5 L 2 L 0 L Blood Pressure 127/65 130/64 130/66 Pulse Oximetry 98 98 98 03/07/18 19:15 03/07/18 20:00 03/07/18 20:06 Temperature 99.5 F Pulse Rate 65 68 Respiratory Rate 0 L 20 20 Blood Pressure 128/64 Pulse Oximetry 99 99 99 03/07/18 21:00 03/07/18 22:00 03/07/18 23:00 Temperature Pulse Rate 69 67 71 Respiratory Rate 20 20 20 Blood Pressure Pulse Oximetry 95 96 97 03/07/18 23:18 03/08/18 00:00 03/08/18 01:00 Temperature 101.1 F H Pulse Rate 74 69 Respiratory Rate 20 20 20 Blood Pressure Pulse Oximetry 98 97 96 03/08/18 02:00 03/08/18 03:00 03/08/18 04:00 Temperature 99.9 F H Pulse Rate 69 69 69 Respiratory Rate 20 20 20 Blood Pressure Pulse Oximetry 96 97 97 03/08/18 04:03 03/08/18 05:00 03/08/18 06:00 Temperature Pulse Rate 69 69 Respiratory Rate 20 20 20 Blood Pressure Pulse Oximetry 97 96 97 03/08/18 07:35 Temperature Pulse Rate Respiratory Rate 20 Blood Pressure Pulse Oximetry 97 Intake & Output 03/07/18 03/08/18 03/08/18 18:59 06:59 18:59 Intake Total 1094.5 / 1094.5 1733.0 / 1733.0 Output Total 2550 / 2550 600 / 600 Balance -1455.5 / -1455.5 1133.0 / 1133.0 Weight 106 kg Intake: IV 900.5 / 900.5 1401.0 / 1401.0 Versed Inj 50 mg In 50 ml @ 2 50 / 50 100 / 100 MG/HR 2 mls/hr IV.CONT TITRATE PRN Rx#:[id number] SandoSTATIN Inj 500 MCG In NS 500.5 / 500.5 1001.0 / 1001.0 Inj 500 ML @ 50 MCG/HR 50.05 mls/hr IV.CONT .Q10H [facility] Rx#: [id number] Diprivan 1000 mg/100 ml Inj 1, 100 / 100 200 / 200 000 mg In 100 ml @ 5 MCG/KG/MIN 2.177 mls/hr IV.CONT TITRATE PRN Rx#:[id number] Rocephin Inj 1,000 MG In NS Inj 100 / 100 100 ML @ 200 mls/hr IV.SIG Q24H [facility] Rx#:[id number] fentaNYL 10 mcg/mL Premix Drip 250 / 250 2,500 mcg In 250 ml @ 50 MCG/HR 5 mls/hr IV.SIG TITRATE PRN Rx #:[id number] Tube Feeding 232 / 232 Tube Irrigant 100 / 100 Intake (Blood Product) Amt 194 / 194 Plt Pheresis A Leukoreduced 194 / 194 Unit [id number] Output: Urine 2550 / 2550 Urine Amount (Catheter) 600 / 600 Condom 600 / 600 Other: Date of Last Bowel Movement 03/05/18 # Bowel Movements 0 Result Diagrams: 03/08/18 05:00 03/08/18 05:00 Imaging: Impressions Abdomen/Pelvis CTA 03/06/18 00:00 CONCLUSION: 1. The abdominal aorta, proximal celiac and superior mesenteric arteries are within normal limits. There is no evidence of active extravasation of contrast. 2. Cirrhotic liver again noted as well as splenomegaly. 3. New consolidation in both lung bases with small pleural effusions. There is moderate to large amount of ascitic fluid now noted throughout the abdomen as well as anasarca. TIPS 03/07/18 00:00 CONCLUSION: 1. Technically successful TIPS placement, as above. 2. Technically successful coil embolization of multiple short gastric and coronary varices. 3. PLAN: Baseline ultrasound examination in 2 weeks with surveillance ultrasound at 3 months, 6 months and one year. Chest X-Ray 03/08/18 08:52 CONCLUSION: 1. Stable tubes and lines, as above. 2. Significantly improved pulmonary edema pattern. Objective Remarks: GENERAL: Young male, lying in bed, critically ill, intubated, sedated. HEENT: Normocephalic. Atraumatic. Pupils equal, round, reactive, conjugate. Mucous membranes are moist. There is a Fantasma tube in place. NECK: Trachea is midline. There is no JVD. Right IJ introducer sheath in place , site is clean dry and intact CHEST: PRVC mode. FiO2 50%. Equal chest rise. CARDIOVASCULAR: Tachycardic rate, regular rhythm. Sinus. ABDOMEN: Soft, nontender, distended with a positive fluid wave. No guarding. MUSCULOSKELETAL: Pulses 2+. 1+ peripheral edema. NEUROLOGICAL: RASS -3. Withdraws to pain x4. Does not follow commands. 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 He remains very critically ill. start mobilizing fluids. will need repeat EGD. remains critically ill and off pathway. Neuro/Psych: Acute toxic metabolic encephalopathy Hepatic encephalopathy Midazolam/fentanyl/propofol drips for sedation/analgesia while intubated Goal of RASS -2 Daily sedation vacation ammonia elevated, but no way to administer lactulose at the present time. trend ammonia levels. start lactulose/rifaximin when able. CV: Acute hemorrhagic shock-resolved Lactic acidosis- slowly resolving Off pressors Serial lactates until cleared KVO IV fluids continue Lasix 40 mg IV every 12 hourly started on 03/05 to mobilize fluid in view of significant volume overload. Resp: Acute hypoxic and hypercarbic respiratory failure PRVC ventilation Albuterol/ipratropium aerosols every 4 hours with albuterol aerosols every 2 hours as needed dyspnea Ventilator bundle On 50 % FiO2, probable TRALI, fluid overload, shunting, restriction from large ascites. FiO2 requirement significantly decreased immediately after paracentesis done on 03/04 with removal of 3.5 L of ascitic fluid Start daily SBT tomorrow. GI: Upper GI bleed secondary to esophageal varices Liver cirrhosis Hepatitis C Elevated ammonia Status post upper endoscopy by Dr. Moeller on prior admission. Injected epinephrine. s/p repeat EGD 03/02: with variceal banding. Fantasma tube is in place. GI to repeat EGD today with possible banding. s/p TIPS for recurrent variceal bleed with coiling of short gastric and cardiac varices. pantoprazole drip at 8 mg an hour and octreotide drips at 50 mcg/hr trend ammonia. Unable to provide lactulose or rifaximin with Fantasma tube in place/acute bleed Large ascites noted, status post US guided paracentesis 03/04 with significant improvement in respiratory status after drainage of 3.5 L of ascitic fluid which appears transudative-cultures sent. : Acute kidney injury- resolving Raygoza cath catheter NICKOLAS secondary to hypovolemic shock Endo: Sliding scale insulin Accu-Cheks to maintain euglycemia Renal: Creatinine currently within normal limit Accurate I's and O's Monitor urine output Heme: Acute blood loss anemia Acute coagulopathy leukocytosis Thrombocytopenia DIC totals: 29 prbc 16 FFP 9 plt 4 cryo 1mg factor 7 2 doses of KCentra 2 doses of Vit K keep plt > 50k or 100k if active massive bleeding. serial CBC, coag goal hgb > 8 while active hemorrhage, INR < 1.4, fibrinogen > 150, plt > 100k. ID: ceftriaxone 1 g every 24 hours for upper GI bleed MSK: PT evaluate and treat FEN: Acute hypernatremia Replace electrolytes as clinically indicated Access -Utilize peripheral IV. Remove right femoral CVL on 03/05. Maintain right IJ sheath. Prophylaxis -GI -pantoprazole drip -DVT -SCD/pharmacological prophylaxis contraindicated with acute bleed Consult palliative care to assist with deciding goals of therapy. 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 Discussed with patient's mother at bedside, updated her regarding current clinical status and plan of care and she voiced understanding and was agreeable. This patient remains critically ill with one or more organ systems which are or may become a threat to life. I have spent in excess of 35 minutes discontinuously in the care and management of this patient. This time is exclusive of procedures, and includes, but is not limited to, evaluation of the patient, review of the medical record, discussions with family, consultants, nursing staff, or respiratory therapy, and documentation in the medical record.
[2018-03-08] MEDS: fentaNYL 10 mcg/mL Premix Drip 2,500 MCG/250 ML BAG IV.SIG PRN ×2 (11:00→22:00)
[2018-03-08 13:48] LABS: INR 1.3 Ratio; Prothrombin Time 13.4 sec (9.8-11.6)
--- NOTE | 2018-03-08 14:15 | GIPROC ---
[facility] [address] [facility]. [facility], [address] EGD PROCEDURE REPORT EXAM DATE: 03/08/2018 PATIENT NAME: Erick Bonilla MR #: [id number] BIRTHDATE: 1985 ATTENDING: Lennie Moeller MD ORDER #: [id number] MILLSTONE CLEANER: Yamilex Foreman RN STATUS: inpatient INDICATIONS: The patient is a 33 yr old male here for an EGD due to gi bleeding cirrhosis PROCEDURE PERFORMED: EGD, diagnostic MEDICATIONS: Per Anesthesia and None. TOPICAL ANESTHETIC: none CONSENT: The patient understands the risks and benefits of the procedure and understands that these risks include, but are not limited to: sedation, allergic reaction, infection, perforation and/or bleeding. Alternative means of evaluation and treatment include, among others: physical exam, x-rays, and/or surgical intervention. The patient elects to proceed with this endoscopic procedure. medical equipment was checked for proper function. Hand hygiene and appropriate measures for infection prevention was taken. After the risks, benefits and alternatives of the procedure were thoroughly explained, Informed consent was verified, confirmed and timeout was successfully executed by the treatment team. The patient was anesthetized with topical anesthesia and the Pentax EG-[id number] endoscope was introduced through the mouth and advanced to the second portion of the duodenum. Retroflexed views revealed a hiatal hernia The gastroscope was then slowly withdrawn and removed. Esophageal varices grade 2-no banding done s/p recent tips, coil appliance by IR portal gastopathy old blood in stomach. Edel tube remived, new ngt-16 inserted. ADVERSE EVENTS: There were no complications. IMPRESSIONS: 1. Esophageal varices grade 2-no banding done s/p recent tips, coil appliance by IR portal gastopathy old blood in stomach 2. Retroflexed views revealed a hiatal hernia RECOMMENDATIONS: Resume tube feeding egd in 6-8 weeks with possible banding PATIENT CONDITION: stable DISPOSITION: Inpatient REPEAT EXAM: Return 6 weeks EGD Lennie Moeller MD eSigned: Lennie Moeller MD 03/08/2018 2:15 PM cc:
[2018-03-08] MEDS: Senna/Docusate Sodium 8.6/50 MG Tablet PO SCH ×2 (15:40→20:04)
[2018-03-08] MEDS: Potassium Chlor 40 mEq Premix 40 MEQ/100 ML PIGGYBACK IV.SIG PRN (16:02)
[2018-03-09] MEDS: AMINOCAPROIC ACID 250 MG/ML NG/OG SCH ×5 (00:25→23:51)
[2018-03-09] MEDS: Oral Hygiene Kit OROPHARYNG SCH ×4 (00:26→16:24)
[2018-03-09] MEDS: Insulin NovoLIN Regular Correctional Sugar Inj SQ SCH ×4 (02:17→17:42)
[2018-03-09] MEDS: Midazolam 50 MG/50 ML Inj 50 MG/50 ML BAG IV.CONT PRN ×2 (03:00→19:20)
[2018-03-09] MEDS: Propofol 1000 mg/100 ml Inj 1,000 MG/100 ML BOTTLE IV.CONT PRN ×2 (03:00→12:14)
[2018-03-09] MEDS: Octreotide Inj 500 MCG in Sodium Chlor 0.9% Inj 500 ML IV.CONT SCH ×2 (03:21→12:53)
[2018-03-09 06:44] LABS: Alanine Aminotransferase 75 U/L (12-78); Albumin 1.9 g/dL (3.4-5.0); Alkaline Phosphatase 93 U/L (45-117); Anion Gap 9 meq/L (5-15); Aspartate Aminotransferase 53 U/L (15-37); Blood Urea Nitrogen 20 mg/dL (7-18); Calcium 7.3 mg/dL (8.5-10.1); Carbon Dioxide 26.7 meq/L (21.0-32.0); Chloride 114 meq/L (98-107); Glomerular Filtration Rate Greater Than 89 mL/min (>89); Glucose,Random 81 mg/dL (74-106); Potassium 3.4 meq/L (3.5-5.1); Sodium 150 meq/L (136-145); Total Protein 5.3 g/dL (6.4-8.2)
[2018-03-09] MEDS: fentaNYL 10 mcg/mL Premix Drip 2,500 MCG/250 ML BAG IV.SIG PRN ×2 (07:09→23:42)
[2018-03-09] MEDS: Chlorhexidine 0.12% Oral Kit 15 ML UDC OROPHARYNG SCH ×2 (07:59→20:28)
[2018-03-09] MEDS: rifAXIMin 550 MG Tablet PO SCH ×2 (08:01→20:33)
[2018-03-09] MEDS: Senna/Docusate Sodium 8.6/50 MG Tablet PO SCH ×2 (08:01→20:33)
[2018-03-09] MEDS: Potassium Chloride 25 MEQ Effervescent Tablet PO PRN (08:02)
[2018-03-09] MEDS: Artificial Tears Opth Drops 15 ML Bottle EACH EYE SCH ×3 (08:02→17:07)
--- NOTE | 2018-03-09 10:39 | P.PNGI ---
Subjective Interval history: Continues with ventilator management mother in room does have some facial grimace to light abdominal palpation Patient is status post TIPS procedure this week and EGD with banding., Still continues with dark brown clear urine, round taut abdomen Physical Exam Vital signs: Vital Signs 03/08/18 10:45 03/08/18 11:00 03/08/18 11:15 Temperature Pulse Rate 67 67 67 Respiratory Rate 20 20 20 Blood Pressure 130/65 130/64 130/64 Pulse Oximetry 96 95 95 03/08/18 11:30 03/08/18 11:31 03/08/18 11:45 Temperature Pulse Rate 67 67 Respiratory Rate 20 20 20 Blood Pressure 130/62 131/58 L Pulse Oximetry 95 95 96 03/08/18 12:00 03/08/18 12:15 03/08/18 12:30 Temperature 98.0 F Pulse Rate 67 69 68 Respiratory Rate 20 20 20 Blood Pressure 127/57 L 134/63 130/60 Pulse Oximetry 96 97 97 03/08/18 12:45 03/08/18 13:00 03/08/18 13:15 Temperature Pulse Rate 67 67 67 Respiratory Rate 20 20 20 Blood Pressure 129/58 L 127/59 L 128/56 L Pulse Oximetry 97 96 95 03/08/18 13:30 03/08/18 13:45 03/08/18 13:57 Temperature Pulse Rate 69 69 69 Respiratory Rate 20 20 20 Blood Pressure 133/63 138/66 132/64 Pulse Oximetry 97 97 97 03/08/18 14:00 03/08/18 14:01 03/08/18 14:03 Temperature Pulse Rate 69 69 73 Respiratory Rate 20 20 22 Blood Pressure 137/66 137/64 146/70 H Pulse Oximetry 98 98 98 03/08/18 14:06 03/08/18 14:09 03/08/18 14:12 Temperature Pulse Rate 74 75 72 Respiratory Rate 20 20 20 Blood Pressure 147/70 H 154/73 H 145/64 H Pulse Oximetry 96 99 99 03/08/18 14:15 03/08/18 14:18 03/08/18 14:30 Temperature Pulse Rate 70 69 70 Respiratory Rate 20 20 10 L Blood Pressure 146/66 H 146/67 H 141/59 H Pulse Oximetry 99 99 95 03/08/18 14:45 03/08/18 15:00 03/08/18 15:15 Temperature Pulse Rate 68 68 70 Respiratory Rate 20 20 20 Blood Pressure 140/63 140/63 146/70 H Pulse Oximetry 96 96 98 03/08/18 15:30 03/08/18 15:43 03/08/18 15:45 Temperature Pulse Rate 71 70 Respiratory Rate 20 20 20 Blood Pressure 151/73 H 138/69 Pulse Oximetry 99 99 99 03/08/18 16:00 03/08/18 16:15 03/08/18 16:30 Temperature 100.5 F H Pulse Rate 70 73 72 Respiratory Rate 20 20 20 Blood Pressure 138/68 145/76 H 140/74 Pulse Oximetry 99 99 99 03/08/18 16:45 03/08/18 17:00 03/08/18 17:15 Temperature Pulse Rate 72 72 71 Respiratory Rate 20 20 20 Blood Pressure 144/75 H 140/69 134/65 Pulse Oximetry 100 100 100 03/08/18 17:30 03/08/18 17:45 03/08/18 18:00 Temperature Pulse Rate 72 71 71 Respiratory Rate 20 20 20 Blood Pressure 136/66 133/63 137/65 Pulse Oximetry 100 98 98 03/08/18 18:15 03/08/18 18:30 03/08/18 18:45 Temperature Pulse Rate 72 72 72 Respiratory Rate 19 20 20 Blood Pressure 138/67 135/70 136/67 Pulse Oximetry 98 98 98 03/08/18 19:00 03/08/18 19:30 03/08/18 20:00 Temperature 100.1 F H Pulse Rate 73 70 Respiratory Rate 20 20 20 Blood Pressure 137/65 133/61 Pulse Oximetry 98 98 98 03/08/18 21:00 03/08/18 22:00 03/08/18 23:00 Temperature Pulse Rate 69 68 68 Respiratory Rate 20 20 20 Blood Pressure 136/61 138/62 139/57 L Pulse Oximetry 98 98 99 03/09/18 00:00 03/09/18 00:03 03/09/18 01:00 Temperature 100.1 F H Pulse Rate 64 65 Respiratory Rate 20 20 20 Blood Pressure 130/60 127/58 L Pulse Oximetry 95 100 100 03/09/18 02:00 03/09/18 03:00 03/09/18 04:00 Temperature 99.9 F H Pulse Rate 63 61 63 Respiratory Rate 20 20 20 Blood Pressure 129/61 125/55 L 135/59 L Pulse Oximetry 97 97 97 03/09/18 04:15 03/09/18 04:17 03/09/18 04:30 Temperature Pulse Rate 63 64 Respiratory Rate 20 20 20 Blood Pressure 135/61 137/63 Pulse Oximetry 97 97 96 03/09/18 04:45 03/09/18 05:00 03/09/18 05:15 Temperature Pulse Rate 63 64 69 Respiratory Rate 20 20 14 Blood Pressure 135/56 L 137/62 143/76 H Pulse Oximetry 96 98 100 03/09/18 05:30 03/09/18 05:45 03/09/18 06:00 Temperature Pulse Rate 66 65 64 Respiratory Rate 20 20 20 Blood Pressure 137/67 137/65 138/60 Pulse Oximetry 100 100 99 03/09/18 06:15 03/09/18 06:30 03/09/18 06:45 Temperature Pulse Rate 63 63 61 Respiratory Rate 20 20 20 Blood Pressure 138/63 136/59 L 134/61 Pulse Oximetry 98 97 96 03/09/18 07:00 03/09/18 07:15 03/09/18 07:30 Temperature Pulse Rate 61 60 61 Respiratory Rate 20 20 20 Blood Pressure 131/60 134/60 132/58 L Pulse Oximetry 96 96 96 03/09/18 07:39 03/09/18 07:45 03/09/18 08:00 Temperature Pulse Rate 60 60 Respiratory Rate 20 20 20 Blood Pressure 130/57 L 130/58 L Pulse Oximetry 96 96 96 03/09/18 08:15 03/09/18 08:30 03/09/18 08:45 Temperature Pulse Rate 59 L 59 L 59 L Respiratory Rate 20 20 20 Blood Pressure 132/55 L 128/58 L 129/60 Pulse Oximetry 96 96 96 03/09/18 09:00 03/09/18 09:15 03/09/18 09:30 Temperature Pulse Rate 60 61 62 Respiratory Rate 20 20 20 Blood Pressure 127/60 133/59 L 135/63 Pulse Oximetry 97 98 99 03/09/18 09:45 03/09/18 10:00 03/09/18 10:15 Temperature Pulse Rate 64 65 66 Respiratory Rate 14 14 14 Blood Pressure 135/65 127/63 130/61 Pulse Oximetry 99 100 100 Intake & Output 03/08/18 03/09/1818 18:59 06:59 18:59 Intake Total 1200.5 / 1200.5 1150.5 / 1150.5 250 / 250 Output Total 1750 / 1750 1400 / 1400 Balance -549.5 / -549.5 -249.5 / -249.5 250 / 250 Weight 104.7 kg Intake: IV 1000.5 / 1000.5 1050.5 / 1050.5 250 / 250 Versed Inj 50 mg In 50 ml @ 2 50 / 50 MG/HR 2 mls/hr IV.CONT TITRATE PRN Rx#:[id number] SandoSTATIN Inj 500 MCG In NS 500.5 / 500.5 500.5 / 500.5 Inj 500 ML @ 50 MCG/HR 50.05 mls/hr IV.CONT .Q10H [facility] Rx#: [id number] Diprivan 1000 mg/100 ml Inj 1, 200 / 200 100 / 100 000 mg In 100 ml @ 5 MCG/KG/MIN 2.177 mls/hr IV.CONT TITRATE PRN Rx#:[id number] KCl 40 mEq Premix Inj 40 meq In 100 / 100 100 ml @ 25 mls/hr IV.SIG UNSCH PRN Rx#:[id number] Rocephin Inj 1,000 MG In NS Inj 100 / 100 100 ML @ 200 mls/hr IV.SIG Q24H [facility] Rx#:[id number] fentaNYL 10 mcg/mL Premix Drip 250 / 250 250 / 250 250 / 250 2,500 mcg In 250 ml @ 50 MCG/HR 5 mls/hr IV.SIG TITRATE PRN Rx #:[id number] Tube Irrigant 100 / 100 Anesthesia Amount 200 / 200 Output: Urine Amount (Catheter) 1750 / 1750 1400 / 1400 Indwelling Urethral Catheter 1750 / 1750 1400 / 1400 Other: Date of Last Bowel Movement 03/05/18 - Constitutional moderate distress, cachectic, disheveled - Routine HEENT Exam Head: Present: normocephalic ENT: Present: mucous membranes moist - Routine Respiratory Exam Present: patient mechanically ventilated, distant breath sounds - Routine Cardiovascular Exam Present: S1, S2 - Routine Abdominal Exam Present: normoactive bowel sounds (Soft bowel sounds abdomen round taut, mild to moderate distention) - Urinary Catheter Management Indwelling Urethral Catheter Cath placed during this visit: yes Reason for continuing: Acute urinary retention Insertion date: 03/08/18 Insertion time: 10:30 Condom Cath placed during this visit: no Reason for continuing: Not indwelling catheter Results - Labs CBC & Chem 7: 03/08/18 05:00 03/09/18 05:00 Laboratory Results - last 24 hr 03/08/18 03/08/18 03/08/18 12:25 12:25 12:25 PT 13.4 H INR 1.3 APTT 26.7 Sodium Potassium Chloride Carbon Dioxide Anion Gap BUN Creatinine Estimated GFR POC Glucose Random Glucose Calcium Prot Corrected Calcium Total Bilirubin AST ALT Alkaline Phosphatase Total Protein Albumin Blood Type A Negative Antibody Screen Negative MTS Gel Crossmatch 03/08/18 03/08/18 03/08/18 12:43 14:08 17:53 PT INR APTT Sodium Potassium Chloride Carbon Dioxide Anion Gap BUN Creatinine Estimated GFR POC Glucose 99 93 Random Glucose Calcium Prot Corrected Calcium Total Bilirubin AST ALT Alkaline Phosphatase Total Protein Albumin Blood Type Antibody Screen MTS Gel Crossmatch See Detail 03/09/18 03/09/18 03/09/18 00:05 05:00 06:45 PT INR APTT Sodium 150 H Potassium 3.4 L Chloride 114 H Carbon Dioxide 26.7 Anion Gap 9 BUN 20 H Creatinine 0.63 Estimated GFR Greater than 89 POC Glucose 80 104 Random Glucose 81 Calcium 7.3 L* Prot Corrected Calcium 8.3 L Total Bilirubin 2.7 H AST 53 H ALT 75 Alkaline Phosphatase 93 Total Protein 5.3 L Albumin 1.9 L Blood Type Antibody Screen MTS Gel Crossmatch Assessment and Plan - Plan Assessment Upper GI bleeding secondary to esophageal varices S/P EGD (03/02)> large amount of blood in stomach. Fresh blood in the esophagus. Arterial lookingcould not be washed. Ulcers from previous banding site seenpossible source of bleeding, injected with epinephrine 6 mLBlakemore tube placed IR was consulted for TIPS, however this was cancelled because of labs indicative of severe coagulopathy Pt evaluated by hematology, recommending transfusion of platelets to maintain plts around 50,000. Noted that the problem is likely related to hepatic dysfunction. Fantasma deflated on 02/02 - Cirrhosis secondary to hepatitis C and EtOH abuse with complications of portal hypertension, coagulopathy, and recurrent GI bleed Hepatitis C, genotype 1 a, quant > 2 million - Ascites S/P paracentesis 03/05 --> 3.5 L of ascitic fluid drained by [facility] bedside. Fluid culture negative at 48 hours - Hyperammonemia- on Xifaxan and Lactulose 03/09/2018, patient does arouse to abdominal palpation. Patient is status post EGD and status post TIPS procedure. Mother is hopeful for liver transplant in the future, fair to poor prognosis. Peritoneal culture reviewed. Current hemoglobin 11.9 WBC count 9.2 Fantasma tube removed after EGD esophageal varices grade 2 no banding done status post TIPS cold and appliance per IR, portal gastropathy, old blood in stomach, hiatal hernia. AFP level to rule out liver mass. Patient is currently managed on Rocephin. Plan 16 Hebrew NG tube, okay to resume tube feed,nutrihep DC octreotide drip Protonix drip, monitor for any acute bleeding Protonix 40 mg IV daily Lasix 40 mg IV bid Ammonia level, AFP in a.m. Monitor labs with special attention to hemoglobin Lasix IV Zofran Patient will need return EGD in 6 weeks Supportive care to mother and patient Patient was seen per myself and Dr. Rice , note was written on his behalf
--- NOTE | 2018-03-09 11:36 | P.PNCC ---
Subjective Subjective Remarks/Hospital Course: Hospital Course: This is a 33-year-old male. Date of admission 03/01/2018. Past medical includes hepatitis C, known liver cirrhosis, esophageal varices patient was actually admitted 02/14 with upper GI bleed. Patient had 3 columns of 2-3 grade esophageal varices that evaluated Sean with banding.. Patient presents to [facility] 03/01 witha chief complaint of hematemesis. EMS reports that his initial blood pressure on their arrival was in the 70s-80s with a heart rate in the 150s. They state that he has put out copious amounts of hematemesis. Patient states that this began approximately 30 minutes prior to arrival. He does admit to fever and chills as well with abdominal pain. No headache no recent trauma. No chest pain or shortness of breath. Patient was emergently intubated and central line was placed in the femoral region. Hemoglobin is noted to be 5.2. Emergently transfused 3 units PRBCs. GI was consulted to try to perform an upper endoscopy revealed copious amounts of blood in the esophagus. Epinephrine injection was attempted. Fantasma tube was placed. IR was called. Repeat laboratories revealed significant coagulopathy with elevated INR/PTT and low fibrinogen. Unable to do intervention. State they do not tips at this facility. Patient needs to be stabilized prior to any transfer. Remains intubated on low-dose norepinephrine drip. Currently receiving K Centra, FFP and cryoprecipitate. Subjective: 03/02: remains in active hemorrhagic shock. bleeding continues to be uncontrolled. massive transfusion is ongoing. Totals currently: 22 prbc 16 FFP 4 plt 4 Cryo off levophed, but still actively bleeding, suctioning bright red blood from mouth and having bright red bloody bowel movements. Fantasma remains in place. lactate 11. remains acidotic. 03/03: remains intubated. bleeding has appeared to slow, but continues at a slow ooze. hgb now stable. platelets continue to drop in a combination of consumption and splenic sequestration. off vasopressors. likely plan for repeat EGD today. lactate is clearing, albeit slowly. totals: 29 prbc 16 FFP 9 plt 4 cryo 1mg factor 7 2 doses of KCentra 2 doses of Vit K 03/04: Remains sedated, orally intubated on mechanical ventilation. Fantasma tube remains in place. 03/05: Remains sedated, orally intubated on mechanical ventilation. Fantasma tube remains in place though it has been deflated. Hemoglobin remained stable at 12. 3.5 L of ascitic fluid drained with ultrasound guidance yesterday, fluid appears transudative. Following paracentesis FiO2 was decreased from 100- 50% and now is currently at 70%. Clinically significant volume overload persists with generalized anasarca scrotal edema. Initiating Lasix to mobilize fluids. Has been maintaining blood pressure for the last 48 hours. 03/06: remains intubated and sedated. hgb stable. GI wants to wait additional 24h before repeat EGD. remains volume overloaded. 03/07: Remains sedated, orally intubated on mechanical ventilation. Awaiting EGD with possible banding today by GI. Being diuresed. 03/08: Remains sedated, orally intubated on mechanical ventilation. Underwent TIPS procedure on 03/07 by interventional radiology. Awaiting EGD and colonoscopy today with possible removal of Fantasma tube and insertion of Dobbhoff. 03/09: Sedated, arousable, orally intubated on mechanical ventilation. Fantasma tube removed and replaced with Dobbhoff yesterday during EGD by GI Objective Vital Signs / I&O: Vital Signs 03/08/18 11:45 03/08/18 12:00 03/08/18 12:15 Temperature 98.0 F Pulse Rate 67 67 69 Respiratory Rate 20 20 20 Blood Pressure 131/58 L 127/57 L 134/63 Pulse Oximetry 96 96 97 03/08/18 12:30 03/08/18 12:45 03/08/18 13:00 Temperature Pulse Rate 68 67 67 Respiratory Rate 20 20 20 Blood Pressure 130/60 129/58 L 127/59 L Pulse Oximetry 97 97 96 03/08/18 13:15 03/08/18 13:30 03/08/18 13:45 Temperature Pulse Rate 67 69 69 Respiratory Rate 20 20 20 Blood Pressure 128/56 L 133/63 138/66 Pulse Oximetry 95 97 97 03/08/18 13:57 03/08/18 14:00 03/08/18 14:01 Temperature Pulse Rate 69 69 69 Respiratory Rate 20 20 20 Blood Pressure 132/64 137/66 137/64 Pulse Oximetry 97 98 98 03/08/18 14:03 03/08/18 14:06 03/08/18 14:09 Temperature Pulse Rate 73 74 75 Respiratory Rate 22 20 20 Blood Pressure 146/70 H 147/70 H 154/73 H Pulse Oximetry 98 96 99 03/08/18 14:12 03/08/18 14:15 03/08/18 14:18 Temperature Pulse Rate 72 70 69 Respiratory Rate 20 20 20 Blood Pressure 145/64 H 146/66 H 146/67 H Pulse Oximetry 99 99 99 03/08/18 14:30 03/08/18 14:45 03/08/18 15:00 Temperature Pulse Rate 70 68 68 Respiratory Rate 10 L 20 20 Blood Pressure 141/59 H 140/63 140/63 Pulse Oximetry 95 96 96 03/08/18 15:15 03/08/18 15:30 03/08/18 15:43 Temperature Pulse Rate 70 71 Respiratory Rate 20 20 20 Blood Pressure 146/70 H 151/73 H Pulse Oximetry 98 99 99 03/08/18 15:45 03/08/18 16:00 03/08/18 16:15 Temperature 100.5 F H Pulse Rate 70 70 73 Respiratory Rate 20 20 20 Blood Pressure 138/69 138/68 145/76 H Pulse Oximetry 99 99 99 03/08/18 16:30 03/08/18 16:45 03/08/18 17:00 Temperature Pulse Rate 72 72 72 Respiratory Rate 20 20 20 Blood Pressure 140/74 144/75 H 140/69 Pulse Oximetry 99 100 100 03/08/18 17:15 03/08/18 17:30 03/08/18 17:45 Temperature Pulse Rate 71 72 71 Respiratory Rate 20 20 20 Blood Pressure 134/65 136/66 133/63 Pulse Oximetry 100 100 98 03/08/18 18:00 03/08/18 18:15 03/08/18 18:30 Temperature Pulse Rate 71 72 72 Respiratory Rate 20 19 20 Blood Pressure 137/65 138/67 135/70 Pulse Oximetry 98 98 98 03/08/18 18:45 03/08/18 19:00 03/08/18 19:30 Temperature Pulse Rate 72 73 Respiratory Rate 20 20 20 Blood Pressure 136/67 137/65 Pulse Oximetry 98 98 98 03/08/18 20:00 03/08/18 21:00 03/08/18 22:00 Temperature 100.1 F H Pulse Rate 70 69 68 Respiratory Rate 20 20 20 Blood Pressure 133/61 136/61 138/62 Pulse Oximetry 98 98 98 03/08/18 23:00 03/09/18 00:00 03/09/18 00:03 Temperature 100.1 F H Pulse Rate 68 64 Respiratory Rate 20 20 20 Blood Pressure 139/57 L 130/60 Pulse Oximetry 99 95 100 03/09/18 01:00 03/09/18 02:00 03/09/18 03:00 Temperature Pulse Rate 65 63 61 Respiratory Rate 20 20 20 Blood Pressure 127/58 L 129/61 125/55 L Pulse Oximetry 100 97 97 03/09/18 04:00 03/09/18 04:15 03/09/18 04:17 Temperature 99.9 F H Pulse Rate 63 63 Respiratory Rate 20 20 20 Blood Pressure 135/59 L 135/61 Pulse Oximetry 97 97 97 03/09/18 04:30 03/09/18 04:45 03/09/18 05:00 Temperature Pulse Rate 64 63 64 Respiratory Rate 20 20 20 Blood Pressure 137/63 135/56 L 137/62 Pulse Oximetry 96 96 98 03/09/18 05:15 03/09/18 05:30 03/09/18 05:45 Temperature Pulse Rate 69 66 65 Respiratory Rate 14 20 20 Blood Pressure 143/76 H 137/67 137/65 Pulse Oximetry 100 100 100 03/09/18 06:00 03/09/18 06:15 03/09/18 06:30 Temperature Pulse Rate 64 63 63 Respiratory Rate 20 20 20 Blood Pressure 138/60 138/63 136/59 L Pulse Oximetry 99 98 97 03/09/18 06:45 03/09/18 07:00 03/09/18 07:15 Temperature Pulse Rate 61 61 60 Respiratory Rate 20 20 20 Blood Pressure 134/61 131/60 134/60 Pulse Oximetry 96 96 96 03/09/18 07:30 03/09/18 07:39 03/09/18 07:45 Temperature Pulse Rate 61 60 Respiratory Rate 20 20 20 Blood Pressure 132/58 L 130/57 L Pulse Oximetry 96 96 96 03/09/18 08:00 03/09/18 08:15 03/09/18 08:30 Temperature 99.0 F Pulse Rate 60 59 L 59 L Respiratory Rate 20 20 20 Blood Pressure 130/58 L 132/55 L 128/58 L Pulse Oximetry 96 96 96 03/09/18 08:45 03/09/18 09:00 03/09/18 09:15 Temperature Pulse Rate 59 L 60 61 Respiratory Rate 20 20 20 Blood Pressure 129/60 127/60 133/59 L Pulse Oximetry 96 97 98 03/09/18 09:30 03/09/18 09:45 03/09/18 10:00 Temperature Pulse Rate 62 64 65 Respiratory Rate 20 14 14 Blood Pressure 135/63 135/65 127/63 Pulse Oximetry 99 99 100 03/09/18 10:15 Temperature Pulse Rate 66 Respiratory Rate 14 Blood Pressure 130/61 Pulse Oximetry 100 Intake & Output 03/08/18 03/09/18 03/09/18 18:59 06:59 18:59 Intake Total 1200.5 / 1200.5 1150.5 / 1150.5 370 / 370 Output Total 1750 / 1750 1400 / 1400 Balance -549.5 / -549.5 -249.5 / -249.5 370 / 370 Weight 104.7 kg Intake: IV 1000.5 / 1000.5 1050.5 / 1050.5 370 / 370 Versed Inj 50 mg In 50 ml @ 2 50 / 50 20 / 20 MG/HR 2 mls/hr IV.CONT TITRATE PRN Rx#:[id number] SandoSTATIN Inj 500 MCG In NS 500.5 / 500.5 500.5 / 500.5 Inj 500 ML @ 50 MCG/HR 50.05 mls/hr IV.CONT .Q10H NAVID Rx#: [id number] Diprivan 1000 mg/100 ml Inj 1, 200 / 200 100 / 100 000 mg In 100 ml @ 5 MCG/KG/MIN 2.177 mls/hr IV.CONT TITRATE PRN Rx#:[id number] KCl 40 mEq Premix Inj 40 meq In 100 / 100 100 ml @ 25 mls/hr IV.SIG UNSCH PRN Rx#:[id number] Rocephin Inj 1,000 MG In NS Inj 100 / 100 100 ML @ 200 mls/hr IV.SIG Q24H NAVID Rx#:[id number] fentaNYL 10 mcg/mL Premix Drip 250 / 250 250 / 250 350 / 350 2,500 mcg In 250 ml @ 50 MCG/HR 5 mls/hr IV.SIG TITRATE PRN Rx #:[id number] Tube Irrigant 100 / 100 Anesthesia Amount 200 / 200 Output: Urine Amount (Catheter) 1750 / 1750 1400 / 1400 Indwelling Urethral Catheter 1750 / 1750 1400 / 1400 Other: Date of Last Bowel Movement 03/05/18 Result Diagrams: 03/08/18 05:00 03/09/18 05:00 Objective Remarks: GENERAL: Young male, lying in bed, intubated, sedated. HEENT: Normocephalic. Atraumatic. Pupils equal, round, reactive, conjugate. Mucous membranes are moist. Dobbhoff tube in place. NECK: Trachea is midline. There is no JVD. Right IJ introducer sheath in place , site is clean dry and intact CHEST: PRVC mode. FiO2 50%. Equal chest rise. CARDIOVASCULAR: Tachycardic rate, regular rhythm. Sinus. ABDOMEN: Soft, nontender, distended with a positive fluid wave. No guarding. MUSCULOSKELETAL: Pulses 2+. 1+ peripheral edema. NEUROLOGICAL: RASS -2. Withdraws to pain x4. Does not follow commands. 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 He remains very critically ill. start mobilizing fluids. will need repeat EGD. remains critically ill and off pathway. Neuro/Psych: Acute toxic metabolic encephalopathy Hepatic encephalopathy Midazolam/fentanyl/propofol drips for sedation/analgesia while intubated Goal of RASS -2 Daily sedation vacation ammonia elevated, but no way to administer lactulose at the present time. trend ammonia levels. start lactulose/rifaximin when able. CV: Acute hemorrhagic shock-resolved Lactic acidosis- slowly resolving Off pressors Serial lactates until cleared KVO IV fluids continue Lasix 40 mg IV every 12 hourly started on 03/05 to mobilize fluid in view of significant volume overload. Resp: Acute hypoxic and hypercarbic respiratory failure PRVC ventilation Albuterol/ipratropium aerosols every 4 hours with albuterol aerosols every 2 hours as needed dyspnea Ventilator bundle On 50 % FiO2, probable TRALI, fluid overload, shunting, restriction from large ascites. FiO2 requirement significantly decreased immediately after paracentesis done on 03/04 with removal of 3.5 L of ascitic fluid Start daily SBT tomorrow. GI: Upper GI bleed secondary to esophageal varices Liver cirrhosis Hepatitis C Elevated ammonia Status post upper endoscopy by Dr. Moeller on prior admission. Injected epinephrine. s/p repeat EGD 03/02: with variceal banding. Fantasma tube replaced with Dobbhoff during EGD on 03/08 s/p TIPS for recurrent variceal bleed with coiling of short gastric and cardiac varices on 03/07. pantoprazole drip at 8 mg an hour and octreotide drips at 50 mcg/hr trend ammonia. Unable to provide lactulose or rifaximin with Fantasma tube in place/acute bleed Large ascites noted, status post US guided paracentesis 03/04 with significant improvement in respiratory status after drainage of 3.5 L of ascitic fluid which appears transudative-cultures sent. GI okay to advance tube feeds : Acute kidney injury- resolving Raygoza cath catheter NICKOLAS secondary to hypovolemic shock Endo: Sliding scale insulin Accu-Cheks to maintain euglycemia Renal: Creatinine currently within normal limit Accurate I's and O's Monitor urine output Heme: Acute blood loss anemia Acute coagulopathy leukocytosis Thrombocytopenia DIC totals: 29 prbc 16 FFP 9 plt 4 cryo 1mg factor 7 2 doses of KCentra 2 doses of Vit K keep plt > 50k or 100k if active massive bleeding. serial CBC, coag goal hgb > 8 while active hemorrhage, INR < 1.4, fibrinogen > 150, plt > 100k. ID: ceftriaxone 1 g every 24 hours for upper GI bleed MSK: PT evaluate and treat FEN: Acute hypernatremia Replace electrolytes as clinically indicated Access -Utilize peripheral IV. Remove right femoral CVL on 03/05. Maintain right IJ sheath. Prophylaxis -GI -pantoprazole drip -DVT -SCD/pharmacological prophylaxis contraindicated with acute bleed Consulted palliative care to assist with deciding goals of therapy. D/W [employer] COUNSEL[employer]. Discussed with patient's mother at bedside, updated her regarding current clinical status and plan of care and she voiced understanding and was agreeable. This patient remains critically ill with one or more organ systems which are or may become a threat to life. I have spent in excess of 35 minutes discontinuously in the care and management of this patient. This time is exclusive of procedures, and includes, but is not limited to, evaluation of the patient, review of the medical record, discussions with family, consultants, nursing staff, or respiratory therapy, and documentation in the medical record.
[2018-03-09 14:06] LABS: Baso % (Auto) 0.5 % (0.0-2.0); Eos # (Auto) 0.4 th/mm3 (0.0-0.4); Eos % (Auto) 3.6 % (0.0-4.0); Lymph # (Auto) 1.4 th/mm3 (1.0-4.8); Lymph % (Auto) 14.4 % (9.0-44.0); Mean Corpuscular HGB Conc 33.3 % (32.0-36.0); Mean Corpuscular Hemoglobin 30.2 pg (27.0-34.0); Mean Corpuscular Volume 90.6 fL (80.0-100.0); Mean Platelet Volume 8.5 fL (7.0-11.0); Mono # (Auto) 0.7 th/mm3 (0.0-0.9); Mono % (Auto) 6.7 % (0.0-8.0); Neut # (Auto) 7.5 th/mm3 (1.8-7.7); Neut % (Auto) 74.8 % (16.0-70.0); Platelet Count 86 th/mm3 (150-450); Red Blood Count 3.97 mil/mm3 (4.50-5.90)
[2018-03-09 14:29] LABS: Platelet Morphology Normal (Normal); RBC Morphology Normal (Normal)
[2018-03-09] MEDS: Pantoprazole Inj 40 MG Vial IV.PUSH SCH (14:40)
[2018-03-10] MEDS: Oral Hygiene Kit OROPHARYNG SCH ×4 (02:10→17:21)
[2018-03-10] MEDS: Insulin NovoLIN Regular Correctional Sugar Inj SQ SCH ×4 (02:10→17:22)
[2018-03-10] MEDS: Propofol 1000 mg/100 ml Inj 1,000 MG/100 ML BOTTLE IV.CONT PRN ×3 (05:56→20:28)
[2018-03-10 06:01] LABS: Alanine Aminotransferase 55 U/L (12-78); Albumin 1.7 g/dL (3.4-5.0); Alkaline Phosphatase 90 U/L (45-117); Anion Gap 8 meq/L (5-15); Aspartate Aminotransferase 42 U/L (15-37); Blood Urea Nitrogen 16 mg/dL (7-18); Calcium 6.7 mg/dL (8.5-10.1); Carbon Dioxide 27.4 meq/L (21.0-32.0); Chloride 114 meq/L (98-107); Glomerular Filtration Rate Greater Than 89 mL/min (>89); Glucose,Random 112 mg/dL (74-106); Potassium 3.3 meq/L (3.5-5.1); Sodium 149 meq/L (136-145); Total Protein 5.1 g/dL (6.4-8.2)
[2018-03-10] MEDS: AMINOCAPROIC ACID 250 MG/ML NG/OG SCH ×3 (06:24→19:07)
[2018-03-10] MEDS: Senna/Docusate Sodium 8.6/50 MG Tablet PO SCH ×2 (09:11→20:11)
[2018-03-10] MEDS: rifAXIMin 550 MG Tablet PO SCH ×2 (09:11→20:11)
[2018-03-10] MEDS: Potassium Chlor 40 mEq Premix 40 MEQ/100 ML PIGGYBACK IV.SIG PRN (09:12)
[2018-03-10] MEDS: Artificial Tears Opth Drops 15 ML Bottle EACH EYE SCH ×3 (09:13→17:22)
[2018-03-10] MEDS: Midazolam 50 MG/50 ML Inj 50 MG/50 ML BAG IV.CONT PRN (09:14)
[2018-03-10] MEDS: Chlorhexidine 0.12% Oral Kit 15 ML UDC OROPHARYNG SCH ×2 (09:14→20:11)
[2018-03-10] MEDS: fentaNYL 10 mcg/mL Premix Drip 2,500 MCG/250 ML BAG IV.SIG PRN ×2 (09:34→23:26)
--- NOTE | 2018-03-10 10:21 | P.PNCC ---
Subjective Subjective Remarks/Hospital Course: Hospital Course: This is a 33-year-old male. Date of admission 03/01/2018. Past medical includes hepatitis C, known liver cirrhosis, esophageal varices patient was actually admitted 02/14 with upper GI bleed. Patient had 3 columns of 2-3 grade esophageal varices that evaluated Sean with banding.. Patient presents to [facility] 03/01 witha chief complaint of hematemesis. EMS reports that his initial blood pressure on their arrival was in the 70s-80s with a heart rate in the 150s. They state that he has put out copious amounts of hematemesis. Patient states that this began approximately 30 minutes prior to arrival. He does admit to fever and chills as well with abdominal pain. No headache no recent trauma. No chest pain or shortness of breath. Patient was emergently intubated and central line was placed in the femoral region. Hemoglobin is noted to be 5.2. Emergently transfused 3 units PRBCs. GI was consulted to try to perform an upper endoscopy revealed copious amounts of blood in the esophagus. Epinephrine injection was attempted. Fantasma tube was placed. IR was called. Repeat laboratories revealed significant coagulopathy with elevated INR/PTT and low fibrinogen. Unable to do intervention. State they do not tips at this facility. Patient needs to be stabilized prior to any transfer. Remains intubated on low-dose norepinephrine drip. Currently receiving K Centra, FFP and cryoprecipitate. Subjective: 03/02: remains in active hemorrhagic shock. bleeding continues to be uncontrolled. massive transfusion is ongoing. Totals currently: 22 prbc 16 FFP 4 plt 4 Cryo off levophed, but still actively bleeding, suctioning bright red blood from mouth and having bright red bloody bowel movements. Fantasma remains in place. lactate 11. remains acidotic. 03/03: remains intubated. bleeding has appeared to slow, but continues at a slow ooze. hgb now stable. platelets continue to drop in a combination of consumption and splenic sequestration. off vasopressors. likely plan for repeat EGD today. lactate is clearing, albeit slowly. totals: 29 prbc 16 FFP 9 plt 4 cryo 1mg factor 7 2 doses of KCentra 2 doses of Vit K 03/04: Remains sedated, orally intubated on mechanical ventilation. Fantasma tube remains in place. 03/05: Remains sedated, orally intubated on mechanical ventilation. Fantasma tube remains in place though it has been deflated. Hemoglobin remained stable at 12. 3.5 L of ascitic fluid drained with ultrasound guidance yesterday, fluid appears transudative. Following paracentesis FiO2 was decreased from 100- 50% and now is currently at 70%. Clinically significant volume overload persists with generalized anasarca scrotal edema. Initiating Lasix to mobilize fluids. Has been maintaining blood pressure for the last 48 hours. 03/06: remains intubated and sedated. hgb stable. GI wants to wait additional 24h before repeat EGD. remains volume overloaded. 03/07: Remains sedated, orally intubated on mechanical ventilation. Awaiting EGD with possible banding today by GI. Being diuresed. 03/08: Remains sedated, orally intubated on mechanical ventilation. Underwent TIPS procedure on 03/07 by interventional radiology. Awaiting EGD and colonoscopy today with possible removal of Fantasma tube and insertion of Dobbhoff. 03/09: Sedated, arousable, orally intubated on mechanical ventilation. Fantasma tube removed and replaced with Dobbhoff yesterday during EGD by GI 03/10: hgb stable. diuresing. more reinserted due to retention with severe scrotal edema. somnolent and decreasing sedation. on tube feeds. Objective Vital Signs / I&O: Vital Signs 03/09/18 10:15 03/09/18 10:30 03/09/18 10:45 Temperature Pulse Rate 66 67 68 Respiratory Rate 14 14 15 Blood Pressure 130/61 134/66 131/64 Pulse Oximetry 100 100 100 03/09/18 11:00 03/09/18 11:15 03/09/18 11:30 Temperature Pulse Rate 70 71 74 Respiratory Rate 19 16 16 Blood Pressure 137/63 138/63 139/65 Pulse Oximetry 100 100 100 03/09/18 11:32 03/09/18 11:45 03/09/18 12:00 Temperature 37.8 C H Pulse Rate 73 75 Respiratory Rate 15 16 16 Blood Pressure 137/61 139/64 Pulse Oximetry 99 100 100 03/09/18 12:15 03/09/18 12:30 03/09/18 12:45 Temperature Pulse Rate 74 77 84 Respiratory Rate 18 21 22 Blood Pressure 137/58 L 142/68 H 143/66 H Pulse Oximetry 99 99 98 03/09/18 13:00 03/09/18 13:15 03/09/18 13:30 Temperature Pulse Rate 80 78 77 Respiratory Rate 23 19 9 L Blood Pressure 149/72 H 148/73 H 134/65 Pulse Oximetry 100 97 98 03/09/18 13:45 03/09/18 14:00 03/09/18 14:15 Temperature Pulse Rate 80 77 84 Respiratory Rate 15 22 8 L Blood Pressure 141/69 H 139/66 141/66 H Pulse Oximetry 98 98 98 03/09/18 14:30 03/09/18 14:45 03/09/18 15:00 Temperature Pulse Rate 82 78 84 Respiratory Rate 30 H 22 16 Blood Pressure 155/72 H 145/67 H 143/68 H Pulse Oximetry 98 97 97 03/09/18 15:15 03/09/18 15:30 03/09/18 15:45 Temperature Pulse Rate 80 80 80 Respiratory Rate 26 H 28 H 20 Blood Pressure 143/67 H 152/76 H 149/76 H Pulse Oximetry 98 99 99 03/09/18 16:00 03/09/18 16:15 03/09/18 16:30 Temperature 37.8 C H Pulse Rate 82 88 89 Respiratory Rate 25 H 25 H 32 H Blood Pressure 157/76 H 160/76 H 161/79 H Pulse Oximetry 98 98 98 03/09/18 16:45 03/09/18 17:00 03/09/18 17:15 Temperature Pulse Rate 81 79 78 Respiratory Rate 33 H 22 24 Blood Pressure 134/71 138/65 145/74 H Pulse Oximetry 97 98 96 03/09/18 17:30 03/09/18 17:45 03/09/18 18:00 Temperature Pulse Rate 75 77 76 Respiratory Rate 26 H 26 H 25 H Blood Pressure 128/71 140/73 142/71 H Pulse Oximetry 97 98 99 03/09/18 21:04 03/09/18 22:00 03/09/18 23:33 Temperature Pulse Rate 72 73 Respiratory Rate 16 19 Blood Pressure Pulse Oximetry 100 96 03/10/18 00:00 03/10/18 01:00 03/10/18 02:00 Temperature Pulse Rate 72 69 67 Respiratory Rate 14 14 Blood Pressure 141/63 H 134/60 Pulse Oximetry 97 96 03/10/18 03:00 03/10/18 04:00 03/10/18 04:20 Temperature 37.5 C Pulse Rate 67 65 Respiratory Rate 14 14 16 Blood Pressure 136/65 129/58 L Pulse Oximetry 98 98 98 03/10/18 05:00 03/10/18 06:00 03/10/18 08:17 Temperature Pulse Rate 64 67 Respiratory Rate 14 14 17 Blood Pressure 132/60 137/63 Pulse Oximetry 98 97 97 Intake & Output 03/09/18 03/10/18 03/10/18 18:59 06:59 18:59 Intake Total 970.5 / 970.5 2511.5 / 2511.5 150 / 150 Output Total 2825 / 2825 1000 / 1000 Balance -1854.5 / -1854.5 1511.5 / 1511.5 150 / 150 Weight 102.7 kg Intake: IV 970.5 / 970.5 1979.5 / 1979. 150 / 150 Versed Inj 50 mg In 50 ml @ 2 20 / 20 30 / 30 50 / 50 MG/HR 2 mls/hr IV.CONT TITRATE PRN Rx#:[id number] SandoSTATIN Inj 500 MCG In NS 500.5 / 500.5 500.5 / 500.5 Inj 500 ML @ 50 MCG/HR 50.05 mls/hr IV.CONT .Q10H [facility] Rx#: [id number] Diprivan 1000 mg/100 ml Inj 1, 100 / 100 100 / 100 000 mg In 100 ml @ 5 MCG/KG/MIN 2.177 mls/hr IV.CONT TITRATE PRN Rx#:[id number] D10W Inj 1,000 ML @ 30 mls/hr 1000 / 1000 IV.SIG .Q24H [facility] Rx#:[id number] Rocephin Inj 1,000 MG In NS Inj 200 / 200 100 ML @ 200 mls/hr IV.SIG Q24H [facility] Rx#:[id number] fentaNYL 10 mcg/mL Premix Drip 350 / 350 150 / 150 100 / 100 2,500 mcg In 250 ml @ 50 MCG/HR 5 mls/hr IV.SIG TITRATE PRN Rx #:[id number] Tube Feeding 531 / 531 Output: Urine 1000 / 1000 Urine Amount (Catheter) 2825 / 2825 Indwelling Urethral Catheter 2825 / 2825 Other: Date of Last Bowel Movement 03/05/18 # Incontinent Bowel Movements 0 Result Diagrams: 03/09/18 13:46 03/10/18 04:30 Objective Remarks: GENERAL: Young male, lying in bed, intubated, sedated. HEENT: Normocephalic. Atraumatic. Pupils equal, round, reactive, conjugate. Mucous membranes are moist. Dobbhoff tube in place. NECK: Trachea is midline. There is no JVD. Right IJ introducer sheath in place , site is clean dry and intact CHEST: PRVC mode. FiO2 35%. PEEP 5. Equal chest rise. CARDIOVASCULAR: normal rate, regular rhythm. Sinus. ABDOMEN: Soft, nontender, distended with a positive fluid wave. No guarding. MUSCULOSKELETAL: Pulses 2+. 1+ peripheral edema. NEUROLOGICAL: RASS -2. Withdraws to pain x4. Does not follow commands. 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 He remains very critically ill. mobilizing fluids. continue to wean sedation. work towards weaning mechanical ventilation. off pathway, not improving as we would expect. if we withdraw support, he would . critically ill. Neuro/Psych: Acute toxic metabolic encephalopathy- persistent Hepatic encephalopathy d/c versed drip continue propofol and fentanyl goal RASS -2 Daily sedation vacation check ammonia tomorrow start lactulose q6h rifaximin CV: Acute hemorrhagic shock-resolved Lactic acidosis- resolved Off pressors KVO IV fluids increase lasix to q6h Resp: Acute hypoxic and hypercarbic respiratory failure- persistent, improving PRVC ventilation Albuterol/ipratropium aerosols every 4 hours with albuterol aerosols every 2 hours as needed dyspnea Ventilator bundle improving fio2. start SBTs today. GI: Upper GI bleed secondary to esophageal varices Liver cirrhosis Hepatitis C Elevated ammonia Status post upper endoscopy by Dr. Moeller on prior admission. Injected epinephrine. s/p repeat EGD 03/02: with variceal banding. Fantasma tube replaced with Dobbhoff during EGD on 03/08 s/p TIPS for recurrent variceal bleed with coiling of short gastric and cardiac varices on 03/07. pantoprazole drip at 8 mg an hour lactulose/rifaximin trend ammonia levels on Spironolactone 100mg po daily on iv lasix start 5mg propranolol TID-- too hypotensive and bradycardic to increase higher. Large ascites noted, status post US guided paracentesis 03/04 with significant improvement in respiratory status after drainage of 3.5 L of ascitic fluid which appears transudative-cultures sent. GI okay to advance tube feeds : Acute kidney injury- resolving More cath catheter N[place]OLAS secondary to hypovolemic shock Endo: Sliding scale insulin Accu-Cheks to maintain euglycemia Renal: Creatinine currently within normal limit Accurate I's and O's Monitor urine output Heme: Acute blood loss anemia Acute coagulopathy - resolved leukocytosis Thrombocytopenia DIC- resolved totals: 29 prbc 16 FFP 9 plt 4 cryo 1mg factor 7 2 doses of KCentra 2 doses of Vit K keep plt > 50k or 100k if active massive bleeding. serial CBC, coag goal hgb > 8 while active hemorrhage, INR < 1.4, fibrinogen > 150, plt > 100k. ID: ceftriaxone 1 g every 24 hours for upper GI bleed MSK: PT evaluate and treat FEN: Acute hypernatremia metabolic alkalosis Replace electrolytes as clinically indicated start free water 200mL po q6h diamox 500mg iv q8h x 3 doses Access -Utilize peripheral IV. d/c right IJ CVL. Prophylaxis -GI -pantoprazole drip -DVT -SCD/pharmacological prophylaxis contraindicated with acute bleed Consulted palliative care to assist with deciding goals of therapy. D/W CUSTOMER ENGAGEMENT ANALYST. Discussed with patient's mother at bedside, updated her regarding current clinical status and plan of care and she voiced understanding and was agreeable. This patient remains critically ill with one or more organ systems which are or may become a threat to life. I have spent in excess of 41 minutes discontinuously in the care and management of this patient. This time is exclusive of procedures, and includes, but is not limited to, evaluation of the patient, review of the medical record, discussions with family, consultants, nursing staff, or respiratory therapy, and documentation in the medical record.
--- NOTE | 2018-03-10 12:28 | P.PNGI ---
Subjective Interval history: Continues with ventilator management does have some minimal response to tactile stimulation generalized edema last hemoglobin 12 PT/INR 1.3 bilirubin 2.2 AST 42 ALT 55 No family members in room Physical Exam Vital signs: Vital Signs 03/09/18 12:30 03/09/18 12:45 03/09/18 13:00 Temperature Pulse Rate 77 84 80 Respiratory Rate 21 22 23 Blood Pressure 142/68 H 143/66 H 149/72 H Pulse Oximetry 99 98 100 03/09/18 13:15 03/09/18 13:30 03/09/18 13:45 Temperature Pulse Rate 78 77 80 Respiratory Rate 19 9 L 15 Blood Pressure 148/73 H 134/65 141/69 H Pulse Oximetry 97 98 98 03/09/18 14:00 03/09/18 14:15 03/09/18 14:30 Temperature Pulse Rate 77 84 82 Respiratory Rate 22 8 L 30 H Blood Pressure 139/66 141/66 H 155/72 H Pulse Oximetry 98 98 98 03/09/18 14:45 03/09/18 15:00 03/09/18 15:15 Temperature Pulse Rate 78 84 80 Respiratory Rate 22 16 26 H Blood Pressure 145/67 H 143/68 H 143/67 H Pulse Oximetry 97 97 98 03/09/18 15:30 03/09/18 15:45 03/09/18 16:00 Temperature 100.0 F H Pulse Rate 80 80 82 Respiratory Rate 28 H 20 25 H Blood Pressure 152/76 H 149/76 H 157/76 H Pulse Oximetry 99 99 98 03/09/18 16:15 03/09/18 16:30 03/09/18 16:45 Temperature Pulse Rate 88 89 81 Respiratory Rate 25 H 32 H 33 H Blood Pressure 160/76 H 161/79 H 134/71 Pulse Oximetry 98 98 97 03/09/18 17:00 03/09/18 17:15 03/09/18 17:30 Temperature Pulse Rate 79 78 75 Respiratory Rate 22 24 26 H Blood Pressure 138/65 145/74 H 128/71 Pulse Oximetry 98 96 97 03/09/18 17:45 03/09/18 18:00 03/09/18 21:04 Temperature Pulse Rate 77 76 72 Respiratory Rate 26 H 25 H 16 Blood Pressure 140/73 142/71 H Pulse Oximetry 98 99 100 03/09/18 22:00 03/09/18 23:33 03/10/18 00:00 Temperature Pulse Rate 73 72 Respiratory Rate 19 Blood Pressure Pulse Oximetry 96 03/10/18 01:00 03/10/18 02:00 03/10/18 03:00 Temperature Pulse Rate 69 67 67 Respiratory Rate 14 14 14 Blood Pressure 141/63 H 134/60 136/65 Pulse Oximetry 97 96 98 03/10/18 04:00 03/10/18 04:20 03/10/18 05:00 Temperature 99.5 F Pulse Rate 65 64 Respiratory Rate 14 16 14 Blood Pressure 129/58 L 132/60 Pulse Oximetry 98 98 98 03/10/18 06:00 03/10/18 07:00 03/10/18 08:00 Temperature 99.9 F H Pulse Rate 67 72 68 Respiratory Rate 14 18 18 Blood Pressure 137/63 145/69 H 131/58 L Pulse Oximetry 97 99 97 03/10/18 08:17 03/10/18 10:00 Temperature Pulse Rate 66 Respiratory Rate 17 Blood Pressure Pulse Oximetry 97 Intake & Output 03/09/18 03/10/18 03/10/18 18:59 06:59 18:59 Intake Total 970.5 / 970.5 2511.5 / 2511.5 150 / 150 Output Total 2825 / 2825 1000 / 1000 Balance -1854.5 / -1854.5 1511.5 / 1511.5 150 / 150 Weight 102.7 kg Intake: IV 970.5 / 970.5 1980.5 / 1979.5 150 / 150 Versed Inj 50 mg In 50 ml @ 2 20 / 20 30 / 30 50 / 50 MG/HR 2 mls/hr IV.CONT TITRATE PRN Rx#:[id number] SandoSTATIN Inj 500 MCG In NS 500.5 / 500.5 500.5 / 500.5 Inj 500 ML @ 50 MCG/HR 50.05 mls/hr IV.CONT .Q10H [facility] Rx#: [id number] Diprivan 1000 mg/100 ml Inj 1, 100 / 100 100 / 100 000 mg In 100 ml @ 5 MCG/KG/MIN 2.177 mls/hr IV.CONT TITRATE PRN Rx#:[id number] D10W Inj 1,000 ML @ 30 mls/hr 1000 / 1000 IV.SIG .Q24H [facility] Rx#:[id number] Rocephin Inj 1,000 MG In NS Inj 200 / 200 100 ML @ 200 mls/hr IV.SIG Q24H [facility] Rx#:[id number] fentaNYL 10 mcg/mL Premix Drip 350 / 350 150 / 150 100 / 100 2,500 mcg In 250 ml @ 50 MCG/HR 5 mls/hr IV.SIG TITRATE PRN Rx #:[id number] Tube Feeding 531 / 531 Output: Urine 1000 / 1000 Urine Amount (Catheter) 2825 / 2825 Indwelling Urethral Catheter 2825 / 2825 Other: Date of Last Bowel Movement 03/05/18 03/05/18 # Incontinent Bowel Movements 0 - Constitutional mild distress, chronically ill appearing, disheveled, somnolent (Mild decrease in sedation per critical care) - Routine HEENT Exam Head: Present: normocephalic ( edema) ENT: Present: mucous membranes moist - Routine Respiratory Exam Present: patient mechanically ventilated - Routine Cardiovascular Exam Present: S1, S2 - Routine Abdominal Exam Present: soft, distended (Round, obese, mild to moderate distention) - Routine Skin Exam Present: intact (Multiple tattoos) - Urinary Catheter Management Indwelling Urethral Catheter Cath placed during this visit: yes Reason for continuing: Acute urinary retention Insertion date: 03/08/18 Insertion time: 10:30 Condom Cath placed during this visit: no Reason for continuing: Not indwelling catheter Results - Labs CBC & Chem 7: 03/09/18 13:46 03/10/18 04:30 Laboratory Results - last 24 hr 03/09/18 03/09/18 03/09/18 13:46 17:00 17:00 WBC 10.0 RBC 3.97 L Hgb 12.0 L Hct 36.0 L MCV 90.6 MCH 30.2 MCHC 33.3 RDW 16.0 Plt Count 86 L MPV 8.5 Prelim Diff (Auto) Slide review pending Neut % (Auto) 74.8 H Lymph % (Auto) 14.4 [place] % (Auto) 6.7 Eos % (Auto) 3.6 Baso % (Auto) 0.5 Neut # (Auto) 7.5 Lymph # (Auto) 1.4 [place] # (Auto) 0.7 Eos # (Auto) 0.4 Baso # (Auto) 0.0 WBC Differential . Diff Scan Auto diff confirmed Differential Comment . Platelet Estimate Low L Platelet Morphology Normal RBC Morphology Normal Sodium Potassium Chloride Carbon Dioxide Anion Gap BUN Creatinine Estimated GFR POC Glucose Random Glucose Calcium Prot Corrected Calcium Total Bilirubin AST ALT Alkaline Phosphatase Total Protein Albumin Tumor Marker AFP 3.2 CA 19-9 Antigen 27.2 03/09/18 03/09/18 03/09/18 17:00 17:40 23:51 WBC RBC Hgb Hct MCV MCH MCHC RDW Plt Count MPV Prelim Diff (Auto) Neut % (Auto) Lymph % (Auto) [place] % (Auto) Eos % (Auto) Baso % (Auto) Neut # (Auto) Lymph # (Auto) [place] # (Auto) Eos # (Auto) Baso # (Auto) WBC Differential Diff Scan Differential Comment Platelet Estimate Platelet Morphology RBC Morphology Sodium Potassium 3.6 Chloride Carbon Dioxide Anion Gap BUN Creatinine Estimated GFR POC Glucose 100 123 H Random Glucose Calcium Prot Corrected Calcium Total Bilirubin AST ALT Alkaline Phosphatase Total Protein Albumin Tumor Marker AFP CA 19-9 Antigen 03/10/18 03/10/18 04:30 11:14 WBC RBC Hgb Hct MCV MCH MCHC RDW Plt Count MPV Prelim Diff (Auto) Neut % (Auto) Lymph % (Auto) [place] % (Auto) Eos % (Auto) Baso % (Auto) Neut # (Auto) Lymph # (Auto) [place] # (Auto) Eos # (Auto) Baso # (Auto) WBC Differential Diff Scan Differential Comment Platelet Estimate Platelet Morphology RBC Morphology Sodium 149 H Potassium 3.3 L Chloride 114 H Carbon Dioxide 27.4 Anion Gap 8 BUN 16 Creatinine 0.56 L Estimated GFR Greater than 89 POC Glucose 92 Random Glucose 112 H Calcium 6.7 L* Prot Corrected Calcium 7.7 L Total Bilirubin 2.2 H AST 42 H ALT 55 Alkaline Phosphatase 90 Total Protein 5.1 L Albumin 1.7 L Tumor Marker AFP CA 19-9 Antigen Assessment and Plan - Plan Assessment Upper GI bleeding secondary to esophageal varices S/P EGD (03/02)> large amount of blood in stomach. Fresh blood in the esophagus. Arterial lookingcould not be washed. Ulcers from previous banding site seenpossible source of bleeding, injected with epinephrine 6 mLBlakemore tube placed IR was consulted for TIPS, however this was cancelled because of labs indicative of severe coagulopathy Pt evaluated by hematology, recommending transfusion of platelets to maintain plts around 50,000. Noted that the problem is likely related to hepatic dysfunction. Fantasma deflated on 02/02 - Cirrhosis secondary to hepatitis C and EtOH abuse with complications of portal hypertension, coagulopathy, and recurrent GI bleed Hepatitis C, genotype 1 a, quant > 2 million - Ascites S/P paracentesis 03/05 --> 3.5 L of ascitic fluid drained by [facility] bedside. Fluid culture negative at 48 hours - Hyperammonemia- on Xifaxan and Lactulose 03/09/2018, patient does arouse to abdominal palpation. Patient is status post EGD and status post TIPS procedure. Mother is hopeful for liver transplant in the future, fair to poor prognosis. Peritoneal culture reviewed. Current hemoglobin 11.9 WBC count 9.2 Fantasma tube removed after EGD esophageal varices grade 2 no banding done status post TIPS cold and appliance per IR, portal gastropathy, old blood in stomach, hiatal hernia. AFP level to rule out liver mass. Patient is currently managed on Rocephin. 03/10/2018, continues with generalized edema will increase Aldactone to 150 daily, noted increased IV Lasix dose today with some increase in diuresis. Will monitor ammonia level since patient is status post TIPS. Okay for low- dose beta-raciel but not going to be necessary for long-term use since patient is status post TIPS. Continue tube feeds until goal rate Plan Diet tube feeds until goal rate currently 40 cc an hour Increase Aldactone dose to 150 daily Agree with increased Lasix dose IV every 6h Check ammonia level Monitor labs EGD recheck in 6 weeks Supportive care Agree with palliative care input for long-term as well as short-term goals Patient was seen per myself and Dr. Rice , note was written on his behalf
[2018-03-10] MEDS: Pantoprazole Inj 40 MG Vial IV.PUSH SCH (13:42)
[2018-03-10] MEDS: Propranolol 10 MG Tablet PO SCH ×2 (13:42→22:38)
[2018-03-10] MEDS: Potassium Chloride 25 MEQ Effervescent Tablet PO PRN (22:38)
[2018-03-11] MEDS: AMINOCAPROIC ACID 250 MG/ML NG/OG SCH ×5 (01:28→23:12)
[2018-03-11] MEDS: Oral Hygiene Kit OROPHARYNG SCH ×5 (01:29→23:15)
[2018-03-11] MEDS: Propofol 1000 mg/100 ml Inj 1,000 MG/100 ML BOTTLE IV.CONT PRN ×3 (01:29→09:01)
[2018-03-11] MEDS: Insulin NovoLIN Regular Correctional Sugar Inj SQ SCH ×5 (01:29→23:15)
[2018-03-11] MEDS: Propranolol 10 MG Tablet PO SCH ×3 (05:31→22:54)
--- NOTE | 2018-03-11 05:44 | XR ---
EXAM DATE: 03/11/2018 5:24 AM EST AGE/SEX: 33 years / Male INDICATIONS: Shortness of breath, possible pulmonary disease. CLINICAL DATA: This is the patient's subsequent encounter. Patient reports that signs and symptoms h ave been present for 2 days and indicates a pain score of Nonresponsive. MEDICAL/SURGICAL HISTORY: Cirrhosis. Hepatitis C. Hypertension. A-Fib. None. COMPARISON: [facility] [place]ST 1V SINGLE AP, 03/08/2018. . FINDINGS: Single AP view the chest. Endotracheal tube remains in place. Nasogastric tube is in place. Right IJ central venous catheter is no longer seen. Mild diffuse hazy opacity in left lung is new. No evidence of pneumothorax. Mild patchy right lower lung zone opacity unchanged. Metallic coils are seen in the upper midabdomen. CONCLUSION: 1. Nasogastric tube and endotracheal tube in place. 2. Mild hazy diffuse left lung opacity and mild patchy right lung base opacity. Electronically signed by: Thien An MD 03/11/2018 5:42 AM EST
--- NOTE | 2018-03-11 08:06 | P.PNCC ---
Subjective Subjective Remarks/Hospital Course: Hospital Course: This is a 33-year-old male. Date of admission 03/01/2018. Past medical includes hepatitis C, known liver cirrhosis, esophageal varices patient was actually admitted 02/14 with upper GI bleed. Patient had 3 columns of 2-3 grade esophageal varices that evaluated Sean with banding.. Patient presents to [facility] 03/01 witha chief complaint of hematemesis. EMS reports that his initial blood pressure on their arrival was in the 70s-80s with a heart rate in the 150s. They state that he has put out copious amounts of hematemesis. Patient states that this began approximately 30 minutes prior to arrival. He does admit to fever and chills as well with abdominal pain. No headache no recent trauma. No chest pain or shortness of breath. Patient was emergently intubated and central line was placed in the femoral region. Hemoglobin is noted to be 5.2. Emergently transfused 3 units PRBCs. GI was consulted to try to perform an upper endoscopy revealed copious amounts of blood in the esophagus. Epinephrine injection was attempted. Fantasma tube was placed. IR was called. Repeat laboratories revealed significant coagulopathy with elevated INR/PTT and low fibrinogen. Unable to do intervention. State they do not tips at this facility. Patient needs to be stabilized prior to any transfer. Remains intubated on low-dose norepinephrine drip. Currently receiving K Centra, FFP and cryoprecipitate. Subjective: 03/02: remains in active hemorrhagic shock. bleeding continues to be uncontrolled. massive transfusion is ongoing. Totals currently: 22 prbc 16 FFP 4 plt 4 Cryo off levophed, but still actively bleeding, suctioning bright red blood from mouth and having bright red bloody bowel movements. Fantasma remains in place. lactate 11. remains acidotic. 03/03: remains intubated. bleeding has appeared to slow, but continues at a slow ooze. hgb now stable. platelets continue to drop in a combination of consumption and splenic sequestration. off vasopressors. likely plan for repeat EGD today. lactate is clearing, albeit slowly. totals: 29 prbc 16 FFP 9 plt 4 cryo 1mg factor 7 2 doses of KCentra 2 doses of Vit K 03/04: Remains sedated, orally intubated on mechanical ventilation. Fantasma tube remains in place. 03/05: Remains sedated, orally intubated on mechanical ventilation. Fantasma tube remains in place though it has been deflated. Hemoglobin remained stable at 12. 3.5 L of ascitic fluid drained with ultrasound guidance yesterday, fluid appears transudative. Following paracentesis FiO2 was decreased from 100- 50% and now is currently at 70%. Clinically significant volume overload persists with generalized anasarca scrotal edema. Initiating Lasix to mobilize fluids. Has been maintaining blood pressure for the last 48 hours. 03/06: remains intubated and sedated. hgb stable. GI wants to wait additional 24h before repeat EGD. remains volume overloaded. 03/07: Remains sedated, orally intubated on mechanical ventilation. Awaiting EGD with possible banding today by GI. Being diuresed. 03/08: Remains sedated, orally intubated on mechanical ventilation. Underwent TIPS procedure on 03/07 by interventional radiology. Awaiting EGD and colonoscopy today with possible removal of Fantasma tube and insertion of Dobbhoff. 03/09: Sedated, arousable, orally intubated on mechanical ventilation. Fantasma tube removed and replaced with Dobbhoff yesterday during EGD by GI 03/10: hgb stable. diuresing. more reinserted due to retention with severe scrotal edema. somnolent and decreasing sedation. on tube feeds. 03/11: Patient remains hemodynamically stable. Good urine output more than 6 L with forced diuresis. Awake on sedation will start weaning trial for possible extubation. Hemoglobin pending at this time Objective Vital Signs / I&O: Vital Signs 03/10/18 08:00 03/10/18 08:17 03/10/18 10:00 Temperature 99.9 F H Pulse Rate 66 66 Respiratory Rate 18 17 Blood Pressure 131/58 L Pulse Oximetry 97 97 03/10/18 10:30 03/10/18 10:45 03/10/18 11:00 Temperature Pulse Rate 70 71 72 Respiratory Rate 18 21 10 L Blood Pressure 127/61 132/62 136/65 Pulse Oximetry 97 96 96 03/10/18 11:15 03/10/18 11:30 03/10/18 11:45 Temperature Pulse Rate 72 73 75 Respiratory Rate 0 L 4 L 13 Blood Pressure 137/65 138/66 133/67 Pulse Oximetry 98 98 98 03/10/18 12:00 03/10/18 12:15 03/10/18 13:00 Temperature 98.9 F Pulse Rate 75 75 74 Respiratory Rate 13 15 18 Blood Pressure 134/66 132/62 130/59 L Pulse Oximetry 98 97 96 03/10/18 14:00 03/10/18 15:00 03/10/18 15:35 Temperature Pulse Rate 71 67 Respiratory Rate 18 18 20 Blood Pressure 133/67 131/65 Pulse Oximetry 98 99 99 03/10/18 16:00 03/10/18 17:00 03/10/18 18:00 Temperature 98.5 F Pulse Rate 76 71 80 Respiratory Rate 20 18 31 H Blood Pressure 135/70 135/65 147/87 H Pulse Oximetry 100 100 98 03/10/18 19:00 03/10/18 20:00 03/10/18 21:00 Temperature 101 F H Pulse Rate 97 H 85 74 Respiratory Rate 27 H 14 14 Blood Pressure 154/95 H 140/64 125/57 L Pulse Oximetry 100 94 L 98 03/10/18 21:08 03/10/18 22:00 03/10/18 23:00 Temperature Pulse Rate 72 71 68 Respiratory Rate 15 12 15 Blood Pressure 124/57 L 127/62 Pulse Oximetry 98 95 100 03/10/18 23:41 03/11/18 00:00 03/11/18 01:00 Temperature 99.1 F Pulse Rate 68 67 Respiratory Rate 15 14 16 Blood Pressure 122/60 125/58 L Pulse Oximetry 100 100 100 03/11/18 02:00 03/11/18 03:00 03/11/18 04:00 Temperature 99.2 F Pulse Rate 67 67 76 Respiratory Rate 17 13 18 Blood Pressure 126/58 L 124/58 L 126/65 Pulse Oximetry 100 100 100 03/11/18 04:02 03/11/18 05:00 03/11/18 06:00 Temperature Pulse Rate 70 74 Respiratory Rate 16 12 Blood Pressure 118/57 L Pulse Oximetry 100 100 Intake & Output 03/10/18 03/11/18 03/11/18 18:59 06:59 18:59 Intake Total 931 / 931 1282 / 1282 Output Total 2900 / 2900 3150 / 3150 Balance -1969 / -1968 -1868 / -1868 Weight 99.3 kg Intake: IV 354 / 354 550 / 550 Versed Inj 50 mg In 50 ml @ 2 54 / 54 MG/HR 2 mls/hr IV.CONT TITRATE PRN Rx#:[id number] Diprivan 1000 mg/100 ml Inj 1, 100 / 100 300 / 300 000 mg In 100 ml @ 5 MCG/KG/MIN 2.177 mls/hr IV.CONT TITRATE PRN Rx#:[id number] KCl 40 mEq Premix Inj 40 meq In 100 / 100 100 ml @ 25 mls/hr IV.SIG UNSCH PRN Rx#:[id number] Rocephin Inj 1,000 MG In NS Inj 100 / 100 100 ML @ 200 mls/hr IV.SIG Q24H NAVID Rx#:[id number] fentaNYL 10 mcg/mL Premix Drip 100 / 100 150 / 150 2,500 mcg In 250 ml @ 50 MCG/HR 5 mls/hr IV.SIG TITRATE PRN Rx #:[id number] Tube Feeding 577 / 577 332 / 332 Water Bolus Amount 400 / 400 Output: Urine Amount (Catheter) 2900 / 2900 3150 / 3150 Indwelling Urethral Catheter 2900 / 2900 3150 / 3150 Other: Date of Last Bowel Movement 03/05/18 03/11/18 Result Diagrams: 03/09/18 13:46 03/10/18 20:09 Objective Remarks: GENERAL: Young male, lying in bed, intubated, sedated. HEENT: Normocephalic. Atraumatic. Pupils equal, round, reactive, conjugate. Dobbhoff tube in place. NECK: Trachea is midline. There is no JVD. CHEST: PRVC mode. FiO2 35%. PEEP 5. Equal chest rise. CARDIOVASCULAR: normal rate, regular rhythm. Sinus. ABDOMEN: Soft, nontender, distended with a positive fluid wave. No guarding. MUSCULOSKELETAL: Pulses 2+. 1+ peripheral edema. NEUROLOGICAL: RASS -1. Withdraws to pain x4. Eyes are spontaneously open, appears to follow commands. 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 He remains very critically ill. mobilizing fluids. continue to wean sedation. work towards weaning mechanical ventilation. critically ill. Neuro/Psych: Acute toxic metabolic encephalopathy- persistent Hepatic encephalopathy continue propofol and fentanyl goal RASS -1 Daily sedation vacation Ammonia 63, 03/11 lactulose q6h rifaximin CV: Acute hemorrhagic shock-resolved Lactic acidosis- resolved Off pressors KVO IV fluids lasix to q6h, also receiving Diamox Resp: Acute hypoxic and hypercarbic respiratory failure- persistent, improving PRVC ventilation Albuterol/ipratropium aerosols every 4 hours with albuterol aerosols every 2 hours as needed dyspnea Ventilator bundle, improving fio2. start SBTs today, for possible extubation GI: Upper GI bleed secondary to esophageal varices Liver cirrhosis Hepatitis C Elevated ammonia Status post upper endoscopy by Dr. Moeller on prior admission. Injected epinephrine. s/p repeat EGD 03/02: with variceal banding. Fantasma tube replaced with Dobbhoff during EGD on 03/08 s/p TIPS for recurrent variceal bleed with coiling of short gastric and cardiac varices on 03/07. pantoprazole drip at 8 mg an hour lactulose/rifaximin trend ammonia levels on Spironolactone 100mg po daily on iv lasix 5mg propranolol TID-- too hypotensive and bradycardic to increase higher. Large ascites noted, status post US guided paracentesis 03/04 with significant improvement in respiratory status after drainage of 3.5 L of ascitic fluid which appears transudative-cultures sent. GI okay to advance tube feeds : Acute kidney injury- resolving More cath catheter NICKOLAS secondary to hypovolemic shock Endo: Sliding scale insulin Accu-Cheks to maintain euglycemia Renal: Creatinine currently within normal limit Accurate I's and O's Monitor urine output Heme: Acute blood loss anemia Acute coagulopathy - resolved leukocytosis Thrombocytopenia DIC- resolved totals: 29 prbc 16 FFP 9 plt 4 cryo 1mg factor 7 2 doses of KCentra 2 doses of Vit K keep plt > 50k or 100k if active massive bleeding. serial CBC, coag goal hgb > 8 while active hemorrhage, INR < 1.4, fibrinogen > 150, plt > 100k. ID: ceftriaxone 1 g every 24 hours for upper GI bleed, SBP prophylaxis MSK: PT evaluate and treat FEN: Acute hypernatremia metabolic alkalosis Replace electrolytes as clinically indicated free water 200mL po q6h diamox 500mg iv q8h x 3 doses Labs today are pending Access -Utilize peripheral IV. d/cd right IJ CVL. Prophylaxis -GI -pantoprazole drip -DVT -SCD/pharmacological prophylaxis contraindicated with acute bleed Consulted palliative care to assist with deciding goals of therapy. D/W STUDIO TECHNICIAN. Discussed with patient's mother at bedside, updated her regarding current clinical status and plan of care and she voiced understanding and was agreeable. This patient remains critically ill with one or more organ systems which are or may become a threat to life. I have spent in excess of 41 minutes discontinuously in the care and management of this patient. This time is exclusive of procedures, and includes, but is not limited to, evaluation of the patient, review of the medical record, discussions with family, consultants, nursing staff, or respiratory therapy, and documentation in the medical record. Level 3
[2018-03-11] MEDS: Senna/Docusate Sodium 8.6/50 MG Tablet PO SCH ×2 (09:29→20:06)
[2018-03-11] MEDS: Artificial Tears Opth Drops 15 ML Bottle EACH EYE SCH ×3 (09:42→17:40)
[2018-03-11] MEDS: rifAXIMin 550 MG Tablet PO SCH ×2 (09:43→20:06)
[2018-03-11] MEDS: Chlorhexidine 0.12% Oral Kit 15 ML UDC OROPHARYNG SCH ×2 (09:43→19:35)
[2018-03-11 12:14] LABS: Hematocrit 41.5 % (39.0-51.0); Hemoglobin 13.5 gm/dL (13.0-17.0); Mean Corpuscular HGB Conc 32.5 % (32.0-36.0); Mean Corpuscular Hemoglobin 29.5 pg (27.0-34.0); Mean Corpuscular Volume 90.8 fL (80.0-100.0); Mean Platelet Volume 8.5 fL (7.0-11.0); Platelet Count 124 th/mm3 (150-450); Red Blood Count 4.57 mil/mm3 (4.50-5.90); Red Cell Distribution Width 16.6 % (11.6-17.2); White Blood Count 13.9 th/mm3 (4.0-11.0)
[2018-03-11 12:17] LABS: INR 1.3 Ratio; Prothrombin Time 12.7 sec (9.8-11.6)
[2018-03-11 12:41] LABS: Alanine Aminotransferase 54 U/L (12-78); Albumin 2.2 g/dL (3.4-5.0); Alkaline Phosphatase 117 U/L (45-117); Anion Gap 9 meq/L (5-15); Aspartate Aminotransferase 54 U/L (15-37); Blood Urea Nitrogen 11 mg/dL (7-18); Calcium 7.9 mg/dL (8.5-10.1); Carbon Dioxide 23.9 meq/L (21.0-32.0); Chloride 111 meq/L (98-107); Glomerular Filtration Rate Greater Than 89 mL/min (>89); Glucose,Random 87 mg/dL (74-106); Phosphorus 3.6 mg/dL (2.5-4.9); Potassium 3.8 meq/L (3.5-5.1); Sodium 144 meq/L (136-145); Total Protein 6.3 g/dL (6.4-8.2)
--- NOTE | 2018-03-11 13:34 | P.PNGI ---
Subjective Interval history: Continues in the intensive care setting sedation has been weaned down to the point the patient is awake and nods his head to simple yes or no questions. Mother is in the room and seems to be pleased with patient's slow progressive state. Dark thin liquid stool x2 today, but constipation has been noted. Patient now with NG tube connected to low intermittent suction with biliary return approximately 275 cc over the past 2 hours. Minimal if any bowel sounds noted. Ammonia level 63. Heart rate sinus tach 104. Slow gradual ventilator weaning attempted <Ema Higuera - Last Filed: 03/11/18 13:24> Physical Exam Vital signs: Vital Signs 03/10/18 14:00 03/10/18 15:00 03/10/18 15:35 Temperature Pulse Rate 71 67 Respiratory Rate 18 18 20 Blood Pressure 133/67 131/65 Pulse Oximetry 98 99 99 03/10/18 16:00 03/10/18 17:00 03/10/18 18:00 Temperature 98.5 F Pulse Rate 76 71 80 Respiratory Rate 20 18 31 H Blood Pressure 135/70 135/65 147/87 H Pulse Oximetry 100 100 98 03/10/18 19:00 03/10/18 20:00 03/10/18 21:00 Temperature 101 F H Pulse Rate 97 H 85 74 Respiratory Rate 27 H 14 14 Blood Pressure 154/95 H 140/64 125/57 L Pulse Oximetry 100 94 L 98 03/10/18 21:08 03/10/18 22:00 03/10/18 23:00 Temperature Pulse Rate 72 71 68 Respiratory Rate 15 12 15 Blood Pressure 124/57 L 127/62 Pulse Oximetry 98 95 100 03/10/18 23:41 03/11/18 00:00 03/11/18 01:00 Temperature 99.1 F Pulse Rate 68 67 Respiratory Rate 15 14 16 Blood Pressure 122/60 125/58 L Pulse Oximetry 100 100 100 03/11/18 02:00 03/11/18 03:00 03/11/18 04:00 Temperature 99.2 F Pulse Rate 67 67 76 Respiratory Rate 17 13 18 Blood Pressure 126/58 L 124/58 L 126/65 Pulse Oximetry 100 100 100 03/11/18 04:02 03/11/18 05:00 03/11/18 06:00 Temperature Pulse Rate 70 74 Respiratory Rate 16 12 Blood Pressure 118/57 L Pulse Oximetry 100 100 03/11/18 08:00 03/11/18 13:11 Temperature Pulse Rate 74 Respiratory Rate 17 14 Blood Pressure Pulse Oximetry 99 Intake & Output 03/10/18 03/11/18 03/11/18 18:59 06:59 18:59 Intake Total 931 / 931 1282 / 1282 100 / 100 Output Total 2900 / 2900 3150 / 3150 Balance -1968 / -1968 -1868 / -186 100 / 100 Weight 99.3 kg Intake: IV 354 / 354 550 / 550 100 / 100 Versed Inj 50 mg In 50 ml @ 2 54 / 54 MG/HR 2 mls/hr IV.CONT TITRATE PRN Rx#:[id number] Diprivan 1000 mg/100 ml Inj 1, 100 / 100 300 / 300 100 / 100 000 mg In 100 ml @ 5 MCG/KG/MIN 2.177 mls/hr IV.CONT TITRATE PRN Rx#:[id number] KCl 40 mEq Premix Inj 40 meq In 100 / 100 100 ml @ 25 mls/hr IV.SIG UNSCH PRN Rx#:[id number] Rocephin Inj 1,000 MG In NS Inj 100 / 100 100 ML @ 200 mls/hr IV.SIG Q24H NAVID Rx#:[id number] fentaNYL 10 mcg/mL Premix Drip 100 / 100 150 / 150 2,500 mcg In 250 ml @ 50 MCG/HR 5 mls/hr IV.SIG TITRATE PRN Rx #:[id number] Tube Feeding 577 / 577 332 / 332 Water Bolus Amount 400 / 400 Output: Urine Amount (Catheter) 2900 / 2900 3150 / 3150 Indwelling Urethral Catheter 2900 / 2900 3150 / 3150 Other: Date of Last Bowel Movement 03/05/18 03/11/18 - Constitutional moderate distress, obese, chronically ill appearing (Generalized edema multiple tattoos), cooperative (With decreased sedation) - Routine HEENT Exam Head: Present: normocephalic ENT: Present: mucous membranes moist - Routine Neck Exam Present: supple (ET tube) - Routine Respiratory Exam Present: patient mechanically ventilated, distant breath sounds - Routine Cardiovascular Exam Present: S1, S2, tachycardia - Routine Abdominal Exam Present: distended (Round, taut, mild to moderate distention, hepatitis C untreated and poly-substance abuse, cirrhosis) - Routine Extremities Exam Present: edema (Mild improvement, trace to 1+) - Routine Skin Exam Present: pallor - Routine Neurological Exam Present: alert - Urinary Catheter Management Indwelling Urethral Catheter Cath placed during this visit: yes Reason for continuing: Acute urinary retention Insertion date: 03/08/18 Insertion time: 10:30 Condom Cath placed during this visit: no Reason for continuing: Not indwelling catheter <Ema Higuera - Last Filed: 03/11/18 13:24> Vital signs: Vital Signs 03/10/18 23:00 03/10/18 23:41 03/11/18 00:00 Temperature 99.1 F Pulse Rate 68 68 Respiratory Rate 15 15 14 Blood Pressure 127/62 122/60 Pulse Oximetry 100 100 100 03/11/18 01:00 03/11/18 02:00 03/11/18 03:00 Temperature Pulse Rate 67 67 67 Respiratory Rate 16 17 13 Blood Pressure 125/58 L 126/58 L 124/58 L Pulse Oximetry 100 100 100 03/11/18 04:00 03/11/18 04:02 03/11/18 05:00 Temperature 99.2 F Pulse Rate 76 70 Respiratory Rate 18 16 12 Blood Pressure 126/65 118/57 L Pulse Oximetry 100 100 100 03/11/18 06:00 03/11/18 08:00 03/11/18 10:00 Temperature 100.1 F H Pulse Rate 74 73 74 Respiratory Rate 15 Blood Pressure 135/67 Pulse Oximetry 100 03/11/18 12:00 03/11/18 13:11 03/11/18 14:00 Temperature 99.6 F Pulse Rate 74 74 79 Respiratory Rate 21 14 Blood Pressure 148/83 H Pulse Oximetry 03/11/18 16:00 03/11/18 18:00 Temperature 100 F H Pulse Rate 79 79 Respiratory Rate 30 H Blood Pressure 139/69 Pulse Oximetry 91 L Intake & Output 03/11/18 03/11/18 03/12/18 06:59 18:59 06:59 Intake Total 1282 / 1282 650 / 650 Output Total 3150 / 3150 2400 / 2400 Balance -1868 / -1868 -1750 / -1750 Weight 99.3 kg Intake: IV 550 / 550 100 / 100 Diprivan 1000 mg/100 ml Inj 1, 300 / 300 100 / 100 000 mg In 100 ml @ 5 MCG/KG/MIN 2.177 mls/hr IV.CONT TITRATE PRN Rx#:[id number] Rocephin Inj 1,000 MG In NS Inj 100 / 100 100 ML @ 200 mls/hr IV.SIG Q24H NAVID Rx#:[id number] fentaNYL 10 mcg/mL Premix Drip 150 / 150 2,500 mcg In 250 ml @ 50 MCG/HR 5 mls/hr IV.SIG TITRATE PRN Rx #:[id number] Tube Feeding 332 / 332 Tube Irrigant 150 / 150 Water Bolus Amount 400 / 400 400 / 400 Output: Urine Amount (Catheter) 3150 / 3150 2400 / 2400 Indwelling Urethral Catheter 3150 / 3150 2400 / 2400 Other: Date of Last Bowel Movement 03/11/18 03/11/18 # Bowel Movements 3 - Urinary Catheter Management Indwelling Urethral Catheter Cath placed during this visit: no Condom Cath placed during this visit: no <Kirk Alexander E - Last Filed: 03/11/18 22:30> Results - Labs CBC & Chem 7: 03/11/18 11:02 03/11/18 11:02 Laboratory Results - last 24 hr 03/08/18 03/10/18 03/10/18 14:08 17:20 20:09 WBC RBC Hgb Hct MCV MCH MCHC RDW Plt Count MPV PT INR Sodium Potassium 3.4 L Chloride Carbon Dioxide Anion Gap BUN Creatinine Estimated GFR POC Glucose 102 Random Glucose Calcium Phosphorus Magnesium Total Bilirubin AST ALT Alkaline Phosphatase Ammonia Total Protein Albumin MTS Gel Crossmatch See Detail 03/11/18 03/11/18 03/11/18 01:06 05:22 05:27 WBC RBC Hgb Hct MCV MCH MCHC RDW Plt Count MPV PT INR Sodium Potassium Chloride Carbon Dioxide Anion Gap BUN Creatinine Estimated GFR POC Glucose 100 75 Random Glucose Calcium Phosphorus Magnesium Total Bilirubin AST ALT Alkaline Phosphatase Ammonia 63 H Total Protein Albumin MTS Gel Crossmatch 03/11/18 03/11/18 03/11/18 11:02 11:02 11:02 WBC 13.9 H RBC 4.57 Hgb 13.5 Hct 41.5 MCV 90.8 MCH 29.5 MCHC 32.5 RDW 16.6 Plt Count 124 L D MPV 8.5 PT 12.7 H INR 1.3 Sodium 144 Potassium 3.8 Chloride 111 H Carbon Dioxide 23.9 Anion Gap 9 BUN 11 Creatinine 0.63 Estimated GFR Greater than 89 POC Glucose Random Glucose 87 Calcium 7.9 L D Phosphorus 3.6 Magnesium 2.0 Total Bilirubin 2.3 H AST 54 H ALT 54 Alkaline Phosphatase 117 Ammonia Total Protein 6.3 L D Albumin 2.2 L MTS Gel Crossmatch - Imaging Impressions Chest X-Ray 03/11/18 05:00 CONCLUSION: 1. Nasogastric tube and endotracheal tube in place. 2. Mild hazy diffuse left lung opacity and mild patchy right lung base opacity. <Ema Higuera - Last Filed: 03/11/18 13:24> - Labs CBC & Chem 7: 03/11/18 11:02 03/11/18 11:02 Laboratory Results - last 24 hr 03/08/18 03/11/18 03/11/18 14:08 01:06 05:22 WBC RBC Hgb Hct MCV MCH MCHC RDW Plt Count MPV PT INR Sodium Potassium Chloride Carbon Dioxide Anion Gap BUN Creatinine Estimated GFR POC Glucose 100 75 Random Glucose Calcium Phosphorus Magnesium Total Bilirubin AST ALT Alkaline Phosphatase Ammonia Total Protein Albumin MTS Gel Crossmatch See Detail 03/11/18 03/11/18 03/11/18 05:27 11:02 11:02 WBC 13.9 H RBC 4.57 Hgb 13.5 Hct 41.5 MCV 90.8 MCH 29.5 MCHC 32.5 RDW 16.6 Plt Count 124 L D MPV 8.5 PT 12.7 H INR 1.3 Sodium Potassium Chloride Carbon Dioxide Anion Gap BUN Creatinine Estimated GFR POC Glucose Random Glucose Calcium Phosphorus Magnesium Total Bilirubin AST ALT Alkaline Phosphatase Ammonia 63 H Total Protein Albumin MTS Gel Crossmatch 03/11/18 03/11/18 11:02 17:19 WBC RBC Hgb Hct MCV MCH MCHC RDW Plt Count MPV PT INR Sodium 144 Potassium 3.8 Chloride 111 H Carbon Dioxide 23.9 Anion Gap 9 BUN 11 Creatinine 0.63 Estimated GFR Greater than 89 POC Glucose 84 Random Glucose 87 Calcium 7.9 L D Phosphorus 3.6 Magnesium 2.0 Total Bilirubin 2.3 H AST 54 H ALT 54 Alkaline Phosphatase 117 Ammonia Total Protein 6.3 L D Albumin 2.2 L MTS Gel Crossmatch - Imaging Impressions Abdomen X-Ray 03/11/18 00:00 CONCLUSION: Evidence for previous TIPS procedure Mild colonic ileus Probable ascites. Chest X-Ray 03/11/18 05:00 CONCLUSION: 1. Nasogastric tube and endotracheal tube in place. 2. Mild hazy diffuse left lung opacity and mild patchy right lung base opacity. <Kirk Alexander - Last Filed: 03/11/18 22:30> Assessment and Plan - Plan Assessment Upper GI bleeding secondary to esophageal varices S/P EGD (03/02)> large amount of blood in stomach. Fresh blood in the esophagus. Arterial lookingcould not be washed. Ulcers from previous banding site seenpossible source of bleeding, injected with epinephrine 6 mLBlakemore tube placed IR was consulted for TIPS, however this was cancelled because of labs indicative of severe coagulopathy Pt evaluated by hematology, recommending transfusion of platelets to maintain plts around 50,000. Noted that the problem is likely related to hepatic dysfunction. Fantasma deflated on 02/02 - Cirrhosis secondary to hepatitis C and EtOH abuse with complications of portal hypertension, coagulopathy, and recurrent GI bleed Hepatitis C, genotype 1 a, quant > 2 million - Ascites S/P paracentesis 03/05 --> 3.5 L of ascitic fluid drained by [facility] bedside. Fluid culture negative at 48 hours - Hyperammonemia- on Xifaxan and Lactulose 03/09/2018, patient does arouse to abdominal palpation. Patient is status post EGD and status post TIPS procedure. Mother is hopeful for liver transplant in the future, fair to poor prognosis. Peritoneal culture reviewed. Current hemoglobin 11.9 WBC count 9.2 Fantasma tube removed after EGD esophageal varices grade 2 no banding done status post TIPS cold and appliance per IR, portal gastropathy, old blood in stomach, hiatal hernia. AFP level to rule out liver mass. Patient is currently managed on Rocephin. 03/10/2018, continues with generalized edema will increase Aldactone to 150 daily, noted increased IV Lasix dose today with some increase in diuresis. Will monitor ammonia level since patient is status post TIPS. Okay for low- dose beta-raciel but not going to be necessary for long-term use since patient is status post TIPS. Continue tube feeds until goal rate 03/11/2018 slow ventilator weaning continues 1045 this a.m. patient noted nausea and vomiting NG tube was initially clamped but then was connected to low intermittent suction with clear yellow bilious fluid noted total over the past 2 hours 275 cc. No obvious blood noted labs reviewed current ammonia level 63. Started dark stools 2-3 times this a.m. but patient has not had bowel movement documented since 03/04 and patient has minimal bowel sounds. Current hemoglobin 13.5. Generalized edema appears to be improving with increase IV Lasix doses per window maker. Patient is status post TIPS procedure so close monitoring of patient's encephalopathy and ammonia level is critical. Appreciate any palliative care input currently patient remains full code, Rule out ileus Plan N.p.o. NG tube connected to low intermittent suction for now Continue Aldactone 150 mg daily and Lasix IV per window maker Monitor labs with special attention to ammonia level will recheck again on 03/12 Hemoccult stools today to check for melena KUB today rule out ileus EGD recheck in 6 weeks Supportive care Patient was seen per myself and Dr. Alexander, note was written on his behalf <Ema Higuera - Last Filed: 03/11/18 13:24> - Plan Patient seen and examined Agree with above Continue with current supportive care Monitor labs <Kirk Alexander - Last Filed: 03/11/18 22:30>
[2018-03-11] MEDS: Dextrose 10% in Water Inj 1,000 ML IV.SIG SCH ×2 (14:21→18:08)
--- NOTE | 2018-03-11 14:32 | XR ---
EXAM DATE: 03/11/2018 2:12 PM EST AGE/SEX: 33 years / Male INDICATIONS: Ileus. CLINICAL DATA: This is the patient's initial encounter. Patient reports that signs and symptoms have been present for 1 week and indicates a pain score of Nonresponsive. MEDICAL/SURGICAL HISTORY: Gastrointestinal bleed. Non-responsive. COMPARISON: [facility] [place], CTA ABDOMEN & PELVIS W CONTRAST W 3D, 03/06/2018. . FINDINGS: Nasogastric tube across the GE junction. Multiple radiographic demonstration corals are noted. There is a previous TIPS procedure is evident. Minimal gas distention of transverse colon Centralization of bowel loops suggesting ascites. CONCLUSION: Evidence for previous TIPS procedure Mild colonic ileus Probable ascites. Electronically signed by: Julian Fritz MD 03/11/2018 2:31 PM EST
[2018-03-11] MEDS: Pantoprazole Inj 40 MG Vial IV.PUSH SCH (15:12)
[2018-03-11] MEDS: Morphine Sulfate Inj 2 MG/ML Vial IV.PUSH PRN ×3 (15:15→23:13)
--- NOTE | 2018-03-11 16:46 | P.DIET ---
Nutritional Evaluation Type of nutrition evaluation: initial Nutrition consult regarding: Tube Feeding Screening comments: 03/05 NPO x3 days Objective - Diagnosis GI bleed - Objective % IBW: 138 (IBW = 172lb) Body Weight Used for Calculations: IBW Energy Needs - Lower Range (kCal/kg): 22 Energy Needs - Upper Range (kCal/kg): 28 Lower Limit kCal/kg (kCals): 1,720 Upper Limit kCal/kg (kCals): 2,190 Lower Limit Protein Factor (Grams per Kg): 1.0 Upper Limit Protein Factor (Grams per Kg): 1.5 Lower Protein Needs (Protein): 78 Upper Protein Needs (Protein): 117 Fluid Factor (ml/kg): 25 Estimated Fluid Needs (ml): 1,955 Dietitian Reviewed in Medical Record: Current diet, Curent medications, Intake & Output, Labs, Medical history, Tube feeding Diet Order: NPO Speech Therapy Recommendations: No Objective Comments: PMH: AFIB hep C, HTN, liver cirrhosis, substance abuse Labs: Cr 0.56, POC glucose 1112, Ca+6.7 Assessment Assessment: Pt is awake today and extubated. Pts friends present during RD visit. Pts TF was off and pts NGT was pulled out. Good UOP, +LBM 03/11. Will monitor NPO status and diet advancement recs. Labs reviewed, dietitian following. Additional recs to follow r/t clinical course. Recommendations: 1. Will monitor NPO status and diet advancement recs 2. Dietitian following 3. Additional recs to follow r/t clinical course Dietitian to Monitor: Lab values, Intake & Output, Weight change, Diet advancement, Medical course
[2018-03-11] MEDS ORDERED: LORazepam 0.5 MG Tablet PO ONE (18:00)
[2018-03-12] MEDS: Oral Hygiene Kit OROPHARYNG SCH ×4 (04:00→23:54)
[2018-03-12 04:40] LABS: Hematocrit 36.6 % (39.0-51.0); Hemoglobin 12.2 gm/dL (13.0-17.0); Mean Corpuscular HGB Conc 33.5 % (32.0-36.0); Mean Corpuscular Hemoglobin 29.6 pg (27.0-34.0); Mean Corpuscular Volume 88.4 fL (80.0-100.0); Mean Platelet Volume 8.2 fL (7.0-11.0); Platelet Count 134 th/mm3 (150-450); Red Blood Count 4.14 mil/mm3 (4.50-5.90); Red Cell Distribution Width 16.4 % (11.6-17.2); White Blood Count 11.1 th/mm3 (4.0-11.0)
[2018-03-12 04:57] LABS: INR 1.3 Ratio; Prothrombin Time 13.4 sec (9.8-11.6)
[2018-03-12 05:12] LABS: Anion Gap 8 meq/L (5-15); Aspartate Aminotransferase 46 U/L (15-37); Blood Urea Nitrogen 14 mg/dL (7-18); Calcium 7.5 mg/dL (8.5-10.1); Carbon Dioxide 25.2 meq/L (21.0-32.0); Chloride 109 meq/L (98-107); Glomerular Filtration Rate Greater Than 89 mL/min (>89); Glucose,Random 81 mg/dL (74-106); Magnesium 1.8 mg/dL (1.5-2.5); Potassium 3.5 meq/L (3.5-5.1); Sodium 142 meq/L (136-145)
[2018-03-12 05:16] LABS: Alanine Aminotransferase 46 U/L (12-78); Alkaline Phosphatase 100 U/L (45-117); Phosphorus 3.3 mg/dL (2.5-4.9); Total Protein 5.7 g/dL (6.4-8.2)
[2018-03-12] MEDS: AMINOCAPROIC ACID 250 MG/ML NG/OG SCH (05:51)
[2018-03-12] MEDS: Propranolol 10 MG Tablet PO SCH ×3 (05:51→21:25)
[2018-03-12] MEDS: Insulin NovoLIN Regular Correctional Sugar Inj SQ SCH ×4 (05:51→23:54)
--- NOTE | 2018-03-12 06:14 | XR ---
EXAM DATE: 03/12/2018 5:06 AM EST AGE/SEX: 33 years / Male INDICATIONS: Short of breath. CLINICAL DATA: This is the patient's subsequent encounter. Patient reports that signs and symptoms h ave been present for 4 - 6 days and indicates a pain score of 0/10. MEDICAL/SURGICAL HISTORY: . Cirrhosis. Hepatitis C. Hypertension. A-Fib. None. COMPARISON: [facility], CHEST 1V SINGLE AP, 03/11/2018. . FINDINGS: A single AP portable semierect view of the chest was obtained. The tips of the lung apices were cut o ff the exam. The study remains mid inspiratory. The previously noted endotracheal tube is no longer v isualized. A nasogastric tube remains in place. The heart size is enlarged. There is mild hazy opacit y again noted in both lungs without significant change. There is no distinct effusion. There are over lying electrocardiogram leads. Multiple coils are again noted in the upper mid abdomen. CONCLUSION: 1. Suboptimal study with the lung apices cut off the exam. 2. The endotracheal tube is no longer visualized and the patient may have been extubated. This needs to be correlated. 3. Mid expiratory study with cardiomegaly and hazy opacity in the lungs without significant change. Electronically signed by: Bridger Watson MD 03/12/2018 6:13 AM EST
[2018-03-12] MEDS: Potassium Chlor 20 mEq Premix 20 MEQ/100 ML PIGGYBACK IV.SIG PRN (09:00)
[2018-03-12] MEDS: Morphine Sulfate Inj 2 MG/ML Vial IV.PUSH PRN ×4 (09:07→21:27)
[2018-03-12] MEDS: Chlorhexidine 0.12% Oral Kit 15 ML UDC OROPHARYNG SCH ×2 (09:08→19:46)
[2018-03-12] MEDS: Artificial Tears Opth Drops 15 ML Bottle EACH EYE SCH (09:09)
[2018-03-12] MEDS: Senna/Docusate Sodium 8.6/50 MG Tablet PO SCH ×2 (09:10→21:26)
--- NOTE | 2018-03-12 11:12 | P.PNCC ---
Subjective Subjective Remarks/Hospital Course: This is a 33-year-old male. Date of admission 03/01/2018. Past medical includes hepatitis C, known liver cirrhosis, esophageal varices patient was actually admitted 02/14 with upper GI bleed. Patient had 3 columns of 2-3 grade esophageal varices that evaluated Sean with banding.. Patient presents to [facility] 03/01 witha chief complaint of hematemesis. EMS reports that his initial blood pressure on their arrival was in the 70s-80s with a heart rate in the 150s. They state that he has put out copious amounts of hematemesis. Patient states that this began approximately 30 minutes prior to arrival. He does admit to fever and chills as well with abdominal pain. No headache no recent trauma. No chest pain or shortness of breath. Patient was emergently intubated and central line was placed in the femoral region. Hemoglobin is noted to be 5.2. Emergently transfused 3 units PRBCs. GI was consulted to try to perform an upper endoscopy revealed copious amounts of blood in the esophagus. Epinephrine injection was attempted. Fantasma tube was placed. IR was called. Repeat laboratories revealed significant coagulopathy with elevated INR/PTT and low fibrinogen. Unable to do intervention. State they do not tips at this facility. Patient needs to be stabilized prior to any transfer. Remains intubated on low-dose norepinephrine drip. Currently receiving K Centra, FFP and cryoprecipitate. 03/02: remains in active hemorrhagic shock. bleeding continues to be uncontrolled. massive transfusion is ongoing. Totals currently: 22 prbc 16 FFP 4 plt 4 Cryo off levophed, but still actively bleeding, suctioning bright red blood from mouth and having bright red bloody bowel movements. Fantasma remains in place. lactate 11. remains acidotic. 03/03: remains intubated. bleeding has appeared to slow, but continues at a slow ooze. hgb now stable. platelets continue to drop in a combination of consumption and splenic sequestration. off vasopressors. likely plan for repeat EGD today. lactate is clearing, albeit slowly. totals: 29 prbc 16 FFP 9 plt 4 cryo 1mg factor 7 2 doses of KCentra 2 doses of Vit K 03/04: Remains sedated, orally intubated on mechanical ventilation. Fantasma tube remains in place. 03/05: Remains sedated, orally intubated on mechanical ventilation. Fantasma tube remains in place though it has been deflated. Hemoglobin remained stable at 12. 3.5 L of ascitic fluid drained with ultrasound guidance yesterday, fluid appears transudative. Following paracentesis FiO2 was decreased from 100- 50% and now is currently at 70%. Clinically significant volume overload persists with generalized anasarca scrotal edema. Initiating Lasix to mobilize fluids. Has been maintaining blood pressure for the last 48 hours. 03/06: remains intubated and sedated. hgb stable. GI wants to wait additional 24h before repeat EGD. remains volume overloaded. 03/07: Remains sedated, orally intubated on mechanical ventilation. Awaiting EGD with possible banding today by GI. Being diuresed. 03/08: Remains sedated, orally intubated on mechanical ventilation. Underwent TIPS procedure on 03/07 by interventional radiology. Awaiting EGD and colonoscopy today with possible removal of Fantasma tube and insertion of Dobbhoff. 03/09: Sedated, arousable, orally intubated on mechanical ventilation. Fantasma tube removed and replaced with Dobbhoff yesterday during EGD by GI 03/10: hgb stable. diuresing. more reinserted due to retention with severe scrotal edema. somnolent and decreasing sedation. on tube feeds. 03/11: Patient remains hemodynamically stable. Good urine output more than 6 L with forced diuresis. Awake on sedation will start weaning trial for possible extubation. Hemoglobin pending at this time Subjective: 03/12: T-max 100. Currently afebrile. Hemoglobin remained stable. Attempted swallow evaluation per GI. Discontinuing aminocaproic as per discussion with hematology. Mother with questions about liver transplant. Different GI at this time. Objective Vital Signs / I&O: Vital Signs 03/11/18 12:00 03/11/18 13:11 03/11/18 14:00 Temperature 99.6 F Pulse Rate 74 74 79 Respiratory Rate 21 14 Blood Pressure 148/83 H Pulse Oximetry 03/11/18 16:00 03/11/18 17:00 03/11/18 18:00 Temperature 100 F H Pulse Rate 79 82 79 Respiratory Rate 30 H 34 H 34 H Blood Pressure 139/69 140/69 133/62 Pulse Oximetry 91 L 03/11/18 19:00 03/11/18 20:00 03/11/18 21:00 Temperature 99.4 F Pulse Rate 77 74 73 Respiratory Rate 37 H 18 32 H Blood Pressure 128/58 L 131/69 129/59 L Pulse Oximetry 94 L 93 L 03/11/18 22:00 03/11/18 23:00 03/12/18 00:00 Temperature 98.9 F Pulse Rate 75 73 73 Respiratory Rate 36 H 21 26 H Blood Pressure 130/74 129/62 128/58 L Pulse Oximetry 94 L 97 98 03/12/18 01:00 03/12/18 02:00 03/12/18 03:00 Temperature Pulse Rate 69 70 69 Respiratory Rate 32 H 10 L 32 H Blood Pressure 126/59 L 122/58 L 123/61 Pulse Oximetry 97 97 98 03/12/18 04:00 03/12/18 05:00 03/12/18 06:00 Temperature 99.1 F Pulse Rate 69 63 74 Respiratory Rate 22 20 27 H Blood Pressure 128/66 126/62 119/71 Pulse Oximetry 98 98 93 L Intake & Output 03/11/18 03/12/18 03/12/18 18:59 06:59 18:59 Intake Total 650 / 650 300 / 300 Output Total 2400 / 2400 4750 / 4750 Balance -1750 / -1750 -4450 / -4450 Weight 88.7 kg Intake: IV 100 / 100 Diprivan 1000 mg/100 ml Inj 1, 100 / 100 000 mg In 100 ml @ 5 MCG/KG/MIN 2.177 mls/hr IV.CONT TITRATE PRN Rx#:[id number] Tube Irrigant 150 / 150 Water Bolus Amount 400 / 400 300 / 300 Output: Urine Amount (Catheter) 2400 / 2400 4750 / 4750 Indwelling Urethral Catheter 2400 / 2400 4750 / 4750 Other: Date of Last Bowel Movement 03/11/18 03/12/18 03/11/18 # Bowel Movements 3 # Emeses 1 Result Diagrams: 03/12/18 04:29 03/12/18 04:29 Other Results: Microbiology 03/11/18 19:20 Stool Stool Occult Blood (HOLLI) - Final Hemoccult positive 03/04/18 16:19 Fluid - Peritoneal fluid Gram Stain - Final 03/04/18 16:19 Fluid - Peritoneal fluid Body Fluid Culture - Final No growth in 72 hours (aerobically and anaerobically ) 03/01/18 21:45 Blood - Peripheral Aerobic Blood Culture - Final No growth in 5 days 03/01/18 21:45 Blood - Peripheral Anaerobic Blood Culture - Final No growth in 5 days 03/01/18 21:40 Blood - Peripheral Aerobic Blood Culture - Final No growth in 5 days 03/01/18 21:40 Blood - Peripheral Anaerobic Blood Culture - Final No growth in 5 days 03/02/18 15:00 Sputum - Endotracheal Gram Stain - Final 03/02/18 15:00 Sputum - Endotracheal Sputum Culture - Final Rare growth normal respiratory tyrese 03/02/18 15:00 Nasal Aspirate Influenza Types A,B Antigen - Final Negative for FLU A and B antigen Infection due to influenza A or B cannot be ruled out since the antigen present in the sample may be below the detection limit of the test. Imaging: Chest X-Ray 03/01/18 00:00 CONCLUSION: Endotracheal tube tip is in the right mainstem bronchus. Retraction by 3 cm would be optimal Chest X-Ray 03/01/18 21:38 CONCLUSION: Minimal basilar atelectasis. No active disease. Chest X-Ray 03/02/18 00:00 CONCLUSION: Endotracheal tube and central line positioning is satisfactory. The Fantasma tube may be too deep. Worsening aeration. Chest X-Ray 03/03/18 00:00 CONCLUSION: Increasing bilateral airspace disease. Hypoaerated lungs Chest X-Ray 03/05/18 07:28 CONCLUSION: Worsening parenchymal process bilaterally probably worsening pulmonary edema. Pneumonia is difficult to exclude. Abdomen/Pelvis CTA 03/06/18 00:00 CONCLUSION: 1. The abdominal aorta, proximal celiac and superior mesenteric arteries are within normal limits. There is no evidence of active extravasation of contrast. 2. Cirrhotic liver again noted as well as splenomegaly. 3. New consolidation in both lung bases with small pleural effusions. There is moderate to large amount of ascitic fluid now noted throughout the abdomen as well as anasarca. TIPS 03/07/18 00:00 CONCLUSION: 1. Technically successful TIPS placement, as above. 2. Technically successful coil embolization of multiple short gastric and coronary varices. 3. PLAN: Baseline ultrasound examination in 2 weeks with surveillance ultrasound at 3 months, 6 months and one year. Chest X-Ray 03/08/18 08:52 CONCLUSION: 1. Stable tubes and lines, as above. 2. Significantly improved pulmonary edema pattern. Abdomen X-Ray 03/11/18 00:00 CONCLUSION: Evidence for previous TIPS procedure Mild colonic ileus Probable ascites. Chest X-Ray 03/11/18 05:00 CONCLUSION: 1. Nasogastric tube and endotracheal tube in place. 2. Mild hazy diffuse left lung opacity and mild patchy right lung base opacity. Chest X-Ray 03/12/18 06:00 CONCLUSION: 1. Suboptimal study with the lung apices cut off the exam. 2. The endotracheal tube is no longer visualized and the patient may have been extubated. This needs to be correlated. 3. Mid expiratory study with cardiomegaly and hazy opacity in the lungs without significant change. Objective Remarks: GENERAL: Young male, lying in bed, currently on nasal cannula no acute distress HEENT: Normocephalic. Atraumatic. Pupils equal, round, reactive, conjugate. NECK: Trachea is midline. There is no JVD. CHEST: Few crackles appreciated bases. Diminished. No wheezing. CARDIOVASCULAR: normal rate, regular rhythm. Sinus. ABDOMEN: Soft, nontender, less distended today. No guarding. No wheezing. MUSCULOSKELETAL: Pulses 2+. 1+ peripheral edema. NEUROLOGICAL: Cranial nerves II through XII grossly intact. Strength is equal symmetric. Normal sensation. Assessment and Plan - Assessment and Plan Plan: Neuro/Psych: Acute toxic metabolic encephalopathy- persistent Hepatic encephalopathy See GI for workup for hepatic encephalopathy Morphine sulfate 2 mg IV every 4 hours as needed pain CV: Acute hemorrhagic shock-resolved Lactic acidosis- resolved Off pressors KVO IV fluids Resp: Follow-up on chest x-ray in a.m. 03/13 Incentives spirometry while awake Nasal cannula to maintain saturations greater than equal to 92% GI: Upper GI bleed secondary to esophageal varices/acquired coagulopathy Liver cirrhosis Hepatitis C Elevated ammonia Status post upper endoscopy by Dr. Moeller on prior admission. Injected epinephrine. s/p repeat EGD 03/02: with variceal banding. Fantasma tube replaced with Dobbhoff during EGD on 03/08 s/p TIPS for recurrent variceal bleed with coiling of short gastric and cardiac varices on 03/07.r lactulose/rifaximin trend ammonia levels on Spironolactone 15mg po daily on iv furosemide 40 mg IV twice daily 5mg propranolol TID-- too hypotensive and bradycardic to increase higher. Large ascites noted, status post US guided paracentesis 03/04 with significant improvement in respiratory status after drainage of 3.5 L of ascitic fluid which appears transudative-cultures sent. GI okay to attempt swallow evaluation. Place Dobbhoff tube if fails : Straight catheterization as needed Endo: Sliding scale insulin Accu-Cheks to maintain euglycemia Renal: Acute kidney injury Creatinine currently within normal limit Accurate I's and O's Monitor urine output Heme: Acute blood loss anemia Acute coagulopathy - resolved leukocytosis Thrombocytopenia DIC- resolved totals: 33 prbc 16 FFP 9 plt 4 cryo 1mg factor 7 2 doses of KCentra 2 doses of Vit K keep plt > 50k or 100k if active massive bleeding. serial CBC, coag goal hgb > 8 while active hemorrhage, INR < 1.4, fibrinogen > 150, plt > 100k. Discussed with hematology. Discontinued aminocaproic acid ID: ceftriaxone 1 g every 24 hours for upper GI bleed, SBP prophylaxis MSK: PT evaluate and treat FEN: Replace electrolytes as clinically indicated Access -Utilize peripheral IV. Discontinued right IJ CVL. Prophylaxis -GI -pantoprazole drip -DVT -SCD/pharmacological prophylaxis contraindicated with acute bleed D/W ARCHIVIST. Discussed with patient's mother at bedside, care plan discussed and all questions answered. Level 2
[2018-03-12] MEDS: Potassium Chlor 10 mEq Premix 10 MEQ/100 ML PIGGYBACK IV.SIG SCH ×3 (11:46→19:43)
[2018-03-12] MEDS: Mag Sulf 1 gm/100 ml Premix 100 ML IV.SIG SCH ×2 (11:46→12:51)
--- NOTE | 2018-03-12 12:12 | P.PNGI ---
Subjective Interval history: Extubated currently on room air No acute abdominal pain Nausea vomiting over the past 24 hours NG tube accidentally out Awake alert not in head and answering simple questions Physical Exam Vital signs: Vital Signs 03/11/18 13:11 03/11/18 14:00 03/11/18 16:00 Temperature 100 F H Pulse Rate 74 79 79 Respiratory Rate 14 30 H Blood Pressure 139/69 Pulse Oximetry 91 L 03/11/18 17:00 03/11/18 18:00 03/11/18 19:00 Temperature Pulse Rate 82 79 77 Respiratory Rate 34 H 34 H 37 H Blood Pressure 140/69 133/62 128/58 L Pulse Oximetry 03/11/18 20:00 03/11/18 21:00 03/11/18 22:00 Temperature 99.4 F Pulse Rate 74 73 75 Respiratory Rate 18 32 H 36 H Blood Pressure 131/69 129/59 L 130/74 Pulse Oximetry 94 L 93 L 94 L 03/11/18 23:00 03/12/18 00:00 03/12/18 01:00 Temperature 98.9 F Pulse Rate 73 73 69 Respiratory Rate 21 26 H 32 H Blood Pressure 129/62 128/58 L 126/59 L Pulse Oximetry 97 98 97 03/12/18 02:00 03/12/18 03:00 03/12/18 04:00 Temperature 99.1 F Pulse Rate 70 69 69 Respiratory Rate 10 L 32 H 22 Blood Pressure 122/58 L 123/61 128/66 Pulse Oximetry 97 98 98 03/12/18 05:00 03/12/18 06:00 03/12/18 11:57 Temperature Pulse Rate 63 74 Respiratory Rate 20 27 H Blood Pressure 126/62 119/71 Pulse Oximetry 98 93 L 94 L Intake & Output 03/11/18 03/12/18 03/12/18 18:59 06:59 18:59 Intake Total 650 / 650 300 / 300 Output Total 2400 / 2400 4750 / 4750 Balance -1750 / -1750 -4450 / -4450 Weight 88.7 kg Intake: IV 100 / 100 Diprivan 1000 mg/100 ml Inj 1, 100 / 100 000 mg In 100 ml @ 5 MCG/KG/MIN 2.177 mls/hr IV.CONT TITRATE PRN Rx#:[id number] Tube Irrigant 150 / 150 Water Bolus Amount 400 / 400 300 / 300 Output: Urine Amount (Catheter) 2400 / 2400 4750 / 4750 Indwelling Urethral Catheter 2400 / 2400 4750 / 4750 Other: Date of Last Bowel Movement 03/11/18 03/12/18 03/11/18 # Bowel Movements 3 # Emeses 1 - Constitutional mild distress, disheveled, cooperative - Routine HEENT Exam Head: Present: normocephalic ENT: Present: mucous membranes moist - Routine Neck Exam Present: supple - Routine Respiratory Exam Present: distant breath sounds (Low volumes but no obvious wheezing, rhonchi clears with cough) - Routine Cardiovascular Exam Present: S1, S2 - Routine Abdominal Exam Present: distended (Round, very minimal bowel sounds, dark loose stools) - Routine Skin Exam Present: pallor - Routine Neurological Exam Present: alert (Awake nodding and answering simple questions) - Urinary Catheter Management Indwelling Urethral Catheter Cath placed during this visit: yes Reason for continuing: Acute urinary retention Insertion date: 03/08/18 Insertion time: 10:30 Condom Cath placed during this visit: no Reason for continuing: Not indwelling catheter Results - Labs CBC & Chem 7: 03/12/18 04:29 03/12/18 04:29 Laboratory Results - last 24 hr 03/11/18 03/11/18 03/11/18 11:02 11:02 11:02 WBC 13.9 H RBC 4.57 Hgb 13.5 Hct 41.5 MCV 90.8 MCH 29.5 MCHC 32.5 RDW 16.6 Plt Count 124 L D MPV 8.5 PT 12.7 H INR 1.3 Sodium 144 Potassium 3.8 Chloride 111 H Carbon Dioxide 23.9 Anion Gap 9 BUN 11 Creatinine 0.63 Estimated GFR Greater than 89 POC Glucose Random Glucose 87 Calcium 7.9 L D Phosphorus 3.6 Magnesium 2.0 Total Bilirubin 2.3 H AST 54 H ALT 54 Alkaline Phosphatase 117 Ammonia Total Protein 6.3 L D Albumin 2.2 L 03/11/18 03/11/18 03/12/18 17:19 23:15 04:29 WBC 11.1 H RBC 4.14 L Hgb 12.2 L Hct 36.6 L MCV 88.4 MCH 29.6 MCHC 33.5 RDW 16.4 Plt Count 134 L MPV 8.2 PT INR Sodium Potassium Chloride Carbon Dioxide Anion Gap BUN Creatinine Estimated GFR POC Glucose 84 85 Random Glucose Calcium Phosphorus Magnesium Total Bilirubin AST ALT Alkaline Phosphatase Ammonia Total Protein Albumin 03/12/18 03/12/18 03/12/18 04:29 04:29 04:29 WBC RBC Hgb Hct MCV MCH MCHC RDW Plt Count MPV PT 13.4 H INR 1.3 Sodium 142 Potassium 3.5 Chloride 109 H Carbon Dioxide 25.2 Anion Gap 8 BUN 14 Creatinine 0.66 Estimated GFR Greater than 89 POC Glucose Random Glucose 81 Calcium 7.5 L Phosphorus 3.3 Magnesium 1.8 Total Bilirubin 2.7 H AST 46 H ALT 46 Alkaline Phosphatase 100 Ammonia 28 Total Protein 5.7 L D Albumin 2.0 L Microbiology 03/11/18 19:20 Stool Stool Occult Blood (HOLLI) - Final Hemoccult positive - Imaging Impressions Abdomen X-Ray 03/11/18 00:00 CONCLUSION: Evidence for previous TIPS procedure Mild colonic ileus Probable ascites. Chest X-Ray 03/12/18 06:00 CONCLUSION: 1. Suboptimal study with the lung apices cut off the exam. 2. The endotracheal tube is no longer visualized and the patient may have been extubated. This needs to be correlated. 3. Mid expiratory study with cardiomegaly and hazy opacity in the lungs without significant change. Assessment and Plan - Plan Upper GI bleeding secondary to esophageal varices S/P EGD (03/02)> large amount of blood in stomach. Fresh blood in the esophagus. Arterial lookingcould not be washed. Ulcers from previous banding site seenpossible source of bleeding, injected with epinephrine 6 mLBlakemore tube placed IR was consulted for TIPS, however this was cancelled because of labs indicative of severe coagulopathy Pt evaluated by hematology, recommending transfusion of platelets to maintain plts around 50,000. Noted that the problem is likely related to hepatic dysfunction. Fantasma deflated on 02/02 - Cirrhosis secondary to hepatitis C and EtOH abuse with complications of portal hypertension, coagulopathy, and recurrent GI bleed Hepatitis C, genotype 1 a, quant > 2 million - Ascites S/P paracentesis 03/05 --> 3.5 L of ascitic fluid drained by [facility] bedside. Fluid culture negative at 48 hours - Hyperammonemia- on Xifaxan and Lactulose 03/09/2018, patient does arouse to abdominal palpation. Patient is status post EGD and status post TIPS procedure. Mother is hopeful for liver transplant in the future, fair to poor prognosis. Peritoneal culture reviewed. Current hemoglobin 11.9 WBC count 9.2 Fantasma tube removed after EGD esophageal varices grade 2 no banding done status post TIPS cold and appliance per IR, portal gastropathy, old blood in stomach, hiatal hernia. AFP level to rule out liver mass. Patient is currently managed on Rocephin. 03/10/2018, continues with generalized edema will increase Aldactone to 150 daily, noted increased IV Lasix dose today with some increase in diuresis. Will monitor ammonia level since patient is status post TIPS. Okay for low- dose beta-raciel but not going to be necessary for long-term use since patient is status post TIPS. Continue tube feeds until goal rate 03/11/2018 slow ventilator weaning continues 1045 this a.m. patient noted nausea and vomiting NG tube was initially clamped but then was connected to low intermittent suction with clear yellow bilious fluid noted total over the past 2 hours 275 cc. No obvious blood noted labs reviewed current ammonia level 63. Started dark stools 2-3 times this a.m. but patient has not had bowel movement documented since 03/04 and patient has minimal bowel sounds. Current hemoglobin 13.5. Generalized edema appears to be improving with increase IV Lasix doses per sterile products processor. Patient is status post TIPS procedure so close monitoring of patient's encephalopathy and ammonia level is critical. Appreciate any palliative care input currently patient remains full code, Rule out ileus 03/12/2018, abdomen continues to be round with minimal bowel sounds KUB did show mild colonic ileus, probable ascites. NG tube was accidentally out during a.m. hours. Patient was extubated on 03/11/2018 and is currently on room air. Speech therapy evaluation to check swallow and hopefully patient will be able to take his medicines without NG tube due to his history of varices. Patient is awake nodding his head and answering simple questions appropriately. Noted 3 liquid stools within the past 24 hours. Generalized edema gradual improvement noted, trace to 1+ lower extremity edema. Note patient is status post EGD on 03/02/2018 and will need recheck in 6 weeks. Hemoccult positive, but hemoglobin stable for now , ammonia level 28, patient shows no signs of encephalopathy Patient continues to show gradual improvement. Labs reviewed current hemoglobin 12.2, WBC count 11.1 Plan Diet currently n.p.o. until speech therapy evaluation for swallow and cognition Aldactone 150 daily Lasix dose has been decreased back to 40 IV twice daily Lactulose every 6h, continue for now Xifaxan 550 mg p.o. every 12 hours Supportive care Patient was seen per myself and Dr. Gambino, note was written on his behalf
[2018-03-12] MEDS ORDERED: Bisacodyl 10 MG Supp RECTAL SCH (12:15)
[2018-03-12] MEDS: rifAXIMin 550 MG Tablet PO SCH ×2 (12:57→21:26)
[2018-03-12] MEDS: Pantoprazole Inj 40 MG Vial IV.PUSH SCH (14:28)
--- NOTE | 2018-03-12 17:53 | P.PNWCN ---
Wound Care Nurse Consult Description: Received wound management consult for bilateral wounds on buttock from Doctor Yosi Communicated with: DIEGO VICENTE and Doctor Joon Recommendation: 1.Please cleanse wound to sacrococcygeal area with normal saline only and pat dry. Apply Santyl rené thickness over open wound. If wound is very moist with active drainage, please cover with maxorb II cut to fit wound shape and cover with bordered gauze. If wound is dry without active drainage do not cover with maxorb II, instead cover with Xeroform gauze cut to fit wound shape and cover with bordered gauze. Please apply cavilon skin barrier film spray to periwound before applying bordered gauze in place. Change dressing daily. 2.Turn patient every 2 hours from L side to R side, limiting time spent on back to P.T. and meals. 3. Do not place cotton pads under patient, use ultra sorb pad only. Wound/Pressure Injury - Wound sacrococcygeal area Wound Staging: Unstageable Wound Assessment: Ongoing Wound Type: Pressure Injury Is This a Chronic Wound: No Requested from Provider a Wound Care Consult: Yes Length (cm): 10 Width (cm): 4.6 Depth (cm): 0 (eschar) Wound Bed Appearance: Necrotic, Red Wound Bed Appearance: Wound bed presents with ~60% red non granulation tissue and ~40% black adherent eschar. Surrounding Tissue Appearance: Erythema Surrounding Tissue Temperature: Warm Drainage Description: Serosanguinous Drainage Amount: Moderate Drainage Odor: No Odor Dressing Status: Changed Cleansing Solution: Saline Wound Packing Type: Alginate (maxorb II) Cover Dressing: bordered gauze Wound Margin Description: Wound margins are uneven - Additional Information Patient seen today on [facility] for wound management of bilateral wounds on buttocks.Patient was turned with the maximum assistance of Foster VICENTE and handbook writer toward the L side for wound assessment. Patient is noted laying in regular hill rom bed and feels hot to touch. Patient is noted with 2 staggered ultra sorb pads and one cotton under pad underneath patient.Large wound is noted to sacrococcygeal area extending from sacrum and including the gluteal cleft and bilateral inner buttocks. Wound presents with mixed etiology of moisture, pressure and friction. Periwound is erythematous and denuded, but blanchable. Wound is an unstageable pressure injury, due to the presence of ~40 % black eschar. Wound is also noted with ~60% red non granulation tissue.Wound does present with moderate sero-sanguinous drainage, but no foul odor. Wound measurements and full description are noted above. Wound culture was obtained due to erythema to periwound, moderate drainage and patient temperature. Wound was cleansed with normal saline and patted dry. Applied Maxorb II cut to fit wound shape and then was secured with bordered gauze. Skin barrier film was applied to periwound before adhesive dressing was placed. Patient was then portioned off bottom.
[2018-03-12] MEDS: Collagenase Oint 30 GM Tube TOPICAL SCH (19:44)
[2018-03-12] MEDS: Dextrose 10% in Water Inj 1,000 ML IV.SIG SCH (19:45)
[2018-03-13] MEDS: Morphine Sulfate Inj 2 MG/ML Vial IV.PUSH PRN ×2 (02:28→09:05)
[2018-03-13] MEDS: Oral Hygiene Kit OROPHARYNG SCH ×3 (03:29→17:27)
[2018-03-13 04:27] LABS: Hematocrit 35.9 % (39.0-51.0); Hemoglobin 12.5 gm/dL (13.0-17.0); Mean Corpuscular HGB Conc 34.7 % (32.0-36.0); Mean Corpuscular Volume 86.4 fL (80.0-100.0); Mean Platelet Volume 7.9 fL (7.0-11.0); Platelet Count 152 th/mm3 (150-450); Red Blood Count 4.16 mil/mm3 (4.50-5.90); Red Cell Distribution Width 15.9 % (11.6-17.2); White Blood Count 10.5 th/mm3 (4.0-11.0)
[2018-03-13 04:50] LABS: Alanine Aminotransferase 42 U/L (12-78); Alkaline Phosphatase 93 U/L (45-117); Anion Gap 8 meq/L (5-15); Aspartate Aminotransferase 43 U/L (15-37); Blood Urea Nitrogen 10 mg/dL (7-18); Calcium 7.1 mg/dL (8.5-10.1); Carbon Dioxide 23.4 meq/L (21.0-32.0); Chloride 110 meq/L (98-107); Glomerular Filtration Rate Greater Than 89 mL/min (>89); Glucose,Random 88 mg/dL (74-106); Magnesium 2.1 mg/dL (1.5-2.5); Phosphorus 2.2 mg/dL (2.5-4.9); Potassium 3.2 meq/L (3.5-5.1); Sodium 141 meq/L (136-145); Total Protein 5.7 g/dL (6.4-8.2)
[2018-03-13 05:01] LABS: Activated Partial Thrombo Time 26.8 sec (23.4-31.7); INR 1.4 Ratio; Prothrombin Time 13.9 sec (9.8-11.6)
[2018-03-13] MEDS: Insulin NovoLIN Regular Correctional Sugar Inj SQ SCH ×3 (07:17→17:32)
[2018-03-13] MEDS: Propranolol 10 MG Tablet PO SCH ×2 (07:17→15:11)
[2018-03-13] MEDS: Chlorhexidine 0.12% Oral Kit 15 ML UDC OROPHARYNG SCH ×2 (09:05→21:35)
[2018-03-13] MEDS: Collagenase Oint 30 GM Tube TOPICAL SCH (09:49)
[2018-03-13] MEDS: Senna/Docusate Sodium 8.6/50 MG Tablet PO SCH ×2 (09:50→21:37)
[2018-03-13] MEDS: rifAXIMin 550 MG Tablet PO SCH ×2 (09:50→21:37)
--- NOTE | 2018-03-13 10:26 | P.PNONC ---
Subjective Interval history: Patient seen in the morning. He is awake, alert mother at bedside. He has no overt bleeding overnight. He is conversing well. Objective Vital Signs/Intake & Output: Vital Signs 03/12/18 11:00 03/12/18 11:57 03/12/18 12:00 Temperature 99.5 F Pulse Rate 71 69 Respiratory Rate 40 H 34 H Blood Pressure 136/69 126/67 Pulse Oximetry 96 94 L 93 L 03/12/18 13:00 03/12/18 14:00 03/12/18 16:00 Temperature 98.7 F Pulse Rate 69 68 67 Respiratory Rate 37 H 28 H Blood Pressure 130/67 133/67 Pulse Oximetry 98 03/12/18 17:00 03/12/18 18:00 03/12/18 19:00 Temperature Pulse Rate 67 65 66 Respiratory Rate 34 H 34 H 10 L Blood Pressure 134/66 131/64 134/63 Pulse Oximetry 96 92 L 97 03/12/18 20:00 03/12/18 20:54 03/12/18 21:00 Temperature 98.8 F Pulse Rate 67 65 Respiratory Rate 18 28 H Blood Pressure 134/62 137/69 Pulse Oximetry 95 98 98 03/12/18 22:00 03/12/18 23:00 03/13/18 00:00 Temperature 98.4 F Pulse Rate 63 62 64 Respiratory Rate 34 H 18 34 H Blood Pressure 134/71 131/65 127/65 Pulse Oximetry 96 93 L 96 03/13/18 01:00 03/13/18 02:00 03/13/18 03:00 Temperature Pulse Rate 65 62 63 Respiratory Rate 37 H 13 35 H Blood Pressure 126/60 129/68 131/65 Pulse Oximetry 97 97 98 03/13/18 04:00 03/13/18 05:00 03/13/18 06:00 Temperature 99.8 F H Pulse Rate 61 62 59 L Respiratory Rate 31 H 32 H 3 L Blood Pressure 142/80 H 141/77 H 123/60 Pulse Oximetry 95 94 L 03/13/18 07:00 03/13/18 08:24 Temperature Pulse Rate 58 L Respiratory Rate 33 H Blood Pressure 126/62 Pulse Oximetry 93 L 98 Intake & Output 03/12/18 03/13/18 03/13/18 18:59 06:59 18:59 Intake Total 790 / 790 680 / 680 Output Total 800 / 800 2300 / 2300 Balance -10 / -10 -1620 / -1620 Weight 88.3 kg Intake: IV 400 / 400 200 / 200 Magnesium Sulfate 1 gm/D5W 100 100 / 100 100 / 100 ml Premix 100 ML @ 100 mls/hr IV.SIG Q1H [facility] Rx#:[id number] KCl 10 mEq Premix Inj 10 meq In 200 / 200 100 ml @ 100 mls/hr IV.SIG Q1H [facility] Rx#:[id number] KCl 20 mEq Premix Inj 20 meq In 100 / 100 100 ml @ 50 mls/hr IV.SIG Q2H PRN Rx#:[id number] Rocephin Inj 1,000 MG In NS Inj 100 / 100 100 ML @ 200 mls/hr IV.SIG Q24H [facility] Rx#:[id number] Oral 390 / 390 480 / 480 Output: Urine Amount (Catheter) 800 / 800 2300 / 2300 Indwelling Urethral Catheter 800 / 800 2300 / 2300 Other: Date of Last Bowel Movement 03/11/18 03/13/18 # Bowel Movements 2 Result Diagrams: 03/13/18 04:12 03/13/18 04:12 Laboratory Results: Laboratory Results - last 24 hr 03/12/18 03/12/18 03/12/18 11:41 13:52 18:35 WBC RBC Hgb Hct MCV MCH MCHC RDW Plt Count MPV PT INR APTT Fibrinogen 157 L Sodium Potassium Chloride Carbon Dioxide Anion Gap BUN Creatinine Estimated GFR POC Glucose 80 114 H Random Glucose Calcium Prot Corrected Calcium Phosphorus Magnesium Total Bilirubin AST ALT Alkaline Phosphatase Ammonia Total Protein Albumin 03/12/18 03/13/18 03/13/18 23:53 04:12 04:12 WBC 10.5 RBC 4.16 L Hgb 12.5 L Hct 35.9 L MCV 86.4 MCH 30.0 MCHC 34.7 RDW 15.9 Plt Count 152 MPV 7.9 PT INR APTT Fibrinogen Sodium 141 Potassium 3.2 L Chloride 110 H Carbon Dioxide 23.4 Anion Gap 8 BUN 10 Creatinine 0.56 L Estimated GFR Greater than 89 POC Glucose 90 Random Glucose 88 Calcium 7.1 L* Prot Corrected Calcium 7.8 L Phosphorus 2.2 L D Magnesium 2.1 Total Bilirubin 2.3 H AST 43 H ALT 42 Alkaline Phosphatase 93 Ammonia Total Protein 5.7 L Albumin 2.0 L 03/13/18 03/13/18 04:12 04:12 WBC RBC Hgb Hct MCV MCH MCHC RDW Plt Count MPV PT 13.9 H INR 1.4 APTT 26.8 Fibrinogen 151 L Sodium Potassium Chloride Carbon Dioxide Anion Gap BUN Creatinine Estimated GFR POC Glucose Random Glucose Calcium Prot Corrected Calcium Phosphorus Magnesium Total Bilirubin AST ALT Alkaline Phosphatase Ammonia 35 H Total Protein Albumin Culture Results: Microbiology 03/12/18 19:05 Gram Stain - Final Wound - Other 03/11/18 19:20 Stool Occult Blood (HOLLI) - Final Stool Hemoccult positive Medications: Active Medications Generic Name Dose Route Start Last Admin Trade Name Freq PRN Reason Stop Dose Admin Albuterol 2.5 mg 03/01/18 23:45 03/11/18 13:08 Albuterol Neb (Prn) NEB 2.5 mg Q2HR NEB PRN Administration SHORTNESS OF BREATH/WHEEZING Chlorhexidine Gluconate 15 ml 03/02/18 08:00 03/13/18 09:05 Peridex 0.12% Oral Kit OROPHARYNG Not Given BID@0800,2000 [facility] Collagenase 1 applicatio 03/12/18 17:00 03/13/18 09:49 Santyl Oint TOPICAL 1 applicatio DAILY [facility] Administration Furosemide 40 mg 03/12/18 18:00 03/12/18 17:34 Lasix Inj IV.PUSH 40 mg BID@0900,1800 [facility] Administration Propofol 1,000 mg in 100 mls @ 2.177 mls/hr 03/01/18 23:48 03/11/18 19:00 Diprivan 1000 Mg/100 Ml Inj IV.CONT Infused TITRATE PRN Titration Per Protocol Protocol 5 MCG/KG/MIN Potassium Chloride 40 meq in 100 mls @ 25 mls/hr 03/01/18 23:55 03/03/18 18: 44 Kcl 40 Meq Premix Inj IV.SIG Infused Q2H PRN Infusion For Potassium 2.8 - 3.2 mEq/L Potassium Chloride 20 meq in 100 mls @ 50 mls/hr 03/01/18 23:55 03/12/18 16: 54 Kcl 20 Meq Premix Inj IV.SIG Infused Q2H PRN Infusion For Potassium 3.3 - 3.5 mEq/L Potassium Chloride 40 meq in 100 mls @ 25 mls/hr 03/01/18 23:55 03/10/18 13: 12 Kcl 40 Meq Premix Inj IV.SIG Infused UNSCH PRN Infusion For Potassium 3.3 - 3.5 mEq/L Ceftriaxone Sodium 1,000 mg/ 100 mls @ 200 mls/hr 03/02/18 03:00 03/13/18 02: 29 Sodium Chloride IV.SIG 200 mls/hr Q24H [facility] Administration Dextrose 1,000 mls @ 30 mls/hr 03/02/18 18:30 03/12/18 19:45 D10w Inj IV.SIG Not Given .Q24H [facility] Insulin Human Regular 0 units 03/02/18 12:00 03/13/18 07:17 Novolin R Correctional Sugar Inj SQ Not Given Q6HR [facility] Protocol Lactulose 30 ml 03/10/18 11:00 03/13/18 07:16 Lactulose Liq PO 30 ml Q6H [facility] Administration Miscellaneous Medication 1 each 03/02/18 00:00 03/13/18 03:29 OROPHARYNG Not Given 0000,0400,1200,1600 [facility] Morphine Sulfate 2 mg 03/11/18 15:03 03/13/18 09:05 Morphine Inj IV.PUSH 2 mg Q4H PRN Administration PAIN SCALE 6 TO 10 Ondansetron HCl 4 mg 03/01/18 23:48 03/12/18 21:41 Zofran Inj IV.PUSH 4 mg Q6H PRN Administration NAUSEA OR VOMITING Pantoprazole Sodium 40 mg 03/09/18 14:00 03/12/18 14:28 Protonix Inj IV.PUSH 40 mg Q24H [facility] Administration Potassium Bicarb/Potassium Chloride 50 meq 03/01/18 23:55 03/10/18 22:38 K-Lyte Cl Eff PO 50 meq UNSCH PRN Administration For Potassium 3.3 - 3.5 mEq/L Propranolol HCl 5 mg 03/10/18 14:00 03/13/18 07:17 Inderal PO 5 mg Q8HR [facility] Administration Rifaximin 550 mg 03/05/18 21:00 03/13/18 09:50 Xifaxan PO 550 mg Q12HR [facility] Administration Senna/Docusate Sodium 1 tab 03/02/18 09:00 03/13/18 09:50 Yolanda-Colace PO Not Given BID [facility] Sodium Chloride 2 ml 03/02/18 09:00 03/13/18 09:33 Ns Flush IV.FLUSH 2 ml BID [facility] Administration Spironolactone 150 mg 03/11/18 09:00 03/13/18 09:29 Aldactone PO 150 mg DAILY [facility] Administration Objective Remarks: GENERAL: Thinner than previous exam well-developed patient. SKIN: Warm and dry. Extensive tattoo. HEAD: Normocephalic. EYES: No scleral icterus. No injection or drainage. NECK: Supple, trachea midline. No JVD or lymphadenopathy. LYMPHATIC: No adenopathy. CARDIOVASCULAR: Regular rate and rhythm without murmurs. RESPIRATORY: Breath sounds equal bilaterally. No accessory muscle use. GASTROINTESTINAL: Abdomen soft, non-tender, nondistended. EXTREMITIES: No cyanosis, or edema. MUSCULOSKELETAL: Adequate muscle tone. NEUROLOGICAL: No obvious focal deficit. Awake, alert, and oriented x3. Assessment/Plan - Plan 33-year-old man with history of alcoholic liver disease, hepatitis C leading to cirrhosis. He was admitted with massive upper GI bleed. He was transfused multiple blood products. Hematology oncology was consulted for the coagulopathy. Patient extubated. Hemoglobin is stable. PT/INR remains prolonged from his underlying liver disease. Discussed with the client server programmer yesterday. Amicar was discontinued. Review of labs showed negative lupus anticoagulant. Coagulopathy was due primarily to decrease synthetic function of the liver. Patient's and mother's questions were answered. Hematology will sign off. Available as needed.
[2018-03-13] MEDS: Potassium Chloride 25 MEQ Effervescent Tablet PO PRN (10:35)
[2018-03-13] MEDS: Potassium Chlor 20 mEq Premix 20 MEQ/100 ML PIGGYBACK IV.SIG PRN (10:37)
--- NOTE | 2018-03-13 13:13 | P.PNCC ---
Subjective Subjective Remarks/Hospital Course: This is a 33-year-old male. Date of admission 03/01/2018. Past medical includes hepatitis C, known liver cirrhosis, esophageal varices patient was actually admitted 02/14 with upper GI bleed. Patient had 3 columns of 2-3 grade esophageal varices that evaluated Sean with banding.. Patient presents to [facility] 03/01 witha chief complaint of hematemesis. EMS reports that his initial blood pressure on their arrival was in the 70s-80s with a heart rate in the 150s. They state that he has put out copious amounts of hematemesis. Patient states that this began approximately 30 minutes prior to arrival. He does admit to fever and chills as well with abdominal pain. No headache no recent trauma. No chest pain or shortness of breath. Patient was emergently intubated and central line was placed in the femoral region. Hemoglobin is noted to be 5.2. Emergently transfused 3 units PRBCs. GI was consulted to try to perform an upper endoscopy revealed copious amounts of blood in the esophagus. Epinephrine injection was attempted. Fantasma tube was placed. IR was called. Repeat laboratories revealed significant coagulopathy with elevated INR/PTT and low fibrinogen. Unable to do intervention. State they do not tips at this facility. Patient needs to be stabilized prior to any transfer. Remains intubated on low-dose norepinephrine drip. Currently receiving K Centra, FFP and cryoprecipitate. 03/02: remains in active hemorrhagic shock. bleeding continues to be uncontrolled. massive transfusion is ongoing. Totals currently: 22 prbc 16 FFP 4 plt 4 Cryo off levophed, but still actively bleeding, suctioning bright red blood from mouth and having bright red bloody bowel movements. Fantasma remains in place. lactate 11. remains acidotic. 03/03: remains intubated. bleeding has appeared to slow, but continues at a slow ooze. hgb now stable. platelets continue to drop in a combination of consumption and splenic sequestration. off vasopressors. likely plan for repeat EGD today. lactate is clearing, albeit slowly. totals: 29 prbc 16 FFP 9 plt 4 cryo 1mg factor 7 2 doses of KCentra 2 doses of Vit K 03/04: Remains sedated, orally intubated on mechanical ventilation. Fantasma tube remains in place. 03/05: Remains sedated, orally intubated on mechanical ventilation. Fantasma tube remains in place though it has been deflated. Hemoglobin remained stable at 12. 3.5 L of ascitic fluid drained with ultrasound guidance yesterday, fluid appears transudative. Following paracentesis FiO2 was decreased from 100- 50% and now is currently at 70%. Clinically significant volume overload persists with generalized anasarca scrotal edema. Initiating Lasix to mobilize fluids. Has been maintaining blood pressure for the last 48 hours. 03/06: remains intubated and sedated. hgb stable. GI wants to wait additional 24h before repeat EGD. remains volume overloaded. 03/07: Remains sedated, orally intubated on mechanical ventilation. Awaiting EGD with possible banding today by GI. Being diuresed. 03/08: Remains sedated, orally intubated on mechanical ventilation. Underwent TIPS procedure on 03/07 by interventional radiology. Awaiting EGD and colonoscopy today with possible removal of Fantasma tube and insertion of Dobbhoff. 03/09: Sedated, arousable, orally intubated on mechanical ventilation. Fantasma tube removed and replaced with Dobbhoff yesterday during EGD by GI 03/10: hgb stable. diuresing. more reinserted due to retention with severe scrotal edema. somnolent and decreasing sedation. on tube feeds. 03/11: Patient remains hemodynamically stable. Good urine output more than 6 L with forced diuresis. Awake on sedation will start weaning trial for possible extubation. Hemoglobin pending at this time 03/12: T-max 100. Currently afebrile. Hemoglobin remained stable. Attempted swallow evaluation per GI. Discontinuing aminocaproic as per discussion with hematology. Mother with questions about liver transplant. Different GI at this time. Subjective: 03/13: Currently resting in bed. Altered mental status which are likely orthostatic. Will check orthostatic blood pressure now. Hold parameters on propranolol with low heart rate. Awake and alert and interactive. Tolerating diet. Objective Vital Signs / I&O: Vital Signs 03/12/18 14:00 03/12/18 16:00 03/12/18 17:00 Temperature 98.7 F Pulse Rate 68 67 67 Respiratory Rate 28 H 34 H Blood Pressure 133/67 134/66 Pulse Oximetry 98 96 03/12/18 18:00 03/12/18 19:00 03/12/18 20:00 Temperature 98.8 F Pulse Rate 65 66 67 Respiratory Rate 34 H 10 L 18 Blood Pressure 131/64 134/63 134/62 Pulse Oximetry 92 L 97 95 03/12/18 20:54 03/12/18 21:00 03/12/18 22:00 Temperature Pulse Rate 65 63 Respiratory Rate 28 H 34 H Blood Pressure 137/69 134/71 Pulse Oximetry 98 98 96 03/12/18 23:00 03/13/18 00:00 03/13/18 01:00 Temperature 98.4 F Pulse Rate 62 64 65 Respiratory Rate 18 34 H 37 H Blood Pressure 131/65 127/65 126/60 Pulse Oximetry 93 L 96 97 03/13/18 02:00 03/13/18 03:00 03/13/18 04:00 Temperature 99.8 F H Pulse Rate 62 63 61 Respiratory Rate 13 35 H 31 H Blood Pressure 129/68 131/65 142/80 H Pulse Oximetry 97 98 95 03/13/18 05:00 03/13/18 06:00 03/13/18 07:00 Temperature Pulse Rate 62 59 L 58 L Respiratory Rate 32 H 3 L 33 H Blood Pressure 141/77 H 123/60 126/62 Pulse Oximetry 94 L 93 L 03/13/18 08:24 Temperature Pulse Rate Respiratory Rate Blood Pressure Pulse Oximetry 98 Intake & Output 03/12/18 03/13/18 03/13/18 18:59 06:59 18:59 Intake Total 790 / 790 680 / 680 Output Total 800 / 800 2300 / 2300 Balance -10 / -10 -1620 / -1620 Weight 88.3 kg Intake: IV 400 / 400 200 / 200 Magnesium Sulfate 1 gm/D5W 100 100 / 100 100 / 100 ml Premix 100 ML @ 100 mls/hr IV.SIG Q1H [facility] Rx#:[id number] KCl 10 mEq Premix Inj 10 meq In 200 / 200 100 ml @ 100 mls/hr IV.SIG Q1H [facility] Rx#:[id number] KCl 20 mEq Premix Inj 20 meq In 100 / 100 100 ml @ 50 mls/hr IV.SIG Q2H PRN Rx#:[id number] Rocephin Inj 1,000 MG In NS Inj 100 / 100 100 ML @ 200 mls/hr IV.SIG Q24H [facility] Rx#:[id number] Oral 390 / 390 480 / 480 Output: Urine Amount (Catheter) 800 / 800 2300 / 2300 Indwelling Urethral Catheter 800 / 800 2300 / 2300 Other: Date of Last Bowel Movement 03/11/18 03/13/18 # Bowel Movements 2 Result Diagrams: 03/13/18 04:12 03/13/18 04:12 Other Results: Microbiology 03/12/18 19:05 Wound - Other Gram Stain - Final 03/11/18 19:20 Stool Stool Occult Blood (HOLLI) - Final Hemoccult positive 03/04/18 16:19 Fluid - Peritoneal fluid Gram Stain - Final 03/04/18 16:19 Fluid - Peritoneal fluid Body Fluid Culture - Final No growth in 72 hours (aerobically and anaerobically ) 03/01/18 21:45 Blood - Peripheral Aerobic Blood Culture - Final No growth in 5 days 03/01/18 21:45 Blood - Peripheral Anaerobic Blood Culture - Final No growth in 5 days 03/01/18 21:40 Blood - Peripheral Aerobic Blood Culture - Final No growth in 5 days 03/01/18 21:40 Blood - Peripheral Anaerobic Blood Culture - Final No growth in 5 days 03/02/18 15:00 Sputum - Endotracheal Gram Stain - Final 03/02/18 15:00 Sputum - Endotracheal Sputum Culture - Final Rare growth normal respiratory tyrese 03/02/18 15:00 Nasal Aspirate Influenza Types A,B Antigen - Final Negative for FLU A and B antigen Infection due to influenza A or B cannot be ruled out since the antigen present in the sample may be below the detection limit of the test. Imaging: Chest X-Ray 03/01/18 00:00 CONCLUSION: Endotracheal tube tip is in the right mainstem bronchus. Retraction by 3 cm would be optimal Chest X-Ray 03/01/18 21:38 CONCLUSION: Minimal basilar atelectasis. No active disease. Chest X-Ray 03/02/18 00:00 CONCLUSION: Endotracheal tube and central line positioning is satisfactory. The Fantasma tube may be too deep. Worsening aeration. Chest X-Ray 03/03/18 00:00 CONCLUSION: Increasing bilateral airspace disease. Hypoaerated lungs Chest X-Ray 03/05/18 07:28 CONCLUSION: Worsening parenchymal process bilaterally probably worsening pulmonary edema. Pneumonia is difficult to exclude. Abdomen/Pelvis CTA 03/06/18 00:00 CONCLUSION: 1. The abdominal aorta, proximal celiac and superior mesenteric arteries are within normal limits. There is no evidence of active extravasation of contrast. 2. Cirrhotic liver again noted as well as splenomegaly. 3. New consolidation in both lung bases with small pleural effusions. There is moderate to large amount of ascitic fluid now noted throughout the abdomen as well as anasarca. TIPS 03/07/18 00:00 CONCLUSION: 1. Technically successful TIPS placement, as above. 2. Technically successful coil embolization of multiple short gastric and coronary varices. 3. PLAN: Baseline ultrasound examination in 2 weeks with surveillance ultrasound at 3 months, 6 months and one year. Chest X-Ray 03/08/18 08:52 CONCLUSION: 1. Stable tubes and lines, as above. 2. Significantly improved pulmonary edema pattern. Abdomen X-Ray 03/11/18 00:00 CONCLUSION: Evidence for previous TIPS procedure Mild colonic ileus Probable ascites. Chest X-Ray 03/11/18 05:00 CONCLUSION: 1. Nasogastric tube and endotracheal tube in place. 2. Mild hazy diffuse left lung opacity and mild patchy right lung base opacity. Chest X-Ray 03/12/18 06:00 CONCLUSION: 1. Suboptimal study with the lung apices cut off the exam. 2. The endotracheal tube is no longer visualized and the patient may have been extubated. This needs to be correlated. 3. Mid expiratory study with cardiomegaly and hazy opacity in the lungs without significant change. Objective Remarks: GENERAL: Young male, lying in bed, currently on nasal cannula no acute distress HEENT: Normocephalic. Atraumatic. Pupils equal, round, reactive, conjugate. NECK: Trachea is midline. There is no JVD. CHEST: Few crackles appreciated bases. Diminished. No wheezing. CARDIOVASCULAR: normal rate, regular rhythm. Sinus. ABDOMEN: Soft, nontender, less distended today. No guarding. No wheezing. MUSCULOSKELETAL: Pulses 2+. 1+ peripheral edema. NEUROLOGICAL: Cranial nerves II through XII grossly intact. Strength is equal symmetric. Normal sensation. Assessment and Plan - Assessment and Plan Plan: Neuro/Psych: Acute toxic metabolic encephalopathy- persistent Hepatic encephalopathy See GI for workup for hepatic encephalopathy Morphine sulfate 2 mg IV every 4 hours as needed pain We will add melatonin 5 mg at bedtime for sleep Oral oxycodone 5 mg every 6 hours as needed pain. CV: Acute hemorrhagic shock-resolved Lactic acidosis- resolved Off pressors KVO IV fluids Resp: Incentives spirometry while awake Nasal cannula to maintain saturations greater than equal to 92% GI: Upper GI bleed secondary to esophageal varices/acquired coagulopathy Liver cirrhosis Hepatitis C Elevated ammonia Status post upper endoscopy by Dr. Moeller on prior admission. Injected epinephrine. s/p repeat EGD 03/02: with variceal banding. Fantasma tube replaced with Dobbhoff during EGD on 03/08 s/p TIPS for recurrent variceal bleed with coiling of short gastric and cardiac varices on 03/07.r lactulose/rifaximin trend ammonia levels on Spironolactone 150mg po daily on furosemide 40 mg p.o. daily 5mg propranolol TID-- too hypotensive and bradycardic to increase higher. Large ascites noted, status post US guided paracentesis 03/04 with significant improvement in respiratory status after drainage of 3.5 L of ascitic fluid which appears transudative-cultures sent. GI okay to attempt swallow evaluation. Place Dobbhoff tube if fails : Straight catheterization as needed Endo: Sliding scale insulin Accu-Cheks to maintain euglycemia Renal: Acute kidney injury Creatinine currently within normal limit Accurate I's and O's Monitor urine output Heme: Acute blood loss anemia Acute coagulopathy - resolved. Hepatic failure DIC- resolved totals: 33 prbc 16 FFP 9 plt 4 cryo 1mg factor 7 2 doses of KCentra 2 doses of Vit K keep plt > 50k or 100k if active massive bleeding. serial CBC, coag goal hgb > 8 while active hemorrhage, INR < 1.4, fibrinogen > 150, plt > 100k. Discussed with hematology. Discontinued aminocaproic acid ID: ceftriaxone 1 g every 24 hours for upper GI bleed, SBP prophylaxis. Discontinue date documented MSK: PT evaluate and treat FEN: Acute hypopotassemia Acute hypophosphatemia Replace electrolytes as clinically indicated Access -Utilize peripheral IV. Discontinued right IJ CVL. Prophylaxis -GI -pantoprazole -DVT -SCD/pharmacological prophylaxis contraindicated with acute bleed D/W ETL ANALYST. Discussed with patient's mother at bedside, care plan discussed and all questions answered. Level 2
--- NOTE | 2018-03-13 16:46 | P.PNGI ---
Subjective Interval history: Patient is more alert, waved when entering Beginning to recognize the people taking care of him Discussed in detail with mother plan of care versus hospital stay and outpatient. She is concerned that patient will have a chance to be evaluated for liver transplant. States no alcohol or drugs in 1 year Beginning to feel more abdominal pressure, questionable increased ascites <Ema Higuera M - Last Filed: 03/13/18 16:46> Physical Exam Vital signs: Vital Signs 03/12/18 17:00 03/12/18 18:00 03/12/18 19:00 Temperature Pulse Rate 67 65 66 Respiratory Rate 34 H 34 H 10 L Blood Pressure 134/66 131/64 134/63 Pulse Oximetry 96 92 L 97 03/12/18 20:00 03/12/18 20:54 03/12/18 21:00 Temperature 98.8 F Pulse Rate 67 65 Respiratory Rate 18 28 H Blood Pressure 134/62 137/69 Pulse Oximetry 95 98 98 03/12/18 22:00 03/12/18 23:00 03/13/18 00:00 Temperature 98.4 F Pulse Rate 63 62 64 Respiratory Rate 34 H 18 34 H Blood Pressure 134/71 131/65 127/65 Pulse Oximetry 96 93 L 96 03/13/18 01:00 03/13/18 02:00 03/13/18 03:00 Temperature Pulse Rate 65 62 63 Respiratory Rate 37 H 13 35 H Blood Pressure 126/60 129/68 131/65 Pulse Oximetry 97 97 98 03/13/18 04:00 03/13/18 05:00 03/13/18 06:00 Temperature 99.8 F H Pulse Rate 61 62 59 L Respiratory Rate 31 H 32 H 3 L Blood Pressure 142/80 H 141/77 H 123/60 Pulse Oximetry 95 94 L 03/13/18 07:00 03/13/18 08:24 Temperature Pulse Rate 58 L Respiratory Rate 33 H Blood Pressure 126/62 Pulse Oximetry 93 L 98 Intake & Output 03/12/18 03/13/18 03/13/18 18:59 06:59 18:59 Intake Total 790 / 790 680 / 680 100 / 100 Output Total 800 / 800 2300 / 2300 Balance -10 / -10 -1620 / -1620 100 / 100 Weight 88.3 kg Intake: IV 400 / 400 200 / 200 100 / 100 Magnesium Sulfate 1 gm/D5W 100 100 / 100 100 / 100 ml Premix 100 ML @ 100 mls/hr IV.SIG Q1H NAV[facility] Rx#:[id number] KCl 10 mEq Premix Inj 10 meq In 200 / 200 100 ml @ 100 mls/hr IV.SIG Q1H NAV[facility] Rx#:[id number] KCl 20 mEq Premix Inj 20 meq In 100 / 100 100 / 100 100 ml @ 50 mls/hr IV.SIG Q2H PRN Rx#:[id number] Rocephin Inj 1,000 MG In NS Inj 100 / 100 100 ML @ 200 mls/hr IV.SIG Q24H [facility] Rx#:[id number] Oral 390 / 390 480 / 480 Output: Urine Amount (Catheter) 800 / 800 2300 / 2300 Indwelling Urethral Catheter 800 / 800 2300 / 2300 Other: Date of Last Bowel Movement 03/11/18 03/13/18 # Bowel Movements 2 - Constitutional moderate distress, disheveled, cooperative - Routine HEENT Exam Head: Present: normocephalic ENT: Present: mucous membranes moist (Pale) - Routine Respiratory Exam Present: decreased breath sounds, diminished air movement - Routine Cardiovascular Exam Present: S1, S2, bradycardia - Routine Abdominal Exam Present: distended (Moderate, soft to touch soft active bowel sounds) - Urinary Catheter Management Indwelling Urethral Catheter Cath placed during this visit: yes Reason for continuing: Acute urinary retention Insertion date: 03/08/18 Insertion time: 10:30 Condom Cath placed during this visit: no Reason for continuing: Not indwelling catheter <Ema Higuera - Last Filed: 03/13/18 16:46> Vital signs: Vital Signs 03/12/18 20:54 03/12/18 21:00 03/12/18 22:00 Temperature Pulse Rate 65 63 Respiratory Rate 28 H 34 H Blood Pressure 137/69 134/71 Pulse Oximetry 98 98 96 03/12/18 23:00 03/13/18 00:00 03/13/18 01:00 Temperature 98.4 F Pulse Rate 62 64 65 Respiratory Rate 18 34 H 37 H Blood Pressure 131/65 127/65 126/60 Pulse Oximetry 93 L 96 97 03/13/18 02:00 03/13/18 03:00 03/13/18 04:00 Temperature 99.8 F H Pulse Rate 62 63 61 Respiratory Rate 13 35 H 31 H Blood Pressure 129/68 131/65 142/80 H Pulse Oximetry 97 98 95 03/13/18 05:00 03/13/18 06:00 03/13/18 07:00 Temperature Pulse Rate 62 59 L 58 L Respiratory Rate 32 H 3 L 33 H Blood Pressure 141/77 H 123/60 126/62 Pulse Oximetry 94 L 93 L 03/13/18 08:00 03/13/18 08:24 03/13/18 09:00 Temperature 97.8 F Pulse Rate 57 L 54 L Respiratory Rate 13 18 Blood Pressure 135/81 153/79 H Pulse Oximetry 94 L 98 95 03/13/18 10:00 03/13/18 10:01 03/13/18 11:00 Temperature Pulse Rate 56 L 57 L 58 L Respiratory Rate 34 H 25 H 29 H Blood Pressure 108/58 L 145/76 H Pulse Oximetry 96 98 03/13/18 12:00 03/13/18 13:00 03/13/18 14:00 Temperature 98.7 F Pulse Rate 56 L 50 L 53 L Respiratory Rate 24 29 H 36 H Blood Pressure Pulse Oximetry 03/13/18 15:00 03/13/18 16:00 03/13/18 17:00 Temperature 98.3 F Pulse Rate 54 L 51 L 53 L Respiratory Rate 32 H 18 16 Blood Pressure Pulse Oximetry 03/13/18 18:00 03/13/18 19:00 03/13/18 20:00 Temperature Pulse Rate 51 L 52 L 55 L Respiratory Rate 28 H 43 H 31 H Blood Pressure Pulse Oximetry 03/13/18 20:01 Temperature Pulse Rate 55 L Respiratory Rate 13 Blood Pressure 175/84 H Pulse Oximetry Intake & Output 03/13/18 03/13/18 03/14/18 06:59 18:59 06:59 Intake Total 680 / 680 100 / 100 Output Total 2300 / 2300 Balance -1620 / -1620 100 / 100 Weight 88.3 kg Intake: IV 200 / 200 100 / 100 Magnesium Sulfate 1 gm/D5W 100 100 / 100 ml Premix 100 ML @ 100 mls/hr IV.SIG Q1H [facility] Rx#:[id number] KCl 20 mEq Premix Inj 20 meq In 100 / 100 100 ml @ 50 mls/hr IV.SIG Q2H PRN Rx#:[id number] Rocephin Inj 1,000 MG In NS Inj 100 / 100 100 ML @ 200 mls/hr IV.SIG Q24H NAVID Rx#:[id number] Oral 480 / 480 Output: Urine Amount (Catheter) 2300 / 2300 Indwelling Urethral Catheter 2300 / 2300 Other: Date of Last Bowel Movement 03/13/18 03/13/18 # Bowel Movements 2 - Urinary Catheter Management Indwelling Urethral Catheter Cath placed during this visit: no Condom Cath placed during this visit: no <Elizabeth Gambino - Last Filed: 03/13/18 20:50> Results - Labs CBC & Chem 7: 03/13/18 04:12 03/13/18 04:12 Laboratory Results - last 24 hr 03/12/18 03/12/18 03/13/18 18:35 23:53 04:12 WBC 10.5 RBC 4.16 L Hgb 12.5 L Hct 35.9 L MCV 86.4 MCH 30.0 MCHC 34.7 RDW 15.9 Plt Count 152 MPV 7.9 PT INR APTT Fibrinogen Sodium Potassium Chloride Carbon Dioxide Anion Gap BUN Creatinine Estimated GFR POC Glucose 114 H 90 Random Glucose Calcium Prot Corrected Calcium Phosphorus Magnesium Total Bilirubin AST ALT Alkaline Phosphatase Ammonia Total Protein Albumin 03/13/18 03/13/18 03/13/18 04:12 04:12 04:12 WBC RBC Hgb Hct MCV MCH MCHC RDW Plt Count MPV PT 13.9 H INR 1.4 APTT 26.8 Fibrinogen 151 L Sodium 141 Potassium 3.2 L Chloride 110 H Carbon Dioxide 23.4 Anion Gap 8 BUN 10 Creatinine 0.56 L Estimated GFR Greater than 89 POC Glucose Random Glucose 88 Calcium 7.1 L* Prot Corrected Calcium 7.8 L Phosphorus 2.2 L D Magnesium 2.1 Total Bilirubin 2.3 H AST 43 H ALT 42 Alkaline Phosphatase 93 Ammonia 35 H Total Protein 5.7 L Albumin 2.0 L 03/13/18 12:08 WBC RBC Hgb Hct MCV MCH MCHC RDW Plt Count MPV PT INR APTT Fibrinogen Sodium Potassium Chloride Carbon Dioxide Anion Gap BUN Creatinine Estimated GFR POC Glucose 101 Random Glucose Calcium Prot Corrected Calcium Phosphorus Magnesium Total Bilirubin AST ALT Alkaline Phosphatase Ammonia Total Protein Albumin Microbiology 03/12/18 19:05 Wound - Other Gram Stain - Final 03/12/18 19:05 Wound - Other Wound Culture - Preliminary Heavy growth normal skin tyrese at 24 hours <KalenEma M - Last Filed: 03/13/18 16:46> - Labs CBC & Chem 7: 03/13/18 04:12 03/13/18 04:12 Laboratory Results - last 24 hr 03/12/18 03/13/18 03/13/18 23:53 04:12 04:12 WBC 10.5 RBC 4.16 L Hgb 12.5 L Hct 35.9 L MCV 86.4 MCH 30.0 MCHC 34.7 RDW 15.9 Plt Count 152 MPV 7.9 PT INR APTT Fibrinogen Sodium 141 Potassium 3.2 L Chloride 110 H Carbon Dioxide 23.4 Anion Gap 8 BUN 10 Creatinine 0.56 L Estimated GFR Greater than 89 POC Glucose 90 Random Glucose 88 Calcium 7.1 L* Prot Corrected Calcium 7.8 L Phosphorus 2.2 L D Magnesium 2.1 Total Bilirubin 2.3 H AST 43 H ALT 42 Alkaline Phosphatase 93 Ammonia Total Protein 5.7 L Albumin 2.0 L 03/13/18 03/13/18 03/13/18 04:12 04:12 12:08 WBC RBC Hgb Hct MCV MCH MCHC RDW Plt Count MPV PT 13.9 H INR 1.4 APTT 26.8 Fibrinogen 151 L Sodium Potassium Chloride Carbon Dioxide Anion Gap BUN Creatinine Estimated GFR POC Glucose 101 Random Glucose Calcium Prot Corrected Calcium Phosphorus Magnesium Total Bilirubin AST ALT Alkaline Phosphatase Ammonia 35 H Total Protein Albumin 03/13/18 17:32 WBC RBC Hgb Hct MCV MCH MCHC RDW Plt Count MPV PT INR APTT Fibrinogen Sodium Potassium Chloride Carbon Dioxide Anion Gap BUN Creatinine Estimated GFR POC Glucose 132 H Random Glucose Calcium Prot Corrected Calcium Phosphorus Magnesium Total Bilirubin AST ALT Alkaline Phosphatase Ammonia Total Protein Albumin Microbiology 03/12/18 19:05 Wound - Other Gram Stain - Final 03/12/18 19:05 Wound - Other Wound Culture - Preliminary Heavy growth normal skin tyrese at 24 hours - Imaging Impressions Abdomen Ultrasound 03/13/18 00:00 CONCLUSION: 1. Small amount of ascites. <Elizabeth Gambino - Last Filed: 03/13/18 20:50> Assessment and Plan - Plan Upper GI bleeding secondary to esophageal varices S/P EGD (03/02)> large amount of blood in stomach. Fresh blood in the esophagus. Arterial lookingcould not be washed. Ulcers from previous banding site seenpossible source of bleeding, injected with epinephrine 6 mLBlakemore tube placed IR was consulted for TIPS, however this was cancelled because of labs indicative of severe coagulopathy Pt evaluated by hematology, recommending transfusion of platelets to maintain plts around 50,000. Noted that the problem is likely related to hepatic dysfunction. Fantasma deflated on 02/02 - Cirrhosis secondary to hepatitis C and EtOH abuse with complications of portal hypertension, coagulopathy, and recurrent GI bleed Hepatitis C, genotype 1 a, quant > 2 million - Ascites S/P paracentesis 03/05 --> 3.5 L of ascitic fluid drained by [facility] bedside. Fluid culture negative at 48 hours - Hyperammonemia- on Xifaxan and Lactulose 03/09/2018, patient does arouse to abdominal palpation. Patient is status post EGD and status post TIPS procedure. Mother is hopeful for liver transplant in the future, fair to poor prognosis. Peritoneal culture reviewed. Current hemoglobin 11.9 WBC count 9.2 Fantasma tube removed after EGD esophageal varices grade 2 no banding done status post TIPS cold and appliance per IR, portal gastropathy, old blood in stomach, hiatal hernia. AFP level to rule out liver mass. Patient is currently managed on Rocephin. 03/10/2018, continues with generalized edema will increase Aldactone to 150 daily, noted increased IV Lasix dose today with some increase in diuresis. Will monitor ammonia level since patient is status post TIPS. Okay for low- dose beta-raciel but not going to be necessary for long-term use since patient is status post TIPS. Continue tube feeds until goal rate 03/11/2018 slow ventilator weaning continues 1045 this a.m. patient noted nausea and vomiting NG tube was initially clamped but then was connected to low intermittent suction with clear yellow bilious fluid noted total over the past 2 hours 275 cc. No obvious blood noted labs reviewed current ammonia level 63. Started dark stools 2-3 times this a.m. but patient has not had bowel movement documented since 03/04 and patient has minimal bowel sounds. Current hemoglobin 13.5. Generalized edema appears to be improving with increase IV Lasix doses per health and wellness manager. Patient is status post TIPS procedure so close monitoring of patient's encephalopathy and ammonia level is critical. Appreciate any palliative care input currently patient remains full code, Rule out ileus 03/12/2018, abdomen continues to be round with minimal bowel sounds KUB did show mild colonic ileus, probable ascites. NG tube was accidentally out during a.m. hours. Patient was extubated on 03/11/2018 and is currently on room air. Speech therapy evaluation to check swallow and hopefully patient will be able to take his medicines without NG tube due to his history of varices. Patient is awake nodding his head and answering simple questions appropriately. Noted 3 liquid stools within the past 24 hours. Generalized edema gradual improvement noted, trace to 1+ lower extremity edema. Note patient is status post EGD on 03/02/2018 and will need recheck in 6 weeks. Hemoccult positive, but hemoglobin stable for now , ammonia level 28, patient shows no signs of encephalopathy Patient continues to show gradual improvement. Labs reviewed current hemoglobin 12.2, WBC count 11.1 03/13/2018 current hemoglobin 12.5, WBC count normal today. Some bradycardia noted with some lightheadedness when sitting up. Appears to have appetite improving but concerned that patient may be building up ascites again which is causing abdominal discomfort and pressure Plan Diet, as tolerated per attending, regular diet Continue same medical management, Inderal dc. Patient is status post TIPS Ultrasound of the abdomen to evaluate ascites, consider paracentesis if warranted Monitor labs Supportive care explained to patient and mom our initial goal is to stabilize patient and get him feeling better he will follow GI on an outpatient basis where further discussion will be long-term goals, liver transplant evaluation as long as patient meets the criteria Patient was seen per myself and Dr. Gambino, note was written on his behalf <Ema Higuera - Last Filed: 03/13/18 16:46> - Plan Agree with above note and plan, continue supportive care, monitor ascites, we will sign off at this point and follow-up as needed please call us back <Elizabeth Gambino - Last Filed: 03/13/18 20:50>
--- NOTE | 2018-03-13 19:37 | US ---
EXAM DATE: 03/13/2018 6:20 PM EST AGE/SEX: 33 years / Male INDICATIONS: Ascites. CLINICAL DATA: This is the patient's initial encounter. Patient reports that signs and symptoms have been present for 2 days and indicates a pain score of 6/10. MEDICAL/SURGICAL HISTORY: Hypertension. Cirrhosis. AFIB. . COMPARISON: No prior exams available for comparison. FINDINGS: Small amount of abdominal ascites in the right upper quadrant and midline pelvis. CONCLUSION: 1. Small amount of ascites. Electronically signed by: Edi Reynoso MD 03/13/2018 7:35 PM EST
[2018-03-13] MEDS: Melatonin 5 MG Tablet PO PRN (21:36)
[2018-03-14] MEDS: Insulin NovoLIN Regular Correctional Sugar Inj SQ SCH ×4 (00:44→19:11)
[2018-03-14] MEDS: Oral Hygiene Kit OROPHARYNG SCH ×4 (00:45→19:11)
[2018-03-14 05:17] LABS: Hematocrit 38.3 % (39.0-51.0); Hemoglobin 12.8 gm/dL (13.0-17.0); Mean Corpuscular HGB Conc 33.5 % (32.0-36.0); Mean Corpuscular Hemoglobin 29.2 pg (27.0-34.0); Mean Corpuscular Volume 87.1 fL (80.0-100.0); Mean Platelet Volume 7.7 fL (7.0-11.0); Platelet Count 190 th/mm3 (150-450); Red Blood Count 4.39 mil/mm3 (4.50-5.90); Red Cell Distribution Width 16.3 % (11.6-17.2); White Blood Count 11.6 th/mm3 (4.0-11.0)
[2018-03-14 05:42] LABS: Albumin 2.1 g/dL (3.4-5.0); Anion Gap 8 meq/L (5-15); Aspartate Aminotransferase 54 U/L (15-37); Blood Urea Nitrogen 6 mg/dL (7-18); Calcium 7.6 mg/dL (8.5-10.1); Carbon Dioxide 22.2 meq/L (21.0-32.0); Chloride 110 meq/L (98-107); Glomerular Filtration Rate Greater Than 89 mL/min (>89); Glucose,Random 88 mg/dL (74-106); Magnesium 1.8 mg/dL (1.5-2.5); Potassium 3.7 meq/L (3.5-5.1); Sodium 140 meq/L (136-145)
[2018-03-14 05:44] LABS: Alanine Aminotransferase 46 U/L (12-78); Phosphorus 2.9 mg/dL (2.5-4.9)
[2018-03-14 05:46] LABS: Alkaline Phosphatase 98 U/L (45-117); Total Protein 5.9 g/dL (6.4-8.2)
[2018-03-14 05:49] LABS: INR 1.4 Ratio; Prothrombin Time 14.5 sec (9.8-11.6)
[2018-03-14] MEDS: rifAXIMin 550 MG Tablet PO SCH ×2 (09:44→21:56)
[2018-03-14] MEDS: Chlorhexidine 0.12% Oral Kit 15 ML UDC OROPHARYNG SCH ×2 (09:44→21:58)
[2018-03-14] MEDS: Furosemide 40 MG Tablet PO SCH (09:44)
[2018-03-14] MEDS: Collagenase Oint 30 GM Tube TOPICAL SCH (09:45)
[2018-03-14] MEDS: Senna/Docusate Sodium 8.6/50 MG Tablet PO SCH ×2 (09:45→21:59)
--- NOTE | 2018-03-14 16:31 | P.DIET ---
Nutritional Evaluation Type of nutrition evaluation: follow-up Nutrition consult regarding: Tube Feeding Nutrition screening: MDC (wound) Screening comments: 03/05 NPO x3 days Objective - Diagnosis GI bleed - Objective % IBW: 138 (IBW = 172lb) Body Weight Used for Calculations: IBW Energy Needs - Lower Range (kCal/kg): 22 Energy Needs - Upper Range (kCal/kg): 28 Lower Limit kCal/kg (kCals): 1,720 Upper Limit kCal/kg (kCals): 2,190 Lower Limit Protein Factor (Grams per Kg): 1.0 Upper Limit Protein Factor (Grams per Kg): 1.5 Lower Protein Needs (Protein): 78 Upper Protein Needs (Protein): 117 Fluid Factor (ml/kg): 25 Estimated Fluid Needs (ml): 1,955 Dietitian Reviewed in Medical Record: Current diet, Curent medications, Intake & Output, Labs, Medical history, Tube feeding Diet Order: regular Speech Therapy Recommendations: Yes (pureed, thin liquids) Wound Care Note: sacrococcygeal area: unstageable pressure injury Objective Comments: PMH: AFIB hep C, HTN, liver cirrhosis, substance abuse Labs: BUN 6, Cr 0.44, Ca+ 7.6 Assessment Assessment: Pt AMS today. Pt currently on regular, pureed, thin liquids diet per ST recs. Good UOP, +LBM 03/13. Pt eating around 50-75% most meals and is tolerating well. [facility] for wound received 03/13 for unstageable wound on sacrococcygeal area. Wound care notes reviewed. RD to recommend Stefan 1 pkt BID to aid in wound healing. Continue to monitor PO intake and tolerance. Labs reviewed, dietitian following. Recommendations: 1. Continue regular, pureed diet per ST 2. RD to recommend Stefan 1 pkt BID to aid in wound healing 3. Continue to monitor PO intake and tolerance 4. Dietitian following Dietitian to Monitor: Lab values, Supplement acceptance, Intake & Output, Diet tolerance, Weight change, PO Intake, Medical course
--- NOTE | 2018-03-14 17:23 | P.PN ---
Subjective Interval history: feels "great" taking po good no abdominal pain no nausea or vomiting Physical Exam Vital signs: Vital Signs 03/13/18 18:00 03/13/18 19:00 03/13/18 20:00 Temperature Pulse Rate 51 L 52 L 55 L Respiratory Rate 28 H 43 H 31 H Blood Pressure Pulse Oximetry 100 03/13/18 20:01 03/13/18 21:00 03/13/18 21:01 Temperature Pulse Rate 55 L 56 L 68 Respiratory Rate 13 19 35 H Blood Pressure 175/84 H 130/66 Pulse Oximetry 03/13/18 22:00 03/13/18 23:00 03/14/18 00:00 Temperature 98.1 F Pulse Rate 61 55 L 55 L Respiratory Rate 9 L 11 L 39 H Blood Pressure 158/89 H 146/73 H 134/64 Pulse Oximetry 100 100 03/14/18 00:43 03/14/18 01:00 03/14/18 02:00 Temperature Pulse Rate 57 L 59 L Respiratory Rate 14 26 H 11 L Blood Pressure 144/70 H 142/76 H Pulse Oximetry 03/14/18 03:00 03/14/18 04:00 03/14/18 04:01 Temperature Pulse Rate 53 L 70 62 Respiratory Rate 35 H 49 H 25 H Blood Pressure 147/72 H 136/83 136/83 Pulse Oximetry 03/14/18 05:00 03/14/18 06:00 03/14/18 07:00 Temperature Pulse Rate 52 L 49 L 45 L Respiratory Rate 27 H 32 H 35 H Blood Pressure 147/72 H Pulse Oximetry 03/14/18 07:48 03/14/18 08:00 03/14/18 09:00 Temperature Pulse Rate 55 L 50 L 60 Respiratory Rate 34 H 37 H 33 H Blood Pressure 127/61 Pulse Oximetry 98 82 L 03/14/18 09:51 03/14/18 10:00 03/14/18 11:12 Temperature Pulse Rate 52 L 53 L Respiratory Rate 35 H 35 H Blood Pressure 137/76 153/78 H Pulse Oximetry 98 03/14/18 12:00 03/14/18 13:00 Temperature 97.6 F Pulse Rate 56 L 54 L Respiratory Rate 27 H 33 H Blood Pressure 150/76 H Pulse Oximetry 97 Intake & Output 03/13/18 03/14/18 03/14/18 18:59 06:59 18:59 Intake Total 750 / 750 410 / 410 Output Total 1050 / 1050 1200 / 1200 Balance -300 / -300 -790 / -790 Weight 91.2 kg Intake: IV 100 / 100 360 / 360 KCl 20 mEq Premix Inj 20 meq In 100 / 100 100 ml @ 50 mls/hr IV.SIG Q2H PRN Rx#:[id number] Potassium Phosphate Inj 30 MMOL 260 / 260 In NS Inj 250 ML @ 42 mls/hr IV.SIG UNSCH PRN Rx#:[id number] Rocephin Inj 1,000 MG In NS Inj 100 / 100 100 ML @ 200 mls/hr IV.SIG Q24H [facility] Rx#:[id number] Oral 650 / 650 50 / 50 Output: Urine Amount (Catheter) 1050 / 1050 1200 / 1200 Indwelling Urethral Catheter 1050 / 1050 1200 / 1200 Other: Date of Last Bowel Movement 03/13/18 03/14/18 03/14/18 Narrative: awake and alert, oriented x 3, speech clear slight icteresia neck supple lungs- n rales regular rhythm abdomen-soft, good bowel sounds, nontender, flabby extremities no edema neuro exam- unremarkable - Urinary Catheter Management Indwelling Urethral Catheter Cath placed during this visit: yes, but has since been removed by the nurse Reason for continuing: Acute urinary retention Insertion date: 03/08/18 Insertion time: 10:30 Removal date: 03/14/18 Removal time: 10:00 Condom Cath placed during this visit: no Reason for continuing: Not indwelling catheter Results - Labs CBC & Chem 7: 03/14/18 05:05 03/14/18 05:05 Laboratory Results - last 24 hr 03/13/18 03/14/18 03/14/18 17:32 00:27 05:05 WBC 11.6 H RBC 4.39 L Hgb 12.8 L Hct 38.3 L MCV 87.1 MCH 29.2 MCHC 33.5 RDW 16.3 Plt Count 190 MPV 7.7 PT INR Sodium Potassium Chloride Carbon Dioxide Anion Gap BUN Creatinine Estimated GFR POC Glucose 132 H 106 Random Glucose Calcium Phosphorus Magnesium Total Bilirubin AST ALT Alkaline Phosphatase Ammonia Total Protein Albumin 03/14/18 03/14/18 03/14/18 05:05 05:05 05:05 WBC RBC Hgb Hct MCV MCH MCHC RDW Plt Count MPV PT 14.5 H INR 1.4 Sodium 140 Potassium 3.7 Chloride 110 H Carbon Dioxide 22.2 Anion Gap 8 BUN 6 L Creatinine 0.44 L Estimated GFR Greater than 89 POC Glucose Random Glucose 88 Calcium 7.6 L Phosphorus 2.9 Magnesium 1.8 Total Bilirubin 2.5 H AST 54 H ALT 46 Alkaline Phosphatase 98 Ammonia 20 Total Protein 5.9 L Albumin 2.1 L 03/14/18 03/14/18 03/14/18 05:42 12:48 16:51 WBC RBC Hgb Hct MCV MCH MCHC RDW Plt Count MPV PT INR Sodium Potassium Chloride Carbon Dioxide Anion Gap BUN Creatinine Estimated GFR POC Glucose 84 108 82 Random Glucose Calcium Phosphorus Magnesium Total Bilirubin AST ALT Alkaline Phosphatase Ammonia Total Protein Albumin Microbiology 03/12/18 19:05 Wound - Other Gram Stain - Final 03/12/18 19:05 Wound - Other Wound Culture - Preliminary Group D Enterococcus Yeast - ID to follow - Imaging Impressions Abdomen Ultrasound 03/13/18 00:00 CONCLUSION: 1. Small amount of ascites. Assessment and Plan - Plan 33 ywars old male Acute toxic metabolic encephalopathy-IMproved Hepatic encephalopathy - Monitor MS- improved. awake and alert, motivated with lifestuyle changes See GI for workup for hepatic encephalopathy Morphine sulfate 2 mg IV every 4 hours as needed pain We will add melatonin 5 mg at bedtime for sleep Oral oxycodone 5 mg every 6 hours as needed pain. S/P Upper GI bleeding secondary to esophageal varices s/p repeat EGD 03/02: with variceal banding. Fantasma tube replaced with Dobbhoff during EGD on 03/08 s/p TIPS for recurrent variceal bleed with coiling of short gastric and cardiac varices on 03/07.r lactulose/rifaximin trend ammonia levels on Spironolactone 150mg po daily on furosemide 40 mg p.o. daily 5mg propranolol TID-- too hypotensive and bradycardic to increase higher. Large ascites noted, status post US guided paracentesis 03/04 with significant improvement in respiratory status after drainage of 3.5 L of ascitic fluid which appears transudative-cultures sent. - tolerating regular diet- swallowing good Cirrhosis secondary to hepatitis C and EtOH abuse with complications of portal hypertension, coagulopathy, and recurrent GI bleed Hepatitis C, genotype 1 a, quant > 2 million - patient motivated with lifestyle changes Ascites S/P paracentesis 03/05 --> 3.5 L of ascitic fluid drained by [facility] bedside. Fluid culture negative at 48 hours -repeat US- 03/13- minimal ascites Hyperammonemia- on Xifaxan and Lactulose Acute hemorrhagic shock-resolved Acute blood loss anemia Acute coagulopathy - resolved. Hepatic failure DIC- resolved Off pressors H and H stable totals: 33 prbc 16 FFP 9 plt 4 cryo 1mg factor 7 2 doses of KCentra 2 doses of Vit K keep plt > 50k or 100k if active massive bleeding. serial CBC, coag goal hgb > 8 while active hemorrhage, INR < 1.4, fibrinogen > 150, plt > 100k. Hematology ff. Discontinued aminocaproic acid Acute kidney injury= resolved Creatinine currently within normal limit Accurate I's and O's Monitor urine output ID: ceftriaxone 1 g every 24 hours for upper GI bleed, SBP prophylaxis.till 03/16- stop date entered FEN: Acute hypopotassemia- improved Acute hypophosphatemia Replace electrolytes as clinically indicated Prophylaxis -GI -pantoprazole -DVT -SCD/pharmacological prophylaxis contraindicated with acute bleed PT eval and treat UP and ambulating d/w patient- needs a PCP to [facility] process of getting Medicaid
[2018-03-15] MEDS: Oral Hygiene Kit OROPHARYNG SCH ×2 (04:01→08:59)
[2018-03-15] MEDS: Insulin NovoLIN Regular Correctional Sugar Inj SQ SCH ×2 (04:02→09:00)
[2018-03-15 06:11] LABS: Hematocrit 35.3 % (39.0-51.0); Hemoglobin 12.4 gm/dL (13.0-17.0); Mean Corpuscular HGB Conc 35.1 % (32.0-36.0); Mean Corpuscular Hemoglobin 30.2 pg (27.0-34.0); Mean Corpuscular Volume 86.2 fL (80.0-100.0); Mean Platelet Volume 7.8 fL (7.0-11.0); Platelet Count 193 th/mm3 (150-450); Red Cell Distribution Width 16.5 % (11.6-17.2); White Blood Count 9.7 th/mm3 (4.0-11.0)
[2018-03-15 06:18] LABS: INR 1.6 Ratio; Prothrombin Time 15.9 sec (9.8-11.6)
[2018-03-15 07:28] LABS: Alanine Aminotransferase 45 U/L (12-78); Albumin 2.1 g/dL (3.4-5.0); Alkaline Phosphatase 92 U/L (45-117); Anion Gap 9 meq/L (5-15); Blood Urea Nitrogen 5 mg/dL (7-18); Calcium 7.4 mg/dL (8.5-10.1); Carbon Dioxide 20.8 meq/L (21.0-32.0); Chloride 112 meq/L (98-107); Glomerular Filtration Rate Greater Than 89 mL/min (>89); Glucose,Random 84 mg/dL (74-106); Magnesium 1.7 mg/dL (1.5-2.5); Phosphorus 3.2 mg/dL (2.5-4.9); Potassium 3.5 meq/L (3.5-5.1); Sodium 142 meq/L (136-145); Total Protein 5.8 g/dL (6.4-8.2)
[2018-03-15 07:30] LABS: Aspartate Aminotransferase 39 U/L (15-37)
[2018-03-15] MEDS: Chlorhexidine 0.12% Oral Kit 15 ML UDC OROPHARYNG SCH ×2 (09:16→21:44)
[2018-03-15] MEDS: Senna/Docusate Sodium 8.6/50 MG Tablet PO SCH ×2 (09:17→21:45)
[2018-03-15] MEDS: rifAXIMin 550 MG Tablet PO SCH ×2 (09:18→21:45)
[2018-03-15] MEDS: Furosemide 40 MG Tablet PO SCH (09:18)
[2018-03-15] MEDS: Collagenase Oint 30 GM Tube TOPICAL SCH (09:20)
--- NOTE | 2018-03-15 10:16 | P.PN ---
Subjective Interval history: Follow up for GI bleed, hepatic encephalopathy, cirrhosis, ascites, sacral ulcer. The patient is seen resting in bed. Reports not getting any sleep last night. He is tolerating small amounts of oral intake without any nausea/ vomiting. Denies any abdominal pain currently and denies any worsening abdominal distention. Denies fevers/chills. Requesting shower and sacral ulcer dressing changes. Requesting Ensure to be added to meals. No other medical complaints at this time. Does not feel ready for discharge. Physical Exam Vital signs: Vital Signs 03/14/18 11:12 03/14/18 12:00 03/14/18 13:00 Temperature 97.6 F Pulse Rate 56 L 54 L Respiratory Rate 27 H 33 H Blood Pressure 150/76 H Pulse Oximetry 98 97 03/14/18 19:47 03/14/18 20:00 03/14/18 23:40 Temperature 98.4 F 99.2 F Pulse Rate 81 54 L Respiratory Rate 30 H 24 Blood Pressure 147/64 H 143/70 H Pulse Oximetry 98 97 97 03/15/18 04:08 03/15/18 08:00 Temperature 98.1 F 97.8 F Pulse Rate 54 L 55 L Respiratory Rate 28 H 20 Blood Pressure 113/58 L 143/68 H Pulse Oximetry 97 98 Intake & Output 03/14/18 03/15/18 03/15/18 18:59 06:59 18:59 Intake Total 100 / 100 Balance 100 / 100 Weight 88.6 kg Intake: Oral 100 / 100 Other: # Voids 1 2 Date of Last Bowel Movement 03/14/18 Narrative: GENERAL: Well-nourished, well-developed young male patient in [facility]. Sleeping upon my arrival. SKIN: Warm and dry. Sacral ulcer covered with dressing. HEENT: Normocephalic. Atraumatic. Pupils equal and round. Mucous membranes pink and moist. CARDIOVASCULAR: Regular rate and rhythm. No murmur appreciated. RESPIRATORY: No accessory muscle use. Clear to auscultation. Breath sounds equal bilaterally. GASTROINTESTINAL: Abdomen soft, non-tender, nondistended. Normoactive bowel sounds x4. MUSCULOSKELETAL: No obvious deformities. Extremities without clubbing, cyanosis , or edema. NEUROLOGICAL: Awake and alert. No obvious cranial nerve deficits. Normal speech. PSYCHIATRIC: Appropriate mood and affect; insight and judgment normal. - Urinary Catheter Management Indwelling Urethral Catheter Cath placed during this visit: yes, but has since been removed by the nurse Reason for continuing: Acute urinary retention Insertion date: 03/08/18 Insertion time: 10:30 Removal date: 03/14/18 Removal time: 10:00 Condom Cath placed during this visit: no Reason for continuing: Not indwelling catheter Results - Labs CBC & Chem 7: 03/15/18 05:48 03/15/18 05:48 Laboratory Results - last 24 hr 03/14/18 03/14/18 03/14/18 12:48 16:51 22:03 WBC RBC Hgb Hct MCV MCH MCHC RDW Plt Count MPV PT INR Sodium Potassium Chloride Carbon Dioxide Anion Gap BUN Creatinine Estimated GFR POC Glucose 108 82 87 Random Glucose Calcium Prot Corrected Calcium Phosphorus Magnesium Total Bilirubin AST ALT Alkaline Phosphatase Ammonia Total Protein Albumin 03/15/18 03/15/18 03/15/18 05:48 05:48 05:48 WBC 9.7 RBC 4.10 L Hgb 12.4 L Hct 35.3 L MCV 86.2 MCH 30.2 MCHC 35.1 RDW 16.5 Plt Count 193 MPV 7.8 PT 15.9 H INR 1.6 Sodium 142 Potassium 3.5 Chloride 112 H Carbon Dioxide 20.8 L Anion Gap 9 BUN 5 L Creatinine 0.40 L Estimated GFR Greater than 89 POC Glucose Random Glucose 84 Calcium 7.4 L* Prot Corrected Calcium 8.1 L Phosphorus 3.2 Magnesium 1.7 Total Bilirubin 2.3 H AST 39 H ALT 45 Alkaline Phosphatase 92 Ammonia Total Protein 5.8 L Albumin 2.1 L 03/15/18 03/15/18 05:48 08:44 WBC RBC Hgb Hct MCV MCH MCHC RDW Plt Count MPV PT INR Sodium Potassium Chloride Carbon Dioxide Anion Gap BUN Creatinine Estimated GFR POC Glucose 101 Random Glucose Calcium Prot Corrected Calcium Phosphorus Magnesium Total Bilirubin AST ALT Alkaline Phosphatase Ammonia 26 Total Protein Albumin Microbiology 03/12/18 19:05 Wound - Other Gram Stain - Final 03/12/18 19:05 Wound - Other Wound Culture - Preliminary Enterococcus faecalis Yeast - ID to follow - Imaging Chest X-Ray 03/01/18 00:00 CONCLUSION: Endotracheal tube tip is in the right mainstem bronchus. Retraction by 3 cm would be optimal Chest X-Ray 03/01/18 21:38 CONCLUSION: Minimal basilar atelectasis. No active disease. Chest X-Ray 03/02/18 00:00 CONCLUSION: Endotracheal tube and central line positioning is satisfactory. The Fantasma tube may be too deep. Worsening aeration. Chest X-Ray 03/03/18 00:00 CONCLUSION: Increasing bilateral airspace disease. Hypoaerated lungs Chest X-Ray 03/05/18 07:28 CONCLUSION: Worsening parenchymal process bilaterally probably worsening pulmonary edema. Pneumonia is difficult to exclude. Abdomen/Pelvis CTA 03/06/18 00:00 CONCLUSION: 1. The abdominal aorta, proximal celiac and superior mesenteric arteries are within normal limits. There is no evidence of active extravasation of contrast. 2. Cirrhotic liver again noted as well as splenomegaly. 3. New consolidation in both lung bases with small pleural effusions. There is moderate to large amount of ascitic fluid now noted throughout the abdomen as well as anasarca. TIPS 03/07/18 00:00 CONCLUSION: 1. Technically successful TIPS placement, as above. 2. Technically successful coil embolization of multiple short gastric and coronary varices. 3. PLAN: Baseline ultrasound examination in 2 weeks with surveillance ultrasound at 3 months, 6 months and one year. Chest X-Ray 03/08/18 08:52 CONCLUSION: 1. Stable tubes and lines, as above. 2. Significantly improved pulmonary edema pattern. Abdomen X-Ray 03/11/18 00:00 CONCLUSION: Evidence for previous TIPS procedure Mild colonic ileus Probable ascites. Chest X-Ray 03/11/18 05:00 CONCLUSION: 1. Nasogastric tube and endotracheal tube in place. 2. Mild hazy diffuse left lung opacity and mild patchy right lung base opacity. Chest X-Ray 03/12/18 06:00 CONCLUSION: 1. Suboptimal study with the lung apices cut off the exam. 2. The endotracheal tube is no longer visualized and the patient may have been extubated. This needs to be correlated. 3. Mid expiratory study with cardiomegaly and hazy opacity in the lungs without significant change. Abdomen Ultrasound 03/13/18 00:00 CONCLUSION: 1. Small amount of ascites. - Procedures 03/01/18 - Procedure: EGD. Findings: Large amount of blood in stomach. Fresh blood in esophagus -arterial looking-could not be washed. Ulcers from previous banding site seen-possible source of bleeding. Epinephrine 6 cc -injected large amount of fresh blood. Edel tube placed 03/04/18 - Procedure: Ultrasound-guided abdominal paracentesis, removed 3.5L 03/07/18 - Procedure: IR performed successful TIPS placement; successful coil embolization of multiple short gastric and coronary varices Assessment and Plan - Plan 33-year-old male with hx of liver cirrhosis, hepatitis C, esophageal varices s/ p banding, substance abuse, hypertension, afib, presents with hematemesis and a SBP of 70s with HR 150s upon arrival, with copious amounts of hematemesis. Admitted to ICU upon arrival. Acute Hemorrhagic Shock Upper GI bleeding with Severe Acute Blood Loss Anemia secondary to bleeding esophageal varices -Hgb 5.3 upon arrival with active hemorrhagic bleeding, admitted to ICU s/p pressors and massive transfusions -GI consulted, appreciate assistance -S/p multiple blood transfusions during admission, totalling 33u pRBCs, 16u FFP, 10u platelets -03/01 Emergent EGD showed Large amount of blood in stomach. Fresh blood in esophagus -arterial looking-could not be washed. Ulcers from previous banding site seen-possible source of bleeding. Epinephrine 6 cc -injected large amount of fresh blood. Edel tube placed. -03/07 IR performed successful TIPS placement; successful coil embolization of multiple short gastric and coronary varices -03/08 Repeat EGD showed Esophageal varices grade 2-no banding done s/p recent tips, coil appliance by IR, Fantasma tube replaced -S/p octreotide drip, protonix drip -now on protonix 40mg po daily -on IV rocephin x2 weeks, to be completed 03/16 -Hgb now stable at 12.4, no further signs of bleeding -tolerating small amounts of oral intake, not ready for discharge Acute toxic metabolic encephalopathy Hepatic encephalopathy with hyperammonemia -S/p admission to ICU -Ammonia trended 62 --> 29 --> 59 --> 66 --> 63 --> 28 --> 35 --> 20 --> 26 -Continue on lactulose, lasix, rifaximin, spironolactione, per GI -Monitor neuro checks -Much improved, AAOx4 Cirrhosis/Ascites secondary to hepatitis C and EtOH abuse, with complications of portal hypertension, coagulopathy -s/p hepatic encephalopathy, now AAOx4 -continue on lasix, spironolactone, rifaximin, lactulose -did not tolerate propranolol due to bradycardia -03/04 s/p Ultrasound-guided abdominal paracentesis by critical care MD, removed 3.5L, significantly improved respiratory status immediately post procedure -peritoneal fluid culture with NGTD -repeat U/S 03/13 with minimal ascites -continue to monitor -GI following -patient motivated with lifestyle changes Coagulopathy secondary to liver disease -Hematology consulted, appreciate recommendations Abdominal Pain -secondary to above -continue pain control with oxycodone and morphine prn Insomnia -secondary to hospitalization -continue melatonin -added temazepam 15mg po hs prn Prophylaxis -GI -pantoprazole -DVT -SCDs; pharmacological prophylaxis contraindicated with acute bleed PT eval and treat d/w patient- needs a PCP to ff up, states process of getting Medicaid Discharge Planning: Clinically improving. Possible discharge in 2-3 days if stable and tolerating oral intake.
--- NOTE | 2018-03-15 17:27 | P.CONID ---
History of Present Illness Service: Infectious Disease Consult date: 03/15/18 Requesting Physician: Johnna Ramsey Reason for Consult: Evaluation and Mment of possible infected sacral decub ulcer. Primary Care Provider: UNKNOWN Chief Complaint: Hematemesis History of Present Illness: Mr. Bonilla is a 33-year-old male with past medical history significant for hepatitis C, prior known liver cirrhosis, esophageal varices who was initially admitted on March 01, 2018. Of note this is patient's second admission for similar issues patient was admitted on February 14, 2018 for upper GI bleed and had esophageal varices that were banded by gastroenterology during that admission. Patient now presents to [facility] with complaints of hematemesis. EMS initially reported his initial blood pressure to be 70s by 80s with a heart rate of 150s. Patient had reportedly had copious amounts of hematemesis. Patient initially reported that he had fever and chills as well as abdominal pain on admission. He denied any other systemic symptoms. He reports that he continued to drink alcohol and take oral drugs for recreational purposes. He denies any IV drug abuse. Hospital course: Patient was emergently intubated underwent upper endoscopy which revealed copious amounts of blood in the esophagus. Patient had several blood products administered and at some point there was some discussion about the TIPS procedure. During his hospitalization due to prolonged bedridden status patient developed a sacral decubitus ulcer. Patient also was on lactulose for his altered mental status secondary to hepatic encephalopathy and has been having 3-4 BMs on a daily basis. Wound cultures were obtained due to periwound erythema and sloughing. Wound care has been following the patient and obtain wound cultures. Wound cultures are now reported as positive for Enterococcus faecalis as well as Lisa. Infectious diseases consulted for the same. Review of Systems other (Not reliable) [facility] - History History Provided By: Family Member - Medical History Medical History: Medical History (Last Reviewed 03/15/18 @ 08:36 by Sofiya Esteves) Afib Hep C w/o coma, chronic Hypertension Liver cirrhosis Substance abuse - Surgical History Surgical History: Surgical History (Last Reviewed 03/15/18 @ 08:36 by Sofiya Esteves) No history of previous surgery (Acute) - Family History Family History: Family History (Last Reviewed 03/15/18 @ 08:36 by Sofiya Esteves) Other Heart problem - Tobacco History Second Hand Smoke Exposure: No Tobacco Use In Past 30 Days: No Smoking Status: Former smoker Tobacco Type: Cigarettes - Alcohol History How Often Do You Have a Drink Containing Alcohol: Monthly or less - Substance Use History Substance History: No History of Abuse - Travel History Recent Travel in the [place] Within the Last 8 Weeks: No Recent Travel Out of the Country Within the Last 8 Weeks: No - Immunization History Tetanus Immunization: <5 Years Hx Influenza Vaccine This Season: Yes Medications and Allergies Active Medications: Active Medications Al Hydroxide/Mg Hydroxide (Milk Of Magnesia Liq) 30 ml PO Q12H PRN PRN Reason: Mild Constipation Albuterol (Albuterol Neb (Prn)) 2.5 mg NEB Q2HR NEB PRN PRN Reason: SHORTNESS OF BREATH/WHEEZING Last Admin: 03/11/18 13:08 Dose: 2.5 mg Bisacodyl (Dulcolax Supp) 10 mg RECTAL DAILY PRN PRN Reason: SEVERE CONSITIPATION Chlorhexidine Gluconate (Peridex 0.12% Oral Kit) 15 ml OROPHARYNG BID@0800, 2000 [facility] Last Admin: 03/15/18 09:16 Dose: Not Given Collagenase (Santyl Oint) 1 applicatio TOPICAL DAILY [facility] Last Admin: 03/15/18 09:20 Dose: 1 applicatio Dextrose (D50w Vial) 50 ml IV.PUSH UNSCH PRN PRN Reason: PER HYPOGLYCEMIA PROTOCOL Furosemide (Lasix) 40 mg PO DAILY [facility] Last Admin: 03/15/18 09:18 Dose: 40 mg Glucagon (Glucagon Inj) 1 mg OTHER PRN PRN PRN Reason: for Hypoglycemia Protocol Ceftriaxone Sodium 1,000 mg/ (Sodium Chloride) 100 mls @ 200 mls/hr IV.SIG Q24H [facility] Stop: 03/16/18 02:59 Last Admin: 03/15/18 04:00 Dose: 200 mls/hr Insulin Human Regular (Novolin R Correctional Sugar Inj) 0 units SQ Q6HR [facility]; Protocol Last Admin: 03/15/18 09:00 Dose: Not Given Lactulose (Lactulose Liq) 30 ml PO Q6H [facility] Last Admin: 03/15/18 10:47 Dose: Not Given Melatonin (Melatonin) 5 mg PO HS PRN PRN Reason: INSOMNIA Last Admin: 03/13/18 21:36 Dose: 5 mg Miscellaneous Medication () 1 each OROPHARYNG 0000,0400,1200,1600 [facility] Last Admin: 03/15/18 08:59 Dose: Not Given Morphine Sulfate (Morphine Inj) 2 mg IV.PUSH Q4H PRN PRN Reason: Pain 8 through 10 Last Admin: 03/13/18 09:05 Dose: 2 mg Ondansetron HCl (Zofran Inj) 4 mg IV.PUSH Q6H PRN PRN Reason: NAUSEA OR VOMITING Last Admin: 03/12/18 21:41 Dose: 4 mg Oxycodone HCl (Roxicodone) 5 mg PO Q6H PRN PRN Reason: Pain 3 through 7 Last Admin: 03/13/18 21:37 Dose: 5 mg Pantoprazole Sodium (Protonix) 40 mg PO DAILY [facility] Last Admin: 03/15/18 09:18 Dose: 40 mg Rifaximin (Xifaxan) 550 mg PO Q12HR [facility] Last Admin: 03/15/18 09:18 Dose: 550 mg Senna/Docusate Sodium (Yolanda-Colace) 1 tab PO BID [facility] Last Admin: 03/15/18 09:17 Dose: 1 tab Sennosides (Senokot) 17.2 mg PO Q12H PRN PRN Reason: Moderate Constipation Sodium Chloride (Ns Flush) 2 ml IV.FLUSH BID [facility] Last Admin: 03/15/18 09:20 Dose: 2 ml Sodium Chloride (Ns Flush) 2 ml IV.FLUSH PRN PRN PRN Reason: FLUSH AFTER USING IV ACCESS Spironolactone (Aldactone) 150 mg PO DAILY [facility] Last Admin: 03/15/18 09:20 Dose: 150 mg Temazepam (Restoril) 15 mg PO HS PRN PRN Reason: INSOMNIA Allergies Allergy/AdvReac Type Severity Reaction Status Date / Time phenytoin Allergy Severe HIVES Verified 03/01/18 21:37 Home Medications Medication Instructions Recorded Confirmed Type No Known Home Medications 02/20/18 03/01/18 History Exam Vital signs: Vital Signs 03/14/18 19:47 03/14/18 20:00 03/14/18 23:40 Temperature 98.4 F 99.2 F Pulse Rate 81 54 L Respiratory Rate 30 H 24 Blood Pressure 147/64 H 143/70 H Pulse Oximetry 98 97 97 03/15/18 04:08 03/15/18 08:00 03/15/18 12:00 Temperature 98.1 F 97.8 F 97.6 F Pulse Rate 54 L 55 L 56 L Respiratory Rate 28 H 20 20 Blood Pressure 113/58 L 143/68 H 143/62 H Pulse Oximetry 97 98 97 Intake & Output 03/14/18 03/15/18 03/15/18 18:59 06:59 18:59 Intake Total 100 / 100 Balance 100 / 100 Weight 88.6 kg Intake: Oral 100 / 100 Other: # Voids 1 2 Date of Last Bowel Movement 03/14/18 Narrative: GENERAL: Well-nourished well-developed, not in acute distress SKIN: Cool and dry, no generalized rash. Multiple tattoos all over the body. HEAD: Atraumatic. Normocephalic. No temporal or scalp tenderness. EYES: Pupils equal round and reactive. Scleral icterus. No injection or drainage. No petechia ENT: Nothing abnormal detected NECK: Trachea midline. Supple, nontender, no meningeal signs. CARDIOVASCULAR: HS audible. RESPIRATORY: Clear to auscultation bilaterally. GASTROINTESTINAL: Abdomen soft nontender. MUSCULOSKELETAL: Extremities without clubbing, cyanosis. NEUROLOGICAL: Alert oriented 3. Nonfocal. Sacral area with ulceration noted on both sides of the buttock crack with yellowish white slough noted. Psych cooperative IV line sites ok. Results - Labs CBC & Chem 7: 03/15/18 05:48 03/15/18 05:48 Labs: Laboratory Results - last 24 hr 03/14/18 03/15/18 03/15/18 22:03 05:48 05:48 WBC 9.7 RBC 4.10 L Hgb 12.4 L Hct 35.3 L MCV 86.2 MCH 30.2 MCHC 35.1 RDW 16.5 Plt Count 193 MPV 7.8 PT 15.9 H INR 1.6 Sodium Potassium Chloride Carbon Dioxide Anion Gap BUN Creatinine Estimated GFR POC Glucose 87 Random Glucose Calcium Prot Corrected Calcium Phosphorus Magnesium Total Bilirubin AST ALT Alkaline Phosphatase Ammonia Total Protein Albumin 03/15/18 03/15/18 03/15/18 05:48 05:48 08:44 WBC RBC Hgb Hct MCV MCH MCHC RDW Plt Count MPV PT INR Sodium 142 Potassium 3.5 Chloride 112 H Carbon Dioxide 20.8 L Anion Gap 9 BUN 5 L Creatinine 0.40 L Estimated GFR Greater than 89 POC Glucose 101 Random Glucose 84 Calcium 7.4 L* Prot Corrected Calcium 8.1 L Phosphorus 3.2 Magnesium 1.7 Total Bilirubin 2.3 H AST 39 H ALT 45 Alkaline Phosphatase 92 Ammonia 26 Total Protein 5.8 L Albumin 2.1 L - Imaging Chest X-Ray 03/01/18 00:00 CONCLUSION: Endotracheal tube tip is in the right mainstem bronchus. Retraction by 3 cm would be optimal Chest X-Ray 03/01/18 21:38 CONCLUSION: Minimal basilar atelectasis. No active disease. Chest X-Ray 03/02/18 00:00 CONCLUSION: Endotracheal tube and central line positioning is satisfactory. The Fantasma tube may be too deep. Worsening aeration. Chest X-Ray 03/03/18 00:00 CONCLUSION: Increasing bilateral airspace disease. Hypoaerated lungs Chest X-Ray 03/05/18 07:28 CONCLUSION: Worsening parenchymal process bilaterally probably worsening pulmonary edema. Pneumonia is difficult to exclude. Abdomen/Pelvis CTA 03/06/18 00:00 CONCLUSION: 1. The abdominal aorta, proximal celiac and superior mesenteric arteries are within normal limits. There is no evidence of active extravasation of contrast. 2. Cirrhotic liver again noted as well as splenomegaly. 3. New consolidation in both lung bases with small pleural effusions. There is moderate to large amount of ascitic fluid now noted throughout the abdomen as well as anasarca. TIPS 03/07/18 00:00 CONCLUSION: 1. Technically successful TIPS placement, as above. 2. Technically successful coil embolization of multiple short gastric and coronary varices. 3. PLAN: Baseline ultrasound examination in 2 weeks with surveillance ultrasound at 3 months, 6 months and one year. Chest X-Ray 03/08/18 08:52 CONCLUSION: 1. Stable tubes and lines, as above. 2. Significantly improved pulmonary edema pattern. Abdomen X-Ray 03/11/18 00:00 CONCLUSION: Evidence for previous TIPS procedure Mild colonic ileus Probable ascites. Chest X-Ray 03/11/18 05:00 CONCLUSION: 1. Nasogastric tube and endotracheal tube in place. 2. Mild hazy diffuse left lung opacity and mild patchy right lung base opacity. Chest X-Ray 03/12/18 06:00 CONCLUSION: 1. Suboptimal study with the lung apices cut off the exam. 2. The endotracheal tube is no longer visualized and the patient may have been extubated. This needs to be correlated. 3. Mid expiratory study with cardiomegaly and hazy opacity in the lungs without significant change. Abdomen Ultrasound 03/13/18 00:00 CONCLUSION: 1. Small amount of ascites. Assessment and Plan - Plan Sacral decubitus ulcer with Enterococcus faecalis and Lisa colonization. Multiple BMs/diarrhea secondary to lactulose administration for hepatic encephalopathy. GI bleed on admission with hypotension Liver cirrhosis Chronic alcoholism Recommendations Continue wound care. At the present time I do not see any periwound erythema and only see sloughing. This can be addressed with good wound care. I discussed with the patient as well as the nurse taking care of the patient that due to ongoing diarrhea secondary to lactulose is likely contamination of the area. There is no erythema or tenderness and at this time I would like to avoid any antibiotics and would recommend only local wound care. Will sign off please call back if any change in clinical condition or questions.
[2018-03-15] MEDS: Temazepam 15 MG Capsule PO PRN (21:42)
[2018-03-15] MEDS: Melatonin 5 MG Tablet PO PRN (23:43)
[2018-03-16 08:07] LABS: Hemoglobin 13.3 gm/dL (13.0-17.0); Mean Corpuscular Hemoglobin 30.8 pg (27.0-34.0); Mean Corpuscular Volume 87.8 fL (80.0-100.0); Mean Platelet Volume 7.8 fL (7.0-11.0); Platelet Count 193 th/mm3 (150-450); Red Blood Count 4.33 mil/mm3 (4.50-5.90); Red Cell Distribution Width 16.9 % (11.6-17.2); White Blood Count 8.2 th/mm3 (4.0-11.0)
[2018-03-16 08:15] LABS: INR 1.6 Ratio; Prothrombin Time 16.1 sec (9.8-11.6)
[2018-03-16 08:37] LABS: Alanine Aminotransferase 44 U/L (12-78); Albumin 2.3 g/dL (3.4-5.0); Anion Gap 10 meq/L (5-15); Aspartate Aminotransferase 39 U/L (15-37); Blood Urea Nitrogen 3 mg/dL (7-18); Calcium 7.8 mg/dL (8.5-10.1); Carbon Dioxide 21.9 meq/L (21.0-32.0); Chloride 110 meq/L (98-107); Glomerular Filtration Rate Greater Than 89 mL/min (>89); Glucose,Random 87 mg/dL (74-106); Magnesium 1.9 mg/dL (1.5-2.5); Sodium 142 meq/L (136-145)
[2018-03-16 08:39] LABS: Alkaline Phosphatase 98 U/L (45-117); Phosphorus 3.9 mg/dL (2.5-4.9); Total Protein 6.3 g/dL (6.4-8.2)
[2018-03-16] MEDS: Chlorhexidine 0.12% Oral Kit 15 ML UDC OROPHARYNG SCH ×2 (09:00→19:58)
[2018-03-16] MEDS: Insulin NovoLIN Regular Correctional Sugar Inj SQ SCH ×3 (09:07→18:00)
[2018-03-16] MEDS: Oral Hygiene Kit OROPHARYNG SCH ×3 (09:08→16:00)
[2018-03-16] MEDS: Furosemide 40 MG Tablet PO SCH (09:56)
[2018-03-16] MEDS: rifAXIMin 550 MG Tablet PO SCH ×2 (09:56→20:29)
[2018-03-16] MEDS: Senna/Docusate Sodium 8.6/50 MG Tablet PO SCH ×2 (09:56→20:32)
[2018-03-16] MEDS: Collagenase Oint 30 GM Tube TOPICAL SCH (10:01)
--- NOTE | 2018-03-16 11:30 | P.PN ---
Subjective Interval history: Follow up for GI bleed, hepatic encephalopathy, cirrhosis, ascites, sacral ulcer. The patient is currently awake, alert, oriented x4. He reports feeling better again today. He states he was able to get some sleep last night. He denies any recent abdominal pain, nausea/vomiting, or fever/chills. He states he is eating more. He believes he had 2 loose bowel movements yesterday. He is looking forward to hopefully going home soon. He plans to stay with his mom. Mother is at bedside. Physical Exam Vital signs: Vital Signs 03/15/18 12:00 03/15/18 16:00 03/15/18 20:20 Temperature 97.6 F 98.3 F 98.4 F Pulse Rate 56 L 52 L 97 H Respiratory Rate 20 20 18 Blood Pressure 143/62 H 146/71 H 144/73 H Pulse Oximetry 97 98 97 03/15/18 22:00 03/15/18 23:15 03/16/18 00:00 Temperature 98.2 F Pulse Rate 51 L Respiratory Rate 18 18 18 Blood Pressure 143/67 H Pulse Oximetry 97 03/16/18 04:00 03/16/18 08:00 Temperature 98 F Pulse Rate 71 Respiratory Rate 18 18 Blood Pressure 143/71 H Pulse Oximetry 99 Intake & Output 03/15/18 03/16/18 03/16/18 18:59 06:59 18:59 Intake Total 240 / 240 1200 / 1200 Balance 240 / 240 1200 / 1200 Weight 92.6 kg Intake: Oral 240 / 240 1200 / 1200 Other: # Voids 6 Date of Last Bowel Movement 03/16/18 # Bowel Movements 1 Narrative: GENERAL: Well-nourished, well-developed young male patient in [facility]. SKIN: Warm and dry. Sacral ulcer covered with dressing, CDI. HEENT: Normocephalic. Atraumatic. Pupils equal and round. Mucous membranes pink and moist. CARDIOVASCULAR: Regular rate and rhythm. No murmur appreciated. RESPIRATORY: No accessory muscle use. Clear to auscultation. Breath sounds equal bilaterally. GASTROINTESTINAL: Abdomen soft, non-tender, nondistended. Normoactive bowel sounds x4. MUSCULOSKELETAL: No obvious deformities. Extremities without clubbing, cyanosis , or edema. NEUROLOGICAL: AAO x4. No obvious cranial nerve deficits. Normal speech. PSYCHIATRIC: Appropriate mood and affect; insight and judgment normal. - Urinary Catheter Management Indwelling Urethral Catheter Cath placed during this visit: yes, but has since been removed by the nurse Reason for continuing: Acute urinary retention Insertion date: 03/08/18 Insertion time: 10:30 Removal date: 03/14/18 Removal time: 10:00 Condom Cath placed during this visit: no Reason for continuing: Not indwelling catheter Results - Labs CBC & Chem 7: 03/16/18 06:40 03/16/18 06:40 Laboratory Results - last 24 hr 03/16/18 03/16/18 03/16/18 06:40 06:40 06:40 WBC 8.2 RBC 4.33 L Hgb 13.3 Hct 38.0 L MCV 87.8 MCH 30.8 MCHC 35.0 RDW 16.9 Plt Count 193 MPV 7.8 PT 16.1 H INR 1.6 Sodium 142 Potassium 4.0 Chloride 110 H Carbon Dioxide 21.9 Anion Gap 10 BUN 3 L Creatinine 0.48 L Estimated GFR Greater than 89 Random Glucose 87 Calcium 7.8 L Phosphorus 3.9 Magnesium 1.9 Total Bilirubin 2.5 H AST 39 H ALT 44 Alkaline Phosphatase 98 Total Protein 6.3 L Albumin 2.3 L Microbiology 03/12/18 19:05 Wound - Other Gram Stain - Final 03/12/18 19:05 Wound - Other Wound Culture - Final Enterococcus faecalis Lisa albicans - Procedures 03/01/18 - Procedure: EGD. Findings: Large amount of blood in stomach. Fresh blood in esophagus -arterial looking-could not be washed. Ulcers from previous banding site seen-possible source of bleeding. Epinephrine 6 cc -injected large amount of fresh blood. Edel tube placed 03/04/18 - Procedure: Ultrasound-guided abdominal paracentesis, removed 3.5L 03/07/18 - Procedure: IR performed successful TIPS placement; successful coil embolization of multiple short gastric and coronary varices Assessment and Plan - Plan 33-year-old male with hx of liver cirrhosis, hepatitis C, esophageal varices s/ p banding, substance abuse, hypertension, afib, presents with hematemesis and a SBP of 70s with HR 150s upon arrival, with copious amounts of hematemesis. Admitted to ICU upon arrival. Acute Hemorrhagic Shock Upper GI bleeding with Severe Acute Blood Loss Anemia secondary to bleeding esophageal varices -Hgb 5.3 upon arrival with active hemorrhagic bleeding, admitted to ICU s/p pressors and massive transfusions -GI consulted, appreciate assistance -S/p multiple blood transfusions during admission, totalling 33u pRBCs, 16u FFP, 10u platelets -03/01 Emergent EGD showed Large amount of blood in stomach. Fresh blood in esophagus -arterial looking-could not be washed. Ulcers from previous banding site seen-possible source of bleeding. Epinephrine 6 cc -injected large amount of fresh blood. Edel tube placed. -03/07 IR performed successful TIPS placement; successful coil embolization of multiple short gastric and coronary varices -03/08 Repeat EGD showed Esophageal varices grade 2-no banding done s/p recent tips, coil appliance by IR, Fantasma tube replaced -S/p octreotide drip, protonix drip -now on protonix 40mg po daily -on IV rocephin x2 weeks, to be completed 03/16 -Hgb now stable at 13.3, no further signs of bleeding -tolerating small amounts of oral intake, improving Acute toxic metabolic encephalopathy Hepatic encephalopathy with hyperammonemia -S/p admission to ICU -Ammonia trended 62 --> 29 --> 59 --> 66 --> 63 --> 28 --> 35 --> 20 --> 26 -Continue on lactulose, lasix, rifaximin, spironolactone, per GI -Monitor neuro checks -Much improved, now AAOx4 -Discussed with the patient to titrate lactulose to have at least 23 bowel movements daily Cirrhosis/Ascites secondary to hepatitis C and EtOH abuse, with complications of portal hypertension, coagulopathy -s/p hepatic encephalopathy, now AAOx4 -continue on lasix, spironolactone, rifaximin, lactulose -did not tolerate propranolol due to bradycardia -03/04 s/p Ultrasound-guided abdominal paracentesis by critical care MD, removed 3.5L, significantly improved respiratory status immediately post procedure -peritoneal fluid culture with NGTD -repeat U/S 03/13 with minimal ascites -continue to monitor -GI following -patient motivated with lifestyle changes Coagulopathy secondary to liver disease -Hematology consulted, appreciate recommendations Abdominal Pain -secondary to above -continue pain control with oxycodone and morphine prn Insomnia -secondary to hospitalization -continue melatonin -added temazepam 15mg po hs prn, patient slept well Sacral pressure ulcer -wound culture with enterococcus faecalis and lisa -suspect colonization, no signs of active infection -consulted ID, agrees with holding off on antibiotics for now, needs local wound care, appreciate assistance Prophylaxis -GI -pantoprazole -DVT -SCDs; pharmacological prophylaxis contraindicated with acute bleed PT eval and treat d/w patient- needs a PCP to ff up, [facility] process of getting Medicaid Discharge Planning: Clinically improving. Possible discharge tomorrow if stable and tolerating oral intake.
[2018-03-16] MEDS: Temazepam 15 MG Capsule PO PRN (21:59)
[2018-03-17 00:10] VITALS: PULSE 72
[2018-03-17] MEDS: Insulin NovoLIN Regular Correctional Sugar Inj SQ SCH ×2 (06:00)
[2018-03-17] MEDS: Oral Hygiene Kit OROPHARYNG SCH (06:33)
[2018-03-17 07:55] LABS: Hemoglobin 13.2 gm/dL (13.0-17.0); Mean Corpuscular HGB Conc 33.8 % (32.0-36.0); Mean Corpuscular Hemoglobin 30.1 pg (27.0-34.0); Mean Platelet Volume 7.5 fL (7.0-11.0); Platelet Count 179 th/mm3 (150-450); Red Blood Count 4.39 mil/mm3 (4.50-5.90); Red Cell Distribution Width 17.7 % (11.6-17.2); White Blood Count 8.3 th/mm3 (4.0-11.0)
[2018-03-17 08:03] LABS: INR 1.5 Ratio; Prothrombin Time 15.4 sec (9.8-11.6)
[2018-03-17 08:24] LABS: Albumin 2.4 g/dL (3.4-5.0); Anion Gap 6 meq/L (5-15); Aspartate Aminotransferase 32 U/L (15-37); Blood Urea Nitrogen 2 mg/dL (7-18); Calcium 7.8 mg/dL (8.5-10.1); Chloride 109 meq/L (98-107); Glomerular Filtration Rate Greater Than 89 mL/min (>89); Glucose,Random 92 mg/dL (74-106); Magnesium 1.9 mg/dL (1.5-2.5); Potassium 3.7 meq/L (3.5-5.1); Sodium 139 meq/L (136-145)
[2018-03-17 08:27] LABS: Alanine Aminotransferase 42 U/L (12-78); Alkaline Phosphatase 105 U/L (45-117); Phosphorus 4.1 mg/dL (2.5-4.9); Total Protein 6.6 g/dL (6.4-8.2)
--- NOTE | 2018-03-17 08:59 | P.DS ---
Date of admission: 03/01/18 23:48 Primary care physician: UNKNOWN Attending physician on discharge: Domingo Arriaga Anticipated date of discharge: 03/17/18 Brief History from admission: This is a 33-year-old male. Date of admission 03/01/2018. Past medical includes hepatitis C, known liver cirrhosis, esophageal varices patient was actually admitted 02/14 with upper GI bleed. Patient had 3 columns of 2-3 grade esophageal varices that evaluated Sean with banding.. Patient presents to [facility] 03/01 witha chief complaint of hematemesis. EMS reports that his initial blood pressure on their arrival was in the 70s-80s with a heart rate in the 150s. They state that he has put out copious amounts of hematemesis. Patient states that this began approximately 30 minutes prior to arrival. He does admit to fever and chills as well with abdominal pain. No headache no recent trauma. No chest pain or shortness of breath. Patient was emergently intubated and central line was placed in the femoral region. Hemoglobin is noted to be 5.2. Emergently transfused 3 units PRBCs. GI was consulted to try to perform an upper endoscopy revealed copious amounts of blood in the esophagus. Epinephrine injection was attempted. Fantasma tube was placed. IR was called. Repeat laboratories revealed significant coagulopathy with elevated INR/PTT and low fibrinogen. Unable to do intervention. State they do not tips at this facility. Patient needs to be stabilized prior to any transfer. Remains intubated on low-dose norepinephrine drip. Currently receiving K Centra, FFP and cryoprecipitate. Patient update on day of discharge: Patient reports feeling better again today. He is tolerating more oral intake. Denies any nausea, vomiting, abdominal pain, or fever/chills. He wants to go home. He reports few loose nonbloody bowel movements daily. Denies any new medical complaints. DS: Diagnosis - Discharge Diagnosis (1) Hematemesis Status: Acute (2) Anemia requiring transfusions Status: Acute (3) GI bleed Status: Acute (4) Esophageal varices in cirrhosis Status: Acute (5) Ascites of liver Status: Acute DS: Medications - Discharge Medications Prescriptions: furosemide 40 mg PO DAILY #30 tab lactulose 30 ml PO Q6H 30 Days #3600 ml pantoprazole 40 mg PO DAILY #30 tab rifaximin [Xifaxan] 550 mg PO Q12HR #60 tab spironolactone 150 mg PO DAILY #30 tab DS: Summary Hospital Course: 33-year-old male with hx of liver cirrhosis, hepatitis C, esophageal varices s/ p banding, substance abuse, hypertension, afib, presents with hematemesis and a SBP of 70s with HR 150s upon arrival, with copious amounts of hematemesis. Admitted to ICU upon arrival. Acute Hemorrhagic Shock Upper GI bleeding with Severe Acute Blood Loss Anemia secondary to bleeding esophageal varices. Hgb 5.3 upon arrival with active hemorrhagic bleeding, admitted to ICU s/p pressors and massive transfusions. GI consulted. S/p multiple blood transfusions during admission, totalling 33u pRBCs, 16u FFP, 10u platelets. 03/01 Emergent EGD showed Large amount of blood in stomach. Fresh blood in esophagus -arterial looking-could not be washed. Ulcers from previous banding site seen-possible source of bleeding. Epinephrine 6 cc -injected large amount of fresh blood. Edel tube placed. 03/07 IR performed successful TIPS placement; successful coil embolization of multiple short gastric and coronary varices. 03/08 Repeat EGD showed Esophageal varices grade 2-no banding done s/p recent tips, coil appliance by IR, Fantasma tube replaced. S/p octreotide drip , protonix drip. Now on protonix 40mg po daily. Completed IV rocephin x2 weeks. Hgb now stable at 13.2, no further signs of bleeding. Tolerating oral intake. GI signed off. Stable for discharge. Outpatient f/up. Acute toxic metabolic encephalopathy/Hepatic encephalopathy with hyperammonemia. S/p admission to ICU. Ammonia trended 62 --> 29 --> 59 --> 66 - -> 63 --> 28 --> 35 --> 20 --> 26. Continued on lactulose, lasix, rifaximin, spironolactone, per GI. Monitor neuro checks. Much improved, now AAOx4. Discussed with the patient to titrate lactulose to have at least 23 bowel movements daily. Stable. Outpatient f/up with GI. Cirrhosis/Ascites secondary to hepatitis C and EtOH abuse, with complications of portal hypertension, coagulopathy. S/p hepatic encephalopathy, now AAOx4. Continue on lasix, spironolactone, rifaximin, lactulose. Did not tolerate propranolol due to bradycardia. 03/04 s/p Ultrasound-guided abdominal paracentesis by critical care MD, removed 3.5L, significantly improved respiratory status immediately post procedure. Peritoneal fluid culture with NGTD. Repeat U/S 03/13 with minimal ascites. Patient motivated with lifestyle changes. Outpatient f/up with GI. Coagulopathy secondary to liver disease. Hematology consulted, appreciate recommendations. Received multiple transfusions throughout admission. Labs stable. Abdominal Pain. Secondary to above. Given pain control with oxycodone and morphine prn. Pain resolved. Insomnia. Secondary to hospitalization. Continued melatonin. Added temazepam 15mg po hs prn, patient slept well. Sacral pressure ulcer. Wound culture with enterococcus faecalis and apolinar. Suspect colonization, no signs of active infection. Consulted ID, agrees with holding off on antibiotics, needs local wound care. Wound care nurse gave recommendations. - Time Spent with Patient Total time spent providing and/or coordinating discharge services: Greater than 30 minutes - Quality: VTE Deep Vein Thrombosis/Pulmonary Embolism Present on Admission: No Exam Vital signs: Vital Signs 03/16/18 12:00 03/16/18 16:00 03/16/18 19:50 Temperature 97.7 F 97.6 F 98.5 F Pulse Rate 73 71 73 Respiratory Rate 18 Blood Pressure 146/70 H 142/76 H 146/69 H Pulse Oximetry 93 L 99 99 03/16/18 23:41 03/17/18 00:47 03/17/18 06:05 Temperature 98.1 F Pulse Rate 72 Respiratory Rate 17 Blood Pressure 139/72 Pulse Oximetry 98 Intake & Output 03/16/18 03/17/18 03/17/18 18:59 06:59 18:59 Intake Total 560 / 560 480 / 480 Balance 560 / 560 480 / 480 Intake: Oral 560 / 560 480 / 480 Other: # Voids 9 3 Date of Last Bowel Movement 03/16/18 03/16/18 # Bowel Movements 1 0 Narrative: GENERAL: Well-nourished, well-developed young male patient in [facility]. SKIN: Warm and dry. Sacral ulcer covered with dressing, CDI. HEENT: Normocephalic. Atraumatic. Pupils equal and round. Mucous membranes pink and moist. CARDIOVASCULAR: Regular rate and rhythm. No murmur appreciated. RESPIRATORY: No accessory muscle use. Clear to auscultation. Breath sounds equal bilaterally. GASTROINTESTINAL: Abdomen soft, non-tender, nondistended. Normoactive bowel sounds x4. MUSCULOSKELETAL: No obvious deformities. Extremities without clubbing, cyanosis , or edema. NEUROLOGICAL: AAO x4. No obvious cranial nerve deficits. Normal speech. PSYCHIATRIC: Appropriate mood and affect; insight and judgment normal. Results Procedures completed during hospitalization: 03/01/18 - Procedure: EGD. Findings: Large amount of blood in stomach. Fresh blood in esophagus -arterial looking-could not be washed. Ulcers from previous banding site seen-possible source of bleeding. Epinephrine 6 cc -injected large amount of fresh blood. Edel tube placed 03/04/18 - Procedure: Ultrasound-guided abdominal paracentesis, removed 3.5L 03/07/18 - Procedure: IR performed successful TIPS placement; successful coil embolization of multiple short gastric and coronary varices Labs on day of discharge: Labs from last 24 hours 03/17/18 03/17/18 03/17/18 07:27 07:27 07:27 WBC 8.3 RBC 4.39 L Hgb 13.2 Hct 39.0 MCV 89.0 MCH 30.1 MCHC 33.8 RDW 17.7 H Plt Count 179 MPV 7.5 PT 15.4 H INR 1.5 Sodium 139 Potassium 3.7 Chloride 109 H Carbon Dioxide 24.0 Anion Gap 6 BUN 2 L Creatinine 0.39 L Estimated GFR Greater than 89 Random Glucose 92 Calcium 7.8 L Phosphorus 4.1 Magnesium 1.9 Total Bilirubin 2.4 H AST 32 ALT 42 Alkaline Phosphatase 105 Total Protein 6.6 Albumin 2.4 L - Impressions ITS Impressions Abdomen/Pelvis CTA 03/06/18 00:00 CONCLUSION: 1. The abdominal aorta, proximal celiac and superior mesenteric arteries are within normal limits. There is no evidence of active extravasation of contrast. 2. Cirrhotic liver again noted as well as splenomegaly. 3. New consolidation in both lung bases with small pleural effusions. There is moderate to large amount of ascitic fluid now noted throughout the abdomen as well as anasarca. TIPS 03/07/18 00:00 CONCLUSION: 1. Technically successful TIPS placement, as above. 2. Technically successful coil embolization of multiple short gastric and coronary varices. 3. PLAN: Baseline ultrasound examination in 2 weeks with surveillance ultrasound at 3 months, 6 months and one year. Abdomen X-Ray 03/11/18 00:00 CONCLUSION: Evidence for previous TIPS procedure Mild colonic ileus Probable ascites. Chest X-Ray 03/12/18 06:00 CONCLUSION: 1. Suboptimal study with the lung apices cut off the exam. 2. The endotracheal tube is no longer visualized and the patient may have been extubated. This needs to be correlated. 3. Mid expiratory study with cardiomegaly and hazy opacity in the lungs without significant change. Abdomen Ultrasound 03/13/18 00:00 CONCLUSION: 1. Small amount of ascites. Discharge Plan - Discharge Disposition Patient Disposition: 01 Discharge Home - Discharge Condition Condition: Stable - Discharge Order Discharge Orders: Discharge Order (Routine); Ordered 03/17/18 Ordered By: Johnna Ramsey - Discharge Details Anticipated Discharge Date: 03/17/18 - Physicians Team Primary Care Provider: UNKNOWN, Attending Provider: Domingo Arriaga Other Providers: Katy Forrester MD ; Lauren Mancilla MD
[2018-03-17 09:16] VITALS: BP 138/63; RESP 24; TEMP 97.7; O2SAT 99
[2018-03-17] MEDS: Furosemide 40 MG Tablet PO SCH (09:26)
[2018-03-17] MEDS: rifAXIMin 550 MG Tablet PO SCH (09:26)
[2018-03-17] MEDS: Chlorhexidine 0.12% Oral Kit 15 ML UDC OROPHARYNG SCH (09:30)
[2018-03-17] MEDS: Collagenase Oint 30 GM Tube TOPICAL SCH (09:31)
[2018-03-17] MEDS: Senna/Docusate Sodium 8.6/50 MG Tablet PO SCH (09:31)
== END 2018-03-17 11:56 | disposition home or self-care (01) | DRG 405 ==
LOC: NEPE 21:32 → NEDA 23:48 → HIMC 23:55 → N06 03-14 14:37
PROVIDERS: ADMIT Internal Medicine; ATTEND Internal Medicine
CPT/HCPCS: 31500; 36012; 36430; 36556; 36569; 36600; 37182; 37241; 49082; 71010; 71045; 74000; 74018; 74174; 75889; 76499; 76705; 80048; 80053; 82042; 82105; 82140; 82150; 82272; 82805; 82945; 82948; 82962; 83605; 83615; 83690; 83735; 84100; 84132; 84155; 84157; 84484; 85014; 85018; 85025; 85027; 85049; 85335; 85384; 85590; 85610; 85613; 85730; 86146; 86147; 86301; 86850; 86900; 86901; 86920; 86923; 86927; 86965; 87040; 87070; 87077; 87106; 87186; 87205; 87275; 87276; 87641; 87804; 89051; 90774; 90775; 90784; 92610; 93005; 94002; 94003; 94150; 94640; 94650; 94651; 94656; 94657; 94665; 94667; 96125; 96374; 96375; 97110; 97163; 97167; 97530; 97535; 99291; A4646; C1014; C1725; C1769; C1874; C1887; C1894; C8952; C9113; C9132; C9503; G0195; J0171; J0696; J1120; J1940; J2250; J2270; J2354; J2370; J2405; J2704; J3010; J3411; J3430; J3475; J3480; J3590; J7030; J7040; J7050; J7120; J7189; P9016; P9017; P9031; P9035; P9045; P9047; Q0169; Q9949; Q9967